=== PATIENT | male | born 1950 | race Caucasian/White ===

== ENCOUNTER 2023-12-12 17:18 | Inpatient (IN) | payer OTHER, MEDICARE, SELFPAY ==
[2023-12-12 12:49] VITALS: BP 149/94
[2023-12-12 13:53] LABS: % Basophils 0.5 % (0-2); % Eosinophils 1.4 % (0-6); % Immature Granulocytes 0.2 % (0-0.5); % Lymphocytes 11.3 % (20.5-51.1); % Monocytes 14.3 % (1.7-9.3); % Neutrophils 72.3 % (42.2-75.2); Absolute Basophils 0.1 10^3/uL (0-0.2); Absolute Eosinophils 0.1 10^3/uL (0-0.7); Absolute Lymphocytes 1.1 10^3/uL (1.2-3.4); Absolute Monocytes 1.4 10^3/uL (0.1-0.6); Absolute Neutrophils 7.1 10^3/uL (1.4-6.5); Hematocrit 39.5 % (39.0-52.0); Mean Corp Hgb Conc. 32.9 g/dL (33.0-37.0); Mean Corpuscular Hgb 27.5 pg (27.0-31.0); Mean Corpuscular Volume 83.5 fL (80.0-94.0); Mean Platelet Volume 8.8 fL (7.4-10.4); Nucleated Red Blood Cells % 0 % (-); Platelet Count 282 10^3/uL (130-400); Red Blood Cell Count 4.73 10^6/uL (4.70-6.10); Red Cell Dist. Width 15.2 % (11.5-14.5); White Blood Cell Count 9.8 10^3/uL (4.8-10.8)
[2023-12-12 14:31] LABS: ALT (SGPT) 20 U/L (0-50); AST (SGOT) 26 U/L (17-59); Albumin 4.5 g/dl (3.5-5.0); Alkaline Phosphatase 90 U/L (38-126); Blood Urea Nitrogen 26 mg/dl (9-20); Calcium 9.3 mg/dl (8.4-10.2); Carbon Dioxide 21 mmol/L (22-30); Chloride 106 mmol/L (98-107); Glucose 145 mg/dl (70-99); Potassium 3.8 mmol/L (3.5-5.1); Sodium 143 mmol/L (135-145); Total Bilirubin 1.2 mg/dl (0.2-1.3); Total Protein 7.2 g/dl (6.3-8.2)
--- NOTE | 2023-12-12 14:36 | ED.GENMED ---
History of Present Illness
General
Chief Complaint: Abdominal Pain
Source: patient
Exam Limitations: none
Time Seen by Provider: 12/12/23 14:05
Nursing documentation reviewed up to this point in time: agreed with
Travel History
Have you had any contact with someone who has COVID-19?: No
Do you have any symptoms of coronavirus? Fever > 100 degrees, chills, cough, shortness of breath, sore throat, loss of taste or smell, muscle aches, or headache?: No
History of Present Illness
History of Present Illness:
Patient is a 73-year-old male with history of scleroderma CAD stents x 6 hypertension hyperlipidemia SC, presents to the ER for evaluation. Patient reports on Sunday 3 days ago he started with vomiting. He vomited once on Sunday but since then he
has had constant diarrhea. He complains of feeling very weak fatigued and dehydrated. Patient is on Xifaxan for bowel issues related to scleroderma but has not taken the past couple days . No other antibx.
Past History
Past History
ED Past Medical History: CAD, GERD, HTN, Hypercholesterolemia, NIDDM, SC and Other (scleroderma, SBO,)
ED Past Surgical History: Cardiac (Stents X 6) and Cholecystectomy
Social History
Tobacco: Non-smoker
Alcohol: None
Drug: None
Personal:
Living: with family
Family History
Family History: CAD
Review of Systems
Review of Systems
Allergies reviewed?: Yes
All Other Systems: ROS reviewed and negative except as documented in HPI and ROS
Constitutional: Reports fatigue
EENT: Reports no symptoms
Respiratory: Reports no symptoms
ABD/GI: Reports diarrhea
: Reports no symptoms
Musculoskeletal: Reports back pain
Skin: Reports no symptoms
Endocrine: Reports no symptoms
Hematologic/Lymphatic: Reports no symptoms
Psychiatric: Reports no symptoms
Phy Exam
General Physical Exam
General Presentation: no apparent distress
General age: appears stated age
General Skin: warm and dry
General Habitus: elderly
General Mental: alert
General Hydration: dry mucous membranes
Cardiovascular Exam
Cardiovascular Exam: tachycardia
Pulmonary Exam
Pulmonary Exam: lungs clear and no respiratory distress
Gastrointestinal Exam
Gastrointestinal Exam: non tender and soft
Neurological Exam
Neurological Exam: alert and oriented x3
Musculoskeletal Exam
Musculoskeletal Exam: full ROM
Skin Exam
Skin Exam: normal color and warm/dry
Course
Orders/Labs/Results
Orders:
Orders
12/12/23 13:38
IV Insert/Care/Rem.- Treatment PRN
12/12/23 13:42
Complete Blood Count/With Diff Urgent
Comprehensive Metabolic Panel Urgent
Lipase Urgent
12/12/23 15:21
Ondansetron Injectable [Zofran] 4 mg .ROUTE .STK-MED ONE
Ondansetron Injectable [Zofran] 4 mg IV NOW STA
12/12/23 15:58
C DIFF [C difficile Antigen & Toxins] Urgent
SEBAS Source: Feces/Stool
Specimen Description:
Stool Culture Urgent
SEBAS Source: Feces/Stool
Specimen Description:
Abnormal Lab Results
12/12/23
13:42
MCHC 32.9 L g/dL
(33.0-37.0)
RDW 15.2 H %
(11.5-14.5)
Absolute Neuts (auto) 7.1 H 10^3/uL
(1.4-6.5)
Absolute Lymphs (auto) 1.1 L 10^3/uL
(1.2-3.4)
Absolute Monos (auto) 1.4 H 10^3/uL
(0.1-0.6)
Lymphocytes % 11.3 L %
(20.5-51.1)
Monocytes % 14.3 H %
(1.7-9.3)
Carbon Dioxide 21 L mmol/L
(22-30)
BUN 26 H mg/dl
(9-20)
Creatinine 1.6 H mg/dL
(0.7-1.3)
Glucose 145 H mg/dl
(70-99)
12/12/23 13:42
12/12/23 13:42
Vital Signs
Initial and Last Documented VS:
Initial Vital Signs
Temp Pulse Resp BP Pulse Ox
98.6 F 110 20 149/94 99
12/12/23 12:49 12/12/23 12:49 12/12/23 12:49 12/12/23 12:49 12/12/23 12:49
Last Documented Vital Signs
Temp Pulse Resp BP Pulse Ox
98.6 F 110 20 149/94 99
12/12/23 12:49 12/12/23 12:49 12/12/23 12:49 12/12/23 12:49 12/12/23 12:49
MDM/Problems Addressed
MDM/Problems Addressed:
Patient is a 71 show male with history of scleroderma CAD SC stents presents to the ER for evaluation. Patient has had several days of constant diarrhea he started out with vomiting but only vomited once. He complains of feeling very weak. On
exam he is obviously dry, dehydrated. He presented initially tachycardic. No white count stable hemoglobin however patient has increased BUN/creatinine with a BUN 26, creatinine 1.6. Patient was given fluids and nausea medicine here in the ER.
Will obtain stool culture C. difficile. Patient is on Xifaxan but has not taken it in the past couple days
*Pulse Oximetry
Patient hypoxic: no
*Critical Care Note
Total Time (30-74mins, 75-104mins- exclusive of procedures): Not Applicable
Data Reviewed
Review of Other/Old Records Reveals: Labs
Source: patient
ED Attending Note
-
Portions of this chart may have been created with voice recognition software.� Occasional wrong word or��sound alike� substitutions may have occurred due to the inherent limitations of voice recognition software.
Discharge Plan
Departure
Patient Disposition: Admit
Date of Disposition: 12/12/23
Time of Disposition: 16:03
Admit to: Med/Surg
Admit to doctor: Ramirez
Presentation/result/management discussed w/ accepting MD/DO: Hospitalist
Patient with high blood pressure during this ER visit?: Yes
Condition: Fair
Covid-19: Not Applicable
Discharge Problem:
Dehydration, Diarrhea, Acute renal insufficiency
Prescriptions:
No Action
losartan 50 MG tablet
50 mg PO HS
Motegrity 2 MG tablet
2 mg PO HS
Hold Instructions: Resume on 04/20/23. Discuss with your rehab director occupational therapist regarding when to resume this medication.
aspirin 81 MG tablet,delayed release (DR/EC)
81 mg PO HS
atorvastatin 80 MG tablet
80 mg PO DAILY
pantoprazole 40 MG tablet,delayed release (DR/EC)
40 mg PO DAILY
nifedipine 30 MG tablet extended release
30 mg PO HS
prednisone 5 mg Tablet
5 mg PO DAILY
glimepiride 2 mg Tablet
2 mg PO DAILY
Domperidone
10 mg PO DAILY
Hold Instructions: Resume on 04/20/23. Discuss with your rehab director occupational therapist regarding when to resume this medication
Rx Instructions:
patient state he gets this from [facility]
pyridostigmine bromide 60 mg tablet
90 mg PO AC
Hold Instructions: Resume on 03/23/23.
Referrals:
Tamara Bell MD [Family Provider] -
Interventions
Interventions:
*Risk Screen - Suicide Last Done: 12/12/23 12:49
*General Assessment Last Done: 12/12/23 12:49
*Neglect/Abuse Screening Last Done: 12/12/23 12:49
ED- Fall Risk Assessment Last Done: 12/12/23 13:59
UX-Tgrofg-Roinxdrxrg Assessment Last Done: 12/12/23 13:52
Discharge Date and Time
Print Language: GUATEMALAN
[2023-12-12 15:06] LABS: Lipase 61 U/L (23-300)
[2023-12-12] MEDS: ZOFRAN 4 MG IV ×2 (15:21→18:28)
[2023-12-12 16:11] VITALS: BP 156/79
--- NOTE | 2023-12-12 16:48 | HPS.HSE ---
Family Physician
-
Family Physician: Tamara Bell
Chief Complaint
-
Diarrhea
History of Present Illness
It all started on Sunday. He threw up once on Sunday. Subsequent to that he started to have diarrhea.
Diarrheal stools are loose and watery. If he drinks it just comes right through him. Even if he does not drink every half an hour he has a loose watery stool. He has chills with it. No fevers recorded at home. He has been feeling exhausted for
the last couple of weeks.
His symptoms crampy abdominal pain now and then.
Since the last 2 weeks when he comes back home after work he feels tired and exhausted.
No new medical diagnoses given. No new medications or any change in medications recently. No recent antibiotics in the last 3 months.
Has a history of scleroderma with no active disease. Not on any treatments. He has changes of the skin at the joints of the hands.
He had an issue with pseudoobstruction for which he was referred to [facility] so saw Dr. Elder and he has been on rifaximin and another mediacation he cant recollect the name for a year now.
He gets rifaximin from [place] as it is expensive here.
Ever since he has been on this new medications ,he has been doing okay without any further pseudoobstruction.
No issues with chronic diarrhea.
No recent travel. No pets at home. No unusual foods consumed.
Medical History
Past Medical History
Past Medical History: Reports CAD (Coronary stents), GERD, HTN and NIDDM
Additional Past Medical History:
Scleroderma
History of SIBO
Past Surgical History: Reports Cholecystectomy
Social History
Tobacco: Non-smoker
Alcohol: None
Drug: None
Employment: Employed
Family History
Family History: Not pertinent
Allergies / Home Medications
Allergies reflects when Allergies were last updated in [employer].
Home Medications with original date entered in [employer]
Allergy/Medication List:
Allergies
Allergy/AdvReac Type Severity Reaction Status Date / Time
No Known Allergies Allergy Verified 12/12/23 12:52
Home Medications
losartan 50 mg tablet 50 mg PO HS Blood pressure 06/19/20
aspirin 81 mg tablet,delayed release 81 mg PO HS Blood clot prevention/tx 06/28/20
atorvastatin 80 mg tablet 80 mg PO DAILY High cholesterol 06/28/20
nifedipine 30 mg tablet,extended release 30 mg PO HS Blood pressure 06/28/20
pantoprazole 40 mg tablet,delayed release 40 mg PO DAILY Gastrointestinal issue 06/28/20
glimepiride 2 mg tablet 2 mg PO DAILY Diabetes 02/08/22
prednisone 5 mg tablet 5 mg PO DAILY SCLERODERMA 02/08/22
pyridostigmine bromide 60 mg tablet 30 mg PO BID@0730,1730 03/19/23
acetaminophen 500 mg tablet (Tylenol Extra Strength) 1,000 mg PO DAILYPRN PRN MILD PAIN 12/12/23
prucalopride 2 mg tablet (Motegrity) 2 mg PO HS 12/12/23
rifaximin 550 mg tablet (Xifaxan) 225 mg PO DAILY 12/12/23
Review of Systems
-
A 12 point ROS was completed and negative except as noted: Yes
Physical Exam
Vital Signs
Vital Signs
Temp Pulse Resp BP Pulse Ox
98.6 F 85 18 156/79 99
12/12/23 12:49 12/12/23 16:11 12/12/23 16:11 12/12/23 16:11 12/12/23 16:11
Physical Exam
General: No Apparent Distress
HEENT: Moist mucous membranes
Respiratory: Clear
Cardiac: S1/S2, Regular Rhythm and Tachycardia
GI: Soft, Non Distended, Normal Bowel Sounds and Tender (Discomfort in all quadrants but no rebound guarding or rigidity.)
Musculoskeletal: No Edema
Neuro: AO x 3
Psych: Calm
Laboratory Results
-
12/12/23 13:42
12/12/23 13:42
Laboratory Results
Total Bilirubin 1.2 mg/dl (0.2-1.3) 12/12/23 13:42
AST 26 U/L (17-59) 12/12/23 13:42
ALT 20 U/L (0-50) 12/12/23 13:42
Alkaline Phosphatase 90 U/L (38-126) 12/12/23 13:42
Lipase 61 U/L (23-300) 12/12/23 13:42
Data Reviewed
-
Lab Data: Labs Reviewed by me
Impression/Plan
-
Acute diarrheal illness of unclear etiology complicated by dehydration.
Patient has history of GI issues including SIBO, intestinal pseudoobstruction? From scleroderma, currently on treatment of his rifaximin plus another unknown medication presents with a week worth of acute diarrheal illness. Multiple episodes of
loose watery stools. Associated chills but no fevers. Not septic.
He had a history of prior Campylobacter diarrhea.
No recent antibiotic exposure.
Doubt this is toxin related gastroenteritis or viral enteritis as it is going on for days now. Rule out bacterial infection or inflammation. Patient also has SIBO on rifaximin which I would continue. Increase the dose to regular treatment dose.
Obtain a CT of the abdomen pelvis with oral contrast
Obtain stool culture including C. difficile, bacterial culture, white count.
Support with IV fluids and symptomatic treatment for nausea.
Consider GI consultation based on initial evaluation.
FLORENCE-suspect secondary to dehydration. Continue with IV fluids and follow creatinine.
Hypertension-continue with his home medication
History of scleroderma-currently not on any treatments
Await medication reconciliation to be completed.
Full code
[2023-12-12] MEDS: NSS 1000 IV (18:05)
[2023-12-12 18:14] VITALS: BP 154/85
[2023-12-12 18:15] VITALS: BMI 20.7
[2023-12-12] MEDS: LOVENOX 40 MG SC (18:26)
--- NOTE | 2023-12-12 20:51 | W.PN.UPDATE ---
Addendum entered and electronically signed by MAILE Villafuerte 12/12/23 21:26:
Pharmacist confirm that there is no 225mg of rifaximin. Spoke to the patient and explained that no 225mg dose and its recommended by the admitting physician to increase the dose to the regular treatment dose of 550mg BID at the mean time. Patient
agreed and the dose was changed back to 550 mg as ordered on admission time.
Original Note:
Update Note
Progress Note Update
Patient requested to change the order of rifaaximin of 550 mg bid to 225 mg as it the dose that he is receiving at home. Order changed per the patient request.
[2023-12-12 21:03] LABS: Urine Sodium 70 mmol/L (30-90)
[2023-12-12] MEDS: XIFAXAN 550 MG PO (22:01)
[2023-12-12] MEDS: ASPIR LOW (ENTERIC COATED) 81 MG PO (22:01)
[2023-12-12] MEDS: PROCARDIA XL (EXTENDED RELEASE) 30 MG PO (22:02)
[2023-12-12 22:30] VITALS: BP 144/71
[2023-12-12 22:32] LABS: Glucose - Point of Care 101 mg/dl (70-99)
[2023-12-13] MEDS: NSS 1000 IV ×3 (02:53→19:38)
[2023-12-13] MEDS: ZOFRAN 4 MG IV (05:41)
[2023-12-13] MEDS: OMNIPAQUE 50 ML PO (06:02)
--- NOTE | 2023-12-13 06:16 | PTCARENOTE ---
Po Contrast for CT started at 6am.
[2023-12-13 06:17] LABS: Hematocrit 35.7 % (39.0-52.0); Hemoglobin 11.9 g/dL (13.0-18.0); Mean Corp Hgb Conc. 33.3 g/dL (33.0-37.0); Mean Corpuscular Hgb 28.1 pg (27.0-31.0); Mean Corpuscular Volume 84.2 fL (80.0-94.0); Mean Platelet Volume 8.9 fL (7.4-10.4); Platelet Count 247 10^3/uL (130-400); Red Blood Cell Count 4.24 10^6/uL (4.70-6.10); Red Cell Dist. Width 15.1 % (11.5-14.5); White Blood Cell Count 8.2 10^3/uL (4.8-10.8)
[2023-12-13 06:40] LABS: Blood Urea Nitrogen 17 mg/dl (9-20); Carbon Dioxide 21 mmol/L (22-30); Chloride 112 mmol/L (98-107); Estimated Creatinine Clearance 58 ml/min; Glucose 127 mg/dl (70-99); Potassium 3.4 mmol/L (3.5-5.1); Sodium 143 mmol/L (135-145); eGFR > 60.00
[2023-12-13 07:00] VITALS: BP 117/64
[2023-12-13] MEDS: XIFAXAN 550 MG PO ×2 (08:19→19:38)
[2023-12-13] MEDS: LIPITOR 80 MG PO (08:19)
[2023-12-13] MEDS: DELTASONE 5 MG PO (08:20)
[2023-12-13] MEDS: PROTONIX 40 MG PO (08:21)
[2023-12-13 08:26] LABS: Glucose - Point of Care 153 mg/dl (70-99)
[2023-12-13] MEDS: MORPHINE SULFATE 1 MG IV ×2 (08:42→15:54)
[2023-12-13] MEDS: NOVOLOG FLEXPEN-LOW RESISTANCE SC ×3 (09:46→16:46)
--- NOTE | 2023-12-13 10:09 | W.PN.HOSP.TC ---
Today's Communication/Plan
-
continue with the rifaximin
Stop pyridostigmine
Follow CT of the abdomen pelvis
Continue with IV fluids
Consult GI
Assessment / Plan
Assessment / Plan
Acute diarrheal illness of unclear etiology complicated by dehydration.
Patient has history of GI issues including SIBO, intestinal pseudoobstruction? From scleroderma, currently on treatment of his rifaximin plus Pyridostigmine presented with a week worth of acute diarrheal illness. Multiple episodes of loose watery
stools. Associated chills but no fevers. Not septic.
He had a history of prior Campylobacter diarrhea.
No recent antibiotic exposure.
Doubt this is toxin related gastroenteritis or viral enteritis as it is going on for days now. Rule out bacterial infection or inflammation. Patient also has SIBO on rifaximin which I would continue. Increase the dose to regular treatment dose
for SIBO.
Obtain a CT of the abdomen pelvis with oral contrast
Obtain stool culture including C. difficile, bacterial culture, white count.
CW IV fluids and symptomatic treatment for nausea.
Consult GI consultation .
Hold Pyridostigmine ( uses it for pseudo obstruction)
FLORENCE-suspect secondary to dehydration. Improved .Continue with IV fluids and follow creatinine.
Hypertension-continue with his home medication
History of scleroderma-currently not on any treatments
Back pain with right leg sciatica-patient now agreeable for pain medication which I would use narcotics.Avoid NSAIDs as his renal function is just recovering.
Full code
total time spent on today's encounter was 52 minutes which included time spent in counseling the patient regarding diagnosis and treatment plan as listed above, goals of care, and symptom management. Case was discussed with nursing staff,
specialists . All labs and imaging personally reviewed by me. Remainder the time spent in detailed review of previous records, lab data, imaging, and other medical provider documentation.
Anticipated Discharge: > 48 hours
Subjective/Interval History
-
Date of Service: December 13, 2023
Feels bit better but is still ongoing diarrheal stools which are still multiple.
Has got chronic back pain and right leg sciatica and he was due to get an epidural this week. He was advised back surgery 2.
Objective Data
-
Labs:
Laboratory Results
12/13/23
06:00
WBC 8.2
Hgb 11.9 L
Hct 35.7 L
Plt Count 247
Sodium 143
Potassium 3.4 L
Chloride 112 H
Carbon Dioxide 21 L
BUN 17
Creatinine 1.1
Glucose 127 H
Calcium 8.0 L
Vital Signs:
Vital Signs
Temp Pulse Resp BP Pulse Ox
97.7 F 82 18 117/64 100
12/13/23 07:00 12/13/23 07:00 12/13/23 07:00 12/13/23 07:00 12/13/23 07:00
I&O
12/12/23 12/13/23 12/14/23
06:59 06:59 06:59
Intake Total 580 / 580
Output Total 225 / 225
Balance 355 / 355
Review of Systems
-
Constitutional: Denies Fever
Respiratory: Denies Trouble Breathing
Cardiac: Denies Chest Pain
Abdomen/GI: Reports Diarrhea; Denies Abdominal Pain, Nausea or Vomiting
Neuro: Denies Dizzy
Physical Exam
-
General: No Apparent Distress
HEENT: Moist Mucous Membranes
Respiratory: Clear to Auscultation
Cardiac: Regular Rhythm and S1/S2
GI: Soft
Neuro: AO x 3
Psych: Calm
Data Reviewed
-
Labs: Labs Reviewed by me
[2023-12-13 12:02] LABS: Glucose - Point of Care 124 mg/dl (70-99)
[2023-12-13 12:02] LABS: Glycohemoglobin (HgbA1c) 6.6 % (4.0-5.6)
--- NOTE | 2023-12-13 12:03 | CON.GI ---
Consultation
-
Date/Time Consultation Requested: 12/13/23 1030
Date/Time Consultation Performed: 12/13/23 1145
Requesting Provider: Dr. Ramirez
Performing Provider: Dr. Alvarez / Martha Rich PA-C
Reason for Consultation: diarrhea
Medical History
Chief Complaint / HPI
Chief Complaint: diarrhea/vomiting
History of Present Illness:
This is a 73 year old male with a past medical history of scleroderma, SIBO, chronic colonic pseudoobstruction, NIDDM who is well-known to our GI practice and follows with Dr. Esparza who presents to the hospital with acute diarrhea that started 4
days ago, 12/08. He states symptoms came on suddenly, he had nausea, vomiting and diarrhea, described as watery stools 'pouring out' 5 times a day. The vomiting subsided after the first day, but he nausea and diarrhea persisted. No abdominal pain,
fever, or black, tarry or bloody stools. No recent travel, sick contacts, or recent antibiotic use. He did eat a tuna sandwich, which was a food he does not usually eat, from a restaurant the night before symptom onset. He has a prior history of a
Campylobacter infection in February 2023 with diffuse colitis, which was treated with azithromycin. He had a colonoscopy with Dr. Esparza in May 2023 which showed sigmoid diverticulosis, and 2 adenomas, but was otherwise unremarkable. He also sees
Dr. Jacome at [facility] and takes a regimen of Motegrity, Mestinon and half a tablet of Xifaxan daily as maintenance. He states this works well for him and he had been feeling well up until 4 days ago. Labs reviewed: no leukocytosis (WBC count 9.8
on admission) and stable hemoglobin (13.0). CT abdomen/pelvis shows mild to moderate diffuse pancolitis without obstruction. Negative C difficile; other stool studies pending.
Past Medical History
Past Medical History: CAD, GERD, HTN, NIDDM and Other (Scleroderma, chronic pseudobstruction, SIBO)
Past Surgical History: Cardiac (stents) and Cholecystectomy
Social History
Tobacco: Non-Smoker
Alcohol: None
Drug: None
Living: Alone
Family History
Family History: Other (no family hx colon CA or polyps)
Allergies / Home Medications
Allergy/AdvReac Type Severity Reaction Status Date / Time
No Known Allergies Allergy Verified 12/12/23 12:52
�Medication �Instructions �Recorded
losartan 50 mg tablet 50 mg PO HS Blood pressure 06/19/20
aspirin 81 mg tablet,delayed 81 mg PO HS Blood clot 06/28/20
release prevention/tx
atorvastatin 80 mg tablet 80 mg PO DAILY High cholesterol 06/28/20
nifedipine 30 mg tablet,extended 30 mg PO HS Blood pressure 06/28/20
release
pantoprazole 40 mg tablet,delayed 40 mg PO DAILY Gastrointestinal 06/28/20
release issue
glimepiride 2 mg tablet 2 mg PO DAILY Diabetes 02/08/22
prednisone 5 mg tablet 5 mg PO DAILY SCLERODERMA 02/08/22
pyridostigmine bromide 60 mg tablet 30 mg PO BID@0730,1730 03/19/23
Gastrointestinal Issue
acetaminophen 500 mg tablet 1,000 mg PO DAILYPRN PRN MILD PAIN 12/12/23
(Tylenol Extra Strength)
prucalopride 2 mg tablet 2 mg PO HS Constipation 12/12/23
(Motegrity)
rifaximin 550 mg tablet (Xifaxan) 225 mg PO DAILY Gastrointestinal 12/12/23
Issue
Review of Systems
-
History Source: Patient
All other systems: A 12 pt ROS was Negative except as stated above in HPI
Vital Signs
Temp Pulse Resp BP Pulse Ox
97.7 F 82 18 117/64 100
12/13/23 07:00 12/13/23 07:00 12/13/23 07:00 12/13/23 07:00 12/13/23 07:00
Physical Exam
Exam
General: Well Developed, Well Nourished and No Apparent Distress
Respiratory: Clear
Cardiac: Regular Rhythm
GI: Soft, Non Tender, Non Distended and Normal Bowel Sounds
Skin: Warm and Dry
Neuro: AO x 3
Psych: Calm
Results
WBC 8.2 10^3/uL (4.8-10.8) 12/13/23 06:00
Hgb 11.9 g/dL (13.0-18.0) L 12/13/23 06:00
Hct 35.7 % (39.0-52.0) L 12/13/23 06:00
MCV 84.2 fL (80.0-94.0) 12/13/23 06:00
Plt Count 247 10^3/uL (130-400) 12/13/23 06:00
Absolute Neuts (auto) 7.1 10^3/uL (1.4-6.5) H 12/12/23 13:42
Sodium 143 mmol/L (135-145) 12/13/23 06:00
Potassium 3.4 mmol/L (3.5-5.1) L 12/13/23 06:00
Chloride 112 mmol/L (98-107) H 12/13/23 06:00
Carbon Dioxide 21 mmol/L (22-30) L 12/13/23 06:00
BUN 17 mg/dl (9-20) 12/13/23 06:00
Creatinine 1.1 mg/dL (0.7-1.3) 12/13/23 06:00
Calcium 8.0 mg/dl (8.4-10.2) L 12/13/23 06:00
Total Bilirubin 1.2 mg/dl (0.2-1.3) 12/12/23:42
AST 26 U/L (17-59) 12/12/23 13:42
ALT 20 U/L (0-50) 12/12/23 13:42
Alkaline Phosphatase 90 U/L (38-126) 12/12/23 13:42
Lipase 61 U/L (23-300) 12/12/23 13:42
Diagnostic Image Results:
CT Abdomen/Pelvis with IV contrast:
1. Mild to moderate diffuse pancolitis, which may be infectious or inflammatory.
2. Chronic findings otherwise appear similar compared to the CT abdomen/pelvis from 04/11/2023, as detailed above.
Prior GI Procedures:
Colonoscopy:
06/15/2023, Dr. Esparza:
-One 10 mm polyp at the hepatic flexure, removed with
a hot snare. Resected and retrieved.
- One diminutive polyp in the descending colon,
removed with a jumbo cold forceps. Resected and
retrieved.
- Diverticulosis in the sigmoid colon.
-Path: tubular adenomas
-Repeat in 3 years for surveillance.
Assessment / Plan
-
This is a 73 year old male with a past medical history of scleroderma, SIBO, chronic colonic pseudoobstruction, NIDDM who is well-known to our GI practice and follows with Dr. Esparza who presents to the hospital with acute diarrhea that started 4
days ago, 12/08. He states symptoms came on suddenly, he had nausea, vomiting and diarrhea, described as watery stools 'pouring out' 5 times a day. The vomiting subsided after the first day, but he nausea and diarrhea persisted. No abdominal pain,
fever, or black, tarry or bloody stools. No recent travel, sick contacts, or recent antibiotic use. He did eat a tuna sandwich, which was a food he does not usually eat, from a restaurant the night before symptom onset. He has a prior history of a
Campylobacter infection in February 2023 with diffuse colitis, which was treated with azithromycin. He had a colonoscopy with Dr. Esparza in May 2023 which showed sigmoid diverticulosis, and 2 adenomas, but was otherwise unremarkable. He also sees
Dr. Jacome at [facility] and takes a regimen of Motegrity, Mestinon and half a tablet of Xifaxan daily as maintenance. He states this works well for him and he had been feeling well up until 4 days ago. Labs reviewed: no leukocytosis (WBC count 9.8
on admission) and stable hemoglobin (13.0). CT abdomen/pelvis shows mild to moderate diffuse pancolitis without obstruction. Negative C difficile; other stool studies pending.
IMPRESSION / PLAN:
Diarrhea, acute with mild-moderate diffuse pancolitis
- Infectious vs inflammatory etiology, suspect more likely to be infectious
- C difficile negative; other stool cultures pending
- will further test for ova and parasites, Giardia, Cryptosporidium, Yersinia and Norovirus
- continue IV fluids
- Clear liquid diet
- Hold Mestinon and Motegrity
- Continue Xifaxan
Other medical problems managed as per hospitalist. We will follow.
-
-
Thank you for consultation and allowing me to participate in the patient's care. Please call the mental health professional GI physician during the after hours with any questions or concerns.
--- NOTE | 2023-12-13 13:24 | CM ---
Reviewed chart, placed a call to patient (as he is on contact precautions), patient answered and stated that he could provide information for assessment. Patient lives alone in a 2 story home with no steps to enter through the garage. He stated that
he is independent with his ADLs, bathing, dressing, and ambulates without device. He denied any DME in his home. He can do all the cooking, cleaning, clinical haematologist and laundry. He drives and can get to his appointments and do all of his own
shopping. 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
He has never had VN services.
He has a prescription plan and uses [facility] on [address] for all of his medications.
Patient's PCP is, Tamara Bell.
patient stated that physically he feels he is at baseline and does not anticipate that he will have any needs at time of discharge.
Plan: Case management will continue to follow and assist with discharge planning. Should be home no needs.
[2023-12-13 15:00] VITALS: BP 139/66
[2023-12-13 16:26] LABS: Glucose - Point of Care 115 mg/dl (70-99)
[2023-12-13] MEDS: LOVENOX 40 MG SC (17:53)
[2023-12-13] MEDS: MORPHINE SULFATE 2 MG IV ×2 (18:06→22:34)
[2023-12-13 21:42] LABS: Glucose - Point of Care 120 mg/dl (70-99)
[2023-12-13] MEDS: ASPIR LOW (ENTERIC COATED) 81 MG PO (22:35)
[2023-12-13] MEDS: PROCARDIA XL (EXTENDED RELEASE) 30 MG PO (22:35)
[2023-12-13 23:06] VITALS: BP 144/72
--- NOTE | 2023-12-14 03:25 | W.PN.UPDATE ---
Update Note
Progress Note Update
RN notified LOTTERY MANAGER, patient is c/o Right knee pain and requesting to see the LOTTERY MANAGER. Patient seen and evaluated, patient stated he is in 10/10 of pain Right knee, unable to describe, reports he has hx of Right sciatica and pain may be from that. Pain is at
the Right knee without radiating, unable to straighten due to pain. No swelling no redness noted, denies any recent falls. Will order lidocaine patch at present, Right knee pain, likely due to sciatica or joint pain from IBS. May need outpatient
eval.
[2023-12-14] MEDS: FLUSH (NSS) 2 FLUSH IV (03:32)
[2023-12-14] MEDS: MORPHINE SULFATE 2 MG IV ×2 (03:32→19:54)
[2023-12-14] MEDS: NSS 1000 IV (05:15)
[2023-12-14] MEDS: LIDOCAINE 4% PATCH 1 PATCH TOPICAL ×2 (05:15→09:51)
[2023-12-14 05:43] LABS: Hematocrit 34.9 % (39.0-52.0); Hemoglobin 11.5 g/dL (13.0-18.0); Mean Corpuscular Hgb 27.1 pg (27.0-31.0); Mean Corpuscular Volume 82.3 fL (80.0-94.0); Mean Platelet Volume 8.8 fL (7.4-10.4); Platelet Count 257 10^3/uL (130-400); Red Blood Cell Count 4.24 10^6/uL (4.70-6.10); Red Cell Dist. Width 14.9 % (11.5-14.5); White Blood Cell Count 9.3 10^3/uL (4.8-10.8)
[2023-12-14 06:10] LABS: Blood Urea Nitrogen 9 mg/dl (9-20); Calcium 8.3 mg/dl (8.4-10.2); Carbon Dioxide 20 mmol/L (22-30); Chloride 110 mmol/L (98-107); Estimated Creatinine Clearance 70 ml/min; Glucose 122 mg/dl (70-99); Potassium 3.6 mmol/L (3.5-5.1); Sodium 139 mmol/L (135-145); eGFR > 60.00
[2023-12-14 07:00] VITALS: BP 127/71
[2023-12-14 08:40] LABS: Glucose - Point of Care 98 mg/dl (70-99)
[2023-12-14] MEDS: NOVOLOG FLEXPEN-LOW RESISTANCE SC ×2 (09:39→18:26)
[2023-12-14] MEDS: XIFAXAN 550 MG PO ×2 (09:52→20:49)
[2023-12-14] MEDS: PROTONIX 40 MG PO (09:52)
[2023-12-14] MEDS: DELTASONE 5 MG PO (09:52)
[2023-12-14] MEDS: LIPITOR 80 MG PO (09:52)
--- NOTE | 2023-12-14 10:50 | W.PN.GI.CBS2 ---
Today's Communication / Plan
-
Symptoms resolved, advance to low residue diet. GI will sign off, outpatient f/u with Dr. Esparza
Assessment / Plan
-
This is a 73 year old male with a past medical history of scleroderma, SIBO, chronic colonic pseudoobstruction, NIDDM who is well-known to our GI practice and follows with Dr. Esparza who presents to the hospital with acute diarrhea that started 4
days ago, 12/08. He states symptoms came on suddenly, he had nausea, vomiting and diarrhea, described as watery stools 'pouring out' 5 times a day. The vomiting subsided after the first day, but he nausea and diarrhea persisted. No abdominal pain,
fever, or black, tarry or bloody stools. No recent travel, sick contacts, or recent antibiotic use. He did eat a tuna sandwich, which was a food he does not usually eat, from a restaurant the night before symptom onset. He has a prior history of a
Campylobacter infection in February 2023 with diffuse colitis, which was treated with azithromycin. He had a colonoscopy with Dr. Esparza in May 2023 which showed sigmoid diverticulosis, and 2 adenomas, but was otherwise unremarkable. He also sees
Dr. Jacome at [place] and takes a regimen of Motegrity, Mestinon and half a tablet of Xifaxan daily as maintenance. He states this works well for him and he had been feeling well up until 4 days ago. Labs reviewed: no leukocytosis (WBC count 9.8
on admission) and stable hemoglobin (13.0).
CT abdomen/pelvis shows mild to moderate diffuse pancolitis without obstruction. Negative C difficile, salmonella/shigella, camplobacter, Ecoli, norovirus, cryptosporidium/giarda all negative. Stool WBC neg.
Diarrhea seems to have resolved, suspect viral gastroenteritis given his rapid improved clinical course. No increase in symptoms with full liquid diet, will advance to low residue diet. As long as he tolerates without worsening symptoms, okay for
discharge from a GI perspective with outpatient f/u with Dr. Esparza. Continue to hold Mestinon and Motegrity, would wait a few more days before reinitiating and his stools are solid/formed again.
Other medical problems managed as per hospitalist.
Subjective
Subjective
Date of Service: December 14, 2023
Patient seen in follow-up today, reports tolerating full liquid diet last night, would like to advance to regular diet this morning. Denies any abdominal pain or episodes of diarrhea, he had 1 yesterday. His only complaint today is knee pain which
started overnight, on the lateral aspect of his knee. Denies any traumatic event.
Objective
Data Reviewed
Laboratory Data:
Laboratory Results
12/14/23 05:25
12/14/23 05:25
Laboratory Results
Total Bilirubin 1.2 mg/dl (0.2-1.3) 12/12/23 13:42
AST 26 U/L (17-59) 12/12/23 13:42
ALT 20 U/L (0-50) 12/12/23 13:42
Alkaline Phosphatase 90 U/L (38-126) 12/12/23 13:42
Lipase 61 U/L (23-300) 12/12/23 13:42
Vital Signs and I&O:
Vital Signs
Temp Pulse Resp BP Pulse Ox
98.3 F 83 17 127/71 99
12/14/23 07:00 12/14/23 07:00 12/14/23 07:00 12/14/23 07:00 12/14/23 07:00
I&O
12/13/23 12/14/23 12/15/23
06:59 06:59 06:59
Intake Total 580 / 580 1679
Output Total 225 / 225
Balance 355 / 355 1679
Physical Exam
Physical Exam
GENERAL: In no acute distress, appears comfortable
HEENT: no scleral icterus, mucous membranes moist, OP clear
RESP: Nonlabored respirations, clear to ausculation, b/l
CV: RRR, S1/S2
ABDOMEN: +BS; soft, non-tender and non-distended; no rebound or guarding
EXT: No LE edema, +TTP on lateral aspect of right knee
SKIN: Dry, warm
NEURO: AAOx3
[2023-12-14 12:01] LABS: Glucose - Point of Care 180 mg/dl (70-99)
--- NOTE | 2023-12-14 12:23 | W.PN.HOSP.TC ---
Today's Communication/Plan
-
-X-ray of right knee
Start on colchicine
Consult Ortho
Continue with rifaximin and continue to hold Pyridostigmine.
Assessment / Plan
Assessment / Plan
Acute diarrheal illness complicated by dehydration.
Hx of SIBO
Hx of chronic intestinal pseudoobstruction? From scleroderma
He had a history of prior Campylobacter diarrhea.
No recent antibiotic exposure.
CT abdomen pelvis shows mild to moderate diffuse pancolitis. Stool culture negative. No white count seen in stools. With increased dose of rifaximin and and holding pyridostigmine has diarrhea is resolving. Unclear etiology of the colitis. With
the current clinical improvement with above treatments I would continue with current dose of rifaximin and continue to hold pyridostigmine. No evidence of bowel obstruction noted on CT abdomen pelvis.
Acute right knee pain-suspect acute arthritis of the knee than sciatica related. In view of dehydration and prior history of pseudogout I suspect this may be acute pseudogout attack. Started on colchicine. Obtain an x-ray. Consult orthopedics
for diagnostic arthrocentesis.
FLORENCE-suspect secondary to dehydration. Resolved .
Hypertension-continue with his home medication
History of scleroderma-currently not on any treatments
Back pain with right leg sciatica- follow with ortho as OP for epidural as planned.
Full code
DW Ortho via TT
total time spent on today's encounter was 52 minutes which included time spent in counseling the patient regarding diagnosis and treatment plan as listed above, goals of care, and symptom management. Case was discussed with nursing staff,
specialists . All labs and imaging personally reviewed by me. Remainder the time spent in detailed review of previous records, lab data, imaging, and other medical provider documentation.
Anticipated Discharge: 24 - 48 hours
Subjective/Interval History
-
Date of Service: December 14, 2023
Complains of right knee acute pain. Does have back pain with right leg sciatica but this pain is focused to the right knee. No trauma. He doesn't remember twisting right knee either.
Remote history of pseudogout.
Improved diarrhea. No abdominal pain. No nausea or vomiting.
Objective Data
-
Labs:
Laboratory Results
12/14/23
05:25
WBC 9.3
Hgb 11.5 L
Hct 34.9 L
Plt Count 257
Sodium 139
Potassium 3.6
Chloride 110 H
Carbon Dioxide 20 L
BUN 9
Creatinine 0.9
Glucose 122 H
Calcium 8.3 L
Vital Signs:
Vital Signs
Temp Pulse Resp BP Pulse Ox
98.3 F 83 17 127/71 99
12/14/23 07:00 12/14/23 07:00 12/14/23 07:00 12/14/23 07:00 12/14/23 07:00
I&O
12/13/23 12/14/23 12/15/23
06:59 06:59 06:59
Intake Total 580 / 580 1680 / 1680
Output Total 225 / 225
Balance 355 / 355 0 / 1680
Review of Systems
-
Constitutional: Denies Fever
Respiratory: Denies Trouble Breathing
Cardiac: Denies Chest Pain
Neuro: Denies Dizzy
Physical Exam
-
General: No Apparent Distress
HEENT: Moist Mucous Membranes
Respiratory: Clear to Auscultation
Cardiac: Regular Rhythm and S1/S2
GI: Soft, Nontender, Nondistended and Normal Bowel Sounds
Musculoskeletal: Other (Right knee with very limited range of motion due to pain. He has lot of tenderness in the lateral joint line area. Right knee seems to be slightly warmer. Not much of knee effusion noted)
Neuro: AO x 3
Psych: Calm
Data Reviewed
-
Labs: Labs Reviewed by me
[2023-12-14] MEDS: COLCHICINE 0.599999999999999978 MG PO ×2 (13:45→20:49)
[2023-12-14] MEDS: NOVOLOG FLEXPEN-LOW RESISTANCE 1 UNITS SC (13:46)
[2023-12-14 15:00] VITALS: BP 137/69
[2023-12-14 16:38] LABS: Glucose - Point of Care 145 mg/dl (70-99)
[2023-12-14] MEDS: NSS IV (16:56)
[2023-12-14] MEDS: LOVENOX 40 MG SC (18:31)
--- NOTE | 2023-12-14 18:44 | CON.ORTHO ---
Consultation
-
Date/Time Consultation Requested: 1145 AM 12/14/2023
Date/Time Consultation Performed: 615 PM 12/14/2023
Requesting Provider: James
Performing Provider: Shahbaz
Reason for Consultation: Right knee pain
Consultation - Orthopedics
History
HPI: 73-year-old male history of scleroderma presented to the [facility] emergency department for diarrhea, emesis and nausea. He was subsequent admitted to the hospital service for pancolitis. During his hospitalization he developed atraumatic
onset of severe right knee pain. Orthopedics was consulted for evaluation and treatment and specifically consideration of right knee aspiration for diagnostic purposes. Patient does report that he has a history of pseudogout. He also follows with
spine service for lumbar radicular symptoms and has undergone injections in the past. He denies any previous right knee pain similar to what he is experiencing. He does report that the knee pain he is experiencing does feel somewhat similar in
intensity however to pseudogout attacks that he had in his hands in the past. Denies any trauma or change in activity recently.
Allergies / Home Medications
Past medical history: Scleroderma, coronary artery disease, GERD, hypertension, diabetes, pseudogout
Past surgical history: Cholecystectomy
Social history: Employed, non-smoker
Family history: Not pertinent
Allergy/AdvReac Type Severity Reaction Status Date / Time
No Known Allergies Allergy Verified 12/12/23 12:52
�Medication �Instructions �Recorded
losartan 50 mg tablet 50 mg PO HS Blood pressure 06/19/20
aspirin 81 mg tablet,delayed 81 mg PO HS Blood clot 06/28/20
release prevention/tx
atorvastatin 80 mg tablet 80 mg PO DAILY High cholesterol 06/28/20
nifedipine 30 mg tablet,extended 30 mg PO HS Blood pressure 06/28/20
release
pantoprazole 40 mg tablet,delayed 40 mg PO DAILY Gastrointestinal 06/28/20
release issue
glimepiride 2 mg tablet 2 mg PO DAILY Diabetes 02/08/22
prednisone 5 mg tablet 5 mg PO DAILY SCLERODERMA 02/08/22
pyridostigmine bromide 60 mg tablet 30 mg PO BID@0730,1730 03/19/23
Gastrointestinal Issue
acetaminophen 500 mg tablet 1,000 mg PO DAILYPRN PRN MILD PAIN 12/12/23
(Tylenol Extra Strength)
prucalopride 2 mg tablet 2 mg PO HS Constipation 12/12/23
(Motegrity)
rifaximin 550 mg tablet (Xifaxan) 225 mg PO DAILY Gastrointestinal 12/12/23
Issue
Vital Signs / Lab Results
Temp Pulse Resp BP Pulse Ox
98.5 F 90 17 137/69 99
12/14/23 15:00 12/14/23 15:00 12/14/23 07:00 12/14/23 15:00 12/14/23 15:00
12/14/23 05:25
12/14/23 05:25
10 point review systems reviewed and negative unless otherwise stated
General: No acute distress at rest, conversant
Musculoskeletal right knee
Skin intact, no erythema, no ecchymotic staining
No significant palpable synovial warmth
There is a moderate palpable knee effusion
There is significant pain with any active or passive range of motion of right knee
Patient is able to achieve complete extension actively but has significant pain with any attempted knee flexion
There is quite significant tenderness palpation along the lateral joint line and to a lesser extent medial joint line
There is no gross instability with ligamentous stress testing
Distal motor and sensation at baseline
Diagnostic studies
X-rays right knee taken today in the hospital and ability by myself show no fracture dislocations. Nonweightbearing views. There is very mild joint space narrowing. Very faint chondrocalcinosis noted
Procedure: Right knee aspiration
Risks and benefits of procedure were discussed at length with patient verbal consent was obtained. Utilizing superolateral approach the knee, skin was marked and cleaned with alcohol. A 20-gauge needle was then introduced in the suprapatellar
pouch and approximately 10 cc of yellow-tinged fluid was aspirated. There was no evidence of particulate or cloudiness to the aspirate fluid. Band-Aid was applied and knee was wrapped with Jase bandage.
Assessment / Plan
73-year-old male history of scleroderma admitted for pancolitis with acute onset atraumatic right knee pain with history of pseudogout. Given the patient's history of pseudogout and atraumatic onset of symptoms, there is a high thick suspicion of
potential pseudogout flare in his right knee particularly in the setting of his dehydration. I was asked to aspirate patient's right knee and explained to him the details of the procedure as well as the rationale behind the aspiration for
diagnostic purposes. This was performed without complication. Would recommend continued pain control anti-inflammatory medications was otherwise medically contraindicated per primary service. We did send the fluid for synovial fluid analysis to
include cell count, Gram stain, cultures, crystals and PCR Lyme testing. Will plan to follow-up these results. No further orthopedic intervention planned.
[2023-12-14 19:32] LABS: Body Fluid Mononuclear 17 %; Body Fluid Polymorphonuclear 83 %
[2023-12-14 19:35] LABS: Body Fluid WBC 5830 /CUMM
[2023-12-14 20:33] LABS: Body Fluid Second Tech JK
[2023-12-14 21:41] LABS: Glucose - Point of Care 138 mg/dl (70-99)
[2023-12-14] MEDS: ASPIR LOW (ENTERIC COATED) 81 MG PO (22:45)
[2023-12-14] MEDS: DILAUDID 0.5 MG IV (22:52)
[2023-12-14 23:00] VITALS: BP 157/82
[2023-12-14] MEDS: PROCARDIA XL (EXTENDED RELEASE) 30 MG PO (23:13)
[2023-12-15] MEDS: DILAUDID 0.5 MG IV ×3 (04:59→14:06)
[2023-12-15] MEDS: NSS IV (05:09)
[2023-12-15] MEDS: MORPHINE SULFATE 2 MG IV (05:18)
--- NOTE | 2023-12-15 05:25 | PTCARENOTE ---
Patient with 10 out of 10 right knee pain. Contacted house provider who provided one time order for Dilaudid 0.5 mg IV x 1. Medication given as per SEP. Patient still remained w/ 10 out of 10 right knee pain. Notified house provider who approved
giving additional PRN dose of Morphine 2 mg IV now. Medication given, patient appears more comfortable.
[2023-12-15 07:45] VITALS: BP 125/77
[2023-12-15 08:05] LABS: Glucose - Point of Care 157 mg/dl (70-99)
[2023-12-15] MEDS: NOVOLOG FLEXPEN-LOW RESISTANCE 1 UNITS SC ×3 (09:36→17:12)
[2023-12-15] MEDS: XIFAXAN 550 MG PO ×2 (09:37→20:11)
[2023-12-15] MEDS: DELTASONE 5 MG PO (09:39)
[2023-12-15] MEDS: PROTONIX 40 MG PO (09:39)
[2023-12-15] MEDS: LIDOCAINE 4% PATCH 1 PATCH TOPICAL (09:39)
[2023-12-15] MEDS: COLCHICINE 0.599999999999999978 MG PO (09:39)
[2023-12-15] MEDS: LIPITOR 80 MG PO (09:39)
[2023-12-15] MEDS: FLUSH (NSS) 2 FLUSH IV ×2 (09:51→14:06)
--- NOTE | 2023-12-15 09:52 | W.PN.HOSP.TC ---
Today's Communication/Plan
-
DC colchicine. Start on Toradol and see the response.
Switch to Dilaudid from morphine for pain control
Follow fluid culture data.
Assessment / Plan
Assessment / Plan
Acute diarrheal illness complicated by dehydration.
Hx of SIBO
Hx of chronic intestinal pseudoobstruction? From scleroderma
He had a history of prior Campylobacter diarrhea.
No recent antibiotic exposure.
CT abdomen pelvis shows mild to moderate diffuse pancolitis. Stool culture negative. No white count seen in stools. With increased dose of rifaximin and and holding pyridostigmine has diarrhea is resolving. Unclear etiology of the colitis. With
the current clinical improvement with above treatments I would continue with current dose of rifaximin and continue to hold pyridostigmine. No evidence of bowel obstruction noted on CT abdomen pelvis.
Acute right knee pain-suspect acute arthritis of the knee than sciatica related. In view of dehydration and prior history of pseudogout I suspect this may be acute pseudogout attack. Started on colchicine.
x-ray shows tricompartment arthritis and also chondrocalcinosis. With acute onset of attack , history of pseudogout and the x-ray findings though you do not see crystals in the fluid itself it could still be pseudogout. Sometimes crystals are
seen in the tissue then in the fluid. Since his renal function has recovered well and he has not responded to colchicine in the past we will start on Toradol. Await culture data and if negative and if continued pain will consider steroid
injection. Switch to Dilaudid from morphine due to intensity of his pain.
FLORENCE-suspect secondary to dehydration. Resolved .
Hypertension-continue with his home medication
History of scleroderma-currently not on any treatments
Back pain with right leg sciatica- follow with ortho as OP for epidural as planned.
Full code
DW son at bedside
DW RN
total time spent on today's encounter was 52 minutes which included time spent in counseling the patient regarding diagnosis and treatment plan as listed above, goals of care, and symptom management. Case was discussed with nursing staff.. All
labs and imaging personally reviewed by me. Remainder the time spent in detailed review of previous records, lab data, imaging, and other medical provider documentation.
Anticipated Discharge: > 48 hours
Subjective/Interval History
-
Date of Service: December 15, 2023
His initial problem diarrhea settled down but now troubled with the right knee pain. More pain today. Again isolated to the right knee. He feels stiff in his joint. He has a history of scleroderma. He has history of Raynaud's.
Colchicine did not help pseudogout attacks in the past.
Objective Data
-
Vital Signs:
Vital Signs
Temp Pulse Resp BP Pulse Ox
98.2 F 121 18 125/77 99
12/15/23 07:45 12/15/23 07:45 12/15/23 07:45 12/15/23 07:45 12/15/23 07:45
I&O
12/14/23 12/15/23 12/16/23
06:59 06:59 06:59
Intake Total 1680 / 1680 510 / 510 240 / 240
Output Total 200 / 200
Balance 1680 / 1680 510 / 510 40 / 40
Review of Systems
-
Constitutional: Denies Fever or Chills
Respiratory: Denies Trouble Breathing
Cardiac: Denies Chest Pain
Abdomen/GI: Denies Nausea, Vomiting or Diarrhea
Neuro: Denies Dizzy
Physical Exam
-
General: No Apparent Distress
HEENT: Moist Mucous Membranes
Respiratory: Non Labored Respirations; Negative Accessory Resp Muscle Use
Cardiac: Regular Rhythm and S1/S2
GI: Soft
Musculoskeletal: Other ( Right knee with allodynia and PROM with min movements)
Neuro: AO x 3
Psych: Calm
Data Reviewed
-
Labs: Labs Reviewed by me
[2023-12-15 11:50] LABS: Glucose - Point of Care 168 mg/dl (70-99)
[2023-12-15] MEDS: TORADOL 15 MG IV ×2 (12:04→17:10)
--- NOTE | 2023-12-15 12:49 | W.PN.UPDATE ---
Update Note
Progress Note Update
Did see patient today and reviewed aspirate fluid results with patient. Results not concerning for infection, no crystals visualized. He does report that he receives corticosteroid injections in his hands for previous pseudogout flares and he did
have questions regarding potential corticosteroid injection for his knee pain. I explained to him that I will discuss this with the primary service to ensure no medical concerns or contraindications from their standpoint regarding ongoing medical
treatment during his hospitalization.
[2023-12-15 15:45] VITALS: BP 135/77
[2023-12-15 16:54] LABS: Glucose - Point of Care 184 mg/dl (70-99)
[2023-12-15] MEDS: LOVENOX 40 MG SC (17:11)
[2023-12-15 21:18] LABS: Glucose - Point of Care 191 mg/dl (70-99)
[2023-12-15] MEDS: PROCARDIA XL (EXTENDED RELEASE) 30 MG PO (21:49)
[2023-12-15] MEDS: ASPIR LOW (ENTERIC COATED) 81 MG PO (21:49)
[2023-12-15 23:00] VITALS: BP 136/75
[2023-12-16] MEDS: TORADOL 15 MG IV ×2 (00:16→06:00)
[2023-12-16 07:00] VITALS: BP 109/71
[2023-12-16 08:00] VITALS: BP 109/71
[2023-12-16 08:12] LABS: Blood Urea Nitrogen 23 mg/dl (9-20); Calcium 8.3 mg/dl (8.4-10.2); Carbon Dioxide 24 mmol/L (22-30); Chloride 104 mmol/L (98-107); Estimated Creatinine Clearance 53 ml/min; Glucose 144 mg/dl (70-99); Potassium 3.8 mmol/L (3.5-5.1); Sodium 139 mmol/L (135-145); eGFR > 60.00
[2023-12-16 08:12] LABS: Glucose - Point of Care 161 mg/dl (70-99)
[2023-12-16] MEDS: XIFAXAN 550 MG PO (08:44)
[2023-12-16] MEDS: DELTASONE 5 MG PO (08:44)
[2023-12-16] MEDS: LIPITOR 80 MG PO (08:44)
[2023-12-16] MEDS: PROTONIX 40 MG PO (08:44)
[2023-12-16] MEDS: LIDOCAINE 4% PATCH 1 PATCH TOPICAL (08:44)
[2023-12-16] MEDS: NOVOLOG FLEXPEN-LOW RESISTANCE SC (08:50)
[2023-12-16] MEDS: FLUSH (NSS) 1 FLUSH IV (08:57)
[2023-12-16] MEDS: ZOFRAN 4 MG IV (08:57)
--- NOTE | 2023-12-16 10:51 | W.PN.HOSP.TC ---
Today's Communication/Plan
-
DC
Assessment / Plan
Assessment / Plan
Acute diarrheal illness complicated by dehydration.
Campylobacterial diarheal illness
Hx of SIBO
Hx of chronic intestinal pseudoobstruction? From scleroderma
He had a history of prior Campylobacter diarrhea.
No recent antibiotic exposure.
CT abdomen pelvis shows mild to moderate diffuse pancolitis.No evidence of bowel obstruction noted on CT abdomen pelvis. With increased dose of rifaximin and and holding pyridostigmine his diarrhea resolved. Initially stool cultures were
negative but then got report yesterday that the stool is positive for Campylobacter. His symptoms have now resolved I suspect rifaximin took care of his infection. Consult ID because of the recurrent Campylobacter bacterial infection in the
setting of SIBO and pseudoobstruction. Will restart his Pyridostigmine for chronic pseudoobstruction.
Acute right knee pain-suspect acute arthritis of the knee than sciatica related. In view of dehydration and prior history of pseudogout I suspect this may be acute pseudogout attack. Started on colchicine.
x-ray shows tricompartment arthritis and also chondrocalcinosis. With acute onset of attack , history of pseudogout and the x-ray findings though you do not see crystals in the fluid itself it could still be pseudogout. Sometimes crystals are
seen in the tissue then in the fluid. Since his renal function has recovered well and he has not responded to colchicine in the past.
Significant improvement with Toradol. His pain is essentially gone and able to ambulate. Fluid cultures from the right knee and negative.
Discussed about short term NSAID use. Advised to keep him hydrated well.
colchicine has not helped him in the past. Would not increase steroids with improvement with NSAIDs. Advised PPI while on NSAIDs.
FLORENCE-suspect secondary to dehydration. Resolved .
Hypertension-continue with his home medication
History of scleroderma-currently not on any treatments
Back pain with right leg sciatica- follow with ortho as OP for epidural as planned.
Full code
DC after seen by ID
Anticipated Discharge: Today
Subjective/Interval History
-
Date of Service: December 16, 2023
Resolved rt knee pain ;able to walk to bathroom now.
No diarrhea.
Keen to go home today.
Objective Data
-
Labs:
Laboratory Results
12/16/23
07:26
Sodium 139
Potassium 3.8
Chloride 104
Carbon Dioxide 24
BUN 23 H
Creatinine 1.2
Glucose 144 H
Calcium 8.3 L
Vital Signs:
Vital Signs
Temp Pulse Resp BP Pulse Ox
98.3 F 106 12 109/71 95
12/16/23 07:00 12/16/23 07:00 12/15/23 23:00 12/16/23 07:00 12/16/23 07:00
I&O
12/15/23 12/16/23 12/17/23
06:59 06:59 06:59
Intake Total 510 / 510 1240 / 1240
Output Total 200 / 200
Balance 510 / 510 1040 / 1040
Review of Systems
-
Constitutional: Denies Fever
Respiratory: Denies Trouble Breathing
Cardiac: Denies Chest Pain
Neuro: Denies Dizzy or Headache
Physical Exam
-
General: No Apparent Distress
Respiratory: Non Labored Respirations; Negative Accessory Resp Muscle Use
GI: Soft
Musculoskeletal: Other (Improved ROM in right knee)
Neuro: AO x 3
Data Reviewed
-
Labs: Labs Reviewed by me (fluid cx)
--- NOTE | 2023-12-16 10:53 | W.PN.UPDATE ---
Update Note
Progress Note Update
Patient was seen by myself this morning. We had a conversation regarding possibility of intra-articular right knee corticosteroid injection in attempt alleviate his acute right knee pain for presumed pseudogout flare. Patient reports that he is
actually feeling significant improvement and really is not complaining much in terms of pain today after receiving Toradol. At this point we mutually decided to not proceed with intra-articular corticosteroid injection. He does have upcoming
appointment with his logistics project manager who normally performs injections and he will plan to have further discussion regarding potential future injections with his logistics project manager on outpatient basis. No further orthopedic intervention planned.
[2023-12-16 11:43] LABS: Glucose - Point of Care 160 mg/dl (70-99)
--- NOTE | 2023-12-16 12:46 | CON.ID ---
Consultation
-
Date/Time Consultation Requested: 12/15/23 14:46
Date/Time Consultation Performed: 12/06/23 12:47
Requesting Provider: Dr Ramirez
Performing Provider: Dr Garcia
Reason for Consultation: recurrent campylobacter GI infections
Chief Complaint / Past History
Chief Complaint
diarrhea
History of Present Illness
Mr Wing is a 73 year old male with history of scleroderma on pred 5 mg daily, colonic pseudoobstruction, SIBO on rifaximin. Presented here 12/11 for watery diarrhea and chills without fevers. + crampy abdominal pain. Diarrhea persisted even
when he didnt eat No travel or pets. No questionable foods. He had a previous positive culture at least once for campylobacter and maybe twice, recall at least one course of azithromycin. No recent higher doses of steroids or injectable
medications.
Since arrival here he has been afebrile, bp stable, wbc 9.8, hgb 11.5, plt 257, no left shift, of note 03/19/23 stool culture campylobacter, again campylobacter 12/12/23; had arthrocentesis of the knee with only 5K wbcs, 83% pmns, no crystals, QTc
428, reports still having intermittent diarrhea and chills. no distension
Past History
Additional Past Medical History:
CAD with h/o prior [place] and multiple stents
History of scleroderma
History of SIBO
History of recurrent pseudo-obstruction
DM2
Essential hypertension
Hyperlipidemia
H/o of cholecystectomy
Benign renal cyst
CKD3a
Past Surgical History: None
Allergy History:
No Known Allergies Allergy (Verified 12/12/23 12:52)
Medications Reviewed: Yes
Social History
Tobacco: Non-Smoker
Alcohol: None
Drug: None
Family History
Family History: Not Pertinent
Review of Systems
Review of Systems
General: Fever and Chills
All systems: All other systems were reviewed and were negative
Vital Signs
Temp Pulse Resp BP Pulse Ox
98.3 F 106 16 109/71 95
12/16/23 07:00 12/16/23 07:00 12/16/23 07:00 12/16/23 07:00 12/16/23 07:00
Physical Exam
Physical Exam
Constitutional: No Acute Distress
Cardiovascular: Regular Rate and S1/S2; Negative Murmur or Rub
Pulmonary: Clear and Symmetric; Negative Wheezes, Rales or Rhonchi
Gastrointestinal: Soft, Non Tender, Non Distended and Normal Bowel Sounds
Skin: Warm and Dry; Negative Rash or Jaundice
Lab / Diagnostic Study Results
12/14/23 05:25
12/16/23 07:26
Abs Immat Gran (auto) 0.0 10^3/uL (0-0.05) 12/12/23 13:42
Absolute Neuts (auto) 7.1 10^3/uL (1.4-6.5) H 12/12/23 13:42
Absolute Lymphs (auto) 1.1 10^3/uL (1.2-3.4) L 12/12/23 13:42
Absolute Monos (auto) 1.4 10^3/uL (0.1-0.6) H 12/12/23 13:42
Absolute Basos (auto) 0.1 10^3/uL (0-0.2) 12/12/23 13:42
Immature Gran % 0.2 % (0-0.5) 12/12/23 13:42
Neutrophils % 72.3 % (42.2-75.2) 12/12/23 13:42
Lymphocytes % 11.3 % (20.5-51.1) L 12/12/23 13:42
Monocytes % 14.3 % (1.7-9.3) H 12/12/23 13:42
Eosinophils % 1.4 % (0-6) 12/12/23 13:42
Basophils % 0.5 % (0-2) 12/12/23 13:42
Microbiology Results
Micro:
12/14/23 18:30 Body Fluid Culture - Preliminary
Synovial Fluid No Growth After 48 Hours
Gram Stain - Preliminary
12/12/23 16:07 Salmonella/Shigella Culture - Final
Feces/Stool No Salmonella, Shigella, Aeromonas or Plesiomonas species
isolated.
Campylobacter Culture - Final
Campylobacter species
Shiga Toxin Test - Final
No E. coli Shiga Toxin 1 or 2 detected.
12/13/23 17:49 - Preliminary
Feces/Stool Culture in Progress
12/13/23 17:48 Cryptosporidium/Giardia - Final
Feces/Stool Negative for Cryptosporidium and/or Giardia Lamblia
antigens.
- Final
Negative for Norovirus GI and GII.
12/12/23 20:34 Stool Leukocytes - Final
Feces/Stool
12/12/23 16:07 C. difficile GDH Antigen & Toxins - Final
Feces/Stool Negative for toxigenic C.difficile
Assessment / Plan
Recurrent Campylobacter vs Reinfection
SIBO
- obtain blood cultures x2
- EKG to reassess qtc
- plan ciprofloxacin 500 mg PO BID x10 days
- hold atorvastatin while on cipro
- follow up with GI - can restart rifaxamin after completion of cipro or may be able to maintain on ciprofloxacin for a period of time, SIBO typically treated with cycling antibiotics
- red flags reviewed and he will call me for follow up in any concerns
Care Review
Plan reviewed with: Physician (Dr Ramirez - azt vs cipro)
[2023-12-16] MEDS: TORADOL IV (13:03)
[2023-12-16] MEDS: NOVOLOG FLEXPEN-LOW RESISTANCE 1 UNITS SC (13:03)
--- NOTE | 2023-12-16 14:42 | W.DS.TRANS ---
DC Summary - [employer]
-
Discharge Instructions:
Discharge Diagnosis/Procedures Campylobacter related to infection. Right knee
possible pseudogout
Diet Low Residue
Additional Diets Low residue for a week and resume regular diet
Activity As tolerated
Driving Restrictions As prior to admission
Bathing Restrictions None
Instructions:
Stand-Alone Forms:
Changes to Home Medications: Yes
Discharge Medications:
DC Medications w/original date entered in [employer]
losartan 50 mg tablet 50 mg PO HS Blood pressure 06/19/20
aspirin 81 mg tablet,delayed release 81 mg PO HS Blood clot prevention/tx 06/28/20
atorvastatin 80 mg tablet 80 mg PO DAILY High cholesterol 06/28/20
nifedipine 30 mg tablet,extended release 30 mg PO HS Blood pressure 06/28/20
pantoprazole 40 mg tablet,delayed release 40 mg PO DAILY Gastrointestinal issue 06/28/20
glimepiride 2 mg tablet 2 mg PO DAILY Diabetes 02/08/22
prednisone 5 mg tablet 5 mg PO DAILY SCLERODERMA 02/08/22
pyridostigmine bromide 60 mg tablet 30 mg PO BID@0730,1730 Gastrointestinal Issue 03/19/23
acetaminophen 500 mg tablet (Tylenol Extra Strength) 1,000 mg PO DAILYPRN PRN MILD PAIN 12/12/23
prucalopride 2 mg tablet (Motegrity) 2 mg PO HS Constipation 12/12/23
rifaximin 550 mg tablet (Xifaxan) 225 mg PO DAILY Gastrointestinal Issue 12/12/23
ciprofloxacin HCl 500 mg tablet 500 mg PO BID #20 tabs 12/16/23
ibuprofen 400 mg tablet 400 mg PO Q6H PRN Pain #20 tabs 12/16/23
pantoprazole 40 mg tablet,delayed release (Protonix) 40 mg PO DAILY #30 tabs 12/16/23
Home Medication Changes
New medication-ciprofloxacin for 10 days, Protonix while on ibuprofen, ibuprofen
Hold medication-rifaximin while he is on ciprofloxacin
Pending Results: No
--- NOTE | 2023-12-16 15:14 | CM ---
Pt for d/c
Has ride home
Discussed IMM
Plan - home no needs
[2023-12-16 15:53] VITALS: BP 114/55
--- NOTE | 2023-12-16 16:30 | W.DCSUMMARY ---
Discharge Summary
Discharge Data
Date of Admission: 12/12/23
Date of Discharge: 12/16/23
-
Pending Results: No
Hospital Course
Primary diagnosis:
Acute diarrheal illness complicated by dehydration.
Campylobacterial diarheal illness
History of small intestinal bacterial overgrowth
Hx of chronic intestinal pseudoobstruction
history of prior Campylobacter diarrhea.
Acute right knee arthritis suspected pseudogout
Acute kidney injury
Secondary diagnosis:
Back pain with right leg sciatica
Hypertension
Scleroderma
Hospital course:
Patient with SIBO, chronic pseudo obstruction on p.o. segment presented with acute diarrheal illness causing dehydration and FLORENCE. While waiting for diagnostic evaluation to be completed he was increased on his rifaximin dose to regular SIBO
treatment does and his diarrhea was stopped. He had a CT which showed pancolitis. Initial stool cultures came back negative but then Lab called saying his Campylobacter is positive. He had a prior history of that in past as well. This occasion
rifaximin seems to have taken care of the diarrhea and did not recur in 2 days. But in view of recurrent Campylobacter stool infection unclear if this is a recurrent infection or reinfection. ID recommended 10 days of ciprofloxacin treatment and
after that he can go back to his chronic rifaximin dose he takes for SIBO. Blood cultures were drawn which are pending at the time of discharge. His QTc was within the normal limit.
While he was in dehydrated state he had an acute episode of right knee arthritis which clinically sounded like pseudogout. He had a tap of the right knee which showed 5800 white count and mostly polymorphs. Cultures were negative. Crystals also
negative. But it was acting like another episode of pseudogout he had in the past. Did not respond to colchicine but he responded nicely to Toradol. So steroid injections were kept on hold.
Added PPI while he is using Ibuprofen for pseudogout .
Consultants on board:
GI - Jia Persaud
Ortho - Jia Sandoval
ID - Tin Anderson
Discharge Plan
-
Patient Disposition: Home (Routine Discharge)
Discharge Diagnosis/Procedures: Campylobacter related to infection. Right knee possible pseudogout
Diet: Low Residue
Additional Diets: Low residue for a week and resume regular diet
Activity: As tolerated
Driving Restrictions: As prior to admission
Bathing Restrictions: None
Referrals:
Tamara Bell MD [Family Provider] - in less than 1 week
Prescriptions:
New
ciprofloxacin HCl 500 mg Tablet
500 mg PO BID Qty: 20 0RF
ibuprofen 400 mg tablet
400 mg PO Q6H PRN (Reason: Pain) Qty: 20 0RF
pantoprazole [Protonix] 40 mg tablet,delayed release (DR/EC)
40 mg PO DAILY Qty: 30 0RF
Rx Instructions:
while taking ibuprofen
Continued
losartan 50 MG tablet
50 mg PO HS
aspirin 81 MG tablet,delayed release (DR/EC)
81 mg PO HS
atorvastatin 80 MG tablet
80 mg PO DAILY
pantoprazole 40 MG tablet,delayed release (DR/EC)
40 mg PO DAILY
nifedipine 30 MG tablet extended release
30 mg PO HS
prednisone 5 mg Tablet
5 mg PO DAILY
glimepiride 2 mg Tablet
2 mg PO DAILY
pyridostigmine bromide 60 mg tablet
30 mg PO BID@0730,1730
Hold Instructions: Resume on 03/23/23.
acetaminophen [Tylenol Extra Strength] 500 mg Tablet
1,000 mg PO DAILYPRN PRN (Reason: MILD PAIN)
Motegrity 2 mg tablet
2 mg PO HS
Held
Xifaxan 550 mg tablet
225 mg PO DAILY
Hold Instructions: Resume on 12/26/23. resume after finishing ciprofloxacin antibiotic
Discharge Orders:
Discharge Patient (As Directed); Ordered 12/16/23
Ordered By: Milton Ramirez
Discharge Date and Time
Discharge Date/Time: 12/16/23 16:07
Print Language: KOSOVAN
[2023-12-18 02:18] LABS: Lyme Disease DNA by PCR Not Detected; Lyme Source Synovial fluid
== END 2023-12-16 16:07 | disposition home or self-care (01) | DRG 392 ==
LOC: 3 WEST ACU 17:18
PROVIDERS: Emergency Medicine; ADMITTING PHYSICIAN Internal Medicine; CONSULT PHYSICIAN Orthopaedic Surgery; CONSULT PHYSICIAN Student in an Organized Health Care Education/Training Program; EMERGENCY PHYSICIAN Emergency Medicine; FAMILY PHYSICIAN Family Medicine; OTHER PHYSICIAN Internal Medicine
DX: A09 Infectious gastroenteritis and colitis, unspecified (principal); N17.9 Acute kidney failure, unspecified; E86.0 Dehydration; A04.5 Campylobacter enteritis; N18.31 Chronic kidney disease, stage 3a; M54.31 Sciatica, right side; K59.81 Ogilvie syndrome; M17.11 Unilateral primary osteoarthritis, right knee; I12.9 Hypertensive chronic kidney disease with stage 1 through stage 4 chronic kidney disease, or unspecified chronic kidney disease; M34.9 Systemic sclerosis, unspecified; E11.9 Type 2 diabetes mellitus without complications; K21.9 Gastro-esophageal reflux disease without esophagitis; I25.10 Atherosclerotic heart disease of native coronary artery without angina pectoris; K63.8219 Small intestinal bacterial overgrowth, unspecified
CPT/HCPCS: 73560; 74176; 80048; 80053; 82570; 82962; 83036; 83690; 84300; 85025; 85027; 87015; 87040; 87045; 87046; 87070; 87077; 87205; 87324; 87328; 87329; 87427; 87449; 87476; 87798; 89051; 89055; 89060; 93005; 96374; 99284

== ENCOUNTER 2023-12-16 23:38 | Inpatient (IN) | payer OTHER, MEDICARE, SELFPAY ==
[2023-12-16 20:32] VITALS: BP 113/82
[2023-12-16 20:43] VITALS: BP 139/82
[2023-12-16 21:08] VITALS: BP 141/78
[2023-12-16 21:09] LABS: % Basophils 0.4 % (0-2); % Eosinophils 0.3 % (0-6); % Immature Granulocytes 0.6 % (0-0.5); % Lymphocytes 6.8 % (20.5-51.1); % Monocytes 13.6 % (1.7-9.3); % Neutrophils 78.3 % (42.2-75.2); Absolute Basophils 0.1 10^3/uL (0-0.2); Absolute Eosinophils 0.1 10^3/uL (0-0.7); Absolute Immature Granulocytes 0.1 10^3/uL (0-0.05); Absolute Lymphocytes 1.1 10^3/uL (1.2-3.4); Absolute Monocytes 2.2 10^3/uL (0.1-0.6); Absolute Neutrophils 12.6 10^3/uL (1.4-6.5); Hematocrit 39.2 % (39.0-52.0); Hemoglobin 12.9 g/dL (13.0-18.0); Mean Corp Hgb Conc. 32.9 g/dL (33.0-37.0); Mean Corpuscular Hgb 27.4 pg (27.0-31.0); Mean Corpuscular Volume 83.4 fL (80.0-94.0); Nucleated Red Blood Cells % 0 % (-); Platelet Count 418 10^3/uL (130-400); Red Cell Dist. Width 14.7 % (11.5-14.5)
[2023-12-16 21:20] LABS: Lactic Acid 1.5 mmol/L (0.7-2.0)
[2023-12-16 21:22] LABS: ALT (SGPT) 33 U/L (0-50); AST (SGOT) 36 U/L (17-59); Albumin 4.2 g/dl (3.5-5.0); Alkaline Phosphatase 89 U/L (38-126); Blood Urea Nitrogen 35 mg/dl (9-20); Calcium 8.9 mg/dl (8.4-10.2); Carbon Dioxide 19 mmol/L (22-30); Chloride 105 mmol/L (98-107); Glucose 177 mg/dl (70-99); Potassium 4.2 mmol/L (3.5-5.1); Sodium 140 mmol/L (135-145); Total Bilirubin 1.1 mg/dl (0.2-1.3); Total Protein 6.9 g/dl (6.3-8.2); eGFR 32.83
--- NOTE | 2023-12-16 22:53 | ED.GENMED ---
History of Present Illness
General
Chief Complaint: Weakness
Source: patient, records and family
Exam Limitations: none
Time Seen by Provider: 12/16/23 20:51
Nursing documentation reviewed up to this point in time: agreed with
Travel History
Have you had any contact with someone who has COVID-19?: No
Do you have any symptoms of coronavirus? Fever > 100 degrees, chills, cough, shortness of breath, sore throat, loss of taste or smell, muscle aches, or headache?: No
History of Present Illness
History of Present Illness:
73-year-old male with history as documented presents to the emergency room for diarrhea, nausea, vomiting and fatigue. Patient was just admitted to this hospital for dehydration and diarrheal illness. He was found to have Campylobacter in his
stool. He has been on rifaximin for treatment of SIBO, on discharge plan was to transition to short course of ciprofloxacin for Campylobacter. Per chart review and per patient he did not have diarrhea in the past 2 days or so of his admission. He
was given IV fluids. He was discharged around 3 PM today. He says that when he returned home he started having profuse watery nonbloody diarrhea. He says he was on the toilet all day. He says that he started to have nausea and has had 2 episodes
of vomiting. He says he began to feel very weak and dizzy. For this reason his son brought him back to the emergency room. He currently lives alone and his son is very concerned about his ability to care for himself at this point given his acute
illness. Patient denies any chest pain. Denies any shortness of breath. He denies any significant abdominal pain. He does have a low-grade fever here and says he has chills. Denies any urinary issues. Denies other complaints.
Past History
Past History
ED Past Medical History: CAD, GERD, HTN, Hypercholesterolemia, NIDDM, [place] and Other (scleroderma, SBO,)
ED Past Surgical History: Cardiac (Stents X 6) and Cholecystectomy
Social History
Tobacco: Non-smoker
Alcohol: None
Drug: None
Personal:
Living: with family
Family History
Family History: CAD
Review of Systems
Review of Systems
All Other Systems: ROS reviewed and negative except as documented in HPI and ROS
Constitutional: Reports fatigue and chills; Denies fever
EENT: Denies sore throat or runny nose
Respiratory: Denies cough or trouble breathing
Cardiac: Denies chest pain or palpitations
ABD/GI: Reports nausea, vomiting and diarrhea; Denies abdominal pain
: Denies flank pain
Musculoskeletal: Denies neck pain or back pain
Neurological: Reports dizzy and weakness (Generalized); Denies headache or numbness
Phy Exam
Physical Exam
Physical Exam:
General: Awake, alert, oriented x3; frail but no acute distress
Head: Normocephalic, atraumatic
Eyes: Conjunctiva normal, sclera anicteric
Throat: Airway intact, mucous membranes dry
Neck: Trachea midline, supple without meningismus
Lungs: Clear to auscultation bilaterally, no wheezing, rales, rhonchi
Heart: Tachycardia with regular rhythm, no murmurs, gallops, or rubs
Abd: Soft, non distended, nontender to deep palpation
Neuro: Cranial nerves grossly intact, speech fluid
Skin: Dry, no rash
Extremities: Warm and well-perfused
Scores
Heart Failure Risk
Heart Failure Risk Score: Not Applicable
Heart Score for Chest Pain Patients
STEMI patient?: Not applicable
Withdrawal Assessment of Alcohol
Withdrawal Assessment Completed?: Not applicable
Course
Orders/Labs/Results
Orders:
Orders
12/16/23
STOOL [C difficile Antigen & Toxins] Urgent
SEBAS Source: Feces/Stool
Specimen Description:
Date Specimen was Collected: 12/16/23
Time Specimen was Collected: 21:16
Stool Culture Urgent
SEBAS Source: Feces/Stool
Specimen Description:
Date Specimen was Collected: 12/16/23
Time Specimen was Collected: 21:17
12/16/23 20:42
Electrocardiogram (*1) Urgent
Reason for Study: Other
Other Reason for Exam: Possible Sepsis
EKG- Treatment ONCE
12/16/23 20:45
Blood Culture Q30M
SEBAS Source: Blood/Venous
Specimen Description:
Comment: FROM 2 SEPARATE SITES
12/16/23 20:55
Complete Blood Count/With Diff Urgent
Comprehensive Metabolic Panel Urgent
Lactic Acid Q4H
Comment: ON ICE, CANCEL 2ND ORDER IF FIRST LACTIC ACID LEVEL <2
Blood Culture Q30M
SEBAS Source: Blood/Venous
Specimen Description:
Comment: FROM 2 SEPARATE SITES
12/16/23 22:46
0.9% Sodium Chloride 1000 ml [Nss] 1,000 ml IV BOLUS
12/16/23 22:47
Ciprofloxacin HCl [Cipro] 500 mg PO ONCE ONE
12/16/23 22:52
Urinalysis Reflex To Culture Urgent
Acetaminophen [Tylenol] 650 mg PO NOW STA
12/16/23 22:56
Ondansetron Injectable [Zofran] 4 mg IV NOW STA
12/16/23 23:29
Admit/Transfer Patient As Directed
Co-Sign Provider:
Level of Care: Inpatient admission
Assign to:: Medical/Surgical
Physician / Group: Randy
Diagnosis: FLORENCE, Campylobacter diarrhea
Reason for Hospitalization: FLORENCE, Campylobacter diarrhea
Expected length of stay greater than two midnights?: Yes
ELOS- Estimated Length of Stay in days: 3
I certify the patient meets the requirements for IP care: Yes
12/16/23 23:31
Code Status As Directed
Resuscitation Status: Full Code
12/17/23 01:32
0.9% Sodium Chloride 1000 ml [Nss] 1,000 ml IV 150 mls/hr
Acetaminophen [Tylenol] 650 mg PO Q4HPRN PRN
Dextrose 50%-Water [Dextrose 50% Syringe] 12.5 grams IV [id number] PRN
Glucagon [GlucaGen] 1 mg IM PRN PRN
Prochlorperazine [Compazine] 5 mg IV Q6HPRN PRN
12/17/23 01:32
Activity As Directed
Activity Level: Ambulate
With Assistance
Bedside Glucose Monitoring As Directed
Frequency: AC&HS
Additional Instructions:: Change to q6h if pt on TPN, tube feeding or not eating
Bladder Scan As Directed
Follow Bladder Retention/Intermittent Cath Algorithm?: Yes
PRN if no void in __ hours: 6
Frequency: Per Retention Algorithm
If Bladder Scan Result >: 400
then:: Straight cath
I/O [Intake/ Output] As Directed
Frequency: Per unit guidelines
Orthostatic Vital Signs As Directed
Orthostatic VS Frequency: BID
Pneumatic Compression Sleeves As Directed
Type: Knee high
Precautions As Directed
Type of Precautions: Contact
Straight Cath As Directed
Frequency: Per Retention Algorithm
Additional Instructions: straight cath as needed per acute urinary retention algorithm for 24 hrs
Additional Instructions: for bladder scan greater than 400 mL
Vital Signs As Directed
Frequency: Per unit guidelines
Weight As Directed
Frequency: Daily
Oxygen Therapy [O2 Therapy] [RESP] Routine
Titrate/Wean O2 to maintain O2 sat greater than (%): 94
Ot Eval And Treat Routine
PT Consult [Pt Eval And Treat] Routine
Activity Level: Ambulate
With Assistance
DX Deep Vein Thrombosis Video Routine
12/17/23 Breakfast
BRAT
Basic Metabolic Panel IN AM
Complete Blood Count/No Diff IN AM
12/17/23 07:30
Insulin Aspart Corrective Low [Novolog Flexpen-Low Resistance] See Protocol SC AC
Pyridostigmine [Mestinon] 30 mg PO BID@0730,1730
12/17/23 08:00
Ciprofloxacin HCl [Cipro] 500 mg PO BID
Prednisone [Deltasone] 5 mg PO DAILY
12/17/23 22:00
Aspirin Low Dose EC [Aspir Low (Enteric Coated)] 81 mg PO HS
Abnormal Lab Results
12/16/23
20:55
WBC 16.0 H 10^3/uL
(4.8-10.8)
Hgb 12.9 L g/dL
(13.0-18.0)
MCHC 32.9 L g/dL
(33.0-37.0)
RDW 14.7 H %
(11.5-14.5)
Plt Count 418 H D 10^3/uL
(130-400)
Abs Immat Gran (auto) 0.1 H 10^3/uL
(0-0.05)
Absolute Neuts (auto) 12.6 H 10^3/uL
(1.4-6.5)
Absolute Lymphs (auto) 1.1 L 10^3/uL
(1.2-3.4)
Absolute Monos (auto) 2.2 H 10^3/uL
(0.1-0.6)
Immature Gran % 0.6 H %
(0-0.5)
Neutrophils % 78.3 H %
(42.2-75.2)
Lymphocytes % 6.8 L %
(20.5-51.1)
Monocytes % 13.6 H %
(1.7-9.3)
Carbon Dioxide 19 L mmol/L
(22-30)
BUN 35 H mg/dl
(9-20)
Creatinine 2.1 H mg/dL
(0.7-1.3)
Glucose 177 H mg/dl
(70-99)
12/16/23 20:55
12/16/23 20:55
Vital Signs
Initial and Last Documented VS:
Initial Vital Signs
Temp Pulse Resp BP Pulse Ox
38.0 C H 130 22 113/82 97
12/16/23 20:32 12/16/23 20:32 12/16/23 20:32 12/16/23 20:32 12/16/23 20:32
Last Documented Vital Signs
Temp Pulse Resp BP Pulse Ox
38.0 C H 105 22 140/60 95
12/16/23 20:32 12/17/23 01:15 12/16/23 20:32 12/17/23 01:00 12/17/23 01:15
MDM/Problems Addressed
Differential Diagnosis Includes:
Dehydration, electrolyte derangement, sepsis
MDM/Problems Addressed:
73-year-old male with known Campylobacter diarrheal illness and recent admission for diarrhea and dehydration returns shortly after discharge after profuse diarrhea and nausea with 2 episodes of vomiting. Now feeling very weak and dizzy. He
arrives to us tachycardic, tachypneic, febrile. Normotensive. Appropriate oxygen saturation. Appears dehydrated on exam. Plan to place an IV check labs including a CBC and CMP, lactate, blood cultures. Send a urinalysis. Will send stool
studies if able. Check an EKG. Provide IV fluids. Tylenol for fever. Will give initial dose of ciprofloxacin as he has not yet had a dose since discharge. Will treat with Zofran for nausea. Reassess after the above.
Labs reviewed: CBC shows leukocytosis 16. CMP shows creatinine of 2.1 which is significantly increased from discharge value this morning, prerenal in the setting of severe diarrhea and vomiting. Will continue with IV fluids. Will plan to admit
for continued treatment. Discussed with hospitalist for admission.
*Pulse Oximetry
Patient hypoxic: no
*EKG
Interpreted by ED Provider?: Yes
Heart Rate: 115
Rate: tachycardiac
Rhythm: sinus
Clarissa: normal axis
Interval: normal interval
QRS Pattern: normal QRS
Ischemia: no ischemia
*Critical Care Note
Total Time (30-74mins, 75-104mins- exclusive of procedures): Not Applicable
Data Reviewed
Review of Other/Old Records Reveals: Labs and Records
Source: patient, records and family (Son)
Patient Management
Discussion with other providers: Hospitalist (Discussed with hospitalist)
Escalation/DeEscalation of care consider admission/obs:
Admission indicated
ED Attending Note
-
Portions of this chart may have been created with voice recognition software.� Occasional wrong word or��sound alike� substitutions may have occurred due to the inherent limitations of voice recognition software.
Discharge Plan
Departure
Patient Disposition: Admit
Date of Disposition: 12/16/23
Time of Disposition: 22:47
Admit to doctor: Randy
Presentation/result/management discussed w/ accepting MD/DO: Hospitalist
Discharge Problem:
Campylobacter diarrhea, FLORENCE (acute kidney injury), Acute dehydration
Interventions
Interventions:
*General Assessment Last Done: 12/16/23 20:32
*Neglect/Abuse Screening Last Done: 12/16/23 20:32
ED- Fall Risk Assessment Last Done: 12/16/23 20:45
*ED COVID-19 Vaccine History Last Done: 12/16/23 20:46
*Nursing Disposition Last Done: 12/17/23 01:42
ED- Cardiac Assessment Last Done: 12/16/23 20:45
ED- Neurological Assessment Last Done: 12/16/23 20:45
ED- Pulmonary Assessment Last Done: 12/16/23 20:45
Discharge Date and Time
Discharge Date/Time: 12/17/23 01:42
[2023-12-16 23:00] VITALS: BP 131/77
[2023-12-16] MEDS: CIPRO 500 MG PO (23:06)
[2023-12-16] MEDS: NSS 1000 IV (23:06)
[2023-12-16] MEDS: ZOFRAN 4 MG IV (23:07)
[2023-12-16] MEDS: TYLENOL 650 MG PO (23:07)
--- NOTE | 2023-12-16 23:34 | HPS.HSE ---
Family Physician
-
Family Physician: Tamara Bell
Chief Complaint
-
Diarrhea / Weakness
History of Present Illness
Patient is a 73y M with PMH significant for scleroderma, SIBO and recent admission for Campylobacter diarrhea who presents to ED complaining of recurrent diarrhea and weakness. Patient was discharged at 3 PM today. He states that he had had no
loose stools for the past 2 days. Upon return home, patient notes that diarrhea returned. He has since had 8 episodes of large volume, watery, non-bloody diarrhea. He has mild crampy abdominal discomfort. He feels incredibly weak and fatigued
and returned to the ED for re-evaluation.
Patient was found to have Campylobacter during his recent admission. He was prescribed Cipro x 10 days on discharge - but received no doses of this yet.
Medical History
Past Medical History
Past Medical History: Reports Other
Additional Past Medical History:
SIBO
ASCVD
GERD
Hypertension
DM-II
Scleroderma
Past Surgical History: Reports Other
Additional Past Surgical History:
Cardiac stent x6
Cholecystectomy
Social History
Unable to obtain full social history at this time due to: Dementia
Tobacco: Non-smoker
Alcohol: None
Drug: None
Personal:
Family History
Family History: Not pertinent
Allergies / Home Medications
Allergies reflects when Allergies were last updated in [facility].
Home Medications with original date entered in [facility]
Allergy/Medication List:
Allergies
Allergy/AdvReac Type Severity Reaction Status Date / Time
No Known Allergies Allergy Verified 12/16/23 20:32
Home Medications
losartan 50 mg tablet 50 mg PO HS Blood pressure 06/19/20
aspirin 81 mg tablet,delayed release 81 mg PO HS Blood clot prevention/tx 06/28/20
atorvastatin 80 mg tablet 80 mg PO DAILY High cholesterol 06/28/20
nifedipine 30 mg tablet,extended release 30 mg PO HS Blood pressure 06/28/20
pantoprazole 40 mg tablet,delayed release 40 mg PO DAILY Gastrointestinal issue 06/28/20
glimepiride 2 mg tablet 2 mg PO DAILY Diabetes 02/08/22
prednisone 5 mg tablet 5 mg PO DAILY SCLERODERMA 02/08/22
pyridostigmine bromide 60 mg tablet 30 mg PO BID@0730,1730 Gastrointestinal Issue 03/19/23
acetaminophen 500 mg tablet (Tylenol Extra Strength) 1,000 mg PO DAILYPRN PRN MILD PAIN 12/12/23
prucalopride 2 mg tablet (Motegrity) 2 mg PO HS Constipation 12/12/23
rifaximin 550 mg tablet (Xifaxan) 225 mg PO DAILY Gastrointestinal Issue 12/12/23
ciprofloxacin HCl 500 mg tablet 500 mg PO BID #20 tabs 12/16/23
ibuprofen 400 mg tablet 400 mg PO Q6H PRN Pain #20 tabs 12/16/23
pantoprazole 40 mg tablet,delayed release (Protonix) 40 mg PO DAILY #30 tabs 12/16/23
Review of Systems
-
History Source: Patient
A 12 point ROS was completed and negative except as noted: Yes
Constitutional: Reports Fatigue; Denies Fever
EENT: Denies Sore Throat
Respiratory: Denies Cough or Trouble Breathing
Cardiac: Denies Chest Pain or Palpitations
Abdomen/GI: Reports Abdominal Pain and Diarrhea; Denies Nausea, Vomiting or Bloody Stools
: Denies Dysuria, Frequency or Flank Pain
Neurological: Reports Dizzy and Weakness; Denies Headache
Psych: Denies Depression or Anxiety
Physical Exam
Vital Signs
Vital Signs
Temp Pulse Resp BP Pulse Ox
100.4 F H 112 22 141/78 94
12/16/23 20:32 12/16/23 22:45 12/16/23 20:32 12/16/23 21:08 12/16/23 22:45
Physical Exam
General: Other (Ill-appearing 73y M in mild distress due to fatigue / diarrhea.)
HEENT: Other (Dry MM.)
Respiratory: Clear; No Wheezes, Rales or Rhonchi
Cardiac: S1/S2 and Regular Rhythm
GI: Soft, Non Tender, Non Distended and Normal Bowel Sounds
Musculoskeletal: No Clubbing, No Cyanosis and No Edema
Neuro: AO x 3
Laboratory Results
-
12/16/23 20:55
12/16/23 20:55
Laboratory Results
Lactic Acid 1.5 mmol/L (0.7-2.0) 12/16/23 20:55
Total Bilirubin 1.1 mg/dl (0.2-1.3) 12/16/23 20:55
AST 36 U/L (17-59) 12/16/23 20:55
ALT 33 U/L (0-50) 12/16/23 20:55
Alkaline Phosphatase 89 U/L (38-126) 12/16/23 20:55
Impression/Plan
-
A/P: Patient is a 73y M with PMH significant for ASCVD, DM-II and recent admission for Campylobacter diarrhea returns to ED complaining of recurrent diarrhea / fatigue.
Campylobacter infection
Profuse Diarrhea secondary to the above
- Admit for further evaluation and treatment.
- Begin Cipro as planned on recent discharge.
- Supportive care including IVFs, etc.
- Hold atorvastatin and rifaxamin while on Cipro.
- Follow for clinical improvement.
[place]
- SCr = 2.1 compared to 1.2 this AM.
- Significant volume losses due to diarrhea.
- IVF support, treat GI distress as noted above, follow for return to baseline renal function.
ASCVD
- Stable. Continue ASA.
DM-II
- Stable. Hold PO medications.
- Follow glucose and cover with SSI as needed.
- A1C on recent admission was 6.6%.
Benign Hypertension
- Stable. Hold PO meds for now given volume losses, etc.
- Follow for changes and resume usual meds if / when appropriate.
Scleroderma
- Stable. On chronic prednisone - continue.
SIBO
- Maintained on Xifaxan. Holding for now while on Cipro.
- Follow-up with GI as outpatient.
- Resume Xifaxan once Cipro course is completed.
DVT Prophylaxis: SCDs
Code Status: Full
[2023-12-17] VITALS (10 sets, daily range): BP systolic 125–147; BP diastolic 60–91; PULSE 83–102; BMI 20.6
[2023-12-17] MEDS: NSS 1000 IV ×4 (01:51→22:31)
[2023-12-17] MEDS: COMPAZINE 5 MG IV ×2 (01:52→08:28)
[2023-12-17 06:21] LABS: Hematocrit 38.8 % (39.0-52.0); Hemoglobin 12.7 g/dL (13.0-18.0); Mean Corp Hgb Conc. 32.7 g/dL (33.0-37.0); Mean Corpuscular Hgb 27.5 pg (27.0-31.0); Mean Corpuscular Volume 84.2 fL (80.0-94.0); Mean Platelet Volume 9.2 fL (7.4-10.4); Platelet Count 351 10^3/uL (130-400); Red Blood Cell Count 4.61 10^6/uL (4.70-6.10); White Blood Cell Count 13.4 10^3/uL (4.8-10.8)
[2023-12-17 06:58] LABS: Blood Urea Nitrogen 38 mg/dl (9-20); Calcium 8.2 mg/dl (8.4-10.2); Carbon Dioxide 16 mmol/L (22-30); Chloride 110 mmol/L (98-107); Estimated Creatinine Clearance 33 ml/min; Glucose 157 mg/dl (70-99); Potassium 4.3 mmol/L (3.5-5.1); Sodium 142 mmol/L (135-145); eGFR 37.02
[2023-12-17] MEDS: DELTASONE 5 MG PO (08:28)
[2023-12-17] MEDS: CIPRO 500 MG PO ×2 (08:28→20:40)
[2023-12-17 08:38] LABS: Glucose - Point of Care 122 mg/dl (70-99)
--- NOTE | 2023-12-17 10:07 | W.PN.HOSP.TC ---
Today's Communication/Plan
-
Continue with IV fluids
Consult ID
Assessment / Plan
Assessment / Plan
A/P: Patient is a 73y M with PMH significant for ASCVD, DM-II and recent admission for Campylobacter diarrhea returns to ED complaining of recurrent diarrhea / fatigue.
Campylobacter infection
Profuse Diarrhea secondary to the above
- Resumed on Cipro as planned on recent discharge.
- Supportive care including IVFs, etc.
- Hold atorvastatin and rifaxamin while on Cipro.
- Hold Pyridostigmine
- Follow for clinical improvement.
Hx of SIBO on low dose Rifaxamin
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
Hx of prior Campylobacter
[place]
- SCr = 2.1 compared to 1.2 this AM.Improving 1.9 today
- Significant volume losses due to diarrhea.
- cw IVF support, treat GI distress as noted above, follow for return to baseline renal function.
acute right knee possible pseudogout during recent admission-currently asymptomatic. Continue with Tylenol but if he needs treatments if it reoccurs then he needs intra-articular steroid injection.
ASCVD
- Stable. Continue ASA.
DM-II
- Stable. Hold PO medications.
- Follow glucose and cover with SSI as needed.
- A1C on recent admission was 6.6%.
Benign Hypertension
- Stable. Hold PO meds for now given volume losses, etc.
- Follow for changes and resume usual meds if / when appropriate.
Scleroderma
- Stable. On chronic prednisone - continue.
DVT Prophylaxis: SCDs
Code Status: Full
Anticipated Discharge: 24 - 48 hours
Subjective/Interval History
-
Date of Service: December 17, 2023
Patient returned back within few hours of discharge with recurrence of diarrhea.
he was feeling chills but no fevers.
He had Rifaximin dose before discharge. After discharge did not take yet ciprofloxacin which was prescribed. He also states he did not go back on Pyridostigmine treatment.
Objective Data
-
Labs:
Laboratory Results
12/17/23
05:55
WBC 13.4 H
Hgb 12.7 L
Hct 38.8 L
Plt Count 351
Sodium 142
Potassium 4.3
Chloride 110 H
Carbon Dioxide 16 L
BUN 38 H
Creatinine 1.9 H
Glucose 157 H
Calcium 8.2 L
Vital Signs:
Vital Signs
Temp Pulse Resp BP Pulse Ox
97.5 F 98 18 147/76 94
12/17/23 08:53 12/17/23 08:53 12/17/23 08:53 12/17/23 08:53 12/17/23 08:53
I&O
12/16/23 12/17/23 12/18/23
06:59 06:59 06:59
Intake Total 990 / 990
Balance 990 / 990
Review of Systems
-
Constitutional: Reports Chills and Weakness; Denies Fever
EENT: Denies Sore Throat
Respiratory: Denies Cough or Trouble Breathing
Cardiac: Denies Chest Pain
Abdomen/GI: Reports Nausea and Diarrhea; Denies Abdominal Pain or Vomiting
Neuro: Denies Dizzy
Physical Exam
-
General: No Apparent Distress
HEENT: Moist Mucous Membranes
Respiratory: Clear to Auscultation
Cardiac: Regular Rhythm, S1/S2 and Tachycardic
GI: Soft, Nondistended and Normal Bowel Sounds; Negative Tender (vague discomfort in all quadrants )
Neuro: AO x 3
Psych: Calm
Data Reviewed
-
Labs: Labs Reviewed by me
[2023-12-17 12:25] LABS: Glucose - Point of Care 148 mg/dl (70-99)
--- NOTE | 2023-12-17 13:15 | W.PN.ID1 ---
Date of Service
Date of Service: December 17, 2023
Today's Communication
continue ciprofloxacin, follow clinically
Assessment / Plan
Recurrent Campylobacter vs Reinfection
SIBO
[place] - improving
- obtain blood cultures x2
- QTc has been acceptable
- agree with holding pyridiostigmine for the moment
- plan ciprofloxacin 500 mg PO BID x10 days
- hold atorvastatin, rifaxamin while on cipro
- can restart rifaxamin after completion of cipro or may be able to maintain on ciprofloxacin for a period of time, SIBO typically treated with cycling antibiotics
Chief Complaint
-: Other (diarrhea campylobacter)
Subjective / Review of Systems
had a large volume stool at home and was readmitted
he had not picked up the ciprofloxacin yet
Tmax 100.4
bp stable
on arrival wbc 16 now 13
hgb 12.7
plt were 418 now 351
cr pm dc was 1.1 then 2.1 now 1.9
lactic acid 1.5
no abdominal pain today
Vital Signs / Physical Exam
Vital Signs
Vital Signs
Temp Pulse Resp BP Pulse Ox
97.5 F 98 18 147/76 94
12/17/23 08:53 12/17/23 08:53 12/17/23 08:53 12/17/23 08:53 12/17/23 08:53
Physical Exam
Constitutional: No Acute Distress and Chronically Ill
Cardiovascular: Regular Rate and S1/S2; Negative Murmur or Rub
Pulmonary: Clear and Symmetric; Negative Wheezes or Rales
Gastrointestinal: Soft, Non Tender, Distended (mildly) and Normal Bowel Sounds
Skin: Warm and Dry; Negative Rash or Jaundice
Objective Data
Lab Data
Lab Results
12/17/23 05:55
12/17/23 05:55
Estimated Creat Clear 33 ml/min 12/17/23 05:55
Lactic Acid Cancelled 12/17/23 00:45
Total Bilirubin 1.1 mg/dl (0.2-1.3) 12/16/23 20:55
AST 36 U/L (17-59) 12/16/23 20:55
ALT 33 U/L (0-50) 12/16/23 20:55
Alkaline Phosphatase 89 U/L (38-126) 12/16/23 20:55
Most recent labs reviewed.
Micro Results:
12/16/23 Unknown C. difficile GDH Antigen & Toxins - Final
Feces/Stool Negative for toxigenic C.difficile
12/16/23 20:55 Blood Culture - Pending
Blood/Venous
12/16/23 Unknown Salmonella/Shigella Culture - Pending
Feces/Stool Campylobacter Culture - Pending
Shiga Toxin Test - Pending
12/16/23 20:55 Blood Culture - Pending
Blood/Venous
--- NOTE | 2023-12-17 15:03 | CM ---
Reviewed the chart notes and spoke with the patient at the bedside. The patient resides alone in a two story home with no steps to enter. The patient reports no DME/VN/SNF in the past. The patient confirmed his pharmacy of choice is the [facility] [address] [place]. CM continues to be available to patient/family and is monitoring medical plan for needs at discharge.
Plan: Discharge plans will depend on the patient's progress.
[2023-12-17] MEDS: MYLICON 80 MG PO (16:05)
[2023-12-17 17:26] LABS: Glucose - Point of Care 139 mg/dl (70-99)
[2023-12-17 19:47] LABS: Urine Albumin Trace (Neg - Trace); Urine Bilirubin Negative (Negative); Urine Character Clear (Clear); Urine Color Yellow; Urine Glucose Negative (Negative); Urine Ketone Negative (Negative); Urine Leukocyte Negative (Negative); Urine Nitrite Negative (Negative); Urine Occult Blood Negative (Negative); Urine Urobilinogen Negative (Neg - 1+)
[2023-12-17] MEDS: ASPIR LOW (ENTERIC COATED) 81 MG PO (20:40)
[2023-12-17 22:10] LABS: Glucose - Point of Care 141 mg/dl (70-99)
[2023-12-18] MEDS: TYLENOL 650 MG PO (00:52)
[2023-12-18] MEDS: NSS 1000 IV (05:27)
[2023-12-18 06:00] VITALS: BMI 21.6
[2023-12-18 06:20] LABS: Hematocrit 27.3 % (39.0-52.0); Mean Corpuscular Hgb 27.4 pg (27.0-31.0); Mean Platelet Volume 9.1 fL (7.4-10.4); Platelet Count 262 10^3/uL (130-400); Red Blood Cell Count 3.29 10^6/uL (4.70-6.10); Red Cell Dist. Width 15.1 % (11.5-14.5); White Blood Cell Count 8.2 10^3/uL (4.8-10.8)
[2023-12-18 07:00] LABS: Blood Urea Nitrogen 25 mg/dl (9-20); Calcium 7.4 mg/dl (8.4-10.2); Carbon Dioxide 17 mmol/L (22-30); Chloride 115 mmol/L (98-107); Estimated Creatinine Clearance 55 ml/min; Glucose 97 mg/dl (70-99); Potassium 3.9 mmol/L (3.5-5.1); Sodium 141 mmol/L (135-145); eGFR > 60.00
[2023-12-18 07:40] VITALS: BP 142/75
[2023-12-18 08:07] LABS: Glucose - Point of Care 107 mg/dl (70-99)
[2023-12-18] MEDS: DELTASONE 5 MG PO (08:34)
[2023-12-18] MEDS: ULTRAM 50 MG PO (08:34)
[2023-12-18] MEDS: CIPRO 500 MG PO (08:34)
--- NOTE | 2023-12-18 10:59 | W.PN.ID1 ---
Date of Service
Date of Service: December 18, 2023
Today's Communication
- plan ciprofloxacin 500 mg PO BID x10 days
- hold atorvastatin, rifaxamin while on cipro
- can restart rifaxamin after completion of cipro or may be able to maintain on ciprofloxacin for a period of time, SIBO typically treated with cycling antibiotics
Assessment / Plan
Campylobacter - Chronic Carriage vs Reinfection
SIBO
Leukocytosis - resolved
[place] - improving
- blood cultures no growth to date
- QTc has been acceptable
- plan ciprofloxacin 500 mg PO BID x10 days
- hold atorvastatin, rifaxamin while on cipro
- can restart rifaxamin after completion of cipro or may be able to maintain on ciprofloxacin for a period of time, SIBO typically treated with cycling antibiotics
Chief Complaint
-: Other (diarrhea campylobacter)
Subjective / Review of Systems
afebrile
bp stable
leukocytosis resolved
cr further improved
repeat stool testing 12/15 pending
still vs loose/liquid bowel movements
'I feel a lot better'
Vital Signs / Physical Exam
Vital Signs
Vital Signs
Temp Pulse Resp BP Pulse Ox
97.2 F 72 16 142/75 100
12/18/23 07:40 12/18/23 07:40 12/18/23 07:40 12/18/23 07:40 12/18/23 07:40
Physical Exam
Constitutional: No Acute Distress
Cardiovascular: Regular Rate and S1/S2; Negative Murmur or Rub
Pulmonary: Clear and Symmetric; Negative Wheezes or Rales
Gastrointestinal: Soft, Non Tender, Non Distended and Normal Bowel Sounds
Skin: Warm and Dry; Negative Rash or Jaundice
Objective Data
Lab Data
Lab Results
12/18/23 05:43
12/18/23 05:43
Estimated Creat Clear 55 ml/min 12/18/23 05:43
Lactic Acid Cancelled 12/17/23 00:45
Total Bilirubin 1.1 mg/dl (0.2-1.3) 12/16/23 20:55
AST 36 U/L (17-59) 12/16/23 20:55
ALT 33 U/L (0-50) 12/16/23 20:55
Alkaline Phosphatase 89 U/L (38-126) 12/16/23 20:55
Most recent labs reviewed.
Micro Results:
12/16/23 20:55 Blood Culture - Preliminary
Blood/Venous No Growth in 24 hours- Final report to follow
12/16/23 20:55 Blood Culture - Preliminary
Blood/Venous No Growth in 24 hours- Final report to follow
12/16/23 Unknown C. difficile GDH Antigen & Toxins - Final
Feces/Stool Negative for toxigenic C.difficile
12/16/23 Unknown Salmonella/Shigella Culture - Pending
Feces/Stool Campylobacter Culture - Pending
Shiga Toxin Test - Pending
--- NOTE | 2023-12-18 12:03 | W.PN.HOSP.TC ---
Today's Communication/Plan
-
DC
Assessment / Plan
Assessment / Plan
A/P: Patient is a 73y M with PMH significant for ASCVD, DM-II and recent admission for Campylobacter diarrhea returns to ED complaining of recurrent diarrhea / fatigue.
Campylobacter infection
Profuse Diarrhea secondary to the above
- Resumed on Cipro as planned on recent discharge.
- Resolving diarrhea
- Hold atorvastatin and rifaxamin while on Cipro.
- Hold Pyridostigmine
Hx of SIBO on low dose Rifaxamin
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
Hx of prior Campylobacter
[place]
- SCr = 2.1 compared to 1.2 this AM.Improving 1.2 today
- Significant volume losses due to diarrhea.
- DC further IV fluids
Anemia -drop in HH noted -suspect sec to dilution. No external bleeding
acute right knee possible pseudogout during recent admission-currently asymptomatic. Continue with Tylenol but if he needs treatments if it reoccurs then he needs intra-articular steroid injection.
ASCVD
- Stable. Continue ASA.
DM-II
- Stable. cw PO medications on dc.
- Follow glucose and cover with SSI as needed.
- A1C on recent admission was 6.6%.
Benign Hypertension
- Stable. cw PO meds on dc
Scleroderma
- Stable. On chronic prednisone - continue.
DVT Prophylaxis: SCDs
Code Status: Full
DC home once he tolerates his lunch
Anticipated Discharge: Today
Subjective/Interval History
-
Date of Service: December 18, 2023
much improved frequency of stools. Also more formed. No nausea vomiting. Tolerating diet. No fever or chills.
Patient has intermittent toe tingling numbness for many months; happens intermittently. Helped by tramadol. Does not take any chronic medication as it is intermittent. He was told it may be neuropathy.
Objective Data
-
Labs:
Laboratory Results
12/18/23
05:43
WBC 8.2
Hgb 9.0 L D
Hct 27.3 L
Plt Count 262 D
Sodium 141
Potassium 3.9
Chloride 115 H
Carbon Dioxide 17 L
BUN 25 H
Creatinine 1.2
Glucose 97
Calcium 7.4 L
Vital Signs:
Vital Signs
Temp Pulse Resp BP Pulse Ox
97.2 F 72 16 142/75 100
12/18/23 07:40 12/18/23 07:40 12/18/23 07:40 12/18/23 07:40 12/18/23 07:40
I&O
12/17/23 12/18/23 12/19/23
06:59 06:59 06:59
Intake Total 990 / 990 3120 / 3120
Output Total 200 / 200
Balance 990 / 990 2920 / 2920
Review of Systems
-
Constitutional: Denies Fever
Respiratory: Denies Trouble Breathing
Cardiac: Denies Chest Pain
Neuro: Denies Dizzy
Physical Exam
-
General: No Apparent Distress
HEENT: Moist Mucous Membranes
Respiratory: Clear to Auscultation
Cardiac: Regular Rhythm and S1/S2
GI: Soft and Nontender
Neuro: AO x 3
Data Reviewed
-
Labs: Labs Reviewed by me
--- NOTE | 2023-12-18 12:14 | W.DS.TRANS ---
DC Summary - [employer]
-
Discharge Instructions:
Discharge Diagnosis/Procedures Campylobacter diarrheal illness;SIBO
Additional Diets Low lactose diet for a week
Activity As tolerated
Driving Restrictions As prior to admission
Bathing Restrictions None
Instructions:
Stand-Alone Forms:
Changes to Home Medications: No
Discharge Medications:
DC Medications w/original date entered in [employer]
losartan 50 mg tablet 50 mg PO HS Blood pressure 06/19/20
aspirin 81 mg tablet,delayed release 81 mg PO HS Blood clot prevention/tx 06/28/20
atorvastatin 80 mg tablet 80 mg PO DAILY High cholesterol 06/28/20
nifedipine 30 mg tablet,extended release 30 mg PO HS Blood pressure 06/28/20
glimepiride 2 mg tablet 2 mg PO DAILY Diabetes 02/08/22
prednisone 5 mg tablet 5 mg PO DAILY SCLERODERMA 02/08/22
pyridostigmine bromide 60 mg tablet 30 mg PO BID@0730,1730 Gastrointestinal Issue 03/19/23
acetaminophen 500 mg tablet (Tylenol Extra Strength) 1,000 mg PO DAILYPRN PRN MILD PAIN 12/12/23
prucalopride 2 mg tablet (Motegrity) 2 mg PO HS Constipation 12/12/23
rifaximin 550 mg tablet (Xifaxan) 225 mg PO DAILY Gastrointestinal Issue 12/12/23
ciprofloxacin HCl 500 mg tablet 500 mg PO BID #20 tabs 12/18/23
pantoprazole 40 mg tablet,delayed release (Protonix) 40 mg PO DAILY #1 tab 12/18/23
Home Medication Changes
Pending Results: No
[2023-12-18 12:31] LABS: Glucose - Point of Care 159 mg/dl (70-99)
[2023-12-18 12:35] VITALS: BP 146/82
--- NOTE | 2023-12-18 13:49 | CM ---
Reviewed the chart notes. Patient discharged to home today with no needs identified. Patient's son provided transportation.
== END 2023-12-18 13:25 | disposition home or self-care (01) | DRG 372 ==
LOC: 2 NORTH 23:38
PROVIDERS: ADMITTING PHYSICIAN Hospitalist; ATTENDING PHYSICIAN Internal Medicine; EMERGENCY PHYSICIAN Emergency Medicine; FAMILY PHYSICIAN Family Medicine
DX: A04.5 Campylobacter enteritis (principal); N17.9 Acute kidney failure, unspecified; K63.8219 Small intestinal bacterial overgrowth, unspecified; I25.10 Atherosclerotic heart disease of native coronary artery without angina pectoris; E11.9 Type 2 diabetes mellitus without complications; I10 Essential (primary) hypertension; M34.9 Systemic sclerosis, unspecified; Z79.52 Long term (current) use of systemic steroids; F03.90 Unspecified dementia, unspecified severity, without behavioral disturbance, psychotic disturbance, mood disturbance, and anxiety
CPT/HCPCS: 80048; 80053; 81003; 82962; 83605; 85025; 85027; 87040; 87045; 87046; 87324; 87427; 87449; 93005; 96361; 96374; 97162; 97166; 99285

== ENCOUNTER 2024-02-28 22:22 | Inpatient (IN) | payer OTHER, MEDICARE, SELFPAY ==
[2024-02-28 17:18] VITALS: BMI 22.8
[2024-02-28 17:20] VITALS: BP 147/88
[2024-02-28] MEDS: ZOFRAN ODT (ORALLY DISINTEGRATING) 4 MG PO (17:29)
[2024-02-28 18:02] LABS: % Basophils 0.3 % (0-2); % Eosinophils 3.6 % (0-6); % Immature Granulocytes 0.4 % (0-0.5); % Lymphocytes 9.7 % (20.5-51.1); % Monocytes 10.7 % (1.7-9.3); % Neutrophils 75.3 % (42.2-75.2); Absolute Basophils 0.1 10^3/uL (0-0.2); Absolute Eosinophils 0.7 10^3/uL (0-0.7); Absolute Immature Granulocytes 0.1 10^3/uL (0-0.05); Absolute Lymphocytes 1.8 10^3/uL (1.2-3.4); Hematocrit 37.2 % (39.0-52.0); Hemoglobin 12.4 g/dL (13.0-18.0); Mean Corp Hgb Conc. 33.3 g/dL (33.0-37.0); Mean Corpuscular Hgb 27.1 pg (27.0-31.0); Mean Corpuscular Volume 81.2 fL (80.0-94.0); Nucleated Red Blood Cells % 0 % (-); Platelet Count 433 10^3/uL (130-400); Red Blood Cell Count 4.58 10^6/uL (4.70-6.10); Red Cell Dist. Width 16.2 % (11.5-14.5); White Blood Cell Count 18.6 10^3/uL (4.8-10.8)
[2024-02-28 18:04] LABS: ALT (SGPT) 17 U/L (0-50); AST (SGOT) 23 U/L (17-59); Albumin 4.9 g/dl (3.5-5.0); Alkaline Phosphatase 100 U/L (38-126); Blood Urea Nitrogen 30 mg/dl (9-20); Calcium 9.8 mg/dl (8.4-10.2); Carbon Dioxide 26 mmol/L (22-30); Chloride 108 mmol/L (98-107); Estimated Creatinine Clearance 53 ml/min; Glucose 198 mg/dl (70-99); Lipase 130 U/L (23-300); Potassium 4.1 mmol/L (3.5-5.1); Sodium 145 mmol/L (135-145); Total Bilirubin 1.1 mg/dl (0.2-1.3); Total Protein 7.6 g/dl (6.3-8.2); eGFR 58.01
[2024-02-28 18:07] VITALS: BP 149/74
[2024-02-28 19:00] VITALS: BP 158/88
--- NOTE | 2024-02-28 19:13 | ED.GENMED ---
History of Present Illness
General
Chief Complaint: Abdominal Symptoms
Source: patient
Exam Limitations: none
Time Seen by Provider: 02/28/24 18:57
Nursing documentation reviewed up to this point in time: agreed with
History of Present Illness
History of Present Illness:
74-year-old male presents for nausea vomiting diarrhea vomiting more than 10 times not tolerating anything by mouth feels fatigued he felt like he was going to pass out, no chest pain or shortness of breath no abdominal pain no blood in his vomit or
stool, has had this previously, says gallbladder removed but no other abdominal surgery suffers from scleroderma does not drink or smoke yes
Prior records reviewed was admitted few months ago with Campylobacter infection fatigue looks like he is diabetic so on steroids, patient tells me he finishes Cipro but is on rifaximin chronically is also on prednisone chronically did not have his
today yet
Past History
Past History
ED Past Medical History: CAD, GERD, HTN, Hypercholesterolemia, NIDDM, PR and Other (scleroderma, SBO,)
ED Past Surgical History: Cardiac (Stents X 6) and Cholecystectomy
Social History
Tobacco: Non-smoker
Alcohol: None
Drug: None
Personal:
Living: with family
Employment: Retired
Family History
Family History: CAD
Review of Systems
Review of Systems
All Other Systems: Not applicable
Constitutional: Reports fatigue; Denies fever
EENT: Reports no symptoms
Respiratory: Reports no symptoms
Cardiac: Reports syncope; Denies chest pain or palpitations
ABD/GI: Reports nausea, vomiting, diarrhea and constipated; Denies abdominal pain, bloody stools or black stools
: Reports no symptoms
Musculoskeletal: Reports no symptoms
Neurological: Reports dizzy and weakness
Endocrine: Reports no symptoms
Hematologic/Lymphatic: Reports no symptoms
Phy Exam
Physical Exam
Physical Exam:
Physical Exam
General: 74 male looks uncomfortable
Neck: Dry lips
Heart: s1/s2 regular rate and rhythm, no murmur. equal radial pulses.
Lungs: no acute respiratory distress. clear bilaterally
Abdomen: Soft not tender
Neuro: alert and oriented. no focal neurological deficits
Skin: no rash
Psychiatric: well kept. interactive and cooperative
Extremities: no edema.
Course
Orders/Labs/Results
Orders:
Orders
02/28/24 17:24
IV Insert/Care/Rem.- Treatment PRN
02/28/24 17:27
Ondansetron Orally Disint [Zofran Odt (Orally Disintegrating)] 4 mg .ROUTE .STK-MED ONE
02/28/24 17:28
Ondansetron Orally Disint [Zofran Odt (Orally Disintegrating)] 4 mg PO NOW STA
02/28/24 17:36
Complete Blood Count/With Diff Urgent
Comprehensive Metabolic Panel Urgent
Cortisol, Random Urgent
Comment: ADD ON
Lipase Urgent
02/28/24 19:08
Pantoprazole [Protonix IV] 40 mg IV NOW STA
02/28/24 19:09
0.9% Sodium Chloride 1000 ml [Nss] 2,000 ml IV BOLUS
02/28/24 19:16
STOOL [C difficile Antigen & Toxins] Urgent
SEBAS Source: Feces/Stool
Specimen Description:
Stool Culture Urgent
SEBAS Source: Feces/Stool
Specimen Description:
02/28/24 19:20
Add On- LAB Urgent
Tests Added?: cortisol
02/28/24 19:21
Electrocardiogram (*1) Urgent
Reason for Study: Syncope
EKG- Treatment ONCE
02/28/24 20:00
COVID-19 Antigen Urgent
Source: Nasal Swab
02/28/24 20:49
Promethazine [Phenergan] 25 mg 0.9% Sodium Chloride 50 ml [Nss] 50 ml IV NOW
02/28/24 20:59
Ondansetron Injectable [Zofran] 4 mg IV NOW STA
02/28/24 21:01
Hydrocortisone Sod Succinate [Solu-Cortef] 50 mg IV NOW STA
Abnormal Lab Results
02/28/24
17:36
WBC 18.6 H 10^3/uL
(4.8-10.8)
RBC 4.58 L 10^6/uL
(4.70-6.10)
Hgb 12.4 L g/dL
(13.0-18.0)
Hct 37.2 L %
(39.0-52.0)
RDW 16.2 H %
(11.5-14.5)
Plt Count 433 H 10^3/uL
(130-400)
Abs Immat Gran (auto) 0.1 H 10^3/uL
(0-0.05)
Absolute Neuts (auto) 14.0 H 10^3/uL
(1.4-6.5)
Absolute Monos (auto) 2.0 H 10^3/uL
(0.1-0.6)
Neutrophils % 75.3 H %
(42.2-75.2)
Lymphocytes % 9.7 L %
(20.5-51.1)
Monocytes % 10.7 H %
(1.7-9.3)
Chloride 108 H mmol/L
(98-107)
BUN 30 H mg/dl
(9-20)
Glucose 198 H mg/dl
(70-99)
02/28/24 17:36
02/28/24 17:36
Vital Signs
Initial and Last Documented VS:
Initial Vital Signs
Temp Pulse Resp BP Pulse Ox
97.6 F 125 28 147/88 92
02/28/24 17:20 02/28/24 17:20 02/28/24 17:20 02/28/24 17:20 02/28/24 17:20
Last Documented Vital Signs
Temp Pulse Resp BP Pulse Ox
98.1 F 108 13 149/74 98
02/28/24 18:00 02/28/24 18:07 02/28/24 18:07 02/28/24 18:07 02/28/24 18:07
*Critical Care Note
Total Time (30-74mins, 75-104mins- exclusive of procedures): 15
Update Note
Update Note:
Update 9 PM patient still feeling nauseous, has not had a steroids today, will give IV hydrocortisone as he takes prednisone at home continue saline hydration antiemetics low threshold to admit
ED Attending Note
-
Portions of this chart may have been created with voice recognition software.� Occasional wrong word or��sound alike� substitutions may have occurred due to the inherent limitations of voice recognition software.
Discharge Plan
Departure
Patient Disposition: Admit
Date of Disposition: 02/28/24
Time of Disposition: 21:03
Admit to: Med/Surg
Presentation/result/management discussed w/ accepting MD/DO: Hospitalist
Patient with high blood pressure during this ER visit?: No
Condition: Fair
Covid-19: Negative COVID-19
Discharge Problem:
Scleroderma, GERD (gastroesophageal reflux disease), Dehydration, Diarrhea, Small intestinal bacterial overgrowth (SIBO), Acute dehydration
Prescriptions:
No Action
losartan 50 MG tablet
50 mg PO HS
aspirin 81 MG tablet,delayed release (DR/EC)
81 mg PO HS
atorvastatin 80 MG tablet
80 mg PO DAILY
nifedipine 30 MG tablet extended release
30 mg PO HS
prednisone 5 mg Tablet
5 mg PO DAILY
glimepiride 2 mg Tablet
2 mg PO DAILY
pyridostigmine bromide 60 mg tablet
30 mg PO BID@0730,1730
acetaminophen [Tylenol Extra Strength] 500 mg Tablet
1,000 mg PO DAILYPRN PRN (Reason: MILD PAIN)
Xifaxan 550 mg tablet
225 mg PO DAILY
Motegrity 2 mg tablet
2 mg PO HS
ciprofloxacin HCl 500 mg Tablet
500 mg PO BID Qty: 20 0RF
Rx Instructions:
take if for 8 more days
pantoprazole [Protonix] 40 mg tablet,delayed release (DR/EC)
40 mg PO DAILY Qty: 1 0RF
Rx Instructions:
as before -not a new medication
Referrals:
UNKNOWN - PT DOES,NOT KNOW [Family Provider] -
Interventions
Interventions:
*Risk Screen - Suicide Last Done: 02/28/24 17:20
*General Assessment Last Done: 02/28/24 17:20
*Neglect/Abuse Screening Last Done: 02/28/24 17:20
*ED COVID-19 Vaccine History Last Done: 02/28/24 17:20
DB-Wmnyyk-Omjcnilzia Assessment Last Done: 02/28/24 18:08
Discharge Date and Time
Print Language: HUNGARIAN
[2024-02-28 20:00] VITALS: BP 159/86
[2024-02-28] MEDS: PROTONIX IV 40 MG IV (20:09)
[2024-02-28] MEDS: NSS 2000 IV (20:09)
[2024-02-28 20:29] LABS: COVID-19 Antigen Negative (Negative)
[2024-02-28 21:00] VITALS: BP 152/80
--- NOTE | 2024-02-28 21:16 | HPS.HSE ---
Addendum entered and electronically signed by Arianna Lema MD 02/29/24 01:03:
obs series with dilated loops of bowel, may be pseudo obstruction related to scleroderma
-currently patient sleeping, if recurrent vomiting will place NGT
-GS consulted
-will also consult GI
-keep NPO
Original Note:
Family Physician
-
Family Physician: NOT KNOW UNKNOWN - PT DOES
Chief Complaint
-
nausea and vomiting
History of Present Illness
Mr. Abdiaziz Wing is a 74 yo man with hx DM2, hypertension, scleroderma, SIBO, hx cholecystectomy, admission 12/20 for Campylobacter diarrhea (treated with Cipro) presents to the ER with nausea/vomiting and diarrhea.
Patient states nausea started last night and since then has vomited about 10 times. Has also had about 10 episodes of diarrhea. No black or bloody stools or vomit. No fevers. When he was in with campylobacter did not have vomiting. Currently
continues to feel very nauseated, difficult to speak. He states no new medications since last admit. No abdominal pain, just nausea.
No LE swelling. No rashes. No chest pain. No shortness of breath. No headache.
He lives alone.
Medical History
Past Medical History
Past Medical History: Reports Other
Additional Past Medical History:
SIBO
ASCVD
GERD
Hypertension
DM-II
Scleroderma
Past Surgical History: Reports Other
Additional Past Surgical History:
Cardiac stent x6
Cholecystectomy
Social History
Unable to obtain full social history at this time due to: Dementia
Tobacco: Non-smoker
Alcohol: None
Drug: None
Personal:
Family History
Family History: Not pertinent
Allergies / Home Medications
Allergies reflects when Allergies were last updated in [employer].
Home Medications with original date entered in [employer]
Allergy/Medication List:
Allergies
Allergy/AdvReac Type Severity Reaction Status Date / Time
No Known Allergies Allergy Verified 12/16/23 20:32
Home Medications
losartan 50 mg tablet 50 mg PO HS Blood pressure 06/19/20
aspirin 81 mg tablet,delayed release 81 mg PO HS Blood clot prevention/tx 06/28/20
atorvastatin 80 mg tablet 80 mg PO DAILY High cholesterol 06/28/20
nifedipine 30 mg tablet,extended release 30 mg PO HS Blood pressure 06/28/20
glimepiride 2 mg tablet 2 mg PO DAILY Diabetes 02/08/22
prednisone 5 mg tablet 5 mg PO DAILY SCLERODERMA 02/08/22
pyridostigmine bromide 60 mg tablet 30 mg PO BID@0730,1730 Gastrointestinal Issue 03/19/23
acetaminophen 500 mg tablet (Tylenol Extra Strength) 1,000 mg PO DAILYPRN PRN MILD PAIN 12/12/23
prucalopride 2 mg tablet (Motegrity) 2 mg PO HS Constipation 12/12/23
rifaximin 550 mg tablet (Xifaxan) 225 mg PO DAILY Gastrointestinal Issue 12/12/23
pantoprazole 40 mg tablet,delayed release (Protonix) 40 mg PO DAILY #1 tab 12/18/23
*awaiting med rec confirmation
Review of Systems
-
History Source: Patient
A 12 point ROS was completed and negative except as noted: Yes
Physical Exam
Vital Signs
Vital Signs
Temp Pulse Resp BP Pulse Ox
98.1 F 108 13 149/74 98
02/28/24 18:00 02/28/24 18:07 02/28/24 18:07 02/28/24 18:07 02/28/24 18:07
Physical Exam
General: Other (patient appears uncomfortable )
HEENT: PERRLA
Respiratory: Clear; No Wheezes
Cardiac: S1/S2 and Regular Rhythm
GI: Soft and Non Tender
Musculoskeletal: No Edema
Skin: Warm and Dry
Neuro: AO x 3
Psych: Calm
Laboratory Results
-
02/28/24 17:36
02/28/24 17:36
Laboratory Results
Total Bilirubin 1.1 mg/dl (0.2-1.3) 02/28/24 17:36
AST 23 U/L (17-59) 02/28/24 17:36
ALT 17 U/L (0-50) 02/28/24 17:36
Alkaline Phosphatase 100 U/L (38-126) 02/28/24 17:36
Lipase 130 U/L (23-300) 02/28/24 17:36
Data Reviewed
-
Diagnostic Radiology: Report Reviewed by me
Lab Data: Labs Reviewed by me
Impression/Plan
-
Mr. Abdiaziz Wing is a 74 yo man with hx DM2, hypertension, scleroderma, SIBO, hx cholecystectomy, admission 12/20 for Campylobacter diarrhea (treated with Cipro) presents to the ER with nausea/vomiting and diarrhea.
Triage VS: T 97.6, P 125, RR 28, BP 147/88, SpO2 92%
LABS: WBC 18.6, Hg 12.4, PLT 433, Na 145, K+ 4.1, Cl 108, Cr 1.3, Glucose 129, T. Bili 1.1, AST 23, ALT 17, Alk Phos 100, Lipase 130, random cortisol 21.3
MAR: hydrocortisone, zofran x 2, protonix IV, Phenergan, 2L Bolus
Nausea/Vomiting/Diarrhea
-obtain obstruction series now
-follow up C. Diff, stool culture, norovirus
-s/p zofran in ER without effect, getting phenergan now
-receiving 2L bolus
-obtain lactate
-admit to tele
-IV Compazine PRN
-EKG being obtained now
Hx chronic colonic pseudo obstruction
-on mestinon and motegrity at home - will hold in setting of diarrhea
-follows with Dr. Esparza
GERD
-IV Protonix
Scleroderma
-DSP ENGINEER Prednisone, patient confirmed 5mg daily
Essential Hypertension
-awaiting med rec
DM
-hold DSP ENGINEER oral anti-hyperglycemics
-ISS low
SIBO
-hold DSP ENGINEER Xifaxan while nauseated
CAD - DSP ENGINEER aspirin
DVT PPx Lovenox subQ
FULL CODE
76 minutes spent on patient admission
[2024-02-28 21:22] LABS: Cortisol, Random 21.3 ug/dl
[2024-02-28] MEDS: PHENERGAN 51 MG IV (21:24)
--- NOTE | 2024-02-28 21:26 | PHANOTE ---
med rec jaja(02/28/24)-Patient states he is too nauseous to answer questions. Medication list compiled from the medical record from May's visit and pharmacy records in [facility].
[2024-02-28] MEDS: ZOFRAN 4 MG IV (21:34)
[2024-02-28] MEDS: SOLU-CORTEF 50 MG IV (23:03)
[2024-02-28 23:11] VITALS: BP 146/74
[2024-02-28 23:46] LABS: Lactic Acid 1.8 mmol/L (0.7-2.0)
[2024-02-29] VITALS (13 sets, daily range): BP systolic 121–160; BP diastolic 60–81; BMI 23.3
[2024-02-29] MEDS: FLUSH (NSS) 1 FLUSH IV (00:04)
[2024-02-29] MEDS: LR 1000 IV ×3 (03:14→18:27)
--- NOTE | 2024-02-29 03:27 | PTCARENOTE ---
Rec'd pt from ED RN. Pt pale, drowsy, but arousable, oriented. Denies pain/nausea at this time. Reports syncopal episode at home with associated fall. NSR on yard caller. Pox 96% on RA. LR hung at 125 ml/hr per MD order. Call reyes within reach.
[2024-02-29] MEDS: ASPIR LOW (ENTERIC COATED) 81 MG PO ×2 (03:45→20:31)
[2024-02-29 07:00] LABS: % Basophils 0.2 % (0-2); % Eosinophils 0.1 % (0-6); % Immature Granulocytes 0.5 % (0-0.5); % Lymphocytes 5.5 % (20.5-51.1); % Monocytes 6.9 % (1.7-9.3); % Neutrophils 86.8 % (42.2-75.2); Absolute Immature Granulocytes 0.1 10^3/uL (0-0.05); Absolute Lymphocytes 0.9 10^3/uL (1.2-3.4); Absolute Monocytes 1.2 10^3/uL (0.1-0.6); Absolute Neutrophils 14.9 10^3/uL (1.4-6.5); Hemoglobin 10.3 g/dL (13.0-18.0); Mean Corp Hgb Conc. 32.2 g/dL (33.0-37.0); Mean Corpuscular Hgb 27.4 pg (27.0-31.0); Mean Corpuscular Volume 85.1 fL (80.0-94.0); Mean Platelet Volume 9.3 fL (7.4-10.4); Nucleated Red Blood Cells % 0 % (-); Platelet Count 289 10^3/uL (130-400); Red Blood Cell Count 3.76 10^6/uL (4.70-6.10); White Blood Cell Count 17.2 10^3/uL (4.8-10.8)
[2024-02-29 07:39] LABS: Blood Urea Nitrogen 25 mg/dl (9-20); Calcium 8.9 mg/dl (8.4-10.2); Carbon Dioxide 21 mmol/L (22-30); Chloride 114 mmol/L (98-107); Estimated Creatinine Clearance 64 ml/min; Glucose 131 mg/dl (70-99); Magnesium 1.4 mg/dl (1.6-2.3); Potassium 4.5 mmol/L (3.5-5.1); Sodium 144 mmol/L (135-145); eGFR > 60.00
[2024-02-29] MEDS: PROTONIX IV 40 MG IV (08:32)
[2024-02-29] MEDS: NSS (PRESERVATIVE FREE) 10 ML IV (08:32)
[2024-02-29] MEDS: DELTASONE 5 MG PO (08:32)
[2024-02-29 08:42] LABS: Glucose - Point of Care 119 mg/dl (70-99)
--- NOTE | 2024-02-29 09:09 | PTCARENOTE ---
Assumed care of patient at beginning of this shift from previous RN. Patient denied nausea and pain on initial assessment; hypoactive bs t/o. No further diarrhea. GI in to see patient and ordered clear liquid diet. Remains telemetry level of care;
NSR on monitor.
[2024-02-29 09:11] LABS: Glycohemoglobin (HgbA1c) 6.3 % (4.0-5.6)
--- NOTE | 2024-02-29 09:26 | CON.GI ---
Addendum entered and electronically signed by Anabell Bowles MD 02/29/24 18:15:
I saw and examined the patient.
The TECHNICIAN HELPER INSTRUMENT or PA's note was reviewed and I agree with the note.
Comment: 73 yo M pmh scleroderma, SIBO, chronic pseudo-obstruction, Campylobacter here with flare with n/v/pain/diarrhea similar to prior episodes.
Pt improving.
Adv diet as tolerated.
Stool studies.
Outpatient follow up Drs. Esparza and Ayaz.
OK dc in am from gi pov if continues to improve.
Original Note:
Consultation
-
Date/Time Consultation Requested: 02/29/24114
Date/Time Consultation Performed: 02/29/24919
Requesting Provider: Arianna Lema MD
Performing Provider: MAILE Stephen, Roxanne Bowles MD
Reason for Consultation: concern for scleraderma with GI symptoms
Medical History
Chief Complaint / HPI
Chief Complaint: nausea/vomiting/diarrhea
History of Present Illness:
This is a 73 year old male with a past medical history of scleroderma, SIBO, chronic colonic pseudoobstruction, NIDDM, prior campylobacter infection who is well-known to our GI practice and follows with Dr. Esparza who presents to the hospital with
recurrent episode of nausea, vomiting, abdominal pain and diarrhea very similar to episodes in past. Pt admits to recent trip in [facility] prior to onset. On admission obstruction series pending but preliminary concern for dilated loops of
bowel with concern pseudoobstruction with scleroderma. In reviewing with patient has been a lifelong disease process with prior treatment in [place] years ago and recently also following with Dr. Elder at [place] with recommendation of Xifaxan
along with Pyridostigmine along with chronic prednisone and Motegrity. He also follows locally with Dr. Esparza.
In reviewing with patient he denies odynophagia, GERD, hematemesis, blood or black stool stools.
Past Medical History
Past Medical History: CAD, GERD, HTN, NIDDM and Other (Scleroderma, chronic pseudobstruction, SIBO)
Past Surgical History: Cardiac (stents) and Cholecystectomy
Social History
Tobacco: Non-Smoker
Alcohol: None
Drug: None
Living: Alone
Employment: Employed
Family History
Family History: Other (no family hx colon CA or polyps)
Allergies / Home Medications
Allergy/AdvReac Type Severity Reaction Status Date / Time
No Known Allergies Allergy Verified 12/16/23 20:32
�Medication �Instructions �Recorded
losartan 50 mg tablet 50 mg PO HS Blood pressure 06/19/20
aspirin 81 mg tablet,delayed 81 mg PO HS Blood clot 06/28/20
release prevention/tx
atorvastatin 80 mg tablet 80 mg PO DAILY High cholesterol 06/28/20
nifedipine 30 mg tablet,extended 30 mg PO HS Blood pressure 06/28/20
release
glimepiride 2 mg tablet 2 mg PO DAILY Diabetes 02/08/22
prednisone 5 mg tablet 5 mg PO DAILY SCLERODERMA 02/08/22
pyridostigmine bromide 60 mg tablet 30 mg PO BID@0730,1730 03/19/23
Gastrointestinal Issue
acetaminophen 500 mg tablet 1,000 mg PO DAILYPRN PRN MILD PAIN 12/12/23
(Tylenol Extra Strength)
prucalopride 2 mg tablet 2 mg PO HS Constipation 12/12/23
(Motegrity)
rifaximin 550 mg tablet (Xifaxan) 225 mg PO DAILY Gastrointestinal 12/12/23
Issue
pantoprazole 40 mg tablet,delayed 40 mg PO DAILY GERD 02/29/24
release (Protonix)
Review of Systems
-
History Source: Patient
Constitutional: Reports Weight Loss (few lbs with vomiting )
EENT: Reports No Symptoms
Respiratory: Reports No Symptoms
Cardiac: Reports No Symptoms
Abdomen/GI: Reports Abdominal Pain, Nausea, Vomiting and Diarrhea
: Reports No Symptoms
Musculoskeletal: Reports Other (current back issues )
Skin: Reports Other (changes of scleraderm in hands )
Neurological: Reports No Symptoms
Endocrine: Reports No Symptoms
Hematologic/Lymphatic: Reports No Symptoms
Vital Signs
Temp Pulse Resp BP Pulse Ox
97.6 F 82 16 126/64 96
02/29/24 07:38 02/29/24 08:00 02/29/24 08:00 02/29/24 08:00 02/29/24 03:19
Physical Exam
Exam
General: Well Developed, Well Nourished and No Apparent Distress
HEENT: Normocephalic and Anicteric
Respiratory: Clear
Cardiac: Regular Rhythm
GI: Soft, Non Tender and Distended (mild )
Skin: Warm, Dry and Other (changes of scleraderma in hands )
Neuro: Awake, Alert and AO x 3
Psych: Calm
Results
WBC 17.2 10^3/uL (4.8-10.8) H 02/29/24 06:20
Hgb 10.3 g/dL (13.0-18.0) L 02/29/24 06:20
Hct 32.0 % (39.0-52.0) L 02/29/24 06:20
MCV 85.1 fL (80.0-94.0) 02/29/24 06:20
Plt Count 289 10^3/uL (130-400) D 02/29/24 06:20
Absolute Neuts (auto) 14.9 10^3/uL (1.4-6.5) H 02/29/24 06:20
Sodium 144 mmol/L (135-145) 02/29/24 06:20
Potassium 4.5 mmol/L (3.5-5.1) 02/29/24 06:20
Chloride 114 mmol/L (98-107) H 02/29/24 06:20
Carbon Dioxide 21 mmol/L (22-30) L 02/29/24 06:20
BUN 25 mg/dl (9-20) H 02/29/24 06:20
Creatinine 1.0 mg/dL (0.7-1.3) 02/29/24 06:20
Calcium 8.9 mg/dl (8.4-10.2) 02/29/24 06:20
Total Bilirubin 1.1 mg/dl (0.2-1.3) 02/28/24 17:36
AST 23 U/L (17-59) 02/28/24 17:36
ALT 17 U/L (0-50) 02/28/24 17:36
Alkaline Phosphatase 100 U/L (38-126) 02/28/24 17:36
Lipase 130 U/L (23-300) 02/28/24 17:36
Diagnostic Image Results:
02/29/24 obstruction series pending
12/13/23 CT Abdomen/Pelvis with IV contrast:
1. Mild to moderate diffuse pancolitis, which may be infectious or inflammatory.
2. Chronic findings otherwise appear similar compared to the CT abdomen/pelvis from 04/11/2023, as detailed above.
2021 SBFT
Appearance of proximal small bowel is consistent with given clinical history of scleroderma. No discrete transition point to suggest mechanical obstruction. The bowel gas pattern is improved dating back to CT of 02/26/2022.
2020 MRE
1. � Mild diffuse dilatation of jejunal small bowel loops and proximal ileal small bowel loops. Mild amount of wall thickening and mucosal hyperenhancement throughout the small bowel. Crowding of the valvula conniventes throughout the jejunum
creating a 'hidebound bowel sign' which is very suggestive of SCLERODERMA. Celiac sprue is an alternative diagnostic possibility. Interval decrease in wall thickening and enhancement in jejunal small bowel loops compared with the prior exam
performed 06/30/2020.
2. � No MRI evidence for small bowel intussusception or small bowel mass to suggest lymphoma.
3. � Moderate bilateral renal cortical volume loss.
4. � 2.9 cm complex cyst in the upper pole of the left kidney containing thin enhancing internal septations which appears unchanged.
5. � Severe atherosclerotic disease in the abdominal aorta.
6. � Mild splenomegaly.
7. � Suspected pancreatic divisum.
Prior GI Procedures:
Colonoscopy:
06/15/2023, Dr. Esparza:
-One 10 mm polyp at the hepatic flexure, removed with
a hot snare. Resected and retrieved.
- One diminutive polyp in the descending colon,
removed with a jumbo cold forceps. Resected and
retrieved.
- Diverticulosis in the sigmoid colon.
-Path: tubular adenomas
-Repeat in 3 years for surveillance.
EGD:� Multiple EGDs in the past, by Dr. Corrigan, reports negative
Assessment / Plan
-
This is a 73 year old male with a past medical history of scleroderma, SIBO, chronic colonic pseudoobstruction, NIDDM, prior campylobacter infection who is well-known to our GI practice and follows with Dr. Esparza who presents to the hospital with
recurrent episode of nausea, vomiting, abdominal pain and diarrhea very similar to episodes in past. Pt admits to recent trip in [facility] prior to onset. On admission obstruction series pending but preliminary concern for dilated loops of
bowel with concern pseudoobstruction with scleroderma. In reviewing with patient has been a lifelong disease process with prior treatment in [place] years ago and recently also following with Dr. Elder at [place] with recommendation of Xifaxan
along with Pyridostigmine along with chronic prednisone and Motegrity. He also follows locally with Dr. Esparza.
Impression:
nausea, vomiting, diarrhea and abdominal pain
-hx prior pseudoobstructions
hx Campylobacter
Hx scleroderma, CIPO-follows with Dr. Jacome at [place]
hx SIBO with chronic Xifaxan
wt loss on admission
other medical problems:
-CAD with prior stent
-HTN
-hyperlipidemia
-NIDDM
-GERD
PLAN:
etiology of symptoms related to recent pseudoobstruction with dysmotility with chronic scleroderma, infectious etiology, SBO vs other
await repeat stool studies to rule out infectious etiology and obstruction series
symptoms campo patient is feeling improved -- I reviewed with surgery as abd imaging pending ok to proceed with clear diet
currently on Prednisone 5mg daily and PPI
will need to resume home regiment with Pyridostigmine, Motegrity and Xifaxan when tolerating diet
recent office follow up with Dr. Elder no note reviewed-- will need follow up as scheduled in 6 months-- sooner if not improving or recurrent episode
-
-
Thank you for consultation and allowing me to participate in the patient's care. Please call the software validation engineer GI physician during the after hours with any questions or concerns.
--- NOTE | 2024-02-29 10:36 | CM ---
Patient seen at bedside. Patient states that this is his 10th visit to . Patient states he lives alone in a 2 story home with 2 steps to enter. Patient stated he is still working and has no DME. Patient PCP is Dr. Tamara Bell and he uses the [facility]
in [place]. Patient stated that he has no needs for discharge at this time. CM will continue to follow for discharge planning needs.
Plan; home with no needs vs home with Vn
--- NOTE | 2024-02-29 10:56 | PTCARENOTE ---
Addendum entered by Susana Latham RN 02/29/24 13:34:
Norovirus negative; enhanced precautions removed.
Original Note:
Cdiff resulted negative; await norovirus result. If norovirus results negative, ok to remove enhanced precautions as per JENNIFER Crowley RN.
[2024-02-29] MEDS: MAGNESIUM SULFATE 100 IV (11:15)
--- NOTE | 2024-02-29 12:46 | CON.GS ---
Addendum entered and electronically signed by Richard Kelsey MD 02/29/24 14:29:
Patient seen and examined in follow-up for consultation this afternoon with surgical OCCUPATIONAL HEALTH PROFESSIONAL.
Agree with documented consultation note consistent with my follow-up evaluation.
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
distention/discomfort. He was admitted overnight with general surgery consultation. Currently states that his presenting symptoms have resolved. No abdominal pain. Nausea better. No vomiting. Less frequent diarrhea.
Medical history also notable for CAD, hypertension, hypercholesterolemia, NIDDM, CKD, previous history of Campylobacter
Past abdominal surgical history only notable for laparoscopic cholecystectomy
AFVSS
NAD AAOx3; comfortably resting in hospital bed
ABD: Softly distended/protuberant but nontender. No rebound rigidity or guarding. Not tensely distended.
Assessment/plan: 74-year-old male with scleroderma and known history of chronic intermittent colonic pseudoobstruction presenting with likely an acute exacerbation of his chronic dysmotility. Improving overnight and into the day today with
conservative management, bowel rest.
Okay for clear liquids.
Subsequent dietary advancement per GI
If was to have recurrent obstructive symptoms with dietary advancement or clinical change would recommend obtaining further radiographic imaging with CT contrast study.
General surgery will sign off, please call if can be of further assistance with care
Original Note:
Consultation
-
Date/Time Consultation Requested: 02/29/24116
Requesting Provider: Torey
Medical History
-
Chief Complaint: Abdominal pain with n/v
History of Present Illness:
Mr Wing is a 74 yo male with a h/o scleroderma, SIBO, chronic colonic pseudoobstruction, NIDDM, and cholecystectomy who follows closely with gastroenterology as an outpatient who presents this admission with nausea, vomiting and diarrhea which
began 2 days ago after a trip to the beach. He vomited multiple times with multiple episodes of nonbloody diarrhea causing him to present for evaluation last night as his symptoms had lasted for >24h. At the time of exam, he notes resolution of
nausea and very little diarrhea this am. He has had clear liquids this am without recurrent symptoms. He notes no abdominal pain throughout this episode and none currently. On exam, his abdomen is non-tender and non-distended.
Past Medical History
Past Medical History: CAD, HTN, Hypercholesterolemia, NIDDM and Other (CKD, SIBO, campylobacter diarrhea tx with cipro in november, scleroderma with colonic psuedoobstruction)
Past Surgical History: Cardiac (stents) and Cholecystectomy
Social History
Tobacco: Non-Smoker
Alcohol: None
Drug: None
Family History
Family History: Reviewed & Not Pertinent
Allergies / Home Medications
Allergy/AdvReac Type Severity Reaction Status Date / Time
No Known Allergies Allergy Verified 12/16/23 20:32
�Medication �Instructions �Recorded �Confirmed �Type
losartan 50 mg tablet 50 mg PO HS Blood pressure 06/19/20 12/16/23 History
aspirin 81 mg tablet,delayed 81 mg PO HS Blood clot 06/28/20 12/16/23 History
release prevention/tx
atorvastatin 80 mg tablet 80 mg PO DAILY High cholesterol 06/28/20 12/16/23 History
nifedipine 30 mg tablet,extended 30 mg PO HS Blood pressure 06/28/20 12/16/23 History
release
glimepiride 2 mg tablet 2 mg PO DAILY Diabetes 02/08/22 12/16/23 History
prednisone 5 mg tablet 5 mg PO DAILY SCLERODERMA 02/08/22 12/16/23 History
pyridostigmine bromide 60 mg tablet 30 mg PO BID@0730,1730 03/19/23 12/16/23 History
Gastrointestinal Issue
acetaminophen 500 mg tablet 1,000 mg PO DAILYPRN PRN MILD PAIN 12/12/23 12/16/23 History
(Tylenol Extra Strength)
prucalopride 2 mg tablet 2 mg PO HS Constipation 12/12/23 12/16/23 History
(Motegrity)
rifaximin 550 mg tablet (Xifaxan) 225 mg PO DAILY Gastrointestinal 12/12/23 12/16/23 History
Issue
pantoprazole 40 mg tablet,delayed 40 mg PO DAILY GERD 02/29/24 History
release (Protonix)
Review of Systems
-
History Source: Patient
All other systems: Negative unless noted
A 10 point review of systems was completed, and was negative except as per HPI.
Physical Exam
Vital Signs
Temp Pulse Resp BP Pulse Ox
98.1 F 74 16 137/69 96
02/29/24 11:00 02/29/24 12:00 02/29/24 12:00 02/29/24 12:00 02/29/24 03:19
02/28/24 02/29/24 03/01/24
06:59 06:59 06:59
Actual Weight 69.6 kg
Body Mass Index (BMI) 23.3
Lab Results
02/29/24 06:20
02/29/24 06:20
WBC 17.2 10^3/uL (4.8-10.8) H 02/29/24 06:20
Hgb 10.3 g/dL (13.0-18.0) L 02/29/24 06:20
Hct 32.0 % (39.0-52.0) L 02/29/24 06:20
Plt Count 289 10^3/uL (130-400) D 02/29/24 06:20
Abs Immat Gran (auto) 0.1 10^3/uL (0-0.05) H 02/29/24 06:20
Neutrophils % 86.8 % (42.2-75.2) H 02/29/24 06:20
Physical Exam
General: Well Developed and Well Nourished
HEENT: Moist Mucous Membranes
Respiratory: Non Labored Respirations
GI: Soft, Non Tender and Non Distended
Skin: Warm and Dry
Neuro: Awake, Alert and AO x 3
Psych: Calm
Data Reviewed
-
Radiology: Image Personally Visualized and interpreted, Report Reviewed by me, Discussed with Physician and Discussed with Patient
Labs: Labs Reviewed by me, Discussed with Physician and Discussed with Patient
Old Records: Reviewed
Assessment / Plan
-
74 yo male with a h/o scleroderma, SIBO, chronic colonic pseudoobstruction, NIDDM, and cholecystectomy who follows closely with gastroenterology as an outpatient who presents this admission with nausea, vomiting and abdominal pain which began 2
days ago. Abdominal XR with dilated loops of small bowel with gas within the distal colon. Since presentation, symptoms have resolved and he is currently tolerating clears. Negative stool studies thus far. Recent tx for Campylobacter which is still
pending.
AFVSS. Leukocytosis on presentation which is trending down off abx, also of noted the patient is on oral steroids which may be contributing. Suspect symptoms/XR findings most consistent with his recurrent colonic pseudoobstruction. He reports this
episode similar to prior episodes. No abdominal pain/tenderness. Diarrhea improved with resolution of n/v. No plans for surgical intervention at this time.
--Diet advancement as per GI
--Medical management as per primary team
[2024-02-29 13:03] LABS: Glucose - Point of Care 126 mg/dl (70-99)
--- NOTE | 2024-02-29 13:35 | PTCARENOTE ---
Patient to be transferred to [facility]; report given to
--- NOTE | 2024-02-29 17:16 | W.PN.HOSP.TC ---
Addendum entered and electronically signed by Mora Cerda MD 02/29/24 19:25:
I saw and evaluated the patient independently. I reviewed the resident�s note and agree with findings and plan as documented by Dr. Nguyen.
GENERAL: well developed, well nourished,male in no apparent distress
HEENT: NC/AT
HEART: regular rate and rhythm, +S1, +S2
LUNGS : clear to auscultation bilaterally
ABDOM: soft, nontender, nondistended, + bowel sounds
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
Partial Small bowel obstruction vs pseudoobstruction from scleroderma--passing gas, moving bowels--advancing diet--if tolerates, home in AM-GI consult appreciated-Surgery consult appreciated
Scleroderma-Continue prednisone
Hypomagnesemia-Serum magnesium-Monitor magnesium
Essential Hypertension-Continue losartan, nifedipine
Hyperlipidemia-Continue atorvastatin
Diabetes mellitus type 2-Continue insulin aspart
GERD-Continue pantoprazole
Full code
DVT prophylaxis Lovenox
Original Note:
Today's Communication/Plan
-
GI consult
Surgery consult
Diarrhea full liquids for lunch. If tolerated, low residue for dinner
Replete magnesium for hypomagnesemia
Continue IV fluids
Assessment / Plan
Assessment / Plan
IMPRESSION: 74-year-old male with known history of scleroderma and resultant GI motility disorder presenting with nausea vomiting and diarrhea.
PLAN:
Small bowel obstruction
-Known history of scleroderma
-History of chronic intermittent colonic pseudoobstruction
-History of SIBO
-Last admission November 2023, diarrhea (Campylobacter) treated with Cipro
-Continue IV fluids
-Continue PPI
-Abdominal x-ray: dilated small bowel loops most consistent with small bowel obstruction
-GI consult appreciated
-Surgery consult appreciated
-Patient has had bowel movement today.
-Full liquids for lunch. If tolerated, low residue for dinner.
Scleroderma
-Continue prednisone
Hypomagnesemia
-Serum magnesium
-Monitor magnesium
Hypertension
-Continue losartan, nifedipine
Hyperlipidemia
-Continue atorvastatin
Diabetes mellitus type 2
-Continue insulin aspart
GERD
-Continue pantoprazole
Full code
DVT prophylaxis Lovenox
Anticipated Discharge: 24 - 48 hours
Subjective/Interval History
-
Date of Service: February 29, 2024
Objective Data
-
Labs:
Laboratory Results
02/29/24
06:20
WBC 17.2 H
Hgb 10.3 L
Hct 32.0 L
Plt Count 289 D
Sodium 144
Potassium 4.5
Chloride 114 H
Carbon Dioxide 21 L
BUN 25 H
Creatinine 1.0
Glucose 131 H
Calcium 8.9
Vital Signs:
Vital Signs
Temp Pulse Resp BP Pulse Ox
99.5 F 83 16 146/74 96
02/29/24 15:20 02/29/24 15:20 02/29/24 15:20 02/29/24 15:20 02/29/24 15:20
I&O
02/28/24 02/29/24 03/01/24
06:59 06:59 06:59
Output Total 725 / 725
Balance -725 / -725
Review of Systems
-
Constitutional: Denies Fever
Respiratory: Denies Trouble Breathing
Cardiac: Denies Chest Pain
Neuro: Denies Dizzy
Physical Exam
-
General: No Apparent Distress
HEENT: Moist Mucous Membranes
Respiratory: Clear to Auscultation
Cardiac: Regular Rhythm and S1/S2
GI: Soft and Nontender
Neuro: AO x 3
[2024-02-29 18:03] LABS: Glucose - Point of Care 136 mg/dl (70-99)
[2024-02-29] MEDS: LOVENOX 40 MG SC (18:27)
[2024-02-29 21:56] LABS: Glucose - Point of Care 134 mg/dl (70-99)
[2024-03-01 02:54] VITALS: BP 138/69
[2024-03-01] MEDS: LR 1000 IV (04:12)
[2024-03-01 06:00] VITALS: BMI 23.3
[2024-03-01 07:30] VITALS: BP 145/83
[2024-03-01 07:31] LABS: Glucose - Point of Care 106 mg/dl (70-99)
[2024-03-01 08:04] LABS: % Basophils 0.3 % (0-2); % Immature Granulocytes 0.2 % (0-0.5); % Lymphocytes 13.4 % (20.5-51.1); % Neutrophils 74.1 % (42.2-75.2); Absolute Eosinophils 0.2 10^3/uL (0-0.7); Absolute Lymphocytes 1.2 10^3/uL (1.2-3.4); Absolute Monocytes 0.9 10^3/uL (0.1-0.6); Absolute Neutrophils 6.8 10^3/uL (1.4-6.5); Hematocrit 29.2 % (39.0-52.0); Hemoglobin 9.5 g/dL (13.0-18.0); Mean Corp Hgb Conc. 32.5 g/dL (33.0-37.0); Mean Corpuscular Hgb 27.6 pg (27.0-31.0); Mean Corpuscular Volume 84.9 fL (80.0-94.0); Mean Platelet Volume 9.4 fL (7.4-10.4); Nucleated Red Blood Cells % 0 % (-); Platelet Count 255 10^3/uL (130-400); Red Blood Cell Count 3.44 10^6/uL (4.70-6.10); Red Cell Dist. Width 15.9 % (11.5-14.5); White Blood Cell Count 9.2 10^3/uL (4.8-10.8)
[2024-03-01] MEDS: PROTONIX IV 40 MG IV (08:22)
[2024-03-01] MEDS: NSS (PRESERVATIVE FREE) 10 ML IV (08:23)
[2024-03-01] MEDS: DELTASONE 5 MG PO (08:24)
[2024-03-01] MEDS: COZAAR 50 MG PO (08:24)
[2024-03-01 08:29] LABS: Blood Urea Nitrogen 22 mg/dl (9-20); Calcium 9.2 mg/dl (8.4-10.2); Carbon Dioxide 22 mmol/L (22-30); Chloride 110 mmol/L (98-107); Estimated Creatinine Clearance 58 ml/min; Glucose 96 mg/dl (70-99); Magnesium 2.1 mg/dl (1.6-2.3); Potassium 4.3 mmol/L (3.5-5.1); Sodium 140 mmol/L (135-145); eGFR > 60.00
--- NOTE | 2024-03-01 09:19 | W.PN.GI.CBS2 ---
Today's Communication / Plan
-
discharge planning gi signing off
Assessment / Plan
-
73 yo M pmh scleroderma, SIBO, chronic pseudo-obstruction, Campylobacter here with flare with n/v/pain/diarrhea similar to prior episodes.
Pt improving.
Tolerating diet.
Stool studies pending.
Outpatient follow up Drs. Esparza and Ayaz.
OK GI POV for d/c d/w hospitalist.
GI will sign off pls call with ?s
Subjective
Subjective
Date of Service: March 01, 2024
tolerated breakfast feeling well
Objective
Data Reviewed
Laboratory Data:
Laboratory Results
03/01/24 07:52
03/01/24 07:52
Laboratory Results
Magnesium 2.1 mg/dl (1.6-2.3) 03/01/24 07:52
Total Bilirubin 1.1 mg/dl (0.2-1.3) 02/28/24 17:36
AST 23 U/L (17-59) 02/28/24 17:36
ALT 17 U/L (0-50) 02/28/24 17:36
Alkaline Phosphatase 100 U/L (38-126) 02/28/24 17:36
Lipase 130 U/L (23-300) 02/28/24 17:36
Vital Signs and I&O:
Vital Signs
Temp Pulse Resp BP Pulse Ox
98.2 F 80 17 145/83 98
03/01/24 07:30 03/01/24 08:24 03/01/24 07:30 03/01/24 08:24 03/01/24 07:30
I&O
02/29/24 03/01/24 03/02/24
06:59 06:59 06:59
Intake Total 300 / 300
Output Total 725 / 725
Balance -425 / -425
Physical Exam
Physical Exam
GI: Non Distended and Non Tender
--- NOTE | 2024-03-01 09:52 | W.PN.HOSP.TC ---
Today's Communication/Plan
-
d/c
Assessment / Plan
Assessment / Plan
Pt is a 74 year old male
Partial Small bowel obstruction vs pseudoobstruction from scleroderma- resolved---passing gas, moving bowels--tolerating diet--apprec GI/surg
Scleroderma-Continue prednisone
Hypomagnesemia-Serum magnesium-Monitor magnesium
Essential Hypertension-Continue losartan, nifedipine
Hyperlipidemia-Continue atorvastatin
Diabetes mellitus type 2-Continue insulin aspart
GERD-Continue pantoprazole
Full code
DVT prophylaxis Lovenox
Anticipated Discharge: Today
Subjective/Interval History
-
Date of Service: March 01, 2024
pt tolerated low residue diet--OK for d/c
Objective Data
-
Labs:
Laboratory Results
03/01/24
07:52
WBC 9.2
Hgb 9.5 L
Hct 29.2 L
Plt Count 255
Sodium 140
Potassium 4.3
Chloride 110 H
Carbon Dioxide 22
BUN 22 H
Creatinine 1.1
Glucose 96
Calcium 9.2
Vital Signs:
max temp for 24 hours
02/29/24
19:15
Temp 99.4 F
Vital Signs
Temp Pulse Resp BP Pulse Ox
98.2 F 80 17 145/83 98
03/01/24 07:30 03/01/24 08:24 03/01/24 07:30 03/01/24 08:24 03/01/24 07:30
I&O
02/29/24 03/01/24 03/02/24
06:59 06:59 06:59
Intake Total 300 / 300
Output Total 725 / 725
Balance -425 / -425
Review of Systems
-
All other systems: Reviewed and negative
Physical Exam
-
General: Well Developed, Well Nourished and No Apparent Distress
HEENT: Normocephalic and Atraumatic
Respiratory: Clear to Auscultation; Negative Wheezes or Rhonchi
Cardiac: Regular Rhythm and S1/S2; Negative Murmur
GI: Soft, Nontender, Nondistended and Normal Bowel Sounds
Musculoskeletal: No Clubbing, No Cyanosis, No Edema and Other (sclerodactyly)
Skin: Warm
Neuro: Awake
Psych: Calm
--- NOTE | 2024-03-01 10:29 | CM ---
Chart reviewed and patient is for discharge to home today, no needs.
Plan; Home today no needs.
[2024-03-01 10:49] VITALS: BP 158/84
--- NOTE | 2024-03-01 12:33 | W.DCSUMMARY ---
Discharge Summary
Discharge Data
Date of Admission: 02/28/24
Date of Discharge: 03/01/24
-
Pending Results: No
Hospital Course
Primary care physician : Not Listed
Principal Discharge diagnosis : Partial small bowel obstruction versus pseudoobstruction from scleroderma
Chronic Discharge diagnosis : Scleroderma, essential hypertension, hyperlipidemia, diabetes mellitus type 2, gastroesophageal reflux disease, hypomagnesemia
Hospital Course : Patient was a 74-year-old male with a history of scleroderma. In November of this year he was admitted for Campylobacter diarrhea and treated with ciprofloxacin. Patient developed nausea starting the night prior to admission with
subsequent vomiting approximately 10 times. He stated he also had 10 episodes of diarrhea but no black, bloody stools. He denied fevers. Obstruction series showed dilated loops of bowel which were either partial small bowel obstruction or
pseudoobstruction. Patient was admitted.
Problem #1: Partial small bowel obstruction versus pseudoobstruction from scleroderma. Patient was admitted and given bowel rest. He was given IV fluids. He started having bowel movements and passing gas. He was seen in consultation by general
surgery and there were no plans for surgery. Diet was advanced. He is tolerating his diet and is stable for discharge home at this time. Patient's white blood cell count was elevated on admission and has normalized at the time of discharge.
Problem #2: All other medical issues. These include Scleroderma, essential hypertension, hyperlipidemia, diabetes mellitus type 2, gastroesophageal reflux disease, hypomagnesemia. These medical issues were stable during his hospitalization.
Medications were continued as able. Magnesium was repleted as needed.
Patient is stable for discharge home at this time. If there are any questions regarding this dictation or his hospital stay, please not hesitate to call. Our office number is [phone].
Important imaging findings :
OBSTRUCTION SERIES IMPRESSION: Findings as above most consistent with small bowel obstruction.
Discharge Plan
-
Patient Disposition: Home (Routine Discharge)
Discharge Diagnosis/Procedures: Partial small bowel obstruction versus pseudoobstruction from scleroderma, hypomagnesemia, essential hypertension, hyperlipidemia, type 2 diabetes mellitus, gastroesophageal reflux disease
Condition: Good
Diet: Low Residue
Additional Diets: advance to usual diet as tolerated
Activity: As tolerated
Driving Restrictions: As prior to admission
Bathing Restrictions: None
Referrals:
UNKNOWN - PT DOES,NOT KNOW [Family Provider] - in less than 1 week
Prescriptions:
Continued
losartan 50 MG tablet
50 mg PO HS
aspirin 81 MG tablet,delayed release (DR/EC)
81 mg PO HS
atorvastatin 80 MG tablet
80 mg PO DAILY
nifedipine 30 MG tablet extended release
30 mg PO HS
prednisone 5 mg Tablet
5 mg PO DAILY
glimepiride 2 mg Tablet
2 mg PO DAILY
pyridostigmine bromide 60 mg tablet
30 mg PO BID@0730,1730
acetaminophen [Tylenol Extra Strength] 500 mg Tablet
1,000 mg PO DAILYPRN PRN (Reason: MILD PAIN)
Xifaxan 550 mg tablet
225 mg PO DAILY
Motegrity 2 mg tablet
2 mg PO HS
pantoprazole [Protonix] 40 mg tablet,delayed release (DR/EC)
40 mg PO DAILY
Rx Instructions:
as before -not a new medication
Discharge Orders:
Discharge Patient (As Directed); Ordered 03/01/24
Ordered By: Mora Cerda
Discharge Date and Time
Discharge Date/Time: 03/01/24 10:57
Print Language: BARBADIAN
== END 2024-03-01 10:57 | disposition home or self-care (01) | DRG 390 ==
LOC: 4 WEST ACU 22:22
PROVIDERS: Student in an Organized Health Care Education/Training Program; ADMITTING PHYSICIAN Student in an Organized Health Care Education/Training Program; ATTENDING PHYSICIAN Internal Medicine; CONSULT PHYSICIAN Internal Medicine Gastroenterology; EMERGENCY PHYSICIAN Emergency Medicine; OTHER PHYSICIAN Surgery
DX: K56.600 Partial intestinal obstruction, unspecified as to cause (principal); M34.9 Systemic sclerosis, unspecified; E11.22 Type 2 diabetes mellitus with diabetic chronic kidney disease; F03.90 Unspecified dementia, unspecified severity, without behavioral disturbance, psychotic disturbance, mood disturbance, and anxiety; I12.9 Hypertensive chronic kidney disease with stage 1 through stage 4 chronic kidney disease, or unspecified chronic kidney disease; N18.9 Chronic kidney disease, unspecified; K63.8219 Small intestinal bacterial overgrowth, unspecified; K21.9 Gastro-esophageal reflux disease without esophagitis; E78.00 Pure hypercholesterolemia, unspecified; I25.10 Atherosclerotic heart disease of native coronary artery without angina pectoris; Z95.5 Presence of coronary angioplasty implant and graft; E83.42 Hypomagnesemia; K57.30 Diverticulosis of large intestine without perforation or abscess without bleeding; E86.0 Dehydration; R19.7 Diarrhea, unspecified; Z79.52 Long term (current) use of systemic steroids; Z79.82 Long term (current) use of aspirin; Z79.84 Long term (current) use of oral hypoglycemic drugs; Z79.899 Other long term (current) drug therapy; Z87.19 Personal history of other diseases of the digestive system; Z86.19 Personal history of other infectious and parasitic diseases; Z90.49 Acquired absence of other specified parts of digestive tract; Z86.010 Personal history of colon polyps
CPT/HCPCS: 74022; 80048; 80053; 82533; 82962; 83036; 83605; 83690; 83735; 85025; 87045; 87046; 87324; 87427; 87449; 87798; 87811; 93005; 96365; 96375; 99285

== ENCOUNTER → 2024-05-23 12:23 | Outpatient (REF) | payer OTHER, SELFPAY | LOC: HWRAD 12:23 | PROVIDERS: ATTENDING PHYSICIAN Internal Medicine Rheumatology; FAMILY PHYSICIAN Family Medicine | DX: L94.0 Localized scleroderma [morphea] (principal) | CPT/HCPCS: 71250 ==

== ENCOUNTER 2024-07-20 20:50 | Emergency (ER) | payer OTHER, SELFPAY ==
[2024-07-20 21:05] VITALS: BP 103/74
[2024-07-20 21:26] LABS: % Basophils 0.3 % (0-2); % Eosinophils 0.6 % (0-6); % Immature Granulocytes 0.3 % (0-0.5); % Lymphocytes 8.4 % (20.5-51.1); % Monocytes 10.7 % (1.7-9.3); % Neutrophils 79.7 % (42.2-75.2); Absolute Basophils 0.1 10^3/uL (0-0.2); Absolute Eosinophils 0.1 10^3/uL (0-0.7); Absolute Lymphocytes 1.3 10^3/uL (1.2-3.4); Absolute Monocytes 1.7 10^3/uL (0.1-0.6); Absolute Neutrophils 12.6 10^3/uL (1.4-6.5); Hematocrit 36.6 % (39.0-52.0); Hemoglobin 11.6 g/dL (13.0-18.0); Mean Corp Hgb Conc. 31.7 g/dL (33.0-37.0); Mean Corpuscular Hgb 24.4 pg (27.0-31.0); Mean Corpuscular Volume 77.1 fL (80.0-94.0); Nucleated Red Blood Cells % 0 % (-); Platelet Count 438 10^3/uL (130-400); Red Blood Cell Count 4.75 10^6/uL (4.70-6.10); Red Cell Dist. Width 17.6 % (11.5-14.5); White Blood Cell Count 15.8 10^3/uL (4.8-10.8)
[2024-07-20 21:45] LABS: ALT (SGPT) 21 U/L (0-50); AST (SGOT) 23 U/L (17-59); Alkaline Phosphatase 103 U/L (38-126); Blood Urea Nitrogen 30 mg/dl (9-20); Calcium 9.4 mg/dl (8.4-10.2); Carbon Dioxide 22 mmol/L (22-30); Chloride 105 mmol/L (98-107); Glucose 192 mg/dl (70-99); Lipase 85 U/L (23-300); Potassium 4.2 mmol/L (3.5-5.1); Sodium 141 mmol/L (135-145); Total Bilirubin 1.2 mg/dl (0.2-1.3); Total Protein 7.7 g/dl (6.3-8.2); eGFR 48.85
[2024-07-20 23:12] VITALS: BP 137/67
[2024-07-20 23:13] VITALS: BMI 22.1
--- NOTE | 2024-07-20 23:13 | ED.GENMED ---
History of Present Illness
General
Chief Complaint: Abdominal Symptoms
Source: patient
Exam Limitations: none
Time Seen by Provider: 07/20/24 22:55
History of Present Illness
History of Present Illness:
This is a 74 year old male that comes in with c/o vomiting and diarrhea. States that he started last night with vomiting and diarrhea and this went throughout the night. Staes that he had a fever of 101 with chills, abd cramping and felt like he
was going to faint. Denies any chest pain, SOB, headache, dizziness, urinary burning.
Past History
Past History
ED Past Medical History: CAD, GERD, HTN, Hypercholesterolemia, NIDDM, MS and Other (scleroderma, SBO,, PNA, Pulmonary fibrosis, Gastroporesis)
ED Past Surgical History: Cardiac (Stents X 6) and Cholecystectomy
Social History
Tobacco: Non-smoker
Alcohol: None
Drug: None
Personal:
Living: with family
Employment: Retired
Family History
Family History: CAD
Review of Systems
Review of Systems
All Other Systems: ROS reviewed and negative except as documented in HPI and ROS
Constitutional: Reports fever and chills
EENT: Reports no symptoms
Respiratory: Reports no symptoms; Denies cough or trouble breathing
Cardiac: Reports no symptoms; Denies chest pain
ABD/GI: Reports abdominal pain, nausea, vomiting and diarrhea
: Reports no symptoms; Denies dysuria, frequency or urgency
Musculoskeletal: Reports no symptoms
Skin: Reports no symptoms
Neurological: Reports no symptoms; Denies dizzy or headache
Psychiatric: Reports no symptoms
Phy Exam
General Physical Exam
General Presentation: no apparent distress
General age: appears stated age
General Skin: warm and dry
General Habitus: elderly
General Mental: alert
General Hydration: dry mucous membranes
ENT Exam
ENT Exam: TM's normal, pharynx normal and neck supple
Eye Exam
Eye Exam: EOMI
Cardiovascular Exam
Cardiovascular Exam: regular rate/rhythm, no edema, no murmur and normal peripheral pulses
Pulmonary Exam
Pulmonary Exam: no respiratory distress, chest non tender, no rhonchi, no wheezing, no cough and other (Very fine crackles at bases)
Gastrointestinal Exam
Gastrointestinal Exam: non tender, soft, no organomegaly, no pulsatile mass, non distended and other (Hypoactive bowel sounds)
Musculoskeletal Exam
Musculoskeletal Exam: full ROM and no edema
Skin Exam
Skin Exam: normal color, warm/dry, no rash and no petechia
Psychiatric Exam
Psychiatric Exam: normal mood/affect
Course
Orders/Labs/Results
Orders:
Orders
07/20/24 21:21
Complete Blood Count/With Diff Urgent
Comprehensive Metabolic Panel Urgent
Lipase Urgent
07/20/24 23:13
0.9% Sodium Chloride 1000 ml [Nss] 1,000 ml IV BOLUS
Ondansetron Injectable [Zofran] 4 mg IV NOW STA
07/20/24 23:19
Dicyclomine HCl [Bentyl] 20 mg IM NOW STA
Abnormal Lab Results
07/20/24
21:21
WBC 15.8 H 10^3/uL
(4.8-10.8)
Hgb 11.6 L g/dL
(13.0-18.0)
Hct 36.6 L %
(39.0-52.0)
MCV 77.1 L fL
(80.0-94.0)
MCH 24.4 L pg
(27.0-31.0)
MCHC 31.7 L g/dL
(33.0-37.0)
RDW 17.6 H %
(11.5-14.5)
Plt Count 438 H 10^3/uL
(130-400)
Absolute Neuts (auto) 12.6 H 10^3/uL
(1.4-6.5)
Absolute Monos (auto) 1.7 H 10^3/uL
(0.1-0.6)
Neutrophils % 79.7 H %
(42.2-75.2)
Lymphocytes % 8.4 L %
(20.5-51.1)
Monocytes % 10.7 H %
(1.7-9.3)
BUN 30 H mg/dl
(9-20)
Creatinine 1.5 H mg/dL
(0.7-1.3)
Glucose 192 H mg/dl
(70-99)
07/20/24 21:21
07/20/24 21:21
Leukocytosis, H/H slightly low. Plt slightly elevated. Dehydration. Hyperglycemia. Lipase normal at 85
Vital Signs
Initial and Last Documented VS:
Initial Vital Signs
Temp Pulse Resp BP Pulse Ox
98.4 F 115 20 103/74 99
07/20/24 21:05 07/20/24 21:05 07/20/24 21:05 07/20/24 21:05 07/20/24 21:05
Last Documented Vital Signs
Temp Pulse Resp BP Pulse Ox
98.4 F 84 15 132/64 99
07/20/24 21:05 07/21/24 01:45 07/20/24 23:15 07/21/24 01:00 07/20/24 23:14
MDM/Problems Addressed
Differential Diagnosis Includes:
Viral GI syndrome. Fever
MDM/Problems Addressed:
This is a 74 year old male that comes in with c/o nausea. vomiting, States that this started last night. States that he has abd cramping.
Will check labs, Give IV fluids Zofran for the nausea and vomiting Bentyl for his cramping. Will recheck.
Back into see patient. Patient was sleeping. Arouse easily and states that he is feeling better. Patient states that he is ready to go home. WIll sent a prescription for Zofran to his pharmacy. Encouraged patient to stay away form milk and milk
products until the diarrhea stops. Patient to return with any concerns.
Chronic conditions affecting care: DM
Acute Exacerbation and/or Progression of Chronic Illness:
NA
*Pulse Oximetry
Patient hypoxic: no
*EKG
Interpreted by ED Provider?: NA
Rate: EKG- N/A
*Tool Profiling Machine Set Up Operator Interpretation
Rate: normal
Heart Rate: 97
Rhythm: sinus
*Critical Care Note
Total Time (30-74mins, 75-104mins- exclusive of procedures): Not Applicable
ED Attending Note
-
Portions of this chart may have been created with voice recognition software.� Occasional wrong word or��sound alike� substitutions may have occurred due to the inherent limitations of voice recognition software.
Discharge Plan
Departure
Patient Disposition: Home (Routine Discharge)
Date of Disposition: 07/21/24
Time of Disposition: 01:56
Patient with high blood pressure during this ER visit?: Yes
Condition: Good
Covid-19: Not Applicable
Discharge Problem:
Nausea vomiting and diarrhea
Instructions: Diarrhea in teens and adults, Nausea and Vomiting, Adult (DC), BLOOD PRESSURE
Prescriptions:
New
ondansetron 4 mg tablet,disintegrating
4 mg PO Q8H PRN (Reason: nausea and vomiting) Qty: 10 0RF
No Action
losartan 50 MG tablet
50 mg PO HS
aspirin 81 MG tablet,delayed release (DR/EC)
81 mg PO HS
atorvastatin 80 MG tablet
80 mg PO DAILY
nifedipine 30 MG tablet extended release
30 mg PO HS
prednisone 5 mg Tablet
5 mg PO DAILY
glimepiride 2 mg Tablet
2 mg PO DAILY
pyridostigmine bromide 60 mg tablet
30 mg PO BID@0730,1730
acetaminophen [Tylenol Extra Strength] 500 mg Tablet
1,000 mg PO DAILYPRN PRN (Reason: MILD PAIN)
Xifaxan 550 mg tablet
225 mg PO DAILY
Motegrity 2 mg tablet
2 mg PO HS
pantoprazole [Protonix] 40 mg tablet,delayed release (DR/EC)
40 mg PO DAILY
Rx Instructions:
as before -not a new medication
Referrals:
Tamara Bell MD [Family Provider] - Follow up in 5-7 days
Activity Restrictions/Additional Instructions:
As discussed, your blood work shows that your white blood cell count is elevated and that you are Dehydrated. This is most likely a viral syndrome. Please stay away from milk and milk products until the diarrhea stops. Please continue with sips of
liquid every 15 min when away to help with hydration. You may also eat Jell-O as this has protein in it. You have had a prescription for Zofran sent to your pharmacy to help with any nausea/vomiting. Please follow up with the family doctor for
recheck. IF YOU HAVE ANY OTHER CONCERNS PLEASE RETURN TO THE EMERGENCY ROOM.
Interventions
Interventions:
*Risk Screen - Suicide Last Done: 07/20/24 23:14
*General Assessment Last Done: 07/20/24 21:05
*Neglect/Abuse Screening Last Done: 07/20/24 23:14
ED- Fall Risk Assessment Last Done: 07/20/24 23:56
*ED COVID-19 Vaccine History Last Done: 07/20/24 23:14
XR-Odrmct-Gnlotqnnzp Assessment Last Done: 07/20/24 23:14
Discharge Date and Time
Print Language: URDU
[2024-07-20 23:14] VITALS: BP 137/67
[2024-07-20] MEDS: NSS 1000 IV (23:15)
[2024-07-20] MEDS: ZOFRAN 4 MG IV (23:20)
[2024-07-20] MEDS: BENTYL 20 MG IM (23:38)
[2024-07-21] VITALS: BP 127/64
[2024-07-21 01:00] VITALS: BP 132/64
== END 2024-07-21 03:05 | disposition home or self-care (01) ==
LOC: EMR 20:50
PROVIDERS: Emergency Medicine; EMERGENCY PHYSICIAN Emergency Medicine; FAMILY PHYSICIAN Family Medicine
DX: R11.2 Nausea with vomiting, unspecified (principal); R19.7 Diarrhea, unspecified; I25.10 Atherosclerotic heart disease of native coronary artery without angina pectoris; K21.9 Gastro-esophageal reflux disease without esophagitis; I10 Essential (primary) hypertension; E78.00 Pure hypercholesterolemia, unspecified; E11.9 Type 2 diabetes mellitus without complications; I25.2 Old myocardial infarction; J84.10 Pulmonary fibrosis, unspecified; Z82.49 Family history of ischemic heart disease and other diseases of the circulatory system; Z90.49 Acquired absence of other specified parts of digestive tract; Z95.5 Presence of coronary angioplasty implant and graft
CPT/HCPCS: 99282; 96374; 96372; 96361; 80053; 83690; 85025

== ENCOUNTER 2024-07-24 12:45 | Inpatient (IN) | payer OTHER, MEDICARE, SELFPAY ==
[2024-07-24] VITALS (14 sets, daily range): BP systolic 113–144; BP diastolic 55–69; BMI 21.8
--- NOTE | 2024-07-24 08:10 | ED.GENMED ---
History of Present Illness
<MAILE Marcano - Last Filed: 07/25/24 15:24>
General
Chief Complaint: Fainting/Passed Out
Source: patient
Exam Limitations: none
Time Seen by Provider: 07/24/24 08:10
Nursing documentation reviewed up to this point in time: agreed with
History of Present Illness
History of Present Illness:
Patient is a 74-year-old male past medical history of scleroderma hypertension hyperlipidemia, small bowel obstruction pulmonary fibrosis, cardiac stents diabetes reflux presents to the ER for evaluation after syncopal episode. Patient reports he
was here several days ago on 07/20 with vomiting and diarrhea he was treated and discharged home. Patient started vomiting again this morning was in the shower felt very nauseous and lightheaded and remembers waking up on the shower floor. He
coiled a shower and called his son. Patient complains of low back pain consistent nausea.
Past History
<MAILE Marcano - Last Filed: 07/25/24 15:24>
Past History
ED Past Medical History: CAD, GERD, HTN, Hypercholesterolemia, NIDDM, HI and Other (scleroderma, SBO,, PNA, Pulmonary fibrosis, Gastroporesis)
ED Past Surgical History: Cardiac (Stents X 6) and Cholecystectomy
Social History
Tobacco: Non-smoker
Alcohol: None
Drug: None
Personal:
Living: with family
Employment: Retired
Family History
Family History: CAD
Phy Exam
<MAILE Marcano - Last Filed: 07/25/24 15:24>
General Physical Exam
General Presentation: no apparent distress
General age: appears older than age
General Skin: warm and dry
General Habitus: elderly
General Mental: alert
General Hydration: dry mucous membranes
Cardiovascular Exam
Cardiovascular Exam: regular rate/rhythm, no murmur and normal peripheral pulses
Pulmonary Exam
Pulmonary Exam: lungs clear and no respiratory distress
Gastrointestinal Exam
Gastrointestinal Exam: non tender and soft
Musculoskeletal Exam
Musculoskeletal Exam: other (Tender throughout the lumbar region left lateral flank with lacy rash)
Skin Exam
Skin Exam: normal color and warm/dry
Course
<MAILE Marcano - Last Filed: 07/25/24 15:24>
Orders/Labs/Results
Orders:
Orders
07/24/24 07:44
Electrocardiogram (*1) Urgent
Reason for Study: Syncope
EKG- Treatment ONCE
07/24/24 08:19
IV Insert/Care/Rem.- Treatment PRN
0.9% Sodium Chloride 1000 ml [Nss] 1,000 ml IV BOLUS
Ondansetron Injectable [Zofran] 4 mg .ROUTE .STK-MED ONE
Ondansetron Injectable [Zofran] 4 mg IV NOW STA
07/24/24 08:[address] Cervical Spine W/o Iv Contr Urgent
Comment:
Reason For Exam: trauma
CT Head W/o Iv Contrast Urgent
Comment:
Reason For Exam: trauma
Cardiac Monitoring- Treatment ONCE
07/24/24 08:34
Complete Blood Count/With Diff Urgent
Comprehensive Metabolic Panel Urgent
07/24/24 09:06
Morphine Sulfate 2 mg IV NOW STA
Ondansetron Injectable [Zofran] 4 mg IV NOW STA
07/24/24 09:10
CT Abd/pel Without Iv Or Oral Urgent
Comment:
Reason For Exam: bruising to left flank + lumbar pain +trauma
07/24/24 Lunch
NPO
Allow oral meds: Yes
Allow clear liquids: No
NPO with Ice Chips: Yes
07/24/24 10:10
Morphine Sulfate 4 mg IV NOW STA
Ondansetron Injectable [Zofran] 4 mg IV NOW STA
07/24/24 12:28
Admit/Transfer Patient As Directed
Co-Sign Provider:
Level of Care: Inpatient admission
Assign to:: Telemetry
Physician / Group: James
Diagnosis: Small bowel obstruction ,syncope
Reason for Telemetry: Syncope
Date to Stop Telemetry: 07/26/24
Time to Stop Telemetry: 11:00
Reason for Hospitalization: see progress note
Expected length of stay greater than two midnights?: Yes
ELOS- Estimated Length of Stay in days: 4
I certify the patient meets the requirements for IP care: Yes
PRN Pain Medication Management As Directed
May give lesser potent ordered pain med per pt: Yes
preference::
Protocol:: Medication orders for pain may be administered in a
manner that supports deferring to patient preference
when the pt is:
- Requesting an ordered lesser potent pain medication.
Least to most potent pain medications are defined
as: acetaminophen < NSAID < tramadol < opioids
(morphine, oxycodone, hydromorphone).
- Requesting a lesser dose of the same medication IF
ORDERED.
- Requesting a less intrusive route of administration
if both routes are prescribed by the provider (PO <
IV).
07/24/24 12:29
Code Status As Directed
Resuscitation Status: Full Code
07/24/24 13:30
0.9% Sodium Chloride 1000 ml [Nss] 1,000 ml IV 125 mls/hr
HYDROmorphone [Dilaudid] 0.5 mg IV Q3HPRN PRN
Hydrocortisone Sod Succinate [Solu-Cortef] 25 mg IV Q12
Pyridostigmine [Mestinon] 30 mg PO BID
07/24/24 13:30
SURGICAL CONSULT Routine
Consulting Provider: Linson,Lior
Was physician already notified: Yes
Reason for consult: SBO
Norovirus by PCR Routine
SEBAS Source: Feces/Stool
Specimen Description:
STOOL [C difficile Antigen & Toxins] Routine
SEBAS Source: Feces/Stool
Specimen Description:
Stool Culture Routine
SEBAS Source: Feces/Stool
Specimen Description:
Stool For WBC Routine
SEBAS Source: Feces/Stool
Specimen Description:
Activity As Directed
Activity Level: As Tolerated
Bladder Scan As Directed
Follow Bladder Retention/Intermittent Cath Algorithm?: Yes
PRN if no void in __ hours: 6
Frequency: Per Retention Algorithm
If Bladder Scan Result >: 400
then:: Straight cath
I&O [Intake/ Output] As Directed
Frequency: q12h
Straight Cath As Directed
Frequency: Per Retention Algorithm
Additional Instructions: straight cath as needed per acute urinary retention algorithm for 24 hrs
Additional Instructions: for bladder scan greater than 400 mL
Pt Eval And Treat Routine
Activity Level: As Tolerated
DX Deep Vein Thrombosis Video Routine
07/24/24 18:00
Enoxaparin Sodium [Lovenox] 30 mg SC QPM
07/24/24 22:00
Aspirin Low Dose EC [Aspir Low (Enteric Coated)] 81 mg PO HS
07/25/24 07:19
Basic Metabolic Panel IN AM
CBC/No Diff [Complete Blood Count/No Diff] IN AM
07/25/24 08:00
Pantoprazole [Protonix IV] 40 mg IV DAILY
07/26/24 11:00
DC Protocol for Telemetry ONCE
Abnormal Lab Results
07/24/24
08:34
WBC 19.0 H 10^3/uL
(4.8-10.8)
RBC 4.22 L 10^6/uL
(4.70-6.10)
Hgb 10.4 L g/dL
(13.0-18.0)
Hct 33.6 L %
(39.0-52.0)
MCV 79.6 L fL
(80.0-94.0)
MCH 24.6 L pg
(27.0-31.0)
MCHC 31.0 L g/dL
(33.0-37.0)
RDW 17.2 H %
(11.5-14.5)
Abs Immat Gran (auto) 0.3 H 10^3/uL
(0-0.05)
Absolute Neuts (auto) 15.7 H 10^3/uL
(1.4-6.5)
Absolute Monos (auto) 1.7 H 10^3/uL
(0.1-0.6)
Immature Gran % 1.6 H %
(0-0.5)
Neutrophils % 82.5 H %
(42.2-75.2)
Lymphocytes % 6.1 L %
(20.5-51.1)
Chloride 97 L mmol/L
(98-107)
Carbon Dioxide 33 H mmol/L
(22-30)
BUN 35 H mg/dl
(9-20)
Creatinine 1.8 H mg/dL
(0.7-1.3)
Glucose 190 H mg/dl
(70-99)
Calcium 10.6 H mg/dl
(8.4-10.2)
07/24/24 08:34
07/24/24 08:34
Vital Signs
Initial and Last Documented VS:
Initial Vital Signs
Temp Resp BP
97.8 F 18 125/59
07/24/24 07:42 07/24/24 07:42 07/24/24 07:42
Last Documented Vital Signs
Temp Pulse Resp BP Pulse Ox
98.3 F 83 18 153/75 94
07/25/24 07:30 07/25/24 07:30 07/25/24 07:30 07/25/24 07:30 07/25/24 08:51
Fuel Handler consulted with Physician
Fuel Handler consulted with physician?: Yes
Name of Physician Consulted: alex
<Darin Levine, DO - Last Filed: 07/24/24 09:11>
Orders/Labs/Results
Orders:
Orders
07/24/24 07:44
Electrocardiogram (*1) Urgent
Reason for Study: Syncope
EKG- Treatment ONCE
07/24/24 08:19
IV Insert/Care/Rem.- Treatment PRN
0.9% Sodium Chloride 1000 ml [Nss] 1,000 ml IV BOLUS
Ondansetron Injectable [Zofran] 4 mg .ROUTE .STK-MED ONE
Ondansetron Injectable [Zofran] 4 mg IV NOW STA
07/24/24 08:[address]
CT Cervical Spine W/o Iv Contr Urgent
Comment:
Reason For Exam: trauma
CT Head W/o Iv Contrast Urgent
Comment:
Reason For Exam: trauma
Cardiac Monitoring- Treatment ONCE
07/24/24 08:34
Complete Blood Count/With Diff Urgent
Comprehensive Metabolic Panel Urgent
07/24/24 09:06
Morphine Sulfate 2 mg IV NOW STA
Ondansetron Injectable [Zofran] 4 mg IV NOW STA
07/24/24 09:10
CT Abd/pel Without Iv Or Oral Urgent
Comment:
Reason For Exam: bruising to left flank + lumbar pain +trauma
07/24/24 Lunch
NPO
Allow oral meds: Yes
Allow clear liquids: No
NPO with Ice Chips: Yes
07/24/24 10:10
Morphine Sulfate 4 mg IV NOW STA
Ondansetron Injectable [Zofran] 4 mg IV NOW STA
07/24/24 12:28
Admit/Transfer Patient As Directed
Co-Sign Provider:
Level of Care: Inpatient admission
Assign to:: Telemetry
Physician / Group: James
Diagnosis: Small bowel obstruction ,syncope
Reason for Telemetry: Syncope
Date to Stop Telemetry: 07/26/24
Time to Stop Telemetry: 11:00
Reason for Hospitalization: see progress note
Expected length of stay greater than two midnights?: Yes
ELOS- Estimated Length of Stay in days: 4
I certify the patient meets the requirements for IP care: Yes
PRN Pain Medication Management As Directed
May give lesser potent ordered pain med per pt: Yes
preference::
Protocol:: Medication orders for pain may be administered in a
manner that supports deferring to patient preference
when the pt is:
- Requesting an ordered lesser potent pain medication.
Least to most potent pain medications are defined
as: acetaminophen < NSAID < tramadol < opioids
(morphine, oxycodone, hydromorphone).
- Requesting a lesser dose of the same medication IF
ORDERED.
- Requesting a less intrusive route of administration
if both routes are prescribed by the provider (PO <
IV).
07/24/24 12:29
Code Status As Directed
Resuscitation Status: Full Code
07/24/24 13:30
0.9% Sodium Chloride 1000 ml [Nss] 1,000 ml IV 125 mls/hr
HYDROmorphone [Dilaudid] 0.5 mg IV Q3HPRN PRN
Hydrocortisone Sod Succinate [Solu-Cortef] 25 mg IV Q12
Pyridostigmine [Mestinon] 30 mg PO BID
07/24/24 13:30
SURGICAL CONSULT Routine
Consulting Provider: Lior Gallo
Was physician already notified: Yes
Reason for consult: SBO
Norovirus by PCR Routine
SEBAS Source: Feces/Stool
Specimen Description:
STOOL [C difficile Antigen & Toxins] Routine
SEBAS Source: Feces/Stool
Specimen Description:
Stool Culture Routine
SEBAS Source: Feces/Stool
Specimen Description:
Stool For WBC Routine
SEBAS Source: Feces/Stool
Specimen Description:
Activity As Directed
Activity Level: As Tolerated
Bladder Scan As Directed
Follow Bladder Retention/Intermittent Cath Algorithm?: Yes
PRN if no void in __ hours: 6
Frequency: Per Retention Algorithm
If Bladder Scan Result >: 400
then:: Straight cath
I&O [Intake/ Output] As Directed
Frequency: q12h
Straight Cath As Directed
Frequency: Per Retention Algorithm
Additional Instructions: straight cath as needed per acute urinary retention algorithm for 24 hrs
Additional Instructions: for bladder scan greater than 400 mL
Pt Eval And Treat Routine
Activity Level: As Tolerated
DX Deep Vein Thrombosis Video Routine
07/24/24 18:00
Enoxaparin Sodium [Lovenox] 30 mg SC QPM
07/24/24 22:00
Aspirin Low Dose EC [Aspir Low (Enteric Coated)] 81 mg PO HS
07/25/24 07:19
Basic Metabolic Panel IN AM
CBC/No Diff [Complete Blood Count/No Diff] IN AM
07/25/24 08:00
Pantoprazole [Protonix IV] 40 mg IV DAILY
07/26/24 11:00
DC Protocol for Telemetry ONCE
Abnormal Lab Results
07/24/24
08:34
WBC 19.0 H 10^3/uL
(4.8-10.8)
RBC 4.22 L 10^6/uL
(4.70-6.10)
Hgb 10.4 L g/dL
(13.0-18.0)
Hct 33.6 L %
(39.0-52.0)
MCV 79.6 L fL
(80.0-94.0)
MCH 24.6 L pg
(27.0-31.0)
MCHC 31.0 L g/dL
(33.0-37.0)
RDW 17.2 H %
(11.5-14.5)
Abs Immat Gran (auto) 0.3 H 10^3/uL
(0-0.05)
Absolute Neuts (auto) 15.7 H 10^3/uL
(1.4-6.5)
Absolute Monos (auto) 1.7 H 10^3/uL
(0.1-0.6)
Immature Gran % 1.6 H %
(0-0.5)
Neutrophils % 82.5 H %
(42.2-75.2)
Lymphocytes % 6.1 L %
(20.5-51.1)
Chloride 97 L mmol/L
(98-107)
Carbon Dioxide 33 H mmol/L
(22-30)
BUN 35 H mg/dl
(9-20)
Creatinine 1.8 H mg/dL
(0.7-1.3)
Glucose 190 H mg/dl
(70-99)
Calcium 10.6 H mg/dl
(8.4-10.2)
07/24/24 08:34
07/24/24 08:34
Vital Signs
Initial and Last Documented VS:
Initial Vital Signs
Temp Resp BP
97.8 F 18 125/59
07/24/24 07:42 07/24/24 07:42 07/24/24 07:42
Last Documented Vital Signs
Temp Pulse Resp BP Pulse Ox
98.3 F 83 18 153/75 94
12/27/24 07:30 07/25/24 07:30 07/25/24 07:30 07/25/24 07:30 07/25/24 08:51
<MAILE Marcano - Last Filed: 07/25/24 15:24>
MDM/Problems Addressed
MDM/Problems Addressed:
Patient is a 74-year-old male who presents to the ER today with nausea vomiting and syncopal episode. Patient was seen here several days ago for nausea and vomiting however started vomiting again this morning and while in the shower passed out. He
presented complaining of low back pain he is not on blood thinners but was unsure if he hit his head. CT head and cervical spine negative. Patient's primary complaint is low back pain and nausea. He was treated with nausea medicine here as well
as fluids. On exam he is tender throughout the lumbar area and had lacy rash to his left flank region. Patient evaluated by Dr. Levine CAT scan was done which does show acute burst fracture of T12 and bowel obstruction. Patient does have
history of valve structure in the past.
Patient does have a history of scleroderma and is dry on exam however his creatinine is increased from 1.5 on July 20 to 1.8 today. In addition his white count remains elevated 19,000 which is still increased from 07/20 of 15.8. Will discuss
with neurosurgery as well as general surgery
<MAILE Marcano - Last Filed: 07/25/24 15:24>
*Radiology
Radiology exam reviewed: radiology read reviewed
*Critical Care Note
Total Time (30-74mins, 75-104mins- exclusive of procedures): Not Applicable
<MAILE Marcano - Last Filed: 07/25/24 15:24>
Patient Management
Discussion with other providers: Other (neuro surg/general surg )
ED Attending Note
<MAILE Marcano - Last Filed: 07/25/24 15:24>
-
Portions of this chart may have been created with voice recognition software.� Occasional wrong word or��sound alike� substitutions may have occurred due to the inherent limitations of voice recognition software.
<Darin Levine, DO - Last Filed: 07/24/24 09:11>
ED Attending Note
Patient seen and examined by attending physician: Yes
ED Attending Note:
I reviewed and agree with history and treatment plan by Ольга Ramirez. My exam reveals 74-year-old male who appears in pain. Mild erythema left flank. Suspect vasovagal syncope. CT abdomen pelvis pending.
Discharge Plan
Departure
Patient Disposition: Admit
Date of Disposition: 07/24/24
Time of Disposition: 10:27
Admit to: Med/Surg
Presentation/result/management discussed w/ accepting MD/DO: Hospitalist
Patient with high blood pressure during this ER visit?: No
Covid-19: Not Applicable
Discharge Problem:
Bowel obstruction, Closed T12 fracture, Acute renal insufficiency, Acute dehydration
Interventions
Interventions:
*Risk Screen - Suicide Last Done: 07/24/24 13:47
*General Assessment Last Done: 07/24/24 07:42
*Neglect/Abuse Screening Last Done: 07/24/24 08:45
ED- Fall Risk Assessment Last Done: 07/24/24 08:45
*ED COVID-19 Vaccine History Last Done: 07/24/24 13:47
*Nursing Disposition Last Done: 07/24/24 12:52
ED- Cardiac Assessment Last Done: 07/24/24 08:45
ED- Neurological Assessment Last Done: 07/24/24 08:45
Discharge Date and Time
Discharge Date/Time: 07/24/24 13:26
[2024-07-24] MEDS: NSS 1000 IV ×3 (08:34→23:27)
[2024-07-24] MEDS: ZOFRAN 4 MG IV ×4 (08:35→15:08)
[2024-07-24 09:01] LABS: ALT (SGPT) 27 U/L (0-50); AST (SGOT) 27 U/L (17-59); Albumin 4.4 g/dl (3.5-5.0); Alkaline Phosphatase 82 U/L (38-126); Blood Urea Nitrogen 35 mg/dl (9-20); Calcium 10.6 mg/dl (8.4-10.2); Carbon Dioxide 33 mmol/L (22-30); Chloride 97 mmol/L (98-107); Estimated Creatinine Clearance 37 ml/min; Glucose 190 mg/dl (70-99); Potassium 4.2 mmol/L (3.5-5.1); Sodium 140 mmol/L (135-145); Total Bilirubin 0.8 mg/dl (0.2-1.3); Total Protein 6.8 g/dl (6.3-8.2); eGFR 39.25
[2024-07-24 09:10] LABS: Hematocrit 33.6 % (39.0-52.0); Hemoglobin 10.4 g/dL (13.0-18.0); Mean Corpuscular Hgb 24.6 pg (27.0-31.0); Mean Corpuscular Volume 79.6 fL (80.0-94.0); Mean Platelet Volume 9.3 fL (7.4-10.4); Platelet Count 348 10^3/uL (130-400); Red Blood Cell Count 4.22 10^6/uL (4.70-6.10); Red Cell Dist. Width 17.2 % (11.5-14.5)
[2024-07-24] MEDS: MORPHINE SULFATE 2 MG IV (09:10)
[2024-07-24] MEDS: MORPHINE SULFATE 4 MG IV (10:13)
[2024-07-24 10:39] LABS: % Basophils 0.3 % (0-2); % Eosinophils 0.4 % (0-6); % Immature Granulocytes 1.6 % (0-0.5); % Lymphocytes 6.1 % (20.5-51.1); % Monocytes 9.1 % (1.7-9.3); % Neutrophils 82.5 % (42.2-75.2); Absolute Basophils 0.1 10^3/uL (0-0.2); Absolute Eosinophils 0.1 10^3/uL (0-0.7); Absolute Immature Granulocytes 0.3 10^3/uL (0-0.05); Absolute Lymphocytes 1.2 10^3/uL (1.2-3.4); Absolute Monocytes 1.7 10^3/uL (0.1-0.6); Absolute Neutrophils 15.7 10^3/uL (1.4-6.5); Nucleated Red Blood Cells % 0 % (-)
--- NOTE | 2024-07-24 12:39 | HPS.HSE ---
Family Physician
-
Family Physician: Tamara Bell
Chief Complaint
-
Acute nausea vomiting diarrhea and syncope
History of Present Illness
Patient states since Sunday he started to have nausea vomiting. He came here to ER 07/20 and was treated symptomatically and discharged home. He could not eat anything or drink much since Sunday. He tried small amounts of food on [place] but
could not eat much.
He has abdominal pain which comes in waves. He had no bowel movement since Sunday then had diarrhea today and he threw up 3 times today. No fever but he was feeling chills.
With his GI symptoms he was feeling dizzy and woozy. He felt at times he might pass out. Today he was in the shower and then he passed out with complete loss of consciousness and found himself on the floor of the shower room. Since the fall he
has excruciating back pain which is localized to the back worse with minimal movement. No radiation to the legs.
He is chronic back pains and vertebral fractures. He had 3 epidural injections in the past. Currently not requiring any pain medication at home for that.
No prior history of syncope. Denies any prior history of arrhythmia. No palpitations.
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 Never needed surgery. He is scleroderma and SIBO and is on rifaximin. He does not think this feels like SIBO.
No recent antibiotics. No recent travel. No contact with sick people.
Medical History
Past Medical History
Past Medical History: Reports Other
Additional Past Medical History:
SIBO
ASCVD
GERD
Hypertension
DM-II
Scleroderma
Past Surgical History: Reports Other
Additional Past Surgical History:
Cardiac stent x6
Cholecystectomy
Social History
Unable to obtain full social history at this time due to: Dementia
Tobacco: Non-smoker
Alcohol: None
Drug: None
Personal:
Family History
Family History: Not pertinent
Allergies / Home Medications
Allergies reflects when Allergies were last updated in [facility].
Home Medications with original date entered in [facility]
Allergy/Medication List:
Allergies
Allergy/AdvReac Type Severity Reaction Status Date / Time
No Known Allergies Allergy Verified 12/16/23 20:32
Home Medications
losartan 50 mg tablet 50 mg PO HS Blood pressure 06/19/20
aspirin 81 mg tablet,delayed release 81 mg PO HS Blood clot prevention/tx 06/28/20
atorvastatin 80 mg tablet 80 mg PO DAILY High cholesterol 06/28/20
nifedipine 30 mg tablet,extended release 30 mg PO HS Blood pressure 06/28/20
glimepiride 2 mg tablet 2 mg PO DAILY Diabetes 02/08/22
prednisone 5 mg tablet 5 mg PO DAILY SCLERODERMA 02/08/22
pyridostigmine bromide 60 mg tablet 30 mg PO BID@0730,1730 Gastrointestinal Issue 03/19/23
acetaminophen 500 mg tablet (Tylenol Extra Strength) 1,000 mg PO DAILYPRN PRN MILD PAIN 12/12/23
prucalopride 2 mg tablet (Motegrity) 2 mg PO HS Constipation 12/12/23
rifaximin 550 mg tablet (Xifaxan) 225 mg PO DAILY Gastrointestinal Issue 12/12/23
pantoprazole 40 mg tablet,delayed release (Protonix) 40 mg PO DAILY #1 tab 12/18/23
*awaiting med rec confirmation
Review of Systems
-
A 12 point ROS was completed and negative except as noted: Yes
Physical Exam
Vital Signs
Vital Signs
Temp Pulse Resp BP Pulse Ox
97.8 F 84 14 135/62 98
07/24/24 07:42 07/24/24 12:15 07/24/24 12:15 07/24/24 12:00 07/24/24 12:00
Physical Exam
General: No Comfortable
HEENT: No Moist mucous membranes
Respiratory: Clear (anteriorly) and Non Labored Respirations; No Accessory Resp Muscle Use
Cardiac: S1/S2 and Regular Rhythm; No Tachycardia
GI: Soft, Non Tender, Normal Bowel Sounds and Distended (mild)
Neuro: AO x 3; No No Motor Deficits (difficult exam due to severe back pain. Distally in ankle power 5/5 ;UE 5/5)
Psych: Calm; No Confused or Agitated
Laboratory Results
-
07/24/24 08:34
07/24/24 08:34
Laboratory Results
Total Bilirubin 0.8 mg/dl (0.2-1.3) 07/24/24 08:34
AST 27 U/L (17-59) 07/24/24 08:34
ALT 27 U/L (0-50) 07/24/24 08:34
Alkaline Phosphatase 82 U/L (38-126) 07/24/24 08:34
Data Reviewed
-
Lab Data: Labs Reviewed by me
Impression/Plan
-
Syncope-suspect secondary to dehydration with ongoing GI symptoms . EKG with sinus rhythm and nonspecific ST-T changes. Not on any steve blocking agents. Last known echo in April 2023 showed EF of 60 to 65% no significant valvular heart
disease. Mild MR was noted. Following telemetry. Is hemodynamically stable currently.
Fall from syncope-patient had a CT of the head and cervical spine without any acute pathology. Abdomen pelvis CT shows- Acute burst fracture of T12 as above. Minimal fracture fragment retropulsion, no associated high-grade narrowing of the canal.
He is in significant pain from the fracture. No sciatica. No lower extremity strength issue. Case was discussed by ER with neurosurgery who recommended continued symptomatic treatment. Start on IV pain regimen and follow. Consult PT
Acute nausea vomiting, abdominal pain and loose stools.-CT suggests small bowel obstruction with transition in the right lower quadrant. He has a history of scleroderma with SIBO-unclear if symptomatology is secondary to SIBO or small bowel
obstruction. Will consult surgery. Keep n.p.o. except for meds. Start on IV fluids and follow. In view of loose stool associate with his symptoms we will check for norovirus, stool culture, C. difficile, WBC.
Scleroderma with SIBO-continue with rifaximin. On chronic prednisone-will switch to stress dose steroids
[place]-suspect secondary to GI volume losses. Start on IV fluids and follow. Check a bladder scan. Hold losartan.
History of CAD status post prior coronary stents-continue with aspirin.
Full code
--- NOTE | 2024-07-24 12:46 | CON.GS ---
Consultation
-
Requesting Provider: James
Performing Provider: Cleo
Reason for Consultation: SBO
Medical History
-
Chief Complaint: Back pain
History of Present Illness:
74M known to our service from multiple prior admits for chronic dysmotility a/w scleroderma and SBO, always managed here non-op in the past and typically has a 2-3 day course. He reports over the past 5 days he has not been able to tolerate PO due
to nausea. He was seen here 4 days ago for vomiting and diarrhea and was MO'ed home. This am he had recurrent vomiting and experienced a fall in the shower possibly due to syncope. Imaging shows acute T12 burst fx. He denies abd pain, c/o severe
lower back pain.
Past Medical History
Past Medical History: Other (CAD, GERD, HTN, Hypercholesterolemia, NIDDM, [place] and Other (scleroderma, SBO,, PNA, Pulmonary fibrosis, Gastroporesis))
Past Surgical History: Other (Cardiac (Stents X 6) and Cholecystectomy)
Social History
Tobacco: Non-Smoker
Alcohol: None
Drug: None
Personal:
Living: With Family
Employment: Retired
Family History
Family History: Reviewed & Noncontributory
Allergies / Home Medications
Allergy/AdvReac Type Severity Reaction Status Date / Time
No Known Allergies Allergy Verified 07/24/24 07:44
�Medication �Instructions �Recorded �Confirmed �Type
losartan 50 mg tablet 50 mg PO HS Blood pressure 06/19/20 07/24/24 History
aspirin 81 mg tablet,delayed 81 mg PO HS Blood clot 06/28/20 07/24/24 History
release prevention/tx
atorvastatin 80 mg tablet 80 mg PO DAILY High cholesterol 06/28/20 07/24/24 History
nifedipine 30 mg tablet,extended 30 mg PO HS Blood pressure 06/28/20 07/24/24 History
release
glimepiride 2 mg tablet 2 mg PO DAILY Diabetes 02/08/22 07/24/24 History
prednisone 5 mg tablet 5 mg PO DAILY SCLERODERMA 02/08/22 07/24/24 History
pyridostigmine bromide 60 mg tablet 30 mg PO BID Gastrointestinal Issue 03/19/23 07/24/24 History
prucalopride 2 mg tablet 2 mg PO HS Constipation 12/12/23 07/24/24 History
(Motegrity)
rifaximin 550 mg tablet (Xifaxan) 225 mg PO DAILY Gastrointestinal 12/12/23 07/24/24 History
Issue
pantoprazole 40 mg tablet,delayed 40 mg PO DAILY GERD 02/29/24 07/24/24 History
release (Protonix)
ondansetron 4 mg disintegrating 4 mg PO Q8H PRN nausea and 07/21/24 07/24/24 Rx
tablet vomiting #10 tabs
Review of Systems
-
A 10 point review of systems was completed, and was negative except as per HPI.
Physical Exam
Vital Signs
Temp Pulse Resp BP Pulse Ox
97.8 F 84 14 135/62 98
07/24/24 07:42 07/24/24 12:15 07/24/24 12:15 07/24/24 12:00 07/24/24 12:00
07/23/24 07/24/24 07/25/24
06:59 06:59 06:59
Actual Weight 70.8 kg
Body Mass Index (BMI) 21.8
Lab Results
07/24/24 08:34
07/24/24 08:34
WBC 19.0 10^3/uL (4.8-10.8) H 07/24/24 08:34
Hgb 10.4 g/dL (13.0-18.0) L 07/24/24 08:34
Hct 33.6 % (39.0-52.0) L 07/24/24 08:34
Plt Count 348 10^3/uL (130-400) D 12/26/24 08:34
Abs Immat Gran (auto) 0.3 10^3/uL (0-0.05) H 07/24/24 08:34
Neutrophils % 82.5 % (42.2-75.2) H 07/24/24 08:34
Physical Exam
General: Other (mild distress)
GI: Soft, Non Tender and Non Distended
Skin: Warm and Dry
Neuro: AO x 3
Psych: Calm
Data Reviewed
-
CT Scan: Image Personally Visualized and interpreted, Report Reviewed by me, Discussed with Physician and Discussed with Patient
Labs: Labs Reviewed by me and Discussed with Patient
Old Records: Reviewed
Assessment / Plan
-
74M with acute T12 burst fx 2/2 fall from standing; known hx of chronic GI dysmotility with recent exacerbation
AFVSS, belly is soft and nt
WBC 19K
CT with dilated sb loops (mild) apparent RLQ transition point at distal ileum, air and stool throughout colon
Agree with admission
NPO/IVF for now
Await Ortho recs re: vertebral fx
PRN anti-emetics
PRN pain meds
DVT ppx
Will follow
[2024-07-24] MEDS: DILAUDID 0.5 MG IV ×2 (14:02→20:55)
[2024-07-24] MEDS: MESTINON 30 MG PO (15:04)
[2024-07-24] MEDS: SOLU-CORTEF 25 MG IV ×2 (15:07→20:46)
--- NOTE | 2024-07-24 15:13 | CON.NS ---
Consultation
-
Date/Time Consultation Performed: 07/24/2024; 15:15
Performing Provider: Elisa
Chief Complaint
History of Present Illness
This is a neurosurgical consultation on a 74-year-old gentleman who presents with small bowel obstruction. He reports approximately 4-day history of nausea, vomiting, diarrhea. He had presented to the emergency room on 07/20 and was treated
symptomatically and discharged home. Patient was in the shower this a.m., and passed out with complete loss of consciousness and found himself on the floor of the shower. He had immediate onset of significant back pain. He has a history of
chronic back pain and vertebral fractures. He had a CT of the abdomen/pelvis, that revealed a T12 fracture. Neurosurgery consulted. Patient is on chronic steroids for history of scleroderma.
Patient seen and examined. Son is at bedside. Patient complains of severe back pain, mechanical in nature. Denies any numbness, tingling, weakness in lower extremities. Has had history of chronic back pain, status post epidural steroid
injections, followed by [facility], which has helped.
Review of Systems
-
10 point review of systems including constitutional, ENT, cardiovascular, respiratory, GI, , endocrinologic, hematologic, neurologic, musculoskeletal, was performed, was negative, except for stated in HPI.
Medication and Allergies
Home Medications
Home Medications
�Medication �Instructions �Recorded
losartan 50 mg tablet 50 mg PO HS Blood pressure 06/19/20
aspirin 81 mg tablet,delayed 81 mg PO HS Blood clot 06/28/20
release prevention/tx
atorvastatin 80 mg tablet 80 mg PO DAILY High cholesterol 06/28/20
nifedipine 30 mg tablet,extended 30 mg PO HS Blood pressure 06/28/20
release
glimepiride 2 mg tablet 2 mg PO DAILY Diabetes 02/08/22
prednisone 5 mg tablet 5 mg PO DAILY SCLERODERMA 02/08/22
pyridostigmine bromide 60 mg tablet 30 mg PO BID Gastrointestinal Issue 03/19/23
prucalopride 2 mg tablet 2 mg PO HS Constipation 12/12/23
(Motegrity)
rifaximin 550 mg tablet (Xifaxan) 225 mg PO DAILY Gastrointestinal 12/12/23
Issue
pantoprazole 40 mg tablet,delayed 40 mg PO DAILY GERD 02/29/24
release (Protonix)
ondansetron 4 mg disintegrating 4 mg PO Q8H PRN nausea and 07/21/24
tablet vomiting #10 tabs
Allergies
Allergies
Allergy/AdvReac Type Severity Reaction Status Date / Time
No Known Allergies Allergy Verified 07/24/24 07:44
Physical Exam
-
Exam:
Awake, alert, mild to moderate distress
Cranial nerves II through XII are grossly intact.
Motor: 5/5 strength bilaterally in lower extremities in all muscle groups.
Scleroderma contractures of upper extremities noted.
Head is normocephalic atraumatic
Neck is supple
Breathing nonlabored
Cardiac: Regular rate
Abdomen is nondistended
Extremities are warm
CT of the abdomen/pelvis performed on 07/24/2024 was reviewed. Images were personally reviewed and interpreted by me. There is evidence of a fracture through the vertebral body of T12. There is approximately 25% height loss. Minimal retropulsion
is seen. No obvious evidence of spinal canal compromise is seen. Fractures do not extend to the posterior column.
Problems
-
Problem Status Onset Code
Acute dehydration E86.0
Acute renal insufficiency N28.9
Closed T12 fracture S22.089A
Bowel obstruction K56.609
Assessment / Plan
-
This is a 74-year-old gentleman on chronic steroids, for scleroderma, who presents with small bowel obstruction, and syncopal fall this a.m. Imaging demonstrates T12 fracture without obvious retropulsion. Patient is neurologically intact in lower
extremities.
Recommend TLSO brace when patient is ambulating/weightbearing.
Pain control, anti-inflammatories, muscle relaxants, topical patches.
Patient will need brace immobilization x 10 to 12 weeks.
Patient should follow-up in the office in approximately 10 to 12 weeks.
Needs AP lateral x-rays to be done just prior.
If pain is refractory to conservative management, consider interventional radiology consultation for kyphoplasty in house.
Patient can go home per my specialty: No
[2024-07-24] MEDS: XIFAXAN PO (15:29)
[2024-07-24] MEDS: NSS (PRESERVATIVE FREE) 10 ML IV (17:36)
[2024-07-24] MEDS: PROTONIX IV 40 MG IV (17:36)
[2024-07-24] MEDS: LOVENOX 30 MG SC (17:37)
[2024-07-24 18:11] LABS: Glucose - Point of Care 147 mg/dl (70-99)
[2024-07-24] MEDS: MESTINON PO ×2 (20:47→20:50)
[2024-07-24] MEDS: ASPIR LOW (ENTERIC COATED) 81 MG PO (23:28)
[2024-07-25 00:08] LABS: Glucose - Point of Care 132 mg/dl (70-99)
[2024-07-25] MEDS: DILAUDID 0.5 MG IV ×5 (01:30→18:13)
[2024-07-25 03:02] VITALS: BP 134/68
[2024-07-25 05:15] LABS: Glucose - Point of Care 96 mg/dl (70-99)
[2024-07-25 07:30] VITALS: BP 153/75
[2024-07-25] MEDS: NSS 1000 IV ×2 (07:41→14:31)
[2024-07-25] MEDS: SOLU-CORTEF 25 MG IV ×2 (09:12→19:45)
[2024-07-25] MEDS: PROTONIX IV 40 MG IV (09:14)
[2024-07-25] MEDS: MESTINON 30 MG PO ×2 (09:25→20:38)
[2024-07-25] MEDS: XIFAXAN 275 MG PO (09:26)
[2024-07-25 09:41] LABS: Hematocrit 29.2 % (39.0-52.0); Hemoglobin 8.8 g/dL (13.0-18.0); Mean Corp Hgb Conc. 30.1 g/dL (33.0-37.0); Mean Corpuscular Hgb 24.5 pg (27.0-31.0); Mean Corpuscular Volume 81.3 fL (80.0-94.0); Mean Platelet Volume 9.5 fL (7.4-10.4); Platelet Count 292 10^3/uL (130-400); Red Blood Cell Count 3.59 10^6/uL (4.70-6.10); Red Cell Dist. Width 17.4 % (11.5-14.5); White Blood Cell Count 10.8 10^3/uL (4.8-10.8)
[2024-07-25 09:51] LABS: Blood Urea Nitrogen 27 mg/dl (9-20); Calcium 8.5 mg/dl (8.4-10.2); Carbon Dioxide 23 mmol/L (22-30); Chloride 108 mmol/L (98-107); Estimated Creatinine Clearance 51 ml/min; Glucose 88 mg/dl (70-99); Potassium 4.3 mmol/L (3.5-5.1); Sodium 141 mmol/L (135-145); eGFR 58.01
[2024-07-25 11:28] LABS: Glycohemoglobin (HgbA1c) 6.3 % (4.0-5.6)
--- NOTE | 2024-07-25 11:38 | W.PN.GS2 ---
Today's Communication / Plan
-
Clears
Assessment / Plan
-
This is a 74-year-old male with a chronic dysmotility secondary to scleroderma and recurrent partial small bowel obstructions that have resolved with nonoperative management here in the setting with a recurrence in the setting of a T12 burst
fracture.
Activity per neurosurgery. Agree with brace.
Okay for clears for now as patient is passing flatus and a little bit less distended than yesterday.
General surgery will continue to follow with serial abdominal exams.
Patient and sons who are at bedside agreeable to plan of care above.
Time Spent
Total Time Spent with Patient (in minutes): 20
Subjective Data
-
Date of Service: July 25, 2024
Interval Events:
No acute events overnight. Slept well. Pain Controlled. Denies Nausea/Vomiting, +bowel function, but no bowel movements. Feels less distended.
Objective Data
-
Intake and Output
07/24/24 07/25/24 07/26/24
06:59 06:59 06:59
Intake Total 1750 / 1750
Output Total 820 / 820
Balance 930 / 930
Intake:
Oral fluids 0 / 0
IV fluids (Total) 1750 / 1750
Output:
Urine, Voided 820 / 820
Vital Signs
Temp Pulse Resp BP Pulse Ox
98.3 F 83 18 153/75 92
07/25/24 07:30 07/25/24 07:30 07/25/24 07:30 07/25/24 07:30 07/25/24 07:30
Lab Results
07/25/24 07:19
07/25/24 07:19
Calcium 8.5 mg/dl (8.4-10.2) D 07/25/24 07:19
Total Bilirubin 0.8 mg/dl (0.2-1.3) 07/24/24 08:34
AST 27 U/L (17-59) 07/24/24 08:34
ALT 27 U/L (0-50) 07/24/24 08:34
Alkaline Phosphatase 82 U/L (38-126) 07/24/24 08:34
Total Protein 6.8 g/dl (6.3-8.2) 07/24/24 08:34
Albumin 4.4 g/dl (3.5-5.0) 07/24/24 08:34
Physical Exam
-
GENERAL/NEURO: Awake, Alert, no distress
CHEST: Unlabored breathing on RA
ABDOMEN: Soft, mildly tender, mildly distended.
[2024-07-25 12:17] LABS: Glucose - Point of Care 136 mg/dl (70-99)
--- NOTE | 2024-07-25 14:56 | W.PN.HOSP.TC ---
Today's Communication/Plan
-
PT/OT
pain control
brace ordered
clears
apprec all consultants
Assessment / Plan
Assessment / Plan
pt is a 74 year old male
SBO--apprec gen surgery--now on clears--cont IVF today
Syncope--suspect secondary to dehydration with ongoing GI symptoms . EKG with sinus rhythm and nonspecific ST-T changes. Not on any steve blocking agents. Last known echo in April 2023 showed EF of 60 to 65% no significant valvular heart
disease. Mild MR was noted
Fall from syncope--patient had a CT of the head and cervical spine without any acute pathology. Abdomen pelvis CT shows- Acute burst fracture of T12 as above. Minimal fracture fragment retropulsion, no associated high-grade narrowing of the canal.
He is in significant pain from the fracture. No sciatica. No lower extremity strength issue--apprec neurosurgery, TLSO brace ordered when patient is ambulating/weightbearing-- cont pain control--PT/OT
Scleroderma with SIBO--continue with rifaximin. On chronic prednisone--will switch to stress dose steroids
[place]--suspect secondary to GI volume losses-- cont IVF-- Holding losartan.
anemia--chronic--lower than baseline--? dilutional--no acute bleeding (11.6 on 07/20--now down to 8.8)
History of CAD status post prior coronary stents-continue with aspirin.
Full code
Anticipated Discharge: > 48 hours
Subjective/Interval History
-
Date of Service: July 25, 2024
pt in pain--working with therapy
Objective Data
-
Labs:
Laboratory Results
07/25/24
07:19
WBC 10.8
Hgb 8.8 L
Hct 29.2 L
Plt Count 292
Sodium 141
Potassium 4.3
Chloride 108 H
Carbon Dioxide 23
BUN 27 H
Creatinine 1.3
Glucose 88
Calcium 8.5 D
Vital Signs:
max temp for 24 hours
07/25/24
07:30
Temp 98.3 F
Vital Signs
Temp Pulse Resp BP Pulse Ox
98.3 F 83 18 153/75 92
07/25/24 07:30 07/25/24 07:30 07/25/24 07:30 07/25/24 07:30 07/25/24 07:30
I&O
07/24/24 07/25/24 07/26/24
06:59 06:59 06:59
Intake Total 1750 / 1750
Output Total 820 / 820
Balance 930 / 930
Review of Systems
-
All other systems: Reviewed and negative
Musculoskeletal: Reports Other (back pain)
Physical Exam
-
General: Well Developed, Well Nourished and Pain
HEENT: Normocephalic and Atraumatic; Negative Oxygen
Respiratory: Clear to Auscultation; Negative Wheezes or Rhonchi
Cardiac: Regular Rhythm and S1/S2; Negative Murmur
GI: Soft, Nontender, Nondistended and Normal Bowel Sounds
Musculoskeletal: No Clubbing, No Cyanosis, No Edema and Other (brace in place)
Neuro: Awake and Alert
Psych: Calm
[2024-07-25 15:00] VITALS: BP 138/68; BP 145/83; PULSE 85; O2SAT 99
--- NOTE | 2024-07-25 16:11 | CM ---
Pt seen bedside. Initial assessment completed.
Pt reports that he lives alone in a 2STH- 3 steps to enter from the garage
Pt is independent, denies DME for ambulating or daily functioning
Pt is currently on 2L O2, pt does not use O2 at home
Pt denies SNF, but did engage in OP therapy for his back
Pt denies VN/PT services in the past
Address, point of contacts and insurance verified
PCP: Dr. Tamara Bell
Pharmacy: [facility]
PT/OT evaluated pt and is recommending acute rehab at this time. Per PT, pt could be a good candidate for [facility].
Discussed rehab recommendation w/ pt. Pt is agreeable to rehab and agreeable for [facility] if they deem him appropriate.
[facility] referral completed in [facility], await determination
Updated hospitalist on the floor
Physiatry assessment pending
Will need auth
Plan: Acute Rehab; [facility] if meets criteria
[2024-07-25 16:45] LABS: Glucose - Point of Care 124 mg/dl (70-99)
[2024-07-25] MEDS: LOVENOX 30 MG SC (18:12)
[2024-07-25 19:00] VITALS: BP 150/61
[2024-07-25] MEDS: ZOFRAN 4 MG IV (19:43)
[2024-07-25] MEDS: TYLENOL 650 MG PO (20:38)
[2024-07-25 21:35] LABS: COVID-19 Antigen Negative (Negative)
[2024-07-25 21:58] LABS: Urine Albumin Trace (Neg - Trace); Urine Bilirubin Negative (Negative); Urine Character Clear (Clear); Urine Color Yellow; Urine Glucose Negative (Negative); Urine Ketone Trace (Negative); Urine Leukocyte Negative (Negative); Urine Nitrite Negative (Negative); Urine Occult Blood Negative (Negative); Urine Urobilinogen Negative (Neg - 1+)
[2024-07-25] MEDS: ASPIR LOW (ENTERIC COATED) 81 MG PO (22:10)
[2024-07-25 23:00] VITALS: BP 142/64
[2024-07-26] VITALS (8 sets, daily range): BP systolic 138–150; BP diastolic 60–77
[2024-07-26 00:19] LABS: Glucose - Point of Care 134 mg/dl (70-99)
--- NOTE | 2024-07-26 01:46 | PTCARENOTE ---
Pt HR noted to be in the 120's at rest at 2015. Pulse ox 84% on RA, pt nauseated and very warm to touch. Rectal temp 102.2. 3L NC applied, sat up to 93%. Zofran given for nausea. 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 Tylenol given and ice packs
provided. Temp down to 99.1 and HR now in the 80's. Pt states he feels much better although does continue with some nausea and back pain. Denies need for pain medication. Sleeping at present
[2024-07-26] MEDS: NSS 1000 IV ×2 (01:53→21:39)
[2024-07-26] MEDS: DILAUDID 0.5 MG IV ×3 (04:26→18:03)
[2024-07-26 07:35] LABS: Glucose - Point of Care 103 mg/dl (70-99)
[2024-07-26] MEDS: NOVOLOG FLEXPEN-LOW RESISTANCE SC ×3 (08:15→17:23)
[2024-07-26 08:22] LABS: Blood Urea Nitrogen 23 mg/dl (9-20); Calcium 7.7 mg/dl (8.4-10.2); Carbon Dioxide 23 mmol/L (22-30); Chloride 108 mmol/L (98-107); Estimated Creatinine Clearance 60 ml/min; Glucose 91 mg/dl (70-99); Magnesium 1.7 mg/dl (1.6-2.3); Potassium 4.1 mmol/L (3.5-5.1); Sodium 139 mmol/L (135-145); eGFR > 60.00
[2024-07-26] MEDS: XIFAXAN 275 MG PO (08:58)
[2024-07-26] MEDS: MESTINON 30 MG PO ×2 (09:00→21:36)
[2024-07-26] MEDS: NSS (PRESERVATIVE FREE) 10 ML IV (09:00)
[2024-07-26] MEDS: PROTONIX IV 40 MG IV (09:01)
[2024-07-26] MEDS: SOLU-CORTEF 25 MG IV ×2 (09:01→21:37)
[2024-07-26 09:05] LABS: Hematocrit 23.6 % (39.0-52.0); Hemoglobin 7.5 g/dL (13.0-18.0); Mean Corp Hgb Conc. 31.8 g/dL (33.0-37.0); Mean Corpuscular Hgb 24.8 pg (27.0-31.0); Mean Corpuscular Volume 78.1 fL (80.0-94.0); Mean Platelet Volume 9.8 fL (7.4-10.4); Platelet Count 211 10^3/uL (130-400); Red Blood Cell Count 3.02 10^6/uL (4.70-6.10); Red Cell Dist. Width 17.5 % (11.5-14.5); White Blood Cell Count 8.3 10^3/uL (4.8-10.8)
[2024-07-26 11:50] LABS: Glucose - Point of Care 149 mg/dl (70-99)
[2024-07-26] MEDS: NSS IV (13:00)
--- NOTE | 2024-07-26 13:39 | W.PN.GS2 ---
Today's Communication / Plan
-
Clear liquids
Assessment / Plan
-
This is a 74-year-old male with a chronic dysmotility secondary to scleroderma and recurrent partial small bowel obstructions that have resolved with nonoperative management here in the setting with a recurrence in the setting of a T12 burst
fracture.
Fever overnight to 102.2 with tachycardia, no leukocytosis
Infectious work up thus far negative
Passing flatus, tolerating clears without nausea but with no vomiting and some persistent distention. Overall, not feeling much improvement.
Activity/brace as per neurosurgery.
Infectious work up as per hospitalist team
Continue clears
General surgery will continue to follow with serial abdominal exams.
Subjective Data
-
Date of Service: July 26, 2024
Patient seen and examined at bedside. Reports a fever overnight and feeling quite washed out. Denies n/v. Passing a little flatus. Not much appetite.
Objective Data
-
Intake and Output
07/25/24 07/26/24 07/27/24
06:59 06:59 06:59
Intake Total 1750 / 1750 480 / 480
Output Total 820 / 820 1225 / 1225
Balance 930 / 930 -745 / -745
Intake:
Oral fluids 0 / 0 480 / 480
IV fluids (Total) 1750 / 1750
Output:
Urine, Voided 820 / 820 1225 / 1225
Vital Signs
Temp Pulse Resp BP Pulse Ox
98.6 F 81 18 150/77 98
07/26/24 11:43 07/26/24 11:43 07/26/24 11:43 07/26/24 11:43 07/26/24 11:43
Lab Results
07/26/24 07:25
07/26/24 07:25
Calcium 7.7 mg/dl (8.4-10.2) L 07/26/24 07:25
Magnesium 1.7 mg/dl (1.6-2.3) 07/26/24 07:25
Total Bilirubin 0.8 mg/dl (0.2-1.3) 07/24/24 08:34
AST 27 U/L (17-59) 07/24/24 08:34
ALT 27 U/L (0-50) 07/24/24 08:34
Alkaline Phosphatase 82 U/L (38-126) 07/24/24 08:34
Total Protein 6.8 g/dl (6.3-8.2) 07/24/24 08:34
Albumin 4.4 g/dl (3.5-5.0) 07/24/24 08:34
Physical Exam
-
GENERAL/NEURO: Awake, Alert, no distress
CHEST: Unlabored breathing on RA
ABDOMEN: Soft, nontender, mildly distended.
--- NOTE | 2024-07-26 14:33 | W.PN.HOSP.TC ---
Today's Communication/Plan
-
transfuse 1 unit pRBC
? need for GI w/u
Assessment / Plan
Assessment / Plan
pt is a 74 year old male
SBO--apprec gen surgery--now on clears--advance diet per surgery
Syncope--suspect secondary to dehydration with ongoing GI symptoms--although symptomatic anemia could contribute--HGB 7.5-- EKG with sinus rhythm and nonspecific ST-T changes. Not on any steve blocking agents. Last known echo in April 2023
showed EF of 60 to 65% no significant valvular heart disease. Mild MR was noted
Fall from syncope--patient had a CT of the head and cervical spine without any acute pathology. Abdomen pelvis CT shows- Acute burst fracture of T12 as above. Minimal fracture fragment retropulsion, no associated high-grade narrowing of the canal.
He is in significant pain from the fracture. No sciatica. No lower extremity strength issue--apprec neurosurgery, TLSO brace ordered when patient is ambulating/weightbearing-- cont pain control--PT/OT
fever--last night--await cultures
Scleroderma with SIBO--continue with rifaximin. On chronic prednisone--will switch to stress dose steroids
[place]--suspect secondary to GI volume losses-- cont IVF-- Holding losartan.
anemia--chronic--lower than baseline--? dilutional--no acute bleeding noted--HGB now down to 7.5--will transfuse 1 unit pRBC today--(11.6 on 07/20)
History of CAD status post prior coronary stents-continue with aspirin.
Full code
Anticipated Discharge: > 48 hours
Subjective/Interval History
-
Date of Service: July 26, 2024
pt feels very weak and fatigued--had fever last night
Objective Data
-
Labs:
Laboratory Results
07/26/24
07:25
WBC 8.3
Hgb 7.5 L
Hct 23.6 L
Plt Count 211 D
Sodium 139
Potassium 4.1
Chloride 108 H
Carbon Dioxide 23
BUN 23 H
Creatinine 1.1
Glucose 91
Calcium 7.7 L
Vital Signs:
max temp for 24 hours
07/25/24
20:30
Temp 102.2 F H
Vital Signs
Temp Pulse Resp BP Pulse Ox
98.6 F 81 18 150/77 98
07/26/24 11:43 07/26/24 11:43 07/26/24 11:43 07/26/24 11:43 07/26/24 11:43
I&O
07/25/24 07/26/24 07/27/24
06:59 06:59 06:59
Intake Total 1750 / 1750 480 / 480
Output Total 820 / 820 1225 / 1225
Balance 930 / 930 -745 / -745
Review of Systems
-
Constitutional: Reports Fatigue
Neuro: Reports Weakness
Physical Exam
-
General: Well Developed, Well Nourished and No Apparent Distress
HEENT: Normocephalic and Atraumatic
Respiratory: Clear to Auscultation; Negative Wheezes or Rhonchi
Cardiac: Regular Rhythm and S1/S2; Negative Murmur
GI: Soft, Nontender, Nondistended and Normal Bowel Sounds
Musculoskeletal: No Clubbing, No Cyanosis and No Edema
Skin: Other (scleroderma skin changes)
Psych: Calm
[2024-07-26 16:15] LABS: Anisocytosis 1+
[2024-07-26 16:16] LABS: Microcytosis 2+
[2024-07-26 16:17] LABS: Hypochromasia 1+; Ovalocytes 1+
[2024-07-26 16:18] LABS: Burr Cells 1+; Normal RBC Morphology No
[2024-07-26 16:33] LABS: Iron < 20 ug/dl (49-181); Total Iron Binding Capacity 278 ug/dl (261-462)
[2024-07-26 16:47] LABS: Glucose - Point of Care 144 mg/dl (70-99)
[2024-07-26 17:11] LABS: Ferritin 45.1 ng/ml (17.9-464.0)
[2024-07-26] MEDS: LOVENOX 30 MG SC (18:04)
[2024-07-26] MEDS: TYLENOL 650 MG PO (18:33)
[2024-07-26 21:21] LABS: Glucose - Point of Care 134 mg/dl (70-99)
[2024-07-26] MEDS: ASPIR LOW (ENTERIC COATED) 81 MG PO (21:37)
[2024-07-27 03:00] VITALS: BP 154/78
[2024-07-27 05:57] LABS: Hematocrit 26.6 % (39.0-52.0); Hemoglobin 8.4 g/dL (13.0-18.0); Mean Corp Hgb Conc. 31.6 g/dL (33.0-37.0); Mean Corpuscular Hgb 25.1 pg (27.0-31.0); Mean Corpuscular Volume 79.4 fL (80.0-94.0); Mean Platelet Volume 9.5 fL (7.4-10.4); Platelet Count 199 10^3/uL (130-400); Red Blood Cell Count 3.35 10^6/uL (4.70-6.10); Red Cell Dist. Width 16.9 % (11.5-14.5); White Blood Cell Count 7.3 10^3/uL (4.8-10.8)
[2024-07-27 06:15] LABS: Blood Urea Nitrogen 17 mg/dl (9-20); Estimated Creatinine Clearance 66 ml/min; Glucose 116 mg/dl (70-99)
[2024-07-27 06:16] LABS: Calcium 7.7 mg/dl (8.4-10.2); Carbon Dioxide 25 mmol/L (22-30); Chloride 105 mmol/L (98-107); Magnesium 1.7 mg/dl (1.6-2.3); Sodium 137 mmol/L (135-145); eGFR > 60.00
[2024-07-27 07:00] VITALS: BP 155/74
[2024-07-27 07:41] LABS: Glucose - Point of Care 113 mg/dl (70-99)
[2024-07-27] MEDS: NOVOLOG FLEXPEN-LOW RESISTANCE SC ×2 (08:13→17:11)
[2024-07-27] MEDS: MESTINON 30 MG PO ×2 (08:30→21:26)
[2024-07-27] MEDS: XIFAXAN 275 MG PO (08:31)
[2024-07-27] MEDS: PROTONIX IV 40 MG IV ×2 (08:32→21:27)
[2024-07-27] MEDS: SOLU-CORTEF 25 MG IV ×2 (08:32→21:29)
[2024-07-27] MEDS: NSS (PRESERVATIVE FREE) 10 ML IV ×2 (08:33→21:27)
--- NOTE | 2024-07-27 10:39 | W.PN.GS2 ---
Today's Communication / Plan
-
PPI
Clears
Assessment / Plan
-
This is a 74-year-old male with a chronic dysmotility secondary to scleroderma and recurrent partial small bowel obstructions that have resolved with nonoperative management here in the setting with a recurrence in the setting of a T12 burst
fracture.
Tmax of 100, VSS
Infectious work up thus far negative
Passing flatus, tolerating clears without nausea but with no vomiting and some persistent distention. Overall, not feeling much improvement. Family at bedside and patient now reporting that captain's assistant his emesis was coffee ground/black colored
h/h stable s/p one unit of blood, suspect acute blood loss anemia secondary to GIB
Activity/brace as per neurosurgery
Recommend GI consult, will d/w with hospitalist
Increased PPI to BID
Continue clears as tolerated
Subjective Data
-
Date of Service: July 27, 2024
Patient seen and examined at bedside with Dr. Arrington. Denies n/v. Notes he generally feels unwell. Denies abdoinal pain. Passing gas but no BM's. Does report that prior to admission when he was vomiting, it was black with coffee ground consistency.
Objective Data
-
Intake and Output
07/26/24 07/27/24 07/28/24
06:59 06:59 06:59
Intake Total 480 / 480 1040 / 1040
Output Total 1225 / 1225 1320 / 1320
Balance -745 / -745 -280 / -280
Intake:
Oral fluids 480 / 480 540 / 540
Blood products 250 / 250
Blood Product Amount Infused ( 250 / 250
mL)
Packed Rbc Leukoreduced Unit 250 / 250
[id number]
Output:
Urine, Voided 1225 / 1225 1320 / 1320
Vital Signs
Temp Pulse Resp BP Pulse Ox
98.1 F 69 18 155/74 99
07/27/24 07:00 07/27/24 07:00 07/27/24 07:00 07/27/24 07:00 07/27/24 07:00
Lab Results
07/27/24 05:34
07/27/24 05:34
Calcium 7.7 mg/dl (8.4-10.2) L 07/27/24 05:34
Magnesium 1.7 mg/dl (1.6-2.3) 07/27/24 05:34
Total Bilirubin 0.8 mg/dl (0.2-1.3) 07/24/24 08:34
AST 27 U/L (17-59) 07/24/24 08:34
ALT 27 U/L (0-50) 07/24/24 08:34
Alkaline Phosphatase 82 U/L (38-126) 07/24/24 08:34
Total Protein 6.8 g/dl (6.3-8.2) 07/24/24 08:34
Albumin 4.4 g/dl (3.5-5.0) 07/24/24 08:34
Physical Exam
-
GENERAL/NEURO: Awake, Alert, no distress
CHEST: Unlabored breathing on RA
ABDOMEN: Soft, nontender, mildly distended.
[2024-07-27 11:00] VITALS: BP 147/74
--- NOTE | 2024-07-27 12:10 | W.PN.HOSP.TC ---
Today's Communication/Plan
-
consult GI
NPO with IVF
Assessment / Plan
Assessment / Plan
pt is a 74 year old male
SBO--apprec gen surgery--now on clears--advance diet per surgery
Syncope--suspect secondary to dehydration with ongoing GI symptoms--although symptomatic anemia could contribute--HGB 7.5-- EKG with sinus rhythm and nonspecific ST-T changes. Not on any steve blocking agents. Last known echo in April 2023
showed EF of 60 to 65% no significant valvular heart disease. Mild MR was noted
Fall from syncope--patient had a CT of the head and cervical spine without any acute pathology. Abdomen pelvis CT shows- Acute burst fracture of T12 as above. Minimal fracture fragment retropulsion, no associated high-grade narrowing of the canal.
He is in significant pain from the fracture. No sciatica. No lower extremity strength issue--apprec neurosurgery, TLSO brace ordered when patient is ambulating/weightbearing-- cont pain control--PT/OT
fever--last night--await cultures
Scleroderma with SIBO--continue with rifaximin. On chronic prednisone--will switch to stress dose steroids
[place]--suspect secondary to GI volume losses-- cont IVF-- Holding losartan.
anemia--chronic--lower than baseline--? dilutional--no acute bleeding noted--HGB down to 7.5 on 07/26/24 --(11.6 on 07/20)--pt admitted to vomiting black coffee ground looking material over the [place] holidays...s/p 1 unit pRBC and HGB up to
8.4--consult GI
History of CAD status post prior coronary stents-continue with aspirin.
Full code
Anticipated Discharge: > 48 hours
Subjective/Interval History
-
Date of Service: July 27, 2024
pt feels crummy (not very specific)
Objective Data
-
Labs:
Laboratory Results
12/29/24
05:34
WBC 7.3
Hgb 8.4 L
Hct 26.6 L
Plt Count 199
Sodium 137
Potassium 4.0
Chloride 105
Carbon Dioxide 25
BUN 17
Creatinine 1.0
Glucose 116 H
Calcium 7.7 L
Vital Signs:
max temp for 24 hours
07/27/24
03:00
Temp 98.2 F
Vital Signs
Temp Pulse Resp BP Pulse Ox
98.1 F 69 18 155/74 99
07/27/24 07:00 07/27/24 07:00 07/27/24 07:00 07/27/24 07:00 07/27/24 07:00
I&O
07/26/24 07/27/24 07/28/24
06:59 06:59 06:59
Intake Total 480 / 480 1040 / 1040
Output Total 1225 / 1225 1320 / 1320
Balance -745 / -745 -280 / -280
Review of Systems
-
All other systems: Reviewed and negative
Physical Exam
-
General: Appears Chronically Ill
HEENT: Normocephalic, Atraumatic and Oxygen
Respiratory: Clear to Auscultation; Negative Wheezes or Rhonchi
Cardiac: Regular Rhythm and S1/S2; Negative Murmur
GI: Soft, Nontender, Nondistended and Normal Bowel Sounds
Musculoskeletal: No Clubbing, No Cyanosis and No Edema
Skin: Other (scleroderma skin changes)
Neuro: Awake
[2024-07-27 12:44] LABS: Glucose - Point of Care 157 mg/dl (70-99)
[2024-07-27] MEDS: NOVOLOG FLEXPEN-LOW RESISTANCE 1 UNITS SC (13:12)
[2024-07-27] MEDS: D5/0.9% SODIUM CHLORIDE 1000 IV (13:14)
--- NOTE | 2024-07-27 14:29 | CON.GI ---
Consultation
-
Date/Time Consultation Requested: 07/27/2024
Date/Time Consultation Performed: 07/27/2024
Requesting Provider: Hospitalist
Performing Provider: Sanjiv JARRETT
Reason for Consultation: SBO/coffee-ground emesis
Medical History
Chief Complaint / HPI
Chief Complaint: Nausea/vomiting/syncope
History of Present Illness:
74-year-old male with history of scleroderma, SIBO, multiple pseudo SBO, coronary artery disease, hypertension, reflux, diabetes is admitted with nausea/vomiting. Patient claims he started having nausea/vomiting since last Sunday. He was
evaluated in ED on 07/20 and was discharged home. And he then could not tolerate any food and started having continuous vomiting on . He was weak and while he was having shower he lost his consciousness and had a fall. At that time
he was having coffee-ground vomitus. CT abdomen/pelvis done during admission showing acute burst fracture of T12. No associated high-grade narrowing of the canal.
Small bowel obstruction with transition in the right lower quadrant .
Past Medical History
Past Medical History: Other (SIBO ASCVD GERD Hypertension DM-II Scleroderma)
Past Surgical History: Other (Cardiac stent x6 Cholecystectomy)
Social History
Tobacco: Non-Smoker
Alcohol: None
Allergies / Home Medications
Allergy/AdvReac Type Severity Reaction Status Date / Time
No Known Allergies Allergy Verified 07/24/24 07:44
�Medication �Instructions �Recorded
losartan 50 mg tablet 50 mg PO HS Blood pressure 06/19/20
aspirin 81 mg tablet,delayed 81 mg PO HS Blood clot 06/28/20
release prevention/tx
atorvastatin 80 mg tablet 80 mg PO DAILY High cholesterol 06/28/20
nifedipine 30 mg tablet,extended 30 mg PO HS Blood pressure 06/28/20
release
glimepiride 2 mg tablet 2 mg PO DAILY Diabetes 02/08/22
prednisone 5 mg tablet 5 mg PO DAILY SCLERODERMA 02/08/22
pyridostigmine bromide 60 mg tablet 30 mg PO BID Gastrointestinal Issue 03/19/23
prucalopride 2 mg tablet 2 mg PO HS Constipation 12/12/23
(Motegrity)
rifaximin 550 mg tablet (Xifaxan) 225 mg PO DAILY Gastrointestinal 12/12/23
Issue
pantoprazole 40 mg tablet,delayed 40 mg PO DAILY GERD 02/29/24
release (Protonix)
ondansetron 4 mg disintegrating 4 mg PO Q8H PRN nausea and 07/21/24
tablet vomiting #10 tabs
Review of Systems
Vital Signs
Temp Pulse Resp BP Pulse Ox
98.1 F 69 18 155/74 99
07/27/24 07:00 07/27/24 07:00 07/27/24 07:00 07/27/24 07:00 07/27/24 07:00
Physical Exam
Exam
General: Comfortable
Respiratory: Clear
Cardiac: S1/S2
GI: Soft, Non Tender and Non Distended
Neuro: AO x 3
Results
WBC 7.3 10^3/uL (4.8-10.8) 07/27/24 05:34
Hgb 8.4 g/dL (13.0-18.0) L 07/27/24 05:34
Hct 26.6 % (39.0-52.0) L 07/27/24 05:34
MCV 79.4 fL (80.0-94.0) L 07/27/24 05:34
Plt Count 199 10^3/uL (130-400) 07/27/24 05:34
Absolute Neuts (auto) 15.7 10^3/uL (1.4-6.5) H 07/24/24 08:34
Sodium 137 mmol/L (135-145) 07/27/24 05:34
Potassium 4.0 mmol/L (3.5-5.1) 12/29/24 05:34
Chloride 105 mmol/L (98-107) 07/27/24 05:34
Carbon Dioxide 25 mmol/L (22-30) 07/27/24 05:34
BUN 17 mg/dl (9-20) 07/27/24 05:34
Creatinine 1.0 mg/dL (0.7-1.3) 07/27/24 05:34
Calcium 7.7 mg/dl (8.4-10.2) L 07/27/24 05:34
Total Bilirubin 0.8 mg/dl (0.2-1.3) 07/24/24 08:34
AST 27 U/L (17-59) 07/24/24 08:34
ALT 27 U/L (0-50) 07/24/24 08:34
Alkaline Phosphatase 82 U/L (38-126) 07/24/24 08:34
Diagnostic Image Results:
CT abdomen/pelvis 07/24/2024 without contrast
IMPRESSION:
1. Acute burst fracture of T12 as above. Minimal fracture fragment retropulsion, no associated high-grade narrowing of the canal.
2. Small bowel obstruction with transition in the right lower quadrant as detailed above.
3. Atherosclerotic changes with severe coronary artery calcification.
4. Diffuse mild wall thickening of the urinary bladder as above. This may be related to underdistention, cystitis is a consideration.
Prior GI Procedures:
EGD: 5 to 6 years back as per patient. No records available to review
Colonoscopy: Dr. Esparza 06/15/2023
Impression: - One 10 mm polyp at the hepatic flexure, removed with
a hot snare. Resected and retrieved. Path-tubular adenoma
- One diminutive polyp in the descending colon,
removed with a michaelo cold forceps. Resected and
retrieved. Path tubular adenoma
- Diverticulosis in the sigmoid colon.
Assessment / Plan
-
74-year-old male with history of scleroderma, SIBO, multiple pseudo bowel obstruction in the past, diabetes admitted with nausea/vomiting for 5 days. Patient also Had an episode of syncope and fall. Patient follows with Dr. Esparza/Dr. Jacome at
[facility] (he was taking rifaximin/Motegrity, pyridostigmine regime)
-- Small bowel obstruction/history of chronic pseudoobstruction with dysmotility.
-- History of scleroderma/ SIBO
--Acute on chronic anemia. Last colonoscopy 2022. As per patient EGD 5 to 6 years back
-- Syncope s/p fall with acute burst fracture T12
-- Fever-last Tmax 100 (07/26). Blood culture negative
plan
GI was consulted for acute on chronic anemia with coffee-ground emesis prior to admission. No vomiting since admission. No dark stool or hematochezia. Passing flatus. Patient was tolerating clear liquid diet.
Hb stable with 1 unit transfusion. Considering his history coffee-ground emesis can be secondary to Margo-Syed tear from intractable vomiting with SBO . Also patients with scleroderma with esophageal dysmotility/reflux results in esophagitis .
currently denies any overt GI bleeding
Continue monitor H&H
Protonix 40 mg IV twice daily
Continue clear liquid diet
Will repeat abdominal x-ray
Will hold off on EGD at this point considering resolving small bowel obstruction at present/ acute T12 fracture with restricted movements/unclear etiology for fever
Timing of EGD to be determined with clinical course
Total Time Spent with Patient (in minutes): 55
-
-
Thank you for consultation and allowing me to participate in the patient's care. Please call the production cost estimator GI physician during the after hours with any questions or concerns.
[2024-07-27 15:00] VITALS: BP 153/75
[2024-07-27 16:35] VITALS: BP 141/75; BP 155/77; O2SAT 92
[2024-07-27] MEDS: DILAUDID 0.5 MG IV (17:08)
[2024-07-27 17:09] LABS: Glucose - Point of Care 93 mg/dl (70-99)
[2024-07-27] MEDS: LOVENOX 30 MG SC (17:11)
[2024-07-27 21:12] LABS: Glucose - Point of Care 191 mg/dl (70-99)
[2024-07-27] MEDS: ASPIR LOW (ENTERIC COATED) 81 MG PO (21:28)
[2024-07-27 23:12] VITALS: BP 156/76
[2024-07-28] MEDS: D5/0.9% SODIUM CHLORIDE 1000 IV (02:06)
[2024-07-28 07:37] VITALS: BP 155/74
[2024-07-28 07:55] LABS: Glucose - Point of Care 138 mg/dl (70-99)
[2024-07-28 08:53] LABS: Hematocrit 28.3 % (39.0-52.0); Hemoglobin 9.1 g/dL (13.0-18.0); Mean Corp Hgb Conc. 32.2 g/dL (33.0-37.0); Mean Corpuscular Hgb 25.3 pg (27.0-31.0); Mean Corpuscular Volume 78.8 fL (80.0-94.0); Mean Platelet Volume 10.1 fL (7.4-10.4); Platelet Count 204 10^3/uL (130-400); Red Blood Cell Count 3.59 10^6/uL (4.70-6.10); White Blood Cell Count 7.4 10^3/uL (4.8-10.8)
[2024-07-28] MEDS: NOVOLOG FLEXPEN-LOW RESISTANCE SC (09:11)
[2024-07-28] MEDS: XIFAXAN 275 MG PO (09:11)
[2024-07-28] MEDS: PROTONIX IV 40 MG IV ×2 (09:12→19:41)
[2024-07-28] MEDS: NSS (PRESERVATIVE FREE) 10 ML IV ×2 (09:13→19:41)
[2024-07-28] MEDS: FLUSH (NSS) 2 FLUSH IV (09:14)
[2024-07-28] MEDS: MESTINON 30 MG PO ×2 (09:20→19:40)
[2024-07-28] MEDS: SOLU-CORTEF 25 MG IV ×2 (09:21→19:41)
[2024-07-28 09:25] LABS: Blood Urea Nitrogen 15 mg/dl (9-20); Calcium 8.2 mg/dl (8.4-10.2); Carbon Dioxide 24 mmol/L (22-30); Chloride 104 mmol/L (98-107); Estimated Creatinine Clearance 66 ml/min; Glucose 112 mg/dl (70-99); Magnesium 1.9 mg/dl (1.6-2.3); Potassium 3.9 mmol/L (3.5-5.1); Sodium 139 mmol/L (135-145); eGFR > 60.00
--- NOTE | 2024-07-28 09:50 | W.PN.GS2 ---
Today's Communication / Plan
-
Okay for low residue diet
Assessment / Plan
-
This is a 74-year-old male with a chronic dysmotility secondary to scleroderma and recurrent partial small bowel obstructions that have resolved with nonoperative management here in the setting with a recurrence in the setting of a T12 burst
fracture. With clinical improvement in his GI symptoms however significant back pain.
Infectious work up thus far negative
Can advance diet, to low res.
GI consulted, No plan for EGD right now appreciate their recommendations.
h/h stable, patient does endorse melena which fits with an upper GI bleed that potentially has resolved.
Increased PPI to BID
General Surgery will continue to follow.
Time Spent
Total Time Spent with Patient (in minutes): 20
Subjective Data
-
Date of Service: July 28, 2024
Interval Events:
No acute events overnight. Slept well. Abdominal pain improved, However his back pain is much worse. denies Nausea/Vomiting, +bowel function. Tolerating diet.
Objective Data
-
Intake and Output
07/27/24 07/28/24 07/29/24
06:59 06:59 06:59
Intake Total 1040 / 1040 1065 / 1065
Output Total 1320 / 1320
Balance -280 / -280 1065 / 1065
Intake:
Oral fluids 540 / 540 240 / 240
IV fluids (Total) 825 / 825
Blood products 250 / 250
Blood Product Amount Infused ( 250 / 250
mL)
Packed Rbc Leukoreduced Unit 250 / 250
[id number]
Output:
Urine, Voided 1320 / 1320
Vital Signs
Temp Pulse Resp BP Pulse Ox
98.7 F 66 20 155/74 95
07/28/24 07:37 07/28/24 07:37 07/28/24 07:37 07/28/24 07:37 07/28/24 09:28
Lab Results
07/28/24 07:22
07/28/24 07:22
Calcium 8.2 mg/dl (8.4-10.2) L 07/28/24 07:22
Magnesium 1.9 mg/dl (1.6-2.3) 07/28/24 07:22
Total Bilirubin 0.8 mg/dl (0.2-1.3) 07/24/24 08:34
AST 27 U/L (17-59) 07/24/24 08:34
ALT 27 U/L (0-50) 07/24/24 08:34
Alkaline Phosphatase 82 U/L (38-126) 07/24/24 08:34
Total Protein 6.8 g/dl (6.3-8.2) 07/24/24 08:34
Albumin 4.4 g/dl (3.5-5.0) 07/24/24 08:34
Physical Exam
-
GENERAL/NEURO: Awake, Alert, no distress
CHEST: Unlabored breathing on RA
ABDOMEN: Soft, Non-Tender, mildly distended
[2024-07-28] MEDS: DILAUDID 0.5 MG IV ×2 (10:36→19:44)
[2024-07-28] MEDS: FLUSH (NSS) 1 FLUSH IV (10:38)
[2024-07-28 11:22] LABS: Glucose - Point of Care 168 mg/dl (70-99)
--- NOTE | 2024-07-28 13:13 | W.PN.GI.CBS2 ---
Addendum entered and electronically signed by Anabell Bowles MD 07/28/24 19:42:
I saw and examined the patient.
The [employer] or PA's note was reviewed and I agree with the note.
Comment: 74 yo F pmh scleroderma, SIBO, psuedo bowel obstruction p/w n/v. However this time he had coffee ground emesis with Hb as low as 7.5 on 07/26 requiring 1U PRBC. EGD was on hold as pt had fever 07/25 (no further fever since then, Tmax
yesterday 100) and with obstruction and T12 fracture. No longer obstructed, tolerating diet, having BM. D/w patient able to turn on his left side, may benefit to wear brace during procedure and will need to keep the head of his bed up above 30
degrees. Reviewed with pt and family friend at bedside EGD r/a/b of procedure risks inc but not limited to bleeding, infection, perforation they are agreeable. If EGD negative, had cscope 2022 with coffee ground emesis do not suspect lower GI
source no need for cscope.
Original Note:
Today's Communication / Plan
-
As per plan
Assessment / Plan
-
74-year-old male with history of scleroderma, SIBO, multiple pseudo bowel obstruction in the past, diabetes admitted with nausea/vomiting for 5 days. Patient also Had an episode of syncope and fall. Patient follows with Dr. Esparza/Dr. Jacome at
[facility] (he was taking rifaximin/Motegrity, pyridostigmine regime)
-- Small bowel obstruction/history of chronic pseudoobstruction with dysmotility.
-- History of scleroderma/ SIBO
--Acute on chronic anemia. Last colonoscopy 2022. As per patient EGD 5 to 6 years back
-- Syncope s/p fall with acute burst fracture T12
-- Fever-last Tmax 100 (07/26). Blood culture negative
plan
GI was consulted for acute on chronic anemia with coffee-ground emesis prior to admission. No vomiting since admission. Patient with dark bowel movement. Continues on PPI twice daily. Hemoglobin improved after 1 unit packed red blood cells.
Hb stable with 1 unit transfusion. Considering his history coffee-ground emesis can be secondary to Margo-Syed tear from intractable vomiting with SBO . Also patients with scleroderma with esophageal dysmotility/reflux results in esophagitis .
currently denies any overt GI bleeding
Protonix 40 mg IV twice daily
Tolerating solid diet
Will hold off on EGD at this point considering resolving small bowel obstruction at present/ acute T12 fracture with restricted movements/unclear etiology for fever
Hold off on EGD unless signs of active bleeding or drop in hemoglobin
Subjective
Subjective
Date of Service: July 28, 2024
Patient with dark soft stool this am. Hgb 9.1 up from 8.4 up from 7.5 after 1 unit packed red blood cells. Tolerating solid diet without any abdominal discomfort. Continues on aspirin 81 mg daily. Lovenox subcu. Continues on pantoprazole 40 mg IV
twice daily.
Objective
Data Reviewed
Laboratory Data:
Laboratory Results
07/28/24 07:22
07/28/24 07:22
Laboratory Results
Magnesium 1.9 mg/dl (1.6-2.3) 07/28/24 07:22
Total Bilirubin 0.8 mg/dl (0.2-1.3) 07/24/24 08:34
AST 27 U/L (17-59) 07/24/24 08:34
ALT 27 U/L (0-50) 07/24/24 08:34
Alkaline Phosphatase 82 U/L (38-126) 07/24/24 08:34
Vital Signs and I&O:
Vital Signs
Temp Pulse Resp BP Pulse Ox
98.7 F 66 20 155/74 95
07/28/24 07:37 07/28/24 07:37 07/28/24 07:37 07/28/24 07:37 07/28/24 09:28
I&O
07/27/24 07/28/24 07/29/24
06:59 06:59 06:59
Intake Total 1040 / 1040 1065 / 1065
Output Total 1320 / 1320
Balance -280 / -280 5 / 1065
Physical Exam
Physical Exam
HEENT: Anicteric
Cardiology: Normal Sinus Rhythm
Pulmonary: Clear (Anterior)
GI: Soft, Non Distended, Non Tender and Normal Bowel Sounds
Neuro: Non Focal
[2024-07-28] MEDS: NOVOLOG FLEXPEN-LOW RESISTANCE 1 UNITS SC ×2 (13:30→17:18)
--- NOTE | 2024-07-28 14:30 | W.PN.HOSP.TC ---
Addendum entered and electronically signed by Mora Cerda MD 07/28/24 16:18:
I saw and evaluated the patient independently. I reviewed the resident�s note and agree with findings and plan as documented by Dr. Forrest.
GENERAL: chronically ill appearing male in no apparent distress
HEENT: NC/AT
HEART: regular rate and rhythm, +S1, +S2
LUNGS : clear to auscultation bilaterally
ABDOM: soft, nontender, nondistended, + bowel sounds
EXT: no cyanosis, clubbing, or edema--skin changes c/w scleroderma
NEUROLOGIC: grossly intact
SBO--apprec gen surgery--advance diet per surgery
Syncope--suspect secondary to dehydration with ongoing GI symptoms--although symptomatic anemia could contribute--HGB 7.5, 8.4, 9.1--given HGB above 9 will NOT transfuse today--trend H&H-- EKG with sinus rhythm and nonspecific ST-T changes. Not on
any steve blocking agents. Last known echo in April 2023 showed EF of 60 to 65% no significant valvular heart disease. Mild MR was noted
Fall from syncope--patient had a CT of the head and cervical spine without any acute pathology. Abdomen pelvis CT shows- Acute burst fracture of T12 as above. Minimal fracture fragment retropulsion, no associated high-grade narrowing of the canal.
He is in significant pain from the fracture. No sciatica. No lower extremity strength issue--apprec neurosurgery, TLSO brace ordered when patient is ambulating/weightbearing-- cont pain control--PT/OT
fever--last night--cultures neg to date
Scleroderma with SIBO--continue with rifaximin. On chronic prednisone--will switch to stress dose steroids--will need to decrease back to outpt doses at d/c
[place]--suspect secondary to GI volume losses-- cont IVF-- Holding losartan.
anemia--chronic--lower than baseline--? dilutional--no acute bleeding noted--HGB down to 7.5 on 07/26/24 --(11.6 on 07/20)--pt admitted to vomiting black coffee ground looking material over the holidays...s/p 1 unit pRBC and HGB up to 8.4,
now 9.1--apprec GI, nothing further from GI standpoint
History of CAD status post prior coronary stents-continue with aspirin.
Full code
Original Note:
Today's Communication/Plan
-
Transfuse 1 pint of blood
Advance to low residue diet
Start working with physical therapy
Assessment / Plan
Assessment / Plan
Impression
Patient is a 74 year old male admitted with small bowel obstruction secondary to chronic dysmotility issues secondary to scleroderma. Patient reports severe back pain secondary to T12 burst fracture and feels very weak and tired. He had black
stools today, his hemoglobin has remained stable and is 9.1 today on July 28, 2024. He has been tolerating clear liquids well.
Assessment/plan
1.Small bowel obstruction secondary to chronic dysmotility from scleroderma
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
Infectious workup until now has been negative
GI consult appreciated who suggested PPI and trending H&H, GI suspect Margo-Syed tear from excessive vomiting and reflux esophagitis in setting of scleroderma
Repeat abdominal x-ray showed no significant dilated air-filled loops of bowel
General surgery recommended to advance diet to low residue
2.Syncope-
-Suspect secondary to dehydration with ongoing GI symptoms and anemia
EKG with sinus rhythm and nonspecific ST-T changes. Not on any steve blocking agents. Last known echo in April 2023 showed EF of 60 to 65% no significant valvular heart disease. Mild MR was noted
3.Fall from syncope
Patient had a CT of the head and cervical spine without any acute pathology.
Abdomen pelvis CT shows- Acute burst fracture of T12 as above. Minimal fracture fragment retropulsion, no associated high-grade narrowing of the canal
Significant pain from the fracture. No sciatica. No lower extremity strength issue
Neurosurgery consult appreciated, TLSO brace ordered when patient is ambulating/weightbearing
Scleroderma with SIBO--continue with rifaximin. On chronic prednisone--will switch to stress dose steroids
FLOR[place]--resolved
Anemia--patient's hemoglobin dropped to 7.5 on July 26, 2024 and 1 pend of blood was transfused. Patient's hemoglobin has been stable since then. Patient feels very weak and tired. Plan to transfuse 1 more point of blood today
History of CAD status post prior coronary stents-continue with aspirin.
PT/OT recommended acute rehab with skilled therapy of 3 or more hours daily due to medical complexity and physical limitations
Full code
DVT prophylaxis-sequential compression devices
Anticipated Discharge: 24 - 48 hours
Subjective/Interval History
-
Date of Service: July 28, 2024
Patient is feeling very weak and tired, reports back pain and had a bowel movement today that was tarry dark in color
Objective Data
-
Labs:
Laboratory Results
07/28/24
07:22
WBC 7.4
Hgb 9.1 L
Hct 28.3 L
Plt Count 204
Sodium 139
Potassium 3.9
Chloride 104
Carbon Dioxide 24
BUN 15
Creatinine 1.0
Glucose 112 H
Calcium 8.2 L
Vital Signs:
Vital Signs
Temp Pulse Resp BP Pulse Ox
98.7 F 66 20 155/74 95
07/28/24 07:37 07/28/24 07:37 07/28/24 07:37 07/28/24 07:37 07/28/24 09:28
I&O
07/27/24 07/28/24 07/29/24
06:59 06:59 06:59
Intake Total 1040 / 1040 1065 / 1065
Output Total 1320 / 1320
Balance -280 / -280 1065 / 1065
Review of Systems
-
All other systems: Reviewed and negative
Physical Exam
-
General: Appears Chronically Ill
HEENT: Normocephalic and Atraumatic
Respiratory: Clear to Auscultation
Cardiac: Regular Rhythm and S1/S2
GI: Soft, Nontender, Nondistended and Normal Bowel Sounds
Musculoskeletal: No Clubbing, No Cyanosis and No Edema
Skin: Warm
Neuro: Awake, Oriented and No Motor Deficits
Psych: Calm
[2024-07-28 15:22] VITALS: BP 146/60
--- NOTE | 2024-07-28 15:43 | CM ---
Patient seen at bedside with physician. Patient continues to hope for [facility] assessment and placement when medically appropriate.
CM will continue to follow for discharge planning needs.
Plan; [facility] pending assessment will need auth
[2024-07-28 15:51] LABS: Glucose - Point of Care 183 mg/dl (70-99)
[2024-07-28] MEDS: LOVENOX 30 MG SC (17:20)
[2024-07-28] MEDS: D5/0.9% SODIUM CHLORIDE IV (17:51)
[2024-07-28 21:38] LABS: Glucose - Point of Care 143 mg/dl (70-99)
[2024-07-28] MEDS: ASPIR LOW (ENTERIC COATED) 81 MG PO (23:07)
[2024-07-28 23:23] VITALS: BP 139/64
[2024-07-29] MEDS: DILAUDID 0.5 MG IV (01:55)
[2024-07-29 07:20] VITALS: BP 154/70
[2024-07-29] MEDS: ZOFRAN 4 MG IV (07:26)
[2024-07-29 07:37] LABS: Glucose - Point of Care 117 mg/dl (70-99)
--- NOTE | 2024-07-29 08:43 | W.PN.HOSP.TC ---
Addendum entered and electronically signed by Mora Cerda MD 07/29/24 18:50:
I saw and evaluated the patient independently. I reviewed the resident�s note and agree with findings and plan as documented by Dr. Forrest.
GENERAL: chronically ill appearing male in no apparent distress
HEENT: NC/AT
HEART: regular rate and rhythm, +S1, +S2
LUNGS : clear to auscultation bilaterally
ABDOM: soft, nontender, nondistended, + bowel sounds
EXT: no cyanosis, clubbing, or edema--skin changes c/w scleroderma
NEUROLOGIC: grossly intact
SBO--apprec gen surgery--advance diet
Syncope--suspect secondary to dehydration with ongoing GI symptoms--although symptomatic anemia could contribute--HGB 7.5, 8.4, 9.1--given HGB above 9 will NOT transfuse --trend H&H-- EKG with sinus rhythm and nonspecific ST-T changes. Not on any
steve blocking agents. Last known echo in April 2023 showed EF of 60 to 65% no significant valvular heart disease. Mild MR was noted
Fall from syncope--patient had a CT of the head and cervical spine without any acute pathology. Abdomen pelvis CT shows- Acute burst fracture of T12 as above. Minimal fracture fragment retropulsion, no associated high-grade narrowing of the canal.
He is in significant pain from the fracture. No sciatica. No lower extremity strength issue--apprec neurosurgery, TLSO brace ordered when patient is ambulating/weightbearing-- cont pain control--PT/OT
fever--resolved--cultures neg to date
Scleroderma with SIBO--continue with rifaximin. On chronic prednisone--will switch to stress dose steroids--will need to decrease back to outpt doses at d/c
[place]--suspect secondary to GI volume losses--resolved--can restart losartan.
anemia of chronic disease---lower than baseline--? dilutional--no acute bleeding noted--HGB down to 7.5 on 07/26/24 --(11.6 on 07/20)--pt admitted to vomiting black coffee ground looking material over the holidays...s/p 1 unit pRBC and HGB
up to 8.4, now 9.1--apprec GI, s/p EGD 07/29/24 with short segment of Pickard's--retained food in stomach--no other significant findings
History of CAD status post prior coronary stents-continue with aspirin.
Full code
hopeful d/c to [facility]--consult PM&R
Original Note:
Today's Communication/Plan
-
Monitor H&H
Physical rehabilitation
Assessment / Plan
Assessment / Plan
Impression
Patient is a 74 year old male admitted with small bowel obstruction secondary to chronic dysmotility issues secondary to scleroderma. Patient reports severe back pain secondary to T12 burst fracture and feels very weak and tired. He had black
stools today, his hemoglobin has remained stable and is 9.1 today on July 28, 2024. He has been tolerating clear liquids well.
Assessment/plan
1.Small bowel obstruction secondary to chronic dysmotility from scleroderma
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
Infectious workup until now has been negative, no leukocytes in stool, norovirus negative, Salmonella Shigella C. difficile testing pending, blood cultures negative
GI consult appreciated -patient's hemoglobin stable, plan to do endoscopy today to assess the source of bleeding
Repeat abdominal x-ray showed no significant dilated air-filled loops of bowel
General surgery recommended to advance diet to low residue which the patient has been tolerating well
Patient's hemoglobin stable around 9 right now
Endoscopy 07/29/24
Impression: - Normal proximal esophagus.
- Small amount of retained fluid in the mid esophagus,
suctioned and cleared.
- [place]-colored mucosa suspicious for short-segment
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
C0-M1 per [place] criteria. Biopsied.
- Otherwise, normal esophagus without any evidence of
esophagitis, jimy-resendez tears or ulcerations
- Multiple, benign appearing gastric polyps.
Endoscopically, consistent with benign fundic gland
polyps and left intact as all were less than 1 cm
- A small amount of food (residue) in the gastric
antrum
- Otherwise, normal stomach on direct and retroflexion
views
- Small amount of retained food/residue in the
examined duodenum up to the third portion
- The examination was otherwise normal.
2.Syncope-
-Suspect secondary to dehydration with ongoing GI symptoms and anemia
EKG with sinus rhythm and nonspecific ST-T changes. Not on any steve blocking agents. Last known echo in April 2023 showed EF of 60 to 65% no significant valvular heart disease. Mild MR was noted
3.Fall from syncope
Patient had a CT of the head and cervical spine without any acute pathology.
Abdomen pelvis CT shows- Acute burst fracture of T12 as above. Minimal fracture fragment retropulsion, no associated high-grade narrowing of the canal
Significant pain from the fracture. No sciatica. No lower extremity strength issue
Neurosurgery consult appreciated, TLSO brace ordered when patient is ambulating/weightbearing
Scleroderma with SIBO--continue with rifaximin. On chronic prednisone--will switch to stress dose steroids
[place]--resolved
Anemia--patient's hemoglobin dropped to 7.5 on July 26, 2024 and 1 pint of blood was transfused. Patient's hemoglobin has been stable since then. Hemoglobin 9.1 07/28/2024 and 9 on 07/29/24
History of CAD status post prior coronary stents-continue with aspirin.
PT/OT recommended acute rehab with skilled therapy of 3 or more hours daily due to medical complexity and physical limitations
OT evaluation done who suggested acute rehab due to physical limitations
Full code
DVT prophylaxis-sequential compression devices
Anticipated Discharge: 24 - 48 hours
Subjective/Interval History
-
Date of Service: July 29, 2024
Patient having back pain, reports 1 bowel movement last night that was brown in color, patient is on low residue diet but n.p.o. since midnight for endoscopy today
Objective Data
-
Labs:
Laboratory Results
07/29/24
07:16
WBC Pending
Hgb Pending
Hct Pending
Plt Count Pending
Sodium Pending
Potassium Pending
Chloride Pending
Carbon Dioxide Pending
BUN Pending
Creatinine Pending
Glucose Pending
Calcium Pending
Vital Signs:
Vital Signs
Temp Pulse Resp BP Pulse Ox
98.1 F 69 22 154/70 99
07/29/24 07:20 07/29/24 07:20 07/29/24 07:20 07/29/24 07:20 07/29/24 07:20
I&O
07/28/24 07/29/24 07/30/24
06:59 06:59 06:59
Intake Total 1065 / 1065 1680 / 1680
Balance 1065 / 1065 1680 / 1680
Review of Systems
-
All other systems: Reviewed and negative
Physical Exam
-
General: Appears Chronically Ill and Other (Appears very weak and tired)
HEENT: Normocephalic and Atraumatic
Respiratory: Clear to Auscultation
Cardiac: Regular Rhythm and S1/S2
GI: Soft, Nontender and Normal Bowel Sounds
Musculoskeletal: No Clubbing, No Cyanosis and No Edema
Skin: Warm and Dry
Neuro: Awake, Oriented and No Motor Deficits
Psych: Calm
[2024-07-29] MEDS: XIFAXAN 275 MG PO (09:00)
[2024-07-29] MEDS: PROTONIX IV 40 MG IV ×2 (09:03→20:18)
[2024-07-29] MEDS: NSS (PRESERVATIVE FREE) 10 ML IV ×2 (09:03→20:18)
[2024-07-29] MEDS: MESTINON 30 MG PO ×2 (09:04→20:16)
[2024-07-29] MEDS: SOLU-CORTEF 25 MG IV ×2 (09:05→20:18)
[2024-07-29] MEDS: NOVOLOG FLEXPEN-LOW RESISTANCE SC ×3 (09:13→16:17)
--- NOTE | 2024-07-29 11:10 | W.PN.GS2 ---
Today's Communication / Plan
-
-- EGD today
-- LRD or puree diet with supplement shakes as tolerated
-- Further management per GI, please call with questions or concerns
Assessment / Plan
-
This is a 74-year-old male with a chronic dysmotility secondary to scleroderma and recurrent partial small bowel obstructions that have resolved with nonoperative management here in the setting with a recurrence in the setting of a T12 burst
fracture. With clinical improvement in his GI symptoms however significant back pain.
No plans or role for surgical intervention. Plan for EGD today. Further care management per GI.
-- EGD today
-- LRD or puree diet with supplement shakes a post-procedure
-- Further management per GI, please call with questions or concerns
-- Outpatient follow-up with motility center
Subjective Data
-
Date of Service: July 29, 2024
Reports bloating yesterday with LRD, currently symptoms have improved. No nausea or vomiting. Continues to pass flatus and loose nonbloody stools. Afebrile.
Objective Data
-
Intake and Output
07/28/24 07/29/24 07/30/24
06:59 06:59 06:59
Intake Total 1065 / 1065 1680 / 1680
Balance 1065 / 1065 1680 / 1680
Intake:
Oral fluids 240 / 240 1080 / 1080
IV fluids (Total) 825 / 825 600 / 600
Other:
Number of approximated MODERATE 2
amounts of urine
Vital Signs
Temp Pulse Resp BP Pulse Ox
98.1 F 69 22 154/70 99
07/29/24 07:20 07/29/24 07:20 07/29/24 07:20 07/29/24 07:20 07/29/24 07:20
Calcium 8.2 mg/dl (8.4-10.2) L 07/28/24 07:22
Magnesium 1.9 mg/dl (1.6-2.3) 07/28/24 07:22
Total Bilirubin 0.8 mg/dl (0.2-1.3) 07/24/24 08:34
AST 27 U/L (17-59) 07/24/24 08:34
ALT 27 U/L (0-50) 07/24/24 08:34
Alkaline Phosphatase 82 U/L (38-126) 07/24/24 08:34
Total Protein 6.8 g/dl (6.3-8.2) 07/24/24 08:34
Albumin 4.4 g/dl (3.5-5.0) 07/24/24 08:34
Physical Exam
-
Gen: NAD
Abd: soft, mild diffuse tenderness, ND, non-peritoneal
[2024-07-29 11:26] LABS: % Basophils 0.4 % (0-2); % Eosinophils 2.3 % (0-6); % Immature Granulocytes 0.5 % (0-0.5); % Lymphocytes 13.7 % (20.5-51.1); % Monocytes 10.4 % (1.7-9.3); % Neutrophils 72.7 % (42.2-75.2); Absolute Eosinophils 0.2 10^3/uL (0-0.7); Absolute Lymphocytes 1.2 10^3/uL (1.2-3.4); Absolute Monocytes 0.9 10^3/uL (0.1-0.6); Absolute Neutrophils 6.2 10^3/uL (1.4-6.5); Hematocrit 30.1 % (39.0-52.0); Mean Corp Hgb Conc. 29.9 g/dL (33.0-37.0); Mean Corpuscular Hgb 24.4 pg (27.0-31.0); Mean Corpuscular Volume 81.6 fL (80.0-94.0); Nucleated Red Blood Cells % 0 % (-); Platelet Count 265 10^3/uL (130-400); Red Blood Cell Count 3.69 10^6/uL (4.70-6.10); Red Cell Dist. Width 17.4 % (11.5-14.5); White Blood Cell Count 8.6 10^3/uL (4.8-10.8)
[2024-07-29 11:49] LABS: Blood Urea Nitrogen 16 mg/dl (9-20); Calcium 8.3 mg/dl (8.4-10.2); Carbon Dioxide 28 mmol/L (22-30); Estimated Creatinine Clearance 60 ml/min; Glucose 112 mg/dl (70-99); Magnesium 1.8 mg/dl (1.6-2.3); Potassium 3.6 mmol/L (3.5-5.1); Sodium 139 mmol/L (135-145); eGFR > 60.00
[2024-07-29 11:54] LABS: Chloride 102 mmol/L (98-107)
[2024-07-29 12:43] LABS: Glucose - Point of Care 141 mg/dl (70-99)
[2024-07-29 14:00] VITALS: BP 134/58; BP_SYST 23
[2024-07-29 14:01] VITALS: BP 134/58
[2024-07-29 14:15] VITALS: BP 138/61
[2024-07-29 15:00] VITALS: BP 143/64
--- NOTE | 2024-07-29 15:16 | CM ---
Patient accepted for Acute Rehab at [facility] NPI# [id number]
Dr Macias NPI# [id number]
TC to [facility]- they do not do the commercial, need to call [facility]
TC to [facility] ([facility]) [phone], spoke with Chayo Blanc
Pended auth # [id number]
Clinicals faxed to [phone]
Plan: [facility] once auth received.
[2024-07-29 15:48] LABS: Glucose - Point of Care 122 mg/dl (70-99)
[2024-07-29] MEDS: LOVENOX 30 MG SC (18:24)
[2024-07-29] MEDS: ASPIR LOW (ENTERIC COATED) 81 MG PO (20:15)
[2024-07-29 23:15] VITALS: BP 145/71
[2024-07-30 00:47] LABS: Glucose - Point of Care 205 mg/dl (70-99)
[2024-07-30 03:10] LABS: Glucose - Point of Care 166 mg/dl (70-99)
[2024-07-30 05:21] LABS: % Basophils 0.3 % (0-2); % Eosinophils 0.8 % (0-6); % Immature Granulocytes 0.4 % (0-0.5); % Lymphocytes 11.3 % (20.5-51.1); % Neutrophils 77.2 % (42.2-75.2); Absolute Eosinophils 0.1 10^3/uL (0-0.7); Absolute Lymphocytes 1.2 10^3/uL (1.2-3.4); Absolute Neutrophils 7.9 10^3/uL (1.4-6.5); Hematocrit 26.1 % (39.0-52.0); Hemoglobin 8.4 g/dL (13.0-18.0); Mean Corp Hgb Conc. 32.2 g/dL (33.0-37.0); Mean Corpuscular Hgb 25.5 pg (27.0-31.0); Mean Corpuscular Volume 79.3 fL (80.0-94.0); Mean Platelet Volume 9.7 fL (7.4-10.4); Nucleated Red Blood Cells % 0 % (-); Platelet Count 247 10^3/uL (130-400); Red Blood Cell Count 3.29 10^6/uL (4.70-6.10); Red Cell Dist. Width 17.5 % (11.5-14.5); White Blood Cell Count 10.2 10^3/uL (4.8-10.8)
[2024-07-30 05:46] LABS: Blood Urea Nitrogen 19 mg/dl (9-20); Calcium 8.3 mg/dl (8.4-10.2); Carbon Dioxide 27 mmol/L (22-30); Chloride 102 mmol/L (98-107); Estimated Creatinine Clearance 55 ml/min; Glucose 127 mg/dl (70-99); Magnesium 1.7 mg/dl (1.6-2.3); Potassium 4.1 mmol/L (3.5-5.1); Sodium 139 mmol/L (135-145); eGFR > 60.00
[2024-07-30 07:28] LABS: Glucose - Point of Care 120 mg/dl (70-99)
[2024-07-30 07:30] VITALS: BP 143/67
[2024-07-30] MEDS: MAGNESIUM SULFATE 50 IV (07:59)
[2024-07-30] MEDS: PROTONIX IV 40 MG IV ×2 (08:00→20:39)
[2024-07-30] MEDS: XIFAXAN 275 MG PO (08:00)
[2024-07-30] MEDS: NSS (PRESERVATIVE FREE) 10 ML IV ×2 (08:00→20:38)
[2024-07-30] MEDS: MESTINON 30 MG PO ×2 (08:01→20:37)
[2024-07-30] MEDS: SOLU-CORTEF 25 MG IV ×2 (08:01→20:38)
[2024-07-30] MEDS: NOVOLOG FLEXPEN-LOW RESISTANCE SC (08:03)
[2024-07-30 11:58] LABS: Glucose - Point of Care 196 mg/dl (70-99)
[2024-07-30] MEDS: NOVOLOG FLEXPEN-LOW RESISTANCE 1 UNITS SC ×2 (12:18→17:22)
[2024-07-30 13:14] VITALS: BP 107/61; PULSE 76
[2024-07-30 15:00] VITALS: BP 140/66
--- NOTE | 2024-07-30 15:39 | W.PN.HOSP.TC ---
Addendum entered and electronically signed by Mora Cerda MD 07/30/24 16:10:
I saw and evaluated the patient independently. I reviewed the resident�s note and agree with findings and plan as documented by Dr. Forrest.
GENERAL: chronically ill appearing male in no apparent distress
HEENT: NC/AT
HEART: regular rate and rhythm, +S1, +S2
LUNGS : clear to auscultation bilaterally
ABDOM: soft, nontender, nondistended, + bowel sounds
EXT: no cyanosis, clubbing, or edema--skin changes c/w scleroderma
NEUROLOGIC: grossly intact
SBO--apprec gen surgery--tolerating diet
Syncope--suspect secondary to dehydration with ongoing GI symptoms--although symptomatic anemia could contribute--HGB 7.5, 8.4, 9.1--given HGB stable will NOT transfuse --trend H&H-- EKG with sinus rhythm and nonspecific ST-T changes. Not on any
steve blocking agents. Last known echo in April 2023 showed EF of 60 to 65% no significant valvular heart disease. Mild MR was noted
Fall from syncope--patient had a CT of the head and cervical spine without any acute pathology. Abdomen pelvis CT shows- Acute burst fracture of T12 as above. Minimal fracture fragment retropulsion, no associated high-grade narrowing of the canal.
He is in significant pain from the fracture. No sciatica. No lower extremity strength issue--apprec neurosurgery, TLSO brace ordered when patient is ambulating/weightbearing-- cont pain control--PT/OT
fever--resolved--cultures neg to date
Scleroderma with SIBO--continue with rifaximin. On chronic prednisone--will switch to stress dose steroids--will need to decrease back to outpt doses at d/c
[place]--suspect secondary to GI volume losses--resolved--can restart losartan.
anemia of chronic disease---lower than baseline--? dilutional--no acute bleeding noted--HGB down to 7.5 on 07/26/24 --(11.6 on 07/20)--pt admitted to vomiting black coffee ground looking material over the holidays...s/p 1 unit pRBC and HGB
up to 8.4, now 9.1--apprec GI, s/p EGD 07/29/24 with short segment of Pickard's--retained food in stomach--no other significant findings
History of CAD status post prior coronary stents-continue with aspirin.
Full code
hopeful d/c to [facility]--await consult PM&R
Original Note:
Today's Communication/Plan
-
Physiatry consult and referral to an acute rehab
Assessment / Plan
Assessment / Plan
Impression
Patient is a 74 year old male admitted with small bowel obstruction secondary to chronic dysmotility issues secondary to scleroderma. Patient reports severe back pain secondary to T12 burst fracture and feels very weak and tired. He had black
stools today, his hemoglobin has remained stable around 8-9. He is currently on low residue diet and tolerating it well
Assessment/plan
1.Small bowel obstruction secondary to chronic dysmotility from scleroderma
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
Infectious workup until now has been negative, no leukocytes in stool, norovirus negative, Campylobacter negative, Salmonella Shigella C. difficile testing pending, blood cultures negative
GI consult appreciated -patient's hemoglobin stable, plan to do endoscopy today to assess the source of bleeding
Repeat abdominal x-ray showed no significant dilated air-filled loops of bowel
General surgery recommended to advance diet to low residue which the patient has been tolerating well
Patient's hemoglobin stable around 9 right now
Endoscopy 07/29/24
Impression: - Normal proximal esophagus.
- Small amount of retained fluid in the mid esophagus,
suctioned and cleared.
- [place]-colored mucosa suspicious for short-segment
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 Biopsied.
- Otherwise, normal esophagus without any evidence of
esophagitis, jimy-resendez tears or ulcerations
- Multiple, benign appearing gastric polyps.
Endoscopically, consistent with benign fundic gland
polyps and left intact as all were less than 1 cm
- A small amount of food (residue) in the gastric
antrum
- Otherwise, normal stomach on direct and retroflexion
views
- Small amount of retained food/residue in the
examined duodenum up to the third portion
- The examination was otherwise normal.
GI suggested outpatient follow-up with the patient and signed off
General Surgery signed off as patient is currently not in obstruction and recommended to continue low residue diet or pur�ed diet.
PT/OT evaluation done who suggested acute rehab, patient to have physiatry consult on , July 31, 2024 for [facility]
2.Syncope-
-Suspect secondary to dehydration with ongoing GI symptoms and anemia
EKG with sinus rhythm and nonspecific ST-T changes. Not on any steve blocking agents. Last known echo in April 2023 showed EF of 60 to 65% no significant valvular heart disease. Mild MR was noted
3.Fall from syncope
Patient had a CT of the head and cervical spine without any acute pathology.
Abdomen pelvis CT shows- Acute burst fracture of T12 as above. Minimal fracture fragment retropulsion, no associated high-grade narrowing of the canal
Significant pain from the fracture. No sciatica. No lower extremity strength issue
Neurosurgery consult appreciated, TLSO brace ordered when patient is ambulating/weightbearing
Scleroderma with SIBO--continue with rifaximin. On chronic prednisone--will switch to stress dose steroids
[place]--resolved
Anemia--patient's hemoglobin dropped to 7.5 on July 26, 2024 and 1 pint of blood was transfused. Patient's hemoglobin has been stable since then. Hemoglobin 9.1 07/28/2024 and 9 on 07/29/24, 8.4 on July 30, 2024
History of CAD status post prior coronary stents-continue with aspirin.
PT/OT recommended acute rehab with skilled therapy of 3 or more hours daily due to medical complexity and physical limitations
OT evaluation done who suggested acute rehab due to physical limitations
Physiatry consult pending
Full code
DVT prophylaxis-sequential compression devices
Anticipated Discharge: 24 - 48 hours
Subjective/Interval History
-
Date of Service: July 30, 2024
No active issues, patient had a bowel movement yesterday couple of hours after endoscopy that was dark slightly blackish in color, no other issues other than feeling a bit tired
Objective Data
-
Labs:
Laboratory Results
07/30/24
04:39
WBC 10.2
Hgb 8.4 L
Hct 26.1 L
Plt Count 247
Sodium 139
Potassium 4.1
Chloride 102
Carbon Dioxide 27
BUN 19
Creatinine 1.2
Glucose 127 H
Calcium 8.3 L
Vital Signs:
Vital Signs
Temp Pulse Resp BP Pulse Ox
98.6 F 84 18 143/67 95
07/30/24 07:30 07/30/24 07:30 07/30/24 07:30 07/30/24 07:30 07/30/24 07:30
I&O
07/29/24 07/30/24 07/31/24
06:59 06:59 06:59
Intake Total 1680 / 1680 600 / 600
Balance 1680 / 1680 600 / 600
Review of Systems
-
All other systems: Reviewed and negative
Physical Exam
-
General: Conversant, Appears Chronically Ill and Other (Complains of back pain)
HEENT: Normocephalic, Atraumatic, Anicteric and Other (Pale)
Respiratory: Clear to Auscultation
Cardiac: Regular Rhythm and S1/S2
GI: Soft, Nontender, Nondistended and Normal Bowel Sounds
Musculoskeletal: No Clubbing, No Cyanosis and No Edema
Skin: Warm
Neuro: Awake, Oriented and No Motor Deficits
Psych: Calm
[2024-07-30 16:50] LABS: Glucose - Point of Care 161 mg/dl (70-99)
[2024-07-30] MEDS: LOVENOX 30 MG SC (17:23)
[2024-07-30] MEDS: ASPIR LOW (ENTERIC COATED) 81 MG PO (20:38)
[2024-07-30 23:00] VITALS: BP 155/75
[2024-07-31 07:30] VITALS: BP 141/74
[2024-07-31] MEDS: NOVOLOG FLEXPEN-LOW RESISTANCE SC ×3 (08:30→17:23)
[2024-07-31 09:47] LABS: % Basophils 0.3 % (0-2); % Eosinophils 1.4 % (0-6); % Immature Granulocytes 0.8 % (0-0.5); % Lymphocytes 13.3 % (20.5-51.1); % Monocytes 9.1 % (1.7-9.3); % Neutrophils 75.1 % (42.2-75.2); Absolute Eosinophils 0.2 10^3/uL (0-0.7); Absolute Immature Granulocytes 0.1 10^3/uL (0-0.05); Absolute Lymphocytes 1.5 10^3/uL (1.2-3.4); Absolute Monocytes 1.1 10^3/uL (0.1-0.6); Absolute Neutrophils 8.6 10^3/uL (1.4-6.5); Hematocrit 28.9 % (39.0-52.0); Mean Corp Hgb Conc. 31.1 g/dL (33.0-37.0); Mean Corpuscular Hgb 25.1 pg (27.0-31.0); Mean Corpuscular Volume 80.5 fL (80.0-94.0); Mean Platelet Volume 9.5 fL (7.4-10.4); Nucleated Red Blood Cells % 0 % (-); Platelet Count 295 10^3/uL (130-400); Red Blood Cell Count 3.59 10^6/uL (4.70-6.10); Red Cell Dist. Width 17.8 % (11.5-14.5); White Blood Cell Count 11.5 10^3/uL (4.8-10.8)
[2024-07-31 10:03] LABS: Blood Urea Nitrogen 21 mg/dl (9-20); Calcium 8.2 mg/dl (8.4-10.2); Carbon Dioxide 26 mmol/L (22-30); Chloride 102 mmol/L (98-107); Estimated Creatinine Clearance 55 ml/min; Glucose 108 mg/dl (70-99); Magnesium 2.1 mg/dl (1.6-2.3); Potassium 3.7 mmol/L (3.5-5.1); Sodium 139 mmol/L (135-145); eGFR > 60.00
--- NOTE | 2024-07-31 10:09 | W.PN.HOSP.TC ---
Addendum entered and electronically signed by Mora Cerda MD 07/31/24 15:13:
I saw and evaluated the patient independently. I reviewed the resident�s note and agree with findings and plan as documented by Dr. Forrest.
GENERAL: chronically ill appearing male in no apparent distress
HEENT: NC/AT
HEART: regular rate and rhythm, +S1, +S2
LUNGS : clear to auscultation bilaterally
ABDOM: soft, nontender, nondistended, + bowel sounds
EXT: no cyanosis, clubbing, or edema--skin changes c/w scleroderma
NEUROLOGIC: grossly intact
SBO--apprec gen surgery--tolerating diet
Syncope--suspect secondary to dehydration with ongoing GI symptoms--although symptomatic anemia could contribute--HGB 7.5, 8.4, 9.1--given HGB stable will NOT transfuse --trend H&H-- EKG with sinus rhythm and nonspecific ST-T changes. Not on any
steve blocking agents. Last known echo in April 2023 showed EF of 60 to 65% no significant valvular heart disease. Mild MR was noted
Fall from syncope--patient had a CT of the head and cervical spine without any acute pathology. Abdomen pelvis CT shows- Acute burst fracture of T12 as above. Minimal fracture fragment retropulsion, no associated high-grade narrowing of the canal.
He is in significant pain from the fracture. No sciatica. No lower extremity strength issue--apprec neurosurgery, TLSO brace ordered when patient is ambulating/weightbearing-- cont pain control--PT/OT
fever--resolved--cultures neg to date
Scleroderma with SIBO--continue with rifaximin. On chronic prednisone--will switch to stress dose steroids--will need to decrease back to outpt doses at d/c
[place]--creat now at baseline--suspect secondary to GI volume losses--resolved--can restart losartan.
anemia of chronic disease---lower than baseline--? dilutional--no acute bleeding noted--HGB down to 7.5 on 07/26/24 --(11.6 on 07/20)--pt admitted to vomiting black coffee ground looking material over the Jo holidays...s/p 1 unit pRBC--apprec
GI, s/p EGD 07/29/24 with short segment of Pickard's--retained food in stomach--no other significant findings
History of CAD status post prior coronary stents-continue with aspirin.
Full code
await consult PM&R--insurance denied acute rehab
Original Note:
Today's Communication/Plan
-
Physiatry consult
Assessment / Plan
Assessment / Plan
Impression
Patient is a 74 year old male admitted with small bowel obstruction secondary to chronic dysmotility issues secondary to scleroderma. Patient reports severe back pain secondary to T12 burst fracture and feels very weak and tired. He had diarrhea
this morning at 5am on 07/31/2024, 3 episodes,dark in color but not blackish, his hemoglobin has remained stable around 8-9. He is currently on low residue diet and tolerating it well
Assessment/plan
1.Small bowel obstruction secondary to chronic dysmotility from scleroderma
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
Infectious workup until now has been negative, no leukocytes in stool, norovirus negative, Campylobacter negative, Salmonella Shigella C. difficile testing pending, blood cultures negative
GI consult appreciated -patient's hemoglobin stable, plan to do endoscopy today to assess the source of bleeding
Repeat abdominal x-ray showed no significant dilated air-filled loops of bowel
General surgery recommended to advance diet to low residue which the patient has been tolerating well
Patient's hemoglobin stable around 9 right now
Endoscopy 07/29/24
Impression: - Normal proximal esophagus.
- Small amount of retained fluid in the mid esophagus,
suctioned and cleared.
- [place]-colored mucosa suspicious for short-segment
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
C0-M1 per [place] criteria. Biopsied.
- Otherwise, normal esophagus without any evidence of
esophagitis, jimy-resendez tears or ulcerations
- Multiple, benign appearing gastric polyps.
Endoscopically, consistent with benign fundic gland
polyps and left intact as all were less than 1 cm
- A small amount of food (residue) in the gastric
antrum
- Otherwise, normal stomach on direct and retroflexion
views
- Small amount of retained food/residue in the
examined duodenum up to the third portion
- The examination was otherwise normal.
GI suggested outpatient follow-up with the patient and signed off
General Surgery signed off as patient is currently not in obstruction and recommended to continue low residue diet or pur�ed diet.
PT/OT evaluation done who suggested acute rehab, patient to have physiatry consult on , July 31, 2024 for [facility]
2.Syncope-
-Suspect secondary to dehydration with ongoing GI symptoms and anemia
EKG with sinus rhythm and nonspecific ST-T changes. Not on any steve blocking agents. Last known echo in April 2023 showed EF of 60 to 65% no significant valvular heart disease. Mild MR was noted
3.Fall from syncope
Patient had a CT of the head and cervical spine without any acute pathology.
Abdomen pelvis CT shows- Acute burst fracture of T12 as above. Minimal fracture fragment retropulsion, no associated high-grade narrowing of the canal
Significant pain from the fracture. No sciatica. No lower extremity strength issue
Neurosurgery consult appreciated, TLSO brace ordered when patient is ambulating/weightbearing
Scleroderma with SIBO--continue with rifaximin. On chronic prednisone--will switch to stress dose steroids
[place]--resolved
Anemia--patient's hemoglobin dropped to 7.5 on July 26, 2024 and 1 pint of blood was transfused. Patient's hemoglobin has been stable since then. Hemoglobin 9.1 07/28/2024 and 9 on 07/29/24, 8.4 on July 30, 2024
History of CAD status post prior coronary stents-continue with aspirin.
PT/OT recommended acute rehab with skilled therapy of 3 or more hours daily due to medical complexity and physical limitations
OT evaluation done who suggested acute rehab due to physical limitations
Physiatry consult pending
Full code
DVT prophylaxis-sequential compression devices
Anticipated Discharge: 24 - 48 hours
Subjective/Interval History
-
Date of Service: July 31, 2024
3 episodes of loose stools/diarrhea at 5 am,dark brown in color
Objective Data
-
Labs:
Laboratory Results
07/31/24
07:26
WBC 11.5 H
Hgb 9.0 L
Hct 28.9 L
Plt Count 295
Sodium 139
Potassium 3.7
Chloride 102
Carbon Dioxide 26
BUN 21 H
Creatinine 1.2
Glucose 108 H
Calcium 8.2 L
Vital Signs:
Vital Signs
Temp Pulse Resp BP Pulse Ox
98.0 F 74 18 141/74 97
07/31/24 07:30 07/31/24 07:30 07/31/24 07:30 07/31/24 07:30 07/31/24 07:30
I&O
07/30/24 07/31/24 08/01/24
06:59 06:59 06:59
Intake Total 600 / 600 1080 / 1080
Balance 600 / 600 1080 / 1080
Review of Systems
-
All other systems: Reviewed and negative
Physical Exam
-
General: Pain (back pain), Appears Chronically Ill and Other (pale,tired feeling weak)
HEENT: Normocephalic, Atraumatic and Moist Mucous Membranes
Respiratory: Clear to Auscultation
Cardiac: Regular Rhythm and S1/S2
GI: Soft, Nontender, Nondistended and Normal Bowel Sounds
Musculoskeletal: No Clubbing, No Cyanosis and No Edema
Skin: Warm and Other (pale)
Neuro: Awake, Oriented and No Motor Deficits
Psych: Calm
[2024-07-31] MEDS: MESTINON 30 MG PO ×2 (10:16→19:48)
[2024-07-31] MEDS: XIFAXAN 275 MG PO (10:17)
[2024-07-31] MEDS: NSS (PRESERVATIVE FREE) 10 ML IV ×2 (10:19→19:50)
[2024-07-31] MEDS: SOLU-CORTEF 25 MG IV ×2 (10:19→19:50)
[2024-07-31] MEDS: PROTONIX IV 40 MG IV ×2 (10:19→19:50)
[2024-07-31 14:16] LABS: Glucose - Point of Care 115 mg/dl (70-99)
[2024-07-31 14:16] LABS: Glucose - Point of Care 163 mg/dl (70-99)
[2024-07-31 14:16] LABS: Glucose - Point of Care 124 mg/dl (70-99)
--- NOTE | 2024-07-31 14:33 | CM ---
Addendum entered by Nicole Grace 08/01/24 16:28:
CM spoke with patient son Dedrick. patient peer to peer was denied and patient family aware; they are reviewing options and will discuss further appeal vs home with VN, or personal care. CM will continue to follow for discharge planning needs.
Plan; pending further appeal
Addendum entered by Nicole Grace 08/01/24 14:22:
Dr. Mays called appeal to [phone] and CM faxed appeal request to [phone]
Addendum entered by Nicole Grace 07/31/24 16:29:
Patient updated and discussion about SNF options reviewed. CM awaiting PM&R consult for appeal.
Original Note:
Patient denied Auth for [facility] and recommendation is for lower level of care such as SNF. CM will go to talk to patient and awaiting PM&R consult. CM will continue to follow for discharge planning needs.
Plan; SNF
[2024-07-31 15:00] VITALS: BP 140/87
[2024-07-31 16:28] VITALS: BP 140/87
[2024-07-31 17:08] LABS: Glucose - Point of Care 138 mg/dl (70-99)
[2024-07-31] MEDS: LOVENOX 30 MG SC (19:47)
[2024-07-31] MEDS: ASPIR LOW (ENTERIC COATED) 81 MG PO (19:49)
[2024-07-31 21:37] LABS: Glucose - Point of Care 173 mg/dl (70-99)
[2024-07-31 23:22] VITALS: BP 122/84
--- NOTE | 2024-08-01 06:56 | W.PN.HOSP.TC ---
Addendum entered and electronically signed by Mora Cerda MD 08/01/24 16:27:
I saw and evaluated the patient independently. I reviewed the resident�s note and agree with findings and plan as documented by Dr. Forrest.
GENERAL: chronically ill appearing male in no apparent distress
HEENT: NC/AT
HEART: regular rate and rhythm, +S1, +S2
LUNGS : clear to auscultation bilaterally
ABDOM: soft, nontender, nondistended, + bowel sounds
EXT: no cyanosis, clubbing, or edema--skin changes c/w scleroderma
NEUROLOGIC: grossly intact
SBO--apprec gen surgery--tolerating diet
Syncope--suspect secondary to dehydration with ongoing GI symptoms--although symptomatic anemia could contribute--HGB 7.5, 8.4, 9.1--given HGB stable will NOT transfuse-- EKG with sinus rhythm and nonspecific ST-T changes. Not on any steve blocking
agents. Last known echo in April 2023 showed EF of 60 to 65% no significant valvular heart disease. Mild MR was noted
Fall from syncope--patient had a CT of the head and cervical spine without any acute pathology. Abdomen pelvis CT shows- Acute burst fracture of P77--Rpsgzle fracture fragment retropulsion, no associated high-grade narrowing of the canal. He is in
significant pain from the fracture. No sciatica. No lower extremity strength issue--apprec neurosurgery, TLSO brace ordered when patient is ambulating/weightbearing-- cont pain control--PT/OT
fever--resolved--cultures neg to date
leukocytosis--WBC starting to rise--up to 12.2--no further diarrhea--check OBS series
Scleroderma with SIBO--continue with rifaximin. On chronic prednisone--will switch to stress dose steroids--will need to decrease back to outpt doses
FLORENCE--creat now at baseline--suspect secondary to GI volume losses--resolved--can restart losartan.
anemia of chronic disease---lower than baseline--? dilutional--no acute bleeding noted--HGB down to 7.5 on 12/28/24 --(11.6 on 07/20)--pt admitted to vomiting black coffee ground looking material over the Jo holidays...s/p 1 unit pRBC--apprec
GI, s/p EGD 07/29/24 with short segment of Pickard's--retained food in stomach--no other significant findings
History of CAD status post prior coronary stents-continue with aspirin.
Full code
apprec PM&R--insurance denied acute rehab--appeal denied as well
Original Note:
Today's Communication/Plan
-
Obstruction series
Monitor blood pressure and WBC count
Assessment / Plan
Assessment / Plan
Impression
Patient is a 74 year old male admitted with small bowel obstruction secondary to chronic dysmotility issues secondary to scleroderma. Patient reports severe back pain secondary to T12 burst fracture and feels very weak and tired. He had diarrhea
this morning at 5am on 07/31/2024, 3 episodes,dark in color but not blackish, his hemoglobin has remained stable around 8-9. He is currently on low residue diet and tolerating it well
Assessment/plan
1.Small bowel obstruction secondary to chronic dysmotility from scleroderma
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
Infectious workup until now has been negative, no leukocytes in stool, norovirus negative, Campylobacter negative, Salmonella Shigella C. difficile testing pending, blood cultures negative
GI consult appreciated -patient's hemoglobin stable, plan to do endoscopy today to assess the source of bleeding
Repeat abdominal x-ray showed no significant dilated air-filled loops of bowel
General surgery recommended to advance diet to low residue which the patient has been tolerating well
Patient's hemoglobin stable around 9 right now
Endoscopy 07/29/24
Impression: - Normal proximal esophagus.
- Small amount of retained fluid in the mid esophagus,
suctioned and cleared.
- [place]-colored mucosa suspicious for short-segment
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 Biopsied.
- Otherwise, normal esophagus without any evidence of
esophagitis, jimy-resendez tears or ulcerations
- Multiple, benign appearing gastric polyps.
Endoscopically, consistent with benign fundic gland
polyps and left intact as all were less than 1 cm
- A small amount of food (residue) in the gastric
antrum
- Otherwise, normal stomach on direct and retroflexion
views
- Small amount of retained food/residue in the
examined duodenum up to the third portion
- The examination was otherwise normal.
GI suggested outpatient follow-up with the patient and signed off
General Surgery signed off as patient is currently not in obstruction and recommended to continue low residue diet or pur�ed diet.
2.Syncope-
-Suspect secondary to dehydration with ongoing GI symptoms and anemia
EKG with sinus rhythm and nonspecific ST-T changes. Not on any steve blocking agents. Last known echo in April 2023 showed EF of 60 to 65% no significant valvular heart disease. Mild MR was noted
3.Fall from syncope
Patient had a CT of the head and cervical spine without any acute pathology.
Abdomen pelvis CT shows- Acute burst fracture of T12 as above. Minimal fracture fragment retropulsion, no associated high-grade narrowing of the canal
Significant pain from the fracture. No sciatica. No lower extremity strength issue
Neurosurgery consult appreciated, TLSO brace ordered when patient is ambulating/weightbearing
Plan is to try ice to the area to break up muscle spasm/decrease inflammation, continue physical therapy with core strengthening and use topical pain medications as the patient does not want to take oral at this time.
4.Anemia--patient's hemoglobin dropped to 7.5 on July 26, 2024 (coffee ground emesis)-and 1 pint of blood was transfused. Patient's hemoglobin has been stable since then. endoscopy negative, Hemoglobin stable around 8-9. No acute concerns on
endoscopy, outpatient GI evaluation and monitoring.
Scleroderma with SIBO--continue with rifaximin. On chronic prednisone--will switch outpatient dose on discharge
FLORENCE--resolved
History of CAD status post prior coronary stents-continue with aspirin.
Essential hypertension-amlodipine 5 mg daily, monitor closely
Hyperlipidemia: Statin
Leukocytosis: Could be related to steroids/1 episode of fever, workup negative, no fever in last 48 hours
PT/OT evaluation done who suggested acute rehab, which was denied and based on physiatry consult by Dr.Van Ko Alcala, plan is to appeal the decision and tried to place the patient in an acute rehab
Full code
DVT prophylaxis-sequential compression devices
Anticipated Discharge: 24 - 48 hours
Subjective/Interval History
-
Date of Service: August 01, 2024
No active issues,patient's condition is static
Complains of nausea and abdominal discomfort
Objective Data
-
Labs:
Laboratory Results
08/01/24
06:00
WBC Pending
Hgb Pending
Hct Pending
Plt Count Pending
Sodium Pending
Potassium Pending
Chloride Pending
Carbon Dioxide Pending
BUN Pending
Creatinine Pending
Glucose Pending
Calcium Pending
Vital Signs:
Vital Signs
Temp Pulse Resp BP Pulse Ox
98.1 F 81 18 122/84 95
07/31/24 23:22 07/31/24 23:22 07/31/24 23:22 07/31/24 23:22 07/31/24 23:22
I&O
07/30/24 07/31/24 08/01/24
06:59 06:59 06:59
Intake Total 600 / 600 1080 / 1080 840 / 840
Balance 600 / 600 1080 / 1080 840 / 840
Review of Systems
-
All other systems: Reviewed and negative
Physical Exam
-
General: Appears Chronically Ill (pale,weak and frail)
HEENT: Normocephalic, Atraumatic and Moist Mucous Membranes
Respiratory: Clear to Auscultation
Cardiac: Regular Rhythm and S1/S2
GI: Soft, Nontender, Nondistended and Normal Bowel Sounds
Musculoskeletal: No Clubbing, No Cyanosis and No Edema
Skin: Warm, Dry and Other (Skin changes consistent with scleroderma)
Neuro: Awake, Oriented and No Motor Deficits
Psych: Calm
[2024-08-01 07:00] VITALS: BP 172/75
[2024-08-01 07:14] LABS: Glucose - Point of Care 110 mg/dl (70-99)
[2024-08-01 08:40] LABS: % Basophils 0.4 % (0-2); % Eosinophils 1.4 % (0-6); % Immature Granulocytes 0.5 % (0-0.5); % Lymphocytes 13.6 % (20.5-51.1); % Monocytes 9.5 % (1.7-9.3); % Neutrophils 74.6 % (42.2-75.2); Absolute Basophils 0.1 10^3/uL (0-0.2); Absolute Eosinophils 0.2 10^3/uL (0-0.7); Absolute Immature Granulocytes 0.1 10^3/uL (0-0.05); Absolute Lymphocytes 1.7 10^3/uL (1.2-3.4); Absolute Monocytes 1.2 10^3/uL (0.1-0.6); Absolute Neutrophils 9.1 10^3/uL (1.4-6.5); Hematocrit 29.2 % (39.0-52.0); Hemoglobin 9.1 g/dL (13.0-18.0); Mean Corp Hgb Conc. 31.2 g/dL (33.0-37.0); Mean Corpuscular Hgb 25.1 pg (27.0-31.0); Mean Corpuscular Volume 80.4 fL (80.0-94.0); Nucleated Red Blood Cells % 0 % (-); Platelet Count 349 10^3/uL (130-400); Red Blood Cell Count 3.63 10^6/uL (4.70-6.10); Red Cell Dist. Width 17.6 % (11.5-14.5); White Blood Cell Count 12.2 10^3/uL (4.8-10.8)
--- NOTE | 2024-08-01 08:45 | CON.MD ---
Consultation - Medical
-
Referring Provider:�Dr. Mora Cerda
Chief Complaint:�T12 burst fracture
�
History of Present Illness:�74-year-old male with PMH (as below) presented to [facility] on 07/24/2024 after syncopal episode trying to take a shower after multiple episodes of vomiting. Syncope thought secondary to dehydration from
vomiting. Found to have a small bowel obstruction likely secondary to chronic dysmotility from scleroderma. And a T12 burst fracture. Seen by neurosurgery recommending TLSO brace. Was kept n.p.o. and given IV fluids. Noted with leukocytosis but
on chronic steroids for scleroderma. On 07/25/2024 he was tachycardic and spiked a fever. He had a negative infectious disease workup. Noted with anemia and given transfusion. Noted previously to have coffee ground emesis with concern for GI
bleed and started on Protonix twice daily. Repeat abdominal x-ray with no significant dilated air-filled loops of bowel. Started on low residue diet but had worsening back pain and black tarry stools. On 07/29 he had an EGD noting a normal
proximal esophagus, salmon-colored mucosa suspicious for short segment Pickard's esophagus which was biopsied. Benign gastric polyps. Suggested to have strict avoidance of NSAIDs and started on a clear liquid diet with a PPI.
Overall he is still having pain. Would be interested in trying something topical. May need medications affect his stomach, cannot take NSAIDs, constipation and obstruction issues have been a problem for him for many years and so he tries avoid
opioids.
�
Past Medical History:�Scleroderma, HTN, HLD, small bowel obstruction, pulmonary fibrosis, ASCVD, type 2 diabetes, GERD, chronic lumbar spine pain
Procedure History:�Cardiac stents x 6, cholecystectomy, 3 at this dural steroid injections 2023 with success
Family History:�None pertinent
�
Social History:�
Functional Level Premorbidly:�Independent with all activities�
Functional Level Currently:�Mod assist upper extremity dressing, max assist lower extremity dressing and toileting. Min assist transfers. Ambulating 60 feet x 2 rolling walker min assist.
�
Tobacco:�Denies�
Alcohol:�Denies�
Drug use:�Denies�
�
Lives with:�Alone
24-hour assistance available:�No
Number of floors:�2
# steps to enter:�2-3
# steps to second floor: Full flight
Potential First floor set up:�Yes
Driving:�Yes
Occupation:�Working
�
�
Allergies:�
Allergy/AdvReac Type Severity Reaction Status Date / Time
No Known Allergies Allergy Verified 07/24/24 07:44
�
Review of Systems:�
Constitutional: (x) abNormal _fatigue
Eye: (x) Normal _
Ear/Nose/Throat: (x) Normal _
Respiratory: (x) Normal _
Cardiovascular: (x) Normal _
Gastrointestinal: (x) abNormal _chronic bowel issues including partial small bowel obstructions
Genitourinary: (x) Normal _
Musculoskeletal: (x) abNormal _back pain
Integumentary: (x) abNormal _decreased mobility of fingers with scleroderma
Neurologic: (x) Normal _
Psychiatric: (x) Normal _
Endocrine: (x) Normal _
Hematologic/Lymphatic: (x) Normal _
Allergic/Immunologic: (x) Normal _
�
Medications:�
Active Current Visit Medication List
Category Date Time Status
0.9% Sodium Chloride [Nss (Preservative Free)] Med 07/29/24 20:00 Active
10 ml IV BID
Acetaminophen [Tylenol] Med 07/25/24 20:22 Active
650 mg PO Q4HPRN PRN
Amlodipine [Norvasc] Med 08/01/24 09:00 Active
5 mg PO DAILY
Aspirin Low Dose EC [Aspir Low (Enteric Coated)] Med 07/24/24 22:00 Active
81 mg PO HS
Dextrose 50%-Water [Dextrose 50% Syringe] Med 07/24/24 13:59 Active
12.5 grams IV [id number] PRN
Enoxaparin Sodium [Lovenox] Med 07/24/24 18:00 Active
30 mg SC QPM
Flush (0.9% Sodium Chloride) [Flush (Nss)] Med 07/24/24 15:00 Active
See Dose Instructions IV PER PROTOCOL
Glucagon [GlucaGen] Med 07/24/24 13:59 Active
1 mg IM PRN PRN
HYDROmorphone [Dilaudid] Med 07/24/24 13:30 Active
0.5 mg IV Q3HPRN PRN
Hydrocortisone Sod Succinate [Solu-Cortef] Med 07/24/24 13:30 Active
25 mg IV Q12
Insulin Aspart Corrective Low [Novolog Flexpen-Low Med 07/26/24 07:30 Active
Resistance]
See Protocol SC AC
Ondansetron Injectable [Zofran] Med 07/24/24 13:58 Active
4 mg IV Q6HPRN PRN
Pantoprazole [Protonix IV] Med 07/27/24 20:00 Active
40 mg IV BID
Pyridostigmine [Mestinon] Med 07/24/24 13:30 Active
30 mg PO BID
Rifaximin [Xifaxan] Med 07/24/24 15:15 Active
275 mg PO DAILY
Vitals:�
Temp Pulse Resp BP Pulse Ox
97.7 F 73 18 172/75 98
08/01/24 07:00 08/01/24 07:00 08/01/24 07:00 08/01/24 07:00 08/01/24 07:00
Height 5 ft 11 in
Actual Weight 70.8 kg
Body Mass Index (BMI) 21.8
�
Physical Exam:�
General Appearance/Observation: Well-developed, well-nourished male in no apparent distress.�
Pain/Comfort Assessment: Mild low back pain
Mood/Affect: Appropriate�
�
Integumentary/Operative Site:�
�� Pressure Ulcer Evaluation: absent over heels.�
�
Eyes: Conjunctiva/Lids: normal���� Pupils: pupils equal round and reactive to light and Accommodation�
Ears/Nose/Throat: oral mucosa moist,� throat clear.������������ Lips/Teeth/Gums: normal�
Neck: No muscle spasm or tenderness�
Cardiovascular: Heart: regular, no murmur�
Pulses: dorsalis pedis 2+ bilaterally�
Respiratory: Respiratory Effort/Chest Expansion: normal������� Auscultation: Clear to auscultation bilaterally�
Gastrointestinal: abdomen not tender, no distension, abdominal bowel sounds present
Genitourinary: No Rosales�
Extremities:�Edema: None�Cyanosis: None�Trophic�changes: None
Neurology Exam:
Orientation: Alert, Oriented to self, Time, Place�
Memory: Intact for recent medical concerns
Comprehension: Intact
Two step command: Intact
Cranial Nerves:
�� CNII:�Pupillary light reflex: Intact���
�� CN III, IV, : Extraocular muscles: Intact�
�� CN VII:�Facial movement: Symmetric
�� CN VIII:�Hearing: Normal
�� CN IX/X:�Speech & swallow: Normal,�Position of Uvula: Midline
�� CN XI:�Shoulder shrug: Symmetric
�� CN XII:�Tongue protrusion: Midline
Sensory:
�� Light touch: Intact in bilateral upper and lower extremities
�
Reflexes:
�� Biceps: 2+ bilaterally
�� Brachioradialis: 2+ bilaterally
�� Triceps: 2+ bilaterally
�� Patellar: 2+ bilaterally
�� Achilles: 2+ bilaterally
�� Babinski: Down going bilaterally
�� Clonus: None
�� Ofe: Negative bilaterally�
Musculoskeletal: Motor: (Manual muscle scale 0-5)�
Muscle SA EF WE EE FF FA HF KE DF EHL PF
Right� 5 5 5 5 4 4 4 5 5 5 5
Left 5 5 5 5 4 4 4 5 5 5 5
�
Tone: Normal in all extremities�
Range of Motion: Passively within functional limits in all extremities except for decreased in a finger flexion position bilateral hands
�
Lab Results
Laboratory Data
08/01/24 07:04
Total Bilirubin 0.8 mg/dl (0.2-1.3) 07/24/24 08:34
AST 27 U/L (17-59) 07/24/24 08:34
ALT 27 U/L (0-50) 07/24/24 08:34
Alkaline Phosphatase 82 U/L (38-126) 07/24/24 08:34
Total Protein 6.8 g/dl (6.3-8.2) 07/24/24 08:34
Albumin 4.4 g/dl (3.5-5.0) 07/24/24 08:34
�
Diagnostic Results:�as per HPI�
�
Assessment
74-year-old male PMH (Scleroderma, HTN, HLD, small bowel obstruction, pulmonary fibrosis, CAD, diabetes, reflux) with 07/24/2024 syncopal episode likely secondary to dehydration secondary to small bowel obstruction which is now resolved, T12 burst
fracture requiring TLSO brace and anemia with concern for GI bleeding on PPI with no active bleeding on endoscopy resulting in ADL and amatory dysfunction.
�
Plan�
PM&R�PT/OT to increase independence with ADLs, improve balance, coordination, endurance, strength, mobility, community reintegration, decreased burden of care on others and family education.�
�
T12 vertebral burst fracture: Current pain seems related to this. No decreased light touch in lower extremities, lower extremity strength is good.� Does not appear to be a neurologic concern in the legs.�
-������� Stop IV Dilaudid patient does not want oral medications at this time. Trial lidocaine patch.
-������� Avoid NSAIDs per endoscopy findings
-������� Try ice to the area to help break up muscle spasm and decrease inflammation.
-������� No heavy lifting
-������� Continue physical therapy to help with core strengthening.
-������� DEXA scan with her primary care provider and consider bisphosphonate if warranted with PCP or endocrinology.
Small bowel obstruction: Thought secondary chronic dysmotility from scleroderma. Appears to have resolved.
-Low residue diet and pyridostigmine/rifaximin
Concern for hematochezia/hematemesis: No concerns on endoscopy. Follow-up with GI as an outpatient. Avoid NSAIDs.
Fall from syncope: Thought secondary to dehydration with FLORENCE resolved.
HTN: Amlodipine 5 mg daily, monitor closely�
HLD: Statin�
ASCVD: Aspirin, not on statin, not on beta-ranjeet�
Diabetes: Insulin sliding scale
Scleroderma: steroids
Anemia: Concern for hematochezia/hematemesis. No acute concerns on endoscopy. Outpatient GI evaluation, continue to monitor.�
Leukocytosis: Likely steroid related. Had a fever with a negative workup.
Psych: Psychology consult.� Monitor mood, adjust medications as needed.�
Skin: monitor for pressure sores/rashes/lesions.�
Pain: acetaminophen as needed.�
Bladder: No retention concerns
GI Prophylaxis: Pantoprazole�
DVT Prophylaxis: Mechanical and Lovenox
Pulmonary: Incentive spirometry�
Safety: Continue to reinforce assistance with all transfers.�
Code Status:� Full code
Dispo�(date/plan/equipment needs): Home with family care.� Social history reviewed.�
Functional and Medical Goals:�Modified Independent with ADL�s, ambulation, transfers�
Discharge Destination:�Acute inpatient rehabilitation
�
Summary of recommendations:
-�Discharge Destination:�Acute inpatient rehabilitation
T12 vertebral burst fracture:
-������� Stop IV Dilaudid patient does not want oral medications at this time. Trial lidocaine patch.
-������� Avoid NSAIDs per endoscopy findings
-������� Try ice to the area to help break up muscle spasm and decrease inflammation.
-������� No heavy lifting
-������� Continue physical therapy to help with core strengthening.
-������� DEXA scan with her primary care provider and consider bisphosphonate if warranted with PCP or endocrinology.
Anemia: Concern for hematochezia/hematemesis. No acute concerns on endoscopy. Outpatient GI evaluation, continue to monitor.�
DVT Prophylaxis: Mechanical and Lovenox
Small bowel obstruction: Thought secondary chronic dysmotility from scleroderma. Appears to have resolved.
-Low residue diet and pyridostigmine/rifaximin
�
Thank you for allowing me to care for your patient. Please contact me with any questions or concerns.
[2024-08-01] MEDS: NOVOLOG FLEXPEN-LOW RESISTANCE SC (09:06)
[2024-08-01 09:13] LABS: Blood Urea Nitrogen 21 mg/dl (9-20); Calcium 8.5 mg/dl (8.4-10.2); Carbon Dioxide 28 mmol/L (22-30); Chloride 102 mmol/L (98-107); Estimated Creatinine Clearance 55 ml/min; Glucose 107 mg/dl (70-99); Magnesium 1.9 mg/dl (1.6-2.3); Potassium 3.8 mmol/L (3.5-5.1); Sodium 139 mmol/L (135-145); eGFR > 60.00
[2024-08-01] MEDS: XIFAXAN 275 MG PO (09:14)
[2024-08-01] MEDS: MESTINON 30 MG PO ×2 (09:14→21:16)
[2024-08-01] MEDS: NORVASC 5 MG PO (09:15)
[2024-08-01] MEDS: SOLU-CORTEF 25 MG IV (09:16)
[2024-08-01] MEDS: PROTONIX IV 40 MG IV ×2 (09:17→21:18)
[2024-08-01] MEDS: NSS (PRESERVATIVE FREE) 10 ML IV ×2 (09:17→21:18)
[2024-08-01 11:22] LABS: Glucose - Point of Care 154 mg/dl (70-99)
[2024-08-01] MEDS: ZOFRAN 4 MG IV (11:33)
[2024-08-01] MEDS: NOVOLOG FLEXPEN-LOW RESISTANCE 1 UNITS SC ×2 (11:37→17:51)
[2024-08-01 15:00] VITALS: BP 138/73
[2024-08-01 16:24] LABS: Glucose - Point of Care 165 mg/dl (70-99)
[2024-08-01 16:27] VITALS: BP 138/73
[2024-08-01] MEDS: LOVENOX 30 MG SC (17:50)
[2024-08-01] MEDS: ASPIR LOW (ENTERIC COATED) 81 MG PO (21:17)
[2024-08-01] MEDS: FLUSH (NSS) 1 FLUSH IV (21:18)
[2024-08-01 23:35] VITALS: BP 151/80
[2024-08-02 06:27] LABS: Glucose - Point of Care 127 mg/dl (70-99)
[2024-08-02 07:00] VITALS: BP 161/73
[2024-08-02 07:26] LABS: Glucose - Point of Care 142 mg/dl (70-99)
--- NOTE | 2024-08-02 08:13 | W.PN.HOSP.TC ---
Addendum entered and electronically signed by Mora Cerda MD 08/02/24 18:06:
I saw and evaluated the patient independently. I reviewed the resident�s note and agree with findings and plan as documented by Dr. Forrest.
GENERAL: chronically ill appearing male in no apparent distress
HEENT: NC/AT
HEART: regular rate and rhythm, +S1, +S2
LUNGS : clear to auscultation bilaterally
ABDOM: soft, nontender, nondistended, + bowel sounds
EXT: no cyanosis, clubbing, or edema--skin changes c/w scleroderma
NEUROLOGIC: grossly intact
SBO--apprec gen surgery--tolerating diet
Syncope--suspect secondary to dehydration with GI symptoms--although symptomatic anemia could contribute- HGB stable will NOT transfuse further-- EKG with sinus rhythm and nonspecific ST-T changes. Not on any steve blocking agents. Last known echo
in April 2023 showed EF of 60 to 65% no significant valvular heart disease. Mild MR was noted
Fall from syncope--patient had a CT of the head and cervical spine without any acute pathology. Abdomen pelvis CT shows- Acute burst fracture of A40--Hhbkejr fracture fragment retropulsion, no associated high-grade narrowing of the canal. He is in
significant pain from the fracture. No sciatica. No lower extremity strength issue--apprec neurosurgery, TLSO brace ordered when patient is ambulating/weightbearing-- cont pain control--PT/OT
fever--resolved--cultures neg to date
leukocytosis--WBC starting to rise--up to 15.8--no further diarrhea--OBS series neg--was on stress dose steroids but back to outpt doses, not febrile, no infectious complaints--if continues to rise, consider heme eval? ID?
Scleroderma with SIBO--continue with rifaximin. On chronic prednisone--will switch to stress dose steroids-- back to outpt doses
[place]--creat now at baseline--suspect secondary to GI volume losses--resolved--can restart losartan.
anemia of chronic disease---lower than baseline--? dilutional--no acute bleeding noted--HGB down to 7.5 on 07/26/24 --(11.6 on 07/20)--pt admitted to vomiting black coffee ground looking material over the holidays...s/p 1 unit pRBC--apprec
GI, s/p EGD 07/29/24 with short segment of Pickard's--retained food in stomach--no other significant findings
History of CAD status post prior coronary stents-continue with aspirin.
Full code
apprec PM&R--insurance denied acute rehab--appeal denied as well--pt and family deciding on options
Original Note:
Today's Communication/Plan
-
Relieve constipation
snf
Assessment / Plan
Assessment / Plan
Impression
Patient is a 74 year old male admitted with small bowel obstruction secondary to chronic dysmotility issues secondary to scleroderma. Patient reports severe back pain secondary to T12 burst fracture and feels very weak and tired. He had diarrhea
this morning at 5am on 07/31/2024, 3 episodes,dark in color but not blackish, his hemoglobin has remained stable around 8-9. He is currently on low residue diet and tolerating it well
Assessment/plan
1.Small bowel obstruction secondary to chronic dysmotility from scleroderma
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
Infectious workup until now has been negative, no leukocytes in stool, norovirus negative, Campylobacter negative, Salmonella Shigella C. difficile testing pending, blood cultures negative
GI consult appreciated -patient's hemoglobin stable, plan to do endoscopy today to assess the source of bleeding
Repeat abdominal x-ray showed no significant dilated air-filled loops of bowel
General surgery recommended to advance diet to low residue which the patient has been tolerating well
Patient's hemoglobin stable around 9 right now
Endoscopy 07/29/24
Impression: - Normal proximal esophagus.
- Small amount of retained fluid in the mid esophagus,
suctioned and cleared.
- [place]-colored mucosa suspicious for short-segment
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 Biopsied.
- Otherwise, normal esophagus without any evidence of
esophagitis, jimy-resendez tears or ulcerations
- Multiple, benign appearing gastric polyps.
Endoscopically, consistent with benign fundic gland
polyps and left intact as all were less than 1 cm
- A small amount of food (residue) in the gastric
antrum
- Otherwise, normal stomach on direct and retroflexion
views
- Small amount of retained food/residue in the
examined duodenum up to the third portion
- The examination was otherwise normal.
GI suggested outpatient follow-up with the patient and signed off
General Surgery signed off as patient is currently not in obstruction and recommended to continue low residue diet or pur�ed diet.
Obstruction series repeated due to rising TLC count,nausea and constipation-came back negative ,give miralax for constipation
2.Syncope-
-Suspect secondary to dehydration with ongoing GI symptoms and anemia
EKG with sinus rhythm and nonspecific ST-T changes. Not on any steve blocking agents. Last known echo in April 2023 showed EF of 60 to 65% no significant valvular heart disease. Mild MR was noted
3.Fall from syncope
Patient had a CT of the head and cervical spine without any acute pathology.
Abdomen pelvis CT shows- Acute burst fracture of T12 as above. Minimal fracture fragment retropulsion, no associated high-grade narrowing of the canal
Significant pain from the fracture. No sciatica. No lower extremity strength issue
Neurosurgery consult appreciated, TLSO brace ordered when patient is ambulating/weightbearing
Plan is to try ice to the area to break up muscle spasm/decrease inflammation, continue physical therapy with core strengthening and use topical pain medications as the patient does not want to take oral at this time.
4.Anemia--patient's hemoglobin dropped to 7.5 on July 26, 2024 (coffee ground emesis)-and 1 pint of blood was transfused. Patient's hemoglobin has been stable since then. endoscopy negative, Hemoglobin stable around 8-9. No acute concerns on
endoscopy, outpatient GI evaluation and monitoring.
Scleroderma with SIBO--continue with rifaximin. On chronic prednisone--will switch outpatient dose on discharge
[place]--resolved
History of CAD status post prior coronary stents-continue with aspirin.
Essential hypertension-amlodipine 5 mg daily, monitor closely
Hyperlipidemia: Statin
Leukocytosis: Could be related to steroids/1 episode of fever, workup negative, no fever in last 48 hours
PT/OT evaluation done who suggested acute rehab, which was denied and based on physiatry consult by Dr.Van Ko Alcala, appealled for acute [id number] is snf discussion
Full code
DVT prophylaxis-sequential compression devices
Anticipated Discharge: 24 - 48 hours
Subjective/Interval History
-
Date of Service: August 02, 2024
Constipation,last bowel movement on
Objective Data
-
Labs:
Laboratory Results
08/02/24
06:00
WBC Pending
Hgb Pending
Hct Pending
Plt Count Pending
Sodium Pending
Potassium Pending
Chloride Pending
Carbon Dioxide Pending
BUN Pending
Creatinine Pending
Glucose Pending
Calcium Pending
Vital Signs:
Vital Signs
Temp Pulse Resp BP Pulse Ox
98.1 F 77 18 151/80 99
08/01/24 23:35 08/01/24 23:35 08/01/24 23:35 08/01/24 23:35 08/01/24 23:35
I&O
08/01/24 08/02/24 08/03/24
06:59 06:59 06:59
Intake Total 840 / 840 800 / 800
Balance 840 / 840 800 / 800
Review of Systems
-
All other systems: Reviewed and negative
Physical Exam
-
General: Appears Chronically Ill (pale and tired)
HEENT: Normocephalic, Atraumatic and Moist Mucous Membranes
Respiratory: Clear to Auscultation
Cardiac: Regular Rhythm, S1/S2 and Tachycardic
GI: Soft, Nontender and Normal Bowel Sounds
Musculoskeletal: No Clubbing, No Cyanosis and No Edema
Skin: Warm, Dry and Other (sclerodermal changes)
Neuro: Awake, Oriented and No Motor Deficits
Psych: Calm
[2024-08-02] MEDS: MIRALAX 17 GRAMS PO (09:03)
[2024-08-02] MEDS: NOVOLOG FLEXPEN-LOW RESISTANCE SC ×2 (09:03→16:58)
[2024-08-02] MEDS: LIDOCAINE 4% PATCH 1 PATCH TOPICAL (09:04)
[2024-08-02] MEDS: NORVASC 5 MG PO (09:05)
[2024-08-02] MEDS: MESTINON 30 MG PO ×2 (09:05→20:31)
[2024-08-02] MEDS: DELTASONE 5 MG PO (09:05)
[2024-08-02] MEDS: LIPITOR 80 MG PO (09:06)
[2024-08-02] MEDS: PROTONIX 40 MG PO (09:06)
[2024-08-02] MEDS: XIFAXAN 275 MG PO (09:07)
[2024-08-02 10:24] VITALS: BP 123/89
[2024-08-02] MEDS: COLACE 100 MG PO (11:24)
[2024-08-02] MEDS: DILAUDID 0.5 MG IV (11:24)
[2024-08-02 11:47] LABS: Glucose - Point of Care 173 mg/dl (70-99)
[2024-08-02] MEDS: NOVOLOG FLEXPEN-LOW RESISTANCE 1 UNITS SC (12:00)
[2024-08-02 12:25] LABS: % Basophils 0.4 % (0-2); % Eosinophils 0.8 % (0-6); % Immature Granulocytes 0.6 % (0-0.5); % Lymphocytes 5.1 % (20.5-51.1); % Monocytes 7.8 % (1.7-9.3); % Neutrophils 85.3 % (42.2-75.2); Absolute Basophils 0.1 10^3/uL (0-0.2); Absolute Eosinophils 0.1 10^3/uL (0-0.7); Absolute Immature Granulocytes 0.1 10^3/uL (0-0.05); Absolute Lymphocytes 0.8 10^3/uL (1.2-3.4); Absolute Monocytes 1.2 10^3/uL (0.1-0.6); Absolute Neutrophils 13.5 10^3/uL (1.4-6.5); Hematocrit 34.5 % (39.0-52.0); Hemoglobin 10.8 g/dL (13.0-18.0); Mean Corp Hgb Conc. 31.3 g/dL (33.0-37.0); Mean Corpuscular Hgb 25.5 pg (27.0-31.0); Mean Corpuscular Volume 81.6 fL (80.0-94.0); Mean Platelet Volume 9.3 fL (7.4-10.4); Nucleated Red Blood Cells % 0 % (-); Platelet Count 440 10^3/uL (130-400); Red Blood Cell Count 4.23 10^6/uL (4.70-6.10); Red Cell Dist. Width 17.9 % (11.5-14.5); White Blood Cell Count 15.8 10^3/uL (4.8-10.8)
--- NOTE | 2024-08-02 13:46 | CM ---
Chart reviewed for d/c planning.
CM spoke w/ son, Dedrick. Dedrick informed CM of appeal that occurred as pt was denied acute rehab admission. Dedrick explained his confusion w/ appeal paperwork and was apparently told misinformation. CM unfortunately could not provide much guidance in
appeal information or next steps as CM has not been following throughout the time of appeal. Dedrick stated pt and family are still deciding on either doing further family appeal or pt going home w/ HH and poss. caregivers. CM inquired if pt and family
are willing to explore SNF instead. Per Dedrick, doesn't want pt to go to SNF and pt expresses he does not want to go to SNF. CM discussed what d/c plan home would look like and that process of HH and caregivers. CM explained home PT would work w/ pt
in the home a few days out of the week and evaluate pt in the home. CM stated if family wants to explore caregivers that will be an out of pocket cost depending on how many hours a day and how many days a week support is needed. Dedrick stated if pt
agrees to go home, he will be ok w/ [facility].
As requested, CM emailed Dedrick caregiver/[employer] information to have.
Per Dedrick, need to follow up w/ hospitalist to get update on pt to have a clear idea what his needs are and what pt's prognosis is looking like.
Plan: Family appears to still be deciding on further appeal vs home w/ HH and caregivers
CM will cont to follow for support and d/c planning
[2024-08-02] MEDS: GLYCERIN SUPPOSITORY ADULT 1 SUPP RECTAL (14:53)
[2024-08-02 15:32] VITALS: BP 162/75
[2024-08-02 16:51] LABS: Glucose - Point of Care 148 mg/dl (70-99)
[2024-08-02] MEDS: LOVENOX 30 MG SC (17:24)
[2024-08-02] MEDS: ASPIR LOW (ENTERIC COATED) 81 MG PO (20:32)
[2024-08-02] MEDS: COZAAR 50 MG PO (20:35)
[2024-08-02] MEDS: TYLENOL 650 MG PO (20:43)
[2024-08-02 21:11] LABS: Glucose - Point of Care 189 mg/dl (70-99)
[2024-08-02 23:55] VITALS: BP 135/68
[2024-08-03 07:00] VITALS: BP 138/79
--- NOTE | 2024-08-03 07:47 | W.PN.HOSP.TC ---
Addendum entered and electronically signed by Mora Cerda MD 08/03/24 14:18:
I saw and evaluated the patient independently. I reviewed the resident�s note and agree with findings and plan as documented by Dr. Forrest.
GENERAL: chronically ill appearing male in no apparent distress
HEENT: NC/AT
HEART: regular rate and rhythm, +S1, +S2
LUNGS : clear to auscultation bilaterally
ABDOM: soft, nontender, nondistended, + bowel sounds
EXT: no cyanosis, clubbing, or edema--skin changes c/w scleroderma
NEUROLOGIC: grossly intact
SBO--resolved--apprec gen surgery--tolerating diet
Syncope--suspect secondary to dehydration with GI symptoms and symptomatic anemia - HGB stable will NOT transfuse further--s/p 1 unit pRBC-- Last known echo in April 2023 showed EF of 60 to 65% no significant valvular heart disease. Mild MR was
noted
Fall from syncope--patient had a CT of the head and cervical spine without any acute pathology. Abdomen/pelvis CT shows- Acute burst fracture of S78--Bxvwefp fracture fragment retropulsion, no associated high-grade narrowing of the canal. He is in
significant pain from the fracture--apprec neurosurgery, TLSO brace ordered when patient is ambulating/weightbearing-- cont pain control--PT/OT
leukocytosis--WBC starting to rise--up to 15.8--no further diarrhea--OBS series neg--was on stress dose steroids but back to outpt doses (unclear if needs higher boost of chronic steroid therapy and this is not infectious?), not febrile, no
infectious complaints--consult ID--? heme consult
Scleroderma with SIBO--continue with rifaximin. On chronic prednisone--was on stress dose steroids-- back to outpt doses
[place]--creat now at baseline--suspect secondary to GI volume losses--resolved-- restarted losartan.
anemia of chronic disease---lower than baseline-HGB down to 7.5 on 07/26/24 --(11.6 on 07/20)--pt admitted to vomiting black coffee ground looking material over the holidays...s/p 1 unit pRBC--apprec GI, s/p EGD 07/29/24 with short segment
of Pickard's--retained food in stomach--no other significant findings
History of CAD status post prior coronary stents-continue with aspirin.
Full code
apprec PM&R--insurance denied acute rehab--Dr. Macias appealed and that was denied too--pt wants to appeal again prior to d/c--he wants to go either to [facility] or home--NOT SNF
Original Note:
Today's Communication/Plan
-
Trend leukocyte count
heme consult tomorrow
Blood culture
urianlysis with reflex to culture
Assessment / Plan
Assessment / Plan
Impression
Patient is a 74 year old male admitted with small bowel obstruction secondary to chronic dysmotility issues secondary to scleroderma. Patient reports severe back pain secondary to T12 burst fracture and feels very weak and tired. He had diarrhea
this morning at 5am on 07/31/2024, 3 episodes,dark in color but not blackish, his hemoglobin has remained stable around 8-9. He is currently on low residue diet and tolerating it well
Assessment/plan
1.Small bowel obstruction secondary to chronic dysmotility from scleroderma
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
Infectious workup until now has been negative, no leukocytes in stool, norovirus negative, Campylobacter negative, Salmonella Shigella C. difficile testing pending, blood cultures negative
GI consult appreciated -patient's hemoglobin stable, plan to do endoscopy today to assess the source of bleeding
Repeat abdominal x-ray showed no significant dilated air-filled loops of bowel
General surgery recommended to advance diet to low residue which the patient has been tolerating well
Patient's hemoglobin stable around 9 right now
Endoscopy 07/29/24
Impression: - Normal proximal esophagus.
- Small amount of retained fluid in the mid esophagus,
suctioned and cleared.
- [place]-colored mucosa suspicious for short-segment
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 Biopsied.
- Otherwise, normal esophagus without any evidence of
esophagitis, jimy-resendez tears or ulcerations
- Multiple, benign appearing gastric polyps.
Endoscopically, consistent with benign fundic gland
polyps and left intact as all were less than 1 cm
- A small amount of food (residue) in the gastric
antrum
- Otherwise, normal stomach on direct and retroflexion
views
- Small amount of retained food/residue in the
examined duodenum up to the third portion
- The examination was otherwise normal.
GI suggested outpatient follow-up with the patient and signed off
General Surgery signed off as patient is currently not in obstruction and recommended to continue low residue diet or pur�ed diet.
Obstruction series repeated due to rising TLC count,nausea and constipation-came back negative ,give miralax for constipation
2. Leukocytosis
Patient has had gradual increasing trend in TLC count up to 15.8 now
Patient's diarrhea resolved on , July 31, 2024
No fever, no source of infection
Patient was on steroids stress dose but now is back on outpatient dose
If leukocytosis continues to progress, consult ID/heme?
TLC count slightly improved today to 13.3
3.Syncope-
-Suspect secondary to dehydration with ongoing GI symptoms and anemia
EKG with sinus rhythm and nonspecific ST-T changes. Not on any steve blocking agents. Last known echo in April 2023 showed EF of 60 to 65% no significant valvular heart disease. Mild MR was noted
4.Fall from syncope
Patient had a CT of the head and cervical spine without any acute pathology.
Abdomen pelvis CT shows- Acute burst fracture of T12 as above. Minimal fracture fragment retropulsion, no associated high-grade narrowing of the canal
Significant pain from the fracture. No sciatica. No lower extremity strength issue
Neurosurgery consult appreciated, TLSO brace ordered when patient is ambulating/weightbearing
Plan is to try ice to the area to break up muscle spasm/decrease inflammation, continue physical therapy with core strengthening and use topical pain medications as the patient does not want to take oral at this time.
5.Anemia--patient's hemoglobin dropped to 7.5 on July 26, 2024 (coffee ground emesis)-and 1 pint of blood was transfused. Patient's hemoglobin has been stable since then. endoscopy negative, Hemoglobin stable around 8-9. No acute concerns on
endoscopy, outpatient GI evaluation and monitoring.
Scleroderma with SIBO--continue with rifaximin. On chronic prednisone--will switch outpatient dose on discharge
[place]--resolved
History of CAD status post prior coronary stents-continue with aspirin.
Essential hypertension-amlodipine 5 mg daily, monitor closely
Hyperlipidemia: Statin
Leukocytosis: Could be related to steroids/1 episode of fever, workup negative, no fever in last 48 hours
PT/OT evaluation done who suggested acute rehab, which was denied and based on physiatry consult by Dr.Van Ko Alcala, appealled for acute [id number] plans to appeal again
Full code
DVT prophylaxis-sequential compression devices
Anticipated Discharge: 24 - 48 hours
Subjective/Interval History
-
Date of Service: August 03, 2024
Patient's condition static, feeling very weak and tired and has chills today
Objective Data
-
Labs:
Laboratory Results
08/02/24 08/03/24
15:54 07:16
WBC Pending
Hgb Pending
Hct Pending
Plt Count Pending
Sodium Cancelled Pending
Potassium Cancelled Pending
Chloride Cancelled Pending
Carbon Dioxide Cancelled Pending
BUN Cancelled Pending
Creatinine Cancelled Pending
Glucose Cancelled Pending
Calcium Cancelled Pending
Total Bilirubin Cancelled
AST Cancelled
ALT Cancelled
Alkaline Phosphatase Cancelled
Vital Signs:
Vital Signs
Temp Pulse Resp BP Pulse Ox
98 F 83 18 135/68 97
08/02/24 23:55 08/02/24 23:55 08/02/24 23:55 08/02/24 23:55 08/02/24 23:55
I&O
08/02/24 08/03/24 08/04/24
06:59 06:59 06:59
Intake Total 800 / 800 720 / 720
Balance 800 / 800 720 / 720
Review of Systems
-
All other systems: Reviewed and negative
Physical Exam
-
General: No Apparent Distress and Appears Chronically Ill
HEENT: Normocephalic and Atraumatic
Respiratory: Clear to Auscultation
Cardiac: Regular Rhythm and S1/S2
GI: Soft, Nontender, Nondistended and Normal Bowel Sounds
Musculoskeletal: No Clubbing, No Cyanosis and No Edema
Neuro: Awake, Oriented and No Motor Deficits
Psych: Calm
[2024-08-03 08:09] LABS: % Basophils 0.5 % (0-2); % Eosinophils 2.2 % (0-6); % Immature Granulocytes 0.5 % (0-0.5); % Lymphocytes 12.8 % (20.5-51.1); % Monocytes 8.6 % (1.7-9.3); % Neutrophils 75.4 % (42.2-75.2); Absolute Basophils 0.1 10^3/uL (0-0.2); Absolute Eosinophils 0.3 10^3/uL (0-0.7); Absolute Immature Granulocytes 0.1 10^3/uL (0-0.05); Absolute Lymphocytes 1.7 10^3/uL (1.2-3.4); Absolute Monocytes 1.1 10^3/uL (0.1-0.6); Hematocrit 33.7 % (39.0-52.0); Hemoglobin 10.5 g/dL (13.0-18.0); Mean Corp Hgb Conc. 31.2 g/dL (33.0-37.0); Mean Corpuscular Hgb 25.4 pg (27.0-31.0); Mean Corpuscular Volume 81.4 fL (80.0-94.0); Mean Platelet Volume 9.3 fL (7.4-10.4); Nucleated Red Blood Cells % 0 % (-); Platelet Count 516 10^3/uL (130-400); Red Blood Cell Count 4.14 10^6/uL (4.70-6.10); Red Cell Dist. Width 17.8 % (11.5-14.5); White Blood Cell Count 13.3 10^3/uL (4.8-10.8)
[2024-08-03 08:18] LABS: Glucose - Point of Care 148 mg/dl (70-99)
[2024-08-03 08:34] LABS: Blood Urea Nitrogen 23 mg/dl (9-20); Calcium 8.8 mg/dl (8.4-10.2); Carbon Dioxide 27 mmol/L (22-30); Chloride 101 mmol/L (98-107); Estimated Creatinine Clearance 47 ml/min; Glucose 139 mg/dl (70-99); Magnesium 1.9 mg/dl (1.6-2.3); Potassium 4.3 mmol/L (3.5-5.1); Sodium 140 mmol/L (135-145); eGFR 53.07
[2024-08-03] MEDS: NOVOLOG FLEXPEN-LOW RESISTANCE SC (10:25)
[2024-08-03] MEDS: LIDOCAINE 4% PATCH 1 PATCH TOPICAL (10:27)
[2024-08-03] MEDS: XIFAXAN 275 MG PO (10:35)
[2024-08-03] MEDS: ZOFRAN 4 MG IV ×2 (10:36→16:37)
[2024-08-03] MEDS: DELTASONE 5 MG PO (10:37)
[2024-08-03] MEDS: LIPITOR 80 MG PO (10:37)
[2024-08-03] MEDS: MESTINON 30 MG PO ×2 (10:37→20:00)
[2024-08-03] MEDS: PROTONIX 40 MG PO (10:37)
[2024-08-03] MEDS: NORVASC 5 MG PO (10:37)
[2024-08-03 12:28] LABS: Glucose - Point of Care 259 mg/dl (70-99)
[2024-08-03] MEDS: NOVOLOG FLEXPEN-LOW RESISTANCE 3 UNITS SC (13:06)
[2024-08-03 14:10] VITALS: PULSE 84; O2SAT 94
[2024-08-03 15:00] VITALS: BP 131/62
[2024-08-03 17:57] LABS: Glucose - Point of Care 161 mg/dl (70-99)
[2024-08-03] MEDS: LOVENOX 30 MG SC (18:38)
[2024-08-03] MEDS: NOVOLOG FLEXPEN-LOW RESISTANCE 1 UNITS SC (18:39)
[2024-08-03] MEDS: DILAUDID 0.5 MG IV (20:00)
[2024-08-03 21:31] LABS: Glucose - Point of Care 148 mg/dl (70-99)
[2024-08-03] MEDS: COZAAR 50 MG PO (21:49)
[2024-08-03] MEDS: ASPIR LOW (ENTERIC COATED) 81 MG PO (21:49)
[2024-08-03 23:00] VITALS: BP 137/71
[2024-08-04 07:35] VITALS: BP 153/72
[2024-08-04 07:35] LABS: Glucose - Point of Care 134 mg/dl (70-99)
--- NOTE | 2024-08-04 07:37 | W.PN.HOSP.TC ---
Addendum entered and electronically signed by Jo-Ann Hawthorne MD 08/04/24 15:16:
I personally performed a history and physical exam of the patient and discussed management with the resident. I reviewed the resident's note and agree with the documented findings and plan of care HPI/CC.
A/P:
# SBO, resolved
apprec gen surgery
tolerating diet
# Syncope, suspect secondary to dehydration with GI symptoms and symptomatic anemia
HGB stable will NOT transfuse further
s/p 1 unit pRBC
Last known echo in April 2023 showed EF of 60 to 65% no significant valvular heart disease. Mild MR was noted
# Fall from syncope
patient had a CT of the head and cervical spine without any acute pathology.
Abdomen/pelvis CT showed acute burst fracture of T12, minimal fracture fragment retropulsion, no associated high-grade narrowing of the canal.
He is in significant pain from the fracture
apprec neurosurgery, TLSO brace ordered when patient is ambulating/weightbearing
cont pain control
PT/OT/PMR recc acute rehab, however this was declined by insurance. PMR appealed and was denied. Family will appeal
# Mild leukocytosis likely 2/2 steroid
ID consulted
pt non-toxic appearing, no fever,
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
s/p stress dose steroid, back to outpt doses
# FLORENCE
SCr 1.4 from baseline 1.2
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
Monitor SCr
# anemia of chronic disease
s/p 1 unit pRBC
apprec GI, s/p EGD 07/29/24 with short segment of Pickard's, retained food in stomach, no other significant findings
# History of CAD status post prior coronary stents-continue with aspirin.
Full code
DVT ppx: Lovenox SQ
Dispo: TBD, [facility] vs [facility]
Original Note:
Today's Communication/Plan
-
ID consult for leukocytosis and chills
Discuss with welfare case worker about disposition of the patient
Assessment / Plan
Assessment / Plan
Impression
Patient is a 74 year old male with scleroderma who presented with small bowel obstruction from dysmotility due to scleroderma, resolved. Patient did have syncope and fall, CT abdomen revealed a T12 burst fracture, neurosurgery consult appreciated,
TLSO brace placed. Patient had black stools with anemia early on, received 1 pint of blood, endoscopy negative for any source of bleed, hemoglobin stable around 9. Patient does have leukocytosis with chills.
Assessment/plan
1.Small bowel obstruction secondary to chronic dysmotility from scleroderma
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
Infectious workup until now has been negative, no leukocytes in stool, norovirus negative, Campylobacter negative, Salmonella Shigella C. difficile testing pending, blood cultures negative
GI consult appreciated -patient's hemoglobin stable, endoscopy done, no bleeder found
Repeat abdominal x-ray showed no significant dilated air-filled loops of bowel
General surgery recommended to advance diet to low residue which the patient has been tolerating okay, but complains of abdominal discomfort with diarrhea following, patient feels better after a bowel movement, diarrhea is not watery but soft
consistency stool that is not black in color or has blood in it
Patient's hemoglobin stable around 9 right now
Endoscopy 07/29/24
Impression: - Normal proximal esophagus.
- Small amount of retained fluid in the mid esophagus,
suctioned and cleared.
- [place]-colored mucosa suspicious for short-segment
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
C0-M1 per [place] criteria. Biopsied.
- Otherwise, normal esophagus without any evidence of
esophagitis, jimy-resendez tears or ulcerations
- Multiple, benign appearing gastric polyps.
Endoscopically, consistent with benign fundic gland
polyps and left intact as all were less than 1 cm
- A small amount of food (residue) in the gastric
antrum
- Otherwise, normal stomach on direct and retroflexion
views
- Small amount of retained food/residue in the
examined duodenum up to the third portion
- The examination was otherwise normal.
GI suggested outpatient follow-up with the patient and signed off
General Surgery signed off as patient is currently not in obstruction and recommended to continue low residue diet or pur�ed diet.
Obstruction series repeated on August 01, 2024 due to rising TLC count,nausea and constipation-came back negative
2. Leukocytosis
Patient has had gradual increasing trend in TLC count which started to trend down again on its own
Patient's diarrhea resolved on , July 31, 2024
No fever, no source of infection
Patient was on steroids stress dose of 25 mg Solu-Cortef, discontinued on August 01, 2024 and is back on outpatient dose of 5 mg daily
Could be related to steroids/1 episode of fever, workup negative, no fever in last 48 hours
Consult ID/heme?
Patient's TLC started to rise on July 31, continued to rise till August 03 and then started to trend down on its own without any interventions-
3.Syncope-
-Suspect secondary to dehydration with ongoing GI symptoms and anemia
EKG with sinus rhythm and nonspecific ST-T changes. Not on any steve blocking agents. Last known echo in April 2023 showed EF of 60 to 65% no significant valvular heart disease. Mild MR was noted
4.Fall from syncope
Patient had a CT of the head and cervical spine without any acute pathology.
Abdomen pelvis CT shows- Acute burst fracture of T12 as above. Minimal fracture fragment retropulsion, no associated high-grade narrowing of the canal
Significant pain from the fracture. No sciatica. No lower extremity strength issue
Neurosurgery consult appreciated, TLSO brace ordered when patient is ambulating/weightbearing
continue physical therapy with core strengthening and use topical pain medications as the patient does not want to take oral at this time.
5.Anemia--patient's hemoglobin dropped to 7.5 on July 26, 2024 (coffee ground emesis)-and 1 pint of blood was transfused. Patient's hemoglobin has been stable since then. endoscopy negative, Hemoglobin stable around 8-9. No acute concerns on
endoscopy, outpatient GI evaluation and monitoring.
Scleroderma with SIBO--continue with rifaximin. On chronic prednisone--will switch outpatient dose on discharge
FLORENCE--resolved
History of CAD status post prior coronary stents-continue with aspirin.
Essential hypertension-amlodipine 5 mg daily, monitor closely
Hyperlipidemia: Statin
PT/OT evaluation done who suggested acute rehab, which was denied and based on physiatry consult by Dr.Van Ko Alcala, appealed for acute [id number] plans to appeal again
Full code
DVT prophylaxis-sequential compression devices
Anticipated Discharge: 24 - 48 hours
Subjective/Interval History
-
Date of Service: August 04, 2024
Patient complains of on and off diarrhea, gives history of having abdominal discomfort after eating food, sometimes feels nauseous and then has diarrhea in 1 to 2 days that helps relieve the symptoms
Objective Data
-
Labs:
Laboratory Results
08/04/24
06:00
WBC Pending
Hgb Pending
Hct Pending
Plt Count Pending
Sodium Pending
Potassium Pending
Chloride Pending
Carbon Dioxide Pending
BUN Pending
Creatinine Pending
Glucose Pending
Calcium Pending
Vital Signs:
Vital Signs
Temp Pulse Resp BP Pulse Ox
97.9 F 73 16 137/71 95
08/03/24 23:00 08/03/24 23:00 08/03/24 23:00 08/03/24 23:00 08/03/24 23:00
I&O
08/03/24 08/04/24 08/05/24
06:59 06:59 06:59
Intake Total 720 / 720 1440 / 1440
Balance 720 / 720 1440 / 1440
Review of Systems
-
All other systems: Reviewed and negative
Physical Exam
-
General: No Apparent Distress and Appears Chronically Ill (Pale, weak and tired)
HEENT: Normocephalic and Atraumatic
Respiratory: Clear to Auscultation
Cardiac: Regular Rhythm and S1/S2
GI: Soft, Nontender, Nondistended and Normal Bowel Sounds
Musculoskeletal: No Clubbing, No Cyanosis and No Edema
Skin: Warm and Other (Skin changes consistent with scleroderma)
Neuro: Nonfocal/Grossly Intact
Psych: Anxious
[2024-08-04 08:43] LABS: % Basophils 0.8 % (0-2); % Immature Granulocytes 0.6 % (0-0.5); % Lymphocytes 14.2 % (20.5-51.1); % Neutrophils 73.4 % (42.2-75.2); Absolute Basophils 0.1 10^3/uL (0-0.2); Absolute Eosinophils 0.2 10^3/uL (0-0.7); Absolute Immature Granulocytes 0.1 10^3/uL (0-0.05); Absolute Lymphocytes 1.6 10^3/uL (1.2-3.4); Absolute Neutrophils 8.2 10^3/uL (1.4-6.5); Hematocrit 35.4 % (39.0-52.0); Hemoglobin 10.8 g/dL (13.0-18.0); Mean Corp Hgb Conc. 30.5 g/dL (33.0-37.0); Mean Corpuscular Hgb 24.9 pg (27.0-31.0); Mean Corpuscular Volume 81.6 fL (80.0-94.0); Mean Platelet Volume 9.1 fL (7.4-10.4); Nucleated Red Blood Cells % 0 % (-); Platelet Count 530 10^3/uL (130-400); Red Blood Cell Count 4.34 10^6/uL (4.70-6.10); Red Cell Dist. Width 17.5 % (11.5-14.5); White Blood Cell Count 11.2 10^3/uL (4.8-10.8)
[2024-08-04] MEDS: PROTONIX 40 MG PO (08:47)
[2024-08-04] MEDS: LIPITOR 80 MG PO (08:47)
[2024-08-04] MEDS: NOVOLOG FLEXPEN-LOW RESISTANCE SC (08:47)
[2024-08-04] MEDS: XIFAXAN 275 MG PO (08:47)
[2024-08-04] MEDS: NORVASC 5 MG PO (08:48)
[2024-08-04] MEDS: MESTINON 30 MG PO ×2 (08:49→19:54)
[2024-08-04] MEDS: LIDOCAINE 4% PATCH 1 PATCH TOPICAL (08:50)
[2024-08-04] MEDS: DELTASONE 5 MG PO (08:50)
[2024-08-04 09:16] LABS: Blood Urea Nitrogen 25 mg/dl (9-20); Calcium 9.1 mg/dl (8.4-10.2); Carbon Dioxide 24 mmol/L (22-30); Chloride 103 mmol/L (98-107); Estimated Creatinine Clearance 47 ml/min; Glucose 147 mg/dl (70-99); Potassium 4.6 mmol/L (3.5-5.1); Sodium 140 mmol/L (135-145); eGFR 53.07
[2024-08-04 09:22] LABS: Urine Albumin Trace (Neg - Trace); Urine Bilirubin Negative (Negative); Urine Character Clear (Clear); Urine Color Yellow; Urine Glucose Negative (Negative); Urine Ketone Negative (Negative); Urine Leukocyte Negative (Negative); Urine Nitrite Negative (Negative); Urine Occult Blood Negative (Negative); Urine Urobilinogen 3+ (Neg - 1+)
[2024-08-04 11:46] LABS: Glucose - Point of Care 196 mg/dl (70-99)
[2024-08-04] MEDS: DILAUDID 0.5 MG IV ×3 (11:58→21:46)
[2024-08-04] MEDS: NOVOLOG FLEXPEN-LOW RESISTANCE 1 UNITS SC ×2 (11:59→18:28)
--- NOTE | 2024-08-04 12:34 | CM ---
Addendum entered by Klaudia Gloria 08/04/24 16:08:
CM received call from daughter in law, spoke with insurance (call reference number [id number]), per HERLINDA, insurance in stating that family cannot conduct family appeal at peer to peer has not been completed. Peer to peer has been previously been completed
and denied. CM will call insurance to provide denial for peer to peer, auth #[id number].
Original Note:
CM reviewed chart, spoke with patients son, Dedrick. Per Dedrick, family is moving forward with the family appeal. Dedrick reports back up plan will be for patient to return home with home therapy services, interested in list of private caregivers and
contact information for [facility]. Dedrick reports they are completing the family appeal today, update to Nas[facility] schneider [employer]. CM will continue to follow for all discharge planning needs.
Plan; family completing family appeal through insurance, awaiting decision from insurance.
[2024-08-04 13:31] VITALS: BP 137/67; PULSE 80; O2SAT 95
[2024-08-04 15:36] VITALS: BP 117/57
--- NOTE | 2024-08-04 16:09 | CON.ID ---
Consultation
-
Date/Time Consultation Requested: 08/04/24 8:34
Date/Time Consultation Performed: 08/04/24 16:09
Requesting Provider: Dr Forrest
Performing Provider: Dr Garcia
Reason for Consultation: leukocytosis, chills
Chief Complaint / Past History
Chief Complaint
Acute nausea vomiting diarrhea and syncope
History of Present Illness
Mr Wing is a 74 year old male with Scleroderma (pred 5 mg PO qday), pulmonary fibrosis, pseudogout and SIBO on rifaximin who presented here 07/24 for about 5 days of persistent nausea, vomiting and poor oral intake progressing to syncope which
prompted him to come to the ER. He was found to have a SBO and a T12 burst fracture. Neurosurgery recommended bracing. He had an isoalted fever 07/25 but has been afebrile for the last 10 days. He was initially kept NPO and later restarted on
low residual diet. When black tarry stools developed he was taken for EGD 07/29 which was suggestive of Barretts esophagus and he was recommended to avoid NSIADs. On arrival wbc initially 19, resolved HD2 to 10, then 1/2 increased to 11.5 and
peaked / at 15.8 now 11.2, hgb 10.8, plt have been increasing over the last 3 days now 530, L shift was notable / and /5 but resolved today, Cr baseline 1.1, on arrival 1.5 peaked at 1.8 today 1.4, a1c 6.3. LFTs last assessed 07/24 at that
time t bili 0.8, ast 27, alt 27, alk phos 82, 08/04 UA 3+urobilinogen but negative pyuria, 07/25 covid ag negative, 08/01 CXR: '1. Mild air distention of small bowel loops in the right side of the midabdomen. 2. No radiographic evidence for
pneumoperitoneum or colonic distention.
3. Previous cholecystectomy. 4. Chronic pancreatitis. 5. Mild inflammatory interstitial pneumonitis and scarring in the lower lobes of both lungs.' 12/26 CT a/p without contrast: SBO, T12 burst fracture, 08/03 single set of blood cultures done -
no growth to date, 07/28 stool culture/c diff/norovirus - negative, 07/25 blood cultures x2 finalized negative. Main complaint to me at this time is right kne pain 'its worse than my back' right knee, not swollen, erythematous or warm; exquisitely
tender to light touch - abrupt onset. Recent steroid taper. ID is consulted to comment on leukocytosis and subjective chills.
Past History
Additional Past Medical History:
Scleroderma, HTN, HLD, small bowel obstruction, pulmonary fibrosis, ASCVD, type 2 diabetes, GERD, chronic lumbar spine pain
Additional Past Surgical History:
Cardiac stents x 6, cholecystectomy, dural steroid injections 2023 with success
Allergy History:
No Known Allergies Allergy (Verified 07/24/24 07:44)
Medications Reviewed: Yes
Social History
Tobacco: Non-Smoker
Alcohol: None
Drug: None
Family History
Family History: Not Pertinent
Review of Systems
Review of Systems
General: Negative Fever or Chills
All systems: All other systems were reviewed and were negative
Vital Signs
Temp Pulse Resp BP Pulse Ox
98.0 F 79 18 117/57 96
08/04/24 15:36 08/04/24 15:36 08/04/24 15:36 08/04/24 15:36 08/04/24 15:36
Physical Exam
Physical Exam
Constitutional: No Acute Distress
Cardiovascular: Regular Rate and S1/S2; Negative Murmur or Rub
Pulmonary: Clear and Symmetric; Negative Wheezes, Rales or Rhonchi
Gastrointestinal: Soft, Non Tender, Non Distended and Normal Bowel Sounds
Musculoskeletal: Other (right knee, not swollen, erythematous or warm; exquisitely tender to light touch - abrupt onset)
Skin: Warm and Dry; Negative Rash or Jaundice
Lab / Diagnostic Study Results
08/04/24 08:10
08/04/24 08:10
Abs Immat Gran (auto) 0.1 10^3/uL (0-0.05) H 08/04/24 08:10
Absolute Neuts (auto) 8.2 10^3/uL (1.4-6.5) H 08/04/24 08:10
Absolute Lymphs (auto) 1.6 10^3/uL (1.2-3.4) 08/04/24 08:10
Absolute Monos (auto) 1.0 10^3/uL (0.1-0.6) H 08/04/24 08:10
Absolute Basos (auto) 0.1 10^3/uL (0-0.2) 08/04/24 08:10
Immature Gran % 0.6 % (0-0.5) H 08/04/24 08:10
Neutrophils % 73.4 % (42.2-75.2) 08/04/24 08:10
Lymphocytes % 14.2 % (20.5-51.1) L 08/04/24 08:10
Monocytes % 9.0 % (1.7-9.3) 08/04/24 08:10
Eosinophils % 2.0 % (0-6) 08/04/24 08:10
Basophils % 0.8 % (0-2) 08/04/24 08:10
Microbiology Results
Micro:
08/03/24 14:43 Blood Culture - Preliminary
Blood/Venous No Growth in 24 hours- Final report to follow
07/28/24 06:33 Salmonella/Shigella Culture - Final
Feces/Stool No Salmonella, Shigella, Aeromonas or Plesiomonas species
isolated.
Campylobacter Culture - Final
No Campylobacter species isolated.
Shiga Toxin Test - Final
No E. coli Shiga Toxin 1 or 2 detected.
07/25/24 22:07 Blood Culture - Final
Blood/Venous No Growth - Final Report
07/25/24 21:24 Blood Culture - Final
Blood/Venous No Growth - Final Report
07/28/24 06:33 Stool Leukocytes - Final
Feces/Stool
07/28/24 06:33 - Final
Feces/Stool Negative for Norovirus GI and GII.
07/25/24 21:17 Influenza Types A & B (PERLA) - Final
Nasal Swab Negative for Influenza A & B, NAAT
Negative results must be combined with clinical observations
and patient history.
Nucleic Acid Amplification test (NAAT)performed on the
[employer] NOW platform.
Assessment / Plan
Reactive Leukocytosis - nearly resolved
Scleroderma
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
- leukocytosis likely due to recent stress dose steroids, hydrocortisone was last administered 08/01, leukocytosis peaked the next day 08/02 and now declining
- 07/25 blood cultures finalized negative, 08/03 single set of blood cultures no growth thus far
- would advise against blood cultures for leukocytosis, would not send further sets
- L shift resolved, patient afebrile for the last 10 days
- ua negative
- 08/01 CXR scarring of the bilateral lower lobes
Suspected Pseudogout Flare
History of Pseudogout
- with abrupt onset of exquisite right knee pain even with gentle touch, in the setting of recent decrease in steroid dose, suspect pseudogout flare, might also explain thrombocytosis - communicated suspicion with hospitalist service and defer to
them for possible workup/treatment
No indication for further workup at this time from ID perspective, do not recommend antibiotics; ID service will no longer actively follow this patient please recall for further questions
[2024-08-04 16:48] LABS: Glucose - Point of Care 163 mg/dl (70-99)
[2024-08-04] MEDS: COLCHICINE 1.2 MG PO (18:29)
[2024-08-04] MEDS: LOVENOX 30 MG SC (18:29)
[2024-08-04] MEDS: COLCHICINE 0.6 MG PO (19:54)
[2024-08-04 21:30] LABS: Glucose - Point of Care 165 mg/dl (70-99)
[2024-08-04] MEDS: ASPIR LOW (ENTERIC COATED) 81 MG PO (22:59)
[2024-08-04] MEDS: COZAAR 50 MG PO (22:59)
[2024-08-04 23:00] VITALS: BP 120/69
[2024-08-05] MEDS: DILAUDID 0.5 MG IV ×3 (04:25→21:45)
[2024-08-05 07:22] VITALS: BP 152/78
[2024-08-05 08:17] LABS: Glucose - Point of Care 160 mg/dl (70-99)
[2024-08-05] MEDS: PROTONIX 40 MG PO (08:18)
[2024-08-05] MEDS: MESTINON 30 MG PO ×2 (08:19→19:13)
[2024-08-05] MEDS: LIPITOR 80 MG PO (08:19)
[2024-08-05] MEDS: XIFAXAN 275 MG PO (08:19)
[2024-08-05] MEDS: DELTASONE 5 MG PO (08:20)
[2024-08-05] MEDS: LIDOCAINE 4% PATCH 1 PATCH TOPICAL (08:20)
[2024-08-05] MEDS: NORVASC 5 MG PO (08:20)
[2024-08-05] MEDS: NOVOLOG FLEXPEN-LOW RESISTANCE 1 UNITS SC ×3 (08:21→18:14)
[2024-08-05 08:22] VITALS: BP 152/78
[2024-08-05 08:59] LABS: % Basophils 0.7 % (0-2); % Immature Granulocytes 0.7 % (0-0.5); % Lymphocytes 10.6 % (20.5-51.1); Absolute Basophils 0.1 10^3/uL (0-0.2); Absolute Eosinophils 0.2 10^3/uL (0-0.7); Absolute Immature Granulocytes 0.1 10^3/uL (0-0.05); Absolute Lymphocytes 1.3 10^3/uL (1.2-3.4); Absolute Monocytes 1.1 10^3/uL (0.1-0.6); Absolute Neutrophils 9.4 10^3/uL (1.4-6.5); Hematocrit 33.4 % (39.0-52.0); Hemoglobin 10.2 g/dL (13.0-18.0); Mean Corp Hgb Conc. 30.5 g/dL (33.0-37.0); Mean Corpuscular Hgb 24.6 pg (27.0-31.0); Mean Corpuscular Volume 80.5 fL (80.0-94.0); Nucleated Red Blood Cells % 0 % (-); Platelet Count 489 10^3/uL (130-400); Red Blood Cell Count 4.15 10^6/uL (4.70-6.10); Red Cell Dist. Width 17.3 % (11.5-14.5); White Blood Cell Count 12.2 10^3/uL (4.8-10.8)
[2024-08-05 09:36] LABS: Blood Urea Nitrogen 25 mg/dl (9-20); Carbon Dioxide 25 mmol/L (22-30); Chloride 102 mmol/L (98-107); Estimated Creatinine Clearance 47 ml/min; Glucose 153 mg/dl (70-99); Potassium 4.5 mmol/L (3.5-5.1); Sodium 137 mmol/L (135-145); eGFR 53.07
[2024-08-05] MEDS: ZOFRAN 4 MG IV (12:10)
[2024-08-05 12:23] LABS: Glucose - Point of Care 199 mg/dl (70-99)
--- NOTE | 2024-08-05 12:35 | W.PN.HOSP.TC ---
Addendum entered and electronically signed by Jo-Ann Hawthorne MD 08/05/24 13:47:
I personally performed a history and physical exam of the patient and discussed management with the resident. I reviewed the resident's note and agree with the documented findings and plan of care HPI/CC.
A/P:
# SBO, resolved
apprec gen surgery
tolerating diet
# Syncope, suspect secondary to dehydration with GI symptoms and symptomatic anemia
HGB stable will NOT transfuse further
s/p 1 unit pRBC
Last known echo in April 2023 showed EF of 60 to 65% no significant valvular heart disease. Mild MR was noted
# Fall from syncope
CT head and cervical spine without any acute pathology.
Abdomen/pelvis CT showed acute burst fracture of T12, minimal fracture fragment retropulsion, no associated high-grade narrowing of the canal.
He is in significant pain from the fracture
apprec neurosurgery, TLSO brace ordered when patient is ambulating/weightbearing
cont pain control
PT/OT/PMR recc acute rehab, however this was declined by insurance. PMR appealed and was denied. Family appealing
# Mild leukocytosis likely 2/2 steroid
ID consulted
pt non-toxic appearing, no fever,
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
s/p stress dose steroid, back to outpt doses
# FLORENCE
SCr 1.4 from baseline 1.2
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
Monitor SCr
# anemia of chronic disease
s/p 1 unit pRBC
apprec GI, s/p EGD 07/29/24 with short segment of Pickard's, retained food in stomach, no other significant findings
# History of CAD status post prior coronary stents-continue with aspirin.
# R knee pain 2/2 ?pseudogout
Pain resolved following colchicine
Full code
DVT ppx: Lovenox SQ
Dispo: TBD, [facility]
Original Note:
Today's Communication/Plan
-
Patient appealed for acute inpatient rehab, if declined, patient to go home on physical therapy
Assessment / Plan
Assessment / Plan
Impression
Patient is a 74 year old male with scleroderma who presented with small bowel obstruction from dysmotility due to scleroderma, resolved. Patient did have syncope and fall, CT abdomen revealed a T12 burst fracture, neurosurgery consult appreciated,
TLSO brace placed. Patient had black stools with anemia early on, received 1 pint of blood, endoscopy negative for any source of bleed, hemoglobin stable around 9.
Assessment/plan
1.Small bowel obstruction secondary to chronic dysmotility from scleroderma
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
Infectious workup until now has been negative, no leukocytes in stool, norovirus negative, Campylobacter negative, Salmonella Shigella C. difficile testing pending, blood cultures negative
GI consult appreciated -patient's hemoglobin stable, endoscopy done, no bleeder found
Repeat abdominal x-ray showed no significant dilated air-filled loops of bowel
General surgery recommended to advance diet to low residue which the patient has been tolerating okay, but complains of abdominal discomfort with diarrhea following, patient feels better after a bowel movement, diarrhea is not watery but soft
consistency stool that is not black in color or has blood in it
Patient's hemoglobin stable around 9 right now
Endoscopy 07/29/24
Impression: - Normal proximal esophagus.
- Small amount of retained fluid in the mid esophagus,
suctioned and cleared.
- [place]-colored mucosa suspicious for short-segment
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
C0-M1 per [place] criteria. Biopsied.
- Otherwise, normal esophagus without any evidence of
esophagitis, jimy-resendez tears or ulcerations
- Multiple, benign appearing gastric polyps.
Endoscopically, consistent with benign fundic gland
polyps and left intact as all were less than 1 cm
- A small amount of food (residue) in the gastric
antrum
- Otherwise, normal stomach on direct and retroflexion
views
- Small amount of retained food/residue in the
examined duodenum up to the third portion
- The examination was otherwise normal.
GI suggested outpatient follow-up with the patient and signed off
General Surgery signed off as patient is currently not in obstruction and recommended to continue low residue diet or pur�ed diet.
Obstruction series repeated on August 01, 2024 due to rising TLC count,nausea and constipation-came back negative
2. Leukocytosis
Patient has had gradual increasing trend in TLC count which started to trend down again on its own
Patient's diarrhea resolved on , July 31, 2024
No fever, no source of infection
Patient was on steroids stress dose of 25 mg Solu-Cortef, discontinued on August 01, 2024 and is back on outpatient dose of 5 mg daily
Could be related to steroids/1 episode of fever, workup negative, no fever in last 48 hours
ID consult appreciated-suspected pseudogout flare in setting of sudden onset of exquisite right knee pain in setting of steroid use that could also explain the thrombocytosis
Based on ID service patient, patient given colchicine 1.2 mg stat and then 0.6 mg after 1 hour. Patient reports significant improvement in pain
Patient's TLC started to rise on July 31, continued to rise till August 03 and then started to trend down on its own without any interventions-
3.Syncope-
-Suspect secondary to dehydration with ongoing GI symptoms and anemia
EKG with sinus rhythm and nonspecific ST-T changes. Not on any steve blocking agents. Last known echo in April 2023 showed EF of 60 to 65% no significant valvular heart disease. Mild MR was noted
4.Fall from syncope
Patient had a CT of the head and cervical spine without any acute pathology.
Abdomen pelvis CT shows- Acute burst fracture of T12 as above. Minimal fracture fragment retropulsion, no associated high-grade narrowing of the canal
Significant pain from the fracture. No sciatica. No lower extremity strength issue
Neurosurgery consult appreciated, TLSO brace ordered when patient is ambulating/weightbearing
continue physical therapy with core strengthening and use topical pain medications as the patient does not want to take oral at this time.
5.Anemia--patient's hemoglobin dropped to 7.5 on July 26, 2024 (coffee ground emesis)-and 1 pint of blood was transfused. Patient's hemoglobin has been stable since then. endoscopy negative, Hemoglobin stable around 8-9. No acute concerns on
endoscopy, outpatient GI evaluation and monitoring.
Scleroderma with SIBO--continue with rifaximin. On chronic prednisone--resumed home doses of prednisone 5 mg daily
FLORENCE--resolved
History of CAD status post prior coronary stents-continue with aspirin.
Essential hypertension-amlodipine 5 mg daily, monitor closely
Hyperlipidemia: Statin
PT/OT evaluation done who suggested acute rehab, which was denied and based on physiatry consult by Dr.Van Ko Alcala, appealed for acute [id number]-[id number] plans to appeal again
Full code
DVT prophylaxis-sequential compression devices
Anticipated Discharge: 24 - 48 hours
Subjective/Interval History
-
Date of Service: August 05, 2024
Patient condition stable, his TLC count is trending down, FLORENCE improving, no further diarrhea episodes. Patient feels weak due to general deconditioning
Objective Data
-
Labs:
Laboratory Results
08/05/24
08:16
WBC 12.2 H
Hgb 10.2 L
Hct 33.4 L
Plt Count 489 H
Sodium 137
Potassium 4.5
Chloride 102
Carbon Dioxide 25
BUN 25 H
Creatinine 1.4 H
Glucose 153 H
Calcium 9.0
Vital Signs:
Vital Signs
Temp Pulse Resp BP Pulse Ox
97.9 F 78 18 152/78 99
08/05/24 07:22 08/05/24 07:22 08/05/24 07:22 08/05/24 07:22 08/05/24 07:22
I&O
08/04/24 08/05/24 08/06/24
06:59 06:59 06:59
Intake Total 1440 / 1440 420 / 420
Output Total 300 / 300
Balance 1440 / 1440 120 / 120
Review of Systems
-
All other systems: Reviewed and negative
Physical Exam
-
General: Appears Chronically Ill (Weak and pale)
HEENT: Normocephalic and Atraumatic
Respiratory: Clear to Auscultation
Cardiac: Regular Rhythm and S1/S2
GI: Soft, Nontender, Nondistended and Normal Bowel Sounds
Musculoskeletal: No Clubbing, No Cyanosis and No Edema
Neuro: Awake, Oriented and No Motor Deficits
Psych: Calm
--- NOTE | 2024-08-05 14:11 | CM ---
CM reviewed chart, spoke with patients insurance, relayed member/family are trying to complete member appeal and are being told peer to peer was not completed- insurance confirmed peer to peer was completed and denial was upheld, CM requesting
denial letter faxed to CM office. CM placed call to patients daughter in law, Beatrice, was able to submit the member appeal- confirmation number [id number], Beatrice reports email will be sent to family once appeal
received. Update to [facility] on family appeal status. CM will continue to follow for all discharge planning needs.
Plan; family appeal submitted for acute rehab
[2024-08-05 15:00] VITALS: BP 146/74
[2024-08-05] MEDS: LOVENOX 30 MG SC (17:08)
[2024-08-05 17:18] LABS: Glucose - Point of Care 177 mg/dl (70-99)
[2024-08-05 21:26] LABS: Glucose - Point of Care 198 mg/dl (70-99)
[2024-08-05 21:40] VITALS: BP 144/68
[2024-08-05] MEDS: ASPIR LOW (ENTERIC COATED) 81 MG PO (21:41)
[2024-08-05] MEDS: COZAAR 50 MG PO (21:41)
[2024-08-05 23:10] VITALS: BP 115/68
[2024-08-06] MEDS: DILAUDID 0.5 MG IV ×3 (03:26→23:42)
[2024-08-06 07:00] VITALS: BP 119/55
[2024-08-06 07:06] LABS: Glucose - Point of Care 158 mg/dl (70-99)
--- NOTE | 2024-08-06 07:33 | W.PN.HOSP.TC ---
Addendum entered and electronically signed by Jo-Ann Hawthorne MD 08/06/24 14:41:
A/P:
# SBO, resolved
tolerating diet
# Syncope, suspect secondary to dehydration with GI symptoms and symptomatic anemia
s/p 1 unit pRBC
Hgb stable
# Fall from syncope
Last known echo in April 2023 showed EF of 60 to 65% no significant valvular heart disease. Mild MR was noted
CT head and cervical spine without any acute pathology.
Abdomen/pelvis CT showed acute burst fracture of T12, minimal fracture fragment retropulsion, no associated high-grade narrowing of the canal.
He is in significant pain from the fracture
apprec neurosurgery, TLSO brace ordered when patient is ambulating/weightbearing
cont pain control
PT/OT/PMR recc acute rehab, however this was declined by insurance. PMR appealed and was denied. Family appealing
# Mild leukocytosis likely 2/2 steroid
ID consulted
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
s/p stress dose steroid, back to outpt doses
# FLORENCE
Serum creatinine now 1.6 from baseline 1.2
Hold prior to admission losartan
Small bolus NSS 250 cc today
Monitor serum creatinine
# anemia of chronic disease
s/p 1 unit pRBC
apprec GI, s/p EGD 07/29/24 with short segment of Pickard's, retained food in stomach, no other significant findings
# History of CAD status post prior coronary stents-continue with aspirin.
# R knee pain 2/2 ?pseudogout
Pain resolved following colchicine
Full code
DVT ppx: Lovenox SQ
Dispo: TBD, [facility]
Original Note:
Today's Communication/Plan
-
Discuss with pillowcase turner the discharge situation
Give fluid
Assessment / Plan
Assessment / Plan
Impression
Patient is a 74 year old male with scleroderma who presented with small bowel obstruction from dysmotility due to scleroderma, resolved. Patient did have syncope and fall, CT abdomen revealed a T12 burst fracture, neurosurgery consult appreciated,
TLSO brace placed. Patient had black stools with anemia early on, received 1 pint of blood, endoscopy negative for any source of bleed, hemoglobin stable around 9.
Assessment/plan
1.Small bowel obstruction secondary to chronic dysmotility from scleroderma
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
Infectious workup until now has been negative, no leukocytes in stool, norovirus negative, Campylobacter negative, Salmonella Shigella C. difficile testing pending, blood cultures negative
GI consult appreciated -patient's hemoglobin stable, endoscopy done, no bleeder found
Repeat abdominal x-ray showed no significant dilated air-filled loops of bowel
General surgery recommended to advance diet to low residue which the patient has been tolerating okay, but complains of abdominal discomfort with diarrhea following, patient feels better after a bowel movement, diarrhea is not watery but soft
consistency stool that is not black in color or has blood in it
Patient's hemoglobin stable around 9 right now
Endoscopy 07/29/24
Impression: - Normal proximal esophagus.
- Small amount of retained fluid in the mid esophagus,
suctioned and cleared.
- [place]-colored mucosa suspicious for short-segment
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
C0-M1 per [place] criteria. Biopsied.
- Otherwise, normal esophagus without any evidence of
esophagitis, jimy-resendez tears or ulcerations
- Multiple, benign appearing gastric polyps.
Endoscopically, consistent with benign fundic gland
polyps and left intact as all were less than 1 cm
- A small amount of food (residue) in the gastric
antrum
- Otherwise, normal stomach on direct and retroflexion
views
- Small amount of retained food/residue in the
examined duodenum up to the third portion
- The examination was otherwise normal.
GI suggested outpatient follow-up with the patient and signed off
General Surgery signed off as patient is currently not in obstruction and recommended to continue low residue diet or pur�ed diet.
Obstruction series repeated on August 01, 2024 due to rising TLC count,nausea and constipation-came back negative
2. Leukocytosis
Patient has had gradual increasing trend in TLC count which started to trend down again on its own
Patient's diarrhea resolved on , July 31, 2024
No fever, no source of infection
Patient was on steroids stress dose of 25 mg Solu-Cortef, discontinued on August 01, 2024 and is back on outpatient dose of 5 mg daily
Could be related to steroids/1 episode of fever, workup negative, no fever in last 48 hours
ID consult appreciated-suspected pseudogout flare in setting of sudden onset of exquisite right knee pain in setting of steroid use that could also explain the thrombocytosis
Patient given colchicine 1.2 mg stat and then 0.6 mg after 1 hour. Patient reports significant improvement in pain
Patient's TLC started to rise on July 31, continued to rise till August 03 and then started to trend down on its own without any interventions-could be due to steroid effect
3.Syncope-
-Suspect secondary to dehydration with ongoing GI symptoms and anemia
EKG with sinus rhythm and nonspecific ST-T changes. Not on any steve blocking agents. Last known echo in April 2023 showed EF of 60 to 65% no significant valvular heart disease. Mild MR was noted
4.Fall from syncope
Patient had a CT of the head and cervical spine without any acute pathology.
Abdomen pelvis CT shows- Acute burst fracture of T12 as above. Minimal fracture fragment retropulsion, no associated high-grade narrowing of the canal
Significant pain from the fracture. No sciatica. No lower extremity strength issue
Neurosurgery consult appreciated, TLSO brace ordered when patient is ambulating/weightbearing
continue physical therapy with core strengthening and use topical pain medications as the patient does not want to take oral at this time.
5.Anemia--patient's hemoglobin dropped to 7.5 on July 26, 2024 (coffee ground emesis)-and 1 pint of blood was transfused. Patient's hemoglobin has been stable since then. endoscopy negative, Hemoglobin stable around 8-9. No acute concerns on
endoscopy, outpatient GI evaluation and monitoring.
Scleroderma with SIBO--continue with rifaximin. On chronic prednisone--resumed home doses of prednisone 5 mg daily
FLORENCE--resolved
History of CAD status post prior coronary stents-continue with aspirin.
Essential hypertension-amlodipine 5 mg daily, monitor closely
Hyperlipidemia: Statin
PT/OT evaluation done who suggested acute rehab, which was denied and based on physiatry consult by Dr.Van Ko Alcala, appealed for acute [id number] plans to appeal again
If not acute rehab,will go home on physical therapy
Full code
DVT prophylaxis-sequential compression devices
Anticipated Discharge: Within 24 hours
Subjective/Interval History
-
Date of Service: August 06, 2024
Patient anxious about his appeal decision,otherwise feeling okay
Objective Data
-
Labs:
Laboratory Results
08/06/24
07:18
WBC Pending
Hgb Pending
Hct Pending
Plt Count Pending
Sodium Pending
Potassium Pending
Chloride Pending
Carbon Dioxide Pending
BUN Pending
Creatinine Pending
Glucose Pending
Calcium Pending
Vital Signs:
Vital Signs
Temp Pulse Resp BP Pulse Ox
98.4 F 89 18 115/68 95
08/05/24 23:10 08/05/24 23:10 08/05/24 23:10 08/05/24 23:10 08/05/24 23:10
I&O
08/05/24 08/06/24 08/07/24
06:59 06:59 06:59
Intake Total 420 / 420 720 / 720
Output Total 300 / 300
Balance 120 / 120 720 / 720
Review of Systems
-
All other systems: Reviewed and negative
Physical Exam
-
General: Appears Chronically Ill (weak,anxious and tired)
HEENT: Normocephalic, Atraumatic and Moist Mucous Membranes
Respiratory: Clear to Auscultation
Cardiac: Regular Rhythm and S1/S2
GI: Soft, Nontender and Normal Bowel Sounds
Musculoskeletal: No Clubbing, No Cyanosis and No Edema
Neuro: Awake, Oriented and No Motor Deficits
Psych: Anxious
[2024-08-06] MEDS: MESTINON 30 MG PO ×2 (08:09→19:50)
[2024-08-06] MEDS: NORVASC 5 MG PO (08:10)
[2024-08-06] MEDS: PROTONIX 40 MG PO (08:10)
[2024-08-06] MEDS: XIFAXAN 275 MG PO (08:10)
[2024-08-06] MEDS: LIDOCAINE 4% PATCH 1 PATCH TOPICAL (08:11)
[2024-08-06] MEDS: LIPITOR 80 MG PO (08:12)
[2024-08-06 08:13] LABS: % Basophils 0.6 % (0-2); % Immature Granulocytes 0.7 % (0-0.5); % Lymphocytes 15.5 % (20.5-51.1); % Monocytes 9.6 % (1.7-9.3); % Neutrophils 71.6 % (42.2-75.2); Absolute Basophils 0.1 10^3/uL (0-0.2); Absolute Eosinophils 0.2 10^3/uL (0-0.7); Absolute Immature Granulocytes 0.1 10^3/uL (0-0.05); Absolute Lymphocytes 1.6 10^3/uL (1.2-3.4); Absolute Neutrophils 7.4 10^3/uL (1.4-6.5); Hematocrit 32.9 % (39.0-52.0); Hemoglobin 10.1 g/dL (13.0-18.0); Mean Corp Hgb Conc. 30.7 g/dL (33.0-37.0); Mean Corpuscular Hgb 25.2 pg (27.0-31.0); Mean Platelet Volume 9.3 fL (7.4-10.4); Nucleated Red Blood Cells % 0 % (-); Platelet Count 561 10^3/uL (130-400); Red Blood Cell Count 4.01 10^6/uL (4.70-6.10); Red Cell Dist. Width 17.1 % (11.5-14.5); White Blood Cell Count 10.4 10^3/uL (4.8-10.8)
[2024-08-06] MEDS: DELTASONE 5 MG PO (08:13)
[2024-08-06 08:41] LABS: Blood Urea Nitrogen 26 mg/dl (9-20); Calcium 8.8 mg/dl (8.4-10.2); Carbon Dioxide 27 mmol/L (22-30); Chloride 102 mmol/L (98-107); Estimated Creatinine Clearance 41 ml/min; Glucose 141 mg/dl (70-99); Magnesium 1.9 mg/dl (1.6-2.3); Potassium 4.3 mmol/L (3.5-5.1); Sodium 139 mmol/L (135-145); eGFR 45.21
[2024-08-06] MEDS: NOVOLOG FLEXPEN-LOW RESISTANCE 1 UNITS SC ×2 (09:00→16:40)
--- NOTE | 2024-08-06 11:10 | CM ---
CM reviewed chart, patient seen bedside, patient would like to wait for decision regarding member appeal, aware that will most likely not be approved, would like to then return home with [facility]. CM will continue to follow for all discharge planning
needs.
Plan; awaiting decision from insurance regarding member appeal, if denied, home [facility].
[2024-08-06 11:54] LABS: Glucose - Point of Care 226 mg/dl (70-99)
[2024-08-06] MEDS: NOVOLOG FLEXPEN-LOW RESISTANCE 2 UNITS SC (12:43)
[2024-08-06] MEDS: NSS 250 IV (13:56)
[2024-08-06 14:30] VITALS: BP 128/73; PULSE 110
--- NOTE | 2024-08-06 14:53 | VNURNOTE ---
Chart reviewed. Liaison aware that [facility] is second choice if [employer] appeal denied. Liaison reached out to son and patient on speakerphone. Discussed [facility] nurse/therapy, visits, schedule and homebound status. Son and patient are agreeable and
understand that visits at home will be 2-3 x per week to assess and teach medical management. Bentley Dedrick emailed list of Homemakers/companions and [facility] contact information. Sonand patient are aware that [facility] will contact them for start of care in 1-2
days after discharge from . [facility] referral completed in [facility].
[2024-08-06 15:05] VITALS: BP 112/62
[2024-08-06 16:39] LABS: Glucose - Point of Care 177 mg/dl (70-99)
[2024-08-06] MEDS: LOVENOX 30 MG SC (16:40)
--- NOTE | 2024-08-06 17:20 | PTCARENOTE ---
08/06- Patient states new abdominal pain throughout abdomen 03/08. He states this occurred shortly after eating his tomato soup, and this pain has occurred the last time he ate tomato soup. He denies nausea/vomiting. Last BM was 2 days ago, but he
still has flatulence. Abd soft but tender to palpation, mildly distended; +BSX4. Skin=warm/pink/dry. Notified Physician. Administered PRN pain medication as ordered. Will continue to monitor.
[2024-08-06] MEDS: ZOFRAN 4 MG IV (19:55)
[2024-08-06 21:33] LABS: Glucose - Point of Care 156 mg/dl (70-99)
[2024-08-06] MEDS: ASPIR LOW (ENTERIC COATED) 81 MG PO (21:49)
[2024-08-06 23:36] VITALS: BP 152/74
[2024-08-07] MEDS: COLACE 100 MG PO (06:04)
[2024-08-07 07:00] VITALS: BP 152/74
[2024-08-07 07:03] LABS: Glucose - Point of Care 139 mg/dl (70-99)
--- NOTE | 2024-08-07 07:57 | W.PN.HOSP.TC ---
Addendum entered and electronically signed by Jo-Ann Hawthorne MD 08/07/24 10:46:
A/P:
# SBO, appears to be intermittent
repeat AXR from 08/06 noted mildly dilated small bowel suggesting distal small bowel obstruction. Also moderate-large amount of feces in the nondilated colon suggesting possible constipation
Change to clears with abd pain, ADAT
Stop opiate
Cont [employer]EL[employer] (pt will bring in)
Start bowel regimen Senokot-S and Miralax , s/p Dulcolax x1
Check for bowel movement
# Syncope, suspect secondary to dehydration with GI symptoms and symptomatic anemia
s/p 1 unit pRBC
Hgb stable
# Fall from syncope
Last known echo in April 2023 showed EF of 60 to 65% no significant valvular heart disease. Mild MR was noted
CT head and cervical spine without any acute pathology.
Abdomen/pelvis CT showed acute burst fracture of T12, minimal fracture fragment retropulsion, no associated high-grade narrowing of the canal.
He is in significant pain from the fracture
apprec neurosurgery, TLSO brace ordered when patient is ambulating/weightbearing
cont pain control
PT/OT/PMR recc acute rehab, however this was declined by insurance. PMR appealed and was denied. Family appealing
# Mild leukocytosis likely 2/2 steroid
ID consulted
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
s/p stress dose steroid, back to outpt doses
# FLORENCE
Serum creatinine now 1.6 from baseline 1.2
Hold prior to admission losartan
Small bolus NSS 250 cc today
Monitor serum creatinine
# anemia of chronic disease
s/p 1 unit pRBC
apprec GI, s/p EGD 07/29/24 with short segment of Pickard's, retained food in stomach, no other significant findings
# History of CAD status post prior coronary stents-continue with aspirin.
# R knee pain 2/2 ?pseudogout
Pain resolved following colchicine
Full code
DVT ppx: Lovenox SQ
Dispo: TBD, [facility]
Original Note:
Today's Communication/Plan
-
Treat constipation
clear liquid diet
Repeat obstruction series tomorrow
consult general surgery
Assessment / Plan
Assessment / Plan
Impression
Patient is a 74 year old male with scleroderma who presented with small bowel obstruction from dysmotility due to scleroderma, resolved. Patient did have syncope and fall, CT abdomen revealed a T12 burst fracture, neurosurgery consult appreciated,
TLSO brace placed. Patient had black stools with anemia early on, received 1 pint of blood, endoscopy negative for any source of bleed, hemoglobin stable around 9.
Assessment/plan
1.Small bowel obstruction secondary to chronic dysmotility from scleroderma
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
Infectious workup until now has been negative, no leukocytes in stool, norovirus negative, Campylobacter negative, Salmonella Shigella C. difficile testing pending, blood cultures negative
GI consult appreciated -patient's hemoglobin stable, endoscopy done, no bleeder found
Repeat abdominal x-ray showed no significant dilated air-filled loops of bowel
General surgery recommended to advance diet to low residue which the patient has been tolerating okay, but complains of abdominal discomfort with diarrhea following, patient feels better after a bowel movement, diarrhea is not watery but soft
consistency stool that is not black in color or has blood in it
Patient's hemoglobin stable around 9 right now
Endoscopy 07/29/24
Impression: - Normal proximal esophagus.
- Small amount of retained fluid in the mid esophagus,
suctioned and cleared.
- [place]-colored mucosa suspicious for short-segment
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
C0-M1 per [place] criteria. Biopsied.
- Otherwise, normal esophagus without any evidence of
esophagitis, jimy-resendez tears or ulcerations
- Multiple, benign appearing gastric polyps.
Endoscopically, consistent with benign fundic gland
polyps and left intact as all were less than 1 cm
- A small amount of food (residue) in the gastric
antrum
- Otherwise, normal stomach on direct and retroflexion
views
- Small amount of retained food/residue in the
examined duodenum up to the third portion
Obstruction series repeated on August 01, 2024 due to rising TLC count,nausea and constipation-came back negative -
The examination was otherwise normal.
08/07/2024
Patient had constipation, obstruction series done, that showed large amount of gas and multiple loops, suggesting distal small bowel obstruction, large amount of soft tissue pieces of in nondilated colon suggesting constipation
Keep patient on clear liquids for now, give bolus fluid, consult general surgery, treat constipation aggressively
2. Leukocytosis
Patient has had gradual increasing trend in TLC count which started to trend down again on its own
Patient's diarrhea resolved on , July 31, 2024
No fever, no source of infection
Patient was on steroids stress dose of 25 mg Solu-Cortef, discontinued on August 01, 2024 and is back on outpatient dose of 5 mg daily
Could be related to steroids/1 episode of fever, workup negative, no fever in last 48 hours
ID consult appreciated-suspected pseudogout flare in setting of sudden onset of exquisite right knee pain in setting of steroid use that could also explain the thrombocytosis
Patient given colchicine 1.2 mg stat and then 0.6 mg after 1 hour. Patient reports significant improvement in pain
Patient's TLC started to rise on July 31, continued to rise till August 03 and then started to trend down on its own without any interventions-could be due to steroid effect
3.Syncope-
-Suspect secondary to dehydration with ongoing GI symptoms and anemia
EKG with sinus rhythm and nonspecific ST-T changes. Not on any steve blocking agents. Last known echo in April 2023 showed EF of 60 to 65% no significant valvular heart disease. Mild MR was noted
4.Fall from syncope
Patient had a CT of the head and cervical spine without any acute pathology.
Abdomen pelvis CT shows- Acute burst fracture of T12 as above. Minimal fracture fragment retropulsion, no associated high-grade narrowing of the canal
Significant pain from the fracture. No sciatica. No lower extremity strength issue
Neurosurgery consult appreciated, TLSO brace ordered when patient is ambulating/weightbearing
continue physical therapy with core strengthening and use topical pain medications as the patient does not want to take oral at this time.
5.Anemia--patient's hemoglobin dropped to 7.5 on July 26, 2024 (coffee ground emesis)-and 1 pint of blood was transfused. Patient's hemoglobin has been stable since then. endoscopy negative, Hemoglobin stable around 8-9. No acute concerns on
endoscopy, outpatient GI evaluation and monitoring.
Scleroderma with SIBO--continue with rifaximin. On chronic prednisone--resumed home doses of prednisone 5 mg daily
FLORENCE--resolved
History of CAD status post prior coronary stents-continue with aspirin.
Essential hypertension-amlodipine 5 mg daily, monitor closely
Hyperlipidemia: Statin
PT/OT evaluation done who suggested acute rehab, which was denied and based on physiatry consult by Dr.Van Ko Alcala, appealed for acute [id number] plans to appeal again
If not acute rehab,will go home on physical therapy
Full code
DVT prophylaxis-sequential compression devices
Anticipated Discharge: 24 - 48 hours
Subjective/Interval History
-
Date of Service: August 07, 2024
Patient complained of constipation yesterday, obstruction series done, distal small bowel obstruction with constipation, patient did not eat anything overnight, feels better than yesterday had small amount of stool output yesterday
Objective Data
-
Labs:
Laboratory Results
08/07/24
07:33
Sodium Pending
Potassium Pending
Chloride Pending
Carbon Dioxide Pending
BUN Pending
Creatinine Pending
Glucose Pending
Calcium Pending
Vital Signs:
Vital Signs
Temp Pulse Resp BP Pulse Ox
98.6 F 87 18 152/74 98
08/06/24 23:36 08/06/24 23:36 08/06/24 23:36 08/06/24 23:36 08/06/24 23:36
I&O
08/06/24 08/07/24 08/08/24
06:59 06:59 06:59
Intake Total 720 / 720 960 / 960
Balance 720 / 720 960 / 960
Review of Systems
-
All other systems: Reviewed and negative
Physical Exam
-
General: Appears Chronically Ill
HEENT: Normocephalic, Atraumatic and Moist Mucous Membranes
Respiratory: Clear to Auscultation
Cardiac: Regular Rhythm and S1/S2
GI: Soft, Nontender and Other (Decreased bowel sounds)
Musculoskeletal: No Clubbing, No Cyanosis and No Edema
Neuro: Awake, Oriented and No Motor Deficits
Psych: Calm
[2024-08-07] MEDS: NOVOLOG FLEXPEN-LOW RESISTANCE SC ×2 (08:15→11:48)
[2024-08-07] MEDS: DULCOLAX 10 MG RECTAL (08:18)
[2024-08-07] MEDS: SENOKOT-S 1 TABLET PO ×2 (08:18→21:06)
[2024-08-07] MEDS: MIRALAX 17 GRAMS PO (08:18)
[2024-08-07] MEDS: LIPITOR 80 MG PO (08:18)
[2024-08-07] MEDS: XIFAXAN 275 MG PO (08:19)
[2024-08-07] MEDS: PROTONIX 40 MG PO (08:19)
[2024-08-07] MEDS: NORVASC 5 MG PO (08:19)
[2024-08-07] MEDS: DELTASONE 5 MG PO (08:19)
[2024-08-07] MEDS: MESTINON 30 MG PO ×2 (08:20→21:06)
[2024-08-07] MEDS: LIDOCAINE 4% PATCH TOPICAL (08:25)
[2024-08-07] MEDS: D5/0.9% SODIUM CHLORIDE 1000 IV (09:09)
[2024-08-07 10:20] LABS: Blood Urea Nitrogen 26 mg/dl (9-20); Calcium 9.1 mg/dl (8.4-10.2); Carbon Dioxide 22 mmol/L (22-30); Chloride 104 mmol/L (98-107); Estimated Creatinine Clearance 47 ml/min; Glucose 122 mg/dl (70-99); Potassium 4.6 mmol/L (3.5-5.1); Sodium 139 mmol/L (135-145); eGFR 53.07
[2024-08-07 11:46] LABS: Glucose - Point of Care 159 mg/dl (70-99)
--- NOTE | 2024-08-07 12:09 | CM ---
CM reviewed chart, patient seen bedside, reports no updates from insurance regarding member appeal. Per chart, general surgery consulted. CM will continue to follow for all discharge planning needs.
Plan; awaiting member appeal for acute rehab vs home with [facility] when stable.
[2024-08-07 15:30] VITALS: BP 147/68
[2024-08-07] MEDS: ZOFRAN 4 MG IV (15:59)
[2024-08-07] MEDS: LOVENOX 30 MG SC (17:05)
[2024-08-07] MEDS: OFIRMEV 100 IV (17:56)
[2024-08-07 18:05] LABS: Glucose - Point of Care 177 mg/dl (70-99)
[2024-08-07] MEDS: NOVOLOG FLEXPEN-LOW RESISTANCE 1 UNITS SC (18:09)
[2024-08-07] MEDS: DILAUDID 0.5 MG IV (20:27)
[2024-08-07] MEDS: ASPIR LOW (ENTERIC COATED) 81 MG PO (21:06)
[2024-08-07] MEDS: NON-FORMULARY ITEM 2 MG PO (21:07)
[2024-08-07 21:28] LABS: Glucose - Point of Care 152 mg/dl (70-99)
[2024-08-07 23:42] VITALS: BP 146/74
[2024-08-08] MEDS: D5/0.9% SODIUM CHLORIDE 1000 IV (01:57)
[2024-08-08] MEDS: DILAUDID 0.5 MG IV ×2 (04:46→21:36)
[2024-08-08 07:05] VITALS: BP 146/78
[2024-08-08 08:43] LABS: % Basophils 0.7 % (0-2); % Eosinophils 2.6 % (0-6); % Immature Granulocytes 0.5 % (0-0.5); % Lymphocytes 15.2 % (20.5-51.1); % Monocytes 9.4 % (1.7-9.3); % Neutrophils 71.6 % (42.2-75.2); Absolute Basophils 0.1 10^3/uL (0-0.2); Absolute Eosinophils 0.2 10^3/uL (0-0.7); Absolute Lymphocytes 1.3 10^3/uL (1.2-3.4); Absolute Monocytes 0.8 10^3/uL (0.1-0.6); Absolute Neutrophils 6.3 10^3/uL (1.4-6.5); Hematocrit 33.5 % (39.0-52.0); Hemoglobin 10.3 g/dL (13.0-18.0); Mean Corp Hgb Conc. 30.7 g/dL (33.0-37.0); Mean Corpuscular Hgb 24.8 pg (27.0-31.0); Mean Corpuscular Volume 80.7 fL (80.0-94.0); Nucleated Red Blood Cells % 0 % (-); Platelet Count 541 10^3/uL (130-400); Red Blood Cell Count 4.15 10^6/uL (4.70-6.10); Red Cell Dist. Width 16.7 % (11.5-14.5); White Blood Cell Count 8.8 10^3/uL (4.8-10.8)
[2024-08-08] MEDS: LIPITOR 80 MG PO (08:44)
[2024-08-08] MEDS: MESTINON 30 MG PO ×2 (08:44→20:20)
[2024-08-08] MEDS: PROTONIX 40 MG PO (08:44)
[2024-08-08] MEDS: COLACE 100 MG PO (08:44)
[2024-08-08] MEDS: DELTASONE 5 MG PO (08:45)
[2024-08-08] MEDS: SENOKOT-S 1 TABLET PO (08:45)
[2024-08-08] MEDS: NORVASC 5 MG PO (08:45)
[2024-08-08] MEDS: XIFAXAN 275 MG PO (08:45)
[2024-08-08] MEDS: NOVOLOG FLEXPEN-LOW RESISTANCE SC ×3 (08:45→17:12)
[2024-08-08] MEDS: MIRALAX 17 GRAMS PO (08:45)
[2024-08-08 08:46] LABS: Glucose - Point of Care 139 mg/dl (70-99)
[2024-08-08] MEDS: LIDOCAINE 4% PATCH TOPICAL (08:50)
[2024-08-08] MEDS: ZOFRAN 4 MG IV ×2 (08:50→19:20)
[2024-08-08 09:10] LABS: Blood Urea Nitrogen 22 mg/dl (9-20); Calcium 8.7 mg/dl (8.4-10.2); Carbon Dioxide 24 mmol/L (22-30); Chloride 104 mmol/L (98-107); Estimated Creatinine Clearance 47 ml/min; Glucose 136 mg/dl (70-99); Magnesium 1.8 mg/dl (1.6-2.3); Potassium 4.1 mmol/L (3.5-5.1); Sodium 139 mmol/L (135-145); eGFR 53.07
[2024-08-08 11:40] LABS: Glucose - Point of Care 158 mg/dl (70-99)
[2024-08-08] MEDS: DILAUDID 0.25 MG IV ×2 (11:50→19:16)
--- NOTE | 2024-08-08 12:00 | PTCARENOTE ---
08/08- Patient reports 05/08 significant sharp stabbing LLQ pains that radiate up the L-side of his abdomen. He continues to be nauseous with a poor appetite as he's been for several days. L-side abdomen is mildly firm to touch, Non-distended,
+BSX4. Last BM was diarrhea this morning. Notified Physician. Continue to monitor.
[2024-08-08] MEDS: OMNIPAQUE 50 ML PO (13:39)
[2024-08-08 15:00] VITALS: BP 168/81
--- NOTE | 2024-08-08 15:08 | W.PN.HOSP.TC ---
Addendum entered and electronically signed by Jo-Ann Hawthorne MD 08/08/24 21:48:
CT AP noted 'Acute uncomplicated diverticulitis of the distal descending colon',
started Zosyn,
increase Dilaudid to [id number]
Addendum entered and electronically signed by Jo-Ann Hawthorne MD 08/08/24 15:28:
I personally performed a history and physical exam of the patient and discussed management with the resident. I reviewed the resident's note and agree with the documented findings and plan of care HPI/CC.
A/P:
# SBO likely due to underlying scleroderma, appears to be intermittent
Follow repeat CT AP 08/08/2024 for more severe abdominal pain which patient felt is different from prior
N.p.o. again, IVF support
Limits narcotic
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
Discussed with general surgery, unfortunately unable to provide further recommendation
# Syncope, suspect secondary to dehydration with GI symptoms and symptomatic anemia
s/p 1 unit pRBC
Hgb stable
# Fall from syncope
Last known echo in April 2023 showed EF of 60 to 65% no significant valvular heart disease. Mild MR was noted
CT head and cervical spine without any acute pathology.
Abdomen/pelvis CT showed acute burst fracture of T12, minimal fracture fragment retropulsion, no associated high-grade narrowing of the canal.
He is in significant pain from the fracture
apprec neurosurgery, TLSO brace ordered when patient is ambulating/weightbearing
cont pain control
PT/OT/PMR recc acute rehab, however this was declined by insurance. PMR appealed and was denied. Family appealing
# Mild leukocytosis likely 2/2 steroid
ID consulted
pt non-toxic appearing, no fever, no Abx except PLATE WASHER rifaximin
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
s/p stress dose steroid, back to outpt doses
# FLORENCE
Serum creatinine now 1.6 from baseline 1.2
Hold prior to admission losartan
Small bolus NSS 250 cc today
Monitor serum creatinine
# anemia of chronic disease
s/p 1 unit pRBC
apprec GI, s/p EGD 07/29/24 with short segment of Pickard's, retained food in stomach, no other significant findings
# History of CAD status post prior coronary stents-continue with aspirin.
# R knee pain 2/2 ?pseudogout
Pain resolved following colchicine
Full code
DVT ppx: Lovenox SQ
Dispo: TBD, [facility]
Original Note:
Today's Communication/Plan
-
CT abdomen with oral contrast
Relief pain
Assessment / Plan
Assessment / Plan
Impression
Patient is a 74 year old male with scleroderma who presented with small bowel obstruction from dysmotility due to scleroderma, resolved. Patient did have syncope and fall, CT abdomen revealed a T12 burst fracture, neurosurgery consult appreciated,
TLSO brace placed. Patient had black stools with anemia early on, received 1 pint of blood, endoscopy negative for any source of bleed, hemoglobin stable around 9.
Assessment/plan
1.Small bowel obstruction secondary to chronic dysmotility from scleroderma
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
Infectious workup until now has been negative, no leukocytes in stool, norovirus negative, Campylobacter negative, Salmonella Shigella C. difficile testing pending, blood cultures negative
GI consult appreciated -patient's hemoglobin stable, endoscopy done, no bleeder found
Repeat abdominal x-ray showed no significant dilated air-filled loops of bowel
General surgery recommended to advance diet to low residue which the patient has been tolerating okay, but complains of abdominal discomfort with diarrhea following, patient feels better after a bowel movement, diarrhea is not watery but soft
consistency stool that is not black in color or has blood in it
Patient's hemoglobin stable around 9 right now
Endoscopy 07/29/24
Impression: - Normal proximal esophagus.
- Small amount of retained fluid in the mid esophagus,
suctioned and cleared.
- Micro-colored mucosa suspicious for short-segment
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
C0-M1 per Lecompte criteria. Biopsied.
- Otherwise, normal esophagus without any evidence of
esophagitis, jimy-resendez tears or ulcerations
- Multiple, benign appearing gastric polyps.
Endoscopically, consistent with benign fundic gland
polyps and left intact as all were less than 1 cm
- A small amount of food (residue) in the gastric
antrum
- Otherwise, normal stomach on direct and retroflexion
views
- Small amount of retained food/residue in the
examined duodenum up to the third portion
Obstruction series repeated on August 01, 2024 due to rising TLC count,nausea and constipation-came back negative -
The examination was otherwise normal.
08/07/2024
Patient had constipation, obstruction series done, that showed large amount of gas and multiple loops, suggesting distal small bowel obstruction, large amount of soft tissue pieces of in nondilated colon suggesting constipation
Keep patient on clear liquids for now, give bolus fluid, consult general surgery, treat constipation aggressively
08/08/2024
Patient had bowel movement yesterday, abdominal x-ray repeated today on August 08, showed no evidence of bowel obstruction
Patient has pain in left lower quadrant
Not relieved by low-dose hydromorphone
Plan to do CT abdomen with oral contrast only, given serum creatinine 1.4
2. Leukocytosis
Patient has had gradual increasing trend in TLC count which started to trend down again on its own
Patient's diarrhea resolved on , July 31, 2024
No fever, no source of infection
Patient was on steroids stress dose of 25 mg Solu-Cortef, discontinued on August 01, 2024 and is back on outpatient dose of 5 mg daily
Could be related to steroids/1 episode of fever, workup negative, no fever in last 48 hours
ID consult appreciated-suspected pseudogout flare in setting of sudden onset of exquisite right knee pain in setting of steroid use that could also explain the thrombocytosis
Patient given colchicine 1.2 mg stat and then 0.6 mg after 1 hour. Patient reports significant improvement in pain
Patient's TLC started to rise on July 31, continued to rise till August 03 and then started to trend down on its own without any interventions-could be due to steroid effect
3.Syncope-
-Suspect secondary to dehydration with ongoing GI symptoms and anemia
EKG with sinus rhythm and nonspecific ST-T changes. Not on any steve blocking agents. Last known echo in April 2023 showed EF of 60 to 65% no significant valvular heart disease. Mild MR was noted
4.Fall from syncope
Patient had a CT of the head and cervical spine without any acute pathology.
Abdomen pelvis CT shows- Acute burst fracture of T12 as above. Minimal fracture fragment retropulsion, no associated high-grade narrowing of the canal
Significant pain from the fracture. No sciatica. No lower extremity strength issue
Neurosurgery consult appreciated, TLSO brace ordered when patient is ambulating/weightbearing
continue physical therapy with core strengthening and use topical pain medications as the patient does not want to take oral at this time.
5.Anemia--patient's hemoglobin dropped to 7.5 on July 26, 2024 (coffee ground emesis)-and 1 pint of blood was transfused. Patient's hemoglobin has been stable since then. endoscopy negative, Hemoglobin stable around 8-9. No acute concerns on
endoscopy, outpatient GI evaluation and monitoring.
Scleroderma with SIBO--continue with rifaximin. On chronic prednisone--resumed home doses of prednisone 5 mg daily
FLORENCE--resolved
History of CAD status post prior coronary stents-continue with aspirin.
Essential hypertension-amlodipine 5 mg daily, monitor closely
Hyperlipidemia: Statin
PT/OT evaluation done who suggested acute rehab, which was denied and based on physiatry consult by Dr.Van Ko Alcala, appealed for acute [id number] plans to appeal again
If not acute rehab,will go home on physical therapy
Full code
DVT prophylaxis-sequential compression devices
Anticipated Discharge: 24 - 48 hours
Subjective/Interval History
-
Date of Service: August 08, 2024
Patient complaining of nausea and consistent left lower quadrant pain that is moderate to severe in intensity
Objective Data
-
Labs:
Laboratory Results
08/08/24
07:10
WBC 8.8
Hgb 10.3 L
Hct 33.5 L
Plt Count 541 H
Sodium 139
Potassium 4.1
Chloride 104
Carbon Dioxide 24
BUN 22 H
Creatinine 1.4 H
Glucose 136 H
Calcium 8.7
Vital Signs:
Vital Signs
Temp Pulse Resp BP Pulse Ox
98.5 F 78 16 146/78 97
08/08/24 07:05 08/08/24 07:05 08/08/24 07:05 08/08/24 07:05 08/08/24 08:45
I&O
08/07/24 08/08/24 08/09/24
06:59 06:59 06:59
Intake Total 960 / 960 1450 / 1450
Balance 960 / 960 1450 / 1450
Review of Systems
-
All other systems: Reviewed and negative
Physical Exam
-
General: Appears Chronically Ill (Side of the stomach for pain)
HEENT: Normocephalic and Atraumatic
Respiratory: Clear to Auscultation
Cardiac: Regular Rhythm and S1/S2
GI: Soft, Normal Bowel Sounds and Tender (And left lower quad)
Musculoskeletal: No Clubbing, No Cyanosis and No Edema
Skin: Other (Scleroderma skin changes)
Neuro: Awake and Oriented
[2024-08-08 16:59] LABS: Glucose - Point of Care 119 mg/dl (70-99)
[2024-08-08] MEDS: LOVENOX SC (17:12)
--- NOTE | 2024-08-08 18:23 | PTCARENOTE ---
08/08- Patient c/o severe 05/08 sharp stabbing pain throughout L and Lower abdomen again at this time. States increased nausea but denies vomiting. States no appetite. Abdomen is still nondistended but firm on L-quadrants. +BSX4. Son and Patient
are now both escalated stating they have not seen an Attending or Specialist Physician for 2 days now. They state Resident 'is nice but does not take initiative. We feel like we're going in circles with her. What's the plan here?' Patient's son
then said, 'I'm sorry, I have the capability of escalating to administration, but all I want to see is my Dad not in pain. He can't just sit in pain for 2 hours.' Dilaudid 0.25mg is ordered Q12, but next dose is not scheduled until 20:00. This
RN is able to validate concerns with therapeutic and validating conversation, assuring patients I will notify Physician immediately. Notified Attending Physician, Resident and GI of new symptoms; following CT results from today's abdominal CT.
Notified of potential escalation.
[2024-08-08] MEDS: ZOSYN 50 IV (20:20)
[2024-08-08] MEDS: ASPIR LOW (ENTERIC COATED) 81 MG PO (21:14)
[2024-08-08] MEDS: NON-FORMULARY ITEM PO ×2 (21:14→21:17)
[2024-08-08 21:56] LABS: Glucose - Point of Care 141 mg/dl (70-99)
[2024-08-08 23:00] VITALS: BP 148/79
[2024-08-09] MEDS: D5/0.9% SODIUM CHLORIDE 1000 IV (00:13)
[2024-08-09] MEDS: ZOSYN 50 IV ×4 (02:25→20:25)
[2024-08-09] MEDS: DILAUDID 0.5 MG IV ×2 (03:15→21:00)
[2024-08-09 07:05] VITALS: BP 163/90
[2024-08-09 07:24] LABS: Glucose - Point of Care 161 mg/dl (70-99)
[2024-08-09 07:39] LABS: % Basophils 0.8 % (0-2); % Immature Granulocytes 0.3 % (0-0.5); % Lymphocytes 13.7 % (20.5-51.1); % Monocytes 10.9 % (1.7-9.3); % Neutrophils 71.3 % (42.2-75.2); Absolute Basophils 0.1 10^3/uL (0-0.2); Absolute Eosinophils 0.3 10^3/uL (0-0.7); Absolute Lymphocytes 1.2 10^3/uL (1.2-3.4); Absolute Neutrophils 6.4 10^3/uL (1.4-6.5); Hematocrit 29.7 % (39.0-52.0); Hemoglobin 9.4 g/dL (13.0-18.0); Mean Corp Hgb Conc. 31.6 g/dL (33.0-37.0); Mean Corpuscular Hgb 24.9 pg (27.0-31.0); Mean Corpuscular Volume 78.6 fL (80.0-94.0); Mean Platelet Volume 8.9 fL (7.4-10.4); Nucleated Red Blood Cells % 0 % (-); Platelet Count 536 10^3/uL (130-400); Red Blood Cell Count 3.78 10^6/uL (4.70-6.10); Red Cell Dist. Width 16.3 % (11.5-14.5)
[2024-08-09 07:59] LABS: Blood Urea Nitrogen 14 mg/dl (9-20); Calcium 8.7 mg/dl (8.4-10.2); Carbon Dioxide 22 mmol/L (22-30); Chloride 104 mmol/L (98-107); Estimated Creatinine Clearance 51 ml/min; Glucose 147 mg/dl (70-99); Magnesium 1.7 mg/dl (1.6-2.3); Sodium 138 mmol/L (135-145); eGFR 58.01
--- NOTE | 2024-08-09 07:59 | PTCARENOTE ---
pt aox3, pt c/o le pain, no c/o sob, chest pain, denies n/v. awaiting md assessment, and testing. pt resting
--- NOTE | 2024-08-09 08:13 | PTCARENOTE ---
pt aox3, reports left abd abd pain, continuous, curently tolerable at 3/10. patient frustrated this morning with pain management aspect of admission, encouraged pt to talk to md this am re:concerns. pt npo, see mar for medical laboratory scientist, resting
[2024-08-09] MEDS: NOVOLOG FLEXPEN-LOW RESISTANCE SC ×2 (08:23→13:07)
[2024-08-09] MEDS: MIRALAX PO (08:25)
[2024-08-09] MEDS: LIDOCAINE 4% PATCH TOPICAL (08:25)
[2024-08-09] MEDS: LIPITOR 80 MG PO (08:26)
[2024-08-09] MEDS: MESTINON PO (08:26)
[2024-08-09] MEDS: DELTASONE 5 MG PO (08:27)
[2024-08-09] MEDS: PROTONIX 40 MG PO (08:27)
[2024-08-09] MEDS: XIFAXAN PO (08:27)
[2024-08-09] MEDS: NORVASC 5 MG PO (08:27)
--- NOTE | 2024-08-09 11:38 | CM ---
Chart reviewed and son has a lot of questions regarding follow up treatment of patient, physician made aware and has met with patient, per son family Peer to Peer in progress, patient with TLSO.
Plan: To follow with progress, patient and son are hoping that patient gets approved for [facility].
--- NOTE | 2024-08-09 12:03 | W.PN.HOSP.TC ---
Today's Communication/Plan
-
clears
back to stress dose steroids
cont abx
PT/OT
Assessment / Plan
Assessment / Plan
pt is a 74 year old male
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
Salmonella Shigella, blood cultures negative
recurrent abdominal pain--CT scan 08/08 showed diverticulitis with enteritis--zosyn started (possible cause of leukocytosis which started last week?)--restart stress dose steroids and stop prednisone--cont IV dilaudid as needed (difficult because pt
needs pain meds BUT has propensity for SBOs)
Syncope--resolved--suspect secondary to dehydration with GI symptoms and symptomatic anemia --s/p 1 unit pRBC--EGD 07/29 with possible Fito's, no ulcers noted
Fall from syncope--patient had a CT of the head and cervical spine without any acute pathology--Acute burst fracture of X74--Ecefjpm fracture fragment retropulsion, no associated high-grade narrowing of the canal--apprec neurosurgery, TLSO brace
ordered when patient is ambulating/weightbearing-- cont pain control--PT/OT
leukocytosis--WBC started to rise--up to 15.8, back to normal on 08/06/24--OBS series neg on 08/01, 08/07 showed distal SBO/constipation, 08/08 CT scan with diverticulitis and enteritis as above--was on stress dose steroids but back to outpt doses and will
place back on stress dose steroids--will likely need taper back to outpt doses when ready --also with pseudogout--apprec ID--relieved with colchicine
Scleroderma with SIBO--continue with rifaximin. On chronic prednisone--was on stress dose steroids--not tolerating outpt doses--back to stress doses
FLORENCE--creat now at baseline--suspect secondary to GI volume losses--resolved--restarted losartan.
anemia of chronic disease---lower than baseline--HGB down to 7.5 on 07/26/24 --(11.6 on 07/20)--pt admitted to vomiting black coffee ground looking material over the holidays...s/p 1 unit pRBC--apprec GI, s/p EGD 07/29/24 with short
segment of Pickard's--retained food in stomach--no other significant findings
History of CAD status post prior coronary stents-continue with aspirin.
Full code
apprec PM&R--insurance denied acute rehab--Dr. Gamino Why appealed and that was denied too--pt wants to appeal again prior to d/c--he wants to go either to [place] or home--NOT SNF
will need to reach out to Dr. Elder/Dr. Fowler on Sunday, if no better would transfer pt to [place].....
spoke with pt and son (by phone) with LION Lopez as witness re: plan
Anticipated Discharge: > 48 hours
Subjective/Interval History
-
Date of Service: August 09, 2024
Patient and son frustrated with lack of definitive plan and worsening abdominal pain
Objective Data
-
Labs:
Laboratory Results
08/09/24
07:14
WBC 9.0
Hgb 9.4 L
Hct 29.7 L
Plt Count 536 H
Sodium 138
Potassium 4.0
Chloride 104
Carbon Dioxide 22
BUN 14
Creatinine 1.3
Glucose 147 H
Calcium 8.7
Vital Signs:
max temp for 24 hours
08/08/24
15:00
Temp 98.6 F
Vital Signs
Temp Pulse Resp BP Pulse Ox
98.2 F 76 20 163/90 96
08/09/24 07:05 01/11/25 07:05 08/09/24 07:05 08/09/24 07:05 08/09/24 07:05
I&O
08/08/24 08/09/24 08/10/24
06:59 06:59 06:59
Intake Total 1450 / 1450 1520 / 1520
Balance 1450 / 1450 1520 / 1520
Review of Systems
-
All other systems: Reviewed and negative
Abdomen/GI: Reports Abdominal Pain
Physical Exam
-
General: Appears Chronically Ill
HEENT: Normocephalic and Atraumatic
Respiratory: Clear to Auscultation; Negative Wheezes or Rhonchi
Cardiac: Regular Rhythm and S1/S2; Negative Murmur
GI: Soft, Nondistended and Tender (LLQ without guarding or rebound); Negative Normal Bowel Sounds (hypoactive bowel sounds)
Musculoskeletal: No Clubbing, No Cyanosis, No Edema and Other (fingers c/w scleroderma)
Neuro: Awake and Alert
Psych: Calm
[2024-08-09 12:18] LABS: Glucose - Point of Care 171 mg/dl (70-99)
--- NOTE | 2024-08-09 14:33 | PTCARENOTE ---
pt feeling a little better this afternoon, feels some relief from left abd pain, feels comfortable and confident with plan established with dr alonso and case dianne (jose carlos) today. felt like he was heard by medical staff and casemgt. pt was oob to
chair with abd brace for over an hour, sipping on clear liqs, tolerating thus far, back to bed, call reyes in reach
[2024-08-09 15:00] VITALS: BP 138/74
[2024-08-09 16:38] LABS: Glucose - Point of Care 159 mg/dl (70-99)
[2024-08-09] MEDS: SOLU-CORTEF 25 MG IV (17:04)
[2024-08-09] MEDS: LOVENOX 30 MG SC (17:05)
[2024-08-09] MEDS: NOVOLOG FLEXPEN-LOW RESISTANCE 1 UNITS SC (17:06)
[2024-08-09] MEDS: D5/0.9% SODIUM CHLORIDE IV (17:10)
[2024-08-09] MEDS: NON-FORMULARY ITEM PO (20:24)
[2024-08-09] MEDS: ASPIR LOW (ENTERIC COATED) 81 MG PO (20:27)
[2024-08-09 21:59] LABS: Glucose - Point of Care 209 mg/dl (70-99)
[2024-08-09 23:00] VITALS: BP 138/74
[2024-08-10] MEDS: SOLU-CORTEF 25 MG IV ×4 (00:57→23:11)
[2024-08-10] MEDS: ZOSYN 50 IV ×4 (01:00→20:31)
[2024-08-10 07:00] VITALS: BP 136/78
[2024-08-10 07:54] LABS: % Basophils 0.6 % (0-2); % Eosinophils 0.2 % (0-6); % Immature Granulocytes 0.2 % (0-0.5); % Lymphocytes 11.6 % (20.5-51.1); % Monocytes 6.4 % (1.7-9.3); Absolute Basophils 0.1 10^3/uL (0-0.2); Absolute Monocytes 0.6 10^3/uL (0.1-0.6); Absolute Neutrophils 7.2 10^3/uL (1.4-6.5); Hematocrit 30.3 % (39.0-52.0); Hemoglobin 9.4 g/dL (13.0-18.0); Mean Corpuscular Hgb 24.7 pg (27.0-31.0); Mean Corpuscular Volume 79.5 fL (80.0-94.0); Mean Platelet Volume 8.7 fL (7.4-10.4); Nucleated Red Blood Cells % 0 % (-); Platelet Count 461 10^3/uL (130-400); Red Blood Cell Count 3.81 10^6/uL (4.70-6.10); Red Cell Dist. Width 16.4 % (11.5-14.5); White Blood Cell Count 8.9 10^3/uL (4.8-10.8)
[2024-08-10 08:08] LABS: Glucose - Point of Care 136 mg/dl (70-99)
[2024-08-10] MEDS: NOVOLOG FLEXPEN-LOW RESISTANCE SC ×2 (08:17→16:25)
[2024-08-10 08:21] LABS: ALT (SGPT) 13 U/L (0-50); AST (SGOT) 16 U/L (17-59); Albumin 3.7 g/dl (3.5-5.0); Alkaline Phosphatase 120 U/L (38-126); Blood Urea Nitrogen 12 mg/dl (9-20); Calcium 8.9 mg/dl (8.4-10.2); Carbon Dioxide 25 mmol/L (22-30); Chloride 102 mmol/L (98-107); Estimated Creatinine Clearance 47 ml/min; Glucose 137 mg/dl (70-99); Magnesium 1.8 mg/dl (1.6-2.3); Potassium 4.1 mmol/L (3.5-5.1); Sodium 139 mmol/L (135-145); Total Bilirubin 0.9 mg/dl (0.2-1.3); Total Protein 6.2 g/dl (6.3-8.2); eGFR 53.07
[2024-08-10 09:07] LABS: Erythrocyte Sed Rate 10 mm/hour (0-20)
[2024-08-10] MEDS: NORVASC 5 MG PO (09:29)
[2024-08-10] MEDS: LIPITOR 80 MG PO (09:29)
[2024-08-10] MEDS: PROTONIX 40 MG PO (09:30)
[2024-08-10] MEDS: XIFAXAN PO (09:32)
[2024-08-10] MEDS: LIDOCAINE 4% PATCH TOPICAL (09:32)
[2024-08-10] MEDS: MIRALAX PO (09:32)
[2024-08-10 11:40] LABS: Glucose - Point of Care 215 mg/dl (70-99)
[2024-08-10] MEDS: NOVOLOG FLEXPEN-LOW RESISTANCE 2 UNITS SC (12:23)
--- NOTE | 2024-08-10 12:49 | W.PN.HOSP.TC ---
Today's Communication/Plan
-
advance diet to FULLS
diarrhea likely due to ABX--no concern for C. diff at this point
Assessment / Plan
Assessment / Plan
pt is a 74 year old male
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
Salmonella Shigella, blood cultures negative
recurrent abdominal pain--CT scan 08/08 showed diverticulitis with enteritis--zosyn started (possible cause of leukocytosis which started last week?)--restart stress dose steroids (seems to be better) and stop prednisone--cont IV dilaudid as needed
(difficult because pt needs pain meds BUT has propensity for SBOs)
Syncope--resolved--suspect secondary to dehydration with GI symptoms and symptomatic anemia --s/p 1 unit pRBC--EGD 07/29 with possible Fito's, no ulcers noted
Fall from syncope--patient had a CT of the head and cervical spine without any acute pathology--Acute burst fracture of B24--Elcmvfc fracture fragment retropulsion, no associated high-grade narrowing of the canal--apprec neurosurgery, TLSO brace
ordered when patient is ambulating/weightbearing-- cont pain control--PT/OT
leukocytosis--WBC started to rise--up to 15.8, back to normal on 08/06/24--OBS series neg on 08/01, 08/07 showed distal SBO/constipation, 08/08 CT scan with diverticulitis and enteritis as above--was on stress dose steroids but back to outpt doses and will
place back on stress dose steroids--will likely need taper back to outpt doses when ready --also with pseudogout--apprec ID--relieved with colchicine
Scleroderma with SIBO--continue with rifaximin. On chronic prednisone--was on stress dose steroids--not tolerating outpt doses--back to stress doses
FLORENCE--creat now at baseline--suspect secondary to GI volume losses--resolved--restarted losartan.
anemia of chronic disease---lower than baseline--HGB down to 7.5 on 07/26/24 --(11.6 on 07/20)--pt admitted to vomiting black coffee ground looking material over the Jo holidays...s/p 1 unit pRBC--apprec GI, s/p EGD 07/29/24 with short
segment of Pickard's--retained food in stomach--no other significant findings
History of CAD status post prior coronary stents-continue with aspirin.
Full code
apprec PM&R--insurance denied acute rehab--Dr. Gamino Why appealed and that was denied too--pt wants to appeal again prior to d/c--he wants to go either to [facility] or home--NOT SNF
will need to reach out to Dr. Elder/Dr. Fowler on Sunday, if no better would transfer pt to [place].....
spoke with pt and son (by phone) with LION Lopez as witness re: plan
pt says at home he doesn't eat lunch--Ok with me to do what he does at home--will increase diet to FULLS
Anticipated Discharge: > 48 hours
Subjective/Interval History
-
Date of Service: August 10, 2024
pain improved now with diarrhea
Objective Data
-
Labs:
Laboratory Results
08/10/24
07:24
WBC 8.9
Hgb 9.4 L
Hct 30.3 L
Plt Count 461 H
Sodium 139
Potassium 4.1
Chloride 102
Carbon Dioxide 25
BUN 12
Creatinine 1.4 H
Glucose 137 H
Calcium 8.9
Total Bilirubin 0.9
AST 16 L
ALT 13
Alkaline Phosphatase 120
Vital Signs:
max temp for 24 hours
08/09/24
15:00
Temp 98.3 F
Vital Signs
Temp Pulse Resp BP Pulse Ox
97.6 F 69 18 136/78 96
08/10/24 07:00 08/10/24 07:00 08/10/24 07:00 08/10/24 07:00 08/10/24 08:00
I&O
08/09/24 08/10/24 08/11/24
06:59 06:59 06:59
Intake Total 1520 / 1520 250 / 250 100 / 100
Balance 1520 / 1520 250 / 250 100 / 100
Review of Systems
-
All other systems: Reviewed and negative
Abdomen/GI: Reports Diarrhea; Denies Abdominal Pain
Physical Exam
-
General: Appears Chronically Ill
HEENT: Normocephalic and Atraumatic
Respiratory: Clear to Auscultation; Negative Wheezes or Rhonchi
Cardiac: Regular Rhythm and S1/S2; Negative Murmur
GI: Soft, Nontender and Nondistended; Negative Normal Bowel Sounds (hyperactive)
Musculoskeletal: No Clubbing, No Cyanosis and No Edema
Neuro: Awake
Psych: Calm
[2024-08-10 15:32] VITALS: BP 125/62
[2024-08-10 16:23] LABS: Glucose - Point of Care 132 mg/dl (70-99)
[2024-08-10] MEDS: LOVENOX 30 MG SC (17:09)
[2024-08-10] MEDS: MELATONIN 5 MG PO (20:31)
[2024-08-10 21:28] LABS: Glucose - Point of Care 221 mg/dl (70-99)
[2024-08-10] MEDS: ASPIR LOW (ENTERIC COATED) 81 MG PO (22:09)
[2024-08-10] MEDS: NON-FORMULARY ITEM PO (22:09)
[2024-08-10 23:06] VITALS: BP 128/63
[2024-08-11] MEDS: ZOSYN 50 IV ×3 (01:07→14:13)
[2024-08-11 07:20] VITALS: BP 129/69
[2024-08-11 07:53] LABS: Glucose - Point of Care 131 mg/dl (70-99)
[2024-08-11] MEDS: NOVOLOG FLEXPEN-LOW RESISTANCE SC ×2 (08:02→12:26)
[2024-08-11] MEDS: LIDOCAINE 4% PATCH TOPICAL (08:02)
[2024-08-11] MEDS: LIPITOR 80 MG PO (08:03)
[2024-08-11] MEDS: MIRALAX PO (08:03)
[2024-08-11] MEDS: NORVASC 5 MG PO (08:03)
[2024-08-11] MEDS: PROTONIX 40 MG PO (08:03)
[2024-08-11] MEDS: SOLU-CORTEF 25 MG IV ×3 (08:03→23:08)
[2024-08-11] MEDS: XIFAXAN PO (08:03)
[2024-08-11 11:39] LABS: Glucose - Point of Care 163 mg/dl (70-99)
--- NOTE | 2024-08-11 12:43 | VNURNOTE ---
[facility] Ded[facility], VN services. He confirmed receipt of email of caregiver agencies. He had CM related questions. Nicole Bran notified.
--- NOTE | 2024-08-11 13:13 | CM ---
Addendum entered by Nicole Grace 08/11/24 16:01:
Amarilis to call patient son with resource information.
Original Note:
Patient seen at bedside with physicians. Patient referred to VN and patient son indicated that he needed additional information regarding private pay pt/ot. CM called to Amarilis Falcon at patient son request and requested call back. CM will
continue to follow for discharge planning needs.
Plan; home with VN to follow and possible additional resources.
[2024-08-11] MEDS: NOVOLOG FLEXPEN-LOW RESISTANCE 1 UNITS SC (14:16)
[2024-08-11 15:25] VITALS: BP 109/68
--- NOTE | 2024-08-11 15:56 | W.PN.HOSP.TC ---
Addendum entered and electronically signed by Mora Cerda MD 08/11/24 19:35:
I saw and evaluated the patient independently. I reviewed the resident�s note and agree with findings and plan as documented by Dr. Nelson.
GENERAL: well developed, well nourished, male in no apparent distress
HEENT: NC/AT
HEART: regular rate and rhythm, +S1, +S2
LUNGS : clear to auscultation bilaterally
ABDOM: soft, nontender, nondistended, + bowel sounds
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
NEUROLOGIC: grossly intact
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
Salmonella Shigella, blood cultures negative
recurrent abdominal pain--CT scan 08/08 showed diverticulitis with enteritis--zosyn started, convert to augmentin--restart stress dose steroids (seems to be better), change to 50 mg prednisone and slow taper back to outpt doses-cont IV dilaudid as
needed (difficult because pt needs pain meds BUT has propensity for SBOs)--advance diet to low residue
Syncope--resolved--suspect secondary to dehydration with GI symptoms and symptomatic anemia --s/p 1 unit pRBC--EGD 07/29 with possible Pickard's, no ulcers noted
Fall from syncope--patient had a CT of the head and cervical spine without any acute pathology--Acute burst fracture of X33--Xbodcqu fracture fragment retropulsion, no associated high-grade narrowing of the canal--apprec neurosurgery, TLSO brace
ordered when patient is ambulating/weightbearing-- cont pain control--PT/OT
leukocytosis--WBC started to rise--up to 15.8, back to normal on 08/06/24--OBS series neg on 08/01, 08/07 showed distal SBO/constipation, 08/08 CT scan with diverticulitis and enteritis as above--was on stress dose steroids but back to outpt doses and will
place back on stress dose steroids--will likely need taper back to outpt doses when ready --also with pseudogout--apprec ID--relieved with colchicine
Scleroderma with SIBO--continue with rifaximin. On chronic prednisone--was on stress dose steroids--not tolerating outpt doses--back to stress doses with slow taper
FLORENCE--creat now at baseline--suspect secondary to GI volume losses--resolved--restarted losartan.
anemia of chronic disease---lower than baseline--HGB down to 7.5 on 07/26/24 --(11.6 on 07/20)--pt admitted to vomiting black coffee ground looking material over the holidays...s/p 1 unit pRBC--apprec GI, s/p EGD 07/29/24 with short
segment of Pickrad's--retained food in stomach--no other significant findings
History of CAD status post prior coronary stents-continue with aspirin.
Full code
apprec PM&R--insurance denied acute rehab--Dr. Macias appealed and that was denied too--pt wants to appeal again prior to d/c--he wants to go either to [facility] or home--NOT SNF
will need to reach out to Dr. Elder/Dr. Fowler--pt MUCH improved and wants to go home, walking around the unit
Original Note:
Today's Communication/Plan
-
Switch to PO Augmentin. start oral stress dose steroids tomorrow. c/w Low Residue diet, can advance tomorrow if tolerated. C/w pain medication as needed for back pain
Assessment / Plan
Assessment / Plan
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
#Diverticulitis w/ Enteritis
- Negative for salmonella, shigella, norovirus, Campylobacter. Blood Cx neg.
- CT shows diverticulitis with enteritis.
- Started on IV Zosyn, but having continuing diarrhea. Will change to PO Augmentin 500/125 for total 14d course & start stress dose steroids tomorrow (prednisone 50mg), finish Hydrocortisone through tonight.
- Will likely need slow taper of stress dose steroids on discharge
#SBO secondary to Scleroderma (resolved nonoperatively)
- Tolerated Full Liquid Diet, start on Low residue and re-evaluate in AM
- C/w Rifaxamin for Scleroderma assoc. SIBO
#H/o fall with T12 Burst fracture w/ minimal fragment retropulsion
#Back Pain
- TLSO brace during weightbearing/ambulation per neuro. Patient ambulating well
- Since resuming stress dose steroids patient's pain is much improved.
- C/w IV dilaudid as needed
- Initially recommending acute rehab, application and two appeals were denied. However, patient ambulating well today and would now prefer VN over acute rehab.
#Syncope (resolved)
#Fall
- CT of the head and cervical spine without any acute pathology. T12 burst fracture as above.
- likely secondary to dehydration from diarrhea/symptomatic anemia. EGD neg. for ulceration/source of bleeding (possible Fito's, but Bx shows no metaplasia). S/p 1 unit PRBCs. Stable, asymptomatic at this time. Ambulating well
#Leukocytosis (resolved) - peaked at 15.8. Found to have diverticulitis/enteritis, also on high dose steroids.
#FLORENCE (resolved?) - elevated creatinine, stable around 1.4, near baseline. Will continue to monitor.
#Hypertension - c/w Amlodipine
#H/o CAD, s/p coronary stenting - c/w Atorvastatin
#Anemia of Chronic Disease - had HGB of 7.5, less than baseline. Ad[facility]. S/p 1U pRBC, s/p EGD showing no bleed will continue to monitor
#Pseudogout (resolved) - s/p Colchicine
Diet - Low Residue
DVT PPx - None.
Code Status - Full code
Anticipated Discharge: Within 24 hours
Subjective/Interval History
-
Feeling much better this morning. His back pain is nearly gone, as is his abdominal pain. He is experiencing some painless, nonbloody diarrhea. Denies nausea/vomiting/fevers.
Objective Data
-
Vital Signs:
Vital Signs
Temp Pulse Resp BP Pulse Ox
97.7 F 74 18 109/68 98
08/11/24 15:25 08/11/24 15:25 08/11/24 15:25 08/11/24 15:25 08/11/24 15:25
I&O
08/10/24 08/11/24 08/12/24
06:59 06:59 06:59
Intake Total 250 / 250 970 / 970
Balance 250 / 250 970 / 970
Review of Systems
-
History Source: Patient
Constitutional: Reports No Symptoms
EENT: Reports No Symptoms Reported
Respiratory: Reports No Symptoms
Cardiac: Reports No Symptoms
Abdomen/GI: Reports Diarrhea
Musculoskeletal: Reports No Symptoms
Skin: Reports No Symptoms
Physical Exam
-
General: Well Developed, Well Nourished, No Apparent Distress, Comfortable and Conversant
HEENT: Normocephalic, Atraumatic, Moist Mucous Membranes and PERRLA
Respiratory: Clear to Auscultation and Non Labored Respirations
Cardiac: Regular Rhythm and S1/S2
GI: Soft, Nontender, Nondistended and Normal Bowel Sounds
Musculoskeletal: No Clubbing, No Cyanosis and No Edema
Neuro: Awake, Alert, Oriented, No Motor Deficits and Nonfocal/Grossly Intact
[2024-08-11 16:28] LABS: Glucose - Point of Care 225 mg/dl (70-99)
[2024-08-11] MEDS: NOVOLOG FLEXPEN-LOW RESISTANCE 2 UNITS SC (17:13)
[2024-08-11] MEDS: LOVENOX 30 MG SC (17:13)
[2024-08-11 21:52] LABS: Glucose - Point of Care 210 mg/dl (70-99)
[2024-08-11] MEDS: AUGMENTIN 500 MG/125 MG 1 TABLET PO (21:56)
[2024-08-11] MEDS: ASPIR LOW (ENTERIC COATED) 81 MG PO (21:57)
[2024-08-11] MEDS: NON-FORMULARY ITEM PO (21:57)
[2024-08-11 23:01] VITALS: BP 140/69
--- NOTE | 2024-08-12 06:43 | W.PN.HOSP.TC ---
Addendum entered and electronically signed by Mora Cerda MD 08/12/24 21:46:
I saw and evaluated the patient independently. I reviewed the resident�s note and agree with findings and plan as documented by Dr. Nelson.
GENERAL: well developed, well nourished, male in no apparent distress
HEENT: NC/AT
HEART: regular rate and rhythm, +S1, +S2
LUNGS : clear to auscultation bilaterally
ABDOM: soft, nontender, nondistended, + bowel sounds
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
NEUROLOGIC: grossly intact
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
blood cultures negative
recurrent abdominal pain--CT scan 08/08 showed diverticulitis with enteritis--Zosyn started, converted to Augmentin--Xifaxan on hold while on Augmentin, can restart after course finished--restarted stress dose steroids and now on 50 mg prednisone and
slow taper back to outpt doses
Syncope--resolved--suspect secondary to dehydration with GI symptoms and symptomatic anemia --s/p 1 unit pRBC--EGD 07/29 with possible Pickard's, no ulcers noted
Fall from syncope--patient had a CT of the head and cervical spine without any acute pathology--Acute burst fracture of Z32--Kiabqgx fracture fragment retropulsion, no associated high-grade narrowing of the canal--apprec neurosurgery, TLSO brace
ordered when patient is ambulating/weightbearing-- cont pain control--PT/OT
leukocytosis--resolving--OBS series neg on 08/01, 08/07 showed distal SBO/constipation, 08/08 CT scan with diverticulitis and enteritis as above-- taper prednisone back to outpt doses when ready --also with pseudogout--apprec ID--relieved with colchicine
Scleroderma with SIBO--continue with rifaximin when off abx. On chronic prednisone--was on stress dose steroids--not tolerating outpt doses--back to stress doses with slow taper
FLORENCE--creat now at baseline--suspect secondary to GI volume losses--resolved--restarted losartan.
anemia of chronic disease---lower than baseline--HGB down to 7.5 on 07/26/24 --(11.6 on 07/20)--pt admitted to vomiting black coffee ground looking material over the Jo holidays...s/p 1 unit pRBC--apprec GI, s/p EGD 07/29/24 with short
segment of Pickard's--retained food in stomach--no other significant findings
History of CAD status post prior coronary stents-continue with aspirin.
Full code
spoke with Dr. Jacome--hold Xifaxan while on other abx--increase Motegrity back to daily
OK for d/c home
Original Note:
Today's Communication/Plan
-
OK to d/c with PO Augmentin (can resume Xifaxan after augmentin course finished), Steroid taper (52-29-59-20x7 days each, staying on 10mg until f/u with rheum), home VN for PT.
Assessment / Plan
Assessment / Plan
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
#Diverticulitis w/ Enteritis
- Negative for salmonella, shigella, norovirus, Campylobacter. Blood Cx neg.
- CT shows diverticulitis with enteritis.
- Started on IV Zosyn, but having continuing diarrhea. On PO Augmentin 500/125 for total 14d course & continue stress dose steroid dosing (prednisone 50mg)
- D/c on slow steroid taper from 50mg (42-06-79-20x7 days each, staying on 10mg) + Augmentin
#SBO secondary to Scleroderma (resolved nonoperatively)
- LRD giving patient constipation. Found out patient switched from Motegrity QD to every other day. Will continue QD on discharge. OK to start Xifaxan after completing Abx course as outpatient.
#H/o fall with T12 Burst fracture w/ minimal fragment retropulsion
#Back Pain
- TLSO brace during weightbearing/ambulation per neuro. Patient ambulating well
- Since resuming stress dose steroids patient's pain is much improved.
- has not needed pain medication since upping stress dose steroids. No need to pain meds on discharge. Will continue with home VN for physical therapy
#Syncope (resolved)
#Fall
- CT of the head and cervical spine without any acute pathology. T12 burst fracture as above.
- likely secondary to dehydration from diarrhea/symptomatic anemia. EGD neg. for ulceration/source of bleeding (possible Fito's visually, but Bx shows no metaplasia). S/p 1 unit PRBCs. Stable, asymptomatic at this time. Ambulating well
#Leukocytosis (resolved) - peaked at 15.8. Found to have diverticulitis/enteritis, also on high dose steroids.
#FLORENCE (resolved?) - elevated creatinine, stable back to 1.3, near baseline
#Hypertension - c/w Amlodipine
#H/o CAD, s/p coronary stenting - c/w Atorvastatin
#Anemia of Chronic Disease - had HGB of 7.5, less than baseline. Admitted to [facility] over holiday. S/p 1U pRBC, s/p EGD showing no bleed will continue to monitor
#Pseudogout (resolved) - s/p Colchicine
Diet - Low Residue
DVT PPx - None.
Code Status - Full code
Anticipated Discharge: Today
Subjective/Interval History
-
Tolerating low residue diet well. Diarrhea resolved on LRD, but now he is feeling constipated. No N/V/Fevers or abdominal pain. He is feeling well otherwise.
Objective Data
-
Labs:
Laboratory Results
08/12/24
06:00
WBC Pending
Hgb Pending
Hct Pending
Plt Count Pending
Sodium Pending
Potassium Pending
Chloride Pending
Carbon Dioxide Pending
BUN Pending
Creatinine Pending
Glucose Pending
Calcium Pending
Total Bilirubin Pending
AST Pending
ALT Pending
Alkaline Phosphatase Pending
Vital Signs:
Vital Signs
Temp Pulse Resp BP Pulse Ox
98.0 F 68 18 140/69 98
08/11/24 23:01 08/11/24 23:01 08/11/24 23:01 08/11/24 23:01 08/11/24 23:01
I&O
08/10/24 08/11/24 08/12/24
06:59 06:59 06:59
Intake Total 250 / 250 970 / 970 1380 / 1380
Balance 250 / 250 970 / 970 1380 / 1380
Review of Systems
-
History Source: Patient
Constitutional: Reports No Symptoms
EENT: Reports No Symptoms Reported
Respiratory: Reports No Symptoms
Cardiac: Reports No Symptoms
Abdomen/GI: Reports Constipated
Genitourinary: Reports No Symptoms
Musculoskeletal: Reports No Symptoms
Skin: Reports No Symptoms
Neuro: Reports No Symptoms
Physical Exam
-
General: Well Developed, Well Nourished, No Apparent Distress and Comfortable
HEENT: Normocephalic, Atraumatic, Moist Mucous Membranes and PERRLA
Respiratory: Clear to Auscultation
Cardiac: Regular Rhythm and S1/S2
GI: Soft, Nontender and Nondistended
Musculoskeletal: No Clubbing, No Cyanosis and No Edema
Neuro: Awake, Alert and Oriented
[2024-08-12 07:42] VITALS: BP 145/79
[2024-08-12 07:47] LABS: Glucose - Point of Care 123 mg/dl (70-99)
[2024-08-12] MEDS: NOVOLOG FLEXPEN-LOW RESISTANCE SC ×2 (07:59→12:02)
[2024-08-12 08:00] LABS: % Basophils 0.5 % (0-2); % Eosinophils 0.4 % (0-6); % Immature Granulocytes 0.4 % (0-0.5); % Lymphocytes 17.9 % (20.5-51.1); % Monocytes 9.5 % (1.7-9.3); % Neutrophils 71.3 % (42.2-75.2); Absolute Basophils 0.1 10^3/uL (0-0.2); Absolute Lymphocytes 1.8 10^3/uL (1.2-3.4); Absolute Neutrophils 7.2 10^3/uL (1.4-6.5); Hematocrit 30.9 % (39.0-52.0); Hemoglobin 9.7 g/dL (13.0-18.0); Mean Corp Hgb Conc. 31.4 g/dL (33.0-37.0); Mean Corpuscular Hgb 24.8 pg (27.0-31.0); Mean Platelet Volume 8.9 fL (7.4-10.4); Nucleated Red Blood Cells % 0 % (-); Platelet Count 422 10^3/uL (130-400); Red Blood Cell Count 3.91 10^6/uL (4.70-6.10); Red Cell Dist. Width 16.6 % (11.5-14.5); White Blood Cell Count 10.2 10^3/uL (4.8-10.8)
[2024-08-12] MEDS: LIDOCAINE 4% PATCH TOPICAL ×2 (08:13→08:18)
[2024-08-12] MEDS: AUGMENTIN 500 MG/125 MG 1 TABLET PO (08:14)
[2024-08-12] MEDS: VISBIOME 1 CAP PO (08:14)
[2024-08-12] MEDS: XIFAXAN 275 MG PO (08:14)
[2024-08-12] MEDS: NORVASC 5 MG PO (08:14)
[2024-08-12] MEDS: PROTONIX 40 MG PO (08:14)
[2024-08-12] MEDS: LIPITOR 80 MG PO (08:15)
[2024-08-12] MEDS: MIRALAX 17 GRAMS PO (08:15)
[2024-08-12] MEDS: DELTASONE 50 MG PO (08:15)
[2024-08-12 08:41] LABS: ALT (SGPT) 14 U/L (0-50); AST (SGOT) 16 U/L (17-59); Albumin 3.8 g/dl (3.5-5.0); Alkaline Phosphatase 114 U/L (38-126); Blood Urea Nitrogen 21 mg/dl (9-20); Calcium 9.2 mg/dl (8.4-10.2); Carbon Dioxide 23 mmol/L (22-30); Chloride 103 mmol/L (98-107); Estimated Creatinine Clearance 51 ml/min; Glucose 118 mg/dl (70-99); Potassium 3.9 mmol/L (3.5-5.1); Sodium 139 mmol/L (135-145); Total Bilirubin 0.6 mg/dl (0.2-1.3); Total Protein 6.2 g/dl (6.3-8.2); eGFR 58.01
[2024-08-12 09:37] VITALS: BP 128/80; PULSE 97; O2SAT 98
[2024-08-12 11:33] LABS: Glucose - Point of Care 158 mg/dl (70-99)
--- NOTE | 2024-08-12 15:35 | CM ---
Patient seen at bedside. Patient for discharge home with [facility] to follow. Patient son aware and Patient completed IMM form. Form placed on chart. Patient family to transport home after 4:30pm. CM will continue to follow for discharge planning needs.
Plan; home with [facility]
[2024-08-12 15:43] VITALS: BP 146/75
[2024-08-12 16:50] LABS: Glucose - Point of Care 193 mg/dl (70-99)
[2024-08-12] MEDS: NOVOLOG FLEXPEN-LOW RESISTANCE 1 UNITS SC (16:50)
--- NOTE | 2024-08-13 19:55 | W.DCSUMMARY ---
Addendum entered and electronically signed by Mora Cerda MD 08/14/24 07:15:
Read, reviewed, and agree. See same day progress note for additional details. Time spent coordinating care, DC planning, review of DC plan of care with resident, transition of care, review of records in EMR, med rec, consults, notes, d/w
consultants, nursing, family, and CM = 45 minutes
I spoke with his payment poster, Dr. Travon Jacome, regarding his hospital course and plan. He was in agreement with this plan.
In addition, after multiple attempts by CM, including a peer to peer appeal by Dr. Macias ([employer]), insurance ultimately denied coverage for acute rehab. Pt was indeed discharged to home in stable condition.
Original Note:
Discharge Summary
Discharge Data
Date of Admission: 07/24/24
Date of Discharge: 08/12/24
Total time spent discharging patient (in min): 45
-
Pending Results: No
Hospital Course
Discharging Physician : Dr. Sunny Nelson, Dr. Mora Cerda
Disposition : Home
Primary care physician : Dr. Jacome
Principal Discharge diagnosis : Diverticulitis with enteritis, SBO likely secondary to underlying scleroderma, syncope, fall from syncope, T12 burst fracture, leukocytosis, FLORENCE, anemia of chronic disease, right knee pain possibly secondary to
pseudogout
Chronic Discharge diagnosis : scleroderma with SIBO
Hospital Course :
Abdiaziz Wing is a 74-year-old man who initially presented to the [facility] emergency department with complaints of vomiting nausea lightheadedness, fall from syncope and new onset low back pain. Initial imaging revealed small bowel
obstruction, acute burst fracture of T12 and above with minimal fracture fragment retropulsion (report below). CT head without IV contrast and CT cervical spine were without evidence of acute traumatic injury. He was kept n.p.o., started on IV
fluids, and surgery was consulted for small bowel obstruction likely secondary to underlying scleroderma. Infectious workup was done which was negative. His back pain was managed with IV pain medication for T12 burst fracture. Neurosurgery was
consulted and a TLSO brace was ordered during ambulation and weightbearing. Initial blood work also revealed an FLORENCE likely secondary to GI volume losses from nausea and vomiting.
His small bowel obstruction was managed nonoperatively with IV fluids, IV pain medication and diet advancement as tolerated and resolved. While awaiting resolution of SBO patient had fever overnight for which blood cultures were drawn which showed
no growth.
Patient had worsening of baseline anemia of chronic disease requiring 1 unit of PRBCs with improvement of hemoglobin. In the setting of patient's acutely worsening anemia combined with admitted history of coffee-ground emesis prior to admission EGD
was done showing no active bleed. A short segment of possible Pickard's esophagus was observed (report below), however this was ruled out by subsequent biopsy which showed no goblet cell metaplasia.
His FLORENCE was managed with IV fluids and cessation of nephrotoxic drugs (losartan).
For his chronic coronary artery disease he was continued on home dose aspirin.
He was given an initial course of stress dose steroids which lasted 8 days. After which he was maintained on his home dose of steroids.
On hospital day 9 he was evaluated by PMNR who recommended he be discharged to an acute inpatient facility for rehabilitation and strengthening. For the next few days he was stable while attempts were made for insurance to approve discharge to
acute rehab facility. During this time he also had a flare of right knee pain and swelling thought to be pseudogout which was treated with colchicine and resolved.
On hospital day 15 he developed new severe abdominal pain which was different from prior for which a CT abdomen and pelvis was ordered revealing acute uncomplicated diverticulitis and enteritis (report below). For this the patient was treated with
IV Zosyn and resumed on stress dose steroids and given IV Dilaudid as needed for pain. On hospital day 18 he developed diarrhea that was bloodless and painless thought to be due to to IV antibiotics, though at this time he reports marked
improvement in pain while on stress dose steroids. He was reevaluated at this time by PT OT and was feeling much stronger than before. He was then transition to oral Augmentin for a 14-day course and began on a low residue diet. While on IV
antibiotics his Xifaxan was held to prevent worsening diarrhea. After shared decision making with the family and patient, decision was made for patient to return home at discharge with follow-up outpatient for physical therapy. He was discharged
on oral Augmentin and a very slow prednisone taper to last 28 days after will remain on 10 mg prednisone until his follow-up with rheumatology. He is okay to resume Xifaxan after finishing Augmentin.
He was discharged on hospital day 20 to home.
Important imaging findings :
CT cervical spine without contrast
No acute fracture or malalignment identified.
CT Head W/o Iv Contrast
1). There is no evidence of acute traumatic injury
2). There is old 4 mm lacunar infarct in the head of the caudate on the left
3).There is focal 4 x 2 cm CSF prominence over the left posterior parietal region which I favor is arachnoid cyst rather than volume loss as the underlying cortex appears intact
4). There is mild diffuse cortical and cerebellar atrophy
CT Abd/pel Without Iv Or Oral
1. Acute burst fracture of T12 as above. Minimal fracture fragment retropulsion, no associated high-grade narrowing of the canal.
2. Small bowel obstruction with transition in the right lower quadrant as detailed above.
3. Atherosclerotic changes with severe coronary artery calcification.
4. Diffuse mild wall thickening of the urinary bladder as above. This may be related to underdistention, cystitis is a consideration.
CR Chest Portable - 1 View
Low lung volumes with bibasilar atelectasis.
CR Abdomen - 1 View
No significantly dilated air-filled loops of bowel are identified. Multiple small calcifications in the medial aspect of the right quadrant, corresponding to pancreatic calcifications on CT scan, likely from chronic pancreatitis. Compression
deformity of T12 vertebral body. Correlating with recent CT of the abdomen and pelvis, this appears to be acute to subacute, new since examination of May 23, 2024.
CR Obstruct Series W/pa Chest
1. Mild air distention of small bowel loops in the right side of the midabdomen.
2. No radiographic evidence for pneumoperitoneum or colonic distention.
3. Previous cholecystectomy.
4. Chronic pancreatitis.
5. Mild inflammatory interstitial pneumonitis and scarring in the lower lobes of both lungs.
CR Knee - Right 1 Or 2 Views
No acute abnormalities. Degenerative osteoarthritis with mild joint space narrowing and degenerative spurring of the patellofemoral joint. Patellar osteophyte.
CR Obstruct Series W/pa Chest
No active cardiopulmonary disease.
There is a large amount of gas in multiple loops of mildly dilated small bowel measuring up to 4 cm in a pattern suggesting distal small bowel obstruction.
There is moderate-large amount of feces in the nondilated colon suggesting possible constipation.
CR Abdomen - 1 View
Increased reticulonodular markings within both lower lungs, similar to previous exams, and likely interstitial fibrosis.
No significantly dilated air-filled loops of bowel.
The amount of stool within the colon appears to be within normal limits.
CT Abd/pel (oral only)
1. Acute uncomplicated diverticulitis of the distal descending colon.
2. Enteritis involving a small bowel segment in the low central abdomen.
3. Stable cystitis versus underdistention.
Important procedure findings :
Upper GI endoscopy
- Normal proximal esophagus.
- Small amount of retained fluid in the mid esophagus, suctioned and cleared.
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 C0-M1 per [place] criteria. Biopsied.
- Otherwise, normal esophagus without any evidence of esophagitis, jimy-resendez tears or ulcerations
- Multiple, benign appearing gastric polyps. Endoscopically, consistent with benign fundic gland polyps and left intact as all were less than 1 cm
- A small amount of food (residue) in the gastric antrum
- Otherwise, normal stomach on direct and retroflexion views
- Small amount of retained food/residue in the examined duodenum up to the third portion
- The examination was otherwise normal.
Discharge Plan
-
Patient Disposition: Home with Home Care
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
Anemia(resolved)
FLORENCE(resolved)
Condition: Fair
Diet: Low Residue
Activity: As tolerated
Driving Restrictions: As prior to admission
Bathing Restrictions: OK to Shower
Referrals:
Luiz Jacome MD [Non-Admitting Privileges] - (will need follow up in 2 months)
Jag Fowler MD [Active] - (call for appointment--hospital follow up)
Tamara Bell MD [Family Provider] - in less than 1 week
Additional Discharge Medication Instructions: Follow steroid taper until you get to 10 mg daily. Stay on that until you see Dr. Fowler in follow up.
Hold the Xifaxan until you finish the antibiotic.
Take Motegrity once a day.
Continue with Amlodipine 5mg
Prescriptions:
New
prednisone 10 mg Tablet
See Rx Instructions .ROUTE .COMPLEX Qty: 120 0RF
Rx Instructions:
Take By Mouth:
50 mg daily x7 days, 40 mg daily x7 days,
30 mg daily x7 days, 20 mg daily x7 days,
stay on 10mg afterwards
prucalopride [Motegrity] 2 mg tablet
2 mg PO DAILY Qty: 30 2RF
amlodipine 5 mg Tablet
5 mg PO DAILY Qty: 30 0RF
amoxicillin-pot clavulanate 500-125 mg Tablet
1 tab PO Q12 5 Days Qty: 10 0RF
Continued
aspirin 81 MG tablet,delayed release (DR/EC)
81 mg PO HS
atorvastatin 80 MG tablet
80 mg PO DAILY
prednisone 5 mg Tablet
5 mg PO DAILY
glimepiride 2 mg Tablet
2 mg PO DAILY
pyridostigmine bromide 60 mg tablet
30 mg PO BID
Xifaxan 550 mg tablet
225 mg PO DAILY
Motegrity 2 mg tablet
2 mg PO HS
pantoprazole [Protonix] 40 mg tablet,delayed release (DR/EC)
40 mg PO DAILY
Rx Instructions:
as before -not a new medication
ondansetron 4 mg tablet,disintegrating
4 mg PO Q8H PRN (Reason: nausea and vomiting) Qty: 10 0RF
Discontinued
losartan 50 MG tablet
50 mg PO HS
nifedipine 30 MG tablet extended release
30 mg PO HS
Discharge Orders:
Discharge Patient (As Directed); Ordered 08/12/24
Ordered By: Sunny Nelson
Discharge Date and Time
Discharge Date/Time: 08/12/24 18:26
Print Language: KISWAHILI
== END 2024-08-12 18:26 | disposition home health service (06) | DRG 552 ==
LOC: 4 WEST ACU 12:45
PROVIDERS: Internal Medicine; Nurse Practitioner; Nurse Practitioner Family; Student in an Organized Health Care Education/Training Program; ADMITTING PHYSICIAN Internal Medicine; ATTENDING PHYSICIAN Internal Medicine; CONSULT PHYSICIAN Internal Medicine Gastroenterology; CONSULT PHYSICIAN Physical Medicine & Rehabilitation; CONSULT PHYSICIAN Student in an Organized Health Care Education/Training Program; CONSULT PHYSICIAN Surgery; EMERGENCY PHYSICIAN Emergency Medicine; FAMILY PHYSICIAN Family Medicine; OTHER PHYSICIAN Neurological Surgery
PROC: 30233N1 Transfusion of Nonautologous Red Blood Cells into Peripheral Vein, Percutaneous Approach (ICD-10-PCS; 2024-07-26)
PROC: 0DB58ZX Excision of Esophagus, Via Natural or Artificial Opening Endoscopic, Diagnostic (ICD-10-PCS; 2024-07-29)
DX: S22.081A Stable burst fracture of T11-T12 vertebra, initial encounter for closed fracture (principal); N17.9 Acute kidney failure, unspecified; D62 Acute posthemorrhagic anemia; K92.0 Hematemesis; K56.690 Other partial intestinal obstruction; E11.9 Type 2 diabetes mellitus without complications; I10 Essential (primary) hypertension; I25.10 Atherosclerotic heart disease of native coronary artery without angina pectoris; E78.00 Pure hypercholesterolemia, unspecified; E86.0 Dehydration; M34.9 Systemic sclerosis, unspecified; K22.70 Barrett's esophagus without dysplasia; K31.7 Polyp of stomach and duodenum; K63.8219 Small intestinal bacterial overgrowth, unspecified; J84.10 Pulmonary fibrosis, unspecified; M11.261 Other chondrocalcinosis, right knee; K57.30 Diverticulosis of large intestine without perforation or abscess without bleeding; F03.90 Unspecified dementia, unspecified severity, without behavioral disturbance, psychotic disturbance, mood disturbance, and anxiety; G89.29 Other chronic pain; W18.2XXA Fall in (into) shower or empty bathtub, initial encounter; I25.2 Old myocardial infarction; Z95.5 Presence of coronary angioplasty implant and graft; Z90.49 Acquired absence of other specified parts of digestive tract; Z79.82 Long term (current) use of aspirin; Z79.84 Long term (current) use of oral hypoglycemic drugs; Z79.52 Long term (current) use of systemic steroids; Z79.899 Other long term (current) drug therapy; Z11.52 Encounter for screening for COVID-19
CPT/HCPCS: 88305; 70450; 71045; 72125; 73560; 74018; 74022; 74176; 80048; 80053; 81003; 82728; 82962; 83036; 83540; 83550; 83735; 85025; 85027; 85652; 86140; 86850; 86900; 86901; 86920; 87040; 87045; 87046; 87077; 87427; 87502; 87798; 87811; 89055; 93005; 96361; 96374; 96375; 96376; 97116; 97163; 97166; 97530; 97535; 99285; P9016

== ENCOUNTER 2024-08-16 22:50 | Inpatient (IN) | payer OTHER, MEDICARE, SELFPAY ==
[2024-08-16] VITALS (10 sets, daily range): BP systolic 130–164; BP diastolic 64–92; BMI 23.7
--- NOTE | 2024-08-16 14:45 | ED.GENMED ---
History of Present Illness
General
Chief Complaint: Breathing Problem
Source: patient, records and family
Time Seen by Provider: 08/16/24 14:28
History of Present Illness
History of Present Illness:
This patient is a 74-year-old male presents emergency department after being discharged just a few days ago after suffering a T12 burst fracture, SBO, diverticulitis. He is currently on antibiotics. He was doing relatively well until yesterday
when he said he started to feel 'sick all over' associated with diarrhea without blood or black stool. This continued throughout the night. He states that yesterday he also felt like his back was numb from the mid to the lower portion of his back.
This has since resolved. He also is reporting that his toes hurt him bilaterally. This morning, his son came at around 730 to take him to get a haircut. He states that since this morning he is having these discrete episodes where he feels like
he cannot breathe lasting a minute or so at a time not associated with diaphoresis, chest pain, cough, sore throat, rhinorrhea, neck pain. He does report recent chills but no fever. He also continues to have a momentary lightheadedness but no
syncope. Patient is typically able to walk on his own but family states that he has had difficulty walking unassisted today and needs assistance. Patient states that he did have an episode of fecal incontinence today, and that he 'could not feel'
his stool coming out.
Past History
Past History
ED Past Medical History: CAD, GERD, HTN, Hypercholesterolemia, NIDDM, [place] and Other (scleroderma, SBO,, PNA, Pulmonary fibrosis, Gastroporesis)
ED Past Surgical History: Cardiac (Stents X 6) and Cholecystectomy
Social History
Tobacco: Non-smoker
Alcohol: None
Drug: None
Personal:
Living: with family
Employment: Retired
Family History
Family History: CAD
Phy Exam
Physical Exam
Physical Exam:
GENERAL: Alert , appears intermittently uncomfortable
EYE: pupils equal and reactive
NECK: Supple, no significant adenopathy.
ENT: o/p clr, mmm.
CARDIAC: Regular rate and rhythm .
LUNGS: Clear breath sounds bilaterally, no acute respiratory distress, no wheezes/rales/rhonchi
ABDOMEN: Soft, without focal tenderness, no r/g
NEUROLOGICAL: Alert and oriented, no focal neuro deficits, nl reflexes, no clonus, motor 5/5, sens itnact, 2+ patellar reflex.
SKIN: Warm and dry, skin intact. toes 2/3 on R and 2nd on L sl pale/discolored, 2+ dp pulses via dopple
MUSCULOSKELETAL: No edema, well perfused.
PSYCH: Normal and appropriate interaction.
Rectal: Sarah SEYMOUR present, rectal tone nl, sens intact
BACK: ttp T12 area, otherwise no skin findings or ttp
Scores
Heart Failure Risk
Heart Failure Risk Score: Not Applicable
Course
Orders/Labs/Results
Orders:
Orders
08/16/24 14:19
Electrocardiogram (*1) Urgent
Reason for Study: Shortness of Breath
EKG- Treatment ONCE
08/16/24 14:56
Cardiac Monitoring- Treatment ONCE
EKG- Treatment ONCE
C DIFF [C difficile Antigen & Toxins] Urgent
SEBAS Source: Feces/Stool
Specimen Description:
Stool Culture Urgent
SEBAS Source: Feces/Stool
Specimen Description:
diazePAM [Valium Injection] 2 mg IV NOW STA
Pulse Ox/cont/shift [RESP] Urgent
Quantity: 1
08/16/24 15:10
MR Lumbar Without Contrast Urgent
Comment:
Reason For Exam: numbness, fecal incont
OK for patient to be off Cardiac Monitoring for MRI: Yes
Recent pill cam endoscopy?: No
MR Thoracic Spine Without Urgent
Comment:
Reason For Exam: fecal incont, numbness (attn T9-T12)
Recent pill cam endoscopy?: No
08/16/24 15:19
COVID-19 Antigen Urgent
Source: Nasal Swab
Complete Blood Count/With Diff Urgent
Comprehensive Metabolic Panel Urgent
Lactic Acid Q4H
Comment: CANCEL 2nd LACTIC ACID IF 1st LACTIC ACID IS LESS THAN 2
Prothrombin Time Urgent
Troponin I Urgent
Blood Culture Q30M
SEBAS Source: Blood/Venous
Specimen Description:
Blood Culture Q30M
SEBAS Source: Blood/Venous
Specimen Description:
Influenza A+B Rapid Molecular Urgent
SEBAS Source: Nasal Swab
Specimen Description:
08/16/24 17:05
0.9% Sodium Chloride 500 ml [Nss] 500 ml IV BOLUS
diazePAM [Valium Injection] 2 mg IV NOW STA
CR Chest - 2 Views Urgent
Comment:
Reason For Exam: sob
08/16/24 18:34
Urinalysis Reflex To Culture Urgent
Date Specimen was Collected: 08/16/24
Time Specimen was Collected: 18:31
08/16/24 18:54
Lactic Acid Q4H
Comment: CANCEL 2nd LACTIC ACID IF 1st LACTIC ACID IS LESS THAN 2
08/16/24 21:03
HYDROmorphone [Dilaudid] 1 mg IV NOW STA
Iohexol [Omnipaque] See Protocol PO NOW STA
Ondansetron Injectable [Zofran] 4 mg IV NOW STA
08/16/24 21:04
CT Abd/pel W Iv And Oral Contr Urgent
Comment:
Reason For Exam: hx diverticulitis, now with pain
08/16/24 22:40
Admit/Transfer Patient As Directed
Co-Sign Provider:
Level of Care: Inpatient admission
Assign to:: Medical/Surgical
Physician / Group: Hospitalist
Diagnosis: Thoracic numbness and diarrhea
Reason for Hospitalization: Thoracic numbness and diarrhea
Expected length of stay greater than two midnights?: Yes
ELOS- Estimated Length of Stay in days: 3
I certify the patient meets the requirements for IP care: Yes
08/16/24 22:41
PRN Pain Medication Management As Directed
May give lesser potent ordered pain med per pt: Yes
preference::
Protocol:: Medication orders for pain may be administered in a
manner that supports deferring to patient preference
when the pt is:
- Requesting an ordered lesser potent pain medication.
Least to most potent pain medications are defined
as: acetaminophen < NSAID < tramadol < opioids
(morphine, oxycodone, hydromorphone).
- Requesting a lesser dose of the same medication IF
ORDERED.
- Requesting a less intrusive route of administration
if both routes are prescribed by the provider (PO <
IV).
08/16/24 22:42
Code Status As Directed
Resuscitation Status: Full Code
08/16/24 23:52
0.9% Sodium Chloride 1000 ml [Nss] 1,000 ml IV 100 mls/hr
Amoxicillin 500 mg/Clav 125 mg [Augmentin 500 mg/125 mg] 1 tablet PO Q12
Bisacodyl [Dulcolax] 10 mg RECTAL [id number] PRN
Docusate W/Senna [Senokot-S] 1 tablet PO BIDPRN PRN
HYDROmorphone [Dilaudid] 0.5 mg IV Q4HPRN PRN
Ondansetron Injectable [Zofran] 4 mg IV Q6HPRN PRN
Ondansetron Orally Disint [Zofran Odt (Orally Disintegrating)] 4 mg PO Q8HPRN PRN
Polyethylene Glycol Powder [Miralax] 17 grams PO DAILYPRN PRN
08/16/24 23:52
STOOL [C difficile Antigen & Toxins] Routine
SEBAS Source: Feces/Stool
Specimen Description:
Stool Culture Routine
SEBAS Source: Feces/Stool
Specimen Description:
Stool For WBC Routine
SEBAS Source: Feces/Stool
Specimen Description:
Activity As Directed
Activity Level: With Assistance
Pneumatic Compression Sleeves As Directed
Type: Knee high
Vital Signs As Directed
Frequency: Per unit guidelines
DX Deep Vein Thrombosis Video Routine
08/17/24 05:46
Complete Blood Count/No Diff IN AM
Comprehensive Metabolic Panel IN AM
TSH IN AM
08/17/24 Breakfast
Regular
At Your Request: Full Participation
08/17/24 08:00
Amlodipine [Norvasc] 5 mg PO DAILY
Atorvastatin [Lipitor] 80 mg PO DAILY
Glimepiride [Amaryl] 2 mg PO DAILY
Pantoprazole [Protonix] 40 mg PO DAILY
Prednisone [Deltasone] 10 mg PO DAILY
Pyridostigmine [Mestinon] 30 mg PO BID
prucalopride [Motegrity] See Dose Instructions PO DAILY
08/17/24 22:00
Aspirin Low Dose EC [Aspir Low (Enteric Coated)] 81 mg PO HS
Abnormal Lab Results
08/16/24
15:19
WBC 17.8 H 10^3/uL
(4.8-10.8)
RBC 4.31 L 10^6/uL
(4.70-6.10)
Hgb 10.9 L g/dL
(13.0-18.0)
Hct 34.8 L %
(39.0-52.0)
MCH 25.3 L pg
(27.0-31.0)
MCHC 31.3 L g/dL
(33.0-37.0)
RDW 16.9 H %
(11.5-14.5)
Plt Count 405 H 10^3/uL
(130-400)
Abs Immat Gran (auto) 0.1 H 10^3/uL
(0-0.05)
Absolute Neuts (auto) 15.7 H 10^3/uL
(1.4-6.5)
Absolute Lymphs (auto) 0.8 L 10^3/uL
(1.2-3.4)
Absolute Monos (auto) 1.0 H 10^3/uL
(0.1-0.6)
Immature Gran % 0.6 H %
(0-0.5)
Neutrophils % 88.4 H %
(42.2-75.2)
Lymphocytes % 4.7 L %
(20.5-51.1)
Carbon Dioxide 20 L mmol/L
(22-30)
BUN 24 H mg/dl
(9-20)
Glucose 131 H mg/dl
(70-99)
Lactic Acid 2.8 H mmol/L
(0.7-2.0)
Alkaline Phosphatase 133 H U/L
(38-126)
08/16/24 15:19
08/16/24 15:19
Vital Signs
Initial and Last Documented VS:
Initial Vital Signs
Temp Pulse Resp BP Pulse Ox
98.1 F 71 20 164/88 85
08/16/24 14:09 08/16/24 14:09 08/16/24 14:09 08/16/24 14:09 08/16/24 14:09
Last Documented Vital Signs
Temp Pulse Resp BP Pulse Ox
98.1 F 75 16 169/82 100
08/17/24 07:45 08/17/24 08:35 08/17/24 07:45 08/17/24 08:35 08/17/24 07:45
*Critical Care Note
Total Time (30-74mins, 75-104mins- exclusive of procedures): 30
Update Note
Update Note:
Patient presents to the Emergency Department with ___diarrhea, fecal incontinence, dyspnea, etc. etc.
Number and Complexity of Problems Addressed at the Encounter
� Chronic conditions affecting care:
� Acute Exacerbation and/or Progression of Chronic Illness:
� Differential Diagnosis includes: But not limited to C. difficile colitis, cauda equina, etc. etc.
Amount and/or Complexity of Data to be Reviewed and Analyzed
� I performed an independent evaluation of and my interpretation is:
EKG:Read by me, normal sinus rhythm, normal rate, normal axis, no acute ischemia
CT:
Xrays:Read by me, NAD
Laboratory Studies:Leukocytosis� In review of records patient has had this in the past but his most recent white blood cell count was within normal limits and that was while he was on steroids, making it less likely that this
leukocytosis noted is related to his steroids. Patient also has a lactic acid elevation.
Other:mri There is approximately 80% subacute compression fracture involving the superior and inferior endplates of T12, similar to that seen on the 08/08/2024 CT examination with 2 mm extension of the posterior body of T12 into
the anterior aspect of the spinal canal. There is no associated impingement upon the conus medullaris which terminates at T12
� Review of other/old records reveals: see below
� Clinical information was obtained by an independent historian: Discharge summary reviewed patient suffered a T12 burst fracture, also noted to have an SBO, diverticulitis., both sons at bedside offer valuable information
� Prescriptions/Medications Considered but not given:
� Further testing considered but not performed:
Risk of Complications and/or Morbidity or Mortality of Patient Management
� Social determinants of health affecting care:
� Discussion with other providers (PCP, Hospitalists, Consultants, etc):
� Escalation of care including admission/observation vs risk of discharge considered:Pulse ox was recorded as 85% on presentation however he has not had any episodes of hypoxia here on room air without respiratory distress, lung
sound abnormalities, etc. He was describing these episodes where he feels like he is short of breath and at that time he would also complain of feeling lightheaded and appeared very anxious� And this would pass within 30 seconds or so. Highly
doubt PE as patient does not have persistent dyspnea, leg swelling, pleuritic chest pain, etc. Patient denies numbness, MRI not consistent with spinal cord impingement/cauda equina or other acute abnormalities. He reports back pain that has
returned as well as abdominal discomfort that is very similar to when he was in the hospital. Of note, patient was diagnosed with diverticulitis at that time and is continuing antibiotics. I will get a repeat CAT scan today to confirm no
progression or new disease given his complaints of pain.
Of note, patient was discharged on steroids. He took the prescribed amount of 50 mg on the day of discharge but then accelerated his taper such that he is taken 20 mg the last few days, and down to 10 mg today. Patient does not appear to be in
adrenal crisis.
Pt had cultures drawn...tiger text sent to hospitalist for admission, continue dpain meds, ivf, observation, etc
ED Attending Note
-
Portions of this chart may have been created with voice recognition software.� Occasional wrong word or��sound alike� substitutions may have occurred due to the inherent limitations of voice recognition software.
Discharge Plan
Departure
Patient Disposition: Admit
Date of Disposition: 08/16/24
Time of Disposition: 22:34
Presentation/result/management discussed w/ accepting MD/DO: Hospitalist
Condition: Fair
Discharge Problem:
Back pain
Interventions
Interventions:
*Risk Screen - Suicide Last Done: 08/16/24 15:44
*General Assessment Last Done: 08/16/24 15:44
*Neglect/Abuse Screening Last Done: 08/16/24 15:44
*ED COVID-19 Vaccine History Last Done: 08/16/24 16:29
ED- Cardiac Assessment Last Done: 08/16/24 14:29
ED- Pulmonary Assessment Last Done: 08/16/24 15:43
[2024-08-16] MEDS: VALIUM INJECTION 2 MG IV ×2 (15:10→17:13)
[2024-08-16 15:36] LABS: % Basophils 0.2 % (0-2); % Eosinophils 0.5 % (0-6); % Immature Granulocytes 0.6 % (0-0.5); % Lymphocytes 4.7 % (20.5-51.1); % Monocytes 5.6 % (1.7-9.3); % Neutrophils 88.4 % (42.2-75.2); Absolute Eosinophils 0.1 10^3/uL (0-0.7); Absolute Immature Granulocytes 0.1 10^3/uL (0-0.05); Absolute Lymphocytes 0.8 10^3/uL (1.2-3.4); Absolute Neutrophils 15.7 10^3/uL (1.4-6.5); Hematocrit 34.8 % (39.0-52.0); Hemoglobin 10.9 g/dL (13.0-18.0); Mean Corp Hgb Conc. 31.3 g/dL (33.0-37.0); Mean Corpuscular Hgb 25.3 pg (27.0-31.0); Mean Corpuscular Volume 80.7 fL (80.0-94.0); Nucleated Red Blood Cells % 0 % (-); Platelet Count 405 10^3/uL (130-400); Red Blood Cell Count 4.31 10^6/uL (4.70-6.10); Red Cell Dist. Width 16.9 % (11.5-14.5); White Blood Cell Count 17.8 10^3/uL (4.8-10.8)
[2024-08-16 15:47] LABS: INR 1.09; PT 14.4 Sec (11.4-14.6)
[2024-08-16 15:48] LABS: Lactic Acid 2.8 mmol/L (0.7-2.0)
[2024-08-16 15:50] LABS: ALT (SGPT) 23 U/L (0-50); AST (SGOT) 20 U/L (17-59); Albumin 4.4 g/dl (3.5-5.0); Alkaline Phosphatase 133 U/L (38-126); Blood Urea Nitrogen 24 mg/dl (9-20); Calcium 9.1 mg/dl (8.4-10.2); Carbon Dioxide 20 mmol/L (22-30); Chloride 105 mmol/L (98-107); Glucose 131 mg/dl (70-99); Sodium 141 mmol/L (135-145); Total Bilirubin 0.6 mg/dl (0.2-1.3); Total Protein 6.9 g/dl (6.3-8.2); eGFR 58.01
[2024-08-16 15:51] LABS: COVID-19 Antigen Negative (Negative)
[2024-08-16 16:02] LABS: Troponin I < 0.012 ng/ml
[2024-08-16] MEDS: NSS 500 IV (17:12)
[2024-08-16 18:42] LABS: Urine Albumin Trace (Neg - Trace); Urine Bilirubin Negative (Negative); Urine Character Clear (Clear); Urine Color Yellow; Urine Glucose Negative (Negative); Urine Ketone Negative (Negative); Urine Leukocyte Negative (Negative); Urine Nitrite Negative (Negative); Urine Occult Blood Negative (Negative); Urine Specific Gravity 1.015 (<1.030); Urine Urobilinogen Negative (Neg - 1+)
[2024-08-16 19:15] LABS: Lactic Acid 1.3 mmol/L (0.7-2.0)
[2024-08-16] MEDS: ZOFRAN 4 MG IV (21:08)
[2024-08-16] MEDS: OMNIPAQUE 50 ML PO (21:08)
[2024-08-16] MEDS: DILAUDID 1 MG IV (21:09)
--- NOTE | 2024-08-16 22:12 | HPS.HSE ---
Family Physician
-
Family Physician: Tamara Bell
Chief Complaint
-
Breathing difficulty and fecal incontinence
History of Present Illness
74-year-old man presents after being discharged a few days ago. His discharge summary on 08/13/24 states the following:
surgery was consulted for small bowel obstruction likely secondary to underlying scleroderma.
Infectious workup was done which was negative.
His back pain was managed with IV pain medication for T12 burst fracture.
Neurosurgery was consulted and a TLSO brace was ordered during ambulation and weightbearing.
Initial blood work also revealed an FLORENCE likely secondary to GI volume losses from nausea and vomiting.
His small bowel obstruction was managed nonoperatively with IV fluids, IV pain medication and diet advancement as tolerated and resolved.
On hospital day 9 he was evaluated by PMNR who recommended he be discharged to an acute inpatient facility for rehabilitation and strengthening.
On hospital day 15 he developed new severe abdominal pain which was different from prior for which a CT abdomen and pelvis was ordered revealing acute uncomplicated diverticulitis and enteritis (report below). For this the patient was treated with
IV Zosyn and resumed on stress dose steroids and given IV Dilaudid as needed for pain.
On hospital day 18 he developed diarrhea that was bloodless and painless thought to be due to to IV antibiotics, though at this time he reports marked improvement in pain while on stress dose steroids. He was reevaluated at this time by PT OT and
was feeling much stronger than before. He was then transition to oral Augmentin for a 14-day course and began on a low residue diet.
He is currently on antibiotics. He was doing relatively well until yesterday when he said he started to feel 'sick all over' and had diarrhea without blood or black stool. This continued throughout the night. Yesterday he also felt like his back
was numb from the mid to the lower portion of his back. This has since resolved. This morning he is having these discrete episodes where he feels like he cannot breathe lasting a minute. Patient states that he did have an episode of fecal
incontinence today, and that he 'could not feel' his stool coming out. At the time of my exam he was taking oral prep for an abdominal CT.
Medical History
Past Medical History
Past Medical History: Reports Other
Additional Past Medical History:
GERD,
essential HTN,
Hypercholesterolemia,
NIDDM,
CO
scleroderma,
SBO,
PNA,
Pulmonary fibrosis,
Gastroparesis
Cardiac (Stents X 6)
Cholecystectomy
CAD with multivessel PCI 2014- Resolute stent LAD, Promus stent x 2 mid/distal RCA, Promus stent x 3 circ with trop 12
Pulmonary fibrosis
Bacterial overgrowth syndrome
pseudo obstruction
salmonella 2022
bowel obstruction 03/22
Past Surgical History: Reports Other
Additional Past Surgical History:
See above
Social History
Tobacco: Non-smoker
Alcohol: None
Family History
Family History: Not pertinent
Allergies / Home Medications
Allergies reflects when Allergies were last updated in [facility].
Home Medications with original date entered in [facility]
Allergy/Medication List:
Allergies
Allergy/AdvReac Type Severity Reaction Status Date / Time
No Known Allergies Allergy Verified 07/24/24 07:44
Home Medications
aspirin 81 mg tablet,delayed release 81 mg PO HS Blood clot prevention/tx 06/28/20
atorvastatin 80 mg tablet 80 mg PO DAILY High cholesterol 06/28/20
glimepiride 2 mg tablet 2 mg PO DAILY Diabetes 02/08/22
pyridostigmine bromide 60 mg tablet 30 mg PO BID Gastrointestinal Issue 03/19/23
pantoprazole 40 mg tablet,delayed release (Protonix) 40 mg PO DAILY GERD 02/29/24
amlodipine 5 mg tablet 5 mg PO DAILY blood pressure #30 tabs 08/12/24
prucalopride 2 mg tablet (Motegrity) 2 mg PO DAILY Constipation #30 tabs 08/12/24
amoxicillin 500 mg-potassium clavulanate 125 mg tablet 1 tab PO Q12H 08/16/24
ondansetron 4 mg disintegrating tablet 4 mg PO Q8HPRN PRN nausea and vomiting 08/16/24
prednisone 10 mg tablet 10 mg PO DAILY 08/16/24
Review of Systems
-
History Source: Patient
A 12 point ROS was completed and negative except as noted: Yes
Physical Exam
Vital Signs
Vital Signs
Temp Pulse Resp BP Pulse Ox
98.1 F 81 11 132/92 98
08/16/24 14:09 08/16/24 21:00 08/16/24 21:00 08/16/24 21:00 08/16/24 21:00
Physical Exam
General: Appears in Distress, Pain and Appears Chronically Ill
HEENT: Ears Appear Normal and Other (large protruding eyes); No Nose Appears Normal
Respiratory: Decreased Breath Sounds
Cardiac: S1/S2 and Regular Rhythm
GI: Soft, Non Tender and Non Distended
Musculoskeletal: No Clubbing, No Cyanosis and No Edema
Skin: Warm and Dry
Neuro: Awake, Alert, Oriented and AO x 3
Psych: Calm
Laboratory Results
-
08/16/24 15:19
08/16/24 15:19
Laboratory Results
PT 14.4 Sec (11.4-14.6) 08/16/24 15:19
INR 1.09 08/16/24 15:19
Lactic Acid 1.3 mmol/L (0.7-2.0) 08/16/24 18:54
Total Bilirubin 0.6 mg/dl (0.2-1.3) 08/16/24 15:19
AST 20 U/L (17-59) 08/16/24 15:19
ALT 23 U/L (0-50) 08/16/24 15:19
Alkaline Phosphatase 133 U/L (38-126) H 08/16/24 15:19
Troponin I < 0.012 ng/ml 08/16/24 15:19
Data Reviewed
-
Lab Data: Labs Reviewed by me
Impression/Plan
-
IMPRESSION:
medically complex 74 man with thoracic pain, numbness and diarrhea.
WBC 17.8
BUN/Creat 24/1.3
PLAN:
1. Thoracic numbness - MRI does not show surgical emergency
Follow symptoms
Consider appropriate consults after CT is performed
2. Diarrhea - acute on chronic with h/o antibiotics - He has had bacterial overgrowth in past
Send stool for c-diff
Stool analyses
CT of abd pending
3. Complex PMH with 18 significant problems
Continue home meds unless CT shows contraindication
4. Failure to stay at home
Consider placement in acute rehab when ready for discharge
5. BUN/Creat > 20, 24/1.3 - this appears close to his baseline, but may represent chronic dehydrated state
Encourage PO fluids as tolerated
Check renal function daily
Full code
VCD for DVTP
[2024-08-17] VITALS (9 sets, daily range): BP systolic 109–169; BP diastolic 73–89; BMI 23.5; BMI 19.5
[2024-08-17] MEDS: AUGMENTIN 500 MG/125 MG 1 TABLET PO (00:15)
[2024-08-17] MEDS: NSS 1000 IV ×3 (00:16→18:18)
[2024-08-17 06:12] LABS: Hematocrit 30.9 % (39.0-52.0); Hemoglobin 9.8 g/dL (13.0-18.0); Mean Corp Hgb Conc. 31.7 g/dL (33.0-37.0); Mean Corpuscular Hgb 25.2 pg (27.0-31.0); Mean Corpuscular Volume 79.4 fL (80.0-94.0); Platelet Count 323 10^3/uL (130-400); Red Blood Cell Count 3.89 10^6/uL (4.70-6.10); Red Cell Dist. Width 16.9 % (11.5-14.5); White Blood Cell Count 14.3 10^3/uL (4.8-10.8)
[2024-08-17 06:20] LABS: ALT (SGPT) 21 U/L (0-50); AST (SGOT) 18 U/L (17-59); Albumin 3.5 g/dl (3.5-5.0); Alkaline Phosphatase 115 U/L (38-126); Blood Urea Nitrogen 18 mg/dl (9-20); Calcium 8.5 mg/dl (8.4-10.2); Carbon Dioxide 23 mmol/L (22-30); Chloride 107 mmol/L (98-107); Estimated Creatinine Clearance 62 ml/min; Glucose 71 mg/dl (70-99); Potassium 3.6 mmol/L (3.5-5.1); Sodium 139 mmol/L (135-145); Total Bilirubin 0.6 mg/dl (0.2-1.3); Total Protein 5.9 g/dl (6.3-8.2); eGFR > 60.00
[2024-08-17] MEDS: AUGMENTIN 500 MG/125 MG PO (08:32)
[2024-08-17] MEDS: MESTINON PO ×2 (08:34→19:45)
[2024-08-17] MEDS: LIPITOR PO (08:34)
[2024-08-17] MEDS: NORVASC 5 MG PO (08:35)
[2024-08-17 08:37] LABS: Glucose - Point of Care 68 mg/dl (70-99)
[2024-08-17] MEDS: PROTONIX 40 MG PO (08:37)
[2024-08-17] MEDS: AMARYL PO (09:02)
[2024-08-17 10:17] LABS: Glucose - Point of Care 84 mg/dl (70-99)
--- NOTE | 2024-08-17 11:22 | W.PN.HOSP.TC ---
Today's Communication/Plan
-
consult GI
stop Abx
Assessment / Plan
Assessment / Plan
pt is a 74 year old male
Thoracic numbness with (history of T12 burst fracture) and numbness to perianal region (cannot feel himself poop)--MRI T/L/S spines do not show surgical emergency--PT/OT--cont to wear brace recommended by neurosurgery last admission
Diarrhea/abdominal pain--had same presentation when steroids were tapered too quickly, placed back on stress doses last admission with plan to send on slow taper--pt did not follow (told me he couldn't tolerate the higher dose so put himself on 20mg
x 3 days) - acute on chronic with h/o antibiotics --Ct scan with resolved diverticulitis/enteritis so will d/c abx--consult GI--has chronic GI issues at baseline
Scleroderma with SIBO--continue with rifaximin--On chronic prednisone--was on stress dose steroids--not tolerating outpt doses--back to stress doses with slow taper last admission--didn't follow once discharged
anemia of chronic disease--received 1 unit pRBC for HGB 7.5 on 07/26/24--HGB 9.8 at baseline--s/p EGD 07/29/24 with short segment of Pickard's--retained food in stomach--no other significant findings
History of CAD status post prior coronary stents-continue with aspirin.
FLORENCE--due to dehydration--creat 1.3 on admission--now 1.0--encourage PO intake
DVT proph
code status--Full code
Anticipated Discharge: > 48 hours
Subjective/Interval History
-
Date of Service: August 17, 2024
pt well known to me from prior hospitalization--did not follow the slow taper of prednisone as instructed (and that we talked about with his son prior to d/c) (put himself on 20mg daily x 3 days) and returns with ongoing GI issues of diarrhea and
abdominal pain
Objective Data
-
Labs:
Laboratory Results
08/17/24
05:46
WBC 14.3 H
Hgb 9.8 L
Hct 30.9 L
Plt Count 323 D
Sodium 139
Potassium 3.6
Chloride 107
Carbon Dioxide 23
BUN 18
Creatinine 1.0
Glucose 71
Calcium 8.5
Total Bilirubin 0.6
AST 18
ALT 21
Alkaline Phosphatase 115
Vital Signs:
max temp for 24 hours
08/12/24
15:43
Temp 98.3 F
Vital Signs
Temp Pulse Resp BP Pulse Ox
98.1 F 75 16 169/82 100
08/17/24 07:45 08/17/24 08:35 08/17/24 07:45 08/17/24 08:35 08/17/24 07:45
Review of Systems
-
All other systems: Reviewed and negative
Abdomen/GI: Reports Abdominal Pain and Diarrhea
Psych: Reports Depressed
Physical Exam
-
General: Appears Chronically Ill
HEENT: Normocephalic and Atraumatic
Respiratory: Clear to Auscultation; Negative Wheezes or Rhonchi
Cardiac: Regular Rhythm and S1/S2; Negative Murmur
GI: Soft, Nontender, Nondistended and Normal Bowel Sounds
Musculoskeletal: No Clubbing, No Cyanosis and No Edema
Neuro: Awake and Alert
--- NOTE | 2024-08-17 14:28 | CON.GI ---
Consultation
-
Date/Time Consultation Requested: 08/17/24 11:12am
Date/Time Consultation Performed: 08/17/24 2:29pm
Requesting Provider: Mora Cerda
Performing Provider: Dimitri Esparza
Reason for Consultation: SIBO
Medical History
Chief Complaint / HPI
Chief Complaint: SIBO
History of Present Illness:
Patient is a 74-year-old male who presents with shortness of breath and change in bowel habits. He also had an episode where he had numbness in the saddle distribution the night before which has subsequently resolved. He was admitted to the [facility]hospital last month with a complicated hospital course involving small bowel obstruction that was managed conservatively, T12 fracture managed with neurosurgery consultation and brace, coffee-ground emesis with endoscopy showing no obvious GI
bleeding, diverticulitis treated with Augmentin after discharge. He was treated with steroids and discharged on a taper but he had concerns about being on high-dose steroids so he tapered the course quickly. He was having diarrhea after discharge
and then this was followed by no bowel movement for several days. He has a history of scleroderma and SIBO and has been followed at [place] with Dr. Jacome. He has been on a chronic regimen of Xifaxan half tablet daily, Motegrity 2 mg daily,
Mestinon 30 mg twice daily. He has been extremely fearful that high-dose steroids would alter his bowel movement pattern and lead to complications. He has a history of small bowel obstruction in the past and has a history of GI dysmotility. GI
has been consulted to help in management of his chronic GI symptoms.
Past Medical History
Past Medical History: CAD, NIDDM and Other (Scleroderma, SIBO, Chronic intestinal pseudoobstruction, pulmonary fibrosis)
Past Surgical History: Cardiac (stents) and Cholecystectomy
Social History
Tobacco: Non-Smoker
Alcohol: None
Family History
Family History: Reviewed & Not Pertinent
Allergies / Home Medications
Allergy/AdvReac Type Severity Reaction Status Date / Time
No Known Allergies Allergy Verified 12/26/24 07:44
�Medication �Instructions �Recorded
aspirin 81 mg tablet,delayed 81 mg PO HS Blood clot 06/28/20
release prevention/tx
atorvastatin 80 mg tablet 80 mg PO DAILY High cholesterol 06/28/20
glimepiride 2 mg tablet 2 mg PO DAILY Diabetes 02/08/22
pyridostigmine bromide 60 mg tablet 30 mg PO BID Gastrointestinal Issue 03/19/23
pantoprazole 40 mg tablet,delayed 40 mg PO DAILY GERD 02/29/24
release (Protonix)
amlodipine 5 mg tablet 5 mg PO DAILY blood pressure #30 08/12/24
tabs
prucalopride 2 mg tablet 2 mg PO DAILY Constipation #30 tabs 08/12/24
(Motegrity)
amoxicillin 500 mg-potassium 1 tab PO Q12H 08/16/24
clavulanate 125 mg tablet
ondansetron 4 mg disintegrating 4 mg PO Q8HPRN PRN nausea and 08/16/24
tablet vomiting
prednisone 10 mg tablet 10 mg PO DAILY 08/16/24
Review of Systems
-
All other systems: A 12 pt ROS was Negative except as stated above in HPI
Vital Signs
Temp Pulse Resp BP Pulse Ox
98.1 F 75 16 169/82 100
08/17/24 07:45 08/17/24 08:35 08/17/24 07:45 08/17/24 08:35 08/17/24 07:45
Physical Exam
Exam
General: No Apparent Distress
HEENT: Normocephalic and Atraumatic
Respiratory: Non Labored Respirations
GI: Soft, Non Tender and Non Distended
Skin: Warm and Dry
Results
WBC 14.3 10^3/uL (4.8-10.8) H 08/17/24 05:46
Hgb 9.8 g/dL (13.0-18.0) L 08/17/24 05:46
Hct 30.9 % (39.0-52.0) L 08/17/24 05:46
MCV 79.4 fL (80.0-94.0) L 08/17/24 05:46
Plt Count 323 10^3/uL (130-400) D 08/17/24 05:46
Absolute Neuts (auto) 15.7 10^3/uL (1.4-6.5) H 08/16/24 15:19
PT 14.4 Sec (11.4-14.6) 08/16/24 15:19
INR 1.09 08/16/24 15:19
Sodium 139 mmol/L (135-145) 08/17/24 05:46
Potassium 3.6 mmol/L (3.5-5.1) 08/17/24 05:46
Chloride 107 mmol/L (98-107) 08/17/24 05:46
Carbon Dioxide 23 mmol/L (22-30) 08/17/24 05:46
BUN 18 mg/dl (9-20) 08/17/24 05:46
Creatinine 1.0 mg/dL (0.7-1.3) 08/17/24 05:46
Calcium 8.5 mg/dl (8.4-10.2) 08/17/24 05:46
Total Bilirubin 0.6 mg/dl (0.2-1.3) 08/17/24 05:46
AST 18 U/L (17-59) 08/17/24 05:46
ALT 21 U/L (0-50) 08/17/24 05:46
Alkaline Phosphatase 115 U/L (38-126) 08/17/24 05:46
Diagnostic Image Results:
Prior GI Procedures:
EGD:
Colonoscopy:
Assessment / Plan
-
Summary: 74yo male presents with SOB, change in bowel habit, back numbness following recent prolonged hospitalization for SBO (managed conservatively), T12 burst fracture (stress steroids, brace, Neurosurgery consult), diverticulitis (on augmentin
after d/c), CGE (negative EGD). Following d/c he was fearful of high dose steorids given his GI hx (SIBO, scleroderma, chronic intestinal pseudoobstruction). He rapidly tapered off steroids, had diarrhea, followed by no BM and no flatus, the felt
numbness in back. CT this admission shows no obstruction and resolution of prior diverticulitis. He sees Dr Jacome at [place] for his SIBO/CIPO and has been maintained on regimen of xifaxan 1/2 tab daily, motegrity 2mg daily, mestinon 30mg BID
08/16/24 CT AP-
Minor diverticulosis without acute diverticulitis. No bowel obstruction.
Moderate distention of the urinary bladder. Left renal cyst.
Esophageal dysmotility versus reflux.
Pre-existing compression fracture of T12 has progressed.
08/08/24 CT AP-
1. Acute uncomplicated diverticulitis of the distal descending colon.
2. Enteritis involving a small bowel segment in the low central abdomen.
3. Stable cystitis versus underdistention.
Impression:
Change in BM
SIBO
CIPO
Scleroderma
T12 fracture
Recent diverticulitis rx augmentin
Recommendations:
Agree with stopping augmentin
Resume xifaxan at 550mg once daily
Continue motegrity 2mg daily and mestinon 30mg BID
Low residue diet
I discussed with pt that if steroids are needed to manage his T12 fracture and back symptoms, he should comply with treatment and we can manage his GI issues concurrently.
-
-
Thank you for consultation and allowing me to participate in the patient's care. Please call the data communications technician GI physician during the after hours with any questions or concerns.
[2024-08-17 14:51] LABS: Glucose - Point of Care 124 mg/dl (70-99)
--- NOTE | 2024-08-17 15:29 | EDRN ---
Patient with stool cultures outstanding. Per previous nurse, patient has not had a bowel movement since this morning. Patient reports formed bowel movement this morning but continuing to report he is 'having diarrhea'. Dr. Esparza (GI) made aware
and would like to keep patient on enhanced precautions until stool cultures are ruled out.
[2024-08-17] MEDS: DILAUDID 0.5 MG IV ×2 (19:45→23:18)
--- NOTE | 2024-08-17 19:46 | EDRN ---
Pt scheduled for Mestninon, attempted to give it to him, pt refusing. Pt states he needs to take it before he eats, it does not work if he takes it after food.
[2024-08-17] MEDS: COLCHICINE 0.6 MG PO (22:21)
[2024-08-17] MEDS: ASPIR LOW (ENTERIC COATED) 81 MG PO (22:21)
--- NOTE | 2024-08-18 00:13 | PTCARENOTE ---
Addendum entered by Stephanie Peterson RN 08/18/24 04:34:
pt rec'd second dose of Colchicine for the pain in his right knee and left foot.
Original Note:
Rec'd pt from ER at 840pm. Pt walked to bed from stretcher. NSSi infusing at 100ml/hr per order. Pt with c/o left foot pain, stating it is from his scleroderma. He stated that he had received Colchicine on his previous admission for it and it
helped. RN reached out to Milly [facility] who reviewed his chart and ordered one time dose on 0.6mg.
2315 pt was complaining of pain in his legs/knees, also pain experienced with his scleroderma. Pt was writhing in bed and moaning loudly. He states it is worse as he is lying in bed. Normally at home he is able to walk around to help it. Dilaudid
prn was not due for 30 minutes. RN contacted Milly [facility] who stated pt could have the dose of Dilaudid at that time to help his pain. At midnight pt was sleeping quietly.
[2024-08-18] MEDS: NSS 1000 IV ×2 (03:52→15:20)
[2024-08-18] MEDS: DILAUDID 0.5 MG IV ×2 (04:10→09:03)
[2024-08-18] MEDS: COLCHICINE 0.6 MG PO (04:31)
[2024-08-18 07:29] VITALS: BP 123/75
--- NOTE | 2024-08-18 09:40 | W.PN.GI.CBS2 ---
Addendum entered and electronically signed by Dimitri Esparza MD 08/18/24 11:38:
I saw and examined the patient.
The SAMPLE PREP TECHNICIAN or PA's note was reviewed and I agree with the note.
Comment: c/o back pain and leg pain/weak this am. No BMs, no flatus. Had dry heaves
ABD soft, non tender
REC:
Change to clear liquids
Pt agreeable to steroids to treat T12 fracture, weaned too quickly at home
Continue xifaxan, mestinon, motegrity
No obstruction on CT. If sx persist, check OBS series
Check stool c diff if diarrhea, but none since admission
Original Note:
Today's Communication / Plan
-
pt still with increased back pain this am and nausea with dry heaves and unable to PO meds this am
sent message to Dr. Cerda to see if steroids can be changed to IV as patient does not feed he can tolerate PO dosing
currently on Xifaxan Daily, Mestinon BID (per patient takes prior to meals) and Motegrity-- samples given as no current meds from home
cont Zofran PRN
Low residue diet as tolerated currently unable to eat with nausea
Assessment / Plan
-
Summary: 74yo male presents with SOB, change in bowel habit, back numbness following recent prolonged hospitalization for SBO (managed conservatively), T12 burst fracture (stress steroids, brace, Neurosurgery consult), diverticulitis (on augmentin
after d/c), CGE (negative EGD). Following d/c he was fearful of high dose steorids given his GI hx (SIBO, scleroderma, chronic intestinal pseudoobstruction). He rapidly tapered off steroids, had diarrhea, followed by no BM and no flatus, the felt
numbness in back. CT this admission shows no obstruction and resolution of prior diverticulitis. He sees Dr Jacome at [place] for his SIBO/CIPO and has been maintained on regimen of xifaxan 1/2 tab daily, motegrity 2mg daily, mestinon 30mg BID
08/16/24 CT AP-
Minor diverticulosis without acute diverticulitis. No bowel obstruction.
Moderate distention of the urinary bladder. Left renal cyst.
Esophageal dysmotility versus reflux.
Pre-existing compression fracture of T12 has progressed.
08/08/24 CT AP-
1. Acute uncomplicated diverticulitis of the distal descending colon.
2. Enteritis involving a small bowel segment in the low central abdomen.
3. Stable cystitis versus underdistention.
Impression:
Change in BM
SIBO
CIPO
Scleroderma with chronic GI issues with motility
T12 fracture
Recent diverticulitis rx Augmentin now off and repeat CT 08/16 with improved findings
esophageal dysmotility vs reflux per CT
Recommendations:
pt still with increased back pain this am and nausea with dry heaves and unable to PO meds this am
sent message to Dr. Cerda to see if steroids can be changed to IV as patient does not feed he can tolerate PO dosing
currently on Xifaxan Daily, Mestinon BID (per patient takes prior to meals) and Motegrity-- samples given as no current meds from home
cont Zofran PRN
Low residue diet as tolerated currently unable to eat with nausea
Subjective
Subjective
Date of Service: August 18, 2024
on low residue diet but unable to eat. Still with nausea and dry heaves this am--still with back pain and some difficulty with movement into leg with pain, denies bloating
Objective
Data Reviewed
Laboratory Data:
Laboratory Results
08/17/24 05:46
08/17/24 05:46
Laboratory Results
PT 14.4 Sec (11.4-14.6) 08/16/24 15:19
INR 1.09 08/16/24 15:19
Total Bilirubin 0.6 mg/dl (0.2-1.3) 08/17/24 05:46
AST 18 U/L (17-59) 08/17/24 05:46
ALT 21 U/L (0-50) 08/17/24 05:46
Alkaline Phosphatase 115 U/L (38-126) 08/17/24 05:46
Vital Signs and I&O:
Vital Signs
Temp Pulse Resp BP Pulse Ox
99 F 93 16 123/75 100
08/18/24 07:29 08/18/24 07:29 08/18/24 07:29 08/18/24 07:29 08/18/24 07:29
I&O
08/17/24 08/18/24 08/19/24
06:59 06:59 06:59
Intake Total 1200 / 1200
Output Total 750 / 750
Balance 450 / 450
Physical Exam
Physical Exam
HEENT: Anicteric and Moist mucous membranes
Cardiology: Normal Sinus Rhythm
Pulmonary: Clear
GI: Soft, Non Distended and Tender (minimal )
Extremities: Other (decreased movement with back pain- some movement in legs with minimal antigravity )
Neuro: Non Focal
--- NOTE | 2024-08-18 09:49 | VNURNOTE ---
Chart reviewed. Patient is current with [facility] nursing. Will continue to follow hospital course and DC plans.
[2024-08-18] MEDS: ZOFRAN 4 MG IV (09:55)
[2024-08-18] MEDS: XIFAXAN 550 MG PO (10:30)
[2024-08-18] MEDS: PROTONIX 40 MG PO (10:30)
[2024-08-18] MEDS: LIPITOR 80 MG PO (10:30)
[2024-08-18] MEDS: DELTASONE 50 MG PO (10:30)
[2024-08-18] MEDS: AMARYL 2 MG PO (10:30)
[2024-08-18] MEDS: NORVASC 5 MG PO (10:30)
[2024-08-18 10:31] VITALS: BMI 19.5
[2024-08-18] MEDS: MESTINON 30 MG PO ×2 (10:31→20:43)
--- NOTE | 2024-08-18 13:22 | W.PN.HOSP.TC ---
Addendum entered and electronically signed by Mora Cerda MD 08/18/24 16:46:
I saw and evaluated the patient independently. I reviewed the resident�s note and agree with findings and plan as documented by Dr. Nelson.
GENERAL: well developed, well nourished, male in no apparent distress
HEENT: NC/AT
HEART: regular rate and rhythm, +S1, +S2
LUNGS : clear to auscultation bilaterally
ABDOM: soft, nontender, nondistended, + bowel sounds
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
NEUROLOGIC: grossly intact
Thoracic numbness with (history of T12 burst fracture) and numbness to perianal region (cannot feel himself poop)--MRI T/L/S spines do not show surgical emergency--PT/OT--cont to wear brace recommended by neurosurgery last admission--cont steroid
taper
Diarrhea/abdominal pain--had same presentation when steroids were tapered too quickly, placed back on stress doses last admission with plan to send on slow taper--pt did not follow (told me he couldn't tolerate the higher dose so put himself on 20mg
x 3 days) - acute on chronic GI issues with h/o antibiotics --Ct scan with resolved diverticulitis/enteritis so will d/c abx--apprec GI
Scleroderma with SIBO--continue with rifaximin--On chronic prednisone--was on stress dose steroids--not tolerating outpt doses--back to stress doses with slow taper last admission--didn't follow the instructions once discharged--will consult rheum
gout--right knee--on colchicine and steroids
anemia of chronic disease--received 1 unit pRBC for HGB 7.5 on 07/26/24--HGB 9.8 at baseline--s/p EGD 07/29/24 with short segment of Pickard's--retained food in stomach--no other significant findings
History of CAD status post prior coronary stents-continue with aspirin.
FLORENCE--due to dehydration--creat 1.3 on admission--now 1.0--encourage PO intake
leukocytosis--resolving--OBS series neg on 08/01, 08/07 showed distal SBO/constipation, 08/08 CT scan with diverticulitis and enteritis as above-- taper prednisone back to outpt doses when ready --also with pseudogout--apprec ID--relieved with colchicine
code status --Full code
spoke with Dr. Jacome last admission prior to his d/c---held Xifaxan while on other abx--increased Motegrity back to daily
Original Note:
Today's Communication/Plan
-
Continue with stress dose steroids. Will speak with Rheum.
Assessment / Plan
Assessment / Plan
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
This Admission:
Patient admitted to stopping his steroid taper at home. His pain returned and became unbearable. He also had an episode of bowel incontinence prior to admission.
#T12 Burst fx, secondary to syncopal fall
#x1 Episode of Fecal incontinence
- Repeat CT of abm/pelvis shows T12 fracture has progressed. MRI Lumbar/Thoracic confirm 2mm extension of post. T12 body, but NO impingement on conus medullaris.
- Continue with TLSO brace. Pain medication requirements significantly reduced/eliminated with proper stress dose steroids. Patient admitted to tapering too quickly at home (having only taken steroids for 3 days, when his taper should have lasted
28d).
- Agreeable to starting proper stress dose steroid regimen. Will call Director Title case monitor to see about alternatives/proper tapering strategy
#SBO secondary to Scleroderma, Chronic - C/w home Xifaxan, Motegrity Pyridostigmine bid. Now on Clear Liquid diet, GI following, appreciate recs.
Chronic from Prior Admission:
#Diverticulitis w/ Enteritis - stable from prior admission. Repeat CT abd/pelvis showes minimal diverticulitis, likely improved due to abx. S/p Augmentin course. No need for additional abx at this time.
#T2DM - c/w glimepiride
#Leukocytosis (resolved) - peaked at 15.8. Found to have diverticulitis/enteritis, also on high dose steroids.
#FLORENCE (resolved?) - elevated creatinine, stable back to 1.3, near baseline
#Hypertension - c/w Amlodipine
#H/o CAD, s/p coronary stenting - c/w Atorvastatin
#Anemia of Chronic Disease - had HGB of 7.5, less than baseline. Admitted to [facility] over holiday. S/p 1U pRBC, s/p EGD showing no bleed will continue to monitor
#Pseudogout (resolved) - s/p Colchicine
Diet - Clear Liquid
DVT PPx - None.
Code Status - Full code
Anticipated Discharge: 24 - 48 hours
Subjective/Interval History
-
Feeling awful and in pain this morning. Was refusing steroids, citing it would cause him diarrhea. He is complaining his R knee is in excruciating pain and that he cannot move his body without being in pain. His back is in severe pain as well,
though he has no symptoms of numbness, tingling or loss of sensation.
Objective Data
-
Vital Signs:
Vital Signs
Temp Pulse Resp BP Pulse Ox
99 F 93 16 123/75 100
08/18/24 07:29 08/18/24 07:29 08/18/24 07:29 08/18/24 10:30 08/18/24 07:29
I&O
08/17/24 08/18/24 08/19/24
06:59 06:59 06:59
Intake Total 1200 / 1200
Output Total 750 / 750
Balance 450 / 450
Review of Systems
-
History Source: Patient
Constitutional: Denies Fever, Night Sweats or Chills
EENT: Reports No Symptoms Reported
Respiratory: Reports No Symptoms
Cardiac: Reports No Symptoms
Abdomen/GI: Reports No Symptoms
Genitourinary: Reports No Symptoms
Musculoskeletal: Reports Joint Pain (R knee, 05/08), Joint Swelling (R knee) and Other (05/08 back pain)
Skin: Reports No Symptoms
Neuro: Reports No Symptoms
Physical Exam
-
General: Well Developed, Well Nourished, Appears in Distress and Pain; Negative Fever or Chills
HEENT: Normocephalic, Atraumatic, Moist Mucous Membranes, Anicteric, Nathalie Conjunctivae, PERRLA, Nose Appears Normal and Ears Appear Normal
Respiratory: Clear to Auscultation and Non Labored Respirations; Negative Wheezes, Rales or Rhonchi
Cardiac: Regular Rhythm and S1/S2; Negative Murmur or Rub
Breast: N/A
GI: Soft, Nontender, Nondistended and Normal Bowel Sounds
Musculoskeletal: No Clubbing, No Cyanosis, No Edema and Other (R knee swollen, severely tender, erythematous and warm to the touch as compared to L knee. Abnormal exam findings limited to the knee joint only, with no involvement of the distal femur
or proximal tibia. ROM not assessed due to pain. )
Neuro: Awake, Alert and Oriented
--- NOTE | 2024-08-18 15:04 | CM ---
Patient seen at bedside, patient reports that he lives alone in a 2ST[address]- 3 steps to enter from the garage. Patient was independent prior to recent hospitalization. Patient has no DME at home. Patient is not on O2 and plan is for discharge home with
[facility]. Patient PCP Dr. Bell and he uses the [facility] in [place]. Patient plan is for discharge in a few days. CM will continue to follow for discharge planning needs.
Plan; home with [facility]
[2024-08-18 15:15] VITALS: BP 133/65
[2024-08-18] MEDS: ASPIR LOW (ENTERIC COATED) 81 MG PO (20:42)
[2024-08-18] MEDS: NON-FORMULARY ITEM 2 MG PO (20:45)
[2024-08-18 23:24] VITALS: BP 123/67
[2024-08-19] MEDS: AMARYL 2 MG PO (07:33)
[2024-08-19] MEDS: MESTINON 30 MG PO ×2 (07:33→20:43)
[2024-08-19] MEDS: PROTONIX 40 MG PO (07:33)
[2024-08-19] MEDS: LIPITOR 80 MG PO (07:33)
[2024-08-19] MEDS: NORVASC 5 MG PO (07:33)
[2024-08-19] MEDS: XIFAXAN 550 MG PO (07:34)
[2024-08-19] MEDS: DELTASONE 50 MG PO (07:34)
[2024-08-19 07:52] VITALS: BP 144/66
[2024-08-19 08:57] LABS: % Basophils 0.1 % (0-2); % Eosinophils 0.1 % (0-6); % Immature Granulocytes 0.7 % (0-0.5); % Lymphocytes 6.9 % (20.5-51.1); % Monocytes 8.6 % (1.7-9.3); % Neutrophils 83.6 % (42.2-75.2); Absolute Immature Granulocytes 0.1 10^3/uL (0-0.05); Absolute Lymphocytes 1.1 10^3/uL (1.2-3.4); Absolute Monocytes 1.4 10^3/uL (0.1-0.6); Absolute Neutrophils 13.6 10^3/uL (1.4-6.5); Hematocrit 32.7 % (39.0-52.0); Mean Corp Hgb Conc. 30.6 g/dL (33.0-37.0); Mean Corpuscular Hgb 24.8 pg (27.0-31.0); Mean Corpuscular Volume 80.9 fL (80.0-94.0); Mean Platelet Volume 9.2 fL (7.4-10.4); Nucleated Red Blood Cells % 0 % (-); Platelet Count 346 10^3/uL (130-400); Red Blood Cell Count 4.04 10^6/uL (4.70-6.10); Red Cell Dist. Width 16.5 % (11.5-14.5); White Blood Cell Count 16.3 10^3/uL (4.8-10.8)
[2024-08-19 09:27] LABS: ALT (SGPT) 14 U/L (0-50); AST (SGOT) 15 U/L (17-59); Albumin 3.8 g/dl (3.5-5.0); Alkaline Phosphatase 104 U/L (38-126); Blood Urea Nitrogen 17 mg/dl (9-20); Calcium 8.7 mg/dl (8.4-10.2); Carbon Dioxide 24 mmol/L (22-30); Chloride 105 mmol/L (98-107); Estimated Creatinine Clearance 49 ml/min; Glucose 100 mg/dl (70-99); Potassium 4.3 mmol/L (3.5-5.1); Sodium 140 mmol/L (135-145); Total Bilirubin 0.7 mg/dl (0.2-1.3); Total Protein 6.1 g/dl (6.3-8.2); eGFR > 60.00
[2024-08-19 11:56] VITALS: BP 135/66; PULSE 79
--- NOTE | 2024-08-19 12:31 | W.PN.HOSP.TC ---
Addendum entered and electronically signed by Jo-Ann Hawthorne MD 08/19/24 14:26:
I saw and evaluated the patient. I reviewed the resident�s note and agree with findings and plan as documented in the resident�s note.
A/P:
# Thoracic numbness with history of T12 burst fracture and numbness to perianal region (cannot feel himself poop)
MRI T/L/S spines did not show surgical emergency
Cont to wear brace recommended by neurosurgery last admission
cont steroid taper
# Diarrhea
# abdominal pain, much resolved
Pt could not tolerate higher dose steroid so he put himself on 20mg x 3 days
back on stress doses, but per discussion with rheum, recc prednisone 30mg, with slow taper 5mg every weekly.
Offered loperamide, pt declined
# Scleroderma with SIBO
continue with rifaximin
steroid as stated above
# gout, right knee
on colchicine and steroids
# anemia of chronic disease
s/p recent EGD 07/29/24 with short segment of Pickard's, no other significant findings
# History of CAD status post prior coronary stents
continue with aspirin.
# FLORENCE due to dehydration, resolved
Cr 1.6 on admission, today at 1.2
code status --Full code
Original Note:
Today's Communication/Plan
-
C/w stress dose steroids. Pending stool studies.
Assessment / Plan
Assessment / Plan
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
This Admission:
Patient admitted to stopping his steroid taper at home. His pain returned and became unbearable. He also had an episode of bowel incontinence prior to admission.
#Loose BM - Has tried Imodium and other medication in the past, does not want them. He cites these bowel movements as a reason for initially not wanting to take his steroid taper. Talked to him about importance of completing the stress dose steroids
and that we can manage his GI symptoms with diet modification and low residue diet. He is agreeable to continue steroids. Pending stool studies to rule out infectious causes.
#T12 Burst fx, secondary to syncopal fall
#x1 Episode of Fecal incontinence
- Repeat CT of abd/pelvis shows T12 fracture has progressed. MRI Lumbar/Thoracic confirm 2mm extension of post. T12 body, but no impingement on conus medullaris.
- Continue with TLSO brace. Pain medication requirements significantly reduced/eliminated with proper stress dose steroids. Patient admitted to tapering too quickly at home (having only taken steroids for 3 days, when his taper should have lasted
28d).
- Will decrease steroids to 30mg, then taper slowly by 5mg Q/week. If infectious workup is negative, can discharge him on this taper and he can follow up with Counselling Psychologist Dr. Fowler for continued management. Dr. Fowler is aware.
#SBO secondary to Scleroderma, Chronic - C/w home Xifaxan, Motegrity Pyridostigmine bid. Now on Low Residue diet, GI following, appreciate recs.
#Leukocytosis - likely secondary to steroid use as patient is currently afebrile, asymptomatic
Chronic from Prior Admission:
#Diverticulitis w/ Enteritis - stable from prior admission. Repeat CT abd/pelvis showes minimal diverticulitis, likely improved due to abx. S/p Augmentin course. No need for additional abx at this time.
#T2DM - c/w glimepiride
#Leukocytosis (resolved) - peaked at 15.8. Found to have diverticulitis/enteritis, also on high dose steroids.
#FLORENCE (resolved) - stable, back to baseline sCr
#Hypertension - c/w Amlodipine
#H/o CAD, s/p coronary stenting - c/w Atorvastatin
#Anemia of Chronic Disease - had HGB of 7.5, less than baseline. Admitted [facility]. S/p 1U pRBC, s/p EGD showing no bleed will continue to monitor
#Pseudogout (resolved) - s/p Colchicine
Diet - Clear Liquid
DVT PPx - None.
Code Status - Full code
Anticipated Discharge: 24 - 48 hours
Subjective/Interval History
-
Has no pain in his back or knee. No sensory changes. No fevers or chills. Had an episode of loose brown stool without mucous or blood. Otherwise feeling well.
Objective Data
-
Labs:
Laboratory Results
08/19/24
07:32
WBC 16.3 H
Hgb 10.0 L
Hct 32.7 L
Plt Count 346
Sodium 140
Potassium 4.3
Chloride 105
Carbon Dioxide 24
BUN 17
Creatinine 1.2
Glucose 100 H
Calcium 8.7
Total Bilirubin 0.7
AST 15 L
ALT 14
Alkaline Phosphatase 104
Vital Signs:
Vital Signs
Temp Pulse Resp BP Pulse Ox
97.9 F 68 18 144/66 100
08/19/24 07:52 08/19/24 07:52 08/19/24 07:52 08/19/24 07:52 08/19/24 07:52
I&O
08/18/24 08/19/24 08/20/24
06:59 06:59 06:59
Intake Total 1200 / 1200 1560 / 1560
Output Total 750 / 750 2125 / 2125
Balance 450 / 450 -565 / -565
Review of Systems
-
History Source: Patient
All other systems: Reviewed and negative
Constitutional: Denies Fever, Fatigue, Night Sweats or Chills
EENT: Reports No Symptoms Reported
Respiratory: Reports No Symptoms
Cardiac: Reports No Symptoms
Abdomen/GI: Reports Diarrhea; Denies Abdominal Pain, Nausea, Vomiting or Bloody Stools
Breast: Reports N/A
Genitourinary: Reports No Symptoms
Musculoskeletal: Reports No Symptoms
Skin: Reports No Symptoms
Neuro: Reports No Symptoms
Physical Exam
-
General: Well Developed, Well Nourished, No Apparent Distress, Comfortable and Conversant; Negative Pain, Fever or Chills
HEENT: Normocephalic, Atraumatic, Moist Mucous Membranes, Anicteric, [place] Conjunctivae and PERRLA
Respiratory: Clear to Auscultation; Negative Wheezes, Rales or Rhonchi
Cardiac: Regular Rhythm and S1/S2; Negative Murmur or Rub
Breast: N/A
GI: Soft, Nontender, Nondistended and Normal Bowel Sounds
Genito-urinary: Deferred by me
Musculoskeletal: No Clubbing, No Cyanosis and No Edema
Neuro: Awake, Alert and Oriented
--- NOTE | 2024-08-19 12:51 | W.DCSUMMARY ---
Documented by User: Sunny Nelson MD, Resident 08/20/24 17:10
Discharge Summary
Discharge Data
Date of Admission: 08/16/24
Date of Discharge: 08/20/24
Total time spent discharging patient (in min): >30 min
-
Pending Results: Yes
Additional Pending Results:
Stool Cultures.
Hospital Course
Discharging Physician : Dr. Sunny Nelson, Dr. Jo-Ann Hawthorne
Disposition : Home
Primary care physician : Tamara Bell
Principal Discharge diagnosis : Back Pain, Diarrhea
Chronic Discharge diagnosis : T12 burst fracture, Scleroderma w/ SIBO, T2Dm, Hypertension, hx of CAD w/ coronary stenting, anemia of chronic disease,
Hospital Course :
Abdiaziz presented to the [facility] for recurrence of severe back pain and an episode of bowel incontinence. He was discharged from the hospital on 08/13/2023 with a slow steroid taper, but tapered himself too quickly citing diarrhea as a reason. His back
pain from the T12 fracture returned with new onset knee pain and an episode of bowel incontinence. MRI of the lumbar and thoracic spine were done which ruled out acute cord compression. There was an attempt to restart him on stress dose steroids but
he refused for several days. His back pain and subsequent R knee pain did not respond well to IV dilaudid or oral dilaudid. After a lengthy discussion, the patient agreed to resume stress dose steroids which rapidly improved his pain. A discussion
was had with the patient's Flag Signalman Dr. Fowler and the decision was made to decrease his steroids to 30mg from 50mg and to initiate a slow taper. GI was consulted for the patient's diarrhea to rule out possible infectious causes. The
patient was deemed medically stable for discharge and suspicion for infectious diarrhea is low so the decision was made to discharge the patient on a slow steroid taper and instructions for close follow up with outpatient Flag Signalman and
Orthopedic doctor were given. The patient will be informed of his stool study results and initiated on appropriate treatment if necessary.
Important imaging findings :
CT Abd/pel W Iv And Oral Contr:
No acute inflammatory process within the abdomen or pelvis. Minor diverticulosis without acute diverticulitis. No bowel obstruction.
Moderate distention of the urinary bladder. No bladder calculus. No renal or ureteral calculus and no obstructive uropathy. Left renal cyst.
Esophageal dysmotility versus reflux.
Pre-existing compression fracture of T12 has progressed.
MR Lumbar Without Contrast:
There is approximately 80% subacute compression fracture involving the superior and inferior endplates of T12, similar to that seen on the 08/08/2024 CT examination with 2 mm extension of the posterior body of T12 into the anterior aspect of the
spinal canal. There is no associated impingement upon the conus medullaris which terminates at T12.
MR Thoracic Spine Without:
There is approximately 80% subacute compression fracture involving the superior and inferior endplates of T12, similar to that seen on the 08/08/2024 CT examination with 2 mm extension of the posterior body of T12 into the anterior aspect of the
spinal canal. There is no associated impingement upon the conus medullaris which terminates at T12
Procedure findings : none
Discharge Plan
-
Patient Disposition: Home (Routine Discharge)
Discharge Diagnosis/Procedures: Back Pain secondary to T12 Burst Fracture
Condition: Fair
Diet: Low Residue
Activity: As tolerated
Driving Restrictions: As prior to admission
Bathing Restrictions: None
Referrals:
Rick Butcher MD [Non-Admitting Privileges] - (Follow up w/ orthopedic)
Jag Fowler MD [Active] - None
Tamara Bell MD [Family Provider] - in less than 1 week
Additional Discharge Medication Instructions: Continue with 30mg Prednisone for seven days, then take 25mg prednisone for seven days, then take 20mg prednisone for seven days or until follow up appointment with Flag Signalman Dr. Fowler
Follow up w/ orthopedic Dr. Butcher for back pain/T12 burst fracture
Prescriptions:
New
Xifaxan 550 mg Tablet
550 mg PO DAILY 30 Days Qty: 30 0RF
prednisone 5 mg tablet
5 mg PO DAILY 21 Days Qty: 21 0RF
Rx Instructions:
Take 30mg for seven days,
25mg for seven days,
20mg for seven days and see Flag Signalman
Continued
aspirin 81 MG tablet,delayed release (DR/EC)
81 mg PO HS
atorvastatin 80 MG tablet
80 mg PO DAILY
glimepiride 2 mg Tablet
2 mg PO DAILY
pyridostigmine bromide 60 mg tablet
30 mg PO BID
pantoprazole [Protonix] 40 mg tablet,delayed release (DR/EC)
40 mg PO DAILY
Rx Instructions:
as before -not a new medication
amlodipine 5 mg Tablet
5 mg PO DAILY Qty: 30 0RF
ondansetron 4 mg tablet,disintegrating
4 mg PO Q8HPRN PRN (Reason: nausea and vomiting)
prucalopride [Motegrity] 2 mg tablet
2 mg PO HS
Discontinued
prednisone 10 mg tablet
10 mg PO DAILY
amoxicillin-pot clavulanate 500-125 mg tablet
1 tab PO Q12H
Discharge Orders:
Discharge Patient (As Directed); Ordered 08/20/24
Ordered By: Sunny Nelson
Discharge Date and Time
Discharge Date/Time: 08/20/24 16:53
Print Language: HEBREW

Documented by User: Jo-Ann Hawthorne MD 08/20/24 17:15
Discharge Summary
Discharge Data
Date of Admission: 08/16/24
Date of Discharge: 08/20/24
Discharge Plan
-
Patient Disposition: Home (Routine Discharge)
Discharge Diagnosis/Procedures: Back Pain secondary to T12 Burst Fracture
Condition: Fair
Diet: Low Residue
Activity: As tolerated
Driving Restrictions: As prior to admission
Bathing Restrictions: None
Referrals:
Rick Butcher MD [Non-Admitting Privileges] - (Follow up w/ orthopedic)
Jag Fowler MD [Active] - None
Tamara Bell MD [Family Provider] - in less than 1 week
Additional Discharge Medication Instructions: Continue with 30mg Prednisone for seven days, then take 25mg prednisone for seven days, then take 20mg prednisone for seven days or until follow up appointment with Flag Signalman Dr. Fowler
Follow up w/ orthopedic Dr. Butcher for back pain/T12 burst fracture
Prescriptions:
New
Xifaxan 550 mg Tablet
550 mg PO DAILY 30 Days Qty: 30 0RF
prednisone 5 mg tablet
5 mg PO DAILY 21 Days Qty: 21 0RF
Rx Instructions:
Take 30mg for seven days,
25mg for seven days,
20mg for seven days and see Flag Signalman
Continued
aspirin 81 MG tablet,delayed release (DR/EC)
81 mg PO HS
atorvastatin 80 MG tablet
80 mg PO DAILY
glimepiride 2 mg Tablet
2 mg PO DAILY
pyridostigmine bromide 60 mg tablet
30 mg PO BID
pantoprazole [Protonix] 40 mg tablet,delayed release (DR/EC)
40 mg PO DAILY
Rx Instructions:
as before -not a new medication
amlodipine 5 mg Tablet
5 mg PO DAILY Qty: 30 0RF
ondansetron 4 mg tablet,disintegrating
4 mg PO Q8HPRN PRN (Reason: nausea and vomiting)
prucalopride [Motegrity] 2 mg tablet
2 mg PO HS
Discontinued
prednisone 10 mg tablet
10 mg PO DAILY
amoxicillin-pot clavulanate 500-125 mg tablet
1 tab PO Q12H
Discharge Orders:
Discharge Patient (As Directed); Ordered 08/20/24
Ordered By: Sunny Nelson
Discharge Date and Time
Discharge Date/Time: 08/20/24 16:53
Print Language: HEBREW
--- NOTE | 2024-08-19 13:03 | W.PN.GI.CBS2 ---
Today's Communication / Plan
-
Low Residual diet as tolerated
Assessment / Plan
-
Summary: 74yo male presents with SOB, change in bowel habit, back numbness following recent prolonged hospitalization for SBO (managed conservatively), T12 burst fracture (stress steroids, brace, Neurosurgery consult), diverticulitis (on augmentin
after d/c), CGE (negative EGD). Following d/c he was fearful of high dose steorids given his GI hx (SIBO, scleroderma, chronic intestinal pseudoobstruction). He rapidly tapered off steroids, had diarrhea, followed by no BM and no flatus, the felt
numbness in back. CT this admission shows no obstruction and resolution of prior diverticulitis. He sees Dr Jacome at [place] for his SIBO/CIPO and has been maintained on regimen of xifaxan 1/2 tab daily, motegrity 2mg daily, mestinon 30mg BID
08/16/24 CT AP-
Minor diverticulosis without acute diverticulitis. No bowel obstruction.
Moderate distention of the urinary bladder. Left renal cyst.
Esophageal dysmotility versus reflux.
Pre-existing compression fracture of T12 has progressed.
08/08/24 CT AP-
1. Acute uncomplicated diverticulitis of the distal descending colon.
2. Enteritis involving a small bowel segment in the low central abdomen.
3. Stable cystitis versus underdistention.
Impression:
Change in BM
SIBO
CIPO
Scleroderma with chronic GI issues with motility
T12 fracture
Recent diverticulitis rx Augmentin now off and repeat CT 08/16 with improved findings
esophageal dysmotility vs reflux per CT
Recommendations:
Patient tolerating liquid diet. Requesting advancing diet to low residual diet. Low residual diet as tolerated
Continue Xifaxan Daily, Mestinon BID (per patient takes prior to meals) and Motegrity-- samples given as no current meds from home
If diarrhea persists will check stool for infection
cont Zofran PRN
Steroids as per medical team
Total Time Spent with Patient (in minutes): 35
Subjective
Subjective
Date of Service: August 19, 2024
Tolerating liquid diet without any issues. Denies any nausea or vomiting. Had loose BM
Objective
Data Reviewed
Laboratory Data:
Laboratory Results
08/19/24 07:32
08/19/24 07:32
Laboratory Results
PT 14.4 Sec (11.4-14.6) 08/16/24 15:19
INR 1.09 08/16/24 15:19
Total Bilirubin 0.7 mg/dl (0.2-1.3) 08/19/24 07:32
AST 15 U/L (17-59) L 08/19/24 07:32
ALT 14 U/L (0-50) 08/19/24 07:32
Alkaline Phosphatase 104 U/L (38-126) 08/19/24 07:32
Vital Signs and I&O:
Vital Signs
Temp Pulse Resp BP Pulse Ox
97.9 F 68 18 144/66 100
08/19/24 07:52 08/19/24 07:52 08/19/24 07:52 08/19/24 07:52 08/19/24 07:52
I&O
08/18/24 08/19/24 08/20/24
06:59 06:59 06:59
Intake Total 1200 / 1200 1560 / 1560
Output Total 750 / 750 2125 / 2125
Balance 450 / 450 -565 / -565
Physical Exam
Physical Exam
GI: Soft, Non Distended and Non Tender
--- NOTE | 2024-08-19 13:45 | CM ---
Chart reviewed and patient did well with physical therapy and plan is to home when stable.
Plan; Home when stable with [facility].
[2024-08-19 15:37] VITALS: BP 161/67
[2024-08-19] MEDS: NON-FORMULARY ITEM 2 MG PO (20:44)
[2024-08-19] MEDS: ASPIR LOW (ENTERIC COATED) 81 MG PO (20:50)
[2024-08-19 23:26] VITALS: BP 134/76
--- NOTE | 2024-08-20 05:01 | DOWNTIME ---
There was a [employer] Downtime on 08/20/2024 from 0100 to 08/20/2023 at 0205 . Downtime documentation of patient's care, including medication administrations, has been reconciled in the electronic record per guidelines. Refer to the
patient's paper chart under the miscellaneous tab to see printed paper medication records and downtime forms.
[2024-08-20 07:03] VITALS: BP 148/73
[2024-08-20 07:59] LABS: % Basophils 0.2 % (0-2); % Eosinophils 0.2 % (0-6); % Immature Granulocytes 0.5 % (0-0.5); % Monocytes 8.9 % (1.7-9.3); % Neutrophils 79.2 % (42.2-75.2); Absolute Immature Granulocytes 0.1 10^3/uL (0-0.05); Absolute Lymphocytes 1.8 10^3/uL (1.2-3.4); Absolute Monocytes 1.5 10^3/uL (0.1-0.6); Absolute Neutrophils 13.2 10^3/uL (1.4-6.5); Hematocrit 31.4 % (39.0-52.0); Mean Corp Hgb Conc. 31.8 g/dL (33.0-37.0); Mean Corpuscular Hgb 25.1 pg (27.0-31.0); Mean Corpuscular Volume 78.9 fL (80.0-94.0); Nucleated Red Blood Cells % 0 % (-); Platelet Count 322 10^3/uL (130-400); Red Blood Cell Count 3.98 10^6/uL (4.70-6.10); Red Cell Dist. Width 16.7 % (11.5-14.5); White Blood Cell Count 16.7 10^3/uL (4.8-10.8)
[2024-08-20] MEDS: MESTINON 30 MG PO (08:07)
[2024-08-20] MEDS: XIFAXAN 550 MG PO (08:07)
[2024-08-20] MEDS: PROTONIX 40 MG PO (08:08)
[2024-08-20] MEDS: LIPITOR 80 MG PO (08:08)
[2024-08-20] MEDS: AMARYL 2 MG PO (08:08)
[2024-08-20] MEDS: DELTASONE 30 MG PO (08:08)
[2024-08-20] MEDS: NORVASC 5 MG PO (08:08)
[2024-08-20 08:23] LABS: ALT (SGPT) 14 U/L (0-50); AST (SGOT) 14 U/L (17-59); Albumin 3.8 g/dl (3.5-5.0); Alkaline Phosphatase 102 U/L (38-126); Blood Urea Nitrogen 28 mg/dl (9-20); Calcium 9.2 mg/dl (8.4-10.2); Carbon Dioxide 25 mmol/L (22-30); Chloride 103 mmol/L (98-107); Estimated Creatinine Clearance 49 ml/min; Glucose 78 mg/dl (70-99); Potassium 4.2 mmol/L (3.5-5.1); Sodium 139 mmol/L (135-145); Total Bilirubin 0.5 mg/dl (0.2-1.3); Total Protein 6.3 g/dl (6.3-8.2); eGFR > 60.00
--- NOTE | 2024-08-20 11:56 | CM ---
CM reviewed chart, patient seen bedside. Patient reports he is hopeful for discharge this evening, family will transport. IMM verbally reviewed with patient, declined copy at this time. CM will continue to follow for all discharge planning needs.
Plan; home with [facility]
--- NOTE | 2024-08-20 12:31 | W.PN.HOSP.TC ---
Addendum entered and electronically signed by Jo-Ann Hawthorne MD 08/20/24 12:47:
I saw and evaluated the patient. I reviewed the resident�s note and agree with findings and plan as documented in the resident�s note.
A/P:
# Thoracic numbness with history of T12 burst fracture and numbness to perianal region (cannot feel himself poop), resolved
MRI T/L/S spines did not show surgical emergency
Cont to wear brace recommended by neurosurgery last admission
cont steroid taper
# Diarrhea
# abdominal pain, much resolved
Pt could not tolerate higher dose steroid so he put himself on 20mg x 3 days
back on stress doses, but per discussion with rheum, recc prednisone 30mg, with slow taper 5mg every weekly.
Offered loperamide, pt declined
follow stool culture for completeness sake
# Scleroderma with SIBO
continue with rifaximin
steroid as stated above
# gout, right knee
on colchicine and steroids
# anemia of chronic disease
s/p recent EGD 07/29/24 with short segment of Pickard's, no other significant findings
# History of CAD status post prior coronary stents
continue with aspirin.
# FLORENCE due to dehydration, resolved
Cr 1.6 on admission, today at 1.2
code status: Full code
Original Note:
Today's Communication/Plan
-
Likely d/c today pending stool studies
Assessment / Plan
Assessment / Plan
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
This Admission:
Patient admitted to stopping his steroid taper at home. His pain returned and became unbearable. He also had an episode of bowel incontinence prior to admission.
#Loose BM - Has tried Imodium and other medication in the past, does not want them. He cites these bowel movements as a reason for initially not wanting to take his steroid taper. Talked to him about importance of completing the stress dose steroids
and that we can manage his GI symptoms with diet modification and low residue diet. He is agreeable to continue steroids. Likely discharge today if stool studies negative.
#T12 Burst fx, secondary to syncopal fall
#x1 Episode of Fecal incontinence
- Repeat CT of abd/pelvis shows T12 fracture has progressed. MRI Lumbar/Thoracic confirm 2mm extension of post. T12 body, but no impingement on conus medullaris.
- Continue with TLSO brace. Pain medication requirements significantly reduced/eliminated with proper stress dose steroids. Follow up OP with ortho Dr. Butcher.
- Doing well on 30mg, then taper slowly by 5mg Q/week. If infectious workup is negative, can discharge him on this taper and he can follow up with Roadability Machine Operator Dr. Fowler for continued management. Dr. Fowler is aware.
#SBO secondary to Scleroderma, Chronic - C/w home Xifaxan, Motegrity Pyridostigmine bid. Tolerating Low Residue .
#Leukocytosis - likely secondary to steroid use as patient is currently afebrile, asymptomatic
Chronic from Prior Admission:
#Diverticulitis w/ Enteritis (resolving) - stable from prior admission. Repeat CT abd/pelvis shows minimal diverticulitis, likely improved due to abx. S/p Augmentin course. No need for additional abx at this time.
#T2DM - c/w glimepiride
#FLORENCE (resolved) - stable, back to baseline sCr
#Hypertension - c/w Amlodipine
#H/o CAD, s/p coronary stenting - c/w Atorvastatin
#Anemia of Chronic Disease - had HGB of 7.5, less than baseline. Admitted to coffee ground emesis over holiday. S/p 1U pRBC, s/p EGD showing no bleed will continue to monitor
#Pseudogout (resolved) - s/p Colchicine
Diet - Clear Liquid
DVT PPx - None.
Code Status - Full code
Anticipated Discharge: Today
Subjective/Interval History
-
had a loose bm this morning, no blood, no pain no straining. Feeling well overall. no back or knee pain. no fevers or chills.
Objective Data
-
Labs:
Laboratory Results
08/20/24
07:21
WBC 16.7 H
Hgb 10.0 L
Hct 31.4 L
Plt Count 322
Sodium 139
Potassium 4.2
Chloride 103
Carbon Dioxide 25
BUN 28 H
Creatinine 1.2
Glucose 78
Calcium 9.2
Total Bilirubin 0.5
AST 14 L
ALT 14
Alkaline Phosphatase 102
Vital Signs:
Vital Signs
Temp Pulse Resp BP Pulse Ox
97.8 F 69 18 148/73 99
08/20/24 07:03 08/20/24 07:03 08/20/24 07:03 08/20/24 08:08 08/20/24 07:03
I&O
08/19/24 08/20/24 08/21/24
06:59 06:59 06:59
Intake Total 1560 / 1560 1440 / 1440
Output Total 2125 / 2125
Balance -565 / -565 1440 / 1440
Review of Systems
-
History Source: Patient
All other systems: Reviewed and negative
Constitutional: Reports No Symptoms
EENT: Reports No Symptoms Reported
Respiratory: Reports No Symptoms
Cardiac: Reports No Symptoms
Abdomen/GI: Reports Diarrhea; Denies Abdominal Pain, Nausea, Vomiting or Constipated
Breast: Reports N/A
Genitourinary: Reports No Symptoms
Musculoskeletal: Reports No Symptoms
Skin: Reports No Symptoms
Neuro: Reports No Symptoms
Physical Exam
-
General: Well Developed, Well Nourished, No Apparent Distress, Comfortable and Conversant
HEENT: Normocephalic, Atraumatic, Moist Mucous Membranes, Anicteric, [place] Conjunctivae, PERRLA, Nose Appears Normal and Ears Appear Normal
Respiratory: Clear to Auscultation
Cardiac: Regular Rhythm and S1/S2
Breast: N/A
GI: Soft, Nontender, Nondistended and Normal Bowel Sounds
Genito-urinary: Deferred by me
Musculoskeletal: No Clubbing, No Cyanosis and No Edema
Neuro: Awake, Alert and Oriented
Psych: Calm
[2024-08-20 15:20] VITALS: BP 155/67
== END 2024-08-20 16:53 | disposition home health service (06) | DRG 552 ==
LOC: 4 WEST ACU 22:50
PROVIDERS: ADMITTING PHYSICIAN Internal Medicine; ATTENDING PHYSICIAN Internal Medicine; CONSULT PHYSICIAN Specialist; EMERGENCY PHYSICIAN Emergency Medicine; FAMILY PHYSICIAN Family Medicine
DX: S22.081A Stable burst fracture of T11-T12 vertebra, initial encounter for closed fracture (principal); N17.9 Acute kidney failure, unspecified; E78.00 Pure hypercholesterolemia, unspecified; I10 Essential (primary) hypertension; E11.43 Type 2 diabetes mellitus with diabetic autonomic (poly)neuropathy; K31.84 Gastroparesis; I25.10 Atherosclerotic heart disease of native coronary artery without angina pectoris; M34.9 Systemic sclerosis, unspecified; D63.8 Anemia in other chronic diseases classified elsewhere; K57.30 Diverticulosis of large intestine without perforation or abscess without bleeding; M1A.0610 Idiopathic chronic gout, right knee, without tophus (tophi); E86.0 Dehydration; K63.8219 Small intestinal bacterial overgrowth, unspecified; J84.10 Pulmonary fibrosis, unspecified; K21.9 Gastro-esophageal reflux disease without esophagitis; W18.39XA Other fall on same level, initial encounter; Z95.5 Presence of coronary angioplasty implant and graft; Z79.82 Long term (current) use of aspirin; Z79.52 Long term (current) use of systemic steroids; Z79.899 Other long term (current) drug therapy; Z11.52 Encounter for screening for COVID-19
CPT/HCPCS: 71046; 72146; 72148; 74177; 80053; 81003; 82962; 83605; 84443; 84484; 85025; 85027; 85610; 87040; 87045; 87046; 87324; 87427; 87449; 87502; 87811; 89055; 93005; 96361; 96374; 96375; 96376; 97163; 99291; Q9967

== ENCOUNTER 2024-08-25 14:06 | Inpatient (IN) | payer OTHER, MEDICARE, SELFPAY ==
[2024-08-25] VITALS (8 sets, daily range): BP systolic 128–164; BP diastolic 72–102; BMI 19.1
--- NOTE | 2024-08-25 09:47 | ED.GENMED ---
History of Present Illness
General
Chief Complaint: Abdominal Symptoms
Source: patient
Exam Limitations: none
Time Seen by Provider: 08/25/24 09:38
History of Present Illness
History of Present Illness:
See MDM
Past History
Past History
ED Past Medical History: CAD, GERD, HTN, Hypercholesterolemia, NIDDM, NC and Other (scleroderma, SBO,, PNA, Pulmonary fibrosis, Gastroporesis)
ED Past Surgical History: Cardiac (Stents X 6) and Cholecystectomy
Social History
Tobacco: Non-smoker
Alcohol: None
Drug: None
Personal:
Living: with family
Employment: Retired
Family History
Family History: CAD
Phy Exam
Physical Exam
Physical Exam:
See MDM
Course
Orders/Labs/Results
Orders:
Orders
08/25/24 09:45
CT Abd/pelvis W Iv Cont Urgent
Comment:
Reason For Exam: upper abd pain, vomiting, diarrhea
0.9% Sodium Chloride 1000 ml [Nss] 1,000 ml IV BOLUS
Famotidine [Pepcid] 20 mg IV NOW STA
HYDROmorphone [Dilaudid] 1 mg IV NOW STA
Ondansetron Injectable [Zofran] 4 mg IV NOW STA
08/25/24 09:46
Electrocardiogram (*1) Urgent
Reason for Study: Abdominal Pain
EKG- Treatment ONCE
08/25/24 10:28
Complete Blood Count/With Diff Urgent
Comprehensive Metabolic Panel Urgent
Lipase Urgent
Abnormal Lab Results
08/25/24
10:28
WBC 26.2 H 10^3/uL
(4.8-10.8)
RBC 4.62 L 10^6/uL
(4.70-6.10)
Hgb 11.5 L g/dL
(13.0-18.0)
Hct 36.1 L %
(39.0-52.0)
MCV 78.1 L fL
(80.0-94.0)
MCH 24.9 L pg
(27.0-31.0)
MCHC 31.9 L g/dL
(33.0-37.0)
RDW 17.3 H %
(11.5-14.5)
Abs Immat Gran (auto) 0.2 H 10^3/uL
(0-0.05)
Absolute Neuts (auto) 22.3 H 10^3/uL
(1.4-6.5)
Absolute Monos (auto) 1.9 H 10^3/uL
(0.1-0.6)
Immature Gran % 0.8 H %
(0-0.5)
Neutrophils % 85.1 H %
(42.2-75.2)
Lymphocytes % 6.4 L %
(20.5-51.1)
BUN 37 H mg/dl
(9-20)
Glucose 107 H mg/dl
(70-99)
Lipase 507 H U/L
(23-300)
08/25/24 10:28
08/25/24 10:28
Vital Signs
Initial and Last Documented VS:
Initial Vital Signs
Temp Pulse Resp BP Pulse Ox
99 F 114 18 132/80 100
08/25/24 09:00 08/25/24 09:00 08/25/24 09:00 08/25/24 09:00 08/25/24 09:00
Last Documented Vital Signs
Temp Pulse Resp BP Pulse Ox
99 F 79 11 140/102 100
08/25/24 09:00 08/25/24 12:12 08/25/24 12:12 08/25/24 12:11 08/25/24 09:00
MDM/Problems Addressed
Differential Diagnosis Includes:
HPI and MDM Narrative:
74-year-old male presenting for evaluation of abdominal pain, nausea, vomiting and diarrhea. Patient was recently admitted for back pain. He had an MRI to rule out cord compression. Patient was started on stress dose steroids for his scleroderma.
It did help with the scleroderma induced pain but patient can no longer tolerate any food or water.
On exam, patient is weak and frail. He is clinically dry. He is epigastric tenderness. Will obtain discussed viral versus drug-induced.
Physical exam
General: Weak, Frail, cachectic
HEENT: protecting airway. Dry mucous membrane
Neck: appears supple
CV: No evidence of cyanosis
Resp: No accessory muscle use
Abd: Non-distended. Epigastric tenderness. No rebound
Extremities: No deformities
Neuro: alert
Psych: Normal affect
Skin: Intact
Problems Addressed including Acute and Chronic Conditions affecting care:
1. Abdominal pain
Acuity: acute
Prognosis: stable
Details: Will obtain CT but potentially it is steroid-induced gastritis
2. Dehydration
Acuity: acute
Prognosis: stable
Details: Will give IV fluids
Updates
CT consistent with likely gastritis. Patient does have elevated lipase. Given his pain and inability to tolerate p.o., will admit
Differential Diagnosis (but not limited to): Steroid induced gastritis, peptic ulcer disease, pancreatitis, small bowel obstruction
Testing considered: Troponin but symptoms not do not appear to be exertional
Drug therapy (if applicable): OTC meds, please see d/c instruction regarding Rx drugs
Amount and/or Complexity of Data Reviewed
Clinical info obtained from: Patient
External data reviewed: N/A
Labs I independently reviewed (but not limited to): Leukocytosis, elevated lipase
Radiology: The CT scan was personally and independently reviewed. In addition, official CT report reviewed.
Pulse Ox: not hypoxic
EKG independently reviewed: Sinus rhythm with PVCs, normal axis, no STEMI
Tufting Machine Operator Single Needle: N/A
Critical Care: N/A
Risk of Complication:
Social Determinants of health: Good social support
Discussed with other providers: Hospitalist
Escalation of Care includes Admit/Obs: Given the pain, elevated lipase and inability tolerate p.o., will admit
Occasional wrong word or 'sound a like' substitutions may have occurred due to the inherent limitations of voice recognition software. Read the chart carefully and recognize, using context, where substitutions have occurred.
*Critical Care Note
Total Time (30-74mins, 75-104mins- exclusive of procedures): Not Applicable
ED Attending Note
-
Portions of this chart may have been created with voice recognition software.� Occasional wrong word or��sound alike� substitutions may have occurred due to the inherent limitations of voice recognition software.
Discharge Plan
Departure
Patient Disposition: Admit
Date of Disposition: 08/25/24
Time of Disposition: 12:44
Admit to: Med/Surg
Presentation/result/management discussed w/ accepting MD/DO: Hospitalist
Discharge Problem:
Pancreatitis, Acute dehydration
Prescriptions:
No Action
aspirin 81 MG tablet,delayed release (DR/EC)
81 mg PO HS
atorvastatin 80 MG tablet
80 mg PO DAILY
glimepiride 2 mg Tablet
2 mg PO DAILY
pyridostigmine bromide 60 mg tablet
30 mg PO BID
pantoprazole [Protonix] 40 mg tablet,delayed release (DR/EC)
40 mg PO DAILY
Rx Instructions:
as before -not a new medication
amlodipine 5 mg Tablet
5 mg PO DAILY Qty: 30 0RF
ondansetron 4 mg tablet,disintegrating
4 mg PO Q8HPRN PRN (Reason: nausea and vomiting)
prucalopride [Motegrity] 2 mg tablet
2 mg PO HS
Xifaxan 550 mg Tablet
550 mg PO DAILY 30 Days Qty: 30 0RF
prednisone 5 mg tablet
5 mg PO DAILY 21 Days Qty: 21 0RF
Rx Instructions:
Take 30mg for seven days,
25mg for seven days,
20mg for seven days and see Cake Winder
Referrals:
Tamara Bell MD [Family Provider] -
Interventions
Interventions:
*Risk Screen - Suicide Last Done: 08/25/24 09:00
*General Assessment Last Done: 08/25/24 11:56
*Neglect/Abuse Screening Last Done: 08/25/24 09:00
ED- Fall Risk Assessment Last Done: 08/25/24 11:56
*ED COVID-19 Vaccine History Last Done: 08/25/24 11:56
EH-Bglamg-Xtclwrkajt Assessment Last Done: 08/25/24 11:56
Discharge Date and Time
Print Language: SLOVAK
[2024-08-25] MEDS: DILAUDID 1 MG IV ×2 (10:35→18:08)
[2024-08-25] MEDS: NSS 1000 IV ×2 (10:35→15:25)
[2024-08-25] MEDS: ZOFRAN 4 MG IV ×2 (10:35→19:00)
[2024-08-25] MEDS: PEPCID 20 MG IV (10:36)
[2024-08-25 10:48] LABS: ALT (SGPT) 26 U/L (0-50); AST (SGOT) 24 U/L (17-59); Albumin 4.4 g/dl (3.5-5.0); Alkaline Phosphatase 75 U/L (38-126); Blood Urea Nitrogen 37 mg/dl (9-20); Carbon Dioxide 24 mmol/L (22-30); Chloride 106 mmol/L (98-107); Glucose 107 mg/dl (70-99); Lipase 507 U/L (23-300); Potassium 3.9 mmol/L (3.5-5.1); Sodium 142 mmol/L (135-145); Total Bilirubin 0.7 mg/dl (0.2-1.3); Total Protein 6.8 g/dl (6.3-8.2); eGFR > 60.00
[2024-08-25 11:18] LABS: % Basophils 0.2 % (0-2); % Eosinophils 0.2 % (0-6); % Immature Granulocytes 0.8 % (0-0.5); % Lymphocytes 6.4 % (20.5-51.1); % Monocytes 7.3 % (1.7-9.3); % Neutrophils 85.1 % (42.2-75.2); Absolute Eosinophils 0.1 10^3/uL (0-0.7); Absolute Immature Granulocytes 0.2 10^3/uL (0-0.05); Absolute Lymphocytes 1.7 10^3/uL (1.2-3.4); Absolute Monocytes 1.9 10^3/uL (0.1-0.6); Absolute Neutrophils 22.3 10^3/uL (1.4-6.5); Hematocrit 36.1 % (39.0-52.0); Hemoglobin 11.5 g/dL (13.0-18.0); Mean Corp Hgb Conc. 31.9 g/dL (33.0-37.0); Mean Corpuscular Hgb 24.9 pg (27.0-31.0); Mean Corpuscular Volume 78.1 fL (80.0-94.0); Mean Platelet Volume 9.2 fL (7.4-10.4); Nucleated Red Blood Cells % 0 % (-); Platelet Count 357 10^3/uL (130-400); Red Blood Cell Count 4.62 10^6/uL (4.70-6.10); Red Cell Dist. Width 17.3 % (11.5-14.5); White Blood Cell Count 26.2 10^3/uL (4.8-10.8)
--- NOTE | 2024-08-25 14:06 | HPS.HSE ---
Addendum entered and electronically signed by Jo-Ann Hawthorne MD 08/25/24 14:48:
I personally performed a history and physical exam of the patient and discussed management with the resident. I reviewed the resident's note and agree with the documented findings and plan of care HPI/CC.
A/P:
# Acute Gastritis, likely secondary to steroid use
# Nausea/Vomiting likely due to above and insetting of chronic scleroderma and pancreatitis
CT Abd/Pelvis demonstrated gastritis & esophagitis
Lipase mildly elevated at 500s, hence felt less likely acute pancreatitis.
Will keep NPO as patient is not comfortable attempting to eat at this time
c/w IV dilaudid for pain, avoid NSAIDs due to gastritis.
IVFs 100ccs/hr, IV zofran as needed for nausea.
Start IV Protonix BID.
Will accelerate prednisone taper from 30mg to 25mg now, pending discussion with Certified Scrum Master.
GI consult
# Leukocytosis likely 2/2 steroid
he is non-toxic appearing and afebrile.
# T12 Burst fracture
no new back pain or neurologic symptoms at this point.
# Scleroderma w/ chronic SIBO - Continue home medications as tolerated
# Hx of SBO
# Suspected Pulmonary fibrosis - saturating well, will monitor to keep O2 sats >88%
# ASCVD/Hx of DC s/p Stenting - hold aspirin in setting of gastritis
# Hypertension - C/w home amlodipine
# Hyperlipidemia - c/w Atorvastatin
# DMT2 - c/w home glimepiride
DVT PPx - Lovenox SC
Code Status - Full Code
�
Original Note:
Family Physician
-
Family Physician: Tamara Bell
Chief Complaint
-
Abdominal Pain, Nausea. Vomiting
History of Present Illness
Abdiaziz Wing is a 74 year old male with a past medical history of scleroderma with complications of chronic SBO, SIBO, suspected pulmonary fibrosis, subacute T12 burst fracture, chronic pancreatitis, CAD, History of DC s/p cardiac stenting,
hypertension, hyperlipidemia, DMT2 who presented to the [facility] for complaints of abdominal pain, nausea and vomiting.
Patient was discharged from on 08/20/24. He states that since discharge he remained constipated until yesterday morning (08/24/2024). In the morning he had a large, painless, nonbloody bowel movement. He felt well and continued to eat throughout
the day, having chicken and rice to keep to his low residue diet. However, in the evening on Sunday he began to feel nauseous and had an episode of NBNB vomiting. He could feel himself becoming 'sick' and brought himself to the ED. He reports to
fevers, chills, no sick contacts, no medication changes. He was taking 30mg prednisone taper as directed on discharge, as well as protonix daily.
While in the ED he received a 1L bolus of NS as well as Zofran & Dilaudid.
Medical History
Past Medical History
Past Medical History: Reports GERD, HTN and Hypercholesterolemia
Additional Past Medical History:
Rest see HPI
Past Surgical History: Reports Other
Additional Past Surgical History:
Cholecystectomy, Cardiac Catheter PCI of LCX, CARLOS ALBERTO placement proximal LAD, RCA (2014)
Social History
Tobacco: Non-smoker
Alcohol: None
Drug: None
Family History
Family History: Not pertinent
Allergies / Home Medications
Allergies reflects when Allergies were last updated in [facility].
Home Medications with original date entered in [facility]
Allergy/Medication List:
Allergies
Allergy/AdvReac Type Severity Reaction Status Date / Time
No Known Allergies Allergy Verified 08/25/24 09:00
Home Medications
aspirin 81 mg tablet,delayed release 81 mg PO HS Blood clot prevention/tx 06/28/20
atorvastatin 80 mg tablet 80 mg PO DAILY High cholesterol 06/28/20
glimepiride 2 mg tablet 2 mg PO DAILY Diabetes 02/08/22
pyridostigmine bromide 60 mg tablet 30 mg PO BID Neurological Condition 03/19/23
pantoprazole 40 mg tablet,delayed release (Protonix) 40 mg PO DAILY GERD 02/29/24
amlodipine 5 mg tablet 5 mg PO DAILY blood pressure #30 tabs 08/12/24
prucalopride 2 mg tablet (Motegrity) 2 mg PO HS Constipation 08/18/24
prednisone 5 mg tablet 0 mg PO DAILY Anti-Inflammatory 08/25/24
rifaximin 550 mg tablet (Xifaxan) 275 mg PO DAILY Gastrointestinal issue 08/25/24
Review of Systems
-
History Source: Patient
A 12 point ROS was completed and negative except as noted: Yes
Constitutional: Reports Weight Loss; Denies Fever, Night Sweats or Chills
EENT: Denies Sore Throat or Runny Nose
Respiratory: Denies Cough, Hemoptysis or Trouble Breathing
Cardiac: Denies Chest Pain, Diaphoresis or Palpitations
Abdomen/GI: Reports Abdominal Pain, Nausea, Vomiting and Diarrhea; Denies Bloody Stools
: Denies Frequency or Urgency
Musculoskeletal: Denies Joint Pain, Joint Swelling or Muscle Pain
Skin: Reports No Symptoms
Neurological: Denies Headache, Weakness or Numbness
Endocrine: Denies Polyuria or Polydipsia
Hematologic/Lymphatic: Denies Bleeding or Bruising
Psych: Reports See HPI
Physical Exam
Vital Signs
Vital Signs
Temp Pulse Resp BP Pulse Ox
99 F 79 11 140/102 100
08/25/24 09:00 08/25/24 12:12 08/25/24 12:12 08/25/24 12:11 08/25/24 09:00
Physical Exam
General: Well Developed, Well Nourished, Conversant, Pain and Appears Chronically Ill; No Respiratory Distress
HEENT: NormoCephalic, Anicteric, Moist mucous membranes, PERRLA and [place] Conjunctivae
Respiratory: Clear; No Wheezes, Rales or Rhonchi
Cardiac: S1/S2 and Regular Rhythm; No Tachycardia, Murmur or Rub
Breast: N/A
GI: Soft, Non Tender, Non Distended, Normal Bowel Sounds and Other (s/p 1mg Dilaudid)
Genito-urinary: Deferred by me
Musculoskeletal: No Clubbing, No Cyanosis and No Edema
Skin: Warm and Dry
Neuro: AO x 3 and Nonfocal/grossly intact
Laboratory Results
-
08/25/24 10:28
08/25/24 10:
Laboratory Results
Total Bilirubin 0.7 mg/dl (0.2-1.3) 08/25/24 10:
AST 24 U/L (17-59) 08/25/24 10:
ALT 26 U/L (0-50) 08/25/24 10:
Alkaline Phosphatase 75 U/L (38-126) 08/25/24 10:
Lipase 507 U/L (23-300) H 08/25/24 10:28
Impression/Plan
-
74 year old male with PMHx of scleroderma with complications of chronic SBO, SIBO, suspected pulmonary fibrosis, subacute T12 burst fracture, chronic pancreatitis, CAD, History of DC s/p cardiac stenting, hypertension, hyperlipidemia, DMT2
#Acute Gastritis, likely iatrogenic secondary to steroid use
#Nausea/Vomiting
- CT Abd/Pelvis demonstrated gastritis & esophagitis, Lipase mildly elevated into 500s, less suggestive of acute pancreatitis.
- Will keep NPO as patient is not comfortable attempting to eat at this time
- c/w IV dilaudid for pain, avoid NSAIDs due to gastritis. Will c/w IVFs 100ccs/hr, IV zofran as needed for nausea. Start IV Protonix BID.
- will accelerate prednisone taper from 30mg to 25mg now, pending discussion with Certified Scrum Master. patient states he is very sensitive to steroids, he may need a much lower stress dose.
- GI consult
#Leukocytosis - Leukocytosis interpretation is unhelpful considering steroid use, however he is afebrile. No clear source of infection.
#T12 Burst fracture - has no back pain or neurologic symptoms at this point. Will continue to monitor. patient currently on pain meds for severe abdominal pain.
#Scleroderma w/ chronic SIBO - Continue home medications as tolerated
#Hx of SBO
#Suspected Pulmonary fibrosis - saturating well, will monitor to keep O2 sats >88%
#ASCVD/Hx of DC s/p Stenting - hold aspirin in setting of gastritis
#Hypertension - C/w home amlodipine
#Hyperlipidemia - c/w Atorvastatin
#DMT2 - c/w home glimepiride
Diet - NPO
DVT PPx - Lovenox SC
Code Status - Full Code
[2024-08-25 14:49] LABS: Triglycerides 169 mg/dl (10-149)
--- NOTE | 2024-08-25 16:00 | CON.GI ---
Consultation
-
Date/Time Consultation Requested: 08/25/2024, 3:10pm
Date/Time Consultation Performed: 08/25/2024, 4pm
Requesting Provider: Dr. Nelson
Performing Provider: Dr. Bowles
Reason for Consultation: n/v
Medical History
Chief Complaint / HPI
Chief Complaint: n/v/constipation/diarrhea
History of Present Illness:
Mr. Wing is well-known to our practice with history of scleroderma and SIBO and follows with Dr. Esparza outpatient. He was most recently admitted July 20 with vomiting and diarrhea as well as a fall. He underwent upper endoscopy at that
time as below. He had a prolonged hospital course and was discharged August 13. He was then readmitted August 17 with shortness of breath and change in bowel habits and numbness. He was discharged again August 20. Patient now is presenting
with nausea and vomiting in the setting of constipation. He had a large bowel movement yesterday after being constipated. He started feeling nauseous yesterday as well and had episode of vomiting. He underwent a CT scan which showed mild
thickening in the stomach consistent with gastritis, fluid-filled esophagus consistent with esophagitis and possible esophageal dysmotility, diverticulosis, chronic moderate compression fracture of the T12 vertebral body. He is currently on
steroids due to her T12 burst fracture.
Admitted now after being constipated x3 days then had subsequent diarrhea multiple episodes 4-6 BM/overnight. nausea/vomiting mutiple times
Past Medical History
Past Medical History: Other (SIBO ASCVD GERD Hypertension DM-II Scleroderma suspected pulm fibrosis subacute T12 burst fx chronic panc CAD IA)
Past Surgical History: Other (Cardiac stent x6 Cholecystectomy)
Social History
Tobacco: Non-Smoker
Alcohol: None
Family History
Family History: Reviewed & Not Pertinent
Allergies / Home Medications
Allergy/AdvReac Type Severity Reaction Status Date / Time
No Known Allergies Allergy Verified 08/25/24 09:00
�Medication �Instructions �Recorded
aspirin 81 mg tablet,delayed 81 mg PO HS Blood clot 06/28/20
release prevention/tx
atorvastatin 80 mg tablet 80 mg PO DAILY High cholesterol 06/28/20
glimepiride 2 mg tablet 2 mg PO DAILY Diabetes 02/08/22
pyridostigmine bromide 60 mg tablet 30 mg PO BID Neurological Condition 03/19/23
pantoprazole 40 mg tablet,delayed 40 mg PO DAILY GERD 02/29/24
release (Protonix)
amlodipine 5 mg tablet 5 mg PO DAILY blood pressure #30 08/12/24
tabs
prucalopride 2 mg tablet 2 mg PO HS Constipation 08/18/24
(Motegrity)
prednisone 5 mg tablet 0 mg PO DAILY Anti-Inflammatory 08/25/24
rifaximin 550 mg tablet (Xifaxan) 275 mg PO DAILY Gastrointestinal 08/25/24
issue
Review of Systems
-
All other systems: A 12 pt ROS was Negative except as stated above in HPI
Vital Signs
Temp Pulse Resp BP Pulse Ox
97.6 F 67 18 164/77 98
08/25/24 15:24 08/25/24 15:24 08/25/24 15:24 08/25/24 15:24 08/25/24 15:24
Physical Exam
Exam
General: Well Developed
HEENT: Normocephalic and Other (eyes protruding)
Respiratory: Clear
Cardiac: HJR
GI: Non Tender and Non Distended
Musculoskeletal: No Clubbing
Skin: Warm
Neuro: AO x 3
Hematologic/Lymphatic: No Lymphadenopathy
Psych: Calm
Results
WBC 26.2 10^3/uL (4.8-10.8) H 08/25/24 10:28
Hgb 11.5 g/dL (13.0-18.0) L 08/25/24 10:28
Hct 36.1 % (39.0-52.0) L 08/25/24 10:28
MCV 78.1 fL (80.0-94.0) L 08/25/24 10:28
Plt Count 357 10^3/uL (130-400) 08/25/24 10:28
Absolute Neuts (auto) 22.3 10^3/uL (1.4-6.5) H 08/25/24 10:28
Sodium 142 mmol/L (135-145) 08/25/24 10:
Potassium 3.9 mmol/L (3.5-5.1) 08/25/24 10:28
Chloride 106 mmol/L (98-107) 08/25/24 10:28
Carbon Dioxide 24 mmol/L (22-30) 08/25/24 10:28
BUN 37 mg/dl (9-20) H 08/25/24 10:28
Creatinine 1.2 mg/dL (0.7-1.3) 08/25/24 10:
Calcium 9.0 mg/dl (8.4-10.2) 08/25/24 10:28
Total Bilirubin 0.7 mg/dl (0.2-1.3) 08/25/24 10:28
AST 24 U/L (17-59) 08/25/24 10:28
ALT 26 U/L (0-50) 08/25/24 10:28
Alkaline Phosphatase 75 U/L (38-126) 08/25/24 10:28
Lipase 507 U/L (23-300) H 08/25/24 10:28
Diagnostic Image Results:
Prior GI Procedures:
EGD: Dr. Alonzo 07/29/2024 normal esophagus, fluid in the mid esophagus, irregular Z-line biopsies taken, gastric polyps, small amount of food in the stomach, small amount of food residual in the duodenum. Pathology showed no intestinal metaplasia
at the GE junction biopsies.
Colonoscopy:
Assessment / Plan
-
74-year-old male with history of scleroderma, SIBO, multiple pseudo bowel obstruction in the past - follows with Dr. Esparza/Dr. Jacome at [facility] (he was taking rifaximin/Motegrity, pyridostigmine regime).
-- Small bowel obstruction/history of chronic pseudoobstruction with dysmotility.
-- History of scleroderma/ SIBO
CT negative for obstruction
Suspect was constipation with overflow +/-dysmotiltiy
Pt also on steroids for his T12 fracture
Recommendations:
- increase xifaxan to 550 tid
- continue mestinon 30 mg bid
- hold motegrity 2 mg for now
- clears tomorrow if continues to do well
- stool studies low suspicion for infection
- minimize narcotics
- I d/w Dr. Esparza who reached out to Dr. Jacome who was able to push up patient appt to 09/12 at 12pm - please rely to patient tomorrow
-
-
Thank you for consultation and allowing me to participate in the patient's care. Please call the store consultant GI physician during the after hours with any questions or concerns.
[2024-08-25] MEDS: LOVENOX 40 MG SC (17:55)
[2024-08-25] MEDS: MESTINON PO (20:40)
[2024-08-25] MEDS: NSS (PRESERVATIVE FREE) 10 ML IV (20:43)
[2024-08-25] MEDS: PROTONIX IV 40 MG IV (20:44)
--- NOTE | 2024-08-25 22:35 | PTCARENOTE ---
Pt refusing scheduled PO meds 2/2 nausea. OOB to BR w/min assist. States back brace not necessary for short distance. Offers no complaints. #20 RAC w/NSS at 100 mL/hr. Call reyes within reach able to make needs known.
[2024-08-26] MEDS: NSS 1000 IV (01:32)
--- NOTE | 2024-08-26 06:17 | W.PN.HOSP.TC ---
Addendum entered and electronically signed by Mora Cerda MD 08/26/24 15:20:
I saw and evaluated the patient independently. I reviewed the resident�s note and agree with findings and plan as documented by Dr. Nelson.
GENERAL: well developed, well nourished, male in no apparent distress
HEENT: NC/AT
HEART: regular rate and rhythm, +S1, +S2
LUNGS : clear to auscultation bilaterally
ABDOM: soft, nontender, nondistended, + bowel sounds
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
NEUROLOGIC: grossly intact
Acute Gastritis, likely iatrogenic secondary to steroid use with associated nausea/vomiting-- CT Abd/Pelvis demonstrated gastritis & esophagitis, Lipase mildly elevated into 500s, less suggestive of acute pancreatitis--c/w IV dilaudid for pain,
continue to avoid NSAIDs due to gastritis. D/c IVF-- IV Zofran prn for nausea. c/w IV Protonix BID-- Discussed with patient's Rheum, agreed to reduce steroid use as much as possible in this patient; start prednisone 20 today, taper back to 5 within
a week if tolerated-- GI following; hold Motegrity, minimize narcotic pain medication. Suggested TID Xifaxan, however pt reports significant intolerance at that dose, agreed w/ GI to take BID until appt w/ Dr. Jacome to review meds, or if he
develops multiple days of diarrhea---tolerated low residue diet--OK for d/c
Leukocytosis - Leukocytosis interpretation is unhelpful considering steroid use, however he is afebrile. No clear source of infection.
T12 Burst fracture - has no back pain or neurologic symptoms at this point. Will continue to monitor. Will add lidocaine patch prn.
Scleroderma w/ chronic SIBO and hx SBO - Continue home medications as tolerated
Suspected Pulmonary fibrosis - saturating well, will monitor to keep O2 sats >88%
ASCVD/Hx of [place] s/p Stenting - hold aspirin in setting of gastritis
Essential Hypertension - C/w home amlodipine
Hyperlipidemia - c/w Atorvastatin
DMT2 - c/w home glimepiride
Hx gout--no acute issues
anemia of chronic disease--no need for transfusion this admission
History of CAD status post prior coronary stents-continue with aspirin.
code status --Full code
Original Note:
Today's Communication/Plan
-
CLD, then low residue. If tolerating, can be discharged with new steroid taper and appt with Dr. Jacome.
Assessment / Plan
Assessment / Plan
74 year old male with PMHx of scleroderma with complications of chronic SBO, SIBO, suspected pulmonary fibrosis, subacute T12 burst fracture, chronic pancreatitis, CAD, History of [place] s/p cardiac stenting, hypertension, hyperlipidemia, DMT2
#Acute Gastritis, likely iatrogenic secondary to steroid use
#Nausea/Vomiting
- CT Abd/Pelvis demonstrated gastritis & esophagitis, Lipase mildly elevated into 500s, less suggestive of acute pancreatitis.
- c/w IV dilaudid for pain, will drop to 0.5, continue to avoid NSAIDs due to gastritis. D/c IVF --> CLD. IV zofran prn for nausea. c/w IV Protonix BID.
- Discussed with patient's Rheum, agreed to reduce steroid use as much as possible in this patient; start prednisone 20 today, taper back to 5 within a week if tolerated.
- GI following; hold motegrity, minimize narcotic pain medication. Suggested TID Xifaxan, however pt reports significant intolerance at that dose, agreed w/ GI to take BID until appt w/ Dr. Jacome to review meds, or if he develops multiple days of
diarrhea.
- Advance to CLD for brkfst, if tolerating, will do Low residue for lunch w/ possible discharge in afternoon.
#Leukocytosis - Leukocytosis interpretation is unhelpful considering steroid use, however he is afebrile. No clear source of infection.
#T12 Burst fracture - has no back pain or neurologic symptoms at this point. Will continue to monitor. Will add lidocaine patch prn.
#Scleroderma w/ chronic SIBO - Continue home medications as tolerated
#Hx of SBO
#Suspected Pulmonary fibrosis - saturating well, will monitor to keep O2 sats >88%
#ASCVD/Hx of [place] s/p Stenting - hold aspirin in setting of gastritis
#Hypertension - C/w home amlodipine
#Hyperlipidemia - c/w Atorvastatin
#DMT2 - c/w home glimepiride
Diet - NPO
DVT PPx - Lovenox SC
Code Status - Full Code
Anticipated Discharge: 24 - 48 hours
Subjective/Interval History
-
No new nausea or vomiting. Abdominal pain resolved.
Objective Data
-
Labs:
Laboratory Results
08/26/24
06:00
WBC Pending
Hgb Pending
Hct Pending
Plt Count Pending
Sodium Pending
Potassium Pending
Chloride Pending
Carbon Dioxide Pending
BUN Pending
Creatinine Pending
Glucose Pending
Calcium Pending
Total Bilirubin Pending
AST Pending
ALT Pending
Alkaline Phosphatase Pending
Vital Signs:
Vital Signs
Temp Pulse Resp BP Pulse Ox
97.8 F 70 16 128/75 98
08/25/24 23:15 08/25/24 23:15 08/25/24 23:15 08/25/24 23:15 08/26/24 02:10
I&O
08/24/24 08/25/24 08/26/24
06:59 06:59 06:59
Intake Total 1200 / 1200
Balance 1200 / 1200
Review of Systems
-
History Source: Patient
All other systems: Reviewed and negative
Constitutional: Reports No Symptoms
EENT: Reports No Symptoms Reported
Respiratory: Reports No Symptoms
Cardiac: Reports No Symptoms
Abdomen/GI: Reports No Symptoms
Breast: Reports N/A
Genitourinary: Reports No Symptoms
Musculoskeletal: Reports No Symptoms
Neuro: Reports No Symptoms
Physical Exam
-
General: Well Developed, Well Nourished, No Apparent Distress, Comfortable and Appears Chronically Ill
HEENT: Normocephalic, Atraumatic, Moist Mucous Membranes, Anicteric, [place] Conjunctivae, PERRLA, Nose Appears Normal and Ears Appear Normal
Respiratory: Clear to Auscultation; Negative Wheezes, Rales or Rhonchi
Cardiac: Regular Rhythm and S1/S2; Negative Murmur or Rub
Breast: N/A
GI: Soft, Nontender, Nondistended and Normal Bowel Sounds (hypoactive bowel sounds)
Genito-urinary: Deferred by me
Musculoskeletal: No Clubbing, No Cyanosis and No Edema
Neuro: AO x 3 and Nonfocal/Grossly Intact
[2024-08-26 07:50] VITALS: BP 142/75
--- NOTE | 2024-08-26 08:09 | W.PN.GI.CBS2 ---
Today's Communication / Plan
-
Advance diet to low-fiber, low-residue diet this AM. Notes marked improvement of symptoms and felt to be steroid related. If able to have a BM would still send stool studies, but doubt infectious etiology. Has close follow-up as an outpatient with
Dr. Jacome. GI team will sign-off, please recontact if any other questions or concerns.
Assessment / Plan
-
74-year-old male with history of scleroderma, SIBO, multiple pseudo bowel obstruction in the past - follows with Dr. Esparza/Dr. Jacome at [facility] (he was taking rifaximin/Motegrity, pyridostigmine regime).
-- Small bowel obstruction/history of chronic pseudoobstruction with dysmotility.
-- History of scleroderma/ SIBO
CT negative for obstruction
Suspect was constipation with overflow +/-dysmotiltiy
Pt also on steroids for his T12 fracture
Recommendations:
- Advance diet to low-residue, low-fiber diet as tolerated. If tolerating, may be discharged later today
- Suspect his prior symptoms may have been steroid-related given timing of symptoms and likely contributing to his leukocytosis
- If able to have a BM, would still send stool studies but does not need to delay discharge
- Favor increased Rifaxmin to 550 mg TiD for 2 weeks and then can de-escalate back to his regular dose (takes every other day)
- Continue mestinon 30 mg bid
- Hold motegrity 2 mg for now, may restart after discharge
- Minimize narcotics
- Had close outpatient f/u with Dr. Jacome who was able to push up patient appt to 09/12 at 12pm at [facility]
- Rest of care per primary team
Discussed with internal medicine this AM. GI team will sign-off, please recontact with any questions or concerns.
Subjective
Subjective
Date of Service: August 26, 2024
- No acute events overnight
Feeling better this afternoon, no further abdominal pain or nausea/vomiting. No further loose stools or diarrhea this AM. Furthermore, hoping to go home today. Discussed with patient regarding his sooner f/u with Dr. Jacome at [facility] on 09/12. He
believes his previous symptoms were due to steroids.
Objective
Data Reviewed
Laboratory Data:
Laboratory Results
Total Bilirubin 0.7 mg/dl (0.2-1.3) 08/25/24 10:28
AST 24 U/L (17-59) 08/25/24 10:28
ALT 26 U/L (0-50) 08/25/24 10:28
Alkaline Phosphatase 75 U/L (38-126) 08/25/24 10:28
Lipase 507 U/L (23-300) H 08/25/24 10:28
Vital Signs and I&O:
Vital Signs
Temp Pulse Resp BP Pulse Ox
98.1 F 70 16 142/75 98
08/26/24 07:50 08/26/24 07:50 08/26/24 07:50 08/26/24 07:50 08/26/24 07:50
I&O
08/25/24 08/26/24 08/27/24
06:59 06:59 06:59
Intake Total 1200 / 1200
Balance 1200 / 1200
Physical Exam
Physical Exam
HEENT: Anicteric and Moist mucous membranes
Cardiology: Normal Sinus Rhythm
Pulmonary: Clear and Other (Normal WOB on room air)
GI: Soft, Non Distended and Non Tender
Extremities: No Edema
Neuro: Non Focal
--- NOTE | 2024-08-26 08:12 | VNURNOTE ---
Chart reviewed. Patient is current with [facility] nursing, PT. Will continue to follow hospital course and DC plans.
[2024-08-26 08:53] LABS: ALT (SGPT) 21 U/L (0-50); AST (SGOT) 18 U/L (17-59); Albumin 3.6 g/dl (3.5-5.0); Alkaline Phosphatase 84 U/L (38-126); Blood Urea Nitrogen 23 mg/dl (9-20); Calcium 8.1 mg/dl (8.4-10.2); Carbon Dioxide 21 mmol/L (22-30); Chloride 108 mmol/L (98-107); Estimated Creatinine Clearance 64 ml/min; Glucose 67 mg/dl (70-99); Potassium 4.1 mmol/L (3.5-5.1); Sodium 139 mmol/L (135-145); Total Bilirubin 0.8 mg/dl (0.2-1.3); Total Protein 5.7 g/dl (6.3-8.2); eGFR > 60.00
[2024-08-26] MEDS: CARAFATE 1 GRAM PO ×2 (08:53→11:50)
[2024-08-26 09:12] LABS: % Basophils 0.1 % (0-2); % Eosinophils 1.7 % (0-6); % Immature Granulocytes 0.7 % (0-0.5); % Lymphocytes 9.8 % (20.5-51.1); % Monocytes 6.3 % (1.7-9.3); % Neutrophils 81.4 % (42.2-75.2); Absolute Eosinophils 0.3 10^3/uL (0-0.7); Absolute Immature Granulocytes 0.1 10^3/uL (0-0.05); Absolute Lymphocytes 1.5 10^3/uL (1.2-3.4); Absolute Neutrophils 12.6 10^3/uL (1.4-6.5); Hematocrit 33.8 % (39.0-52.0); Hemoglobin 10.8 g/dL (13.0-18.0); Mean Corpuscular Hgb 25.1 pg (27.0-31.0); Mean Corpuscular Volume 78.6 fL (80.0-94.0); Mean Platelet Volume 9.6 fL (7.4-10.4); Nucleated Red Blood Cells % 0 % (-); Platelet Count 233 10^3/uL (130-400); Red Cell Dist. Width 17.2 % (11.5-14.5); White Blood Cell Count 15.5 10^3/uL (4.8-10.8)
[2024-08-26 10:36] VITALS: BMI 19.1
--- NOTE | 2024-08-26 12:35 | PTCARENOTE ---
pt aaox3. states no nausea or pain. wanting to eat. lunch ordered.
[2024-08-26] MEDS: MESTINON 30 MG PO (13:23)
[2024-08-26] MEDS: DELTASONE 20 MG PO (13:23)
[2024-08-26] MEDS: PROTONIX IV 40 MG IV (13:23)
[2024-08-26] MEDS: NSS (PRESERVATIVE FREE) 10 ML IV (13:23)
--- NOTE | 2024-08-26 13:55 | VNURNOTE ---
[facility] liaison spoke with patient at bedside. He is declining further VN visits stating he is planning on returning to work after DC. He will no longer be homebound. Patient is aware that if status changes and he becomes homebound again, he can
reach out to PCP to re-order [facility]. Liaison updated [facility] Intake and director of casework services.
--- NOTE | 2024-08-26 14:23 | W.DCSUMMARY ---
Addendum entered and electronically signed by Mora Cerda MD 08/26/24 20:16:
Read, reviewed, and agree. See same day progress note for additional details. Time spent coordinating care, DC planning, review of DC plan of care with resident, transition of care, review of records in EMR, med rec, consults, notes, d/w
consultants, nursing, family, and CM = 38 minutes
Original Note:
Discharge Summary
Discharge Data
Date of Admission: 08/25/24
Date of Discharge: 08/26/24
Total time spent discharging patient (in min): >30m
-
Pending Results: No
Hospital Course
Discharging Physician : Dr. Yasmany Nelson, Dr. Mora Cerda
Disposition : Home
Primary care physician : Tamara Bell
Principal Discharge diagnosis : Acute Gastritis, Nausea, Vomiting
Chronic Discharge diagnosis : T12 burst fracture, Scleroderma w/ chronic SIBO, history of SBO, Suspected pulmonary fibrosis, ASCVD with history of [place] s/p stenting, hypertension, hyperlipidemia, DMT2
Hospital Course :
Abdiaziz Wing presented to [facility] for a bout of diarrhea, nausea and NBNB vomiting which followed a several day period of constipation w/o bowel movements. In the ED he was given dilaudid for pain, Zofran for nausea and IV fluids. A CT of the
abdomen was ordered (full impression below) which demonstrated acute gastroenteritis and esophagitis. Labs demonstrated elevated Lipase into the 500s. He was kept NPO and admitted for fluid resuscitation and supportive care.
Given his lipase levels and CT findings, the episode of nausea and vomiting was felt to be the result of stress dose steroids, rather than pancreatitis. He was seen by GI who recommended he increase his Xifaxan dose and to hold his motegrity. Care
was coordinated with the patient's Community Relations Coordinator Dr. Fowler and his steroid dose was decreased to 20mg with a one week taper back to his home dose of 5mg.
All other chronic medical conditions were managed with home medications and without acute complications.
He was deemed medically stable fr discharge following tolerance of clear liquid diet for breakfast and a low residue lunch. His follow up appointment with Dr. Jacome was moved up to 09/12/24.
Important imaging findings :
CT Abd/pelvis W Iv Cont:
There is mild gastric wall thickening along the gastric antrum with areas of mild wall thickening in the small bowel favored to represent gastroenteritis.
Fluid-filled esophagus with mild circumferential wall thickening and enhancement of the distal esophagus. This likely represents and an element of esophagitis and possible esophageal dysmotility.
Colonic diverticulosis.
Chronic moderate compression fracture of the T12 vertebral body.
Procedure findings : none
Discharge Plan
-
Patient Disposition: Home with Home Care
Discharge Diagnosis/Procedures: Acute Gastritis
Condition: Good
Diet: Low Residue
Activity: As tolerated
Driving Restrictions: As prior to admission
Bathing Restrictions: None
Referrals:
Tamara Bell MD [Family Provider] - in less than 1 week
Additional Discharge Medication Instructions: PREDNISONE TAPER
20mg x2 days
15mg x2 days
10mg x2 days
Resume 5mg home
If tolerated, take 550mg Rifaximin TWICE PER DAY for 2 weeks then reduce to regular home dosing
Prescriptions:
New
prednisone 5 mg tablet
5 mg PO DIRECTED 30 Days Qty: 30 0RF
Rx Instructions:
Take 20mg x2 days, 15mg x2 days, 10mg x2 days, then resume 5mg daily
Continued
aspirin 81 MG tablet,delayed release (DR/EC)
81 mg PO HS
atorvastatin 80 MG tablet
80 mg PO DAILY
glimepiride 2 mg Tablet
2 mg PO DAILY
pyridostigmine bromide 60 mg tablet
30 mg PO BID
pantoprazole [Protonix] 40 mg tablet,delayed release (DR/EC)
40 mg PO DAILY
amlodipine 5 mg Tablet
5 mg PO DAILY Qty: 30 0RF
prucalopride [Motegrity] 2 mg tablet
2 mg PO HS
Xifaxan 550 mg tablet
275 mg PO DAILY
Discontinued
prednisone 5 mg tablet
0 mg PO DAILY
Rx Instructions:
Take 30mg for seven days [last dose 08/26]; 25mg for seven days,
20mg for seven days and see Community Relations Coordinator
Discharge Date and Time
Print Language: WELSH
--- NOTE | 2024-08-26 15:08 | CM ---
Addendum entered by Nicole Grace 08/26/24 15:11:
Patient previously stated that he lives alone in a [address]- 3 steps to enter from the garage. Patient was independent prior to recent hospitalization. Patient has no DME at home. Patient PCP Dr. Bell and he uses the [facility] in [place]. CM will continue to
follow for discharge planning needs.
Original Note:
Patient seen at bedside with physician. Patient states that he will be discharged home with no needs for VN as he plans to return to work. Previous to admission patient was current with [facility]. Patient confirmed no changes in living arrangements and
plan is for discharge home today. CM will continue to follow for discharge planning needs.
Plan; home with no VN at patient request.
[2024-08-26 15:43] VITALS: BP 129/63
== END 2024-08-26 16:33 | disposition home health service (06) | DRG 392 ==
LOC: 1 ACUTE 14:06
PROVIDERS: ADMITTING PHYSICIAN Internal Medicine; ATTENDING PHYSICIAN Internal Medicine; EMERGENCY PHYSICIAN Student in an Organized Health Care Education/Training Program; FAMILY PHYSICIAN Family Medicine; OTHER PHYSICIAN Internal Medicine Gastroenterology
DX: K29.00 Acute gastritis without bleeding (principal); R64 Cachexia; Z68.1 Body mass index [BMI] 19.9 or less, adult; M48.54XA Collapsed vertebra, not elsewhere classified, thoracic region, initial encounter for fracture; E86.0 Dehydration; T38.0X5A Adverse effect of glucocorticoids and synthetic analogues, initial encounter; M34.9 Systemic sclerosis, unspecified; E78.00 Pure hypercholesterolemia, unspecified; I10 Essential (primary) hypertension; I25.10 Atherosclerotic heart disease of native coronary artery without angina pectoris; E11.9 Type 2 diabetes mellitus without complications; D63.8 Anemia in other chronic diseases classified elsewhere; J84.10 Pulmonary fibrosis, unspecified; K21.00 Gastro-esophageal reflux disease with esophagitis, without bleeding; K57.30 Diverticulosis of large intestine without perforation or abscess without bleeding; I25.2 Old myocardial infarction; Z95.5 Presence of coronary angioplasty implant and graft; Z79.84 Long term (current) use of oral hypoglycemic drugs; Z79.82 Long term (current) use of aspirin; Z79.52 Long term (current) use of systemic steroids; Z79.899 Other long term (current) drug therapy
CPT/HCPCS: 74177; 80053; 83690; 84478; 85025; 93005; 96361; 96374; 96375; 99285; Q9967

== ENCOUNTER 2024-09-15 11:32 | Emergency (ER) | payer OTHER, SELFPAY ==
[2024-09-15 11:41] VITALS: BP 144/84
[2024-09-15] MEDS: NSS 1000 IV (14:00)
[2024-09-15] MEDS: ZOFRAN 4 MG IV (14:00)
[2024-09-15 14:01] LABS: % Basophils 0.2 % (0-2); % Eosinophils 0.9 % (0-6); % Immature Granulocytes 0.6 % (0-0.5); % Lymphocytes 4.9 % (20.5-51.1); % Monocytes 7.8 % (1.7-9.3); % Neutrophils 85.6 % (42.2-75.2); Absolute Eosinophils 0.1 10^3/uL (0-0.7); Absolute Immature Granulocytes 0.1 10^3/uL (0-0.05); Absolute Lymphocytes 0.5 10^3/uL (1.2-3.4); Absolute Monocytes 0.8 10^3/uL (0.1-0.6); Absolute Neutrophils 8.3 10^3/uL (1.4-6.5); Hemoglobin 9.6 g/dL (13.0-18.0); Mean Corpuscular Hgb 25.2 pg (27.0-31.0); Mean Corpuscular Volume 78.7 fL (80.0-94.0); Mean Platelet Volume 9.7 fL (7.4-10.4); Nucleated Red Blood Cells % 0 % (-); Platelet Count 294 10^3/uL (130-400); Red Blood Cell Count 3.81 10^6/uL (4.70-6.10); White Blood Cell Count 9.8 10^3/uL (4.8-10.8)
[2024-09-15 14:15] LABS: ALT (SGPT) 43 U/L (0-50); AST (SGOT) 42 U/L (17-59); Albumin 3.6 g/dl (3.5-5.0); Alkaline Phosphatase 69 U/L (38-126); Blood Urea Nitrogen 24 mg/dl (9-20); Calcium 7.4 mg/dl (8.4-10.2); Carbon Dioxide 23 mmol/L (22-30); Chloride 105 mmol/L (98-107); Glucose 112 mg/dl (70-99); Lactic Acid 2.2 mmol/L (0.7-2.0); Lipase 156 U/L (23-300); Potassium 4.1 mmol/L (3.5-5.1); Sodium 139 mmol/L (135-145); eGFR 53.07
[2024-09-15 14:39] VITALS: BP 126/65
--- NOTE | 2024-09-15 15:09 | ED.GENMED ---
History of Present Illness
General
Chief Complaint: Abdominal Symptoms
Source: patient
Exam Limitations: none
Time Seen by Provider: 09/15/24 13:15
Nursing documentation reviewed up to this point in time: agreed with
History of Present Illness
History of Present Illness:
pt is a 74 y/o M with h/o HTN, HLD, scleroderma on prednisone
pancreatitis
chronic abdominal issues, history of small bowel obstruction, history of pancreatitis, history of chronic vomiting postprandial
Has been seen by multiple specialist including GI Dr. Esparza here as well as a doctor at [facility]. He has had endoscopy as recently as which concluded that the patient could have a short segment of Pickard's esophagus but
otherwise benign looking polyps in his stomach and some retained food, he has been on PPI for long time. Patient says despite multiple evaluations and workups and medications they cannot figure out why he vomits he eats. Patient says if he eats a
meal he will ultimately throw it up at some point. It is usually not regurgitation but several hours later. He can tolerate liquids and oral medications. Patient has been very frustrated by this as he has lost a total of about 25 pounds in the
last year. He continues to try to go to work but he does feel weak at times. He comes in today requesting IV fluids because he feels dehydrated. He does not wish to stay in the hospital because he is hopeless that he there will be any progress as
far as a diagnosis. He has not had a fever but did feel chills and he has had that for some time, that comes and goes. He has never had a temperature when he takes his temperature while he is having the chills. Patient denies any significant
diarrhea, black stool, vomiting blood, chest pain or shortness of breath, syncope.Patient has a history of scleroderma and is on prednisone daily and was just hospitalized where they thought that he tapered his steroids too quickly. He
has been able to tolerate his prednisone is down to 5 mg a day and he is not having any diarrhea
He also does not have any abdominal pain
Past History
Past History
ED Past Medical History: CAD, GERD, HTN, Hypercholesterolemia, NIDDM, SC and Other (scleroderma, SBO,, PNA, Pulmonary fibrosis, Gastroporesis)
ED Past Surgical History: Cardiac (Stents X 6) and Cholecystectomy
Social History
Tobacco: Non-smoker
Alcohol: None
Drug: None
Personal:
Living: with family
Employment: Retired
Family History
Family History: CAD
Review of Systems
Review of Systems
Allergies reviewed?: Yes
All Other Systems: Not applicable
Phy Exam
Physical Exam
Physical Exam:
GENERAL: Alert , in no apparent distress sunken cheekbones
EYE: pupils equal and reactive
NECK: Supple
ENT: o/p clr, dry mouth.
CARDIAC: Regular rate and rhythm .
LUNGS: Clear breath sounds bilaterally, no acute respiratory distress, no wheezes/rales/rhonchi
ABDOMEN: Soft, nondistended without focal tenderness, no r/g, no cvat, normal bowel sounds
NEUROLOGICAL: Alert and oriented, no focal neuro deficits
SKIN: Warm and dry, skin intact. Pale
MUSCULOSKELETAL: No edema, well perfused. neg winnie's sign
PSYCH: Normal and appropriate interaction.
Course
Orders/Labs/Results
Orders:
Orders
09/15/24 13:05
IV Insert/Care/Rem.- Treatment PRN
09/15/24 13:45
0.9% Sodium Chloride 1000 ml [Nss] 1,000 ml IV BOLUS
Ondansetron Injectable [Zofran] 4 mg IV NOW STA
09/15/24 13:48
Complete Blood Count/With Diff Urgent
Comprehensive Metabolic Panel Urgent
Lactate Level [Lactic Acid] Urgent
Lipase Urgent
09/15/24 15:21
0.9% Sodium Chloride 500 ml [Nss] 500 ml IV BOLUS
09/15/24 15:29
Lactic Acid Urgent
Abnormal Lab Results
09/15/24
13:48
RBC 3.81 L 10^6/uL
(4.70-6.10)
Hgb 9.6 L g/dL
(13.0-18.0)
Hct 30.0 L %
(39.0-52.0)
MCV 78.7 L fL
(80.0-94.0)
MCH 25.2 L pg
(27.0-31.0)
MCHC 32.0 L g/dL
(33.0-37.0)
RDW 18.0 H %
(11.5-14.5)
Abs Immat Gran (auto) 0.1 H 10^3/uL
(0-0.05)
Absolute Neuts (auto) 8.3 H 10^3/uL
(1.4-6.5)
Absolute Lymphs (auto) 0.5 L 10^3/uL
(1.2-3.4)
Absolute Monos (auto) 0.8 H 10^3/uL
(0.1-0.6)
Immature Gran % 0.6 H %
(0-0.5)
Neutrophils % 85.6 H %
(42.2-75.2)
Lymphocytes % 4.9 L %
(20.5-51.1)
BUN 24 H mg/dl
(9-20)
Creatinine 1.4 H mg/dL
(0.7-1.3)
Glucose 112 H mg/dl
(70-99)
Lactic Acid 2.2 H mmol/L
(0.7-2.0)
Calcium 7.4 L mg/dl
(8.4-10.2)
Total Protein 6.0 L g/dl
(6.3-8.2)
09/15/24 13:48
09/15/24 13:48
Vital Signs
Initial and Last Documented VS:
Initial Vital Signs
Temp Pulse Resp BP Pulse Ox
37.1 C 113 18 144/84 97
09/15/24 11:41 09/15/24 11:41 09/15/24 11:41 09/15/24 11:41 09/15/24 11:41
Last Documented Vital Signs
Temp Pulse Resp BP Pulse Ox
37.1 C 84 18 126/65 98
09/15/24 11:41 09/15/24 14:39 09/15/24 14:39 09/15/24 14:39 09/15/24 14:39
MDM/Problems Addressed
Differential Diagnosis Includes:
Dysphagia, small bowel obstruction, gastritis, malignancy
MDM/Problems Addressed:
74-year-old with chronic vomiting after solids over the last year causing weight loss and weakness presents for feeling dehydrated after he vomited several times yesterday because he tried to eat solids 3 times.
this has been worked up with imaging, recent endoscopy, ct scanse tc
he says he ahsn't started any sort of treatment that has helped so he is pretty apatehtic about being int [facility]
he has had multiple GI doctors for evaluation who haven't found cause
he has lost weight over the past several months
and for the past 3 weeks he seems to be shaking sometimes in the morning
he takes his temp but no fever
he does take steroids daily for scleroderma and hasn't missed doses
was on higher regimen and slowly tapered down to 5
pt hasn't seen his business analysis specialist recently and i feel that he should
but for today's visit he has some dry mouth and looks chroincally frail
abdomen notender
nondistended
normal bowel sounds
passing gas
has had SBO before but this is unlikely this time
stable anemia
cr is 1.4 which is higer than recent but has been as high beforfe
lactate was 2.2 but down to 1.7 after ivf and zofran
pt feels much better and wantes to go home
*Critical Care Note
Total Time (30-74mins, 75-104mins- exclusive of procedures): Not Applicable
ED Attending Note
-
Portions of this chart may have been created with voice recognition software.� Occasional wrong word or��sound alike� substitutions may have occurred due to the inherent limitations of voice recognition software.
Discharge Plan
Departure
Patient Disposition: Home (Routine Discharge)
Date of Disposition: 09/15/24
Time of Disposition: 15:59
Patient with high blood pressure during this ER visit?: No
Condition: Fair
Covid-19: Not Applicable
Discharge Problem:
Vomiting, Dehydration
Instructions: Nausea and Vomiting, Adult (DC)
Prescriptions:
No Action
aspirin 81 MG tablet,delayed release (DR/EC)
81 mg PO HS
atorvastatin 80 MG tablet
80 mg PO DAILY
glimepiride 2 mg Tablet
2 mg PO DAILY
pyridostigmine bromide 60 mg tablet
30 mg PO BID
pantoprazole [Protonix] 40 mg tablet,delayed release (DR/EC)
40 mg PO DAILY
amlodipine 5 mg Tablet
5 mg PO DAILY Qty: 30 0RF
prucalopride [Motegrity] 2 mg tablet
2 mg PO HS
Xifaxan 550 mg tablet
275 mg PO DAILY
prednisone 5 mg tablet
5 mg PO DIRECTED 30 Days Qty: 30 0RF
Rx Instructions:
Take 20mg x2 days, 15mg x2 days, 10mg x2 days, then resume 5mg daily
famotidine [Pepcid] 20 mg tablet
20 mg PO DAILY Qty: 30 0RF
Referrals:
Tamara Bell MD [Family Provider] - Follow up in 2-3 days
Activity Restrictions/Additional Instructions:
You are dehydrated, given IV fluids. Your kidney function is slightly elevated but no higher than it has been previously. I would have a low threshold to return to the hospital if you continue to vomit or feel dehydrated or get any abdominal pain
or distention. You could have another bowel obstruction develop. Return to the ER for any concerns otherwise follow-up with your GI doctor as planned. Make sure that you are taking your prednisone daily.
Interventions
Interventions:
*Risk Screen - Suicide Last Done: 09/15/24 14:02
*General Assessment Last Done: 09/15/24 14:02
*Neglect/Abuse Screening Last Done: 09/15/24 14:02
ED- Fall Risk Assessment Last Done: 09/15/24 14:02
*ED COVID-19 Vaccine History Last Done: 09/15/24 12:47
*Nursing Disposition Last Done: 09/15/24 17:08
GK-Xuclcz-Tyqkrsccgu Assessment Last Done: 09/15/24 14:02
Discharge Date and Time
Discharge Date/Time: 09/15/24 17:08
Print Language: SCOTTISH
[2024-09-15] MEDS: NSS 500 IV (15:26)
[2024-09-15 15:51] LABS: Lactic Acid 1.7 mmol/L (0.7-2.0)
== END 2024-09-15 17:08 | disposition home or self-care (01) ==
LOC: EMR 11:32
PROVIDERS: Emergency Medicine; Physician Assistant; EMERGENCY PHYSICIAN Emergency Medicine; FAMILY PHYSICIAN Family Medicine
DX: E86.0 Dehydration (principal); R11.10 Vomiting, unspecified; I10 Essential (primary) hypertension; E78.00 Pure hypercholesterolemia, unspecified; K21.9 Gastro-esophageal reflux disease without esophagitis; I25.10 Atherosclerotic heart disease of native coronary artery without angina pectoris; D64.9 Anemia, unspecified; M34.9 Systemic sclerosis, unspecified; E11.9 Type 2 diabetes mellitus without complications; Z90.49 Acquired absence of other specified parts of digestive tract; Z95.5 Presence of coronary angioplasty implant and graft; Z79.52 Long term (current) use of systemic steroids
CPT/HCPCS: 96374; 96361; 99284; 80053; 83605; 83690; 85025

== ENCOUNTER 2024-09-16 06:05 | Emergency (ER) | payer OTHER, SELFPAY ==
[2024-09-16 06:08] VITALS: BP 160/108
[2024-09-16 07:54] VITALS: BMI 19.6
[2024-09-16 08:12] VITALS: BP 140/75
[2024-09-16] MEDS: ZOFRAN 4 MG IV (08:19)
[2024-09-16] MEDS: NSS 1000 IV (08:19)
--- NOTE | 2024-09-16 08:20 | ED.GENMED ---
History of Present Illness
General
Chief Complaint: Abdominal Pain
Source: patient and records
Exam Limitations: none
Time Seen by Provider: 09/16/24 08:06
Nursing documentation reviewed up to this point in time: agreed with
History of Present Illness
History of Present Illness:
74-year-old male with a past medical history of hypertension, hyperlipidemia, CAD, GERD, gastroparesis, scleroderma, pulmonary fibrosis who presents to the emergency department for evaluation of nausea, vomiting, abdominal pain. Patient was notably
here yesterday for similar symptoms was seen and treated symptomatically and discharged. He has history of recurrent symptoms over the past few months; he says that symptoms have been attributed to scleroderma and gastroparesis; he has been
following with Dr. Elder at [facility] has also been seen by Dr. Esparza here at [place]. Last endoscopy was in June showed Pickard's esophagus. He says that he felt better after discharge yesterday but went home and started vomiting again
and this morning vomited once and had 'a bad taste in my mouth which always means I am going to vomit again.' He came back to the emergency room. He says he has also had some lower abdominal pain today but he is not sure whether this is related to
the vomiting or if it is due to constipation as he says he has not had a bowel movement about 4 days. He denies any fever but says he has had shakiness/chills this morning. He denies any URI symptoms. Denies any UTI symptoms. He denies any other
complaints. He has tried Reglan for his symptoms which she was prescribed by his GI doctor but he says this did not help. Last dose was this morning prior to coming to the emergency room. Surgical history notable for prior cholecystectomy.
Past History
Past History
ED Past Medical History: CAD, GERD, HTN, Hypercholesterolemia, NIDDM, [place] and Other (scleroderma, SBO,, PNA, Pulmonary fibrosis, Gastroporesis)
ED Past Surgical History: Cardiac (Stents X 6) and Cholecystectomy
Social History
Tobacco: Non-smoker
Alcohol: None
Drug: None
Personal:
Living: with family
Employment: Retired
Family History
Family History: CAD
Review of Systems
Review of Systems
All Other Systems: ROS reviewed and negative except as documented in HPI and ROS
Constitutional: Reports chills; Denies fever
EENT: Denies sore throat or runny nose
Respiratory: Denies cough or trouble breathing
Cardiac: Denies chest pain
ABD/GI: Reports abdominal pain, nausea, vomiting and constipated
: Denies dysuria, frequency or flank pain
Musculoskeletal: Reports back pain (Chronic from T12 fracture); Denies neck pain
Neurological: Denies headache
Phy Exam
Physical Exam
Physical Exam:
General: Awake, alert, oriented x3; no acute distress
Head: Normocephalic, atraumatic
Eyes: Conjunctiva normal, EOMI
Throat: Airway intact, dry mucous membranes
Neck: Trachea midline, supple without meningismus
Lungs: Clear to auscultation bilaterally, no wheezing, rales, rhonchi
Heart: Tachycardia with regular rhythm, no murmurs, gallops, or rubs
Abd: Soft, non distended, tender to palpation across lower abdomen
Neuro: No gross deficit
Extremities: Warm and well-perfused with no edema
Scores
Heart Failure Risk
Heart Failure Risk Score: Not Applicable
Heart Score for Chest Pain Patients
STEMI patient?: Not applicable
Withdrawal Assessment of Alcohol
Withdrawal Assessment Completed?: Not applicable
Course
Orders/Labs/Results
Orders:
Orders
09/16/24 08:07
Lipase Urgent
Ondansetron Injectable [Zofran] 4 mg IV NOW STA
09/16/24 08:08
CT Abd/pelvis W Iv Cont Urgent
Comment:
Reason For Exam: lower abd pain, intractable vomiting
0.9% Sodium Chloride 1000 ml [Nss] 1,000 ml IV BOLUS
09/16/24 08:09
Electrocardiogram (*1) Urgent
Reason for Study: QTc Monitoring
EKG- Treatment ONCE
Complete Blood Count/With Diff Urgent
Comprehensive Metabolic Panel Urgent
Lactate Level [Lactic Acid] Urgent
09/16/24 09:58
Encourage PO Hydration-Treatme ONCE
09/16/24 10:00
Famotidine [Pepcid] 20 mg IV NOW STA
09/16/24 11:07
Urinalysis Reflex To Culture Urgent
Date Specimen was Collected: 09/16/24
Time Specimen was Collected: 08:13
Abnormal Lab Results
09/16/24
08:09
RBC 4.22 L 10^6/uL
(4.70-6.10)
Hgb 10.6 L g/dL
(13.0-18.0)
Hct 33.6 L %
(39.0-52.0)
MCV 79.6 L fL
(80.0-94.0)
MCH 25.1 L pg
(27.0-31.0)
MCHC 31.5 L g/dL
(33.0-37.0)
RDW 18.0 H %
(11.5-14.5)
Abs Immat Gran (auto) 0.1 H 10^3/uL
(0-0.05)
Absolute Neuts (auto) 8.1 H 10^3/uL
(1.4-6.5)
Absolute Lymphs (auto) 0.7 L 10^3/uL
(1.2-3.4)
Immature Gran % 0.6 H %
(0-0.5)
Neutrophils % 83.0 H %
(42.2-75.2)
Lymphocytes % 7.4 L %
(20.5-51.1)
BUN 28 H mg/dl
(9-20)
Creatinine 1.6 H mg/dL
(0.7-1.3)
Calcium 7.1 L mg/dl
(8.4-10.2)
09/16/24 08:09
09/16/24 08:09
Vital Signs
Pulse: 95
Resp Rate: 18
Initial and Last Documented VS:
Initial Vital Signs
Temp Pulse Resp BP Pulse Ox
36.7 C 124 28 160/108 98
09/16/24 06:08 09/16/24 06:08 09/16/24 06:08 09/16/24 06:08 09/16/24 06:08
Last Documented Vital Signs
Temp Pulse Resp BP Pulse Ox
36.7 C 95 28 130/50 98
09/16/24 06:08 09/16/24 10:04 09/16/24 06:08 09/16/24 10:02 09/16/24 09:28
MDM/Problems Addressed
Differential Diagnosis Includes:
GERD, gastroparesis, bowel obstruction, constipation, gastroenteritis
MDM/Problems Addressed:
74-year-old male presents for evaluation of recurrent nausea and vomiting now associated with some lower abdominal pain; seen yesterday for similar. Hypertensive, tachycardic, mild tachypnea. Physical exam as above. Place an IV send labs
including a CBC and a CMP, lipase. Check urinalysis. Will check CT of the abdomen pelvis. Will treat with fluids, Zofran. Check EKG. Reassess after the above.
Labs reviewed: CBC shows stable anemia, CMP shows FLORENCE with a creatinine of 1.6 from a baseline of less than 1. Was given IV fluids here. His CT of the abdomen pelvis shows gastritis but no other acute pathology. He is already on a PPI reasonable
to add an H2 ranjeet. He is feeling much better after symptomatic treatment here. Spoke to the patient given this is his second visit to the ER about potential admission he says he is feeling better and would rather go home. Will trial p.o. and
reassess if he is tolerating p.o. will plan to discharge with GI follow-up as an outpatient.
Patient tolerating p.o. feeling well with stable vitals. Stable for discharge.
Chronic conditions affecting care:
Scleroderma, gastroparesis
Acute Exacerbation and/or Progression of Chronic Illness:
Acutely hypertensive
Acute Exacerbation and/or Progression of Chronic Illness: HTN
*Radiology
Radiology exam reviewed: radiology read reviewed
*Pulse Oximetry
Patient hypoxic: no
*Critical Care Note
Total Time (30-74mins, 75-104mins- exclusive of procedures): Not Applicable
Data Reviewed
Review of Other/Old Records Reveals: Labs, Records, Radiology Studies, Testing and Discharge Summary
Source: patient and records
Patient Management
Escalation/DeEscalation of care consider admission/obs:
Considered admission�shared decision making he was discharged as above
ED Attending Note
-
Portions of this chart may have been created with voice recognition software.� Occasional wrong word or��sound alike� substitutions may have occurred due to the inherent limitations of voice recognition software.
Discharge Plan
Departure
Patient Disposition: Home (Routine Discharge)
Date of Disposition: 09/16/24
Time of Disposition: 11:19
Patient with high blood pressure during this ER visit?: Yes
Discharge Problem:
Gastritis, Acute dehydration, FLORENCE (acute kidney injury)
Instructions: Nausea and Vomiting, Adult (DC), Gastritis (DC), Dehydration in adults - ED discharge instructions
Prescriptions:
New
famotidine [Pepcid] 20 mg tablet
20 mg PO DAILY Qty: 30 0RF
No Action
aspirin 81 MG tablet,delayed release (DR/EC)
81 mg PO HS
atorvastatin 80 MG tablet
80 mg PO DAILY
glimepiride 2 mg Tablet
2 mg PO DAILY
pyridostigmine bromide 60 mg tablet
30 mg PO BID
pantoprazole [Protonix] 40 mg tablet,delayed release (DR/EC)
40 mg PO DAILY
amlodipine 5 mg Tablet
5 mg PO DAILY Qty: 30 0RF
prucalopride [Motegrity] 2 mg tablet
2 mg PO HS
Xifaxan 550 mg tablet
275 mg PO DAILY
prednisone 5 mg tablet
5 mg PO DIRECTED 30 Days Qty: 30 0RF
Rx Instructions:
Take 20mg x2 days, 15mg x2 days, 10mg x2 days, then resume 5mg daily
Referrals:
Tamara Bell MD [Family Provider] -
Activity Restrictions/Additional Instructions:
You should follow-up with your copy messenger as we discussed to follow-up on your emergency room visit today. You should call today or tomorrow morning to make the first available appointment. You should make sure that you are drinking plenty
of fluids and stick to a bland diet. We talked about potentially keeping in the hospital given that this was her second visit; you are feeling better with ER treatment and decided to try and go home. If you feel your symptoms are not manageable at
home you should return to the emergency room. If you develop any new symptoms that are concerning to you return to the emergency room to be reassessed immediately.
Thank you for visiting the Emergency Department at [facility].
1. Please schedule a follow up appointment as directed. Call first thing tomorrow morning to make an appointment.
2. If indicated, please take your medications as instructed and indicated on discharge paperwork.
3. If any of your symptoms do not improve, or persist, or become more severe within 6-12 hours, please return to the emergency department for further care.
4. Please return to the emergency department if you develop a headache, neck pain/stiffness, fever greater than 100.4F, chest pain, shortness of breath, persistent nausea, vomiting, slurred speech, difficulty walking, numbness/tingling, weakness,
signs of infection or any other symptoms that are worrisome to you.
Please call [phone] if you have any questions.
Interventions
Interventions:
*Risk Screen - Suicide Last Done: 09/16/24 06:08
*General Assessment Last Done: 09/16/24 07:54
*Neglect/Abuse Screening Last Done: 09/16/24 06:08
ED- Fall Risk Assessment Last Done: 09/16/24 07:54
*ED COVID-19 Vaccine History Last Done: 09/16/24 07:54
DM-Uhlopg-Xdsjiqykqs Assessment Last Done: 09/16/24 07:54
Discharge Date and Time
Print Language: YI
[2024-09-16 08:22] LABS: % Basophils 0.3 % (0-2); % Eosinophils 2.2 % (0-6); % Immature Granulocytes 0.6 % (0-0.5); % Lymphocytes 7.4 % (20.5-51.1); % Monocytes 6.5 % (1.7-9.3); Absolute Eosinophils 0.2 10^3/uL (0-0.7); Absolute Immature Granulocytes 0.1 10^3/uL (0-0.05); Absolute Lymphocytes 0.7 10^3/uL (1.2-3.4); Absolute Monocytes 0.6 10^3/uL (0.1-0.6); Absolute Neutrophils 8.1 10^3/uL (1.4-6.5); Hematocrit 33.6 % (39.0-52.0); Hemoglobin 10.6 g/dL (13.0-18.0); Mean Corp Hgb Conc. 31.5 g/dL (33.0-37.0); Mean Corpuscular Hgb 25.1 pg (27.0-31.0); Mean Corpuscular Volume 79.6 fL (80.0-94.0); Mean Platelet Volume 9.5 fL (7.4-10.4); Nucleated Red Blood Cells % 0 % (-); Platelet Count 314 10^3/uL (130-400); Red Blood Cell Count 4.22 10^6/uL (4.70-6.10); White Blood Cell Count 9.8 10^3/uL (4.8-10.8)
[2024-09-16 08:35] LABS: ALT (SGPT) 46 U/L (0-50); AST (SGOT) 39 U/L (17-59); Albumin 4.1 g/dl (3.5-5.0); Alkaline Phosphatase 61 U/L (38-126); Blood Urea Nitrogen 28 mg/dl (9-20); Calcium 7.1 mg/dl (8.4-10.2); Carbon Dioxide 24 mmol/L (22-30); Chloride 105 mmol/L (98-107); Estimated Creatinine Clearance 37 ml/min; Glucose 99 mg/dl (70-99); Potassium 4.1 mmol/L (3.5-5.1); Sodium 141 mmol/L (135-145); Total Protein 6.7 g/dl (6.3-8.2); eGFR 45.21
[2024-09-16 09:00] VITALS: BP 156/83
[2024-09-16 10:02] VITALS: BP 130/50
[2024-09-16 11:05] VITALS: BP 128/71
[2024-09-16] MEDS: PEPCID 20 MG IV (11:05)
[2024-09-16 11:19] LABS: Urine Albumin 1+ (Neg - Trace); Urine Bilirubin Negative (Negative); Urine Character Clear (Clear); Urine Color Yellow; Urine Glucose Negative (Negative); Urine Ketone Negative (Negative); Urine Leukocyte Negative (Negative); Urine Nitrite Negative (Negative); Urine Occult Blood 1+ (Negative); Urine Urobilinogen Negative (Neg - 1+)
[2024-09-16 11:46] LABS: Urine Red Blood Cell 0-2 /HPF (0-2); Urine White Cell 0-2 /HPF (0-5)
[2024-09-16 11:52] LABS: Urine Urothelial Cell 0-2 /LPF (FEW)
[2024-09-16 12:02] VITALS: BP 125/72
[2024-09-16 14:39] LABS: Lipase 277 U/L (23-300)
== END 2024-09-16 12:24 | disposition home or self-care (01) ==
LOC: EMR 06:05
PROVIDERS: Emergency Medicine; EMERGENCY PHYSICIAN Emergency Medicine; FAMILY PHYSICIAN Family Medicine
DX: K29.00 Acute gastritis without bleeding (principal); E86.0 Dehydration; N17.9 Acute kidney failure, unspecified; K59.00 Constipation, unspecified; I10 Essential (primary) hypertension; I25.10 Atherosclerotic heart disease of native coronary artery without angina pectoris; E78.00 Pure hypercholesterolemia, unspecified; J84.10 Pulmonary fibrosis, unspecified; K21.9 Gastro-esophageal reflux disease without esophagitis; E11.43 Type 2 diabetes mellitus with diabetic autonomic (poly)neuropathy; M34.9 Systemic sclerosis, unspecified; K31.84 Gastroparesis; I25.2 Old myocardial infarction; Z95.5 Presence of coronary angioplasty implant and graft; Z87.01 Personal history of pneumonia (recurrent); Z87.19 Personal history of other diseases of the digestive system; Z90.49 Acquired absence of other specified parts of digestive tract; Z79.82 Long term (current) use of aspirin
CPT/HCPCS: 99284; 96375; 96361; 96374; 74177; 80053; 81003; 81015; 83605; 83690; 85025; 93005; Q9967

== ENCOUNTER 2024-09-19 01:50 | Inpatient (IN) | payer OTHER, SELFPAY ==
[2024-09-18 22:09] VITALS: BP 135/95
[2024-09-18 22:24] LABS: % Basophils 0.4 % (0-2); % Immature Granulocytes 0.5 % (0-0.5); % Lymphocytes 8.9 % (20.5-51.1); % Monocytes 8.7 % (1.7-9.3); % Neutrophils 79.5 % (42.2-75.2); Absolute Eosinophils 0.2 10^3/uL (0-0.7); Absolute Lymphocytes 0.7 10^3/uL (1.2-3.4); Absolute Monocytes 0.7 10^3/uL (0.1-0.6); Absolute Neutrophils 6.6 10^3/uL (1.4-6.5); Hematocrit 32.9 % (39.0-52.0); Hemoglobin 10.3 g/dL (13.0-18.0); Mean Corp Hgb Conc. 31.3 g/dL (33.0-37.0); Mean Corpuscular Volume 79.9 fL (80.0-94.0); Mean Platelet Volume 8.9 fL (7.4-10.4); Nucleated Red Blood Cells % 0 % (-); Platelet Count 352 10^3/uL (130-400); Red Blood Cell Count 4.12 10^6/uL (4.70-6.10); Red Cell Dist. Width 18.1 % (11.5-14.5); White Blood Cell Count 8.4 10^3/uL (4.8-10.8)
[2024-09-18 22:37] LABS: Lactic Acid 1.7 mmol/L (0.7-2.0)
[2024-09-18 22:42] LABS: ALT (SGPT) 37 U/L (0-50); AST (SGOT) 35 U/L (17-59); Albumin 3.6 g/dl (3.5-5.0); Alkaline Phosphatase 72 U/L (38-126); Blood Urea Nitrogen 17 mg/dl (9-20); Calcium 6.2 mg/dl (8.4-10.2); Carbon Dioxide 26 mmol/L (22-30); Chloride 101 mmol/L (98-107); Glucose 122 mg/dl (70-99); Lipase 174 U/L (23-300); Potassium 3.9 mmol/L (3.5-5.1); Sodium 138 mmol/L (135-145); Total Bilirubin 1.3 mg/dl (0.2-1.3); Total Protein 6.3 g/dl (6.3-8.2); eGFR 58.01
--- NOTE | 2024-09-18 22:59 | ED.GENMED ---
History of Present Illness
General
Chief Complaint: Abdominal Pain
Time Seen by Provider: 09/18/24 22:39
History of Present Illness
History of Present Illness:
74-year-old male presents to the emergency department for evaluation of lower abdominal pain. Contrary to the nursing documentation this is not his third such visit for pain, rather the 2 previous visits earlier this week were for intractable
vomiting. States that gradually over the course of today he has developed worsening right lower quadrant pain as well as generalized weakness. He has had dry heaves but no significant vomiting today. Generally poor p.o. intake over the past
several days. Has a lengthy history of gastroenterological complaints, has followed up with Dr. Esparza at this hospital as well as tertiary care facilities with no definitive diagnosis although there is a suggestion that his systemic scleroderma may
be contributing. Prior abdominal surgery includes cholecystectomy
Past History
Past History
ED Past Medical History: CAD, GERD, HTN, Hypercholesterolemia, NIDDM, PR and Other (scleroderma, SBO,, PNA, Pulmonary fibrosis, Gastroporesis)
ED Past Surgical History: Cardiac (Stents X 6) and Cholecystectomy
Social History
Tobacco: Non-smoker
Alcohol: None
Drug: None
Personal:
Living: with family
Employment: Retired
Family History
Family History: CAD
Review of Systems
Review of Systems
Allergies reviewed?: Yes
All Other Systems: ROS reviewed and negative except as documented in HPI and ROS
Phy Exam
Physical Exam
Physical Exam:
GEN: Thin and frail appearing
HEENT: Oral mucosa moist, no scleral icterus
Cardiac: Tachycardic, regular
Lung: No respiratory distress, no tachypnea
Abdomen: Soft, nondistended, nonrigid, focal tenderness to the right lower quadrant
MSK: No gross deformity or injuries
Skin: Good color, no pallor or jaundice, no rashes
Neuro: AO x3, moves all extremities freely
Psych: Calm, cooperative
Course
Orders/Labs/Results
Orders:
Orders
09/18/24 22:13
EKG [Electrocardiogram (*1)] Urgent
Reason for Study: Abdominal Pain
EKG- Treatment ONCE
09/18/24 22:16
Complete Blood Count/With Diff Urgent
Comprehensive Metabolic Panel Urgent
Lipase Urgent
Magnesium Urgent
Comment: ADD ON
09/18/24 22:19
Lactate Level [Lactic Acid] Urgent
09/18/24 22:52
Add On- LAB Urgent
Tests Added?: magnesium
09/18/24 22:57
CT Abd/Pel (IV only)-DH only Urgent
Comment:
Reason For Exam: RLQ pain/fever
Urinalysis Reflex To Culture Urgent
Calcium Gluconate 1 gram/100mL [Calcium Gluconate] 1 gram in 100 ml IV ONCE
09/18/24 23:13
Magnesium Sulfate 2 Gram/50 ml [Magnesium Sulfate] 2 gram in 50 ml IV NOW
09/18/24 23:33
HYDROmorphone [Dilaudid] 0.5 mg IV NOW STA
09/18/24 23:46
COVID-19 Antigen Urgent
Source: Nasal Swab
Influenza A+B Rapid Molecular Urgent
SEBAS Source: Nasal Swab
Specimen Description:
09/19/24 01:08
Admit/Transfer Patient As Directed
Co-Sign Provider:
Level of Care: Inpatient admission
Assign to:: Telemetry
Physician / Group: Randy
Diagnosis: Hypomagnesemia, Hypocalcemia, N/V
Reason for Telemetry: Arrhythmia
Date to Stop Telemetry: 09/22/24
Time to Stop Telemetry: 11:00
Reason for Hospitalization: Hypomagnesemia, Hypocalcemia, N/V
Expected length of stay greater than two midnights?: Yes
ELOS- Estimated Length of Stay in days: 3
I certify the patient meets the requirements for IP care: Yes
PRN Pain Medication Management As Directed
May give lesser potent ordered pain med per pt: Yes
preference::
Protocol:: Medication orders for pain may be administered in a
manner that supports deferring to patient preference
when the pt is:
- Requesting an ordered lesser potent pain medication.
Least to most potent pain medications are defined
as: acetaminophen < NSAID < tramadol < opioids
(morphine, oxycodone, hydromorphone).
- Requesting a lesser dose of the same medication IF
ORDERED.
- Requesting a less intrusive route of administration
if both routes are prescribed by the provider (PO <
IV).
09/19/24 01:14
Code Status As Directed
Resuscitation Status: Full Code
09/22/24 11:00
DC Protocol for Telemetry ONCE
Abnormal Lab Results
09/18/24
22:16
RBC 4.12 L 10^6/uL
(4.70-6.10)
Hgb 10.3 L g/dL
(13.0-18.0)
Hct 32.9 L %
(39.0-52.0)
MCV 79.9 L fL
(80.0-94.0)
MCH 25.0 L pg
(27.0-31.0)
MCHC 31.3 L g/dL
(33.0-37.0)
RDW 18.1 H %
(11.5-14.5)
Absolute Neuts (auto) 6.6 H 10^3/uL
(1.4-6.5)
Absolute Lymphs (auto) 0.7 L 10^3/uL
(1.2-3.4)
Absolute Monos (auto) 0.7 H 10^3/uL
(0.1-0.6)
Neutrophils % 79.5 H %
(42.2-75.2)
Lymphocytes % 8.9 L %
(20.5-51.1)
Glucose 122 H mg/dl
(70-99)
Calcium 6.2 L* mg/dl
(8.4-10.2)
Magnesium 0.6 L* mg/dl
(1.6-2.3)
09/18/24 22:16
09/18/24 22:16
Vital Signs
Initial and Last Documented VS:
Initial Vital Signs
Temp Pulse Resp BP Pulse Ox
100.4 F H 118 17 135/95 95
09/18/24 22:09 09/18/24 22:09 09/18/24 22:09 09/18/24 22:09 09/18/24 22:09
Last Documented Vital Signs
Temp Pulse Resp BP Pulse Ox
99.9 F 102 21 141/70 100
09/19/24 00:02 09/19/24 01:00 09/19/24 01:00 09/19/24 01:00 09/19/24 01:00
MDM/Problems Addressed
MDM/Problems Addressed:
No clear discernible cause of patient's abdominal pain noted. He is hypocalcemic and hypomagnesemic which is likely secondary to poor p.o. intake, likely worsened by PPI use. Will admit for further electrolyte repletion
*Critical Care Note
Total Time (30-74mins, 75-104mins- exclusive of procedures): Not Applicable
ED Attending Note
-
Portions of this chart may have been created with voice recognition software.� Occasional wrong word or��sound alike� substitutions may have occurred due to the inherent limitations of voice recognition software.
Discharge Plan
Departure
Patient Disposition: Admit
Date of Disposition: 09/19/24
Time of Disposition: 00:37
Admit to: Med/Surg
Presentation/result/management discussed w/ accepting MD/DO: Hospitalist
Discharge Problem:
Hypomagnesemia, Hypocalcemia
Prescriptions:
No Action
aspirin 81 MG tablet,delayed release (DR/EC)
81 mg PO HS
atorvastatin 80 MG tablet
80 mg PO DAILY
glimepiride 2 mg Tablet
2 mg PO DAILY
pyridostigmine bromide 60 mg tablet
30 mg PO BID
pantoprazole [Protonix] 40 mg tablet,delayed release (DR/EC)
40 mg PO DAILY
amlodipine 5 mg Tablet
5 mg PO DAILY Qty: 30 0RF
prucalopride [Motegrity] 2 mg tablet
2 mg PO HS
Xifaxan 550 mg tablet
275 mg PO DAILY
metoclopramide HCl 5 mg Tablet
5 mg PO TIDPRN PRN (Reason: nausea)
prednisone 5 mg tablet
5 mg PO DAILY
Referrals:
Tamara Bell MD [Family Provider] -
Interventions
Interventions:
*Risk Screen - Suicide Last Done: 09/18/24 22:10
*General Assessment Last Done: 09/18/24 22:10
*Neglect/Abuse Screening Last Done: 09/18/24 22:10
ED- Fall Risk Assessment Last Done: 09/18/24 23:30
*ED COVID-19 Vaccine History Last Done: 09/18/24 22:10
HX-Gsiunn-Qnnrxlafil Assessment Last Done: 09/18/24 23:30
Discharge Date and Time
Print Language: GREEK
[2024-09-18 23:10] LABS: Magnesium 0.6 mg/dl (1.6-2.3)
[2024-09-18 23:33] VITALS: BP 135/66
[2024-09-18] MEDS: DILAUDID 0.5 MG IV (23:37)
[2024-09-18] MEDS: CALCIUM GLUCONATE 100 IV (23:43)
[2024-09-18 23:52] VITALS: BMI 19.4
[2024-09-19] VITALS (11 sets, daily range): BP systolic 114–144; BP diastolic 63–75; PULSE 99–109; BMI 18.4; BMI 18.3
[2024-09-19 00:09] LABS: COVID-19 Antigen Negative (Negative)
[2024-09-19] MEDS: MAGNESIUM SULFATE 50 IV (00:20)
--- NOTE | 2024-09-19 01:19 | HPS.HSE ---
Family Physician
-
Family Physician: Tamara Bell
Chief Complaint
-
N/V, Abd Pain
History of Present Illness
Patient is a 74y M with PMH significant for scleroderma / systemic sclerosis, ASCVD and SIBO who presents to ED complaining of N/V/D and abdominal discomfort. Patient states that his current symptoms have been ongoing since July. He was
hospitalized here in July and again in August for similar symptoms. He was seen in the ED here on 09/15 and 09/16 with persistent symptoms. Today he returns complaining of continued N/V with any attempts at PO intake, mid abdominal pain and 3-4
episodes of loose diarrhea per day. Patient denies any recent change in his medications. He states that symptoms are the same as his previous hospitalizations.
Review of record reveals that he has had similar presentations / symptoms x several years in fact.
He is followed by Dr. Esparza as well as by Dr. Jacome at [facility].
Medical History
Past Medical History
Past Medical History: Reports Other
Additional Past Medical History:
SIBO / CIPO
ASCVD
GERD
Hypertension
DM-II
Scleroderma
Esophageal Dysmotility
Pulmonary Fibrosis
Past Surgical History: Reports Other
Additional Past Surgical History:
Cardiac stent x6
Cholecystectomy
Social History
Unable to obtain full social history at this time due to: Dementia
Tobacco: Non-smoker
Alcohol: None
Drug: None
Personal:
Family History
Family History: Not pertinent
Allergies / Home Medications
Allergies reflects when Allergies were last updated in [employer].
Home Medications with original date entered in [employer]
Allergy/Medication List:
Allergies
Allergy/AdvReac Type Severity Reaction Status Date / Time
No Known Allergies Allergy Verified 09/18/24 22:10
Home Medications
aspirin 81 mg tablet,delayed release 81 mg PO HS Blood clot prevention/tx 06/28/20
atorvastatin 80 mg tablet 80 mg PO DAILY High cholesterol 06/28/20
glimepiride 2 mg tablet 2 mg PO DAILY Diabetes 02/08/22
pyridostigmine bromide 60 mg tablet 30 mg PO BID Neurological Condition 03/19/23
pantoprazole 40 mg tablet,delayed release (Protonix) 40 mg PO DAILY GERD 02/29/24
amlodipine 5 mg tablet 5 mg PO DAILY blood pressure #30 tabs 08/12/24
prucalopride 2 mg tablet (Motegrity) 2 mg PO HS Constipation 08/18/24
rifaximin 550 mg tablet (Xifaxan) 275 mg PO DAILY Gastrointestinal issue 08/25/24
metoclopramide HCl 5 mg tablet 5 mg PO TIDPRN PRN nausea 09/18/24
prednisone 5 mg tablet 5 mg PO DAILY 09/18/24
Review of Systems
-
History Source: Patient
A 12 point ROS was completed and negative except as noted: Yes
Constitutional: Reports Weight Loss (21 pounds since July) and Fatigue; Denies Fever or Chills
EENT: Denies Sore Throat
Respiratory: Denies Cough or Trouble Breathing
Cardiac: Denies Chest Pain or Palpitations
Abdomen/GI: Reports Abdominal Pain, Nausea, Vomiting and Diarrhea; Denies Bloody Stools or Black Stools
: Denies Dysuria, Frequency or Flank Pain
Musculoskeletal: Denies Joint Pain or Edema
Neurological: Denies Dizzy or Headache
Psych: Denies Depression or Anxiety
Physical Exam
Vital Signs
Vital Signs
Temp Pulse Resp BP Pulse Ox
99.9 F 102 21 141/70 100
09/19/24 00:02 09/19/24 01:00 09/19/24 01:00 09/19/24 01:00 09/19/24 01:00
Physical Exam
General: Other (74y M in mild distress due to nausea, abdominal discomfort.)
HEENT: Other (Dry MM. Neck supple.)
Respiratory: Clear; No Wheezes, Rales or Rhonchi
Cardiac: S1/S2, Regular Rhythm and Murmur (II/ MARCO)
GI: Soft, Non Tender, Non Distended and Normal Bowel Sounds
Musculoskeletal: No Edema and Other (sclerodactyly)
Neuro: AO x 3
Laboratory Results
-
09/18/24 22:16
09/18/24 22:16
Laboratory Results
Lactic Acid 1.7 mmol/L (0.7-2.0) 09/18/24 22:19
Total Bilirubin 1.3 mg/dl (0.2-1.3) 09/18/24 22:16
AST 35 U/L (17-59) 09/18/24 22:16
ALT 37 U/L (0-50) 09/18/24 22:16
Alkaline Phosphatase 72 U/L (38-126) 09/18/24 22:16
Lipase 174 U/L (23-300) 09/18/24 22:16
Impression/Plan
-
A/P: Patient is a 74y M with PMH significant for scleroderma, gastroparesis, esophageal dysmotility and SIBO who presents to ED complaining of abdominal pain with N/V/D.
Abdominal Pain
N/V/D
Weight Loss secondary to the above
- Admit for further evaluation and treatment.
- GI re-evaluation for additional recommendations.
- Continue pyridostigmine for now.
- Increase Xifaxan to BID dosing (currently takes [id number])
- Supportive care with IVFs, pain control, antiemetics, etc.
- Patient febrile in ED to 100.4. Check stool studies.
- Observe off of abx for now and follow fever curve, symptoms, cultures, etc.
- Follow for clinical improvement.
Hypomagnesemia
Hypocalcemia
- Likely combination of poor oral intake, GI losses and acid suppression therapy.
- Hold PPI for now. Follow for changes in lytes / diarrhea / etc.
- Replace Mg / Ca IV and follow-up repeat labs.
- Albumin is adequate at present.
- Monitor on telemetry overnight - no evidence of arrhythmia at present.
Scleroderma
- Systemic manifestations. Continue current low-dose prednisone.
ASCVD
- Stable. Continue ASA, statin, etc.
Benign Hypertension
- Stable. Hold amlodipine acutely.
DM-II
- Stable. Hold PO hypoglycemic agents.
- Follow glucose and cover with SSI as needed.
Anemia of Chronic Disease
- Stable. Hgb is at / near known baseline.
- No reported black / bloody stools.
- Follow for any changes.
DVT Prophylaxis: SCDs
Code Status: Full
[2024-09-19] MEDS: LR 1000 IV ×2 (04:54→15:24)
[2024-09-19] MEDS: ZOFRAN 4 MG IV (04:54)
[2024-09-19] MEDS: DILAUDID 0.5 MG IV (04:54)
[2024-09-19] MEDS: PEPCID 20 MG PO (05:01)
[2024-09-19 07:48] LABS: Hematocrit 30.4 % (39.0-52.0); Hemoglobin 9.7 g/dL (13.0-18.0); Mean Corp Hgb Conc. 31.9 g/dL (33.0-37.0); Mean Corpuscular Hgb 25.1 pg (27.0-31.0); Mean Corpuscular Volume 78.6 fL (80.0-94.0); Mean Platelet Volume 9.3 fL (7.4-10.4); Platelet Count 317 10^3/uL (130-400); Red Blood Cell Count 3.87 10^6/uL (4.70-6.10); Red Cell Dist. Width 18.2 % (11.5-14.5)
[2024-09-19 07:56] LABS: Blood Urea Nitrogen 16 mg/dl (9-20); Calcium 6.5 mg/dl (8.4-10.2); Carbon Dioxide 26 mmol/L (22-30); Chloride 99 mmol/L (98-107); Estimated Creatinine Clearance 50 ml/min; Glucose 121 mg/dl (70-99); Magnesium 1.5 mg/dl (1.6-2.3); Phosphorus 3.7 mg/dl (2.5-4.5); Potassium 4.1 mmol/L (3.5-5.1); Sodium 137 mmol/L (135-145); eGFR > 60.00
[2024-09-19 08:15] LABS: TSH Reflex To Free T4 1.06 uIU/ml (0.47-4.68)
--- NOTE | 2024-09-19 08:38 | W.PN.HOSP.TC ---
Addendum entered and electronically signed by Arturo Das DO 09/19/24 13:20:
Asked by nurse to revisit patient due to right lower extremity pain.
On exam he has limited range of motion of the right knee due to severe pain. I do not appreciate a significant knee effusion or significant warmth or redness.
Nevertheless, I am concerned about potential crystalline arthropathy, less likely septic arthritis although he did have a low-grade fever last night.
Consult orthopedics for joint aspiration. Start IV Toradol as needed.
Check knee x-ray. Patient denies falls or trauma.
Looking through previous records he was felt to have pseudogout of the right knee in November of last year. Improved with Toradol. Did not improve with colchicine. Arthrocentesis at the time was negative for septic arthritis. No crystals were noted.
Original Note:
Today's Communication/Plan
-
Resume IV fluids
Add Compazine
GI consult
Assessment / Plan
Assessment / Plan
Gen-AAOx3, mild distress due to nausea, cachectic
HEENT-NC, AT, anicteric, clear oral mm
Neck-supple
CV-reg, no M, +S1/S2
Lungs-clear B/L
Abd-soft, NT, ND
Ext-no edema
Musculoskeletal-no cyanosis, clubbing
Skin-warm and dry
Neuro-grossly non-focal
Psych-calm, cooperative
Intractable vomiting -Suspect underlying scleroderma contributing to most of his GI symptoms. Gastroparesis, gastritis, SIBO, colonic dysmotility can all be caused by scleroderma.
CT abdomen pelvis shows gastric wall thickening, limited evaluation of small bowel pathology due to lack of contrast, diverticuli present without evidence of diverticulitis, several small calcifications in the head of the pancreas, 80% compression
fracture of T12. Subpleural interstitial fibrosis with bronchiectasis at the bases.
Add Compazine to Adilson. Resume IV fluids.
Has been on Motegrity, pyridostigmine, metoclopramide, Xifaxan.
GI consulted.
Fever -without leukocytosis. Looks nontoxic. COVID and influenza negative. Observe for now off antibiotics. Fever could be related to aspiration pneumonitis due to vomiting.
Severe protein/calorie malnutrition -due to underlying scleroderma with GI pathology. Patient admits to 26 pound weight loss, anorexia, intolerance of oral feeds.
Hypomagnesemia -replete intravenously.
Hypocalcemia -should correct with correction of magnesium.
Chronic anemia -suspect due to chronic inflammation due to scleroderma.
DM2 without hyperglycemia -was on glimepiride prior to admission. Hold glimepiride and use aspart corrective scale insulin. Would not resume glimepiride on discharge given high risk for hypoglycemia in setting of poor oral intake, gastroparesis,
as well as hemoglobin A1c less than 7%. Last A1c was in June, 6.3%. Repeat A1c pending.
CAD -with prior stents.
Essential hypertension -stable on amlodipine.
Hyperlipidemia -atorvastatin.
Scleroderma
Pulmonary fibrosis
Esophageal dysmotility
T12 compression fracture -suspect due to osteoporosis.
History of gout
Full code
Anticipated Discharge: > 48 hours
Subjective/Interval History
-
Date of Service: September 19, 2024
Patient seen and examined. Complaining of nausea, dry heaves.
Objective Data
-
Labs:
Laboratory Results
09/18/24 09/19/24
22:16 06:30
WBC 8.4 8.0
Hgb 10.3 L 9.7 L
Hct 32.9 L 30.4 L
Plt Count 352 317
Sodium 138 137
Potassium 3.9 4.1
Chloride 101 99
Carbon Dioxide 26 26
BUN 17 16
Creatinine 1.3 1.1
Glucose 122 H 121 H
Calcium 6.2 L* 6.5 L*
Total Bilirubin 1.3
AST 35
ALT 37
Alkaline Phosphatase 72
Vital Signs:
Vital Signs
Temp Pulse Resp BP Pulse Ox
99.0 F 92 16 114/68 99
09/19/24 07:45 09/19/24 07:45 09/19/24 07:45 09/19/24 07:45 09/19/24 07:45
Review of Systems
-
History Source: Patient
All other systems: Reviewed and negative
[2024-09-19] MEDS: MAGNESIUM SULFATE 100 IV (08:40)
[2024-09-19] MEDS: COMPAZINE 10 MG IV (08:41)
[2024-09-19 08:55] LABS: Glucose - Point of Care 116 mg/dl (70-99)
[2024-09-19] MEDS: NOVOLOG FLEXPEN-LOW RESISTANCE SC ×2 (08:55→12:04)
[2024-09-19] MEDS: HEPARIN 5000 UNITS SC ×2 (08:55→20:03)
[2024-09-19] MEDS: MESTINON PO (09:10)
[2024-09-19] MEDS: DELTASONE PO (09:10)
[2024-09-19] MEDS: NORVASC PO (09:10)
[2024-09-19] MEDS: LIPITOR PO (09:10)
[2024-09-19 10:16] LABS: Glycohemoglobin (HgbA1c) 6.5 % (4.0-5.6)
[2024-09-19 11:40] LABS: Glucose - Point of Care 117 mg/dl (70-99)
--- NOTE | 2024-09-19 11:58 | PTCARENOTE ---
Patient was c/o new Right leg pain and inability to move right leg; Dr. Das notified and came to assess patient; xray ordered.
--- NOTE | 2024-09-19 12:04 | CM ---
Patient seen bedside.
IA completed.
Patient lives with spouse in a [address] with 3 steps to enter.
patient works and drives.
Patient independent prior to admission.
Patient had [facility] in the past and open to have them again if needed.
PCP; Dr Denise Bell
Pharmacy: [facility]
Plan: home with spouse, watch for VN needs.
--- NOTE | 2024-09-19 13:03 | CON.GI ---
Addendum entered and electronically signed by Noelle Santiago MD 09/19/24 14:38:
I saw and examined the patient.
The [employer] [facility] [employer]'s note was reviewed and I agree with the note.
Comment: Mr. Wing is an unfortunate 74-year-old male with past medical history as listed below including scleroderma, SIBO with chronic intestinal dysmotility including gastroparesis related to scleroderma with pseudoobstruction who sees
Isaias and also sees Dr. Jacome at [place] and has been on Xifaxan, Motegrity and Mestinon and recently had a telehealth visit with Dr. Elder 09/12 and was started on Reglan but patient has been unable to take anything by mouth over the past couple
of days including his pills and presented to the ER for also abdominal pain which seems to have started about a week ago in the lower abdomen. He was constipated and had not had a bowel movement for about a week but yesterday he said he had
diarrhea. He has had multiple admissions in the recent past for similar symptoms. He does have nausea has not had any recent vomiting but has had in the past. He has lost about 25 pounds since July.
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
Recent imaging studies have been negative for bowel obstruction also has prior history of SIBO and has been on chronic Xifaxan therapy and also on Motegrity and Mestinon. But recently has been constipated even with this regimen with decreased oral
intake and weight loss. He was recently recommended Reglan will start IV Reglan and may need enemas as needed. He states he was on domperidone in the past. I told him to also supplement with senna or MiraLAX and enemas/supp at home if needed for
constipation. He does have an appointment coming up soon with Dr. Jacome after discharge and may need to consider possible long-term TPN or GJ feeds but given his overall decreased motility unclear if he will be able to tolerate even J-tube feeds.
Original Note:
Consultation
-
Date/Time Consultation Requested: 09/19/24 4198
Date/Time Consultation Performed: 09/19/24 1130
Requesting Provider: Dr. Padilla
Performing Provider: Dr. Santiago/MAILE Vazquez
Reason for Consultation: N/V/D
Medical History
Chief Complaint / HPI
Chief Complaint: n/v/constipation/diarrhea
History of Present Illness:
Mr. Wing is a 74-year-old male well-known to our practice (Dr. Esparza) with history of scleroderma, ASCD, SIBO, T12 fracture managed (Steroids, back brace) diverticulitis, coffee-ground emesis in the past with negative EGD, chronic intestinal
pseudoobstruction, followed by Dr. Jacome at [place] for SIBO/CIPO maintained on regimen of Xifaxan, Motegrity, Mestinon who recently saw Dr. Jacome via telehealth on 09/12/24 and recently placed on Reglan 3 times daily however has been unable to
take any of his medications secondary to severe nausea and vomiting associted multiple episodes of diarrhea. This brought him to the hospital for further evaluation. He was seen in the emergency room on and with persistent symptoms. We
are asked to evaluate for the same. At the present time the patient has been having dry heaves but has not had any vomiting today. He has lost over 20+ pounds in the past month. He was noted to have a fever of 100.4. He denies any melena,
hematochezia. He is maintained on IV fluids at the present time. He appears cachectic, weak with significant muscle wasting. He states he has been unable to take his medications. WBC 8.0, hemoglobin 9.7, hematocrit 30.4, platelets 317, sodium
137, potassium 4.1, BUN 16, creatinine 1.1, glucose 121, calcium 6.5, phosphorus 3.7, magnesium 1.5 increased from 0.6, total bilirubin 1.3, AST 35, ALT 37, alk phos 72, lipase 174, TSH 1.06.
Past Medical History
Past Medical History: Other (SIBO ASCVD GERD Hypertension DM-II Scleroderma suspected pulm fibrosis subacute T12 burst fx chronic panc CAD TX)
Past Surgical History: Other (Cardiac stent x6 Cholecystectomy)
Social History
Tobacco: Non-Smoker
Alcohol: None
Family History
Family History: Reviewed & Not Pertinent
Allergies / Home Medications
Allergy/AdvReac Type Severity Reaction Status Date / Time
No Known Allergies Allergy Verified 09/18/24 22:10
�Medication �Instructions �Recorded
aspirin 81 mg tablet,delayed 81 mg PO HS Blood clot 06/28/20
release prevention/tx
atorvastatin 80 mg tablet 80 mg PO DAILY High cholesterol 06/28/20
glimepiride 2 mg tablet 2 mg PO DAILY Diabetes 02/08/22
pyridostigmine bromide 60 mg tablet 30 mg PO BID Neurological Condition 03/19/23
pantoprazole 40 mg tablet,delayed 40 mg PO DAILY GERD 02/29/24
release (Protonix)
amlodipine 5 mg tablet 5 mg PO DAILY blood pressure #30 08/12/24
tabs
prucalopride 2 mg tablet 2 mg PO HS Constipation 08/18/24
(Motegrity)
rifaximin 550 mg tablet (Xifaxan) 275 mg PO DAILY Gastrointestinal 08/25/24
issue
metoclopramide HCl 5 mg tablet 5 mg PO TIDPRN PRN nausea 09/18/24
prednisone 5 mg tablet 5 mg PO DAILY 09/18/24
Review of Systems
-
All other systems: A 12 pt ROS was Negative except as stated above in HPI
Vital Signs
Temp Pulse Resp BP Pulse Ox
99.7 F 99 18 135/69 94
09/19/24 11:14 09/19/24 11:14 09/19/24 11:14 09/19/24 11:14 09/19/24 11:14
Physical Exam
Exam
General: Other (Cachectic, muscle wasting, chronically ill-appearing)
HEENT: Anicteric
Respiratory: Clear (Anterior)
Cardiac: Regular Rhythm
GI: Soft, Non Distended and Other (Very hypoactive bowel sounds)
Musculoskeletal: No Edema
Skin: Warm and Dry
Neuro: AO x 3
Psych: Calm
Results
WBC 8.0 10^3/uL (4.8-10.8) 09/19/24 06:30
Hgb 9.7 g/dL (13.0-18.0) L 09/19/24 06:30
Hct 30.4 % (39.0-52.0) L 09/19/24 06:30
MCV 78.6 fL (80.0-94.0) L 09/19/24 06:30
Plt Count 317 10^3/uL (130-400) 09/19/24 06:30
Absolute Neuts (auto) 6.6 10^3/uL (1.4-6.5) H 09/18/24 22:16
Sodium 137 mmol/L (135-145) 09/19/24 06:30
Potassium 4.1 mmol/L (3.5-5.1) 09/19/24 06:30
Chloride 99 mmol/L (98-107) 09/19/24 06:30
Carbon Dioxide 26 mmol/L (22-30) 09/19/24 06:30
BUN 16 mg/dl (9-20) 09/19/24 06:30
Creatinine 1.1 mg/dL (0.7-1.3) 09/19/24 06:30
Calcium 6.5 mg/dl (8.4-10.2) L* 09/19/24 06:30
Total Bilirubin 1.3 mg/dl (0.2-1.3) 09/18/24 22:16
AST 35 U/L (17-59) 09/18/24 22:16
ALT 37 U/L (0-50) 09/18/24 22:16
Alkaline Phosphatase 72 U/L (38-126) 09/18/24 22:16
Lipase 174 U/L (23-300) 09/18/24 22:16
Diagnostic Image Results:
CT abdomen pelvis with IV contrast:
1). Gastric wall thickening may be secondary to incomplete distention, however, gastritis is not excluded
2).Evaluation for bowel pathology is limited by the lack of enteric contrast.
If there is persistent clinical concern for bowel pathology, the study could be repeated with enteric contrast
The appendix is not visualized.
Diverticuli are present in the colon with no CT evidence of diverticulitis
3).There are a several small calcifications at the head of the pancreas such as may be seen with chronic pancreatitis.
The pancreas is otherwise normal with no acute pancreatitis
Correlation with patient's amylase and lipase may be useful
4). Nonurgent findings include:
-Atherosclerosis
-Cholecystectomy
-3.5 cm left renal cyst
-9 mm hepatic cyst
-80% compression fracture of T12, stable dating back to 08/08/2024
-Subpleural interstitial fibrosis with bronchiectasis at the bases
Prior GI Procedures:
06/15/2023, Dr. Esparza:
-One 10 mm polyp at the hepatic flexure, removed with
a hot snare. Resected and retrieved.
- One diminutive polyp in the descending colon,
removed with a jumbo cold forceps. Resected and
retrieved.
- Diverticulosis in the sigmoid colon.
-Path: tubular adenomas
-Repeat in 3 years for surveillance.
07/29/24 EGD ([facility]) - Normal proximal esophagus.
- Small amount of retained fluid in the mid esophagus,
suctioned and cleared.
- [place]-colored mucosa suspicious for short-segment
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 Biopsied.
- Otherwise, normal esophagus without any evidence of
esophagitis, jimy-resendez tears or ulcerations
- Multiple, benign appearing gastric polyps.
Endoscopically, consistent with benign fundic gland
polyps and left intact as all were less than 1 cm
- A small amount of food (residue) in the gastric
antrum
- Otherwise, normal stomach on direct and retroflexion
views
- Small amount of retained food/residue in the
examined duodenum up to the third portion
- The examination was otherwise normal.
EGD:� Multiple EGDs in the past, by Dr. Corrigan, reports negative
Assessment / Plan
-
Mr. Wing is a 74-year-old male well-known to our practice (Dr. Esparza) with history of scleroderma, ASCD, SIBO, T12 fracture managed (Steroids, back brace) diverticulitis, coffee-ground emesis in the past with negative EGD, chronic intestinal
pseudoobstruction, followed by Dr. Jacome at [place] for SIBO/CIPO maintained on regimen of Xifaxan, Motegrity, Mestinon who recently saw Dr. Jacome via telehealth on 09/12/24 and recently placed on Reglan 3 times daily however has been unable to
take any of his medications secondary to severe nausea and vomiting with associated episodes of diarrhea. The ER evaluations on 09/15/2024 as well as 09/16/2024. Returns and was admitted on 09/18/2024. Also with mild fever. Inability to take
medications at home as well as oral intake.
Impression:
--N/V
--Diarrhea, improved
--Chronic Intestinal pseudoobstruction with dysmotility
-- History of scleroderma/ SIBO
-- Weight loss
Recommendations:
- Stop prochlorperazine and change to Reglan 10 mg IV TID standing dose. First dose will be given at 4 pm today.
- Of note, patient refused am meds today.
- Since with refusal of oral meds, will change Famotidine to IV BID.
- Stool studies if with BM
- Increased Rifaxmin 550 mg TID
- Continue mestinon 30 mg bid
- Minimize narcotics
- Patient has f/u with Dr. Jacome on 09/26 again.
-
-
Thank you for consultation and allowing me to participate in the patient's care. Please call the [facility] GI physician during the after hours with any questions or concerns.
[2024-09-19] MEDS: REGLAN 10 MG IV ×2 (15:22→22:09)
[2024-09-19] MEDS: TORADOL 15 MG IV (15:22)
[2024-09-19 16:37] LABS: Glucose - Point of Care 245 mg/dl (70-99)
--- NOTE | 2024-09-19 18:10 | CON.ORTHO ---
Consultation - Orthopedics
History
74-year-old male history of scleroderma presented to the emergency department with complaints of nausea vomiting and abdominal discomfort. He was admitted to the hospitalist service for further evaluation and treatment. He began to complain of
significant right knee pain. Orthopedics was consulted for further evaluation and treatment. Patient was actually seen by myself last year with similar complaints. He does report that he has had on and off knee pain although has not really been
this severe since his previous hospitalization. He does follow with a label operator on outpatient basis undergoes periodic injections. Reports that he had an injection several weeks ago in his knee. He is localizing pain to the anterior
anterolateral aspect of the knee. Symptoms are made worse with ambulation and motion but are somewhat present at rest. She reports that pain is somewhat improved this evening compared to this morning. He reports that he has responded well in the
past anti-inflammatory medications. He does have a history of pseudogout.
Allergies / Home Medications
Past medical history: Scleroderma, small bowel obstruction GERD, hypertension, diabetes, pulmonary fibrosis
Past surgical history: Cardiac stent, cholecystectomy
Family history: Not pertinent
Social history: lives at home
Allergy/AdvReac Type Severity Reaction Status Date / Time
No Known Allergies Allergy Verified 09/18/24 22:10
�Medication �Instructions �Recorded
aspirin 81 mg tablet,delayed 81 mg PO HS Blood clot 06/28/20
release prevention/tx
atorvastatin 80 mg tablet 80 mg PO DAILY High cholesterol 06/28/20
glimepiride 2 mg tablet 2 mg PO DAILY Diabetes 02/08/22
pyridostigmine bromide 60 mg tablet 30 mg PO BID Neurological Condition 03/19/23
pantoprazole 40 mg tablet,delayed 40 mg PO DAILY GERD 02/29/24
release (Protonix)
amlodipine 5 mg tablet 5 mg PO DAILY blood pressure #30 08/12/24
tabs
prucalopride 2 mg tablet 2 mg PO HS Constipation 08/18/24
(Motegrity)
rifaximin 550 mg tablet (Xifaxan) 275 mg PO DAILY Gastrointestinal 08/25/24
issue
metoclopramide HCl 5 mg tablet 5 mg PO TIDPRN PRN nausea 09/18/24
prednisone 5 mg tablet 5 mg PO DAILY 09/18/24
Vital Signs / Lab Results
Temp Pulse Resp BP Pulse Ox
99.7 F 111 16 134/65 93
09/19/24 18:05 09/19/24 15:17 09/19/24 15:17 09/19/24 15:17 09/19/24 15:17
09/19/24 06:30
09/19/24 06:30
10 point review systems reviewed and negative unless otherwise stated
General: Pleasant, comfortable at rest
Musculoskeletal right lower extremity
Skin intact, no erythema recommending staining
There is no significant palpable synovial warmth compared to contralateral extremity
There is no palpable knee effusion
Patient is able to strongly straight leg raise
He is able to flex to about 100 degrees limited by discomfort
There is some moderate lateral joint line tenderness palpation
There is more mild medial joint line tenderness palpation
No significant palpable crepitus with knee flexion extension
No gross motor or sensory deficits distally
Diagnostic studies
X-rays right knee taken today independently viewed by myself and radiology report reviewed. There is some evidence of chondrocalcinosis. Radiology report does indicate small suprapatellar joint effusion. There is some mild degenerative changes
noted patellofemoral lateral compartment.
Assessment / Plan
74-year-old male history of scleroderma pseudogout chronic right knee pain with acute exacerbation right knee pain. I had a long discussion the patient regarding potential diagnoses. Although the radiology report does note radiographic evidence of
small joint effusion, there is no clinical evidence of effusion on examination. He was seen in the past for very similar complaints that improved with anti-inflammatory medications. I did discussed with nursing staff and he did receive Toradol
today and he is reporting some improvement in his symptoms. I would recommend continued anti-inflammatory medication. Examination is not consistent with septic joint. Certainly if symptoms were to worsen or patient has more clinical evidence of
effusion, could consider aspiration although this was done last year with similar presentation and this was negative for any signs of infection. Would suspect that this is more likely pseudogout versus other inflammatory arthropathy. Again would
recommend anti-inflammatory medications mobilization with physical therapy and outpatient follow-up with his established provider. Please reach out any questions or concerns.
[2024-09-19] MEDS: NOVOLOG FLEXPEN-LOW RESISTANCE 2 UNITS SC (18:31)
--- NOTE | 2024-09-19 20:00 | PTCARENOTE ---
Patient refused Ortho vitals.
[2024-09-19] MEDS: LR IV (20:02)
[2024-09-19] MEDS: MESTINON 30 MG PO (20:10)
[2024-09-19] MEDS: PEPCID 20 MG IV (20:10)
[2024-09-19] MEDS: NSS (PRESERVATIVE FREE) 8 ML IV (20:11)
[2024-09-19 21:42] LABS: Glucose - Point of Care 117 mg/dl (70-99)
[2024-09-19] MEDS: ASPIR LOW (ENTERIC COATED) 81 MG PO (22:09)
[2024-09-19] MEDS: FLUSH (NSS) 2 FLUSH IV (22:10)
[2024-09-19] MEDS: TYLENOL 650 MG PO (23:07)
[2024-09-20] VITALS (10 sets, daily range): BP systolic 109–136; BP diastolic 51–90; PULSE 81–115; O2SAT 97; BMI 18.3
[2024-09-20 06:27] LABS: Blood Urea Nitrogen 11 mg/dl (9-20); Calcium 6.7 mg/dl (8.4-10.2); Carbon Dioxide 28 mmol/L (22-30); Chloride 102 mmol/L (98-107); Estimated Creatinine Clearance 50 ml/min; Glucose 122 mg/dl (70-99); Magnesium 2.3 mg/dl (1.6-2.3); Potassium 4.5 mmol/L (3.5-5.1); Sodium 136 mmol/L (135-145); eGFR > 60.00
[2024-09-20 07:10] LABS: Glucose - Point of Care 115 mg/dl (70-99)
[2024-09-20] MEDS: NOVOLOG FLEXPEN-LOW RESISTANCE SC (08:05)
[2024-09-20] MEDS: DELTASONE 5 MG PO (08:06)
[2024-09-20] MEDS: LIPITOR PO (08:07)
[2024-09-20] MEDS: MESTINON 30 MG PO ×2 (08:07→19:56)
[2024-09-20] MEDS: NORVASC 5 MG PO (08:08)
[2024-09-20] MEDS: HEPARIN SC (08:09)
[2024-09-20] MEDS: REGLAN 10 MG IV ×3 (08:09→22:11)
[2024-09-20] MEDS: TYLENOL 650 MG PO ×2 (08:19→23:30)
--- NOTE | 2024-09-20 09:20 | W.PN.GI.CBS2 ---
Addendum entered and electronically signed by Noelle Santiago MD 09/20/24 10:04:
Correction to physical he has hypoactive bowel sounds
Original Note:
Today's Communication / Plan
-
Low residue diet
Continue current meds and also resume Motegrity
Assessment / Plan
-
Mr. Wing is a 74-year-old male well-known to our practice (Dr. Esparza) with history of scleroderma, ASCD, SIBO, T12 fracture managed (Steroids, back brace) diverticulitis, coffee-ground emesis in the past with negative EGD, chronic intestinal
pseudoobstruction, followed by Dr. Jacome at [place] for SIBO/CIPO maintained on regimen of Xifaxan, Motegrity, Mestinon who recently saw Dr. Jacome via telehealth on 09/12/24 and recently placed on Reglan 3 times daily however has been unable to
take any of his medications secondary to severe nausea and vomiting with associated episodes of diarrhea. The ER evaluations on 09/15/2024 as well as 09/16/2024. Returns and was admitted on 09/18/2024. Also with mild fever. Inability to take
medications at home as well as oral intake.
Impression:
--N/V
--Diarrhea, improved
--Chronic Intestinal pseudoobstruction with dysmotility
-- History of scleroderma/ SIBO
-- Weight loss
Recommendations:
- on Reglan 10 mg IV TID standing dose.
- Continue famotidine and Protonix
- Increased Rifaximin 550 mg TID
- Continue mestinon 30 mg bid
-Also told patient to bring in Motegrity from home and resume
-He says he gets cramping with senna so discontinued and added MiraLAX twice daily instead
-May need enema if still does not have a bowel movement wants to hold for now
- Minimize narcotics
-Started on low residue diet and if tolerates possible DC in a.m.
- Patient has f/u with Dr. Jacome on 09/26 again.
-Has failure to thrive overall with decreased oral intake for the past 3 to 4 weeks with almost a 25 pound weight loss over the past 1 month. May need long-term parenteral nutrition with TPN versus trial of J-tube feeds(may not tolerate given
diffuse decreased motility from scleroderma) will defer to Dr. Jacome
Subjective
Subjective
Date of Service: September 20, 2024
He is feeling better today with less abdominal distention and less pain, no bowel movement yet but no nausea or vomiting
Objective
Data Reviewed
Laboratory Data:
Laboratory Results
09/19/24 06:30
09/20/24 05:35
Laboratory Results
Phosphorus 3.0 mg/dl (2.5-4.5) 09/20/24 05:35
Magnesium 2.3 mg/dl (1.6-2.3) 09/20/24 05:35
Total Bilirubin 1.3 mg/dl (0.2-1.3) 09/18/24 22:16
AST 35 U/L (17-59) 09/18/24 22:16
ALT 37 U/L (0-50) 09/18/24 22:16
Alkaline Phosphatase 72 U/L (38-126) 09/18/24 22:16
Lipase 174 U/L (23-300) 09/18/24 22:16
Vital Signs and I&O:
Vital Signs
Temp Pulse Resp BP Pulse Ox
99.2 F 83 17 136/61 99
09/20/24 07:11 09/20/24 07:11 09/20/24 07:11 09/20/24 07:11 09/20/24 07:11
I&O
09/19/24 09/20/24 09/21/24
06:59 06:59 06:59
Intake Total 3350 / 3350
Output Total 775 / 775
Balance 257 / 257
Physical Exam
Physical Exam
Cardiology: Normal Sinus Rhythm and Other (Systolic murmur)
Pulmonary: Clear
GI: Soft, Distended (Much less distended), Non Tender and Normal Bowel Sounds
[2024-09-20] MEDS: NSS (PRESERVATIVE FREE) 10 ML IV (10:17)
[2024-09-20] MEDS: PROTONIX IV 40 MG IV (10:18)
[2024-09-20] MEDS: FLUSH (NSS) 2 FLUSH IV ×2 (10:20→16:22)
[2024-09-20 12:18] LABS: Glucose - Point of Care 187 mg/dl (70-99)
[2024-09-20] MEDS: NOVOLOG FLEXPEN-LOW RESISTANCE 1 UNITS SC ×2 (12:18→17:24)
--- NOTE | 2024-09-20 12:39 | W.PN.HOSP.TC ---
Today's Communication/Plan
-
Continue current care
Assessment / Plan
Assessment / Plan
Gen-AAOx3, mild distress due to nausea, cachectic
HEENT-NC, AT, anicteric, clear oral mm
Neck-supple
CV-reg, no M, +S1/S2
Lungs-clear B/L
Abd-soft, NT, ND
Ext-no edema
Musculoskeletal-no cyanosis, clubbing
Skin-warm and dry
Neuro-grossly non-focal
Psych-calm, cooperative
Intractable vomiting -Suspect underlying scleroderma contributing to most of his GI symptoms. Gastroparesis, gastritis, SIBO, colonic dysmotility can all be caused by scleroderma.
CT abdomen pelvis shows gastric wall thickening, limited evaluation of small bowel pathology due to lack of contrast, diverticuli present without evidence of diverticulitis, several small calcifications in the head of the pancreas, 80% compression
fracture of T12. Subpleural interstitial fibrosis with bronchiectasis at the bases.
Add Compazine to Zofran and stagger. Resume IV fluids.
Has been on Motegrity, pyridostigmine, metoclopramide, Xifaxan.
Clinically improved overnight, feels better currently. Continue IV Reglan [id number]. Rifaximin increased to 550mg 3 times daily.
Low residue diet per GI service. Close outpatient follow-up.
Fever -without leukocytosis. Patient looks nontoxic, no evidence of sepsis. Could be related to right knee pseudogout flare. Pain much improved with Toradol, continue for now. No significant knee effusion on exam. Appreciate orthopedics input.
Severe protein/calorie malnutrition -due to underlying scleroderma with GI pathology. Patient admits to 26 pound weight loss, anorexia, intolerance of oral feeds.
Hypomagnesemia -resolved.
Hypocalcemia -still low 6.7. Can check vitamin D, PTH.
Chronic anemia -suspect due to chronic inflammation due to scleroderma.
DM2 without hyperglycemia -was on glimepiride prior to admission. Hold glimepiride and use aspart corrective scale insulin. Would not resume glimepiride on discharge given high risk for hypoglycemia in setting of poor oral intake, gastroparesis,
as well as hemoglobin A1c less than 7%. Hemoglobin A1c currently 6.5%. Glucoses for the most part are controlled in the hospital.
CAD -with prior stents.
Essential hypertension -stable on amlodipine.
Hyperlipidemia -atorvastatin.
Scleroderma
Pulmonary fibrosis
Esophageal dysmotility
T12 compression fracture -suspect due to osteoporosis.
History of gout
Full code
Anticipated Discharge: 24 - 48 hours
Subjective/Interval History
-
Date of Service: September 20, 2024
Patient seen and examined. The right knee pain is significantly improved. Feels that he is ready to start solid food, denies nausea currently.
Objective Data
-
Labs:
Laboratory Results
09/20/24
05:35
Sodium 136
Potassium 4.5
Chloride 102
Carbon Dioxide 28
BUN 11
Creatinine 1.1
Glucose 122 H
Calcium 6.7 L*
Vital Signs:
Vital Signs
Temp Pulse Resp BP Pulse Ox
99.0 F 95 19 115/63 97
09/20/24 11:12 09/20/24 11:12 09/20/24 11:12 09/20/24 11:12 09/20/24 11:12
I&O
09/19/24 09/20/24 09/21/24
06:59 06:59 06:59
Intake Total 3350 / 3350
Output Total 775 / 775
Balance 2575 / 2575
Review of Systems
-
History Source: Patient
All other systems: Reviewed and negative
[2024-09-20 15:22] LABS: Intact PTH 286.7 pg/ml (13.6-85.8)
[2024-09-20 15:26] LABS: Vitamin D, 25-OH*** < 12.8 ng/mL (30-80)
[2024-09-20 17:24] LABS: Glucose - Point of Care 159 mg/dl (70-99)
[2024-09-20 17:25] LABS: Urine Albumin 2+ (Neg - Trace); Urine Bilirubin Negative (Negative); Urine Character Clear (Clear); Urine Color Yellow; Urine Glucose 2+ (Negative); Urine Ketone Negative (Negative); Urine Leukocyte Negative (Negative); Urine Nitrite Negative (Negative); Urine Occult Blood 1+ (Negative); Urine Specific Gravity 1.015 (<1.030); Urine Urobilinogen 2+ (Neg - 1+)
[2024-09-20 17:35] LABS: Urine Squamous Cell 16-20 /LPF (Few)
[2024-09-20 17:36] LABS: Urine Bacteria Few (Negative); Urine Mucus Few; Urine Red Blood Cell 0-2 /HPF (0-2); Urine White Cell 0-2 /HPF (0-5)
[2024-09-20] MEDS: HEPARIN 5000 UNITS SC (19:55)
[2024-09-20 21:28] LABS: Glucose - Point of Care 147 mg/dl (70-99)
[2024-09-20] MEDS: ASPIR LOW (ENTERIC COATED) 81 MG PO (22:10)
[2024-09-20] MEDS: NSS (PRESERVATIVE FREE) 8 ML IV (22:10)
[2024-09-20] MEDS: PEPCID 20 MG IV (22:11)
[2024-09-20] MEDS: FLUSH (NSS) 3 FLUSH IV (22:12)
[2024-09-21 02:57] VITALS: BP 100/61
[2024-09-21 04:35] LABS: Blood Urea Nitrogen 17 mg/dl (9-20); Calcium 7.1 mg/dl (8.4-10.2); Carbon Dioxide 24 mmol/L (22-30); Chloride 104 mmol/L (98-107); Estimated Creatinine Clearance 50 ml/min; Glucose 125 mg/dl (70-99); Magnesium 2.2 mg/dl (1.6-2.3); Phosphorus 2.9 mg/dl (2.5-4.5); Potassium 4.3 mmol/L (3.5-5.1); Sodium 136 mmol/L (135-145); eGFR > 60.00
[2024-09-21 05:25] VITALS: BMI 18.6
[2024-09-21 07:00] VITALS: BP 105/64; BP 107/59; BP 116/62; PULSE 112; PULSE 88
[2024-09-21 07:14] LABS: Glucose - Point of Care 125 mg/dl (70-99)
[2024-09-21 07:56] VITALS: BP 116/63
[2024-09-21] MEDS: NOVOLOG FLEXPEN-LOW RESISTANCE SC (08:15)
[2024-09-21] MEDS: DELTASONE 5 MG PO (08:16)
[2024-09-21] MEDS: HEPARIN 5000 UNITS SC (08:16)
[2024-09-21] MEDS: LIPITOR 80 MG PO (08:16)
[2024-09-21] MEDS: PROTONIX IV 40 MG IV (08:17)
[2024-09-21] MEDS: MESTINON 30 MG PO (08:17)
[2024-09-21] MEDS: NORVASC 5 MG PO (08:18)
[2024-09-21] MEDS: NSS (PRESERVATIVE FREE) 10 ML IV (08:18)
[2024-09-21] MEDS: REGLAN 10 MG IV (08:19)
--- NOTE | 2024-09-21 08:40 | W.PN.GI.CBS2 ---
Today's Communication / Plan
-
Ok for DC
Assessment / Plan
-
Mr. Wing is a 74-year-old male well-known to our practice (Dr. Esparza) with history of scleroderma, ASCD, SIBO, T12 fracture managed (Steroids, back brace) diverticulitis, coffee-ground emesis in the past with negative EGD, chronic intestinal
pseudoobstruction, followed by Dr. Jacome at [facility] for SIBO/CIPO maintained on regimen of Xifaxan, Motegrity, Mestinon who recently saw Dr. Jacome via telehealth on 09/12/24 and recently placed on Reglan 3 times daily however has been unable to
take any of his medications secondary to severe nausea and vomiting with associated episodes of diarrhea. The ER evaluations on 09/15/2024 as well as 09/16/2024. Returns and was admitted on 09/18/2024. Also with mild fever. Inability to take
medications at home as well as oral intake.
Impression:
--N/V
--Diarrhea, improved
--Chronic Intestinal pseudoobstruction with dysmotility
-- History of scleroderma/ SIBO
-- Weight loss
Recommendations:
- on Reglan 10 mg IV TID standing dose.
- Continue famotidine and Protonix
- Increased Rifaximin 550 mg TID
- Continue mestinon 30 mg bid
- Also told patient to restart Motegrity at home
- He says he gets cramping with senna so discontinued and added MiraLAX twice daily instead
- He did have a bowel movement yesterday
- Minimize narcotics
- Started on low residue diet tolerated okay for DC today
- Patient has f/u with Dr. Jacome on 09/26 again.
- Has failure to thrive overall with decreased oral intake for the past 3 to 4 weeks with almost a 25 pound weight loss over the past 1 month. May need long-term parenteral nutrition with TPN versus trial of J-tube feeds(may not tolerate given
diffuse decreased motility from scleroderma) will defer to Dr. Jacome
- Also told patient to drink protein supplements he does have Ensure at home daily if he is unable to tolerate diet
- Vitamin D deficiency will need to start supplements
Subjective
Subjective
Date of Service: September 21, 2024
Feeling much improved, tolerating diet, had a bowel movement yesterday and wants to go home
Objective
Data Reviewed
Laboratory Data:
Laboratory Results
09/19/24 06:30
09/21/24 03:52
Laboratory Results
Phosphorus 2.9 mg/dl (2.5-4.5) 09/21/24 03:52
Magnesium 2.2 mg/dl (1.6-2.3) 09/21/24 03:52
Total Bilirubin 1.3 mg/dl (0.2-1.3) 09/18/24 22:16
AST 35 U/L (17-59) 09/18/24 22:16
ALT 37 U/L (0-50) 09/18/24 22:16
Alkaline Phosphatase 72 U/L (38-126) 09/18/24 22:16
Lipase 174 U/L (23-300) 09/18/24 22:16
Vital Signs and I&O:
Vital Signs
Temp Pulse Resp BP Pulse Ox
97.8 F 88 16 116/63 98
09/21/24 07:56 09/21/24 08:18 09/21/24 07:56 09/21/24 08:18 09/21/24 07:56
I&O
09/20/24 09/21/24 09/22/24
06:59 06:59 06:59
Intake Total 3350 / 3350 890 / 890
Output Total 775 / 775
Balance 2575 / 2575 890 / 890
Physical Exam
Physical Exam
Cardiology: Normal Sinus Rhythm and Murmur (Systolic murmur)
Pulmonary: Clear
GI: Soft, Non Distended, Non Tender and Normal Bowel Sounds
[2024-09-21 11:04] LABS: Glucose - Point of Care 106 mg/dl (70-99)
--- NOTE | 2024-09-21 11:37 | W.PN.HOSP.TC ---
Today's Communication/Plan
-
Start vitamin D
Discharge
Assessment / Plan
Assessment / Plan
Gen-AAOx3, mild distress due to nausea, cachectic
HEENT-NC, AT, anicteric, clear oral mm
Neck-supple
CV-reg, no M, +S1/S2
Lungs-clear B/L
Abd-soft, NT, ND
Ext-no edema
Musculoskeletal-no cyanosis, clubbing
Skin-warm and dry
Neuro-grossly non-focal
Psych-calm, cooperative
Intractable vomiting -Suspect underlying scleroderma contributing to most of his GI symptoms. Gastroparesis, gastritis, SIBO, colonic dysmotility can all be caused by scleroderma.
CT abdomen pelvis shows gastric wall thickening, limited evaluation of small bowel pathology due to lack of contrast, diverticuli present without evidence of diverticulitis, several small calcifications in the head of the pancreas, 80% compression
fracture of T12. Subpleural interstitial fibrosis with bronchiectasis at the bases.
Add Compazine to Zofran and stagger. Resume IV fluids.
Has been on Motegrity, pyridostigmine, metoclopramide, Xifaxan.
Clinically improved overnight, feels better currently. Continue IV Reglan [id number]. Rifaximin increased to 550mg 3 times daily. However, patient hesitant to increase rifaximin dose on discharge as his outpatient GI doctor just decreased
it to once a day. I encouraged him to speak with him on Sunday.
Tolerating low residue diet. GI service okay with discharge.
Fever -without leukocytosis. Patient looks nontoxic, no evidence of sepsis. Could be related to right knee pseudogout flare. Pain much improved with Toradol, continue for now. No significant knee effusion on exam. Appreciate orthopedics input.
Use ibuprofen on discharge as needed. Discussed with patient.
Severe protein/calorie malnutrition -due to underlying scleroderma with GI pathology. Patient admits to 26 pound weight loss, anorexia, intolerance of oral feeds.
Hypomagnesemia -resolved.
Severe vitamin D deficiency -with associated hypocalcemia. Elevated PTH is reactive and due to vitamin D deficiency. 25-hydroxy vitamin D level less than 12.8. Start ergocalciferol 50,000 units every 7 days, recheck vitamin D level in 2 months.
Discussed with patient. Follow-up with PCP.
Chronic anemia -suspect due to chronic inflammation due to scleroderma.
DM2 without hyperglycemia -was on glimepiride prior to admission. Hold glimepiride and use aspart corrective scale insulin. Would not resume glimepiride on discharge given high risk for hypoglycemia in setting of poor oral intake, gastroparesis,
as well as hemoglobin A1c less than 7%. Hemoglobin A1c currently 6.5%. Glucoses for the most part are controlled in the hospital.
CAD -with prior stents.
Essential hypertension -stable on amlodipine.
Hyperlipidemia -atorvastatin.
Scleroderma
Pulmonary fibrosis
Esophageal dysmotility
T12 compression fracture -suspect due to osteoporosis.
History of gout
Full code
Dispo -stable for discharge home today. Outpatient follow-up.
35-minute spent in discharge process.
Anticipated Discharge: Today
Subjective/Interval History
-
Date of Service: September 21, 2024
Patient seen and examined. Feeling much better. No complaints. Requesting discharge.
Objective Data
-
Labs:
Laboratory Results
09/21/24
03:52
Sodium 136
Potassium 4.3
Chloride 104
Carbon Dioxide 24
BUN 17
Creatinine 1.1
Glucose 125 H
Calcium 7.1 L
Vital Signs:
Vital Signs
Temp Pulse Resp BP Pulse Ox
97.8 F 88 16 116/63 98
09/21/24 07:56 09/21/24 08:18 09/21/24 07:56 09/21/24 08:18 09/21/24 07:56
I&O
09/20/24 09/21/24 09/22/24
06:59 06:59 06:59
Intake Total 3350 / 3350 890 / 890
Output Total 775 / 775
Balance 2575 / 2575 890 / 890
Review of Systems
-
History Source: Patient
All other systems: Reviewed and negative
--- NOTE | 2024-09-21 11:44 | W.DS.TRANS ---
DC Summary - Care Advocate
-
Discharge Instructions:
Discharge Diagnosis/Procedures Intestinal pseudo-obstruction with dysmotility,
vitamin D deficiency, right knee pseudogout
flare, scleroderma
Diet Low Residue
Activity As tolerated
Driving Restrictions As prior to admission
Bathing Restrictions None
Instructions:
Stand-Alone Forms:
Changes to Home Medications: No
Discharge Medications:
DC Medications w/original date entered in [employer]
aspirin 81 mg tablet,delayed release 81 mg PO HS Blood clot prevention/tx 06/28/20
atorvastatin 80 mg tablet 80 mg PO DAILY High cholesterol 06/28/20
pyridostigmine bromide 60 mg tablet 30 mg PO BID Neurological Condition 03/19/23
pantoprazole 40 mg tablet,delayed release (Protonix) 40 mg PO DAILY GERD 02/29/24
amlodipine 5 mg tablet 5 mg PO DAILY blood pressure #30 tabs 08/12/24
prucalopride 2 mg tablet (Motegrity) 2 mg PO HS Constipation 08/18/24
prednisone 5 mg tablet 5 mg PO DAILY inflammation 09/18/24
ergocalciferol (vitamin D2) 1,250 mcg (50,000 unit) capsule 50,000 unit PO Q7D #8 caps 09/21/24
metoclopramide HCl 5 mg tablet 10 mg (2 x 5 mg) PO TID #0 tabs 09/21/24
polyethylene glycol 3350 17 gram oral powder packet 17 g PO BID #0 ea 09/21/24
rifaximin 550 mg tablet (Xifaxan) 550 mg PO TID #0 tabs 09/21/24
Home Medication Changes
Pending Results: No
--- NOTE | 2024-09-21 11:52 | CM ---
Reviewed the chart notes and spoke with the patient at the bedside. IMM reviewed. CM continues to be available to patient/family and is monitoring medical plan for needs at discharge.
Plan: Discharge to home today. Patient's son will provide transportation home.
== END 2024-09-21 12:23 | disposition home or self-care (01) | DRG 391 ==
LOC: 2 NORTH 01:50
PROVIDERS: Physician Assistant; ADMITTING PHYSICIAN Hospitalist; ATTENDING PHYSICIAN Hospitalist; CONSULT PHYSICIAN Internal Medicine Gastroenterology; CONSULT PHYSICIAN Orthopaedic Surgery; EMERGENCY PHYSICIAN Student in an Organized Health Care Education/Training Program; FAMILY PHYSICIAN Family Medicine
DX: K59.89 Other specified functional intestinal disorders (principal); E43 Unspecified severe protein-calorie malnutrition; M80.08XA Age-related osteoporosis with current pathological fracture, vertebra(e), initial encounter for fracture; R64 Cachexia; Z68.1 Body mass index [BMI] 19.9 or less, adult; M34.9 Systemic sclerosis, unspecified; I25.10 Atherosclerotic heart disease of native coronary artery without angina pectoris; I10 Essential (primary) hypertension; J84.10 Pulmonary fibrosis, unspecified; D63.8 Anemia in other chronic diseases classified elsewhere; M11.261 Other chondrocalcinosis, right knee; K22.4 Dyskinesia of esophagus; E78.00 Pure hypercholesterolemia, unspecified; F03.90 Unspecified dementia, unspecified severity, without behavioral disturbance, psychotic disturbance, mood disturbance, and anxiety; K21.9 Gastro-esophageal reflux disease without esophagitis; K31.84 Gastroparesis; R62.7 Adult failure to thrive; E11.43 Type 2 diabetes mellitus with diabetic autonomic (poly)neuropathy; Z95.5 Presence of coronary angioplasty implant and graft; Z79.899 Other long term (current) drug therapy; Z79.84 Long term (current) use of oral hypoglycemic drugs; Z79.82 Long term (current) use of aspirin; Z79.52 Long term (current) use of systemic steroids; Z11.52 Encounter for screening for COVID-19
CPT/HCPCS: 73564; 74177; 80048; 80053; 81003; 81015; 82306; 82962; 83036; 83605; 83690; 83735; 83970; 84100; 84443; 85025; 85027; 87502; 87811; 93005; 96365; 96366; 96375; 97110; 97162; 97166; 99285; Q9967

== ENCOUNTER 2024-10-14 10:48 | Emergency (ER) | payer OTHER, SELFPAY ==
[2024-10-14 10:54] VITALS: BP 163/100
[2024-10-14 11:42] VITALS: BP 127/68
[2024-10-14 11:44] VITALS: BP 127/68; BMI 19.4
[2024-10-14 11:54] LABS: Hematocrit 29.2 % (39.0-52.0); Hemoglobin 9.2 g/dL (13.0-18.0); Mean Corp Hgb Conc. 31.5 g/dL (33.0-37.0); Mean Corpuscular Hgb 25.3 pg (27.0-31.0); Mean Corpuscular Volume 80.2 fL (80.0-94.0); Mean Platelet Volume 9.4 fL (7.4-10.4); Platelet Count 331 10^3/uL (130-400); Red Blood Cell Count 3.64 10^6/uL (4.70-6.10); Red Cell Dist. Width 19.1 % (11.5-14.5); White Blood Cell Count 13.1 10^3/uL (4.8-10.8)
[2024-10-14 12:00] VITALS: BP 132/63
[2024-10-14 13:30] LABS: ALT (SGPT) 17 U/L (0-50); AST (SGOT) 20 U/L (17-59); Albumin 4.1 g/dl (3.5-5.0); Alkaline Phosphatase 57 U/L (38-126); Blood Urea Nitrogen 27 mg/dl (9-20); Calcium 7.2 mg/dl (8.4-10.2); Carbon Dioxide 25 mmol/L (22-30); Chloride 103 mmol/L (98-107); Estimated Creatinine Clearance 59 ml/min; Glucose 197 mg/dl (70-99); Magnesium 0.4 mg/dl (1.6-2.3); Phosphorus 3.8 mg/dl (2.5-4.5); Potassium 3.9 mmol/L (3.5-5.1); Sodium 140 mmol/L (135-145); Total Bilirubin 0.6 mg/dl (0.2-1.3); Total Protein 6.5 g/dl (6.3-8.2); eGFR > 60.00
[2024-10-14] MEDS: MAGNESIUM OXIDE 1000 MG PO (14:19)
[2024-10-14] MEDS: MAGNESIUM SULFATE 100 IV (14:19)
[2024-10-14] MEDS: CALCIUM GLUCONATE 100 IV (14:20)
[2024-10-14 17:50] LABS: ALT (SGPT) 16 U/L (0-50); AST (SGOT) 18 U/L (17-59); Albumin 3.8 g/dl (3.5-5.0); Alkaline Phosphatase 73 U/L (38-126); Blood Urea Nitrogen 22 mg/dl (9-20); Calcium 8.4 mg/dl (8.4-10.2); Carbon Dioxide 23 mmol/L (22-30); Chloride 104 mmol/L (98-107); Estimated Creatinine Clearance 59 ml/min; Glucose 114 mg/dl (70-99); Sodium 139 mmol/L (135-145); Total Bilirubin 0.7 mg/dl (0.2-1.3); Total Protein 6.5 g/dl (6.3-8.2); eGFR > 60.00
--- NOTE | 2024-10-14 18:16 | ED.GENMED ---
History of Present Illness
General
Chief Complaint: Abnormal Lab Value
Time Seen by Provider: 10/14/24 11:24
History of Present Illness
History of Present Illness:
74-year-old male presents the emergency department due to low calcium. He has intestinal pseudoobstruction and gastroparesis secondary to systemic scleroderma, has chronic GI absorption problems. Had outpatient labs showing a low calcium I sent to
the ED. He reports he feels mildly fatigued with diffuse muscle cramps but denies any significant abdominal pain
Past History
Past History
ED Past Medical History: CAD, GERD, HTN, Hypercholesterolemia, NIDDM, [place] and Other (scleroderma, SBO,, PNA, Pulmonary fibrosis, Gastroporesis)
ED Past Surgical History: Cardiac (Stents X 6) and Cholecystectomy
Social History
Tobacco: Non-smoker
Alcohol: None
Drug: None
Personal:
Living: with family
Employment: Retired
Family History
Family History: CAD
Review of Systems
Review of Systems
Allergies reviewed?: Yes
All Other Systems: ROS reviewed and negative except as documented in HPI and ROS
Phy Exam
Physical Exam
Physical Exam:
GEN: Well appearing, NAD, WDWN
HEENT: Oral mucosa moist, no scleral icterus
Cardiac: Regular rate
Lung: No respiratory distress, no tachypnea
Abdomen: Soft, grossly nontender
MSK: No gross deformity or injuries
Skin: Good color, no pallor or jaundice, no rashes
Neuro: AO x3, moves all extremities freely
Psych: Calm, cooperative
Course
Orders/Labs/Results
Orders:
Orders
10/14/24 11:30
Electrocardiogram (*1) Urgent
Reason for Study: QTc Monitoring
EKG- Treatment ONCE
10/14/24 11:41
Complete Blood Count/No Diff Urgent
10/14/24 12:57
Comprehensive Metabolic Panel Urgent
Magnesium Urgent
Phosphorus Urgent
10/14/24 13:40
Magnesium Oxide 1,000 mg PO NOW STA
10/14/24 13:54
Magnesium Sulfate 4 Gram/100Ml [Magnesium Sulfate] 4 gram in 100 ml IV NOW
10/14/24 14:00
Calcium Gluconate 2 gram/100mL [Calcium Gluconate] 2 gram in 100 ml IV ONCE
10/14/24 17:19
CMP [Comprehensive Metabolic Panel] Routine
Magnesium Routine
Comment: ADD ON
10/14/24 17:53
Add On- LAB Urgent
Tests Added?: magnesium
Abnormal Lab Results
10/14/24 10/14/24 10/14/24
11:41 12:57 17:19
WBC 13.1 H 10^3/uL
(4.8-10.8)
RBC 3.64 L 10^6/uL
(4.70-6.10)
Hgb 9.2 L g/dL
(13.0-18.0)
Hct 29.2 L %
(39.0-52.0)
MCH 25.3 L pg
(27.0-31.0)
MCHC 31.5 L g/dL
(33.0-37.0)
RDW 19.1 H %
(11.5-14.5)
BUN 27 H mg/dl 22 H mg/dl
(9-20) (9-20)
Glucose 197 H mg/dl 114 H mg/dl
(70-99) (70-99)
Calcium 7.2 L mg/dl
(8.4-10.2)
Magnesium 0.4 L* mg/dl
(1.6-2.3)
10/14/24 11:41
10/14/24 17:19
Vital Signs
Initial and Last Documented VS:
Initial Vital Signs
Temp Pulse Resp BP Pulse Ox
98.6 F 111 16 163/100 100
10/14/24 10:54 10/14/24 10:54 10/14/24 10:54 10/14/24 10:54 10/14/24 10:54
Last Documented Vital Signs
Temp Pulse Resp BP Pulse Ox
98.6 F 85 18 155/84 98
10/14/24 10:54 10/14/24 18:21 10/14/24 18:21 10/14/24 18:21 10/14/24 18:21
MDM/Problems Addressed
MDM/Problems Addressed:
Patient was initially offered admission due to critically low exam however he declined, was treated with IV and p.o. magnesium as well as IV calcium in the emergency department with dramatic improvement in labs. He is counseled on importance of
oral magnesium supplementation to add to his daily regimen. Recommend outpatient labs within the next week to reassess electrolytes
*Critical Care Note
Total Time (30-74mins, 75-104mins- exclusive of procedures): Not Applicable
ED Attending Note
-
Portions of this chart may have been created with voice recognition software.� Occasional wrong word or��sound alike� substitutions may have occurred due to the inherent limitations of voice recognition software.
Discharge Plan
Departure
Patient Disposition: Home (Routine Discharge)
Date of Disposition: 10/14/24
Time of Disposition: 18:16
Patient with high blood pressure during this ER visit?: No
Discharge Problem:
Hypocalcemia, Hypomagnesemia
Instructions: Hypocalcemia (DC), Hypomagnesemia
Prescriptions:
No Action
aspirin 81 MG tablet,delayed release (DR/EC)
81 mg PO HS
atorvastatin 80 MG tablet
80 mg PO DAILY
pyridostigmine bromide 60 mg tablet
30 mg PO BID
pantoprazole [Protonix] 40 mg tablet,delayed release (DR/EC)
40 mg PO DAILY
amlodipine 5 mg Tablet
5 mg PO DAILY Qty: 30 0RF
prucalopride [Motegrity] 2 mg tablet
2 mg PO HS
Xifaxan 550 mg Tablet
550 mg PO TID Qty: 0 0RF
metoclopramide HCl 5 mg Tablet
10 mg PO TID Qty: 0 0RF
prednisone 1 mg Tablet
5 mg PO DAILY
ergocalciferol (vitamin D2) 1,250 mcg (50,000 unit) capsule
50,000 unit PO DESAI
ibuprofen-acetaminophen [Advil Dual Action] 125-250 mg Tablet
1 tab PO Q8HPRN PRN (Reason: mild pain)
Referrals:
Tamara Bell MD [Family Provider] -
Activity Restrictions/Additional Instructions:
Please begin taking a magnesium supplement. These are over the counter. 500mg-1000mg daily. Magnesium citrate and magnesium glycinate are the most bioavailable forms, meaning they will digest the best
Interventions
Interventions:
*Risk Screen - Suicide Last Done: 10/14/24 11:44
*General Assessment Last Done: 10/14/24 11:44
*Neglect/Abuse Screening Last Done: 10/14/24 11:44
*ED- Fall Risk Assessment Last Done: 10/14/24 11:44
*ED COVID-19 Vaccine History Last Done: 10/14/24 11:44
*Nursing Disposition Last Done: 10/14/24 18:28
Discharge Date and Time
Discharge Date/Time: 10/14/24 18:29
Print Language: BELARUSIAN
[2024-10-14 18:21] VITALS: BP 155/84
== END 2024-10-14 18:29 | disposition home or self-care (01) ==
LOC: EMR 10:48
PROVIDERS: Physician Assistant; EMERGENCY PHYSICIAN Emergency Medicine; FAMILY PHYSICIAN Family Medicine
DX: E83.42 Hypomagnesemia (principal); E83.51 Hypocalcemia; R25.2 Cramp and spasm; R53.83 Other fatigue; I25.10 Atherosclerotic heart disease of native coronary artery without angina pectoris; I10 Essential (primary) hypertension; E11.43 Type 2 diabetes mellitus with diabetic autonomic (poly)neuropathy; K31.84 Gastroparesis; M34.9 Systemic sclerosis, unspecified; E78.00 Pure hypercholesterolemia, unspecified; J84.10 Pulmonary fibrosis, unspecified; I25.2 Old myocardial infarction; Z87.01 Personal history of pneumonia (recurrent); Z95.5 Presence of coronary angioplasty implant and graft; Z79.82 Long term (current) use of aspirin; Z90.49 Acquired absence of other specified parts of digestive tract
CPT/HCPCS: 99284; 96365; 96366; 96375; 80053; 83735; 84100; 85027; 93005

== ENCOUNTER 2025-03-08 13:37 | Inpatient (IN) | payer MEDICARE, OTHER, SELFPAY ==
[2025-03-08] VITALS (7 sets, daily range): BP systolic 141–164; BP diastolic 71–86; BMI 23.0; BMI 21.5
--- NOTE | 2025-03-08 10:23 | ED.GENMED ---
History of Present Illness
General
Chief Complaint: Abdominal Symptoms
Source: patient
Exam Limitations: none
Time Seen by Provider: 03/08/25 09:31
Nursing documentation reviewed up to this point in time: agreed with
History of Present Illness
History of Present Illness:
see MDM
Past History
Past History
ED Past Medical History: CAD, GERD, HTN, Hypercholesterolemia, NIDDM, [place] and Other (scleroderma, SBO,, PNA, Pulmonary fibrosis, Gastroporesis)
ED Past Surgical History: Cardiac (Stents X 6) and Cholecystectomy
Social History
Tobacco: Non-smoker
Alcohol: None
Drug: None
Personal:
Living: with family
Employment: Retired
Family History
Family History: CAD
Review of Systems
Review of Systems
Allergies reviewed?: Yes
All Other Systems: Not applicable
Phy Exam
Physical Exam
Physical Exam:
GENERAL: Alert , in no apparent distress
EYE: pupils equal and reactive
NECK: Supple
ENT: o/p clr, DRY mouth
CARDIAC: Regular rate and rhythm .
LUNGS: Clear breath sounds bilaterally, no acute respiratory distress, no wheezes/rales/rhonchi
ABDOMEN: Soft, distended, mildly tender upper epigastric region, no r/g, no cvat, normal bowel sounds
NEUROLOGICAL: Alert and oriented, no focal neuro deficits
SKIN: Warm and dry, dry; scleroderma
MUSCULOSKELETAL: scleroderma contractures of fingers;
no edema
PSYCH: Normal and appropriate interaction.
Course
Orders/Labs/Results
Orders:
Orders
03/08/25 09:42
0.9% Sodium Chloride 1000 ml [Nss] 1,000 ml IV BOLUS
Ondansetron Injectable [Zofran] 4 mg IV NOW STA
03/08/25 09:43
Electrocardiogram (*1) Urgent
Reason for Study: Abdominal Pain
EKG- Treatment ONCE
03/08/25 09:46
CT Abd/Pel (IV only)-DH only Urgent
Comment:
Reason For Exam: abd pain, diarrhea, vomiting, h/o obstruction
03/08/25 10:03
Complete Blood Count/With Diff Urgent
Comprehensive Metabolic Panel Urgent
Lipase Urgent
Magnesium Urgent
03/08/25 12:35
Magnesium Sulfate 1 grams 0.9% Sodium Chloride 100 ml [Nss] 100 ml IV NOW
Pantoprazole [Protonix IV] 40 mg IV NOW STA
03/08/25 12:42
Magnesium Sulfate 4 Gram/100Ml [Magnesium Sulfate] 4 gram in 100 ml IV NOW
03/08/25 13:17
Admit/Transfer Patient As Directed
Co-Sign Provider:
Level of Care: Inpatient admission
Assign to:: Medical/Surgical
Physician / Group: leonardo meyer
Diagnosis: Diarrhea/ enteritis pos abx assoc, abbe, hypomag
Reason for Hospitalization: Diarrhea/ enteritis pos abx assoc, abbe, hypomag
Expected length of stay greater than two midnights?: Yes
ELOS- Estimated Length of Stay in days: 3
I certify the patient meets the requirements for IP care: Yes
Code Status As Directed
Resuscitation Status: Full Code
03/08/25 13:21
PRN Pain Medication Management As Directed
May give lesser potent ordered pain med per pt: Yes
preference::
Protocol:: Medication orders for pain may be administered in a
manner that supports deferring to patient preference
when the pt is:
- Requesting an ordered lesser potent pain medication.
Least to most potent pain medications are defined
as: acetaminophen < NSAID < tramadol < opioids
(morphine, oxycodone, hydromorphone).
- Requesting a lesser dose of the same medication IF
ORDERED.
- Requesting a less intrusive route of administration
if both routes are prescribed by the provider (PO <
IV).
03/08/25 13:26
GASTROINTESTINAL CONSULT Routine
Consulting Provider: Raquel Drake
Was physician already notified: Yes
Reason for consult: Diarrhea, gastroparesis
03/08/25 15:53
C DIFF [C difficile Antigen & Toxins] Urgent
SEBAS Source: Feces/Stool
Specimen Description:
Date Specimen was Collected: 03/08/25
Time Specimen was Collected: 09:45
Stool Culture Urgent
SEBAS Source: Feces/Stool
Specimen Description:
Date Specimen was Collected: 03/08/25
Time Specimen was Collected: 09:46
03/08/25 16:15
0.9% Sodium Chloride 1000 ml [Nss] 1,000 ml IV 80 mls/hr
Ondansetron Injectable [Zofran] 4 mg IV Q6HPRN PRN
Rifaximin [Xifaxan] 550 mg PO TID
03/08/25 16:15
Activity As Directed
Activity Level: As Tolerated
Intake/ Output As Directed
Frequency: Per unit guidelines
Vital Signs As Directed
Frequency: Per unit guidelines
Weight As Directed
Frequency: Daily
DX Deep Vein Thrombosis Video Routine
03/08/25 18:00
Enoxaparin Sodium [Lovenox] 40 mg SC QPM
03/08/25 22:00
Aspirin Low Dose EC [Aspir Low (Enteric Coated)] 81 mg PO HS
03/09/25 06:00
Complete Blood Count/With Diff IN AM
Comprehensive Metabolic Panel IN AM
Magnesium IN AM
03/09/25 08:00
Atorvastatin [Lipitor] 80 mg PO DAILY
Losartan [Cozaar] 50 mg PO DAILY
Metoclopramide [Reglan] 10 mg IV DAILY
Pantoprazole [Protonix IV] 40 mg IV DAILY
Prednisone [Deltasone] 5 mg PO DAILY
03/10/25 06:00
Complete Blood Count/With Diff IN AM
Comprehensive Metabolic Panel IN AM
Magnesium IN AM
03/11/25 06:00
Complete Blood Count/With Diff IN AM
Comprehensive Metabolic Panel IN AM
Magnesium IN AM
Abnormal Lab Results
03/08/25
10:03
WBC 11.1 H 10^3/uL
(4.8-10.8)
MCHC 32.0 L g/dL
(33.0-37.0)
RDW 25.4 H %
(11.5-14.5)
Abs Immat Gran (auto) 0.1 H 10^3/uL
(0-0.05)
Absolute Neuts (auto) 8.4 H 10^3/uL
(1.4-6.5)
Absolute Monos (auto) 1.1 H 10^3/uL
(0.1-0.6)
Neutrophils % 76.0 H %
(42.2-75.2)
Lymphocytes % 11.1 L %
(20.5-51.1)
Monocytes % 10.1 H %
(1.7-9.3)
Chloride 110 H mmol/L
(98-107)
BUN 27 H mg/dl
(9-20)
Creatinine 1.4 H mg/dL
(0.7-1.3)
Glucose 143 H mg/dl
(70-99)
Magnesium 1.2 L mg/dl
(1.6-2.3)
03/08/25 10:03
03/08/25 10:03
Vital Signs
Initial and Last Documented VS:
Initial Vital Signs
Temp Pulse Resp BP Pulse Ox
36.9 C 102 16 155/86 98
03/08/25 09:20 03/08/25 09:20 03/08/25 09:20 03/08/25 09:20 03/08/25 09:20
Last Documented Vital Signs
Temp Pulse Resp BP Pulse Ox
36.6 C 70 18 164/78 95
03/08/25 16:15 03/08/25 16:15 03/08/25 16:15 03/08/25 16:15 03/08/25 16:15
MDM/Problems Addressed
Differential Diagnosis Includes:
see MDM
MDM/Problems Addressed:
Note:
CHIEF COMPLAINT(S)
Diarrhea and abdominal pain.
HISTORY OF PRESENT ILLNESS
The patient, a male with a history of malabsorption and gastroparesis, has been experiencing diarrhea for the past ten uninterrupted days. he had diarrhea spontaneously for a few days before he had a tooth extracted and was placed on amoxicillin (5
days ago). The diarrhea has persisted despite cessation of food intake for the past three to four days. The patient reports that any attempt to eat or drink results in immediate diarrhea, which is described as purely liquid. To manage hydration,
the patient has been consuming meal replacement shakes, which appear to stay down better than other substances. but he ultimately has to run to the bathroom after any oral intake.
The patient also experiences significant abdominal pain described as severe and centralized in the epigastric region, although the pain has decreased since its onset on 3 days ago and has resolved. The pain does not radiate to the back. The patient
denies any vomiting currently but reports a single episode of vomiting which alleviated some discomfort temporarily. There is no reported fever, and the patient notes they rarely experience fevers. The patient denies taking any antiemetic medication
recently and is seeking medical intervention due to deteriorating condition and increasing symptoms.
he has long history of gastroparesis, pseudoSBO, electrolyte abnormalities; he has severe scleroderma
has seen GI
PAST MEDICAL AND SURGICAL HISTORY
The patient has a history of malabsorption and gastroparesis. The patient has had issues with electrolytes, particularly calcium. A history of Clostridium difficile infection was noted approximately two to three years ago. The patient has not had a
mechanical bowel obstruction but has experienced ileus previously. Surgical history includes a cholecystectomy (removal of the gallbladder).
SOCIAL DETERMINANTS AFFECTING HEALTH
The patient reports experiencing significant stress related to their current health condition and expressed difficulty managing symptoms at home.
MEDICATIONS
The patient is currently taking acetaminophen (Tylenol) on a scheduled regimen.
PHYSICAL EXAM
- Abdominal: Pain primarily in the epigastric region, described as generalized and non-radiating. The patient experiences lightheadedness upon sitting.
Nursing notes reviewed and vital signs reviewed.
PLAN
1. Administer intravenous fluids to address dehydration.
2. Administer ondansetron (Zofran) for nausea management through IV.
3. Conduct electrolyte panel to assess hydration status.
4. Consider obtaining a sample for stool analysis if diarrhea persists, to rule out infections.
5. Schedule imaging such as a computed tomography (CT) scan if necessary for further diagnosis.
DIFFERENTIAL DIAGNOSIS
The Differential Diagnosis includes, in no particular order and is not limited to:
1. Viral gastroenteritis
2. Clostridium difficile infection
3. Irritable bowel syndrome
4. Inflammatory bowel disease
5. Partial bowel obstruction
6. Medication-induced diarrhea (e.g., antibiotics)
7. Malabsorption syndrome exacerbation
8. Pancreatic insufficiency
9. Electrolyte imbalance
10. Non-ulcer dyspepsia
CARE-UPDATE
03/08/25 - 12:16
The patients current condition includes low magnesium levels at 1.6, slight dehydration, and elevated renal function. They report persistent nausea and inability to tolerate oral intake despite IV medication. Diagnostic considerations include
gastritis, reflux, ileus, and enteritis. A stool sample is necessary to rule out C. difficile infection. Admission is recommended due to persistent symptoms and weakness, and the patient has consented to this. The treatment plan includes IV Protonix
administration to manage stomach symptoms.
*Pulse Oximetry
SaO2: 96
Oxygen Mode of Delivery: Room air
Patient hypoxic: no (98)
*Critical Care Note
Total Time (30-74mins, 75-104mins- exclusive of procedures): Not Applicable
ED Attending Note
-
Portions of this chart may have been created with voice recognition software.� Occasional wrong word or��sound alike� substitutions may have occurred due to the inherent limitations of voice recognition software.
Discharge Plan
Departure
Patient Disposition: Admit
Date of Disposition: 03/08/25
Time of Disposition: 12:36
Admit to: Med/Surg
Presentation/result/management discussed w/ accepting MD/DO: Hospitalist
Condition: Fair
Discharge Problem:
Dehydration, Enteritis, Gastritis
Interventions
Interventions:
*Risk Screen - Suicide Last Done: 03/08/25 16:15
*General Assessment Last Done: 03/08/25 10:20
*Neglect/Abuse Screening Last Done: 03/08/25 09:20
*ED- Fall Risk Assessment Last Done: 03/08/25 10:20
*ED COVID-19 Vaccine History Last Done: 03/08/25 16:15
*Nursing Disposition Last Done: 03/08/25 16:12
TG-Xjdqkc-Mdwiyeqobo Assessment Last Done: 03/08/25 10:20
Discharge Date and Time
Discharge Date/Time: 03/08/25 16:08
[2025-03-08 10:34] LABS: Hematocrit 41.5 % (39.0-52.0); Hemoglobin 13.3 g/dL (13.0-18.0); Mean Corp Hgb Conc. 32.0 g/dL (33.0-37.0); Mean Corpuscular Volume 84.9 fL (80.0-94.0); Nucleated Red Blood Cells % 0 % (-); Platelet Count 264 10^3/uL (130-400); Red Cell Dist. Width 25.4 % (11.5-14.5)
[2025-03-08 10:38] LABS: ALT (SGPT) 20 U/L (0-50); AST (SGOT) 21 U/L (17-59); Albumin 4.8 g/dl (3.5-5.0); Alkaline Phosphatase 74 U/L (38-126); Blood Urea Nitrogen 27 mg/dl (9-20); Calcium 9.4 mg/dl (8.4-10.2); Carbon Dioxide 23 mmol/L (22-30); Chloride 110 mmol/L (98-107); Estimated Creatinine Clearance 49 ml/min; Glucose 143 mg/dl (70-99); Lipase 71 U/L (23-300); Magnesium 1.2 mg/dl (1.6-2.3); Potassium 4.3 mmol/L (3.5-5.1); Sodium 143 mmol/L (135-145); Total Protein 7.5 g/dl (6.3-8.2); eGFR 52.74
[2025-03-08] MEDS: NSS 1000 IV ×2 (11:28→16:53)
[2025-03-08] MEDS: ZOFRAN 4 MG IV ×2 (11:28→19:36)
[2025-03-08 11:35] LABS: Acanthocytes Slight; Anisocytosis 2+; Normal RBC Morphology No; Ovalocytes 1+
--- NOTE | 2025-03-08 12:52 | HPS.HSE ---
Family Physician
-
Family Physician: Tamara Bell
Chief Complaint
-
Diarrhea x 10 days
History of Present Illness
75-year-old male complaining of diarrhea x 10 days watery in nature. He reports diarrhea is exacerbated with eating or drinking however he has been trying to consume meal replacement shakes Ensure to stay hydrated. During course of diarrhea he was
also on amoxicillin started 5 days ago for a tooth extraction, which exacerbated his diarrhea. His last dose was yesterday 03/07/2025 . The patient reports slight abdominal pain umbilical starting 3 days ago with 1 episode of vomiting on 3
days ago. He typically takes his motility medication Reglan, Mestinon, Motegrity before eating. His normal bowel pattern is formed stool once a day however is having recurrent watery diarrhea. He states the last time he took his medication was 2
days ago. The patient denies fever, chills, chest pain, palpitations, cough, shortness of breath, vomiting, urinary symptoms.
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
CAD times cardiac stents x 6, HTN, DM 2, pulmonary fibrosis
Medical History
Past Medical History
Past Medical History: Reports Other
Additional Past Medical History:
SIBO / CIPO
ASCVD
GERD
Hypertension
DM-II
Scleroderma
Esophageal Dysmotility
Pulmonary Fibrosis
Vitamin D deficiency
Past Surgical History: Reports Other
Additional Past Surgical History:
Cardiac stent x6
Cholecystectomy
Social History
Unable to obtain full social history at this time due to: Dementia
Tobacco: Non-smoker
Alcohol: None
Drug: None
Personal:
Employment: Retired
Family History
Family History: Not pertinent
Allergies / Home Medications
Allergies reflects when Allergies were last updated in [facility].
Home Medications with original date entered in [facility]
Allergy/Medication List:
Allergies
Allergy/AdvReac Type Severity Reaction Status Date / Time
No Known Allergies Allergy Verified 03/08/25 09:19
Home Medications
aspirin 81 mg tablet,delayed release 81 mg PO HS Blood clot prevention/tx 06/28/20
atorvastatin 80 mg tablet 80 mg PO DAILY High cholesterol 06/28/20
pyridostigmine bromide 60 mg tablet 60 mg PO BID Neurological Condition 03/19/23
prucalopride 2 mg tablet (Motegrity) 2 mg PO HS Constipation 08/18/24
rifaximin 550 mg tablet (Xifaxan) 550 mg PO TID #0 tabs 09/21/24
prednisone 1 mg tablet 5 mg PO DAILY 10/14/24
glimepiride 2 mg tablet 2 mg PO DAILY 03/08/25
losartan 50 mg tablet 50 mg PO DAILY 03/08/25
metoclopramide HCl 5 mg tablet 10 mg PO DAILY 03/08/25
nifedipine 30 mg PO DAILY 03/08/25
Review of Systems
-
History Source: Patient
A 12 point ROS was completed and negative except as noted: Yes
Constitutional: Denies Fever or Chills
EENT: Denies Sore Throat or Runny Nose
Respiratory: Denies Cough or Trouble Breathing
Cardiac: Denies Chest Pain, Diaphoresis, Palpitations or Syncope
Abdomen/GI: Reports Abdominal Pain (Umbilical), Nausea (Chronic) and Diarrhea (Watery x 10 days); Denies Constipated, Bloody Stools or Black Stools
: Denies Dysuria, Frequency, Flank Pain, Incontinence, Difficulty Voiding or Urgency
Musculoskeletal: Denies Joint Pain or Edema
Skin: Denies Itching or Rash
Neurological: Denies Dizzy, Headache or Weakness
Endocrine: Reports No Symptoms
Hematologic/Lymphatic: Reports No Symptoms
Psych: Reports Calm
Physical Exam
Vital Signs
Vital Signs
Temp Pulse Resp BP Pulse Ox
98.5 F 77 16 146/82 96
03/08/25 10:20 03/08/25 10:20 03/08/25 10:20 03/08/25 10:20 03/08/25 10:24
Physical Exam
General: Conversant; No Fever, Chills or Sweats
HEENT: NormoCephalic, Anicteric, PERRLA, [address] Conjunctivae, No Ptosis and Other (Dry oral mucosa)
Respiratory: Clear; No Wheezes, Rales or Rhonchi
Cardiac: S1/S2 and Regular Rhythm; No Murmur, Rub, Gallop or Peripheral Edema
Breast: Deferred by me
GI: Soft, Non Distended, Tender (Mild around umbilicus) and No Hepatosplenomegaly
Rectal: Deferred by Provider
Genito-urinary: Deferred by me
Musculoskeletal: No Clubbing, No Cyanosis and No Edema
Skin: Warm and Dry; No Rash
Neuro: AO x 3, No Motor Deficits, Nonfocal/grossly intact, Cranial Nerves Intact and No Sensory Deficits; No Slurred Speech, Facial Droop, Tremors or Sedated
Psych: Calm
Laboratory Results
-
03/08/25 10:03
03/08/25 10:03
Laboratory Results
Total Bilirubin 1.1 mg/dl (0.2-1.3) 03/08/25 10:03
AST 21 U/L (17-59) 03/08/25 10:03
ALT 20 U/L (0-50) 03/08/25 10:03
Alkaline Phosphatase 74 U/L (38-126) 03/08/25 10:03
Lipase 71 U/L (23-300) 03/08/25 10:03
Impression/Plan
-
Impression/plan:
Admit to MedSurg
#Acute diarrhea/enteritis/ileus possible exacerbation by antibiotics
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
Diarrhea x 10 days recent amoxicillin x 5 days for tooth extraction
Patient follows with Dr. Jacome GI at [place]
-Consult GI
-Continue Reglan 10 mg daily IV
- HOLD pyridostigmine, Motegrity 2 mg at bedtime due to diarrhea
- IV Protonix
- IV Zofran
- Check stool studies
CT abdomen pelvis: Probable gastritis change and gastroesophageal reflux. Neoplasm such as lymphoma is less likely although not definitely excluded.
Probable enteritis/ileus.
Questionable cystitis.
#FLORENCE secondary to diarrheal losses
Creat 1.4 baseline 1
-IV NSS 1 L, continue IV NSS 80 cc an hour
#Hypomagnesemia due to diarrheal losses
Mag 1.2
-4 g mag rider
-Check mag in a.m.
#Scleroderma
- Continue prednisone 5 mg daily
-Follows with Dr. Meza
#History of small intestinal bacterial overgrowth
#Severe protein calorie malnutrition history�BMI 23
#CAD times cardiac stents x 6
- Continue aspirin 81 mg daily, atorvastatin 80 mg daily, losartan 50 mg daily
# HTN
BP 146/82, continue losartan 50 mg daily, nifedipine 30 mg daily with hold parameters
#DM 2
A1c 6.01 October 2024
Accu-Cheks with SSI
- Hold glimepiride
#Pulmonary fibrosis
#Right knee pseudogout hx
#Severe vitamin D deficiency with hypocalcemia
Currently no longer on vitamin D, calcium 9.4
DVT prophylaxis
Subcu Lovenox
Full code
[2025-03-08] MEDS: PROTONIX IV 40 MG IV (13:06)
[2025-03-08] MEDS: MAGNESIUM SULFATE 100 IV (13:07)
--- NOTE | 2025-03-08 13:51 | W.PN.UPDATE ---
Update Note
Progress Note Update
This is an addendum to H&P written by Josee Sanchez on 03/08/2025. �Patient seen and examined independently with MAINTENANCE WORKER.
75-year-old male past medical history of chronic intestinal pseudoobstruction, dysmotility, scleroderma, small intestinal bacterial overgrowth, esophageal dysmotility, pseudogout, vitamin D deficiency, hypomagnesemia, chronic anemia, diabetes,
hypertension, hyperlipidemia, pulmonary fibrosis, T12 compression fracture, presenting with 10 days of dominantly diarrhea with nausea and vomiting and epigastric pain similar to prior episodes of scleroderma flareups. �Diarrhea started before tooth
extraction for which she was placed on amoxicillin which he completed earlier this week.
Vital signs normal.
Labs show leukocytosis. �Magnesium 1.2. �Creatinine 1.4.
CT abdomen pelvis showed probable gastritis/GERD. �Probable enteritis/ileus. �Questionable cystitis.
Patient with symptoms of acute gastritis/gastroparesis/scleroderma flare possibly with component of antibiotic associated diarrhea. �Patient also with FLORENCE likely prerenal. �Also with hypomagnesemia.
Check stool culture, C. difficile. �IV fluids. �Continue IV Reglan. �Continue Protonix. �Will hold Mestinon, Motegrity for now given diarrhea. �GI consulted. �Replete magnesium.
--- NOTE | 2025-03-08 14:28 | CM ---
CM reviewed chart and met with pt bedside in ED, Lives alone in 2 story home, [address].
Independent in ADLs, personal care and ambulation at baseline, still drives and works.
Confirms prescription coverage.
PCP: Tamara Bell
Pharmacy: [phone] in [place]
Anticipate dc home, no needs. CM will continue to follow for all discharge planning needs.
[2025-03-08] MEDS: LOVENOX 40 MG SC (16:59)
[2025-03-08 17:00] LABS: Glucose - Point of Care 94 mg/dl (70-99)
[2025-03-08] MEDS: XIFAXAN 275 MG PO (20:22)
[2025-03-08] MEDS: ASPIR LOW (ENTERIC COATED) 81 MG PO (22:24)
[2025-03-09 00:11] LABS: Glucose - Point of Care 94 mg/dl (70-99)
[2025-03-09] MEDS: NSS 1000 IV (04:42)
[2025-03-09 05:26] VITALS: BMI 21.5
[2025-03-09 06:22] LABS: Glucose - Point of Care 121 mg/dl (70-99)
[2025-03-09 07:00] VITALS: BP 143/71
--- NOTE | 2025-03-09 07:13 | W.PN.HOSP.TC ---
Addendum entered and electronically signed by Erasmo Velasco MD 03/09/25 23:17:
Attending Addendum-
I saw and evaluated the patient. I reviewed the resident�s note and agree with findings and plan as documented in the resident�s note. Sub: tolerating clears ready for more solid food no diarrhea moving bowels No NV fevers chills Full 12 point ROS
reviewed and negative except as documented Exam: Vitals reviewed in chart GEN-NAD heart RRR lungs clear abd soft ND NT pos BS LE no edema
Plan:
#Acute diarrhea/enteritis/ileus possible exacerbation by antibiotics
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
resolved likely from abx
CT abdomen pelvis: Probable gastritis change and gastroesophageal reflux. Neoplasm such as lymphoma is less likely although not definitely excluded.
Probable enteritis/ileus.
Questionable cystitis.
vu PO DC home d/w GI
#FLORENCE secondary to diarrheal losses
-resolved
#Hypomagnesemia due to diarrheal losses
-resolved
#Scleroderma
- Continue prednisone 5 mg daily
-Follows with Dr. Meza
#History of small intestinal bacterial overgrowth
#Severe protein calorie malnutrition history�BMI 23
#CAD times cardiac stents x 6
- Continue aspirin 81 mg daily, atorvastatin 80 mg daily, losartan 50 mg daily
# HTN
continue losartan 50 mg daily, nifedipine 30 mg daily with hold parameters
#DM 2
A1c 6.01 October 2024
Accu-Cheks with SSI
-restart glimepirideon DC
#Pulmonary fibrosis
#Right knee pseudogout hx
#Severe vitamin D deficiency with hypocalcemia
Currently no longer on vitamin D, calcium 9.4
DVT prophylaxis
Subcu Lovenox
Time spent coordinating care, DC planning, review of DC plan of care with resident, transition of care, review of records, med rec/scripts sent electronically, consults, notes, d/w consultants, nursing, family,GI, and CM�31 mins >50% of this time
was devoted to counseling and coordination of care
Original Note:
Today's Communication/Plan
-
Low residue diet
For discharge later today
Assessment / Plan
Assessment / Plan
Acute gastric outlet obstruction
-Resolving.
-Low residue diet
-For subsequent discharge if diet is tolerated
follow-up with Dr. Esparza /Ayaz as outpatient
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
CT abdomen pelvis: Probable gastritis change and gastroesophageal reflux. Neoplasm such as lymphoma is less likely although not definitely excluded.
Probable enteritis/ileus.
Questionable cystitis.
FLORENCE
- Resolved
-Hypomagnesemia Resolved
#Scleroderma
- Continue prednisone 5 mg daily
-Follows with Dr. Meza
#History of small intestinal bacterial overgrowth
#Severe protein calorie malnutrition history�BMI 23
#CAD times cardiac stents x 6
- Continue aspirin 81 mg daily, atorvastatin 80 mg daily, losartan 50 mg daily
# HTN
BP 131/64, Continue patients Amlodipine
#DM 2
A1c 6.01 October 2024
Accu-Cheks with SSI
- Hold glimepiride
#Pulmonary fibrosis
#Right knee pseudogout hx
#Severe vitamin D deficiency with hypocalcemia
Currently no longer on vitamin D, calcium 9.4
Anticipated Discharge: Today
Subjective/Interval History
-
Date of Service: March 09, 2025
Patient seen. No new complains
Last bowel movement was yesterday. No vomiting or abdominal pains.
He is tolerating orally (clear fluids).
Vitals are stable
WBC, neutrophils are on a downward trend. Magnesium is now normal (2.1)
Jet Inspector consult noted with thanks.
Objective Data
-
Labs:
Laboratory Results
03/09/25
07:07
WBC Pending
Hgb Pending
Hct Pending
Plt Count Pending
Sodium Pending
Potassium Pending
Chloride Pending
Carbon Dioxide Pending
BUN Pending
Creatinine Pending
Glucose Pending
Calcium Pending
Total Bilirubin Pending
AST Pending
ALT Pending
Alkaline Phosphatase Pending
Vital Signs:
Vital Signs
Temp Pulse Resp BP Pulse Ox
98.1 F 68 18 155/71 96
03/08/25 23:07 03/08/25 23:07 03/08/25 23:07 03/08/25 23:07 03/08/25 23:07
I&O
03/08/25 03/09/25 03/10/25
06:59 06:59 06:59
Intake Total 960 / 960
Balance 960 / 960
Review of Systems
-
History Source: Patient
Cardiac: Denies Other (HS S1 S2, regular)
Abdomen/GI: Reports No Symptoms
Physical Exam
-
General: No Apparent Distress and Comfortable
Respiratory: Clear to Auscultation
Cardiac: Regular Rhythm and S1/S2
GI: Soft, Nontender, Nondistended, Normal Bowel Sounds and No Hepatosplenomegaly
Neuro: Awake, Alert and Oriented
Psych: Calm
Data Reviewed
-
Labs: Labs Reviewed by me, Discussed with Physician and Discussed with Patient
[2025-03-09 07:44] LABS: Hematocrit 38.3 % (39.0-52.0); Hemoglobin 12.1 g/dL (13.0-18.0); Mean Corp Hgb Conc. 31.6 g/dL (33.0-37.0); Mean Corpuscular Volume 86.1 fL (80.0-94.0); Nucleated Red Blood Cells % 0 % (-); Platelet Count 242 10^3/uL (130-400); Red Cell Dist. Width 25.0 % (11.5-14.5)
[2025-03-09 07:58] LABS: ALT (SGPT) 17 U/L (0-50); AST (SGOT) 18 U/L (17-59); Albumin 4.1 g/dl (3.5-5.0); Alkaline Phosphatase 89 U/L (38-126); Blood Urea Nitrogen 18 mg/dl (9-20); Calcium 8.5 mg/dl (8.4-10.2); Carbon Dioxide 23 mmol/L (22-30); Chloride 114 mmol/L (98-107); Estimated Creatinine Clearance 58 ml/min; Glucose 112 mg/dl (70-99); Magnesium 2.1 mg/dl (1.6-2.3); Potassium 4.3 mmol/L (3.5-5.1); Sodium 143 mmol/L (135-145); Total Protein 6.4 g/dl (6.3-8.2); eGFR > 60.00
[2025-03-09] MEDS: LIPITOR PO ×2 (09:34→09:56)
[2025-03-09] MEDS: XIFAXAN PO ×2 (09:35→09:56)
[2025-03-09] MEDS: DELTASONE PO ×2 (09:35→09:55)
[2025-03-09] MEDS: NSS (PRESERVATIVE FREE) 10 ML IV (09:36)
[2025-03-09] MEDS: PROTONIX IV 40 MG IV (09:36)
[2025-03-09] MEDS: REGLAN 10 MG IV (09:37)
[2025-03-09] MEDS: XIFAXAN 275 MG PO (10:01)
[2025-03-09] MEDS: DELTASONE 5 MG PO (10:01)
[2025-03-09] MEDS: LIPITOR 80 MG PO (10:01)
--- NOTE | 2025-03-09 10:02 | CON.GI ---
Addendum entered and electronically signed by Raquel Drake MD 03/09/25 13:52:
I saw and examined the patient.
The COPY CUTTER's note was reviewed and I agree with the note.
Impression:
Diarrhea/ Nausea/vomiting after abx for dental procedure
Chronic pseudoobstuction with dysmotility
Hx of scleroderma/SIBO
plan
Patient currently asymptomatic. Diarrhea resolved now. Denies any nausea or vomiting. Patient would like to try a low residual diet. Will advance to low residual diet as tolerated
Stool studies negative for C. difficile. Stool culture pending
Continue Reglan/Xifaxan/pantoprazole. Hold off on Motegrity/magnesium/Mestinon - ok to resume after discharge at home if no diarrhea
If tolerating diet and asymptomatic okay to follow-up with Dr. Esparza /Ayaz as outpatient
No further GI recommendation. Will sign off. Please call us back if any questions
Original Note:
Consultation
-
Date/Time Consultation Requested: 03/08/25 1326
Date/Time Consultation Performed: 03/09/25 0945
Requesting Provider: MAILE Philip
Performing Provider: Dr. Drake/MAILE Vazquez
Reason for Consultation: diarrhea/gastroparesis
Medical History
Chief Complaint / HPI
Chief Complaint: n/v/constipation/diarrhea
History of Present Illness:
75 year-old male well-known to our practice (Dr. Esparza) with history of scleroderma, ASCD, SIBO, T12 fracture managed (Steroids, back brace) diverticulitis, coffee-ground emesis in the past with negative EGD, chronic intestinal pseudoobstruction,
followed by Dr. Jacome at [facility] for SIBO/CIPO maintained on regimen of Xifaxan, Motegrity, magnesium, pantoprazole, Mestinon and Reglan presents to the emergency with 10-day history of diarrhea twice a day, 1 day history of nausea and vomiting
after initiation of amoxicillin for dental work. Asked to evaluate for the same. The patient has a longstanding history of intermittent issues associated with his chronic interstitial pseudoobstruction with dysmotility. He states that he was
doing well up until approximately 10 days ago when he started having twice a day diarrhea. He states that on Sunday he started amoxicillin for anticipated dental work. The following day he had his dental work performed and then he could not put
anything into his mouth with immediate movement of his bowels. Prior to that it was only loose bowels/watery bowels twice a day. After initiation of antibiotics as soon as he would put any kind of food into his mouth he would have immediate
defecation. This would include any liquids or Ensure shakes. He stopped using his routine medications. Because of increased defecation. He denies any fevers, chills, melena, hematochezia, chest pains or shortness of breath. His last bowel
movement was in the ER yesterday. He has been n.p.o. except for p.o. meds ever since however would not take his medications this morning without some sort of food. He is willing to take these with some applesauce. Stool is negative for C.
difficile. Stool cultures pending. On arrival WBC 11.1 now down to 9.0, hemoglobin 12.1, hematocrit 38.3, platelets 242, sodium 143, potassium 4.3, BUN 18, creatinine 1.1, glucose 112, total bilirubin 1.0, AST 18, ALT 17, alk phos 89, albumin 4.1.
CT of the abdomen and pelvis with IV contrast only shows mild fluid distention of the distal thoracic esophagus suggesting component of GERD. Redemonstration of diffuse gastric wall thickening similar to prior. Neoplasm such as lymphoma is less
likely although not definitely excluded. Probable enteritis/ileus. Questionable cystitis. The patient did have an EGD 07/29/2024 that showed normal proximal esophagus. Small amount of retained fluid in the midesophagus suctioned cleared.
[place]-colored mucosa suspicious for short segment Pickard's. Otherwise normal esophagus without any evidence of esophagitis, Margo-Resendez tear or ulcers. Multiple benign-appearing gastric polyps. Small amount of food residue in the gastric
antrum otherwise normal stomach. Small amount of food residue in examined duodenum.
Past Medical History
Past Medical History: Other (SIBO ASCVD GERD Hypertension DM-II Scleroderma suspected pulm fibrosis subacute T12 burst fx chronic panc CAD SD)
Past Surgical History: Other (Cardiac stent x6 Cholecystectomy)
Social History
Tobacco: Non-Smoker
Alcohol: None
Family History
Family History: Reviewed & Not Pertinent
Allergies / Home Medications
Allergy/AdvReac Type Severity Reaction Status Date / Time
No Known Allergies Allergy Verified 03/08/25 09:19
�Medication �Instructions �Recorded
aspirin 81 mg tablet,delayed 81 mg PO HS Blood clot 06/28/20
release prevention/tx
atorvastatin 80 mg tablet 80 mg PO DAILY High cholesterol 06/28/20
pyridostigmine bromide 60 mg tablet 30 mg PO BID Neurological Condition 03/19/23
prucalopride 2 mg tablet 2 mg PO HS Constipation 08/18/24
(Motegrity)
amlodipine 5 mg tablet 5 mg PO DAILY Blood Pressure 03/08/25
amoxicillin 500 mg capsule 500 mg PO TID Infection 03/08/25
cholecalciferol (vitamin D3) 125 125 mcg PO DAILY Supplement 03/08/25
mcg (5,000 unit) disintegrating
tablet
glimepiride 2 mg tablet 2 mg PO DAILY Diabetes 03/08/25
ibuprofen 125 mg-acetaminophen 250 2 tab PO Q8H PRN mild pain 03/08/25
mg tablet
magnesium glycinate 100 mg (as 100 mg PO DAILY Supplement 03/08/25
glycinate) tablet
metoclopramide HCl 5 mg tablet 5 mg PO DAILY N/V 03/08/25
pantoprazole 40 mg tablet,delayed 40 mg PO DAILY Gastrointestinal 03/08/25
release Issue
rifaximin 550 mg tablet 275 mg PO DAILY 03/08/25
Review of Systems
-
All other systems: A 12 pt ROS was Negative except as stated above in HPI
Vital Signs
Temp Pulse Resp BP Pulse Ox
98.0 F 71 16 143/71 96
03/09/25 07:00 03/09/25 07:00 03/09/25 07:00 03/09/25 07:00 03/09/25 07:00
Physical Exam
Exam
General: No Apparent Distress
HEENT: Anicteric
Respiratory: Clear (anterior)
Cardiac: Regular Rhythm
GI: Soft, Non Tender, Non Distended and Normal Bowel Sounds
Skin: Warm and Dry
Neuro: AO x 3
Psych: Calm
Results
WBC 9.0 10^3/uL (4.8-10.8) 03/09/25 07:07
Hgb 12.1 g/dL (13.0-18.0) L 03/09/25 07:07
Hct 38.3 % (39.0-52.0) L 03/09/25 07:07
MCV 86.1 fL (80.0-94.0) 03/09/25 07:07
Plt Count 242 10^3/uL (130-400) 03/09/25 07:07
Absolute Neuts (auto) 6.7 10^3/uL (1.4-6.5) H 03/09/25 07:07
Sodium 143 mmol/L (135-145) 03/09/25 07:07
Potassium 4.3 mmol/L (3.5-5.1) 03/09/25 07:07
Chloride 114 mmol/L (98-107) H 03/09/25 07:07
Carbon Dioxide 23 mmol/L (22-30) 03/09/25 07:07
BUN 18 mg/dl (9-20) 03/09/25 07:07
Creatinine 1.1 mg/dL (0.7-1.3) 03/09/25 07:07
Calcium 8.5 mg/dl (8.4-10.2) 03/09/25 07:07
Total Bilirubin 1.0 mg/dl (0.2-1.3) 03/09/25 07:07
AST 18 U/L (17-59) 03/09/25 07:07
ALT 17 U/L (0-50) 03/09/25 07:07
Alkaline Phosphatase 89 U/L (38-126) 03/09/25 07:07
Lipase 71 U/L (23-300) 03/08/25 10:03
Diagnostic Image Results:
CT Abd/Pelvis with IV contrast:
IMPRESSION:
1. Probable gastritis change and gastroesophageal reflux. Neoplasm such as lymphoma is less likely although not definitely excluded.
2. Probable enteritis/ileus.
3. Questionable cystitis.
Prior GI Procedures:
06/15/2023, Dr. Esparza:
-One 10 mm polyp at the hepatic flexure, removed with
a hot snare. Resected and retrieved.
- One diminutive polyp in the descending colon,
removed with a jumbo cold forceps. Resected and
retrieved.
- Diverticulosis in the sigmoid colon.
-Path: tubular adenomas
-Repeat in 3 years for surveillance.
07/29/24 EGD ([facility]) - Normal proximal esophagus.
- Small amount of retained fluid in the mid esophagus,
suctioned and cleared.
- [place]-colored mucosa suspicious for short-segment
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 Biopsied. (negative Barretts)
- Otherwise, normal esophagus without any evidence of
esophagitis, margo-resendez tears or ulcerations
- Multiple, benign appearing gastric polyps.
Endoscopically, consistent with benign fundic gland
polyps and left intact as all were less than 1 cm
- A small amount of food (residue) in the gastric
antrum
- Otherwise, normal stomach on direct and retroflexion
views
- Small amount of retained food/residue in the
examined duodenum up to the third portion
- The examination was otherwise normal.
EGD:� Multiple EGDs in the past, by Dr. Corrigan, reports negative
Assessment / Plan
-
75 year-old male well-known to our practice (Dr. Esparza) with history of scleroderma, ASCD, SIBO, T12 fracture managed (Steroids, back brace) diverticulitis, coffee-ground emesis in the past with negative EGD, chronic intestinal pseudoobstruction,
followed by Dr. Jacome at [facility] for SIBO/CIPO maintained on regimen of Xifaxan, Motegrity, magnesium, pantoprazole, Mestinon and Reglan presents to the emergency with 10-day history of diarrhea twice a day, 1 day history of nausea and vomiting
after initiation of amoxicillin for dental work. Asked to evaluate for the same. The patient did stop his medications approximately 2 days ago because of continuation of symptoms. Had 1 bowel movement in the emergency room negative for C.
difficile. His last bowel movement was in the ER yesterday. He has been n.p.o. except for p.o. meds ever since however would not take his medications this morning without some sort of food. He is willing to take these with some applesauce. Stool
is negative for C. difficile. Stool cultures pending. On arrival WBC 11.1 now down to 9.0, hemoglobin 12.1, hematocrit 38.3, platelets 242, sodium 143, potassium 4.3, BUN 18, creatinine 1.1, glucose 112, total bilirubin 1.0, AST 18, ALT 17, alk
phos 89, albumin 4.1. CT of the abdomen and pelvis with IV contrast only shows mild fluid distention of the distal thoracic esophagus suggesting component of GERD. Redemonstration of diffuse gastric wall thickening similar to prior. Neoplasm such
as lymphoma is less likely although not definitely excluded. Probable enteritis/ileus. Questionable cystitis. The patient did have an EGD 07/29/2024 that showed normal proximal esophagus. Small amount of retained fluid in the midesophagus
suctioned cleared. [place]-colored mucosa suspicious for short segment Pickard's. Otherwise normal esophagus without any evidence of esophagitis, Margo-Resendez tear or ulcers. Multiple benign-appearing gastric polyps. Small amount of food residue
in the gastric antrum otherwise normal stomach. Small amount of food residue in examined duodenum. Was able to gain weight from last hospitalization, from 59kg to 70 kg.
Impression:
Diarrhea
N/V x 1
Chronic pseudoobstuction with dysmotility
Hx of scleroderma/SIBO
Plan:
-Patient without any N/V or BM since yesterday, will start clears. Ok to give pills with applesauce.
-Await stool culture
-Continue Reglan, Xifaxan, Pantoprazole
-Patient had EGD 06/2024.
-Further recommendations to be forthcoming.
-
-
Thank you for consultation and allowing me to participate in the patient's care. Please call the [facility] consultant GI physician during the after hours with any questions or concerns.
[2025-03-09 11:00] LABS: Glycohemoglobin (HgbA1c) 5.3 % (4.0-5.6)
[2025-03-09 12:31] LABS: Glucose - Point of Care 118 mg/dl (70-99)
--- NOTE | 2025-03-09 13:25 | CM ---
CM reviewed chart, patient seen bedside, reports no needs/concerns to CM at this time. Patient denies needs upon discharge. Will continue to follow for all discharge planning needs.
Plan; home no needs anticipated
[2025-03-09 15:47] VITALS: BP 131/64
[2025-03-09 16:50] LABS: Glucose - Point of Care 150 mg/dl (70-99)
[2025-03-09] MEDS: LOVENOX SC (18:05)
[2025-03-09] MEDS: NOVOLOG FLEXPEN-LOW RESISTANCE 1 UNITS SC (18:07)
[2025-03-09] MEDS: NORVASC 5 MG PO (18:08)
--- NOTE | 2025-03-09 23:07 | W.DCSUMMARY ---
Addendum entered and electronically signed by Erasmo Velasco MD 03/11/25 23:37:
Read, reviewed, and agree. See same day progress note for additional details.
Osman Velasco MD
Original Note:
Documented by User: Alecia Siu MD, Resident 03/11/25 16:57
Discharge Summary
Discharge Data
Date of Admission: 03/08/25
Date of Discharge: 03/09/25
-
Pending Results: Yes (Salmonella/Shigella Culture, Campylobacter Culture, Shiga toxin)
Hospital Course
Discharging Physician : Alecia Siu MD, Rod Zimmerman MD
Disposition : Home
Primary care physician : Tamara Bell
Principal Discharge diagnosis : Acute diarrhea/enteritis/ileus possible exacerbation by antibiotics
History of chronic intestinal pseudoobstruction with dysmotility/gastroparesis resolved likely from abx
Acute kidney injury
Chronic Discharge diagnosis : SIBO / CIPO
ASCVD
GERD
Hypertension
DM-II
Scleroderma
Esophageal Dysmotility
Pulmonary Fibrosis
Vitamin D deficiency
Hospital Course : The patient is a 75year old male with a history of malabsorption and gastroparesis who presented to [facility] ED on 03/08/2025 for a 10 day history of uninterrupted diarrhea that worsened following antibiotics (Amoxicillin for tooth
extraction) for 5 days prior to presentation. He also had a single episode of vomiting and, severe, centralized epigastric abdominal pain which had resolved prior to presentation.
Physical examination at the ED revealed dry oral mucosa and skin and mild abdullahi-umbilical tenderness
Investigations done revealed leukocytosis of 11.1, low magnesium levels at 1.6, and elevated renal function.
CT-Abd/P showed gastritis , Probable enteritis/ileus and Questionable cystitis.
He was subsequently admitted for further management.
Gastroenterology was consulted
Following clinical improvement patient was subsequently discharged the next day.
He was instructed to follow up with out patient PCP and [employer] in 1 week
Important imaging findings :
CT Abd/P 03/08/2025-
1. Probable gastritis change and gastroesophageal reflux. Neoplasm such as lymphoma is less likely although not definitely excluded.
2. Probable enteritis/ileus.
3. Questionable cystitis.
Discharge Plan
-
Patient Disposition: Home (Routine Discharge)
Discharge Diagnosis/Procedures: Acute diarrhea/enteritis/ileus possible exacerbation by antibiotics
History of chronic intestinal pseudoobstruction with dysmotility/gastroparesis likely from abx
Acute kidney injury
Condition: Good
Diet: Diabetic, Carb Controlled
Activity: As tolerated
Driving Restrictions: As prior to admission
Bathing Restrictions: None
Referrals:
Dimitri Esparza MD [Active, Gastroenterology] - in one week
Tamara Bell MD [Family Provider, Family Practice] - in less than 1 week
Additional Discharge Medication Instructions: Please continue all your home medication except Glimepiride which you can resume after having discussion with the family doctor
Please follow up with out patient PCP and [employer] in 1 week
Prescriptions:
Continued
aspirin 81 MG tablet,delayed release (DR/EC)
81 mg PO HS
atorvastatin 80 MG tablet
80 mg PO DAILY
pyridostigmine bromide 60 mg tablet
30 mg PO BID
Rx Instructions:
Pt takes medication before breakfast and dinner
prucalopride [Motegrity] 2 mg tablet
2 mg PO HS
metoclopramide HCl 5 mg tablet
5 mg PO DAILY
amlodipine 5 mg tablet
5 mg PO DAILY
pantoprazole 40 mg tablet,delayed release (DR/EC)
40 mg PO DAILY
magnesium glycinate 100 mg Tablet
100 mg PO DAILY
cholecalciferol (vitamin D3) 125 mcg (5,000 unit) Tablet,Disintegrating
125 mcg PO DAILY
ibuprofen-acetaminophen 125-250 mg Tablet
2 tab PO Q8H PRN (Reason: mild pain)
rifaximin 550 mg Tablet
275 mg PO DAILY
Held
glimepiride 2 mg Tablet
2 mg PO DAILY
Hold Instructions: Resume on 03/16/25. Resume after follow up with PCP
Discontinued
amoxicillin 500 mg capsule
500 mg PO TID
Discharge Orders:
Discharge Patient (As Directed); Ordered 03/09/25
Ordered By: Alecia Siu
Discharge Date and Time
Discharge Date/Time: 03/09/25 19:10
Print Language: [place]

Documented by User: Erasmo Velasco MD 03/11/25 23:37
Discharge Summary
Discharge Data
Date of Admission: 03/08/25
Date of Discharge: 03/11/25
Discharge Plan
-
Patient Disposition: Home (Routine Discharge)
Discharge Diagnosis/Procedures: Acute diarrhea/enteritis/ileus possible exacerbation by antibiotics
History of chronic intestinal pseudoobstruction with dysmotility/gastroparesis likely from abx
Acute kidney injury
Condition: Good
Diet: Diabetic, Carb Controlled
Activity: As tolerated
Driving Restrictions: As prior to admission
Bathing Restrictions: None
Referrals:
Dimitri Esparza MD [Active, Gastroenterology] - in one week
Tamara Bell MD [Family Provider, Family Practice] - in less than 1 week
Additional Discharge Medication Instructions: Please continue all your home medication except Glimepiride which you can resume after having discussion with the family doctor
Please follow up with out patient PCP and [employer] in 1 week
Prescriptions:
Continued
aspirin 81 MG tablet,delayed release (DR/EC)
81 mg PO HS
atorvastatin 80 MG tablet
80 mg PO DAILY
pyridostigmine bromide 60 mg tablet
30 mg PO BID
Rx Instructions:
Pt takes medication before breakfast and dinner
prucalopride [Motegrity] 2 mg tablet
2 mg PO HS
metoclopramide HCl 5 mg tablet
5 mg PO DAILY
amlodipine 5 mg tablet
5 mg PO DAILY
pantoprazole 40 mg tablet,delayed release (DR/EC)
40 mg PO DAILY
magnesium glycinate 100 mg Tablet
100 mg PO DAILY
cholecalciferol (vitamin D3) 125 mcg (5,000 unit) Tablet,Disintegrating
125 mcg PO DAILY
ibuprofen-acetaminophen 125-250 mg Tablet
2 tab PO Q8H PRN (Reason: mild pain)
rifaximin 550 mg Tablet
275 mg PO DAILY
Held
glimepiride 2 mg Tablet
2 mg PO DAILY
Hold Instructions: Resume on 03/16/25. Resume after follow up with PCP
Discontinued
amoxicillin 500 mg capsule
500 mg PO TID
Discharge Orders:
Discharge Patient (As Directed); Ordered 03/09/25
Ordered By: Alecia Siu
Discharge Date and Time
Discharge Date/Time: 03/09/25 19:10
Print Language: [place]
== END 2025-03-09 19:10 | disposition home or self-care (01) | DRG 393 ==
LOC: 2 NORTH 13:37
PROVIDERS: Clinical Nurse Specialist Family Health; Physician Assistant; ADMITTING PHYSICIAN Hospitalist; ATTENDING PHYSICIAN Family Medicine; CONSULT PHYSICIAN Internal Medicine Gastroenterology; EMERGENCY PHYSICIAN Emergency Medicine; FAMILY PHYSICIAN Family Medicine
DX: K52.1 Toxic gastroenteritis and colitis (principal); E43 Unspecified severe protein-calorie malnutrition; N17.9 Acute kidney failure, unspecified; K56.7 Ileus, unspecified; T36.8X5A Adverse effect of other systemic antibiotics, initial encounter; E11.43 Type 2 diabetes mellitus with diabetic autonomic (poly)neuropathy; E78.00 Pure hypercholesterolemia, unspecified; I10 Essential (primary) hypertension; I25.10 Atherosclerotic heart disease of native coronary artery without angina pectoris; K21.9 Gastro-esophageal reflux disease without esophagitis; K31.84 Gastroparesis; E86.0 Dehydration; E55.9 Vitamin D deficiency, unspecified; M34.9 Systemic sclerosis, unspecified; J84.10 Pulmonary fibrosis, unspecified; Z68.23 Body mass index [BMI] 23.0-23.9, adult; K22.4 Dyskinesia of esophagus; D64.9 Anemia, unspecified; F03.90 Unspecified dementia, unspecified severity, without behavioral disturbance, psychotic disturbance, mood disturbance, and anxiety; K29.70 Gastritis, unspecified, without bleeding; Z79.82 Long term (current) use of aspirin; Z79.52 Long term (current) use of systemic steroids; Z79.84 Long term (current) use of oral hypoglycemic drugs; Z79.899 Other long term (current) drug therapy; Z90.49 Acquired absence of other specified parts of digestive tract; Z95.5 Presence of coronary angioplasty implant and graft
CPT/HCPCS: 74177; 80053; 82962; 83036; 83690; 83735; 85025; 87045; 87046; 87324; 87427; 87449; 93005; 96365; 96375; 99285; Q9967

== ENCOUNTER → 2025-03-11 14:09 | Outpatient (REF) | payer MEDICARE, OTHER, SELFPAY | LOC: RAD 14:09 | PROVIDERS: ATTENDING PHYSICIAN Internal Medicine Rheumatology; FAMILY PHYSICIAN Family Medicine | DX: M81.0 Age-related osteoporosis without current pathological fracture (principal) | CPT/HCPCS: 77080 ==

== ENCOUNTER 2025-03-31 07:47 | Inpatient (IN) | payer MEDICARE, OTHER, SELFPAY ==
[2025-03-30] VITALS (10 sets, daily range): BP systolic 138–173; BP diastolic 66–94; BMI 21.9; BMI 21.8
--- NOTE | 2025-03-30 15:12 | ED.GENMED ---
History of Present Illness
General
Chief Complaint: Abdominal Symptoms
Time Seen by Provider: 03/30/25 14:46
History of Present Illness
History of Present Illness:
SEE mdm
Past History
Past History
ED Past Medical History: CAD, GERD, HTN, Hypercholesterolemia, NIDDM, NH and Other (scleroderma, SBO,, PNA, Pulmonary fibrosis, Gastroporesis)
ED Past Surgical History: Cardiac (Stents X 6) and Cholecystectomy
Social History
Tobacco: Non-smoker
Alcohol: None
Drug: None
Personal:
Living: with family
Employment: Retired
Family History
Family History: CAD
Phy Exam
Physical Exam
Physical Exam:
GENERAL: Alert , in no apparent distress
EYE: pupils equal and reactive
NECK: Supple
ENT: o/p clr, very dry.
CARDIAC: Regular rate and rhythm .
LUNGS: Clear breath sounds bilaterally, no acute respiratory distress, no wheezes/rales/rhonchi
ABDOMEN: Soft, no significant distension without focal tenderness, no r/g, no cvat, normal bowel sounds
NEUROLOGICAL: Alert and oriented, no focal neuro deficits
SKIN: Warm and dry, skin intact.
MUSCULOSKELETAL: FINGER CONTRACTURES
PSYCH: Normal and appropriate interaction.
Course
Orders/Labs/Results
Orders:
Orders
03/30/25 Dinner
NPO
Allow oral meds: Yes
Allow clear liquids: Sips of Clears
03/30/25 15:12
0.9% Sodium Chloride 1000 ml [Nss] 1,000 ml IV BOLUS
Ondansetron Injectable [Zofran] 4 mg IV NOW STA
03/30/25 15:13
Electrocardiogram (*1) Urgent
Reason for Study: Vertigo / Dizzy
EKG- Treatment ONCE
03/30/25 15:32
Complete Blood Count/With Diff Urgent
Comprehensive Metabolic Panel Urgent
Lipase Urgent
Magnesium Urgent
03/30/25 15:51
HYDROmorphone [Dilaudid] 1 mg IV NOW STA
03/30/25 16:34
0.9% Sodium Chloride 1000 ml [Nss] 1,000 ml IV BOLUS
Ondansetron Injectable [Zofran] 4 mg IV NOW STA
Obstruct Series W/PA Chest [CR Obstruct Series W/pa Chest] Urgent
Comment:
Reason For Exam: CHRONIC OBSTRUCTIONS, VOMITING
03/30/25 16:45
Magnesium Sulfate 1 G/D5w [Magnesium Sulfate] 1 gm in 100 ml IV NOW
03/30/25 18:47
Metoclopramide [Reglan] 10 mg IV NOW STA
03/30/25 19:23
Admit/Transfer Patient As Directed
Co-Sign Provider:
Level of Care: Observation services
Assign to:: Medical/Surgical
Physician / Group: dalila
Diagnosis: intractable nausea
PRN Pain Medication Management As Directed
May give lesser potent ordered pain med per pt: Yes
preference::
Protocol:: Medication orders for pain may be administered in a
manner that supports deferring to patient preference
when the pt is:
- Requesting an ordered lesser potent pain medication.
Least to most potent pain medications are defined
as: acetaminophen < NSAID < tramadol < opioids
(morphine, oxycodone, hydromorphone).
- Requesting a lesser dose of the same medication IF
ORDERED.
- Requesting a less intrusive route of administration
if both routes are prescribed by the provider (PO <
IV).
03/30/25 19:24
Code Status As Directed
Resuscitation Status: Full Code
03/30/25 19:28
Calcium Gluconate 1 gram/100mL [Calcium Gluconate] 1 gram in 100 ml IV ONCE
03/30/25 20:43
0.9% Sodium Chloride 1000 ml [Nss] 1,000 ml IV 125 mls/hr
Acetaminophen [Tylenol] 650 mg PO Q4HPRN PRN
Amlodipine [Norvasc] 2.5 mg PO BID
Insulin Aspart Corrective Low [Novolog Flexpen-Low Resistance] See Protocol SC Q6H
Metoclopramide [Reglan] 5 mg IV Q8H
Ondansetron Injectable [Zofran] 4 mg IV Q6HPRN PRN
Pyridostigmine [Mestinon] 30 mg PO BID
Tramadol HCl [Ultram] 50 mg PO Q6HPRN PRN
03/30/25 20:43
Activity As Directed
Activity Level: With Assistance
Bedside Glucose Monitoring As Directed
Frequency: Q6H
Vital Signs As Directed
Frequency: Per unit guidelines
DX Deep Vein Thrombosis Video Routine
03/30/25 22:00
Aspirin Low Dose EC [Aspir Low (Enteric Coated)] 81 mg PO HS
03/30/25 23:37
BMP [Basic Metabolic Panel] Routine
Magnesium Routine
03/31/25 06:00
Basic Metabolic Panel IN AM
Complete Blood Count/No Diff IN AM
03/31/25 08:00
Atorvastatin [Lipitor] 80 mg PO DAILY
Pantoprazole [Protonix IV] 40 mg IV DAILY
Prednisone [Deltasone] 5 mg PO DAILY
Rifaximin [Xifaxan] 275 mg PO DAILY
03/31/25 18:00
Enoxaparin Sodium [Lovenox] 40 mg SC QPM
Abnormal Lab Results
03/30/25
15:32
WBC 14.0 H 10^3/uL
(4.8-10.8)
MCHC 32.9 L g/dL
(33.0-37.0)
RDW 22.3 H %
(11.5-14.5)
Abs Immat Gran (auto) 0.1 H 10^3/uL
(0-0.05)
Absolute Neuts (auto) 10.7 H 10^3/uL
(1.4-6.5)
Absolute Monos (auto) 1.5 H 10^3/uL
(0.1-0.6)
Neutrophils % 76.1 H %
(42.2-75.2)
Lymphocytes % 11.5 L %
(20.5-51.1)
Monocytes % 10.4 H %
(1.7-9.3)
Chloride 111 H mmol/L
(98-107)
BUN 25 H mg/dl
(9-20)
Creatinine 1.4 H mg/dL
(0.7-1.3)
Glucose 119 H mg/dl
(70-99)
Calcium 7.8 L mg/dl
(8.4-10.2)
Magnesium 1.1 L mg/dl
(1.6-2.3)
03/30/25 15:32
03/30/25 15:32
Vital Signs
Initial and Last Documented VS:
Initial Vital Signs
Temp Pulse Resp BP Pulse Ox
36.5 C 119 18 152/94 98
03/30/25 14:04 03/30/25 14:04 03/30/25 14:04 03/30/25 14:04 03/30/25 14:04
Last Documented Vital Signs
Temp Pulse Resp BP Pulse Ox
36.6 C 77 20 156/66 100
03/30/25 23:00 03/30/25 23:00 03/30/25 23:00 03/30/25 23:00 03/30/25 23:00
MDM/Problems Addressed
Differential Diagnosis Includes:
see MDM
MDM/Problems Addressed:
Note:
CHIEF COMPLAINT(S)
Diarrhea, nausea, vomiting, and abdominal pain for four weeks.
HISTORY OF PRESENT ILLNESS
The patient is a 75-year-old male with h/o severe scleroderma, pseudobstruction/chronic nausea/vomiting/diarrhea, presenting with a four-week history of symptoms consistent with gastrointestinal distress, including diarrhea, nausea, vomiting, and
abdominal pain. The diarrhea has been described as watery and explosive, providing some relief after episodes. The patient notes that the current sickness began abruptly overnight, and they have developed headaches and elevated blood pressure,
symptoms theyve not experienced in the past four weeks. The vomiting has occurred twice in the last 24 hours, with episodes lasting five to ten minutes. The patient reports being unable to maintain oral intake, having not consumed liquids in
approximately 18 hours, contributing to dizziness and headaches.
The patient has a known history of scleroderma and chronic gastrointestinal dysmotility, and they were seen by a Gastrointestinal specialist who suggested these symptoms might be related to the chronic condition. However, they have not experienced
fever during these episodes. There is abdominal pain, noted as mostly a vague discomfort located in the abdomen, which is relieved post-defecation.
The patient is currently taking Reglan (metoclopramide) but in limited doses due to concerns of side effects like its impact on thyroid function. They have expressed willingness to receive Ondansetron (Zofran) intravenously for symptomatic relief.
The patient has previously experienced intestinal obstruction necessitating nasogastric decompression.
PHYSICAL EXAM
- Abdominal examination reveals soft and non-distended abdomen.
- Nursing notes reviewed and vital signs reviewed.
PLAN
- Administer Intravenous Ondansetron (Zofran) for nausea and vomiting.
- Perform an abdominal X-ray to assess for potential bowel obstruction or air-fluid levels, focusing on the clinical benefit to patients gastrointestinal symptoms.
DIFFERENTIAL DIAGNOSIS
The Differential Diagnosis includes, in no particular order and is not limited to:
1. Gastroenteritis
2. Small bowel obstruction
3. Chronic dysmotility due to scleroderma
4. Medication side effect (metoclopramide)
5. Electrolyte imbalance secondary to diarrhea and vomiting
6. Infectious colitis
7. Irritable bowel syndrome
8. Inflammatory bowel disease
9. Peptic ulcer disease
10. Functional gastrointestinal disorders
CHRONIC MEDICAL CONDITIONS SIGNIFICANTLY AFFECTING CARE
Scleroderma with associated chronic gastrointestinal dysmotility.
REVIEW OF SYSTEMS
- Gastrointestinal: Persistent watery diarrhea, nausea, vomiting, and abdominal pain.
- Neurological: Dizziness, headaches.
- Cardiovascular: Elevated blood pressure reported.
SOCIAL DETERMINANTS AFFECTING HEALTH
The conversation does not provide any applicable information directly relating to social determinants.
pt is 75 with h/o scleroderma and dysmotility causing ileus/chronic nausea/vomiting/diarrhea
here with ongoing symptoms since last admission 3 weeks ago but worse the past 2 days, cannot keep anything down and hasn't been drinking in 18 hours, multiple watery stools
no distension of abdomen like previous SBO
he usually has ileus
on exam soft abdomen
dry MM
no relief wtih zofran x 2, then reglan; still dry heaving
appreciate xray indep reviewed by me, air fluid levels present
probably developing SBO
d/w ed attending
will reserve ct at this time as pt has history of many cts before
admit
*Pulse Oximetry
SaO2: 98
Oxygen Mode of Delivery: Room air
Patient hypoxic: no (98)
*Critical Care Note
Total Time (30-74mins, 75-104mins- exclusive of procedures): Not Applicable
ED Attending Note
-
Portions of this chart may have been created with voice recognition software.� Occasional wrong word or��sound alike� substitutions may have occurred due to the inherent limitations of voice recognition software.
Discharge Plan
Departure
Patient Disposition: Admit
Date of Disposition: 03/30/25
Time of Disposition: 18:42
Admit to: Med/Surg
Presentation/result/management discussed w/ accepting MD/DO: Hospitalist
Condition: Fair
Covid-19: Not Applicable
Discharge Problem:
Ileus
Interventions
Interventions:
*Risk Screen - Suicide Last Done: 03/30/25 14:04
*General Assessment Last Done: 03/30/25 15:38
*Neglect/Abuse Screening Last Done: 03/30/25 14:04
*ED- Fall Risk Assessment Last Done: 03/30/25 15:38
*ED COVID-19 Vaccine History Last Done: 03/30/25 15:38
*Nursing Disposition Last Done: 03/30/25 20:43
CE-Kygyuk-Pyofqfzgof Assessment Last Done: 03/30/25 15:38
Discharge Date and Time
Discharge Date/Time: 03/30/25 20:43
[2025-03-30] MEDS: ZOFRAN 4 MG IV ×2 (15:33→16:50)
[2025-03-30] MEDS: NSS 1000 IV ×3 (15:33→21:27)
[2025-03-30 15:45] LABS: Hematocrit 41.7 % (39.0-52.0); Hemoglobin 13.7 g/dL (13.0-18.0); Mean Corp Hgb Conc. 32.9 g/dL (33.0-37.0); Mean Corpuscular Volume 87.6 fL (80.0-94.0); Platelet Count 261 10^3/uL (130-400); Red Cell Dist. Width 22.3 % (11.5-14.5)
[2025-03-30] MEDS: DILAUDID 1 MG IV (15:54)
[2025-03-30 16:22] LABS: ALT (SGPT) 20 U/L (0-50); AST (SGOT) 24 U/L (17-59); Albumin 4.6 g/dl (3.5-5.0); Alkaline Phosphatase 73 U/L (38-126); Blood Urea Nitrogen 25 mg/dl (9-20); Calcium 7.8 mg/dl (8.4-10.2); Carbon Dioxide 23 mmol/L (22-30); Chloride 111 mmol/L (98-107); Estimated Creatinine Clearance 47 ml/min; Glucose 119 mg/dl (70-99); Lipase 81 U/L (23-300); Magnesium 1.1 mg/dl (1.6-2.3); Potassium 4.1 mmol/L (3.5-5.1); Sodium 143 mmol/L (135-145); Total Protein 7.0 g/dl (6.3-8.2); eGFR 52.74
[2025-03-30 16:39] LABS: Anisocytosis 2+; Macrocytosis 2+; Normal RBC Morphology No; Nucleated Red Blood Cells % 0 % (-); Ovalocytes 1+; Tear Drop Red Blood Cells Occasional
[2025-03-30] MEDS: MAGNESIUM SULFATE 100 IV (16:51)
[2025-03-30] MEDS: REGLAN 10 MG IV (18:50)
--- NOTE | 2025-03-30 19:14 | HPS.HSE ---
Family Physician
-
Family Physician: Tamara Bell
Chief Complaint
-
Intractable Nausea
History of Present Illness
This is a 75-year-old with past medical history significant for CAD status post tenting scleroderma, gastroparesis and malabsorption who presents to the emergency department with intractable nausea and dry heaves.
The patient was last admitted in early February for similar symptoms and states that his symptoms and reports that he was generally feeling better of 1 to last night. He said he had some abdominal grumbling the previous evening. When he went to bed
he started having watery diarrhea. He denies any blood. He denies any melena. Continues to have watery diarrhea up until this morning. Daily started having dry heaves and then vomiting. This cycle appears to be typical for him. He reports that
he is passing gas. Reports some mild diffuse abdominal discomfort. Denies any fevers or chills. Denies any shortness of breath.
Denies any known sick contact. During his last admission stool studies were negative for an acute infectious process.
In the emergency department he was afebrile, blood pressure was 167/87 with a pulse of 80 satting 100% on room air. ECG shows a normal sinus rhythm at a rate of 80 and unchanged from prior.
He has a white count of 14, CBC otherwise unremarkable. Electrolytes notable for a magnesium of 1.1 and calcium of 7.8 otherwise BUN/creatinine were fairly stable at 25 and 1.4 with a glucose of 119.
X-ray shows new mild small bowel dilation with air-fluid levels concerning for developing small bowel obstruction versus ileus. There is air in the rectum suggesting that the obstruction is early or partial.
Medical History
Past Medical History
Past Medical History: Reports Other
Additional Past Medical History:
SIBO / CIPO
ASCVD
GERD
Hypertension
DM-II
Scleroderma
Esophageal Dysmotility
Pulmonary Fibrosis
Vitamin D deficiency
Past Surgical History: Reports Other
Additional Past Surgical History:
Cardiac stent x6
Cholecystectomy
Social History
Unable to obtain full social history at this time due to: Dementia
Tobacco: Non-smoker
Alcohol: None
Drug: None
Personal:
Employment: Retired
Family History
Family History: Not pertinent
Allergies / Home Medications
Allergies reflects when Allergies were last updated in [employer].
Home Medications with original date entered in [employer]
Allergy/Medication List:
Allergies
Allergy/AdvReac Type Severity Reaction Status Date / Time
No Known Allergies Allergy Verified 03/08/25 09:19
Home Medications
aspirin 81 mg tablet,delayed release 81 mg PO HS Blood clot prevention/tx 06/28/20
atorvastatin 80 mg tablet 80 mg PO DAILY High cholesterol 06/28/20
pyridostigmine bromide 60 mg tablet 60 mg PO BID Neurological Condition 03/19/23
prucalopride 2 mg tablet (Motegrity) 2 mg PO HS Constipation 08/18/24
rifaximin 550 mg tablet (Xifaxan) 550 mg PO TID #0 tabs 09/21/24
prednisone 1 mg tablet 5 mg PO DAILY 10/14/24
glimepiride 2 mg tablet 2 mg PO DAILY 03/08/25
losartan 50 mg tablet 50 mg PO DAILY 03/08/25
metoclopramide HCl 5 mg tablet 10 mg PO DAILY 03/08/25
nifedipine 30 mg PO DAILY 03/08/25
Review of Systems
-
History Source: Patient
A 12 point ROS was completed and negative except as noted: Yes
Constitutional: Denies Fever or Chills
EENT: Denies Sore Throat or Runny Nose
Respiratory: Denies Cough or Trouble Breathing
Cardiac: Denies Chest Pain, Diaphoresis, Palpitations or Syncope
Abdomen/GI: Reports Abdominal Pain (Umbilical) and Nausea (Chronic); Denies Constipated, Bloody Stools or Black Stools
: Denies Dysuria, Frequency, Flank Pain, Incontinence, Difficulty Voiding or Urgency
Musculoskeletal: Denies Joint Pain or Edema
Skin: Denies Itching or Rash
Neurological: Denies Dizzy, Headache or Weakness
Endocrine: Reports No Symptoms
Hematologic/Lymphatic: Reports No Symptoms
Psych: Reports Calm
Physical Exam
Vital Signs
Vital Signs
Temp Pulse Resp BP Pulse Ox
97.7 F 80 18 167/85 100
03/30/25 14:04 03/30/25 18:47 03/30/25 14:04 03/30/25 18:44 03/30/25 18:45
Physical Exam
General: Conversant; No Fever, Chills or Sweats
HEENT: NormoCephalic, Anicteric, PERRLA, [place] Conjunctivae, No Ptosis and Other (Dry oral mucosa)
Respiratory: Clear; No Wheezes, Rales or Rhonchi
Cardiac: S1/S2 and Regular Rhythm; No Murmur, Rub, Gallop or Peripheral Edema
Breast: Deferred by me
GI: Soft, Non Distended, Normal Bowel Sounds (slightly reduced bs), Tender (Mild around umbilicus) and No Hepatosplenomegaly
Rectal: Deferred by Provider
Genito-urinary: Deferred by me
Musculoskeletal: No Clubbing, No Cyanosis and No Edema
Skin: Warm and Dry; No Rash
Neuro: AO x 3, No Motor Deficits, Nonfocal/grossly intact, Cranial Nerves Intact and No Sensory Deficits; No Slurred Speech, Facial Droop, Tremors or Sedated
Psych: Calm
Laboratory Results
-
03/30/25 15:32
03/30/25 15:32
Laboratory Results
Total Bilirubin 0.8 mg/dl (0.2-1.3) 03/30/25 15:32
AST 24 U/L (17-59) 03/30/25 15:32
ALT 20 U/L (0-50) 09/01/25 15:32
Alkaline Phosphatase 73 U/L (38-126) 03/30/25 15:32
Lipase 81 U/L (23-300) 03/30/25 15:32
Data Reviewed
-
Diagnostic Radiology: Report Reviewed by me
Medical Tests (Nuc Med, Echo, EKG etc): Image Personally Visualized and interpreted
Lab Data: Labs Reviewed by me
Old Records: Reviewed
Impression/Plan
-
IMPRESSION:
75-year-old with past medical history of CAD, scleroderma, gastrointestinal issues with possible gastroparesis, recurrent admissions for ileus and enteritis associated with dehydration and electrolyte abnormalities now presenting with recurrence of
his symptoms and associated hypomagnesemia and mild FLORENCE. X-ray shows possible LE or partial SBO versus ileus. There is gas in the rectum suggesting incomplete obstruction. Patient is passing gas. Continues to have dry heaves despite medications
in the ED.
PLAN:
Nausea vomiting -patient started with diarrhea then nausea and vomiting and now nausea with dry heaves. He has mild dehydration with mild FLORENCE. Partial SBO versus ileus of uncertain etiology but likely secondary to gastric dysmotility o
- admit to med/surg
- NPO for now, ADAT
- IV metoclopromide q 8 hours standing
- prn zofran
- IV hydration with NS, magnesium and calcium supplementation
- minimize narcortic use
- serial examination, hold off on NG tube at this time
- GI consultation
DM II
- hold glimepiride
- sliding scale insulin q 6
Leukocytosis to 14 - No fevers, chills, cough, sob or urianry symptoms. No ongoing diarrhea
- if recurrent diarrhea, obtain stool studies
- monitor for now
DVT PPX - lovenox sq
Code status - full code
[2025-03-30] MEDS: CALCIUM GLUCONATE 100 IV (19:38)
[2025-03-30] MEDS: ASPIR LOW (ENTERIC COATED) 81 MG PO (21:26)
[2025-03-30] MEDS: NORVASC 2.5 MG PO (21:26)
[2025-03-30] MEDS: REGLAN 5 MG IV (21:27)
[2025-03-30] MEDS: MESTINON 30 MG PO (21:27)
[2025-03-30 23:27] LABS: Glucose - Point of Care 99 mg/dl (70-99)
[2025-03-31] LABS: Blood Urea Nitrogen 19 mg/dl (9-20); Calcium 7.6 mg/dl (8.4-10.2); Carbon Dioxide 24 mmol/L (22-30); Chloride 113 mmol/L (98-107); Estimated Creatinine Clearance 59 ml/min; Glucose 95 mg/dl (70-99); Magnesium 1.4 mg/dl (1.6-2.3); Potassium 4.1 mmol/L (3.5-5.1); Sodium 145 mmol/L (135-145); eGFR > 60.00
[2025-03-31] MEDS: REGLAN IV (04:20)
[2025-03-31 06:16] LABS: Glucose - Point of Care 111 mg/dl (70-99)
[2025-03-31 07:00] VITALS: BP 147/45
[2025-03-31 08:55] LABS: Hematocrit 39.7 % (39.0-52.0); Hemoglobin 13.0 g/dL (13.0-18.0); Mean Corp Hgb Conc. 32.7 g/dL (33.0-37.0); Mean Corpuscular Volume 86.9 fL (80.0-94.0); Platelet Count 252 10^3/uL (130-400); Red Cell Dist. Width 22.4 % (11.5-14.5)
--- NOTE | 2025-03-31 09:12 | W.PN.HOSP.TC ---
Today's Communication/Plan
-
f/w GI recommendations
Assessment / Plan
Assessment / Plan
Physical Exam
General: Conversant; not in distress.
HEENT: Normocephalic, Anicteric, PERRLA, [place] Conjunctivae, No Ptosis and Other (Dry oral mucosa)
Respiratory: Clear; No Wheezes, Rales or Rhonchi
Cardiac: S1/S2 and Regular Rhythm; No Murmur, Rub, Gallop or Peripheral Edema
Breast: Deferred by me
GI: Soft, Non Distended, non tender.
Rectal: no rectal bleeding
Genito-urinary: no hematuria
Musculoskeletal: No Clubbing, No Cyanosis and No Edema
Skin: Warm and Dry; No Rash
Neuro: AO x 3, No Motor Deficits, Nonfocal/grossly intact. No Slurred Speech, Facial Droop, Tremors or Sedated
Psych: Calm
A/P:
# Acute SBO
known Gastroparesis, gastritis, SIBO, colonic dysmotility can all be caused by scleroderma.
CT reviewed
now, he is feeling better, no nausea, passing gas
Can start clear liquids
On Reglan
Appreciate GI help
# history of moderate to Severe protein/calorie malnutrition -
#Hypomagnesemia, replace
# Hypocalcemia
#Chronic anemia - stable due to chronic inflammation due to scleroderma.
DM2 without hyperglycemia -was on glimepiride prior to admission.
CAD -with prior stents.
#Essential hypertension -stable on amlodipine.
#Hyperlipidemia -atorvastatin.
#Scleroderma
on chronic prednisone
# Pulmonary fibrosis
# Esophageal dysmotility
#T12 compression fracture -suspect due to osteoporosis.
# History of gout
# Full code
Total time spent to see the patient, examine the patient, review data lab result, discuss treatment plan with patient, nursing staff around 55 minutes
Anticipated Discharge: > 48 hours
Subjective/Interval History
-
Date of Service: March 31, 2025
He feels better, less pain, passing gas
No nausea
Objective Data
-
Labs:
Laboratory Results
03/30/25 03/31/25
23:37 08:19
WBC 11.2 H
Hgb 13.0
Hct 39.7
Plt Count 252
Sodium 145 Pending
Potassium 4.1 Pending
Chloride 113 H Pending
Carbon Dioxide 24 Pending
BUN 19 Pending
Creatinine 1.1 Pending
Glucose 95 Pending
Calcium 7.6 L Pending
Vital Signs:
Vital Signs
Temp Pulse Resp BP Pulse Ox
98.1 F 73 16 147/45 98
03/31/25 07:00 03/31/25 07:00 03/31/25 07:00 03/31/25 07:00 03/31/25 07:00
--- NOTE | 2025-03-31 09:34 | CON.GI ---
Addendum entered and electronically signed by Anabell Bowles MD 03/31/25 14:36:
The patient was seen and examined by me independently in collaboration with the nurse practitioner.
Past medical history/social history/medications/allergies/family history reviewed.
Lab data and imaging data reviewed.
Mr. Wing is a 75-year-old gentleman well-known to our practice for multiple hospitalizations with history of scleroderma, chronic intestinal pseudoobstruction and dysmotility, gastroparesis, SIBO, follows with [facility] for his motility issues
maintained on a regimen of Xifaxan, Motegrity, magnesium, Protonix, Mestinon, Reglan, previously tried domperidone and erythromycin presenting with nausea, vomiting, abdominal pain, diarrhea which is similar to his prior episodes. Of note, he has
had 4 flares in the last month. 2 of these required hospitalizations. At this time, he feels improved and will continue to advance his diet and if he tolerates diet he is okay to be discharged later today from GI point of view. He has upcoming
appointment in May with [facility]. Will hold off on changing his long-term medications but perhaps he would benefit from Remeron with his nausea and vomiting being his main issue.
He also was recently found to have anemia reviewing back as far as 2023. His last colonoscopy was 2022 with a [address] Esparza.. He will make an appointment with Dr. Esparza to set up a colonoscopy, can consider repeat endoscopy this was
done most recently June 2024.
Original Note:
Consultation
-
Date/Time Consultation Requested: 03/31/25 07
Date/Time Consultation Performed: 03/31/25929
Requesting Provider: Samantha Umana MD
Performing Provider: MAILE Stephen, Roxanne Bowles MD
Reason for Consultation: nausea, vomiting, abdominal pain
Medical History
Chief Complaint / HPI
Chief Complaint: n/v/constipation/diarrhea
History of Present Illness:
75 year-old male well-known to our practice (Dr. Esparza) and follow with Dr. Elder at [facility] for last 2 years with history of scleroderma,chronic intestinal pseudoobstruction/dysmotility, gastroparesis, SIBO, ABHIJEET, GERD, TA colon polyps,
ASCVD, pulm fibrosis, prior T12 fracture 06/2024 (Steroids, back brace), NIDDM, chronic pancreatitis with calification on CT, prior phong, diverticulitis, and coffee-ground emesis in the past with negative EGD. With chronic GI issue with
Scleroderma and SIBO pt has been following with Dr. Jacome at [facility] maintained on regimen of Xifaxan, Motegrity, magnesium, pantoprazole, Mestinon and Reglan presents to the emergency with recurrent GI issues. Per chart no admissions from
September with well controlled symptoms but then was admitted in Mid February after initiation of amoxicillin for dental work with diarrhea. He now presents with 4 weeks of recurrent episodes of ongoing GI issues with diarrhea, abdominal pain, nausea,
and vomiting. pt was unable to eat of drink for 18 hours with dizziness and headache leading to admission. In review with patient he will eat and get feeling of stomach gurgling and certain taste in mouth. Then several hours later will get GI
symptoms with pain, nausea, vomiting, and diarrhea. Some episodes as short and pt able to manage at home but need for IV fluid and IV meds to control prolonged episode. 03/30 obs series on admission with New mild small bowel dilatation with
air-fluid levels concerning for developing small bowel obstruction. The air in the rectum suggests this is early or partial. Small bowel ileus not excluded. CT completed 03/08 on last admission with mild fluid distention of the distal thoracic
esophagus suggesting component of GERD. Remonstration of diffuse gastric wall thickening similar to prior. Neoplasm such as lymphoma is less likely although not definitely excluded. Probable enteritis/ileus. Questionable cystitis. The patient
did have an EGD 07/29/2024 that showed normal proximal esophagus. Small amount of retained fluid in the midesophagus suctioned cleared. [place]-colored mucosa suspicious for short segment Pickard's but neg pathology. Otherwise normal esophagus
without any evidence of esophagitis, Margo-Resendez tear or ulcers. Multiple benign-appearing gastric polyps. Small amount of food residue in the gastric antrum otherwise normal stomach. Small amount of food residue in examined duodenum. Pt also
admits to hx ABHIJEET. He has been following with hematology for iron infusion. He was recommended repeat Colonoscopy but not completed yet with last colon 05/2023 with TA polyp, diverticulosis.
At this time pt feeling better. He is asking for increased diet. He admits to recent nausea and vomiting that has now improved. He otherwise denies odynophagia, dysphagia, blood or black in stools.
Past Medical History
Past Medical History: CAD, GERD, NIDDM, SD and Other ( Scleroderma with chronic intestinal pseudoobstruction/dysmotility, gastroparesis, SIBO, esophageal dysmotility, TA colon polyps, chronic pancreatitis with calcification on imaging, pulm
fibrosis subacute T12 burst fx 06/2024,, ASCVD)
Past Surgical History: Other (Cardiac stent x6 Cholecystectomy)
Social History
Tobacco: Non-Smoker
Alcohol: None
Drug: None
Living: Alone
Employment: Employed
Family History
Family History: Other (no family hx colon Ca or polyps)
Allergies / Home Medications
Allergy/AdvReac Type Severity Reaction Status Date / Time
No Known Allergies Allergy Verified 03/30/25 14:06
�Medication �Instructions �Recorded
aspirin 81 mg tablet,delayed 81 mg PO HS Blood clot 06/28/20
release prevention/tx
atorvastatin 80 mg tablet 80 mg PO DAILY High cholesterol 06/28/20
pyridostigmine bromide 60 mg tablet 30 mg PO BID Neurological Condition 03/19/23
prucalopride 2 mg tablet 2 mg PO HS Constipation 08/18/24
(Motegrity)
magnesium glycinate 100 mg (as 100 mg PO DAILYPRN PRN low 03/08/25
glycinate) tablet magnesium
metoclopramide HCl 5 mg tablet 5 mg PO BID N/V 03/08/25
pantoprazole 40 mg tablet,delayed 40 mg PO DAILY Gastrointestinal 03/08/25
release Issue
rifaximin 550 mg tablet 275 mg PO DAILY 03/08/25
amlodipine 2.5 mg tablet 2.5 mg PO BID 03/30/25
glimepiride 2 mg tablet 1 mg PO DAILY 03/30/25
prednisone 5 mg tablet 5 mg PO DAILY 03/30/25
Review of Systems
-
History Source: Patient
Constitutional: Reports Other (pt with wt loss to 130's several months ago now back up to 150's)
EENT: Reports No Symptoms
Respiratory: Reports No Symptoms
Abdomen/GI: Reports Abdominal Pain, Nausea, Vomiting and Diarrhea
: Reports No Symptoms
Musculoskeletal: Reports No Symptoms
Skin: Reports No Symptoms
Neurological: Reports Weakness
Endocrine: Reports No Symptoms
Hematologic/Lymphatic: Reports No Symptoms
Vital Signs
Temp Pulse Resp BP Pulse Ox
98.1 F 73 16 147/45 98
03/31/25 07:00 03/31/25 07:00 03/31/25 07:00 03/31/25 07:00 03/31/25 07:00
Physical Exam
Exam
General: Well Developed and Well Nourished
HEENT: Normocephalic and Anicteric
Respiratory: Clear
Cardiac: Regular Rhythm
GI: Soft, Non Tender and Distended (minimal )
Musculoskeletal: No Clubbing and No Cyanosis
Skin: Warm and Dry
Neuro: Awake, Alert and AO x 3
Psych: Calm
Results
WBC 11.2 10^3/uL (4.8-10.8) H 03/31/25 08:19
Hgb 13.0 g/dL (13.0-18.0) 03/31/25 08:19
Hct 39.7 % (39.0-52.0) 03/31/25 08:19
MCV 86.9 fL (80.0-94.0) 03/31/25 08:19
Plt Count 252 10^3/uL (130-400) 03/31/25 08:19
Absolute Neuts (auto) 10.7 10^3/uL (1.4-6.5) H 03/30/25 15:32
Sodium 145 mmol/L (135-145) 03/30/25 23:37
Potassium 4.1 mmol/L (3.5-5.1) 03/30/25 23:37
Chloride 113 mmol/L (98-107) H 03/30/25 23:37
Carbon Dioxide 24 mmol/L (22-30) 03/30/25 23:37
BUN 19 mg/dl (9-20) 03/30/25 23:37
Creatinine 1.1 mg/dL (0.7-1.3) 03/30/25 23:37
Calcium 7.6 mg/dl (8.4-10.2) L 03/30/25 23:37
Total Bilirubin 0.8 mg/dl (0.2-1.3) 03/30/25 15:32
AST 24 U/L (17-59) 03/30/25 15:32
ALT 20 U/L (0-50) 03/30/25 15:32
Alkaline Phosphatase 73 U/L (38-126) 03/30/25 15:32
Lipase 81 U/L (23-300) 03/30/25 15:32
Diagnostic Image Results:
03/30/25 CR Obstruct Series W/pa Chest
New mild small bowel dilatation with air-fluid levels concerning for developing small bowel obstruction. The air in the rectum suggests this is early or partial. Small bowel ileus not excluded.
No acute disease of the chest.
03/08/25 CT Abd/Pelvis with IV contrast:
IMPRESSION:
1. Probable gastritis change and gastroesophageal reflux. Neoplasm such as lymphoma is less likely although not definitely excluded.
2. Probable enteritis/ileus.
3. Questionable cystitis.
Prior GI Procedures:
06/15/2023, Dr. Esparza:
-One 10 mm polyp at the hepatic flexure, removed with
a hot snare. Resected and retrieved.
- One diminutive polyp in the descending colon,
removed with a jumbo cold forceps. Resected and
retrieved.
- Diverticulosis in the sigmoid colon.
-Path: tubular adenomas
-Repeat in 3 years for surveillance.
07/29/24 EGD ([facility]) - Normal proximal esophagus.
- Small amount of retained fluid in the mid esophagus,
suctioned and cleared.
- [place]-colored mucosa suspicious for short-segment
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
C0-M1 per [place] criteria. Biopsied. (negative Barretts)
- Otherwise, normal esophagus without any evidence of
esophagitis, margo-resendez tears or ulcerations
- Multiple, benign appearing gastric polyps.
Endoscopically, consistent with benign fundic gland
polyps and left intact as all were less than 1 cm
- A small amount of food (residue) in the gastric
antrum
- Otherwise, normal stomach on direct and retroflexion
views
- Small amount of retained food/residue in the
examined duodenum up to the third portion
- The examination was otherwise normal.
path neg
EGD:� Multiple EGDs in the past, by Dr. Corrigan, reports negative
Assessment / Plan
-
75 year-old male well-known to our practice (Dr. Esparza) and follow with Dr. Elder at [facility] for last 2 years with history of scleroderma,chronic intestinal pseudoobstruction/dysmotility, gastroparesis, SIBO, ABHIJEET, GERD, TA colon polyps,
chronic pancreatitis with calcification on imaging, ASCVD, pulm fibrosis, prior T12 fracture 06/2024 managed (Steroids, back brace), NIDDM, prior phong, diverticulitis, and coffee-ground emesis in the past with negative EGD. With chronic GI
issue with Scleroderma and SIBO pt has been following with Dr. Jacome at [facility] maintained on regimen of Xifaxan, Motegrity, magnesium, pantoprazole, Mestinon and Reglan presents to the emergency with recurrent GI issues. Per chart no
admissions from September with well controlled symptoms but then was admitted in Mid February after initiation of amoxicillin for dental work with diarrhea. He now presents with 4 weeks of recurrent episodes of ongoing GI issues with diarrhea, abdominal
pain, nausea, and vomiting. pt was unable to eat of drink for 18 hours with dizziness and headache leading to admission. In review with patient he will eat and get feeling of stomach gurgling and certain taste in mouth. Then several hours later
will have GI symptoms will get GI symptoms with pain, nausea, vomiting, and diarrhea. Some episodes as short and pt able to manage at home but need for IV fluid and IV meds to control prolonged episode. Pt also with recent ABHIJEET with hematology
follow.
03/30 obs series on admission with New mild small bowel dilatation with air-fluid levels concerning for developing small bowel obstruction. The air in the rectum suggests this is early or partial. Small bowel ileus not excluded.
CT a/p 03/08 on last admission with mild fluid distention of the distal thoracic esophagus suggesting component of GERD. Remonstration of diffuse gastric wall thickening similar to prior. Neoplasm such as lymphoma is less likely although not
definitely excluded. Probable enteritis/ileus. Questionable cystitis.
EGD 07/29/2024 that showed normal proximal esophagus. Small amount of retained fluid in the midesophagus suctioned cleared. [place]-colored mucosa suspicious for short segment Pickard's but neg pathology. Otherwise normal esophagus without any
evidence of esophagitis, Margo-Resendez tear or ulcers. Multiple benign-appearing gastric polyps. Small amount of food residue in the gastric antrum otherwise normal stomach. Small amount of food residue in examined duodenum.
colon 05/2023 with TA polyp, diverticulosis- due 3 year follow up
-recurrent episode of nausea, vomiting, abdominal pain and diarrhea with hx chronic scleroderma/dysmotility/chronic intestinal pseudoobstruction/gastroparesis/SIBO
-ABHIJEET with hematology follow
-hypocalcemia/hypomagnesemia
other medical problems:
-EGD with retained fluid and esophageal dysmotility
-GERD
-TA colon polyps
-chronic pancreatitis with calcification on imaging
-ASCVD
- pulm fibrosis
- prior T12 fracture with fall 06/2024 managed with Steroids, back brace
NIDDM-- hbg A1c 5.3 on 03/09/25
-prior phong
-diverticulitis
PLAN:
etiology of recurrent GI symptoms with concern for recurrent pseudo obstruction with Scleroderma vs less likely gastroparesis with recent stable hbg A1C, obstructive process as suggested on imaging on admission, gastroenteritis, vs other
pt already feeling better -- he is asking for trial of fluid liquid diet as been though this multiple times in past and feels can tolerate diet- advance to ADA/low residue as tolerated if tolerating fulls
if intolerant of diet consider CT with oral contrast as abd imaging did question Small bowel obstruction
current medication regiment Xifaxan 275mg BID, prednisone 5mg daily, Mestinon 30mg BID, Reglan 5mg IV Q 8 (home dose Reglan 5mg PO BID), protonix 40mg daily-- currently off Motegrity as not on formulary(resume on discharge)
replete electrolytes -- may need mag supplement on discharge-- Pt has magnesium glycinate listed as PRN on home med list
Pt will need to reschedule heme follow up for ABHIJEET as was due today
he was recommended repeat colonoscopy but was not sure he wanted to proceed
advised to call Dr. Esparza's office to arrange if would like to proceed locally -- may need prolonged prep with chronic GI issues
pt due GI follow up with Dr. Jacome at [facility] in May
-
-
Thank you for consultation and allowing me to participate in the patient's care. Please call the extrusion operator GI physician during the after hours with any questions or concerns.
[2025-03-31] MEDS: NSS (PRESERVATIVE FREE) 10 ML IV (09:36)
[2025-03-31] MEDS: PROTONIX IV 40 MG IV (09:36)
[2025-03-31] MEDS: LIPITOR PO (09:37)
[2025-03-31] MEDS: DELTASONE PO (09:37)
[2025-03-31] MEDS: XIFAXAN PO (09:38)
[2025-03-31] MEDS: NORVASC 2.5 MG PO (09:39)
[2025-03-31] MEDS: MESTINON PO (09:40)
[2025-03-31 09:55] LABS: Blood Urea Nitrogen 16 mg/dl (9-20); Calcium 7.8 mg/dl (8.4-10.2); Carbon Dioxide 20 mmol/L (22-30); Chloride 114 mmol/L (98-107); Estimated Creatinine Clearance 65 ml/min; Glucose 106 mg/dl (70-99); Potassium 3.8 mmol/L (3.5-5.1); Sodium 142 mmol/L (135-145); eGFR > 60.00
[2025-03-31 11:36] LABS: Hepatitis C Antibody Negative (Negative)
[2025-03-31 12:07] LABS: Glucose - Point of Care 129 mg/dl (70-99)
[2025-03-31] MEDS: DELTASONE 5 MG PO (14:33)
[2025-03-31] MEDS: REGLAN 5 MG IV (14:33)
[2025-03-31] MEDS: XIFAXAN 275 MG PO (14:34)
[2025-03-31] MEDS: MESTINON 30 MG PO (14:34)
[2025-03-31] MEDS: LIPITOR 80 MG PO (14:34)
[2025-03-31 15:41] VITALS: BP 143/80
--- NOTE | 2025-03-31 16:00 | CM ---
Patient will d/c today. Patient seen bedside, initial assessment completed. Patient is a 75-year-old with past medical history significant for CAD status post tenting scleroderma, gastroparesis and malabsorption who presents to the emergency
department with intractable nausea and dry heaves.
Patient resides alone in a 2STH, no steps to enter. Patient is independent in all areas. No DME reported. No SNF/HC hx. 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
Address, points of contact and insurance verified
PCP: Tamara Bell
Pharmacy: [facility]
Patient aware of d/c today. IMM verbally reviewed, copy provided, copy on chart
Son will transport patient home
No CM needs at this time
Plan: Home today, no needs
[2025-03-31 16:27] LABS: Glucose - Point of Care 169 mg/dl (70-99)
[2025-03-31] MEDS: NOVOLOG FLEXPEN-LOW RESISTANCE 1 UNITS SC (16:51)
--- NOTE | 2025-04-01 14:13 | W.DCSUMMARY ---
Discharge Summary
Discharge Data
Date of Admission: 03/30/25
Date of Discharge: 03/31/25
-
Pending Results: No
Hospital Course
75 years old male admitted with nausea, vomiting, abdominal pain and diarrhea. Patient described his GI symptoms are similar to prior episodes. Patient had history of scleroderma, chronic intestinal pseudoobstruction, dysmotility, gastroparesis.
Patient was started on intravenous fluid and given intravenous Reglan with bowel rest. Patient was evaluated by GI. His symptoms started to improve and diet was advanced slowly. GI doctor recommended outpatient follow-up with his GI specialist.
Patient remained hemodynamically stable. He tolerated diet. Patient felt better and requested discharge , he was discharged home in a stable condition.
Discharge Plan
-
Patient Disposition: Home (Routine Discharge)
Discharge Diagnosis/Procedures: Episode of nausea, vomiting, abdominal pain, diarrhea
Diet: As tolerated, Low Residue and Diabetic, Carb Controlled
Referrals:
Luiz Jacome MD [Non-Admitting Privileges, Internal Medicine]
Referral Note: follow up as scheduled for May
Maicol Tobias DO [Active, Hematology / Oncology]
Referral Note: reschedule follow up with hematology for follow up for anemia
Dimitri Esparza MD [Active, Gastroenterology]
Referral Note: call office to arrange colonoscopy if wish to proceed for anemia.
Tamara Bell MD [Family Provider, Family Practice]
Prescriptions:
New
metoclopramide HCl [Reglan] 5 mg tablet
5 mg PO QIDPRN PRN (Reason: nausea and vomiting) Qty: 20 0RF
Continued
aspirin 81 MG tablet,delayed release (DR/EC)
81 mg PO HS
atorvastatin 80 MG tablet
80 mg PO DAILY
pyridostigmine bromide 60 mg tablet
30 mg PO BID
prucalopride [Motegrity] 2 mg tablet
2 mg PO HS
pantoprazole 40 mg tablet,delayed release (DR/EC)
40 mg PO DAILY
magnesium glycinate 100 mg Tablet
100 mg PO DAILYPRN PRN (Reason: low magnesium)
rifaximin 550 mg Tablet
275 mg PO DAILY
prednisone 5 mg tablet
5 mg PO DAILY
amlodipine 2.5 mg tablet
2.5 mg PO BID
glimepiride 2 mg tablet
1 mg PO DAILY
Discontinued
metoclopramide HCl 5 mg tablet
5 mg PO BID
Discharge Orders:
Discharge Patient (As Directed); Ordered 03/31/25
Ordered By: Samantha Umana
Discharge Date and Time
Discharge Date/Time: 03/31/25 17:41
Print Language: DANISH
== END 2025-03-31 17:41 | disposition home or self-care (01) | DRG 389 ==
LOC: 4 WEST ACU 07:47
PROVIDERS: Physician Assistant; ADMITTING PHYSICIAN Internal Medicine; ATTENDING PHYSICIAN Internal Medicine; EMERGENCY PHYSICIAN Emergency Medicine; FAMILY PHYSICIAN Family Medicine; OTHER PHYSICIAN Internal Medicine Gastroenterology
DX: K56.609 Unspecified intestinal obstruction, unspecified as to partial versus complete obstruction (principal); K86.1 Other chronic pancreatitis; N17.9 Acute kidney failure, unspecified; K90.9 Intestinal malabsorption, unspecified; E11.43 Type 2 diabetes mellitus with diabetic autonomic (poly)neuropathy; K31.84 Gastroparesis; K29.70 Gastritis, unspecified, without bleeding; M34.9 Systemic sclerosis, unspecified; E83.42 Hypomagnesemia; E83.51 Hypocalcemia; I25.10 Atherosclerotic heart disease of native coronary artery without angina pectoris; J84.10 Pulmonary fibrosis, unspecified; I10 Essential (primary) hypertension; E78.5 Hyperlipidemia, unspecified; K21.9 Gastro-esophageal reflux disease without esophagitis; Z95.5 Presence of coronary angioplasty implant and graft; F03.90 Unspecified dementia, unspecified severity, without behavioral disturbance, psychotic disturbance, mood disturbance, and anxiety; Z79.82 Long term (current) use of aspirin; E78.00 Pure hypercholesterolemia, unspecified; Z79.84 Long term (current) use of oral hypoglycemic drugs; Z79.899 Other long term (current) drug therapy; Z86.0100 Personal history of colon polyps, unspecified; E86.0 Dehydration
CPT/HCPCS: 74022; 80048; 80053; 82962; 83690; 83735; 85025; 85027; 86803; 93005; 96361; 96365; 96375; 96376; 99285

== ENCOUNTER → 2025-04-14 06:50 | Outpatient (REF) | payer MEDICARE, OTHER, SELFPAY | LOC: RSP 06:50 | PROVIDERS: ATTENDING PHYSICIAN Internal Medicine Rheumatology; FAMILY PHYSICIAN Family Medicine | DX: M34.9 Systemic sclerosis, unspecified (principal); M19.90 Unspecified osteoarthritis, unspecified site; J84.9 Interstitial pulmonary disease, unspecified | CPT/HCPCS: 88738; 94010; 94727; 94729 ==

== ENCOUNTER 2025-05-29 07:15 | Emergency (ER) | payer MEDICARE, OTHER, SELFPAY ==
[2025-05-29] VITALS (9 sets, daily range): BP systolic 132–172; BP diastolic 72–88; PULSE 82–96; BMI 22.2
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
[2025-05-29] MEDS: NSS 500 IV (08:24)
[2025-05-29 08:29] LABS: Hematocrit 38.3 % (39.0-52.0); Hemoglobin 12.8 g/dL (13.0-18.0); Mean Corp Hgb Conc. 33.4 g/dL (33.0-37.0); Mean Corpuscular Volume 90.5 fL (80.0-94.0); Nucleated Red Blood Cells % 0 % (-); Platelet Count 263 10^3/uL (130-400); Red Cell Dist. Width 15.7 % (11.5-14.5)
[2025-05-29 08:38] LABS: ALT (SGPT) 20 U/L (0-50); AST (SGOT) 18 U/L (17-59); Albumin 4.3 g/dl (3.5-5.0); Alkaline Phosphatase 99 U/L (38-126); Blood Urea Nitrogen 30 mg/dl (9-20); Calcium 9.0 mg/dl (8.4-10.2); Carbon Dioxide 25 mmol/L (22-30); Chloride 106 mmol/L (98-107); Glucose 155 mg/dl (70-99); Lipase 116 U/L (23-300); Magnesium 1.3 mg/dl (1.6-2.3); Potassium 4.1 mmol/L (3.5-5.1); Sodium 138 mmol/L (135-145); Total Protein 7.0 g/dl (6.3-8.2); eGFR 44.93
[2025-05-29 08:54] LABS: COVID-19 Antigen Negative (Negative)
[2025-05-29] MEDS: MAGNESIUM OXIDE 400 MG PO (10:11)
[2025-05-29 10:33] LABS: Urine Character Slightly Cloudy (Clear)
[2025-05-29 11:16] LABS: Urine Squamous Cell 16-20 /LPF (Few)
[2025-05-29 11:17] LABS: Urine Red Blood Cell 0-2 /HPF (0-2)
[2025-05-29] MEDS: MAGNESIUM SULFATE 102 GRAMS IV (11:33)
== END 2025-05-29 12:53 | disposition home or self-care (01) ==
LOC: EMR 07:15
PROVIDERS: Physician Assistant; EMERGENCY PHYSICIAN Emergency Medicine; FAMILY PHYSICIAN Family Medicine
DX: E61.2 Magnesium deficiency (principal); E86.0 Dehydration; R53.1 Weakness; I25.10 Atherosclerotic heart disease of native coronary artery without angina pectoris; I10 Essential (primary) hypertension; E78.00 Pure hypercholesterolemia, unspecified; E11.9 Type 2 diabetes mellitus without complications; I25.2 Old myocardial infarction; J84.10 Pulmonary fibrosis, unspecified; M34.9 Systemic sclerosis, unspecified; Z82.49 Family history of ischemic heart disease and other diseases of the circulatory system; Z87.01 Personal history of pneumonia (recurrent); Z90.49 Acquired absence of other specified parts of digestive tract; Z95.5 Presence of coronary angioplasty implant and graft
CPT/HCPCS: 99283; 80053; 81003; 81015; 83690; 83735; 84443; 85025; 87502; 87811; 93005

== ENCOUNTER 2025-06-02 16:46 | Inpatient (IN) | payer MEDICARE, OTHER, SELFPAY ==
[2025-06-02] VITALS (14 sets, daily range): BP systolic 132–177; BP diastolic 77–94; PULSE 88–106; BMI 21.8; BMI 21.3
--- NOTE | 2025-06-02 09:40 | ED.GENMED ---
History of Present Illness
<Swetha Dave PA-C - Last Filed: 06/02/25 16:07>
General
Chief Complaint: Abdominal Symptoms
Source: patient and records
Exam Limitations: none
Time Seen by Provider: 06/02/25 09:32
History of Present Illness
History of Present Illness:
75yoM with a history of scleroderma, coronary artery disease, hypertension, hyperlipidemia, type 2 diabetes, chronic intestinal pseudo-obstructions and dysmotility, and gastroparesis presenting for evaluation of vomiting. Patient has been having
heartburn for the past several days. He was seen in the ED on 05/29/2025 for fatigue. He received magnesium replacement and was discharged. Patient ate [employer] for dinner last night. About 1 hour later, he again started to experience
worsening heartburn. Around midnight last night, he started with nausea and vomiting. Patient has vomited about 4-5 times since then. Emesis appeared dark, similar to coffee grounds. He reports feeling extremely fatigued and exhausted. He
states this feels different than his prior obstructions. Last bowel movement was around 5 AM which was reportedly normal.
Past History
<Swetha Dave PA-C - Last Filed: 06/02/25 16:07>
Past History
ED Past Medical History: CAD, GERD, HTN, Hypercholesterolemia, NIDDM, [place] and Other (scleroderma, SBO,, PNA, Pulmonary fibrosis, Gastroporesis)
ED Past Surgical History: Cardiac (Stents X 6) and Cholecystectomy
Social History
Tobacco: Non-smoker
Alcohol: None
Drug: None
Personal:
Living: with family
Employment: Retired
Family History
Family History: CAD
Phy Exam
<Swetha Dave PA-C - Last Filed: 06/02/25 16:07>
General Physical Exam
General Presentation: no apparent distress
General Skin: warm and dry
General Habitus: normal and elderly
General Mental: alert
ENT Exam
ENT Exam: normocephalic
Cardiovascular Exam
Cardiovascular Exam: regular rate/rhythm
Pulmonary Exam
Pulmonary Exam: lungs clear, no respiratory distress, no rales, no crackles, no rhonchi and no wheezing
Gastrointestinal Exam
Gastrointestinal Exam: non tender, soft and non distended
Neurological Exam
Neurological Exam: alert
[place] Coma Scale
Eye Opening: Spontaneous
Verbal Response: Oriented
Motor Response: Obeys Commands
GCS Total Score: 15
Skin Exam
Skin Exam: normal color and warm/dry
Psychiatric Exam
Psychiatric Exam: normal mood/affect
Course
Rehanalt;Swetha Dave PA-C - Last Filed: 06/02/25 16:07>
Orders/Labs/Results
Orders:
Orders
06/02/25 07:31
ECG [Electrocardiogram (*1)] Urgent
Reason for Study: Chest Pain
EKG- Treatment ONCE
06/02/25 09:40
CT Abd/pel W Iv And Oral Contr Urgent
Comment:
Reason For Exam: vomiting, history of SBO
0.9% Sodium Chloride 1000 ml [Nss] 1,000 ml IV BOLUS
Famotidine [Pepcid] 20 mg IV NOW STA
Iohexol [Omnipaque] See Protocol PO NOW STA
Ondansetron Injectable [Zofran] 4 mg IV NOW STA
Pantoprazole [Protonix IV] 40 mg IV NOW STA
06/02/25 11:19
Complete Blood Count/With Diff Urgent
Comprehensive Metabolic Panel Urgent
Lipase Urgent
Magnesium Urgent
Troponin I Urgent
06/02/25 11:49
Magnesium Sulfate 2 Gram/50 ml [Magnesium Sulfate] 2 gram in 50 ml IV NOW
06/02/25 13:47
Hydrocortisone Sod Succinate [Solu-Cortef] 100 mg IV NOW STA
06/02/25 15:38
Admit/Transfer Patient As Directed
Co-Sign Provider:
Level of Care: Inpatient admission
Assign to:: Medical/Surgical
Physician / Group: Hospitalist
Diagnosis: Gastritis
Reason for Hospitalization: Gastritis
Expected length of stay greater than two midnights?: Yes
ELOS- Estimated Length of Stay in days: 2
I certify the patient meets the requirements for IP care: Yes
06/02/25 15:39
PRN Pain Medication Management As Directed
May give lesser potent ordered pain med per pt: Yes
preference::
Protocol:: Medication orders for pain may be administered in a
manner that supports deferring to patient preference
when the pt is:
- Requesting an ordered lesser potent pain medication.
Least to most potent pain medications are defined
as: acetaminophen < NSAID < tramadol < opioids
(morphine, oxycodone, hydromorphone).
- Requesting a lesser dose of the same medication IF
ORDERED.
- Requesting a less intrusive route of administration
if both routes are prescribed by the provider (PO <
IV).
06/02/25 15:52
Code Status As Directed
Resuscitation Status: Full Code
Abnormal Lab Results
06/02/25
11:19
WBC 13.7 H 10^3/uL
(4.8-10.8)
RBC 4.16 L 10^6/uL
(4.70-6.10)
Hgb 12.5 L g/dL
(13.0-18.0)
MCV 94.7 H fL
(80.0-94.0)
MCHC 31.7 L g/dL
(33.0-37.0)
RDW 15.6 H %
(11.5-14.5)
Abs Immat Gran (auto) 0.1 H 10^3/uL
(0-0.05)
Absolute Neuts (auto) 11.0 H 10^3/uL
(1.4-6.5)
Absolute Lymphs (auto) 1.1 L 10^3/uL
(1.2-3.4)
Absolute Monos (auto) 1.3 H 10^3/uL
(0.1-0.6)
Neutrophils % 80.4 H %
(42.2-75.2)
Lymphocytes % 7.9 L %
(20.5-51.1)
BUN 29 H mg/dl
(9-20)
Creatinine 1.4 H mg/dL
(0.7-1.3)
Glucose 131 H mg/dl
(70-99)
Magnesium 1.3 L mg/dl
(1.6-2.3)
06/02/25 11:19
06/02/25 11:19
Vital Signs
Initial and Last Documented VS:
Initial Vital Signs
Temp Pulse BP Pulse Ox
98.0 F 101 165/94 99
06/02/25 07:36 06/02/25 07:36 06/02/25 07:36 06/02/25 07:36
Last Documented Vital Signs
Temp Pulse Resp BP Pulse Ox
98.0 F 108 20 170/92 96
06/02/25 07:36 06/02/25 15:01 06/02/25 14:00 06/02/25 15:01 06/02/25 15:00
<Jag Munguia, DO - Last Filed: 06/02/25 13:49>
Orders/Labs/Results
Orders:
Orders
06/02/25 07:31
ECG [Electrocardiogram (*1)] Urgent
Reason for Study: Chest Pain
EKG- Treatment ONCE
06/02/25 09:40
CT Abd/pel W Iv And Oral Contr Urgent
Comment:
Reason For Exam: vomiting, history of SBO
0.9% Sodium Chloride 1000 ml [Nss] 1,000 ml IV BOLUS
Famotidine [Pepcid] 20 mg IV NOW STA
Iohexol [Omnipaque] See Protocol PO NOW STA
Ondansetron Injectable [Zofran] 4 mg IV NOW STA
Pantoprazole [Protonix IV] 40 mg IV NOW STA
06/02/25 11:19
Complete Blood Count/With Diff Urgent
Comprehensive Metabolic Panel Urgent
Lipase Urgent
Magnesium Urgent
Troponin I Urgent
06/02/25 11:49
Magnesium Sulfate 2 Gram/50 ml [Magnesium Sulfate] 2 gram in 50 ml IV NOW
06/02/25 13:47
Hydrocortisone Sod Succinate [Solu-Cortef] 100 mg IV NOW STA
06/02/25 15:38
Admit/Transfer Patient As Directed
Co-Sign Provider:
Level of Care: Inpatient admission
Assign to:: Medical/Surgical
Physician / Group: Hospitalist
Diagnosis: Gastritis
Reason for Hospitalization: Gastritis
Expected length of stay greater than two midnights?: Yes
ELOS- Estimated Length of Stay in days: 2
I certify the patient meets the requirements for IP care: Yes
06/02/25 15:39
PRN Pain Medication Management As Directed
May give lesser potent ordered pain med per pt: Yes
preference::
Protocol:: Medication orders for pain may be administered in a
manner that supports deferring to patient preference
when the pt is:
- Requesting an ordered lesser potent pain medication.
Least to most potent pain medications are defined
as: acetaminophen < NSAID < tramadol < opioids
(morphine, oxycodone, hydromorphone).
- Requesting a lesser dose of the same medication IF
ORDERED.
- Requesting a less intrusive route of administration
if both routes are prescribed by the provider (PO <
IV).
06/02/25 15:52
Code Status As Directed
Resuscitation Status: Full Code
Abnormal Lab Results
06/02/25
11:19
WBC 13.7 H 10^3/uL
(4.8-10.8)
RBC 4.16 L 10^6/uL
(4.70-6.10)
Hgb 12.5 L g/dL
(13.0-18.0)
MCV 94.7 H fL
(80.0-94.0)
MCHC 31.7 L g/dL
(33.0-37.0)
RDW 15.6 H %
(11.5-14.5)
Abs Immat Gran (auto) 0.1 H 10^3/uL
(0-0.05)
Absolute Neuts (auto) 11.0 H 10^3/uL
(1.4-6.5)
Absolute Lymphs (auto) 1.1 L 10^3/uL
(1.2-3.4)
Absolute Monos (auto) 1.3 H 10^3/uL
(0.1-0.6)
Neutrophils % 80.4 H %
(42.2-75.2)
Lymphocytes % 7.9 L %
(20.5-51.1)
BUN 29 H mg/dl
(9-20)
Creatinine 1.4 H mg/dL
(0.7-1.3)
Glucose 131 H mg/dl
(70-99)
Magnesium 1.3 L mg/dl
(1.6-2.3)
06/02/25 11:19
06/02/25 11:19
Vital Signs
Initial and Last Documented VS:
Initial Vital Signs
Temp Pulse BP Pulse Ox
98.0 F 101 165/94 99
06/02/25 07:36 06/02/25 07:36 06/02/25 07:36 06/02/25 07:36
Last Documented Vital Signs
Temp Pulse Resp BP Pulse Ox
98.0 F 108 20 170/92 96
06/02/25 07:36 06/02/25 15:01 06/02/25 14:00 06/02/25 15:01 06/02/25 15:00
<Swetha Dave PA-C - Last Filed: 06/02/25 16:07>
MDM/Problems Addressed
Differential Diagnosis Includes:
75yoM here with n/v and heartburn. Seen in ED last week for similar symptoms. Worsened after eating fast food last night. Hx of scleroderma. Differential diagnosis includes but is not limited to: gastroenteritis, gastritis, PUD, SBO, dehydration
Initial ED plan: Check abdominal labs, magnesium, troponin/EKG, and CT abdomen with IV/PO contrast. IV Zofran, Protonix, Pepcid, and fluid bolus for symptoms.
<Swetha Dave PA-C - Last Filed: 06/02/25 16:07>
*Pulse Oximetry
SaO2: 99
Oxygen Mode of Delivery: Room air
Patient hypoxic: no
*Critical Care Note
Total Time (30-74mins, 75-104mins- exclusive of procedures): Not Applicable
<Swetha Dave PA-C - Last Filed: 06/02/25 16:07>
Update Note
Update Note:
Magnesium 1.3 which was replaced. Creatinine 1.4, improved from 1.6 at last ED visit. No evidence of obstruction on CT but there is findings suggestive of gastritis. Patient continues to feel ill on reassessment. Stress dose steroids ordered and
patient admitted for further management.
ED Attending Note
<Swetha Dave PA-C - Last Filed: 06/02/25 16:07>
-
Portions of this chart may have been created with voice recognition software.� Occasional wrong word or��sound alike� substitutions may have occurred due to the inherent limitations of voice recognition software.
<Jag Munguia DO - Last Filed: 06/02/25 13:49>
ED Attending Note
Patient seen and examined by attending physician: Yes
I performed the substantive portion of visit, reviewed & personally made and approve the management plan that is documented in note by myself or SHARRI.: Yes
ED Attending Note:
Seen with PA examined independently 75-year-old male scleroderma chronic steroids nausea vomit diarrhea second ER visit was unable to keep steroid down yesterday, labs noted states he feels unwell, CT report noted will give stress dose steroids
continue IV fluids replete electrolytes low threshold to admit
Discharge Plan
Departure
Patient Disposition: Admit
Date of Disposition: 06/02/25
Time of Disposition: 13:46
Presentation/result/management discussed w/ accepting MD/DO: Hospitalist
Discharge Problem:
Nausea and vomiting, Gastritis, Hypomagnesemia
Prescriptions:
No Action
aspirin 81 MG tablet,delayed release (DR/EC)
81 mg PO HS
atorvastatin 80 MG tablet
80 mg PO DAILY
pyridostigmine bromide 60 mg tablet
30 mg PO BID
prucalopride [Motegrity] 2 mg tablet
2 mg PO HS
rifaximin 550 mg Tablet
275 mg PO DAILY
prednisone 5 mg tablet
5 mg PO DAILY
glimepiride 2 mg tablet
1 mg PO DAILY
metoclopramide HCl [Reglan] 5 mg tablet
5 mg PO QIDPRN PRN (Reason: nausea and vomiting) Qty: 20 0RF
amlodipine [Norvasc] 5 mg Tablet
2.5 mg PO DAILY
famotidine [Pepcid] 20 mg Tablet
20 mg PO DAILY
Referrals:
Tamara Bell MD [Family Provider, Family Practice]
Interventions
Interventions:
*Risk Screen - Suicide Last Done: 06/02/25 07:39
*General Assessment Last Done: 06/02/25 09:54
*Neglect/Abuse Screening Last Done: 06/02/25 07:39
*ED- Fall Risk Assessment Last Done: 06/02/25 09:54
*ED COVID-19 Vaccine History Last Done: 06/02/25 09:54
*ED Influenza Vaccine History Last Done: 06/02/25 09:54
XO-[id number]-[id number] Assessment Last Done: 06/02/25 09:55
Discharge Date and Time
Print Language: LATVIAN
[2025-06-02] MEDS: ZOFRAN 4 MG IV (09:47)
[2025-06-02] MEDS: PROTONIX IV 40 MG IV ×2 (09:48→21:26)
[2025-06-02] MEDS: OMNIPAQUE 50 ML PO (09:48)
[2025-06-02] MEDS: NSS 1000 IV ×2 (09:48→21:26)
[2025-06-02] MEDS: PEPCID 20 MG IV (09:49)
[2025-06-02 11:25] LABS: Hematocrit 39.4 % (39.0-52.0); Hemoglobin 12.5 g/dL (13.0-18.0); Mean Corp Hgb Conc. 31.7 g/dL (33.0-37.0); Mean Corpuscular Volume 94.7 fL (80.0-94.0); Nucleated Red Blood Cells % 0 % (-); Platelet Count 260 10^3/uL (130-400); Red Cell Dist. Width 15.6 % (11.5-14.5)
[2025-06-02 11:48] LABS: ALT (SGPT) 19 U/L (0-50); AST (SGOT) 17 U/L (17-59); Albumin 4.3 g/dl (3.5-5.0); Alkaline Phosphatase 82 U/L (38-126); Blood Urea Nitrogen 29 mg/dl (9-20); Calcium 9.9 mg/dl (8.4-10.2); Carbon Dioxide 27 mmol/L (22-30); Chloride 105 mmol/L (98-107); Estimated Creatinine Clearance 46 ml/min; Glucose 131 mg/dl (70-99); Lipase 157 U/L (23-300); Magnesium 1.3 mg/dl (1.6-2.3); Potassium 4.0 mmol/L (3.5-5.1); Sodium 140 mmol/L (135-145); Total Protein 6.8 g/dl (6.3-8.2); eGFR 52.74
[2025-06-02 12:00] LABS: Troponin I < 0.012 ng/ml
[2025-06-02] MEDS: MAGNESIUM SULFATE 50 IV (12:11)
[2025-06-02] MEDS: SOLU-CORTEF 100 MG IV (13:55)
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
--- NOTE | 2025-06-02 20:00 | PTCARENOTE ---
Pt arrived to unit from ED, ambulating with x1 assist. VSS, bed in lowest position with call reyes in reach.
[2025-06-02] MEDS: MESTINON PO (21:19)
[2025-06-02] MEDS: NSS (PRESERVATIVE FREE) 10 ML IV (21:26)
[2025-06-02] MEDS: ASPIR LOW (ENTERIC COATED) 81 MG PO (21:28)
[2025-06-02 21:35] LABS: Glucose - Point of Care 141 mg/dl (70-99)
[2025-06-03] VITALS (7 sets, daily range): BP systolic 126–169; BP diastolic 61–87; PULSE 74–98
[2025-06-03 00:15] LABS: Magnesium 1.8 mg/dl (1.6-2.3)
[2025-06-03] MEDS: NSS 1000 IV (05:30)
[2025-06-03 06:24] LABS: Glucose - Point of Care 108 mg/dl (70-99)
[2025-06-03 08:22] LABS: Hematocrit 34.3 % (39.0-52.0); Hemoglobin 11.5 g/dL (13.0-18.0); Mean Corp Hgb Conc. 33.5 g/dL (33.0-37.0); Mean Corpuscular Volume 93.5 fL (80.0-94.0); Nucleated Red Blood Cells % 0 % (-); Platelet Count 241 10^3/uL (130-400); Red Cell Dist. Width 15.3 % (11.5-14.5)
[2025-06-03] MEDS: XIFAXAN 275 MG PO (08:31)
[2025-06-03] MEDS: LIPITOR 80 MG PO (08:31)
[2025-06-03] MEDS: NSS (PRESERVATIVE FREE) 10 ML IV (08:32)
[2025-06-03] MEDS: NORVASC 2.5 MG PO (08:32)
[2025-06-03] MEDS: PROTONIX IV 40 MG IV (08:32)
[2025-06-03] MEDS: DELTASONE 5 MG PO (08:32)
[2025-06-03] MEDS: MESTINON 30 MG PO ×2 (08:36→21:15)
[2025-06-03 08:56] LABS: ALT (SGPT) 16 U/L (0-50); AST (SGOT) 15 U/L (17-59); Albumin 3.8 g/dl (3.5-5.0); Alkaline Phosphatase 90 U/L (38-126); Blood Urea Nitrogen 23 mg/dl (9-20); Calcium 8.9 mg/dl (8.4-10.2); Carbon Dioxide 31 mmol/L (22-30); Chloride 105 mmol/L (98-107); Estimated Creatinine Clearance 42 ml/min; Glucose 112 mg/dl (70-99); Potassium 4.5 mmol/L (3.5-5.1); Sodium 141 mmol/L (135-145); Total Protein 6.2 g/dl (6.3-8.2); eGFR 48.55
[2025-06-03] MEDS: LR 1000 IV (09:27)
[2025-06-03 11:06] LABS: Glycohemoglobin (HgbA1c) 6.5 % (4.0-5.9)
[2025-06-03 12:13] LABS: Glucose - Point of Care 118 mg/dl (70-99)
--- NOTE | 2025-06-03 12:40 | CM ---
CM reviewed chart, patient seen bedside, initial assessment completed.
Patient is a 75 year old male with a history of scleroderma, coronary artery disease, hypertension, hyperlipidemia, type 2 diabetes, chronic intestinal pseudo-obstructions and dysmotility, and gastroparesis presenting for evaluation of vomiting.
Patient resides independently in a two story home, one step to enter through garage.
Patient is independent with ADLs/IADLs, denies use of DME.
Patient denies VN/SNF hx.
PCP Tamara Bell, Pharmacy [facility], confirms prescription coverage.
Patient denies insecurities at home.
CM will continue to follow.
Plan; home no needs.
--- NOTE | 2025-06-03 13:46 | W.PN.HOSP.TC ---
Today's Communication/Plan
-
monitor hgb
resume po ppi
reg diet - patient feels much better; tolerated fld
Monitor renal function, ivf prn
Assessment / Plan
Assessment / Plan
Physical Exam
General: No Apparent Distress
HEENT: NormoCephalic and Atraumatic
Respiratory: Clear
Cardiac: S1/S2 and Regular Rhythm
GI: Soft, Non Tender, Non Distended and Normal Bowel Sounds
Skin: Warm and Dry
Neuro: Awake, Alert, Oriented and AO x 3
Psych: Calm
#Coffee-ground vomitus
EGD 2023 with evidence of short segment Pickard's esophagus. No bleeding ulcers found
Etiology likely due to gastritis versus peptic ulcer disease versus duodenal ulcers versus reflux esophagitis
Likely Scerloderma 'Flare' as per GI - they will see the patient if hgb drops further or cannot tolerate po regimen for GERD
Resume pantoprazole 40mg daily - will not bid as due to continued hypomagnesemia onit
Monitor CBC
Regular diet
#Hypomagnesemia
Chronic
S/p magnesium repletion in the ER
resume standing po regimen
F/u mag
#FLORENCE
No history of CKD
Likely prerenal due to dehydration
Creatinine baseline 1
Today at 1.4
IV fluids
Check BMP
#Compression fracture of T7
Patient does not complain of any pain now
Will monitor for now
#Scleroderma
Can continue prucalopride, rifaximin
Metoclopramide as needed
#NIDDM
Will hold glimepiride
Will start basal bolus�low
Monitor blood sugars
#Hyperlipidemia
Continue atorvastatin
#CAD s/p stents
Continue atorvastatin
Continue aspirin
#Hypertension
Continue amlodipine
As needed labetalol IV
Diet�clears for now, advance as tolerated
DVT prophylaxis�SCDs
Full code
Anticipated Discharge: 24 - 48 hours
Subjective/Interval History
-
Date of Service: June 03, 2025
No further bouts of coffee-ground emesis
Objective Data
-
Labs:
Laboratory Results
06/03/25
07:43
WBC 10.7
Hgb 11.5 L
Hct 34.3 L
Plt Count 241
Sodium 141
Potassium 4.5
Chloride 105
Carbon Dioxide 31 H
BUN 23 H
Creatinine 1.5 H
Glucose 112 H
Calcium 8.9
Total Bilirubin 1.0
AST 15 L
ALT 16
Alkaline Phosphatase 90
Vital Signs:
Vital Signs
Temp Pulse Resp BP Pulse Ox
97.7 F 92 18 141/78 99
06/03/25 11:00 06/03/25 11:00 06/03/25 11:00 06/03/25 11:00 06/03/25 11:00
I&O
06/02/25 06/03/25 06/04/25
06:59 06:59 06:59
Intake Total 1000 / 1000
Balance 1000 / 1000
Review of Systems
-
History Source: Patient
All other systems: Not reviewed unless documented
Data Reviewed
-
CT Scan: Report Reviewed by me
Labs: Labs Reviewed by me
[2025-06-03 16:45] LABS: Glucose - Point of Care 133 mg/dl (70-99)
[2025-06-03] MEDS: NOVOLOG FLEXPEN-LOW RESISTANCE SC (17:36)
[2025-06-03] MEDS: ASPIR LOW (ENTERIC COATED) 81 MG PO (21:15)
[2025-06-03] MEDS: MAGNESIUM OXIDE 400 MG PO (21:15)
[2025-06-03 21:41] LABS: Glucose - Point of Care 89 mg/dl (70-99)
--- NOTE | 2025-06-03 23:08 | W.PN.UPDATE ---
Update Note
Progress Note Update
Patient stated he takes Amlodipine 5 mg PO in am and Amlodipine 2.5 mg PO at night. RN to update home medication list. Medication orders changed.
[2025-06-03] MEDS: NSS (PRESERVATIVE FREE) IV (23:10)
[2025-06-04 07:30] VITALS: BP 142/77
[2025-06-04 07:41] LABS: Glucose - Point of Care 113 mg/dl (70-99)
[2025-06-04] MEDS: NOVOLOG FLEXPEN-LOW RESISTANCE SC (07:41)
[2025-06-04] MEDS: MAGNESIUM OXIDE 400 MG PO ×2 (07:42→20:03)
[2025-06-04] MEDS: MESTINON 30 MG PO ×2 (07:42→20:03)
[2025-06-04] MEDS: PROTONIX 40 MG PO (07:42)
[2025-06-04] MEDS: LIPITOR 80 MG PO (07:42)
[2025-06-04] MEDS: NORVASC 5 MG PO (07:42)
[2025-06-04] MEDS: XIFAXAN 275 MG PO (07:43)
[2025-06-04] MEDS: DELTASONE 5 MG PO (07:46)
[2025-06-04 10:25] LABS: Hematocrit 35.1 % (39.0-52.0); Hemoglobin 11.9 g/dL (13.0-18.0); Mean Corp Hgb Conc. 33.9 g/dL (33.0-37.0); Mean Corpuscular Volume 92.6 fL (80.0-94.0); Platelet Count 233 10^3/uL (130-400); Red Cell Dist. Width 15.1 % (11.5-14.5)
[2025-06-04 10:49] LABS: ALT (SGPT) 17 U/L (0-50); AST (SGOT) 16 U/L (17-59); Albumin 3.9 g/dl (3.5-5.0); Alkaline Phosphatase 80 U/L (38-126); Blood Urea Nitrogen 24 mg/dl (9-20); Calcium 8.7 mg/dl (8.4-10.2); Carbon Dioxide 29 mmol/L (22-30); Chloride 102 mmol/L (98-107); Estimated Creatinine Clearance 42 ml/min; Glucose 261 mg/dl (70-99); Magnesium 1.9 mg/dl (1.6-2.3); Potassium 3.9 mmol/L (3.5-5.1); Sodium 136 mmol/L (135-145); Total Protein 6.3 g/dl (6.3-8.2); eGFR 48.55
[2025-06-04] MEDS: NOVOLOG FLEXPEN-LOW RESISTANCE 2 UNITS SC (11:47)
[2025-06-04 11:49] LABS: Glucose - Point of Care 239 mg/dl (70-99)
--- NOTE | 2025-06-04 14:10 | W.PN.HOSP.TC ---
Today's Communication/Plan
-
ivf
renal us
pvr
monitor hgb
Assessment / Plan
Assessment / Plan
Physical Exam
General: No Apparent Distress
HEENT: NormoCephalic and Atraumatic
Respiratory: Clear
Cardiac: S1/S2 and Regular Rhythm
GI: Soft, Non Tender, Non Distended and Normal Bowel Sounds
Skin: Warm and Dry
Neuro: Awake, Alert, Oriented and AO x 3
Psych: Calm
#Coffee-ground vomitus
EGD 2023 with evidence of short segment Pickard's esophagus. No bleeding ulcers found
Etiology likely due to gastritis versus peptic ulcer disease versus duodenal ulcers versus reflux esophagitis
Likely Scleroderma 'Flare' as per GI - they will see the patient if hgb drops further or cannot tolerate po regimen for GERD
Resume pantoprazole 40mg daily - will not bid as due to continued hypomagnesemia onit
Monitor CBC
Regular diet
#Hypomagnesemia
Chronic
S/p magnesium repletion in the ER
resume standing po regimen
F/u mag
#FLORENCE
No history of CKD
Likely prerenal due to dehydration
Creatinine baseline 1
Today at 1.4
IV fluids
Check BMP
-Renal US, PVR
#Compression fracture of T7
Patient does not complain of any pain now
Will monitor for now
#Scleroderma
Can continue prucalopride, rifaximin
Metoclopramide as needed
#NIDDM
Will hold glimepiride
Will start basal bolus�low
Monitor blood sugars
#Hyperlipidemia
Continue atorvastatin
#CAD s/p stents
Continue atorvastatin
Continue aspirin
#Hypertension
Continue amlodipine
As needed labetalol IV
Diet�clears for now, advance as tolerated
DVT prophylaxis�SCDs
Full code
Anticipated Discharge: Within 24 hours
Subjective/Interval History
-
Date of Service: June 04, 2025
no further coffee ground emesis
Objective Data
-
Labs:
Laboratory Results
06/04/25
10:06
WBC 9.6
Hgb 11.9 L
Hct 35.1 L
Plt Count 233
Sodium 136
Potassium 3.9
Chloride 102
Carbon Dioxide 29
BUN 24 H
Creatinine 1.5 H
Glucose 261 H
Calcium 8.7
Total Bilirubin 1.0
AST 16 L
ALT 17
Alkaline Phosphatase 80
Vital Signs:
Vital Signs
Temp Pulse Resp BP Pulse Ox
97.3 F 82 16 142/77 98
06/04/25 07:30 06/04/25 07:30 06/04/25 07:30 06/04/25 07:30 06/04/25 07:30
I&O
06/03/25 06/04/25 06/05/25
06:59 06:59 06:59
Intake Total 1000 / 1000 1200 / 1200
Balance 1000 / 1000 1200 / 1200
Review of Systems
-
History Source: Patient
All other systems: Not reviewed unless documented
Data Reviewed
-
CT Scan: Report Reviewed by me
Labs: Labs Reviewed by me
[2025-06-04 15:30] VITALS: BP 156/80
[2025-06-04 15:34] LABS: Glucose - Point of Care 170 mg/dl (70-99)
[2025-06-04] MEDS: NOVOLOG FLEXPEN-LOW RESISTANCE 1 UNITS SC (15:53)
[2025-06-04] MEDS: LR 1000 IV (15:53)
[2025-06-04 16:39] LABS: Glucose - Point of Care 162 mg/dl (70-99)
[2025-06-04] MEDS: NORVASC 2.5 MG PO (21:33)
[2025-06-04] MEDS: ASPIR LOW (ENTERIC COATED) 81 MG PO (21:33)
[2025-06-04 21:34] LABS: Glucose - Point of Care 169 mg/dl (70-99)
[2025-06-04 23:54] VITALS: BP 145/75
[2025-06-05] MEDS: LR 1000 IV (02:54)
[2025-06-05 07:00] VITALS: BP 127/83
[2025-06-05 07:51] LABS: Glucose - Point of Care 119 mg/dl (70-99)
[2025-06-05] MEDS: NOVOLOG FLEXPEN-LOW RESISTANCE SC (08:14)
[2025-06-05 09:37] LABS: Hematocrit 33.6 % (39.0-52.0); Hemoglobin 11.2 g/dL (13.0-18.0); Mean Corp Hgb Conc. 33.3 g/dL (33.0-37.0); Mean Corpuscular Volume 91.1 fL (80.0-94.0); Platelet Count 226 10^3/uL (130-400); Red Cell Dist. Width 15.0 % (11.5-14.5)
[2025-06-05] MEDS: MAGNESIUM OXIDE 400 MG PO (09:47)
[2025-06-05] MEDS: LIPITOR 80 MG PO (09:47)
[2025-06-05] MEDS: MESTINON 30 MG PO (09:47)
[2025-06-05] MEDS: PROTONIX 40 MG PO (09:47)
[2025-06-05] MEDS: NORVASC 5 MG PO (09:47)
[2025-06-05] MEDS: XIFAXAN 275 MG PO (09:48)
[2025-06-05] MEDS: DELTASONE 5 MG PO (09:48)
[2025-06-05 10:29] LABS: Blood Urea Nitrogen 20 mg/dl (9-20); Calcium 8.1 mg/dl (8.4-10.2); Carbon Dioxide 28 mmol/L (22-30); Chloride 103 mmol/L (98-107); Estimated Creatinine Clearance 49 ml/min; Glucose 212 mg/dl (70-99); Potassium 3.8 mmol/L (3.5-5.1); Sodium 136 mmol/L (135-145); eGFR 57.65
[2025-06-05 11:43] LABS: Glucose - Point of Care 334 mg/dl (70-99)
--- NOTE | 2025-06-05 11:44 | CM ---
Chart reviewed and patient to return to home today, no needs.
Plan; Home no needs.
[2025-06-05] MEDS: NOVOLOG FLEXPEN-LOW RESISTANCE 4 UNITS SC (12:14)
--- NOTE | 2025-06-05 13:05 | W.PN.HOSP.TC ---
Addendum entered and electronically signed by Lux Lorenz MD 06/05/25 15:49:
[id number]
Original Note:
Today's Communication/Plan
-
mag oxide bid
ppi daily
flomax
f/u pcp, urology, gi outpt
Assessment / Plan
Assessment / Plan
Physical Exam
General: No Apparent Distress
HEENT: NormoCephalic and Atraumatic
Respiratory: Clear
Cardiac: S1/S2 and Regular Rhythm
GI: Soft, Non Tender, Non Distended and Normal Bowel Sounds
Skin: Warm and Dry
Neuro: Awake, Alert, Oriented and AO x 3
Psych: Calm
#Coffee-ground vomitus, resolved
EGD 2023 with evidence of short segment Pickard's esophagus. No bleeding ulcers found
Etiology likely due to gastritis versus peptic ulcer disease versus duodenal ulcers versus reflux esophagitis
Likely Scleroderma 'Flare' as per GI - they will see the patient if hgb drops further or cannot tolerate po regimen for GERD
Resume pantoprazole 40mg daily - will not bid as due to continued hypomagnesemia on it
Monitor CBC, follow-up in 5 to 7 days
Regular diet
-HgB stable
#Hypomagnesemia
Chronic
S/p magnesium repletion in the ER
resume standing po regimen
F/u mag outpt closely
#FLORENCE, improving
No history of CKD
Likely prerenal due to dehydration
Creatinine baseline 1
Today at 1.4
IV fluids
Check BMP
-Renal US, PVR - unremarkable for obstruction, hydro
-outlet obstruction or neurogenic bladder. - add flomax on dc
-f/u urology outpt
#Compression fracture of T7
Patient does not complain of any pain now
Will monitor for now
#Scleroderma
Can continue prucalopride, rifaximin
Metoclopramide as needed
#NIDDM
Will hold glimepiride
Will start basal bolus�low
Monitor blood sugars
#Hyperlipidemia
Continue atorvastatin
#CAD s/p stents
Continue atorvastatin
Continue aspirin
#Hypertension
Continue amlodipine
As needed labetalol IV
Diet�clears for now, advance as tolerated
DVT prophylaxis�SCDs
Full code
More than 30 minutes spent in discharge including
Final examination of the patient
Summarizing hospital stay
Instructions for continuing care to all relevant caregivers
Preparation of discharge records, prescriptions, and referral forms
Total time spent (in minutes): 37
Anticipated Discharge: Today
Subjective/Interval History
-
Date of Service: June 05, 2025
No acute events overnight, no coffee-ground emesis
Objective Data
-
Labs:
Laboratory Results
06/05/25
09:23
WBC 9.2
Hgb 11.2 L
Hct 33.6 L
Plt Count 226
Sodium 136
Potassium 3.8
Chloride 103
Carbon Dioxide 28
BUN 20
Creatinine 1.3
Glucose 212 H
Calcium 8.1 L
Vital Signs:
Vital Signs
Temp Pulse Resp BP Pulse Ox
97.9 F 69 18 127/83 100
06/05/25 07:00 06/05/25 07:00 06/05/25 07:00 06/05/25 07:00 06/05/25 07:00
I&O
06/04/25 06/05/25 06/06/25
06:59 06:59 06:59
Intake Total 1200 / 1200 1440 / 1440
Balance 1200 / 1200 1440 / 1440
Data Reviewed
-
CT Scan: Report Reviewed by me
Labs: Labs Reviewed by me
--- NOTE | 2025-06-05 13:08 | W.DS.TRANS ---
DC Summary - [employer] [employer]
-
Discharge Instructions:
Discharge Diagnosis/Procedures Coffee-ground vomitus
Scleroderma flare
Hypomagnesemia
Diet Regular
Activity As tolerated
Blood Work cbc and bmp, and magnesium in 5-7 days with pcp
Instructions:
Stand-Alone Forms:
Changes to Home Medications: Yes
Discharge Medications:
DC Medications w/original date entered in [facility]
aspirin 81 mg tablet,delayed release 81 mg PO HS Blood clot prevention/tx 06/28/20
atorvastatin 80 mg tablet 80 mg PO DAILY High cholesterol 06/28/20
pyridostigmine bromide 60 mg tablet 30 mg PO BID Neurological Condition 03/19/23
prucalopride 2 mg tablet (Motegrity) 2 mg PO HS Constipation 08/18/24
rifaximin 550 mg tablet 275 mg PO DAILY Gastrointestinal Issue 03/08/25
glimepiride 2 mg tablet 1 mg PO DAILY Diabetes 03/30/25
prednisone 5 mg tablet 5 mg PO DAILY Autoimmune Disorder 03/30/25
metoclopramide HCl 5 mg tablet (Reglan) 5 mg PO QIDPRN PRN nausea and vomiting #20 tabs 03/31/25
amlodipine 5 mg tablet (Norvasc) 5 mg PO DAILY Blood Pressure 06/02/25
famotidine 20 mg tablet (Pepcid) 20 mg PO DAILY Gastrointestinal Issue 06/02/25
amlodipine 2.5 mg PO HS 06/03/25
magnesium oxide 400 mg (241.3 mg magnesium) tablet 400 mg PO BID 30 days #60 tabs 06/05/25
pantoprazole 40 mg tablet,delayed release 40 mg PO DAILY 30 days #30 tabs 06/05/25
tamsulosin 0.4 mg capsule (Flomax) 0.4 mg PO DAILY #30 caps 06/05/25
Home Medication Changes
pantoprazole 40 mg tablet,delayed release 40 mg PO DAILY 30 days #30 tabs 06/05/25
tamsulosin 0.4 mg capsule (Flomax) 0.4 mg PO DAILY #30 caps 06/05/25
Pending Results: No
[2025-06-05 13:36] LABS: Magnesium 1.6 mg/dl (1.6-2.3)
== END 2025-06-05 14:02 | disposition home or self-care (01) | DRG 378 ==
LOC: 4 WEST ACU 16:46
PROVIDERS: Physician Assistant; Student in an Organized Health Care Education/Training Program; ADMITTING PHYSICIAN Hospitalist; ATTENDING PHYSICIAN Internal Medicine; EMERGENCY PHYSICIAN Emergency Medicine; FAMILY PHYSICIAN Family Medicine
DX: K92.0 Hematemesis (principal); M48.54XA Collapsed vertebra, not elsewhere classified, thoracic region, initial encounter for fracture; N17.9 Acute kidney failure, unspecified; E83.42 Hypomagnesemia; M34.9 Systemic sclerosis, unspecified; E11.43 Type 2 diabetes mellitus with diabetic autonomic (poly)neuropathy; Z79.84 Long term (current) use of oral hypoglycemic drugs; K31.84 Gastroparesis; Z95.5 Presence of coronary angioplasty implant and graft; I25.10 Atherosclerotic heart disease of native coronary artery without angina pectoris; I10 Essential (primary) hypertension; E86.0 Dehydration; Z79.52 Long term (current) use of systemic steroids; K29.71 Gastritis, unspecified, with bleeding
CPT/HCPCS: 74177; 76770; 80048; 80053; 82962; 83036; 83690; 83735; 84484; 85025; 85027; 93005; 96361; 96365; 96375; 99285; Q9967

== ENCOUNTER 2025-07-02 22:20 | Observation (INO) | payer MEDICARE, OTHER, SELFPAY ==
[2025-07-02] VITALS (9 sets, daily range): BP systolic 121–163; BP diastolic 63–85
--- NOTE | 2025-07-02 15:02 | ED.GENMED ---
History of Present Illness
General
Chief Complaint: Abdominal Symptoms
Time Seen by Provider: 07/02/25 14:41
Past History
Past History
ED Past Medical History: CAD, GERD, HTN, Hypercholesterolemia, NIDDM, HI and Other (scleroderma, SBO,, PNA, Pulmonary fibrosis, Gastroporesis)
ED Past Surgical History: Cardiac (Stents X 6) and Cholecystectomy
Social History
Tobacco: Non-smoker
Alcohol: None
Drug: None
Personal:
Living: with family
Employment: Retired
Family History
Family History: CAD
Course
Orders/Labs/Results
Orders:
Orders
07/02/25 13:32
EKG [Electrocardiogram (*1)] Urgent
Reason for Study: Vertigo / Dizzy
EKG- Treatment ONCE
Vital Signs
Initial and Last Documented VS:
Initial Vital Signs
Temp Pulse Resp BP Pulse Ox
99.2 F 118 16 150/85 98
07/02/25 13:29 07/02/25 13:29 07/02/25 13:29 07/02/25 13:29 07/02/25 13:29
Last Documented Vital Signs
Temp Pulse Resp BP Pulse Ox
99.2 F 118 16 150/85 98
07/02/25 13:29 07/02/25 13:29 07/02/25 13:29 07/02/25 13:29 07/02/25 13:29
*Pulse Oximetry
SaO2: 98
Oxygen Mode of Delivery: Room air
ED Attending Note
-
Portions of this chart may have been created with voice recognition software.� Occasional wrong word or��sound alike� substitutions may have occurred due to the inherent limitations of voice recognition software.
Discharge Plan
Departure
Prescriptions:
No Action
aspirin 81 MG tablet,delayed release (DR/EC)
81 mg PO HS
atorvastatin 80 MG tablet
80 mg PO DAILY
pyridostigmine bromide 60 mg tablet
30 mg PO BID
prucalopride [Motegrity] 2 mg tablet
2 mg PO HS
rifaximin 550 mg Tablet
275 mg PO DAILY
prednisone 5 mg tablet
5 mg PO DAILY
glimepiride 2 mg tablet
1 mg PO DAILY
metoclopramide HCl [Reglan] 5 mg tablet
5 mg PO QIDPRN PRN (Reason: nausea and vomiting) Qty: 20 0RF
amlodipine [Norvasc] 5 mg Tablet
5 mg PO DAILY
famotidine [Pepcid] 20 mg Tablet
20 mg PO DAILY
amlodipine tablet
2.5 mg PO HS
magnesium oxide 400 mg (241.3 mg magnesium) Tablet
400 mg PO BID 30 Days Qty: 60 0RF
pantoprazole 40 mg Tablet,Delayed Release (Dr/Ec)
40 mg PO DAILY 30 Days Qty: 30 0RF
tamsulosin [Flomax] 0.4 mg capsule
0.4 mg PO DAILY Qty: 30 0RF
Interventions
Interventions:
*Risk Screen - Suicide Last Done: 07/02/25 13:29
*Neglect/Abuse Screening Last Done: 07/02/25 13:29
Discharge Date and Time
Print Language: CROATIAN
[2025-07-02] MEDS: ZOFRAN 4 MG IV ×2 (15:22→21:35)
[2025-07-02 15:33] LABS: Hematocrit 41.6 % (39.0-52.0); Hemoglobin 13.7 g/dL (13.0-18.0); Mean Corp Hgb Conc. 32.9 g/dL (33.0-37.0); Mean Corpuscular Volume 94.3 fL (80.0-94.0); Nucleated Red Blood Cells % 0 % (-); Platelet Count 230 10^3/uL (130-400); Red Cell Dist. Width 15.3 % (11.5-14.5)
--- NOTE | 2025-07-02 15:37 | ED.GENMED ---
History of Present Illness
<Jag Munguia DO - Last Filed: 07/02/25 17:21>
General
Chief Complaint: Abdominal Symptoms
Time Seen by Provider: 07/02/25 14:41
<Leda Obregon PA-C - Last Filed: 07/02/25 23:26>
General
Source: patient
Exam Limitations: none
Nursing documentation reviewed up to this point in time: agreed with
History of Present Illness
History of Present Illness:
Patient is a 75-year-old male with past medical history of CAD status post 6 cardiac stents, gastroparesis, gastritis, small intestine bacterial overgrowth, colonic disability, scleroderma, esophageal dysmotility, recurrent hypomagnesemia, chronic
anemia, diabetes, hypertension, hyperlipidemia, who presents to the emergency department for evaluation of sudden onset of nausea, vomiting, and diarrhea that started around 1 AM this morning. Patient reports that he went to bed in his usual state
of health. Patient reports at least 8 episodes of nonbloody, nonbilious vomiting. Patient reports that he is now just retching. He also endorses multiple episodes of watery diarrhea. Patient denies any blood in the stool, denies any dark or
tarry stool. Patient denies any abdominal pain. Patient endorses chills and fatigue. Patient denies chest pain or shortness of breath. Patient denies any known sick contacts, denies any recent travel. Patient reports that he is on a chronic
antibiotic for his small intestine bacterial overgrowth but states that he has been on it for 5 years and denies any changes to the antibiotic. Patient denies taking any medication at home for his symptoms.
Past History
<Leda Obregon PA-C - Last Filed: 07/02/25 23:26>
Past History
ED Past Medical History: CAD, GERD, HTN, Hypercholesterolemia, NIDDM, NC and Other (scleroderma, SBO,, PNA, Pulmonary fibrosis, Gastroporesis)
ED Past Surgical History: Cardiac (Stents X 6) and Cholecystectomy
Social History
Tobacco: Non-smoker
Alcohol: None
Drug: None
Personal:
Living: with family
Employment: Retired
Family History
Family History: CAD
Review of Systems
<Leda Obregon PA-C - Last Filed: 07/02/25 23:26>
Review of Systems
Allergies reviewed?: Yes
All Other Systems: ROS reviewed and negative except as documented in HPI and ROS
Constitutional: Reports chills
EENT: Reports no symptoms
Respiratory: Reports no symptoms
Cardiac: Reports no symptoms
ABD/GI: Reports nausea, vomiting and diarrhea
: Reports no symptoms
Musculoskeletal: Reports no symptoms
Skin: Reports no symptoms
Neurological: Reports no symptoms
Endocrine: Reports no symptoms
Hematologic/Lymphatic: Reports no symptoms
Psychiatric: Reports no symptoms
Phy Exam
<Leda Obregon PA-C - Last Filed: 07/02/25 23:26>
General Physical Exam
General Presentation: well appearing and no apparent distress
General Skin: warm and dry
General Habitus: normal
General Mental: alert
General Hydration: dry mucous membranes
ENT Exam
ENT Exam: EOMI, pharynx normal, neck supple and normocephalic
Eye Exam
Eye Exam: PERRL, cornea clear and conjunctiva normal
Cardiovascular Exam
Cardiovascular Exam: regular rate/rhythm, no edema, no murmur and normal peripheral pulses
Pulmonary Exam
Pulmonary Exam: lungs clear, no respiratory distress, no rales, no crackles, no rhonchi, no stridor, no wheezing and no cough
Gastrointestinal Exam
Gastrointestinal Exam: normal bowel sounds, non tender, soft, no organomegaly, no pulsatile mass and non distended
Neurological Exam
Neurological Exam: alert, oriented x3, no motor deficits and speech normal
Musculoskeletal Exam
Musculoskeletal Exam: full ROM and no edema
Skin Exam
Skin Exam: normal color, warm/dry, no rash and no petechia
Psychiatric Exam
Psychiatric Exam: normal mood/affect
Course
<Jag Munguia, DO - Last Filed: 07/02/25 17:21>
Orders/Labs/Results
Orders:
Orders
07/02/25 13:32
EKG [Electrocardiogram (*1)] Urgent
Reason for Study: Vertigo / Dizzy
EKG- Treatment ONCE
07/02/25 15:02
Cardiac Monitoring- Treatment ONCE
IV Insert/Care/Rem.- Treatment PRN
Urinalysis Reflex To Culture Urgent
07/02/25 15:21
Ondansetron Injectable [Zofran] 4 mg .ROUTE .STK-MED ONE
Ondansetron Injectable [Zofran] 4 mg IV NOW STA
07/02/25 15:22
Complete Blood Count/With Diff Urgent
07/02/25 15:36
Add On- LAB Urgent
Tests Added?: magnesium
0.9% Sodium Chloride 1000 ml [Nss] 1,000 ml IV BOLUS
07/02/25 15:37
Acetaminophen [Tylenol] 975 mg PO NOW STA
07/02/25 16:00
Comprehensive Metabolic Panel Urgent
Magnesium Urgent
07/02/25 17:53
Magnesium Sulfate 1 grams 0.9% Sodium Chloride 100 ml [Nss] 100 ml IV NOW
07/02/25 21:28
Ondansetron Injectable [Zofran] 4 mg .ROUTE .STK-MED ONE
Ondansetron Injectable [Zofran] 4 mg IV NOW STA
07/02/25 22:01
Admit/Transfer Patient As Directed
Co-Sign Provider:
Level of Care: Observation services
Assign to:: Telemetry
Physician / Group: Briana
Diagnosis: diarrhea, presyncope
Reason for Telemetry: Syncope
Date to Stop Telemetry: 07/04/25
Time to Stop Telemetry: 11:00
PRN Pain Medication Management As Directed
May give lesser potent ordered pain med per pt: Yes
preference::
Protocol:: Medication orders for pain may be administered in a
manner that supports deferring to patient preference
when the pt is:
- Requesting an ordered lesser potent pain medication.
Least to most potent pain medications are defined
as: acetaminophen < NSAID < tramadol < opioids
(morphine, oxycodone, hydromorphone).
- Requesting a lesser dose of the same medication IF
ORDERED.
- Requesting a less intrusive route of administration
if both routes are prescribed by the provider (PO <
IV).
07/02/25 22:03
Code Status As Directed
Resuscitation Status: Full Code
07/02/25 22:09
C difficile Antigen & Toxins Urgent
SEBAS Source: Feces/Stool
Specimen Description:
Stool Culture Routine
SEBAS Source: Feces/Stool
Specimen Description:
Stool For WBC Routine
SEBAS Source: Feces/Stool
Specimen Description:
07/02/25 22:10
0.9% Sodium Chloride 500 ml [Nss] 500 ml IV BOLUS
Magnesium Sulfate 1 G/D5w [Magnesium Sulfate] 1 gm in 100 ml IV NOW
07/02/25 22:31
COVID-19 Antigen Stat
Source: Nasal Swab
Influenza A+B Rapid Molecular Stat
SEBAS Source: Nasal Swab
Specimen Description:
07/04/25 11:00
DC Protocol for Telemetry ONCE
Abnormal Lab Results
07/02/25 07/02/25
15:22 16:00
WBC 15.4 H 10^3/uL
(4.8-10.8)
RBC 4.41 L 10^6/uL
(4.70-6.10)
MCV 94.3 H fL
(80.0-94.0)
MCH 31.1 H pg
(27.0-31.0)
MCHC 32.9 L g/dL
(33.0-37.0)
RDW 15.3 H %
(11.5-14.5)
Abs Immat Gran (auto) 0.1 H 10^3/uL
(0-0.05)
Absolute Neuts (auto) 14.3 H 10^3/uL
(1.4-6.5)
Absolute Lymphs (auto) 0.3 L 10^3/uL
(1.2-3.4)
Immature Gran % 0.7 H %
(0-0.5)
Neutrophils % 93.0 H %
(42.2-75.2)
Lymphocytes % 2.1 L %
(20.5-51.1)
BUN 27 H mg/dl
(9-20)
Creatinine 1.4 H mg/dL
(0.7-1.3)
Glucose 160 H mg/dl
(70-99)
Magnesium 1.1 L mg/dl
(1.6-2.3)
07/02/25 15:22
07/02/25 16:00
Vital Signs
Initial and Last Documented VS:
Initial Vital Signs
Temp Pulse Resp BP Pulse Ox
99.2 F 118 16 150/85 98
07/02/25 13:29 07/02/25 13:29 07/02/25 13:29 07/02/25 13:29 07/02/25 13:29
Last Documented Vital Signs
Temp Pulse Resp BP Pulse Ox
99.2 F 95 15 137/74 94
07/02/25 13:29 07/02/25 20:59 07/02/25 20:59 07/02/25 21:00 07/02/25 20:30
<Leda Obregon PA-C - Last Filed: 07/02/25 23:26>
Orders/Labs/Results
Orders:
Orders
07/02/25 13:32
EKG [Electrocardiogram (*1)] Urgent
Reason for Study: Vertigo / Dizzy
EKG- Treatment ONCE
07/02/25 15:02
Cardiac Monitoring- Treatment ONCE
IV Insert/Care/Rem.- Treatment PRN
Urinalysis Reflex To Culture Urgent
07/02/25 15:21
Ondansetron Injectable [Zofran] 4 mg .ROUTE .STK-MED ONE
Ondansetron Injectable [Zofran] 4 mg IV NOW STA
07/02/25 15:22
Complete Blood Count/With Diff Urgent
07/02/25 15:36
Add On- LAB Urgent
Tests Added?: magnesium
0.9% Sodium Chloride 1000 ml [Nss] 1,000 ml IV BOLUS
07/02/25 15:37
Acetaminophen [Tylenol] 975 mg PO NOW STA
07/02/25 16:00
Comprehensive Metabolic Panel Urgent
Magnesium Urgent
07/02/25 17:53
Magnesium Sulfate 1 grams 0.9% Sodium Chloride 100 ml [Nss] 100 ml IV NOW
07/02/25 21:28
Ondansetron Injectable [Zofran] 4 mg .ROUTE .STK-MED ONE
Ondansetron Injectable [Zofran] 4 mg IV NOW STA
07/02/25 22:01
Admit/Transfer Patient As Directed
Co-Sign Provider:
Level of Care: Observation services
Assign to:: Telemetry
Physician / Group: Briana
Diagnosis: diarrhea, presyncope
Reason for Telemetry: Syncope
Date to Stop Telemetry: 07/04/25
Time to Stop Telemetry: 11:00
PRN Pain Medication Management As Directed
May give lesser potent ordered pain med per pt: Yes
preference::
Protocol:: Medication orders for pain may be administered in a
manner that supports deferring to patient preference
when the pt is:
- Requesting an ordered lesser potent pain medication.
Least to most potent pain medications are defined
as: acetaminophen < NSAID < tramadol < opioids
(morphine, oxycodone, hydromorphone).
- Requesting a lesser dose of the same medication IF
ORDERED.
- Requesting a less intrusive route of administration
if both routes are prescribed by the provider (PO <
IV).
07/02/25 22:03
Code Status As Directed
Resuscitation Status: Full Code
07/02/25 22:09
C difficile Antigen & Toxins Urgent
SEBAS Source: Feces/Stool
Specimen Description:
Stool Culture Routine
SEBAS Source: Feces/Stool
Specimen Description:
Stool For WBC Routine
SEBAS Source: Feces/Stool
Specimen Description:
07/02/25 22:10
0.9% Sodium Chloride 500 ml [Nss] 500 ml IV BOLUS
Magnesium Sulfate 1 G/D5w [Magnesium Sulfate] 1 gm in 100 ml IV NOW
07/02/25 22:31
COVID-19 Antigen Stat
Source: Nasal Swab
Influenza A+B Rapid Molecular Stat
SEBAS Source: Nasal Swab
Specimen Description:
07/04/25 11:00
DC Protocol for Telemetry ONCE
Abnormal Lab Results
07/02/25 07/02/25
15:22 16:00
WBC 15.4 H 10^3/uL
(4.8-10.8)
RBC 4.41 L 10^6/uL
(4.70-6.10)
MCV 94.3 H fL
(80.0-94.0)
MCH 31.1 H pg
(27.0-31.0)
MCHC 32.9 L g/dL
(33.0-37.0)
RDW 15.3 H %
(11.5-14.5)
Abs Immat Gran (auto) 0.1 H 10^3/uL
(0-0.05)
Absolute Neuts (auto) 14.3 H 10^3/uL
(1.4-6.5)
Absolute Lymphs (auto) 0.3 L 10^3/uL
(1.2-3.4)
Immature Gran % 0.7 H %
(0-0.5)
Neutrophils % 93.0 H %
(42.2-75.2)
Lymphocytes % 2.1 L %
(20.5-51.1)
BUN 27 H mg/dl
(9-20)
Creatinine 1.4 H mg/dL
(0.7-1.3)
Glucose 160 H mg/dl
(70-99)
Magnesium 1.1 L mg/dl
(1.6-2.3)
07/02/25 15:22
07/02/25 16:00
Vital Signs
Initial and Last Documented VS:
Initial Vital Signs
Temp Pulse Resp BP Pulse Ox
99.2 F 118 16 150/85 98
07/02/25 13:29 07/02/25 13:29 07/02/25 13:29 07/02/25 13:29 07/02/25 13:29
Last Documented Vital Signs
Temp Pulse Resp BP Pulse Ox
99.2 F 95 15 137/74 94
07/02/25 13:29 07/02/25 20:59 07/02/25 20:59 07/02/25 21:00 07/02/25 20:30
&;Leda Obregon PA-C - Last Filed: 07/02/25 23:26>
*Pulse Oximetry
SaO2: 96
Oxygen Mode of Delivery: Room air
Patient hypoxic: no
*Critical Care Note
Total Time (30-74mins, 75-104mins- exclusive of procedures): Not Applicable
<Leda Obregon PA-C - Last Filed: 07/02/25 23:26>
Update Note
Update Note:
Patient is a 75-year-old female who presents to the emergency department for evaluation of sudden onset of nausea, vomiting, and diarrhea that started overnight last night. Triage note indicates the patient has abdominal pain which she denies to
me. Patient does report 2 episodes of possible syncope overnight as well. On arrival, patient is moderately hypertensive, afebrile. On examination, the patient does feel warm therefore repeat temperature was obtained and is elevated at 100.5 �F.
Patient does appear dry but is in no acute distress with a benign abdomen. Labs were obtained and are notable for a leukocytosis to 15.4, patient's creatinine is 1.4 which is close to his baseline, patient is hypomagnesemic to 1.1 which the patient
reports he has been struggling with. Patient was given IV fluids, ondansetron, and supplemental magnesium with significant improvement in his symptoms. Patient able to tolerate p.o. I spoke with the patient about admission versus discharge.
Patient states that he would prefer to go home. He reports that he lives alone but his 2 sons live very close to him and can check on him regularly. Patient states that he does not want to be admitted because he does not want to be here for
several days. At this time, there is no indication for admission therefore we will discharge patient to home.
Patient's IV was removed and as he was standing up to get dressed, he started to feel the nausea returning and then also felt like he was going to syncopize. I was called into the patient's room to reevaluate him. Patient states that he does feel
that he should be admitted today. IV was replaced, additional dose of Zofran given, and patient was signed out to the hospitalist without complication.
ED Attending Note
<Jag Munguia DO - Last Filed: 07/02/25 17:21>
ED Attending Note
Patient seen and examined by attending physician: Yes
I performed the substantive portion of visit, reviewed & personally made and approve the management plan that is documented in note by myself or SHARRI.: Yes
ED Attending Note:
Seen with PA examined independently 75-year-old male scleroderma had reflux yesterday nausea vomiting diarrhea fatigue low-grade fever has chronic low magnesium gets IV supplementation after IV fluids and antiemetics states he feels better would
like to go home will replete his potassium, make sure he can tolerate p.o. fluids
<Leda Obregon PA-C - Last Filed: 07/02/25 23:26>
-
Portions of this chart may have been created with voice recognition software.� Occasional wrong word or��sound alike� substitutions may have occurred due to the inherent limitations of voice recognition software.
Discharge Plan
Departure
Patient Disposition: Admit
Date of Disposition: 07/02/25
Time of Disposition: 21:47
Presentation/result/management discussed w/ accepting MD/DO: Hospitalist
Patient with high blood pressure during this ER visit?: No
Condition: Good
Covid-19: Not Applicable
Discharge Problem:
Gastroenteritis, Hypomagnesemia
Interventions
Interventions:
*Risk Screen - Suicide Last Done: 07/02/25 13:29
*General Assessment Last Done: 07/02/25 15:32
*Neglect/Abuse Screening Last Done: 07/02/25 13:29
*ED COVID-19 Vaccine History Last Done: 07/02/25 15:32
*ED Influenza Vaccine History Last Done: 07/02/25 15:32
[facility] Risk Assessment Tool Last Done: 07/02/25 16:41
CK-Ugbtuu-Mctkqllkwq Assessment Last Done: 07/02/25 15:26
[2025-07-02] MEDS: TYLENOL 975 MG PO (15:56)
[2025-07-02] MEDS: NSS 1000 IV (15:57)
[2025-07-02 16:27] LABS: ALT (SGPT) 20 U/L (0-50); AST (SGOT) 21 U/L (17-59); Albumin 4.4 g/dl (3.5-5.0); Alkaline Phosphatase 67 U/L (38-126); Blood Urea Nitrogen 27 mg/dl (9-20); Calcium 8.9 mg/dl (8.4-10.2); Carbon Dioxide 27 mmol/L (22-30); Chloride 103 mmol/L (98-107); Glucose 160 mg/dl (70-99); Magnesium 1.1 mg/dl (1.6-2.3); Potassium 4.4 mmol/L (3.5-5.1); Sodium 137 mmol/L (135-145); Total Protein 6.9 g/dl (6.3-8.2); eGFR 52.74
[2025-07-02] MEDS: MAGNESIUM SULFATE 102 GRAMS IV (18:08)
--- NOTE | 2025-07-02 21:51 | HPS.HSE ---
Family Physician
-
Family Physician: Tamara Bell
Chief Complaint
-
Presyncope
History of Present Illness
This is a 75-year-old with past medical history significant for scleroderma, pulmonary hypertension, delayed gastric emptying, type 2 diabetes, hypertension, CAD status post stenting presents to the emergency department with nausea vomiting diarrhea.
Patient reported sudden onset of nausea vomiting and diarrhea without abdominal pain that started last night. He reported vomiting 7 times. He did report dark vomitus. He reported going to diarrhea over 8 times which caused simultaneously with
the vomit. He denies any melena. Reports no chills at home but low-grade temps on arrival in the emergency department stating need a max temp of 100.5. He lives alone and denies any knowledge of acute contact with ill individuals. He has not
taken any of his medications during the day. Also reports 2 episodes of syncope. After IV hydration in the emergency department patient stood up and wanted to walk home when he had a presyncopal episode in the setting of severe nausea.
Initially in the emergency department her vital signs were stable, blood pressure 137/74 with a pulse of 94 and max temperature of 99.2 satting 94% on room air. ECG showed sinus tachycardia at a rate of 114. Troponin was negative. LFTs were
normal. White count was 15.4 with normal hemoglobin and platelets. Electrolytes BUN/creatinine were normal.
Medical History
Past Medical History
Past Medical History: Reports Other (scleroderma, GERD, pulmonary fibrosis, CAD s/p stents, hypertension, hyperlipidemia, type II DM, intestinal pseudoobstruction's/dysmotility, gastroparesis )
Past Surgical History: Reports Cholecystectomy and Other (Cardiac stents)
Social History
Tobacco: Non-smoker
Alcohol: None
Drug: None
Personal:
Employment: Retired
Family History
Family History: Not pertinent
Allergies / Home Medications
Allergies reflects when Allergies were last updated in [facility].
Home Medications with original date entered in [facility]
Allergy/Medication List:
Allergies
Allergy/AdvReac Type Severity Reaction Status Date / Time
No Known Allergies Allergy Verified 06/02/25 07:39
Home Medications
aspirin 81 mg tablet,delayed release 81 mg PO HS Blood clot prevention/tx 06/28/20
atorvastatin 80 mg tablet 80 mg PO DAILY High cholesterol 06/28/20
pyridostigmine bromide 60 mg tablet 30 mg PO BID Neurological Condition 03/19/23
prucalopride 2 mg tablet (Motegrity) 2 mg PO HS Constipation 08/18/24
rifaximin 550 mg tablet 275 mg PO DAILY Gastrointestinal Issue 03/08/25
glimepiride 2 mg tablet 1 mg PO DAILY Diabetes 03/30/25
prednisone 5 mg tablet 5 mg PO DAILY Autoimmune Disorder 03/30/25
metoclopramide HCl 5 mg tablet (Reglan) 5 mg PO QIDPRN PRN nausea and vomiting #20 tabs 03/31/25
amlodipine 5 mg tablet (Norvasc) 2.5 mg PO DAILY Blood Pressure 06/02/25
famotidine 20 mg tablet (Pepcid) 20 mg PO DAILY Gastrointestinal Issue 06/02/25
Review of Systems
-
Constitutional: Reports No Symptoms
EENT: Reports No Symptoms
Respiratory: Reports No Symptoms
Cardiac: Reports No Symptoms
Abdomen/GI: Reports Nausea, Vomiting and Diarrhea
: Reports No Symptoms
Musculoskeletal: Reports No Symptoms
Skin: Reports No Symptoms
Neurological: Reports No Symptoms
Endocrine: Reports No Symptoms
Hematologic/Lymphatic: Reports No Symptoms
Psych: Reports No Symptoms
Physical Exam
Vital Signs
Vital Signs
Temp Pulse Resp BP Pulse Ox
99.2 F 95 15 137/74 94
07/02/25 13:29 07/02/25 20:59 07/02/25 20:59 07/02/25 21:00 07/02/25 20:30
Physical Exam
General: No Apparent Distress
HEENT: NormoCephalic and Atraumatic
Respiratory: Clear
Cardiac: S1/S2 and Regular Rhythm
GI: Soft, Non Tender, Non Distended and Normal Bowel Sounds
Rectal: Deferred by Provider
Genito-urinary: Deferred by me
Musculoskeletal: No Clubbing, No Cyanosis and No Edema
Skin: Warm and Dry
Neuro: AO x 3 and Nonfocal/grossly intact
Psych: Calm
Laboratory Results
-
07/02/25 15:22
07/02/25 16:00
Laboratory Results
Total Bilirubin 1.0 mg/dl (0.2-1.3) 07/02/25 16:00
AST 21 U/L (17-59) 07/02/25 16:00
ALT 20 U/L (0-50) 07/02/25 16:00
Alkaline Phosphatase 67 U/L (38-126) 07/02/25 16:00
Data Reviewed
-
Medical Tests (Nuc Med, Echo, EKG etc): Image Personally Visualized and interpreted
Lab Data: Labs Reviewed by me
Old Records: Reviewed
Impression/Plan
-
IMPRESSION:
75-year-old with past medical history significant for scleroderma, pulmonary hypertension, hypertension, hyperlipidemia, CAD status post stenting, GERD, type 2 diabetes presenting to the emergency department with episode of nausea vomiting and
diarrhea that started acutely about 1 year ago. Hemodynamically stable in the emergency department and afebrile. Does have leukocytosis otherwise labs are unremarkable. ECG shows sinus tachycardia initially. Given IV fluids and upon discharge
from ED he developed the nausea and then had a presyncopal episode.
PLAN:
Acute gastroenteritis -patient with nausea vomiting diarrhea, no abdominal pain, no fevers or chills, no recent antibiotics but was recently admitted for gastritis in May of this year. Abdominal exam is benign. No further diarrhea currently
in the ED but still nauseous.
� Admit to telemetry observation due to the presyncopal episode
� Continue IV fluids overnight
� Orthostatic vital signs daily
� Stool C. difficile, culture
� Diet as tolerated for now
- For his history of gastritis, continue PPI
- With low-grade cramps, will rule out acute viral infections with a flu or COVID that can lead to GI symptoms.
Presyncopal episode -could be vasovagal in the setting of nausea versus dehydration
� Admit to telemetry observation as above
� Check orthostatics
� Continue IV fluids
� Check echocardiogram
� Hold Norvasc
Scleroderma�
� Continue prednisone 5,
-Continue pyridostigmine
Renal dysfunction -patient's creatinine 1.4 similar to recent baseline ranging from 1-1.5.
� Continue tamsulosin for episode of retention during his last admission
� IV fluids
� Monitor renal function and avoid nephrotoxin
DM II
- sliding scale insulin
- continue glimepiride
DVT prophylaxis�heparin subcu
CODE STATUS�full code
[2025-07-02] MEDS: NSS 500 IV (22:32)
[2025-07-02 22:52] LABS: COVID-19 Antigen Negative (Negative)
[2025-07-03] MEDS: NSS 1000 IV ×2 (00:11→09:15)
[2025-07-03] MEDS: REGLAN 5 MG IV ×4 (01:01→22:06)
[2025-07-03] MEDS: HEPARIN 5000 UNITS SC ×3 (01:01→15:31)
[2025-07-03] MEDS: MAGNESIUM SULFATE 100 IV (01:03)
[2025-07-03 03:10] VITALS: BP 127/53
[2025-07-03 06:45] LABS: Hematocrit 33.8 % (39.0-52.0); Hemoglobin 11.5 g/dL (13.0-18.0); Mean Corp Hgb Conc. 34.0 g/dL (33.0-37.0); Mean Corpuscular Volume 93.4 fL (80.0-94.0); Platelet Count 206 10^3/uL (130-400); Red Cell Dist. Width 15.2 % (11.5-14.5)
[2025-07-03 07:00] VITALS: BP 133/77
[2025-07-03 07:06] LABS: Blood Urea Nitrogen 20 mg/dl (9-20); Calcium 7.9 mg/dl (8.4-10.2); Carbon Dioxide 23 mmol/L (22-30); Chloride 107 mmol/L (98-107); Estimated Creatinine Clearance 61 ml/min; Glucose 118 mg/dl (70-99); Magnesium 1.8 mg/dl (1.6-2.3); Potassium 3.9 mmol/L (3.5-5.1); Sodium 137 mmol/L (135-145); eGFR > 60.00
[2025-07-03] MEDS: PEPCID PO ×2 (08:32→08:56)
[2025-07-03] MEDS: LIPITOR PO ×2 (08:32→08:57)
[2025-07-03] MEDS: MESTINON PO ×4 (08:33→22:22)
[2025-07-03] MEDS: MAGNESIUM OXIDE PO ×2 (08:33→08:56)
[2025-07-03] MEDS: PROTONIX 40 MG PO (08:33)
[2025-07-03] MEDS: FLOMAX PO ×2 (08:34→08:56)
[2025-07-03] MEDS: DELTASONE PO ×2 (08:34→08:56)
[2025-07-03 08:54] LABS: Glucose - Point of Care 137 mg/dl (70-99)
[2025-07-03] MEDS: XIFAXAN PO (08:55)
[2025-07-03] MEDS: AMARYL PO (08:55)
[2025-07-03] MEDS: NOVOLOG FLEXPEN-LOW RESISTANCE SC ×3 (09:01→17:15)
--- NOTE | 2025-07-03 09:07 | PTCARENOTE ---
Pt refusing all AM meds other than protonix due to nausea, PRN reglan administered.
[2025-07-03 11:02] VITALS: BP 120/53
[2025-07-03 12:40] LABS: Urine Character Clear (Clear)
[2025-07-03 13:05] LABS: Glucose - Point of Care 93 mg/dl (70-99)
[2025-07-03 13:17] LABS: Urine Squamous Cell 0-2 /LPF (Few); Urine White Cell 0-2 /HPF (0-5)
[2025-07-03 15:51] VITALS: BP 130/67
[2025-07-03 16:03] VITALS: BMI 22.4
--- NOTE | 2025-07-03 16:05 | CM ---
Met w/ patient at bedside
LAZAR form explained; form signed
Pharmacy verified: [facility] @ [id number], [place]
Lives alone; multilevel home; no steps to enter 13 steps to 2nd floor bed and bath; bath has walk-in shower with seat and grab bar; half bath on 1st floor
PLOF: independent with ambulation, stairs, and ADLs; family lives nearby if he needs assistance
Family will transport home
No SNF or Home Health utilization history
Plan: Discharge to home; Case Management will monitor for needs
--- NOTE | 2025-07-03 16:36 | W.PN.HOSP.TC ---
Today's Communication/Plan
-
Assessment / Plan
Assessment / Plan
NAD, frail, cachetic
Scleral Anicteric
MMM
No JVD
CTABL
RRR, S1/S2
Soft, NT, ND, BS+
Warm, Dry
AAOx3
Calm
Acute gastroenteritis
Follow-up stool studies
IV fluids
Avoid IV antibiotics
PPI
Presyncopal episode
Orthostatics
IV fluid
2D echo
Hold Norvasc
Scleroderma
Continue prednisone
Continue Xifaxan
Continue pyridostigmine
Renal dysfunction
IV fluids
Diabetes type 2
Sliding scale
Glimepiride
Accu-Cheks
Goal blood glucose 140-180
Anticipated Discharge: > 48 hours
Subjective/Interval History
-
Date of Service: July 03, 2025
seen and examined. no new compaints. no acute ovenright events
Objective Data
-
Labs:
Laboratory Results
07/03/25
06:20
WBC 10.6
Hgb 11.5 L
Hct 33.8 L
Plt Count 206
Sodium 137
Potassium 3.9
Chloride 107
Carbon Dioxide 23
BUN 20
Creatinine 1.1
Glucose 118 H
Calcium 7.9 L
Vital Signs:
Vital Signs
Temp Pulse Resp BP Pulse Ox
99.4 F 89 14 130/67 97
07/03/25 15:51 07/03/25 15:51 07/03/25 15:51 07/03/25 15:51 07/03/25 15:51
[2025-07-03] MEDS: D5/0.9% SODIUM CHLORIDE 1000 IV (17:18)
[2025-07-03 17:57] LABS: Glucose - Point of Care 148 mg/dl (70-99)
[2025-07-03] MEDS: ZOFRAN 4 MG IV (18:00)
[2025-07-03 19:17] VITALS: BP 127/65
[2025-07-03] MEDS: ASPIR LOW (ENTERIC COATED) 81 MG PO (22:06)
[2025-07-03] MEDS: MAGNESIUM OXIDE 400 MG PO (22:06)
[2025-07-03 22:10] LABS: Glucose - Point of Care 156 mg/dl (70-99)
[2025-07-03 23:09] VITALS: BP 136/72
[2025-07-04] MEDS: HEPARIN 5000 UNITS SC ×2 (00:17→08:31)
[2025-07-04 03:18] VITALS: BP 118/58
[2025-07-04] MEDS: D5/0.9% SODIUM CHLORIDE 1000 IV (04:32)
[2025-07-04 05:21] VITALS: BMI 21.9
[2025-07-04 07:46] LABS: Glucose - Point of Care 160 mg/dl (70-99)
[2025-07-04 07:49] VITALS: BP 123/67
[2025-07-04 07:53] LABS: Hematocrit 32.4 % (39.0-52.0); Hemoglobin 10.7 g/dL (13.0-18.0); Mean Corp Hgb Conc. 33.0 g/dL (33.0-37.0); Mean Corpuscular Volume 92.3 fL (80.0-94.0); Red Cell Dist. Width 15.0 % (11.5-14.5)
[2025-07-04 07:58] LABS: Platelet Count 169 10^3/uL (130-400)
[2025-07-04 08:27] LABS: Blood Urea Nitrogen 14 mg/dl (9-20); Calcium 6.9 mg/dl (8.4-10.2); Carbon Dioxide 23 mmol/L (22-30); Chloride 109 mmol/L (98-107); Estimated Creatinine Clearance 59 ml/min; Glucose 137 mg/dl (70-99); Potassium 3.8 mmol/L (3.5-5.1); Sodium 136 mmol/L (135-145); eGFR > 60.00
[2025-07-04] MEDS: XIFAXAN 275 MG PO (08:29)
[2025-07-04] MEDS: PROTONIX 40 MG PO (08:29)
[2025-07-04] MEDS: LIPITOR 80 MG PO (08:29)
[2025-07-04] MEDS: MESTINON 30 MG PO (08:31)
[2025-07-04] MEDS: MAGNESIUM OXIDE 400 MG PO (08:31)
[2025-07-04] MEDS: AMARYL 1 MG PO (08:31)
[2025-07-04] MEDS: FLOMAX 0.4 MG PO (08:31)
[2025-07-04] MEDS: PEPCID 20 MG PO (08:31)
[2025-07-04] MEDS: DELTASONE 5 MG PO (08:31)
[2025-07-04] MEDS: NOVOLOG FLEXPEN-LOW RESISTANCE 1 UNITS SC (08:32)
[2025-07-04 09:16] LABS: Albumin 3.3 g/dl (3.5-5.0)
[2025-07-04] MEDS: CALCIUM GLUCONATE 100 IV (10:27)
[2025-07-04] MEDS: FLUSH (NSS) 2 FLUSH IV (10:27)
[2025-07-04 11:18] VITALS: BP 104/65; BP 126/70; BP 127/65; PULSE 97; PULSE 98
--- NOTE | 2025-07-04 11:56 | W.DCSUMMARY ---
Discharge Summary
Discharge Data
Date of Admission: 07/02/25
Date of Discharge: 07/04/25
-
Pending Results: No
Hospital Course
75-year-old with past medical history significant for scleroderma, pulmonary hypertension, delayed gastric emptying, type 2 diabetes, hypertension, CAD status post stenting
Presented with nausea vomiting and diarrhea. Was admitted for acute gastroenteritis. Started on supportive care with intravenous fluids and antiemetics. Symptoms improved and was able to tolerate an advanced diet.
CTAP
IMPRESSION: Findings of interstitial fibrosis within both lower lungs, with mild honeycombing.
Thickened wall of the mid to distal thoracic esophagus, most likely due to scleroderma.
The stomach is not distended, but there appears to be thickening of the wall of the upper to mid stomach, similar to previous CT. This finding is nonspecific, but statistically most commonly seen with gastritis.
Thickened wall of jejunal loops in the left upper quadrant, with slight crowding of the valvulae conniventes. Main differential considerations of enteritis versus findings which can be seen in association with scleroderma. There is no evidence for
bowel obstruction. There is no free intraperitoneal air.
Small calcifications within the pancreas, compatible with benign dystrophic calcifications, possibly from chronic pancreatitis. No CT findings to suggest acute pancreatitis.
Stable compression deformity of T12.
Subtle compression deformity involving the right superior aspect of T7 which is new since examination of February 2025. Please correlate with localized symptoms.
Renal bladder ultrasound
IMPRESSION:
1. Benign simple cyst of the left kidney. Otherwise unremarkable sonographic appearance of the kidneys.
2. Urinary bladder wall thickening and trabeculation suggesting outlet obstruction or neurogenic bladder. Minimal post void residual of 5 mL.
Seen and examined on the day of discharge which was 07/04. No new complaints. No acute overnight events
States feels betgter. Would like an advanced diet and then discharge home
NAD
Scleral Anicteric
MMM
No JVD
CTABL
RRR, S1/S2
Soft, NT, ND, BS+
Warm, Dry
AAOx3
Calm
More than 30 minutes spent in discharge including
Final examination of the patient
Summarizing hospital stay
Instructions for continuing care to all relevant caregivers
Preparation of discharge records, prescriptions, and referral forms
Total time spent (in minutes): 33mins
Discharge Plan
-
Patient Disposition: Home (Routine Discharge)
Discharge Diagnosis/Procedures: acute gastroenteritis
Activity Restrictions/Additional Instructions:
Presented with nausea vomiting and diarrhea. Was admitted for acute gastroenteritis. Started on supportive care with intravenous fluids and antiemetics. Symptoms improved and was able to tolerate an advanced diet.
CTAP
IMPRESSION: Findings of interstitial fibrosis within both lower lungs, with mild honeycombing.
Thickened wall of the mid to distal thoracic esophagus, most likely due to scleroderma.
The stomach is not distended, but there appears to be thickening of the wall of the upper to mid stomach, similar to previous CT. This finding is nonspecific, but statistically most commonly seen with gastritis.
Thickened wall of jejunal loops in the left upper quadrant, with slight crowding of the valvulae conniventes. Main differential considerations of enteritis versus findings which can be seen in association with scleroderma. There is no evidence for
bowel obstruction. There is no free intraperitoneal air.
Small calcifications within the pancreas, compatible with benign dystrophic calcifications, possibly from chronic pancreatitis. No CT findings to suggest acute pancreatitis.
Stable compression deformity of T12.
Subtle compression deformity involving the right superior aspect of T7 which is new since examination of February 2025. Please correlate with localized symptoms.
Renal bladder ultrasound
IMPRESSION:
1. Benign simple cyst of the left kidney. Otherwise unremarkable sonographic appearance of the kidneys.
2. Urinary bladder wall thickening and trabeculation suggesting outlet obstruction or neurogenic bladder. Minimal post void residual of 5 mL.
Referrals:
Tamara Bell MD [Family Provider, [facility]]
Prescriptions:
New
ondansetron 4 mg tablet,disintegrating
4 mg PO Q8H PRN (Reason: nausea and vomiting) 3 Days Qty: 5 0RF
Continued
aspirin 81 MG tablet,delayed release (DR/EC)
81 mg PO HS
atorvastatin 80 MG tablet
80 mg PO DAILY
pyridostigmine bromide 60 mg tablet
30 mg PO BID
prucalopride [Motegrity] 2 mg tablet
2 mg PO HS
rifaximin 550 mg Tablet
275 mg PO DAILY
prednisone 5 mg tablet
5 mg PO DAILY
glimepiride 2 mg tablet
1 mg PO DAILY
metoclopramide HCl [Reglan] 5 mg tablet
5 mg PO QIDPRN PRN (Reason: nausea and vomiting) Qty: 20 0RF
amlodipine [Norvasc] 5 mg Tablet
5 mg PO DAILY
famotidine [Pepcid] 20 mg Tablet
20 mg PO DAILY
amlodipine tablet
2.5 mg PO HS
magnesium oxide 400 mg (241.3 mg magnesium) Tablet
400 mg PO BID 30 Days Qty: 60 0RF
pantoprazole 40 mg Tablet,Delayed Release (Dr/Ec)
40 mg PO DAILY 30 Days Qty: 30 0RF
tamsulosin [Flomax] 0.4 mg capsule
0.4 mg PO DAILY Qty: 30 0RF
Discharge Orders:
Discharge Patient (As Directed); Ordered 07/04/25
Ordered By: Devyn Ashford
Discharge Date and Time
Print Language: PUERTO RICAN
[2025-07-04 12:12] LABS: Glucose - Point of Care 122 mg/dl (70-99)
[2025-07-04] MEDS: NOVOLOG FLEXPEN-LOW RESISTANCE SC (12:20)
[2025-07-04] MEDS: D5/0.9% SODIUM CHLORIDE IV (13:19)
== END 2025-07-04 14:42 | disposition home or self-care (01) ==
LOC: 2 NORTH 22:20
PROVIDERS: Nurse Practitioner; ADMITTING PHYSICIAN Internal Medicine; ATTENDING PHYSICIAN Hospitalist; EMERGENCY PHYSICIAN Emergency Medicine; FAMILY PHYSICIAN Family Medicine
DX: K52.9 Noninfective gastroenteritis and colitis, unspecified (principal); R10.9 Unspecified abdominal pain; I25.10 Atherosclerotic heart disease of native coronary artery without angina pectoris; K31.84 Gastroparesis; E11.43 Type 2 diabetes mellitus with diabetic autonomic (poly)neuropathy; E83.42 Hypomagnesemia; I10 Essential (primary) hypertension; M34.9 Systemic sclerosis, unspecified; R68.83 Chills (without fever); K21.9 Gastro-esophageal reflux disease without esophagitis; E78.00 Pure hypercholesterolemia, unspecified; R53.83 Other fatigue; J84.10 Pulmonary fibrosis, unspecified; R42 Dizziness and giddiness; R55 Syncope and collapse; R00.0 Tachycardia, unspecified; E11.29 Type 2 diabetes mellitus with other diabetic kidney complication; I08.3 Combined rheumatic disorders of mitral, aortic and tricuspid valves; R64 Cachexia; N28.1 Cyst of kidney, acquired; I70.0 Atherosclerosis of aorta; I27.20 Pulmonary hypertension, unspecified; N32.89 Other specified disorders of bladder; M48.54XA Collapsed vertebra, not elsewhere classified, thoracic region, initial encounter for fracture; I25.2 Old myocardial infarction; Z95.5 Presence of coronary angioplasty implant and graft; Z87.19 Personal history of other diseases of the digestive system; Z79.2 Long term (current) use of antibiotics; Z87.01 Personal history of pneumonia (recurrent); Z82.49 Family history of ischemic heart disease and other diseases of the circulatory system; Z90.49 Acquired absence of other specified parts of digestive tract; Z11.52 Encounter for screening for COVID-19; Z60.2 Problems related to living alone; Z79.52 Long term (current) use of systemic steroids; Z79.84 Long term (current) use of oral hypoglycemic drugs; Z79.82 Long term (current) use of aspirin
CPT/HCPCS: 80048; 80053; 81003; 81015; 82040; 82962; 83735; 85025; 85027; 87045; 87046; 87077; 87324; 87427; 87449; 87502; 87811; 89055; 93005; 93306; 96361; 96365; 96375; 96376; 99285; G0378

== ENCOUNTER 2025-07-15 03:09 | Inpatient (IN) | payer MEDICARE, OTHER, SELFPAY ==
[2025-07-14 15:51] VITALS: BP 132/98
[2025-07-14 16:49] LABS: Hematocrit 41.5 % (39.0-52.0); Hemoglobin 13.7 g/dL (13.0-18.0); Mean Corp Hgb Conc. 33.0 g/dL (33.0-37.0); Mean Corpuscular Volume 92.2 fL (80.0-94.0); Nucleated Red Blood Cells % 0 % (-); Platelet Count 449 10^3/uL (130-400); Red Cell Dist. Width 14.6 % (11.5-14.5)
[2025-07-14 17:04] LABS: ALT (SGPT) 22 U/L (0-50); AST (SGOT) 22 U/L (17-59); Albumin 4.7 g/dl (3.5-5.0); Alkaline Phosphatase 90 U/L (38-126); Blood Urea Nitrogen 34 mg/dl (9-20); Calcium 8.9 mg/dl (8.4-10.2); Carbon Dioxide 20 mmol/L (22-30); Chloride 109 mmol/L (98-107); Glucose 145 mg/dl (70-99); Potassium 4.6 mmol/L (3.5-5.1); Sodium 142 mmol/L (135-145); Total Protein 7.7 g/dl (6.3-8.2); eGFR 44.93
[2025-07-14 21:37] VITALS: BP 144/75
[2025-07-14 21:43] VITALS: BMI 21.4
[2025-07-14 22:00] VITALS: BP 141/82
--- NOTE | 2025-07-14 22:13 | ED.GENMED ---
History of Present Illness
<Benson Gordon MD, Resident - Last Filed: 07/15/25 00:32>
General
Chief Complaint: Abdominal Pain
Time Seen by Provider: 07/14/25 22:12
History of Present Illness
History of Present Illness:
75 yo M PMH scleroderma, pulmonary HTN, delayed gastric emptying, T2DM, HTN p/w abdominal pain in epigastric region since yesterday night.
It is of acute onset, no clear trigger associated with vomiting yellow-white saliva, also assocaited with diarrhea.
pain is nonradiating
he also endorses heartburn
he reports no appetites, no clear aggravating/alleviating symptoms
denies feverish endorses chills
no sick contacts, no changes to diet, no recent travel
denies dyspnea. denies headache. denies hematochezia.
He had hematemesis in may 2025, and was admitted for gastroenteritis in in 06/2025, 2 weeks prior with similar symptoms and was treated for gastroenteritis.
Past History
<Benson Gordon MD, Resident - Last Filed: 07/15/25 00:32>
Past History
ED Past Medical History: CAD, GERD, HTN, Hypercholesterolemia, NIDDM, [place] and Other (scleroderma, SBO,, PNA, Pulmonary fibrosis, Gastroporesis)
ED Past Surgical History: Cardiac (Stents X 6) and Cholecystectomy
Social History
Tobacco: Non-smoker
Alcohol: None
Drug: None
Personal:
Living: with family
Employment: Retired
Family History
Family History: CAD
Review of Systems
<Benson Gordon MD, Resident - Last Filed: 07/15/25 00:32>
Review of Systems
Constitutional: Reports chills
EENT: Reports no symptoms
Respiratory: Reports no symptoms
Cardiac: Reports no symptoms
ABD/GI: Reports nausea, vomiting and diarrhea
: Reports no symptoms
Musculoskeletal: Reports no symptoms
Neurological: Reports no symptoms
Phy Exam
<Benson Gordon MD, Resident - Last Filed: 07/15/25 00:32>
Physical Exam
Physical Exam:
VS 140/80s; HR 90s, afebrile
General: dry mucous membranes
CV: systolic murmur on my exam
Pulm: CTAB
GI: focal tenderness in epigastric region, + bowel sounds
MSK: no lower extremity edema
Neuro: AOx3, nonfocal
Course
<Benson Gordon MD, Resident - Last Filed: 07/15/25 00:32>
Orders/Labs/Results
Orders:
Orders
07/14/25 15:54
Electrocardiogram (*1) Urgent
Reason for Study: Abdominal Pain
07/14/25 15:55
EKG- Treatment ONCE
07/14/25 16:31
CMP [Comprehensive Metabolic Panel] Urgent
Complete Blood Count/With Diff Urgent
07/14/25 22:41
0.9% Sodium Chloride 500 ml [Nss] 500 ml IV BOLUS
Ondansetron Injectable [Zofran] 4 mg IV NOW STA
07/14/25 23:01
Abdomen/Pelvis wo Contrast CT [CT Abd/pelvis Wo Iv Cont] Urgent
Comment:
Reason For Exam: abdominal pain
07/14/25 23:09
Lactate Level [Lactic Acid] Urgent
Lipase Urgent
Magnesium Urgent
07/14/25 23:27
Urinalysis Reflex To Culture Routine
07/14/25 23:28
Pantoprazole [Protonix IV] 40 mg IV NOW ONE
07/14/25 23:31
Acetaminophen 1000MG/100Ml [Ofirmev] 1,000 mg in 100 ml IV ONCE
Acetaminophen IV Indication:: ED Narcotic Naive Pt-ONCE
07/14/25 23:32
0.9% Sodium Chloride 1000 ml [Nss] 1,000 ml IV BOLUS
07/14/25 23:34
Blood Culture Routine
SEBAS Source: Blood/Venous
Specimen Description:
Stool Culture Routine
SEBAS Source: Feces/Stool
Specimen Description:
07/14/25 23:53
Magnesium Sulfate 2 Gram/50 ml [Magnesium Sulfate] 2 gram in 50 ml IV NOW
Abnormal Lab Results
07/14/25 07/14/25
16:31 23:09
WBC 17.0 H 10^3/uL
(4.8-10.8)
RBC 4.50 L 10^6/uL
(4.70-6.10)
RDW 14.6 H %
(11.5-14.5)
Plt Count 449 H 10^3/uL
(130-400)
Abs Immat Gran (auto) 0.1 H 10^3/uL
(0-0.05)
Absolute Neuts (auto) 13.9 H 10^3/uL
(1.4-6.5)
Absolute Lymphs (auto) 1.1 L 10^3/uL
(1.2-3.4)
Absolute Monos (auto) 1.6 H 10^3/uL
(0.1-0.6)
Immature Gran % 0.8 H %
(0-0.5)
Neutrophils % 82.1 H %
(42.2-75.2)
Lymphocytes % 6.5 L %
(20.5-51.1)
Monocytes % 9.5 H %
(1.7-9.3)
Chloride 109 H mmol/L
(98-107)
Carbon Dioxide 20 L mmol/L
(22-30)
BUN 34 H mg/dl
(9-20)
Creatinine 1.6 H mg/dL
(0.7-1.3)
Glucose 145 H mg/dl
(70-99)
Magnesium 1.5 L mg/dl
(1.6-2.3)
07/14/25 16:31
07/14/25 16:31
Vital Signs
Initial and Last Documented VS:
Initial Vital Signs
Temp Pulse Resp BP Pulse Ox
98.5 F 115 21 132/98 98
07/14/25 15:51 07/14/25 15:51 07/14/25 15:51 07/14/25 15:51 07/14/25 15:51
Last Documented Vital Signs
Temp Pulse Resp BP Pulse Ox
98.5 F 100 19 141/75 96
07/14/25 15:51 07/14/25 23:00 07/14/25 23:00 07/14/25 23:00 07/14/25 23:00
<Emerald Vasquez MD - Last Filed: 07/15/25 01:23>
Orders/Labs/Results
Orders:
Orders
07/14/25 15:54
Electrocardiogram (*1) Urgent
Reason for Study: Abdominal Pain
07/14/25 15:55
EKG- Treatment ONCE
07/14/25 16:31
CMP [Comprehensive Metabolic Panel] Urgent
Complete Blood Count/With Diff Urgent
07/14/25 22:41
0.9% Sodium Chloride 500 ml [Nss] 500 ml IV BOLUS
Ondansetron Injectable [Zofran] 4 mg IV NOW STA
07/14/25 23:01
Abdomen/Pelvis wo Contrast CT [CT Abd/pelvis Wo Iv Cont] Urgent
Comment:
Reason For Exam: abdominal pain
07/14/25 23:09
Lactate Level [Lactic Acid] Urgent
Lipase Urgent
Magnesium Urgent
07/14/25 23:27
Urinalysis Reflex To Culture Routine
07/14/25 23:28
Pantoprazole [Protonix IV] 40 mg IV NOW ONE
07/14/25 23:31
Acetaminophen 1000MG/100Ml [Ofirmev] 1,000 mg in 100 ml IV ONCE
Acetaminophen IV Indication:: ED Narcotic Naive Pt-ONCE
07/14/25 23:32
0.9% Sodium Chloride 1000 ml [Nss] 1,000 ml IV BOLUS
07/14/25 23:34
Blood Culture Routine
SEBAS Source: Blood/Venous
Specimen Description:
Stool Culture Routine
SEBAS Source: Feces/Stool
Specimen Description:
07/14/25 23:53
Magnesium Sulfate 2 Gram/50 ml [Magnesium Sulfate] 2 gram in 50 ml IV NOW
Abnormal Lab Results
07/14/25 07/14/25
16:31 23:09
WBC 17.0 H 10^3/uL
(4.8-10.8)
RBC 4.50 L 10^6/uL
(4.70-6.10)
RDW 14.6 H %
(11.5-14.5)
Plt Count 449 H 10^3/uL
(130-400)
Abs Immat Gran (auto) 0.1 H 10^3/uL
(0-0.05)
Absolute Neuts (auto) 13.9 H 10^3/uL
(1.4-6.5)
Absolute Lymphs (auto) 1.1 L 10^3/uL
(1.2-3.4)
Absolute Monos (auto) 1.6 H 10^3/uL
(0.1-0.6)
Immature Gran % 0.8 H %
(0-0.5)
Neutrophils % 82.1 H %
(42.2-75.2)
Lymphocytes % 6.5 L %
(20.5-51.1)
Monocytes % 9.5 H %
(1.7-9.3)
Chloride 109 H mmol/L
(98-107)
Carbon Dioxide 20 L mmol/L
(22-30)
BUN 34 H mg/dl
(9-20)
Creatinine 1.6 H mg/dL
(0.7-1.3)
Glucose 145 H mg/dl
(70-99)
Magnesium 1.5 L mg/dl
(1.6-2.3)
07/14/25 16:31
07/14/25 16:31
Vital Signs
Initial and Last Documented VS:
Initial Vital Signs
Temp Pulse Resp BP Pulse Ox
98.5 F 115 21 132/98 98
07/14/25 15:51 07/14/25 15:51 07/14/25 15:51 07/14/25 15:51 07/14/25 15:51
Last Documented Vital Signs
Temp Pulse Resp BP Pulse Ox
98.5 F 100 19 141/75 96
07/14/25 15:51 07/14/25 23:00 07/14/25 23:00 07/14/25 23:00 07/14/25 23:00
<Benson Gordon MD, Resident - Last Filed: 07/15/25 00:32>
MDM/Problems Addressed
Differential Diagnosis Includes:
gastroenteritis, gastroparesis, pancreatitis, scleroderma flare, peptic ulcer disease, GERD, ACS
MDM/Problems Addressed:
WBC leukocytosis
Hgb 13.7 stable
LFTs within nomral limits
Cr 1.6 (baseline appears 1.1)
EKG sinus tachycardia
most likely infectious etiology and dehydration. leukocytosis could be reactive. will workup infectioin
he was admitted for very similar symptoms 2 weeks ago for gastroenteritis.
Tentative plan:
IV NS 500 + 1000 cc bolus
IV ondansetron
IV pantoprazole
- lactate
- lipase
- magnesium (he reports that he was receiving IV mag infusions weekly)
Ordered CT a/p without IV contrast (due to FLORENCE)
- blood cultures
- stool cultures
- UA
- pain control with IV tylenol
<Benson Gordon MD, Resident - Last Filed: 07/15/25 00:32>
*Pulse Oximetry
SaO2: 99
Oxygen Mode of Delivery: Room air
Patient hypoxic: no
*Critical Care Note
Total Time (30-74mins, 75-104mins- exclusive of procedures): Not Applicable
<Benson Gordon MD, Resident - Last Filed: 07/15/25 00:32>
Update Note
Update Note:
Lactate 1.0
Lipase 83
Mg 1.5
repleted with IV magnesium 2g
CT Abdomen pelvis, Impression from prelim [facility] report:
- 'moderate air fluid distension throughout the small bowel to the level of distal ileum. This may be due to enteritis or ilues. Fecalization of small bowel loop left mid abdomen without transition in caliber at the bowel suggesting more focal
inflammation. The fecalization of contents suggests slow transit in this region.
- Colonic diverticulosis, small amount of free fluid
- no free air
- normal appendix
- cholecystectomy
- scattered calcifications throughout pancreas consistentw ith chronic pancreatitis changes
- left renal cyst
- atherosclerosis and coronary artery calcification
- mild atelectasis and subpleural reticulation of imaged lung bases
- small bilateral fat containing inguinal hernias
- degenerative changes spine
- old compression fracture T12'
dispo: plan to admit for gastroenteritis and/or ileus.
ED Attending Note
<Benson Gordon MD, Resident - Last Filed: 07/15/25 00:32>
-
Portions of this chart may have been created with voice recognition software.� Occasional wrong word or��sound alike� substitutions may have occurred due to the inherent limitations of voice recognition software.
<Emerald Vasquez MD - Last Filed: 07/15/25 01:23>
ED Attending Note
Patient seen and examined by attending physician: Yes
I performed a history and physical exam of patient and discussed management with resident, I reviewed resident's note and agree with documented findings and plan of care.: Yes
ED Attending Note:
I have seen and evaluated the patient with a [id number] encounter. I have spoken to the [resident] and involved in the medical history, the physical exam, medical decision making.
Evaluation and management service: agree unless noted differently below.
Results interpretation: agree unless noted differently below.
75-year-old man with history of scleroderma, gastroparesis, CAD presenting to the emergency department with nausea vomiting abdominal pain diarrhea. States it is very similar to his prior gastroenteritis flares. He attributes it to his
scleroderma. No recent travel or antibiotics. No fevers or chills. My evaluation patient is resting comfortably. He does have dry oral mucosa. He does have tenderness to his epigastric region. No rebound or guarding. Concern for
gastroenteritis flare versus pancreatitis versus cholecystitis. Blood work obtained prior to evaluation does show leukocytosis. Patient is afebrile. Will send cultures and a lactate. Will hold off on antibiotics. Will obtain CT scan.
Anticipate admission.
Discharge Plan
Departure
Patient Disposition: Admit
Date of Disposition: 07/15/25
Time of Disposition: 00:30
Admit to: Med/Surg
Presentation/result/management discussed w/ accepting MD/DO: Hospitalist
Condition: Fair
Discharge Problem:
Gastroenteritis
Prescriptions:
No Action
aspirin 81 MG tablet,delayed release (DR/EC)
81 mg PO HS
atorvastatin 80 MG tablet
80 mg PO DAILY
pyridostigmine bromide 60 mg tablet
30 mg PO BID
prucalopride [Motegrity] 2 mg tablet
2 mg PO HS
rifaximin 550 mg Tablet
275 mg PO DAILY
prednisone 5 mg tablet
5 mg PO DAILY
glimepiride 2 mg tablet
1 mg PO DAILY
metoclopramide HCl [Reglan] 5 mg tablet
5 mg PO QIDPRN PRN (Reason: nausea and vomiting) Qty: 20 0RF
amlodipine [Norvasc] 5 mg Tablet
5 mg PO DAILY
famotidine [Pepcid] 20 mg Tablet
20 mg PO DAILY
amlodipine tablet
2.5 mg PO HS
magnesium oxide 400 mg (241.3 mg magnesium) Tablet
400 mg PO BID 30 Days Qty: 60 0RF
pantoprazole 40 mg Tablet,Delayed Release (Dr/Ec)
40 mg PO DAILY 30 Days Qty: 30 0RF
tamsulosin [Flomax] 0.4 mg capsule
0.4 mg PO DAILY Qty: 30 0RF
ondansetron 4 mg tablet,disintegrating
4 mg PO Q8H PRN (Reason: nausea and vomiting) 3 Days Qty: 5 0RF
Referrals:
Tamara Bell MD [Family Provider, Family Practice]
Interventions
Interventions:
*General Assessment Last Done: 07/14/25 15:51
*Neglect/Abuse Screening Last Done: 07/14/25 15:51
*ED COVID-19 Vaccine History Last Done: 07/14/25 21:51
*ED Influenza Vaccine History Last Done: 07/14/25 21:51
[facility] Risk Assessment Tool Last Done: 07/14/25 21:19
*Risk Screen - Suicide (C-SSRS) Last Done: 07/14/25 15:51
HK-Dohuuy-Kviucywynd Assessment Last Done: 07/14/25 21:51
Discharge Date and Time
Print Language: MALTESE
[2025-07-14 23:00] VITALS: BP 141/75
[2025-07-14] MEDS: ZOFRAN 4 MG IV (23:07)
[2025-07-14 23:23] VITALS: BP 142/88
[2025-07-14] MEDS: NSS 500 IV (23:30)
[2025-07-14 23:42] LABS: Lipase 83 U/L (23-300); Magnesium 1.5 mg/dl (1.6-2.3)
[2025-07-15] VITALS (10 sets, daily range): BP systolic 131–155; BP diastolic 57–85; BMI 21.8
[2025-07-15] MEDS: PROTONIX IV 40 MG IV (00:01)
[2025-07-15] MEDS: OFIRMEV 100 IV (00:02)
[2025-07-15] MEDS: MAGNESIUM SULFATE 50 IV (00:30)
[2025-07-15] MEDS: NSS 1000 IV ×3 (00:31→15:35)
--- NOTE | 2025-07-15 03:07 | HPS.HSE ---
Family Physician
-
Family Physician: Tamara Bell
Chief Complaint
-
Abd Pain, N/V
History of Present Illness
Patient is a 75y M with PMH significant for scleroderma / systemic sclerosis, ASCVD and SIBO who presents to ED complaining of N/V and abdominal discomfort. Patient has had multiple recent admissions for similar symptoms. He has a long history
of severe scleroderma with GI involvement and dysmotility. He has been followed at [facility] by Dr. Elder whom he last saw about 3 weeks ago. No changes were made to his management at that time. Patient was last admitted here for similar
symptoms 07/02 - 07/04. He states that he felt well for about 4-5 days and has now had recurrent abdominal pain with N/V for the past 4-5 days. He notes pain in the epigastric region with multiple episodes of non-bloody emesis. No current diarrhea.
No bloody or black stools. No fevers or chills.
Medical History
Past Medical History
Past Medical History: Reports Other
Additional Past Medical History:
SIBO / CIPO
ASCVD
GERD
Hypertension
DM-II
Scleroderma
GI Dysmotility
Pulmonary Fibrosis
Vitamin D deficiency
Past Surgical History: Reports Other
Additional Past Surgical History:
Cardiac stent x6
Cholecystectomy
Social History
Unable to obtain full social history at this time due to: Dementia
Tobacco: Non-smoker
Alcohol: None
Drug: None
Personal:
Employment: Retired
Family History
Family History: Not pertinent
Allergies / Home Medications
Allergies reflects when Allergies were last updated in [employer].
Home Medications with original date entered in [employer]
Allergy/Medication List:
Allergies
Allergy/AdvReac Type Severity Reaction Status Date / Time
No Known Allergies Allergy Verified 06/02/25 07:39
Home Medications
aspirin 81 mg tablet,delayed release 81 mg PO HS Blood clot prevention/tx 06/28/20
atorvastatin 80 mg tablet 80 mg PO DAILY High cholesterol 06/28/20
pyridostigmine bromide 60 mg tablet 30 mg PO BID Neurological Condition 03/19/23
prucalopride 2 mg tablet (Motegrity) 2 mg PO HS Constipation 08/18/24
rifaximin 550 mg tablet 275 mg PO DAILY Gastrointestinal Issue 03/08/25
glimepiride 2 mg tablet 1 mg PO DAILY Diabetes 03/30/25
prednisone 5 mg tablet 5 mg PO DAILY Autoimmune Disorder 03/30/25
metoclopramide HCl 5 mg tablet (Reglan) 5 mg PO QIDPRN PRN nausea and vomiting #20 tabs 03/31/25
amlodipine 5 mg tablet (Norvasc) 5 mg PO DAILY Blood Pressure 06/02/25
famotidine 20 mg tablet (Pepcid) 20 mg PO DAILY Gastrointestinal Issue 06/02/25
amlodipine 2.5 mg PO HS Blood Pressure 06/03/25
magnesium oxide 400 mg (241.3 mg magnesium) tablet 400 mg PO BID 30 days #60 tabs 06/05/25
pantoprazole 40 mg tablet,delayed release 40 mg PO DAILY 30 days #30 tabs 06/05/25
ondansetron 4 mg disintegrating tablet 4 mg PO Q8H PRN nausea and vomiting 3 days #5 tabs 07/02/25
Review of Systems
-
History Source: Patient
A 12 point ROS was completed and negative except as noted: Yes
Constitutional: Reports Fatigue; Denies Fever or Chills
Respiratory: Denies Cough or Trouble Breathing
Cardiac: Reports Other (Lightheaded - no syncope.); Denies Chest Pain or Palpitations
Abdomen/GI: Reports Abdominal Pain, Nausea and Vomiting; Denies Diarrhea, Bloody Stools or Black Stools
: Denies Dysuria or Frequency
Musculoskeletal: Denies Joint Pain or Edema
Neurological: Denies Dizzy or Headache
Psych: Reports Depression; Denies Anxiety
Physical Exam
Vital Signs
Vital Signs
Temp Pulse Resp BP Pulse Ox
98.5 F 90 23 131/67 97
07/14/25 15:51 07/15/25 01:45 07/15/25 01:45 07/15/25 01:00 07/15/25 01:45
Physical Exam
General: Other (Frail 75y M in mild distress due to nausea / abdominal discomfort.)
HEENT: Other (Dry MM. Neck supple.)
Respiratory: Clear; No Wheezes, Rales or Rhonchi
Cardiac: S1/S2 and Regular Rhythm; No Murmur
GI: Soft and Other (Mild epigastric tenderness without rebound / guarding. Pos bowel sounds. )
Musculoskeletal: No Cyanosis, No Edema and Other (Pos sclerodactyly.)
Neuro: AO x 3
Laboratory Results
-
07/14/25 16:31
07/14/25 16:31
Laboratory Results
Lactic Acid 1.0 mmol/L (0.7-2.0) 07/14/25 23:09
Total Bilirubin 1.0 mg/dl (0.2-1.3) 07/14/25 16:31
AST 22 U/L (17-59) 07/14/25 16:31
ALT 22 U/L (0-50) 07/14/25 16:31
Alkaline Phosphatase 90 U/L (38-126) 07/14/25 16:31
Lipase 83 U/L (23-300) 07/14/25 23:09
Impression/Plan
-
A/P: Patient is a 75y M with PMH significant for scleroderma, gastroparesis, GI dysmotility and SIBO who presents to ED complaining of abdominal pain with N/V.
Abdominal Pain
N/V
- Admit for further evaluation and treatment.
- GI re-evaluation for additional recommendations.
- Continue pyridostigmine for now.
- Increase Xifaxan to BID dosing (currently takes daily)
- Supportive care with IVFs, pain control, antiemetics, etc.
- Start Remeron dose daily per prior GI considerations.
- Observe off of abx.
- Follow for clinical improvement.
Hypomagnesemia
- Likely combination of poor oral intake, GI losses and acid suppression therapy.
- Patient states that he has been receiving [employer] riders as an outpatient for the past few weeks.
- Hold PPI for now. Follow for changes in lytes / diarrhea / etc.
- Replace Mg IV and follow-up repeat labs.
Scleroderma
- Systemic manifestations. Continue current low-dose prednisone.
ASCVD
- Stable. Continue ASA, statin, etc.
Benign Hypertension
- Stable. Continue home meds with holding parameters.
DM-II
- Stable. Hold PO hypoglycemic agents.
- Follow glucose and cover with SSI as needed.
DVT Prophylaxis: SCDs
Code Status: Full
[2025-07-15] MEDS: REGLAN 5 MG IV ×3 (04:02→21:00)
[2025-07-15 06:17] LABS: Hematocrit 37.2 % (39.0-52.0); Hemoglobin 12.2 g/dL (13.0-18.0); Mean Corp Hgb Conc. 32.8 g/dL (33.0-37.0); Mean Corpuscular Volume 94.2 fL (80.0-94.0); Platelet Count 366 10^3/uL (130-400); Red Cell Dist. Width 14.6 % (11.5-14.5)
[2025-07-15 06:24] LABS: Blood Urea Nitrogen 28 mg/dl (9-20); Calcium 7.7 mg/dl (8.4-10.2); Carbon Dioxide 18 mmol/L (22-30); Chloride 115 mmol/L (98-107); Estimated Creatinine Clearance 53 ml/min; Glucose 126 mg/dl (70-99); Magnesium 2.1 mg/dl (1.6-2.3); Potassium 4.5 mmol/L (3.5-5.1); Sodium 142 mmol/L (135-145); eGFR > 60.00
[2025-07-15 06:30] LABS: Urine Character Clear (Clear)
[2025-07-15 06:58] LABS: Urine Red Blood Cell 0-2 /HPF (0-2)
[2025-07-15 08:42] LABS: Glycohemoglobin (HgbA1c) 6.0 % (4.0-5.9)
[2025-07-15] MEDS: NORVASC 5 MG PO (09:17)
[2025-07-15] MEDS: LIPITOR 80 MG PO (09:17)
[2025-07-15] MEDS: MESTINON 30 MG PO ×2 (09:18→21:38)
[2025-07-15] MEDS: PEPCID 20 MG PO (09:18)
[2025-07-15] MEDS: DELTASONE 5 MG PO (09:18)
[2025-07-15] MEDS: XIFAXAN 275 MG PO ×2 (09:19→21:37)
--- NOTE | 2025-07-15 10:09 | CON.GI ---
Addendum entered and electronically signed by Dimitri Esparza MD 07/15/25 12:51:
I saw and evaluated the patient. I reviewed the resident�s note and agree with findings and plan as documented in the resident�s note.
75yo male hx scleroderma, chronic intestinal pseudoobstruction, SIBO presents with 4 days n/v/d. He reports mutiple recent trips to the hospital for intermittent symptoms. He follows with Dr Jacome at [place]. His attacks were much worse with
significant abd distention requiring NGT in the past. This has improved recently with current regimen of 1/2 tab xifaxan BID, motegrity, mestinon. He reports crampy abd pain. CT shows dilatation and mild/moderate wall thickening jejunal SB loops
LUQ and small pancreatic calcifications. He reports occasional fatty stools.
REC:
Check stool c diff given his acute diarrhea
If this is a flare up of his SIBO/CIPO symptoms, perhaps increasing his xifaxan dose may help, or perhaps he has developed refractory sx to xifaxan
Check fecal fat after he resumes a normal diet, can be done OP. He may benefit for PERT
Cont supportive care. OK for IV reglan that he is currently on, but would stop it once his n/v resolves and only use prn
I told pt to f/u with me in the office as well as Dr Jacome at [place]. He has been frustrated by his recurrent recent admissions to the hospital
Original Note:
Consultation
-
Date/Time Consultation Requested: 07/15/2025, 3:18 AM
Date/Time Consultation Performed: 07/15/25, 10:13am
Requesting Provider: Melvin Padilla DO
Performing Provider: Kate Blair MD for Dimitri Esparza MD
Reason for Consultation: Dysmotility, Scleroderma
Medical History
Chief Complaint / HPI
Chief Complaint: Dysmotility/scleroderma.
History of Present Illness:
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
Patient reports that his symptoms started with acute epigastric abdominal pain and distention in the night after dinner, and he had multiple episodes of vomiting and diarrhea. His vomitus is nonbilious, nonbloody. His diarrhea is [place] stool
scale 7, greater than 6 episodes, no black or maroon-colored stools. He also states to have noticed abdominal distention with skin discoloration in the left lower quadrant. His abdominal distention is much better than his previous admissions, and
his skin discoloration is completely new. Patient was last admitted in the hospital for similar symptoms between 07/02 through 07/04. His last follow-up visit with Dr. Elder(his GI in [facility]) is 3 weeks ago. H his symptoms started about 4 to 5
days ago but became acutely worse since the night yesterday. He is compliant with his current medication regimen, thinks pallidus treatment has significantly helped with abdominal distention, and denies having fevers, chills, hematuria, dysuria,
chest pain, shortness of breath, syncope or near syncopal episodes.
Upon arrival to the ER, his vital signs are stable, he has leukocytosis with a WBC count of 12.9, hemoglobin of 12.2 with a hematocrit of 37.2, MCV at 94.2, with mild left shift. His CO2 levels are at 18, acidotic, BUN at 28, creatinine at 1.2 with
a hemoglobin of 6%. His corrected calcium is normal at 8.2, total bili is at 1, AST at 22, ALT at 22, alk phos at 90 with a lipase at 83. His CT abdomen showed calcifications in the pancreas, and moderate thickening of the small bowel loops
(jejunum).
Past Medical History
Past Medical History: Other (SIBO, GI dysmotility, ASCVD, GERD, hypertension, type 2 diabetes, pulmonary fibrosis, vitamin D deficiency.)
Past Surgical History: Other (PCI x 6, cholecystectomy.)
Social History
Tobacco: Non-Smoker
Alcohol: None
Drug: None
Personal:
Living: With Family
Employment: Retired
Family History
Family History: Reviewed & Not Pertinent
Allergies / Home Medications
Allergy/AdvReac Type Severity Reaction Status Date / Time
No Known Allergies Allergy Verified 06/02/25 07:39
�Medication �Instructions �Recorded
aspirin 81 mg tablet,delayed 81 mg PO HS Blood clot 06/28/20
release prevention/tx
atorvastatin 80 mg tablet 80 mg PO DAILY High cholesterol 06/28/20
pyridostigmine bromide 60 mg tablet 30 mg PO BID Neurological Condition 03/19/23
prucalopride 2 mg tablet 2 mg PO HS Constipation 08/18/24
(Motegrity)
rifaximin 550 mg tablet 275 mg PO DAILY Gastrointestinal 03/08/25
Issue
glimepiride 2 mg tablet 1 mg PO DAILY Diabetes 03/30/25
prednisone 5 mg tablet 5 mg PO DAILY Autoimmune Disorder 03/30/25
metoclopramide HCl 5 mg tablet 5 mg PO QIDPRN PRN nausea and 03/31/25
(Reglan) vomiting #20 tabs
amlodipine 5 mg tablet (Norvasc) 5 mg PO DAILY Blood Pressure 06/02/25
famotidine 20 mg tablet (Pepcid) 20 mg PO DAILY Gastrointestinal 06/02/25
Issue
amlodipine 2.5 mg PO HS Blood Pressure 06/03/25
magnesium oxide 400 mg (241.3 mg 400 mg PO BID 30 days #60 tabs 06/05/25
magnesium) tablet
pantoprazole 40 mg tablet,delayed 40 mg PO DAILY 30 days #30 tabs 06/05/25
release
ondansetron 4 mg disintegrating 4 mg PO Q8H PRN nausea and 07/02/25
tablet vomiting 3 days #5 tabs
Review of Systems
-
History Source: Patient
Constitutional: Reports Fatigue
EENT: Reports No Symptoms
Respiratory: Reports No Symptoms
Cardiac: Reports No Symptoms
Abdomen/GI: Reports Abdominal Pain, Nausea, Vomiting, Diarrhea and Other (abdominal distension); Denies Constipated, Bloody Stools or Black Stools
: Reports No Symptoms
Musculoskeletal: Reports No Symptoms
Skin: Reports No Symptoms
Neurological: Reports No Symptoms
Endocrine: Reports No Symptoms
Hematologic/Lymphatic: Reports No Symptoms
Vital Signs
Temp Pulse Resp BP Pulse Ox
98.0 F 86 17 147/79 99
07/14/25 23:30 07/15/25 05:30 07/15/25 05:30 07/15/25 04:00 07/15/25 05:30
Physical Exam
Exam
General: No Apparent Distress; Negative Comfortable
Respiratory: Clear; Negative Wheezes, Rales or Rhonchi
Cardiac: S1/S2 and Regular Rhythm; Negative Murmur or Rub
GI: Soft, Non Tender, Normal Bowel Sounds (hyperactive bowel sounds), Distended and Other (tympanic on percussion); Negative Organomegaly
Musculoskeletal: No Clubbing, No Cyanosis, No Edema and Other (contractures in b/l fingers)
Skin: Warm
Neuro: AO x 3
Psych: Calm
Results
WBC 12.9 10^3/uL (4.8-10.8) H 07/15/25 05:49
Hgb 12.2 g/dL (13.0-18.0) L 07/15/25 05:49
Hct 37.2 % (39.0-52.0) L 07/15/25 05:49
MCV 94.2 fL (80.0-94.0) H 07/15/25 05:49
Plt Count 366 10^3/uL (130-400) 07/15/25 05:49
Absolute Neuts (auto) 13.9 10^3/uL (1.4-6.5) H 07/14/25 16:31
Sodium 142 mmol/L (135-145) 07/15/25 05:49
Potassium 4.5 mmol/L (3.5-5.1) 07/15/25 05:49
Chloride 115 mmol/L (98-107) H 07/15/25 05:49
Carbon Dioxide 18 mmol/L (22-30) L 07/15/25 05:49
BUN 28 mg/dl (9-20) H 07/15/25 05:49
Creatinine 1.2 mg/dL (0.7-1.3) 07/15/25 05:49
Calcium 7.7 mg/dl (8.4-10.2) L 07/15/25 05:49
Total Bilirubin 1.0 mg/dl (0.2-1.3) 07/14/25 16:31
AST 22 U/L (17-59) 07/14/25 16:31
ALT 22 U/L (0-50) 07/14/25 16:31
Alkaline Phosphatase 90 U/L (38-126) 07/14/25 16:31
Lipase 83 U/L (23-300) 07/14/25 23:09
Diagnostic Image Results:
Abdomen/pelvis CT-07/15/2025-
Surgically absent gallbladder multiple parenchymal calcifications consistent with chronic pancreatitis chronic diverticulosis no evidence for acute diverticulitis, dilatation and mild to moderate wall thickening of the jejunal small bowel loops in
the left upper quadrant which may be secondary to an enteritis or sequela of the patient's known scleroderma.
Prior GI Procedures:
EGD: 07/29/2024.
Impression: - Normal proximal esophagus.
- Small amount of retained fluid in the mid esophagus,
suctioned and cleared.
- Kite-colored mucosa suspicious for short-segment
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 Biopsied.
- Otherwise, normal esophagus without any evidence of
esophagitis, jimy-resendez tears or ulcerations
- Multiple, benign appearing gastric polyps.
Endoscopically, consistent with benign fundic gland
polyps and left intact as all were less than 1 cm
- A small amount of food (residue) in the gastric
antrum
- Otherwise, normal stomach on direct and retroflexion
views
- Small amount of retained food/residue in the
examined duodenum up to the third portion
- The examination was otherwise normal.
Recommendation: - [facility] patient to [facility] for [facility] care.
- May restart CLD today, then may advance as tolerated
- Trend Hgb with serial CBC
- Pantoprazole 40 mg once daily
- Strict avoidance of all NSAIDs
- Await pathology results.
- Repeat upper endoscopy after studies are complete
for surveillance if biopsies confirm Pickard's
esophagus based on pathology results.
- Recommend outpatient follow-up with his primary
Marketing Operations Assistant after discharge
- Discussed findings and recommendations with both
patient and primary internal medicine team
- GI will sign-off, please call back with any
questions or concerns
Colonoscopy: 06/15/23
Findings:
A 10 mm polyp was found in the hepatic flexure. The polyp was sessile.
The polyp was removed with a hot snare. Resection and retrieval were
complete.
A diminutive polyp was found in the descending colon. The polyp was
sessile. The polyp was removed with a jumbo cold forceps. Resection and
retrieval were complete.
A few small-mouthed diverticula were found in the sigmoid colon.
There is no endoscopic evidence of mass in the cecum.
Impression: - One 10 mm polyp at the hepatic flexure, removed with
a hot snare. Resected and retrieved.
- One diminutive polyp in the descending colon,
removed with a jumbo cold forceps. Resected and
retrieved.
- Diverticulosis in the sigmoid colon.
Recommendation: - Await pathology results.
- Repeat colonoscopy in 3 years for surveillance.
Assessment / Plan
-
Assessment-
75-year-old male with past medical history significant for scleroderma, gastrointestinal dysmotility, SIBO, GERD, ASCVD, pulmonary fibrosis, vitamin D deficiency hypertension, type 2 diabetes presents to the ER for evaluation of nausea vomiting and
abdominal discomfort. He is admitted for evaluation. GI is consulted for additional management of his current bowel regimen.
Problem list-
# acute nausea, vomiting and epigastric discomfort.
# SIBO
# Gastric dysmotility
# History of scleroderma
# ASCVD
# GERD
# Pulmonary fibrosis
# Type 2 diabetes mellitus
Plan-
2/3 criteria met for acute pancreatitis, physical examination findings positive for flank ecchymosis, CT showed parenchymal calcifications of the pancreas -consistent with acute on chronic pancreatitis, lipase at 83.
-continue clear liquid diet, IV Protonix, Zofran and Reglan as needed for nausea.
-Consider obtaining further workup when resuming diet, obtain fecal fat content after resuming diet.
-In the context of acute onset nausea vomiting and abdominal pain with underlying history of SIBO and chronic use of rifaximin will obtain further testing for C. difficile infection.
SIBO-continue rifaximin.
Gastric dysmotility-continue pyridostigmine, prucalopride.
GI will follow with C. difficile studies
-
-
Thank you for consultation and allowing me to participate in the patient's care. Please call the division leader GI physician during the after hours with any questions or concerns.
[2025-07-15] MEDS: HEPARIN 5000 UNITS SC ×2 (10:46→21:00)
[2025-07-15 12:26] LABS: Glucose - Point of Care 119 mg/dl (70-99)
[2025-07-15] MEDS: ZOFRAN 4 MG IV (14:01)
--- NOTE | 2025-07-15 14:05 | W.PN.HOSP.TC ---
Today's Communication/Plan
-
Supportive care
GI eval
Assessment / Plan
Assessment / Plan
75M with scleroderma, SIBO, p/w recurrent N/V/abdominal pain.
Abdominal Pain
N/V
- GI re-evaluation for additional recommendations.
- Continue pyridostigmine for now.
- Increase Xifaxan to BID dosing (currently takes daily)
- Supportive care with IVFs, pain control, antiemetics, etc.
- Start Remeron dose daily per prior GI considerations.
- Observe off of abx.
- Follow for clinical improvement.
Hypomagnesemia
- Likely combination of poor oral intake, GI losses and acid suppression therapy.
Resolved with repletion
Scleroderma
- Systemic manifestations. Continue current low-dose prednisone.
CAD
- Stable. Continue ASA, statin, etc.
Benign Hypertension
- Stable. Continue home meds with holding parameters.
DM-II
- Stable. Hold PO hypoglycemic agents.
- Follow glucose and cover with SSI as needed.
DVT Prophylaxis: SCDs
Code Status: Full
Anticipated Discharge: 24 - 48 hours
Subjective/Interval History
-
Date of Service: July 15, 2025
Patient received some Zofran for nausea which seemed to help a bit
Objective Data
-
Labs:
Laboratory Results
07/15/25
05:49
WBC 12.9 H
Hgb 12.2 L
Hct 37.2 L
Plt Count 366
Sodium 142
Potassium 4.5
Chloride 115 H
Carbon Dioxide 18 L
BUN 28 H
Creatinine 1.2
Glucose 126 H
Calcium 7.7 L
Vital Signs:
Vital Signs
Temp Pulse Resp BP Pulse Ox
98.1 F 84 17 137/72 98
07/15/25 11:37 07/15/25 11:37 07/15/25 05:30 07/15/25 11:37 07/15/25 11:37
I&O
07/14/25 07/15/25 07/16/25
06:59 06:59 06:59
Output Total 700 / 700
Balance -700 / -700
Review of Systems
-
History Source: Patient
All other systems: Reviewed and negative
Physical Exam
-
General: No Apparent Distress
HEENT: Moist Mucous Membranes, Anicteric and PERRLA
Respiratory: Clear to Auscultation and Rales (RLL); Negative Wheezes or Rhonchi
Cardiac: Regular Rhythm and S1/S2; Negative Murmur, Rub or Gallop
GI: Soft, Nondistended, Normal Bowel Sounds and Tender
Musculoskeletal: No Edema
Skin: Warm and Dry; Negative Rash, Ulcers or Lesions
Neuro: Awake and AO x 3
Hematologic / Lymphatic: No Lymphadenopathy
Psych: Calm
Data Reviewed
-
Labs: Labs Reviewed by me and Discussed with Patient
[2025-07-15 17:30] LABS: Glucose - Point of Care 106 mg/dl (70-99)
[2025-07-15 21:00] LABS: Glucose - Point of Care 92 mg/dl (70-99)
[2025-07-15] MEDS: ASPIR LOW (ENTERIC COATED) 81 MG PO ×3 (21:27→21:37)
[2025-07-15] MEDS: NORVASC 2.5 MG PO (21:37)
[2025-07-15] MEDS: REMERON 15 MG PO (22:25)
[2025-07-16 02:46] VITALS: BP 135/67
[2025-07-16 03:31] VITALS: BMI 21.5
[2025-07-16] MEDS: REGLAN 5 MG IV ×3 (04:01→20:34)
[2025-07-16 06:00] LABS: Hematocrit 34.6 % (39.0-52.0); Hemoglobin 11.3 g/dL (13.0-18.0); Mean Corp Hgb Conc. 32.7 g/dL (33.0-37.0); Mean Corpuscular Volume 94.0 fL (80.0-94.0); Platelet Count 341 10^3/uL (130-400); Red Cell Dist. Width 14.4 % (11.5-14.5)
[2025-07-16 06:29] LABS: ALT (SGPT) 18 U/L (0-50); AST (SGOT) 19 U/L (17-59); Albumin 3.8 g/dl (3.5-5.0); Alkaline Phosphatase 79 U/L (38-126); Blood Urea Nitrogen 17 mg/dl (9-20); Calcium 7.3 mg/dl (8.4-10.2); Carbon Dioxide 16 mmol/L (22-30); Chloride 112 mmol/L (98-107); Estimated Creatinine Clearance 53 ml/min; Glucose 105 mg/dl (70-99); Sodium 138 mmol/L (135-145); Total Protein 6.4 g/dl (6.3-8.2); eGFR > 60.00
[2025-07-16 06:33] LABS: Potassium 4.3 mmol/L (3.5-5.1)
[2025-07-16 09:20] VITALS: BP 119/62
[2025-07-16] MEDS: SODIUM BICARBONATE 1150 MEQ IV (09:25)
[2025-07-16] MEDS: PEPCID 20 MG PO (09:26)
[2025-07-16] MEDS: LIPITOR 80 MG PO (09:26)
[2025-07-16] MEDS: NORVASC 5 MG PO (09:27)
[2025-07-16] MEDS: HEPARIN 5000 UNITS SC ×2 (09:34→20:33)
[2025-07-16 09:53] LABS: Glucose - Point of Care 91 mg/dl (70-99)
--- NOTE | 2025-07-16 09:57 | W.PN.HOSP.TC ---
Addendum entered and electronically signed by Lucille Patrick MD 07/16/25 14:54:
cdi: FLORENCE - resolved
Original Note:
Today's Communication/Plan
-
Check stool studies
Advance diet
IV bicarb drip
Assessment / Plan
Assessment / Plan
75M with scleroderma, SIBO, p/w recurrent N/V/abdominal pain.
Abdominal Pain
N/V
- GI re-evaluation for additional recommendations. Consider flareup of SIBO/CIPO.
- Continue pyridostigmine for now.
- Increase Xifaxan to BID dosing (currently takes daily)
- Supportive care with IVFs, pain control, antiemetics, etc.
- Start Remeron dose daily per prior GI considerations.
- Observe off of abx.
Outpatient GI follow-up, fecal fat test after discharge, as he may benefit from pancreatic enzymes
CLD, advance to FLD, ADAT
Diarrhea
Check C. difficile
Check stool culture
Shiga negative, Salmonella/Campylobacter pending
If infectious workup negative, can trial antidiarrheals
NAGMA
Secondary to diarrhea
IVF with bicarb
Recheck in p.m.
Hypomagnesemia
- Likely combination of poor oral intake, GI losses and acid suppression therapy.
Recheck given diarrhea
Scleroderma
- Systemic manifestations. Continue current low-dose prednisone.
CAD
- Stable. Continue ASA, statin, etc.
Benign Hypertension
- Stable. Continue home meds with holding parameters.
DM-II
- Stable. Hold PO hypoglycemic agents.
- Follow glucose and cover with SSI as needed.
DVT Prophylaxis: Hep SQ
Code Status: Full
Anticipated Discharge: 24 - 48 hours
Subjective/Interval History
-
Date of Service: July 16, 2025
Patient reports he had extreme diarrhea overnight, he had some cramping in his abdomen but it resolved with the bowel movements, he did not have vomiting but he was nauseous until he got the Reglan. He wants to try to advance his diet.
Objective Data
-
Labs:
Laboratory Results
07/16/25
05:10
WBC 14.9 H
Hgb 11.3 L
Hct 34.6 L
Plt Count 341
Sodium 138
Potassium 4.3
Chloride 112 H
Carbon Dioxide 16 L
BUN 17
Creatinine 1.2
Glucose 105 H
Calcium 7.3 L
Total Bilirubin 1.2
AST 19
ALT 18
Alkaline Phosphatase 79
Vital Signs:
Vital Signs
Temp Pulse Resp BP Pulse Ox
98.5 F 94 20 135/67 96
07/16/25 02:46 07/16/25 02:46 07/16/25 02:46 07/16/25 02:46 07/16/25 02:46
I&O
07/15/25 07/16/25 07/17/25
06:59 06:59 06:59
Output Total 700 / 700
Balance -700 / -700
Review of Systems
-
History Source: Patient
All other systems: Reviewed and negative
Physical Exam
-
General: No Apparent Distress
HEENT: Moist Mucous Membranes, Anicteric and PERRLA
Respiratory: Clear to Auscultation and Rales (RLL); Negative Wheezes or Rhonchi
Cardiac: Regular Rhythm and S1/S2; Negative Murmur, Rub or Gallop
GI: Soft, Nontender, Nondistended and Normal Bowel Sounds
Musculoskeletal: No Edema
Skin: Warm and Dry; Negative Rash, Ulcers or Lesions
Neuro: Awake and AO x 3
Hematologic / Lymphatic: No Lymphadenopathy
Psych: Calm
Data Reviewed
-
Labs: Labs Reviewed by me, Discussed with Nurse and Discussed with Patient
[2025-07-16] MEDS: MESTINON 30 MG PO ×2 (10:15→20:33)
[2025-07-16] MEDS: XIFAXAN 275 MG PO ×2 (10:16→20:42)
[2025-07-16] MEDS: DELTASONE 5 MG PO (10:16)
[2025-07-16] MEDS: NSS IV (10:23)
[2025-07-16 10:43] LABS: Magnesium 1.8 mg/dl (1.6-2.3)
--- NOTE | 2025-07-16 11:27 | W.PN.GI.CBS2 ---
Addendum entered and electronically signed by Dimitri Esparza MD 07/16/25 16:44:
I saw and evaluated the patient. I reviewed the resident�s note and agree with findings and plan as documented in the resident�s note.
Feels better today. He developed abdominal distention similar to his prior episodes last night then passed stool and sx improved
ABD soft NT, mild distension
REC:
Advance diet
I suggested increasing his rifaxamin from 275mg daily to BID
Perhaps his SIBO regimen has become less effective over the years
If that is ineffective, perhaps increase further or switch to another abx
Check fecal fat r/o pancreatic insufficiency given his CT findings
F/U with me in office. If doing ok overnight can d/c tomorrow
Original Note:
Today's Communication / Plan
-
Advance diet to low residue diet.
Continue current medical management.
Assessment / Plan
-
Assessment-
75-year-old male with past medical history significant for scleroderma, gastrointestinal dysmotility, SIBO, GERD, ASCVD, pulmonary fibrosis, vitamin D deficiency hypertension, type 2 diabetes presents to the ER for evaluation of nausea vomiting and
abdominal discomfort. He is admitted for evaluation. GI is consulted for additional management of his current bowel regimen.
Problem list-
# acute nausea, vomiting and epigastric discomfort.
# SIBO
# Gastric dysmotility
# History of scleroderma
# ASCVD
# GERD
# Pulmonary fibrosis
# Type 2 diabetes mellitus
Plan-
Advance diet to low residue diet, continue rifaximin and to twice daily dosing.
Appreciate primary team management with IV fluids pain control and antiemetics.
Continue Remeron.
Stool cultures-Shiga negative, Salmonella/Campylobacter negative, C. difficile negative.
Gastric dysmotility-continue pyridostigmine, prucalopride.
Outpatient workup for chronic pancreatitis-fecal fat studies and Creon supplementation for chronic pancreatitis.
Subjective
Subjective
Date of Service: July 16, 2025
Patient reports cramping abdominal pain not getting and cyclical episodes although every 15 to 20 minutes, but his abdominal distention has significantly improved and he feels much better. He has some appetite, his nausea subsided and he had a
single episode of loose bowel movement about 2 hours prior to my assessment.
Objective
Data Reviewed
Laboratory Data:
Laboratory Results
07/16/25 05:10
Laboratory Results
Phosphorus 2.9 mg/dl (2.5-4.5) 07/15/25 05:49
Magnesium 1.8 mg/dl (1.6-2.3) 07/16/25 05:10
Total Bilirubin 1.2 mg/dl (0.2-1.3) 07/16/25 05:10
AST 19 U/L (17-59) 07/16/25 05:10
ALT 18 U/L (0-50) 07/16/25 05:10
Alkaline Phosphatase 79 U/L (38-126) 07/16/25 05:10
Lipase 83 U/L (23-300) 07/14/25 23:09
Vital Signs and I&O:
Vital Signs
Temp Pulse Resp BP Pulse Ox
98.5 F 94 20 135/67 96
07/16/25 02:46 07/16/25 02:46 07/16/25 02:46 07/16/25 02:46 07/16/25 02:46
I&O
07/15/25 07/16/25 07/17/25
06:59 06:59 06:59
Output Total 700 / 700
Balance -700 / -700
Physical Exam
Physical Exam
HEENT: Moist mucous membranes
Cardiology: Normal Sinus Rhythm, S1 and S2
Pulmonary: Clear
GI: Soft, Non Distended, Non Tender and Other (Hyperactive bowel sounds.)
Rectal: Other (Liquid, [place] stool scale 7.)
Extremities: No Edema
Neuro: Non Focal
--- NOTE | 2025-07-16 11:40 | PN.CDI ---
CDI
- -
CDI:
Physician Documentation Request
Admit Date: 07/15/25 03:09
Dear Doctor Darnell,
Please review the following and provide your response in the progress notes.
Clinical Indicators:
- Patient admit with abdominal pain
- No documented pmh renal disease
- 4.5L IVF given
Laboratory Tests
07/14/25 07/15/25 07/16/25
16:31 05:49 05:10
Creatinine 1.6 H 1.2 1.2
eGFR 44.93 > 60.00 > 60.00
Please clarify which of the following accurately represents the patient's renal status:
FLORENCE
FLORENCE on CKD 2
Other (please specify)
Criteria for FLORENCE*
1 Increase in serum creatinine by > or = to 0.3 mg/dL (> or = to 26.5 micromol/L) within 48 hours, OR
2 Increase in serum creatinine to > or = to 1.5 times baseline, which is known or presumed to have occurred within 7 days, OR
3 Urine volume < 0.5 nL/kg/hour for six hours
Stages of Chronic Kidney Disease*
Level Description GFR
G1 Normal or High >90
G2 Mildly decreased 60-89
G3a Mildly to moderately decreased 45-59
G3b Moderately to severely decreased 30-44
G4 Severely decreased 15-29
G5 Kidney failure <15
Use of terms such as suspected, likely, concern for, or probable (associated with a specific diagnosis that is being evaluated, monitored, or treated as if it exists) are acceptable and can be coded in the inpatient setting, when documented at the
time of discharge.
Thank you,
Moise Kowalski RN
CDI Specialist
Please use your independent medical judgment in providing your response.
*Source: Kidney Disease: Improving Global Outcomes (KDIGO) 2012
[2025-07-16 11:58] VITALS: BP 130/70
[2025-07-16 12:10] LABS: Glucose - Point of Care 99 mg/dl (70-99)
[2025-07-16 12:56] VITALS: BMI 21.5
[2025-07-16 15:00] VITALS: BP 135/62
--- NOTE | 2025-07-16 16:09 | CM ---
bowling alley manager reviewed patient's chart and met with patient and patient lives alone in a multilevel home, is independent with adl's and ambulation, patient still works, home when stable, no needs.
PCP: Tamara Bell
Pharmacy: [facility] in [place]
Plan; Home alone when stable.
[2025-07-16 16:47] LABS: Glucose - Point of Care 149 mg/dl (70-99)
[2025-07-16 16:49] LABS: ALT (SGPT) 21 U/L (0-50); AST (SGOT) 20 U/L (17-59); Albumin 3.7 g/dl (3.5-5.0); Alkaline Phosphatase 74 U/L (38-126); Blood Urea Nitrogen 16 mg/dl (9-20); Calcium 7.1 mg/dl (8.4-10.2); Carbon Dioxide 24 mmol/L (22-30); Chloride 105 mmol/L (98-107); Estimated Creatinine Clearance 53 ml/min; Glucose 140 mg/dl (70-99); Potassium 4.3 mmol/L (3.5-5.1); Sodium 136 mmol/L (135-145); Total Protein 6.2 g/dl (6.3-8.2); eGFR > 60.00
[2025-07-16 21:37] LABS: Glucose - Point of Care 88 mg/dl (70-99)
[2025-07-16 22:03] VITALS: BP 134/74
[2025-07-16] MEDS: REMERON 15 MG PO (22:04)
[2025-07-16] MEDS: NORVASC 2.5 MG PO (22:04)
[2025-07-17] MEDS: REGLAN 5 MG IV (04:03)
[2025-07-17 05:22] VITALS: BMI 22.0
--- NOTE | 2025-07-17 05:35 | TRANSFER ---
Pt transferred from (LDRP) wheelchair to bed with minimal assistance. Pt AAOx3, VSS, c/o 2/10 lower abdominal pain and denies any nausea. Pt oriented to room and safety precautions. Call reyes within reach.
[2025-07-17 05:43] VITALS: BP 153/80
[2025-07-17 06:57] VITALS: BP 129/73
[2025-07-17 08:06] LABS: Glucose - Point of Care 93 mg/dl (70-99)
[2025-07-17] MEDS: HEPARIN 5000 UNITS SC (08:14)
[2025-07-17] MEDS: NORVASC 5 MG PO (08:16)
[2025-07-17] MEDS: MESTINON 30 MG PO (08:17)
[2025-07-17] MEDS: PEPCID 20 MG PO (08:17)
[2025-07-17] MEDS: LIPITOR 80 MG PO (08:17)
[2025-07-17] MEDS: DELTASONE 5 MG PO (08:18)
[2025-07-17] MEDS: XIFAXAN 275 MG PO (08:19)
[2025-07-17 08:45] LABS: Hematocrit 36.8 % (39.0-52.0); Hemoglobin 12.3 g/dL (13.0-18.0); Mean Corp Hgb Conc. 33.4 g/dL (33.0-37.0); Mean Corpuscular Volume 91.3 fL (80.0-94.0); Platelet Count 316 10^3/uL (130-400); Red Cell Dist. Width 14.2 % (11.5-14.5)
[2025-07-17 09:23] LABS: ALT (SGPT) 21 U/L (0-50); AST (SGOT) 19 U/L (17-59); Albumin 3.9 g/dl (3.5-5.0); Alkaline Phosphatase 82 U/L (38-126); Blood Urea Nitrogen 15 mg/dl (9-20); Calcium 7.5 mg/dl (8.4-10.2); Carbon Dioxide 21 mmol/L (22-30); Chloride 110 mmol/L (98-107); Estimated Creatinine Clearance 55 ml/min; Glucose 94 mg/dl (70-99); Potassium 4.2 mmol/L (3.5-5.1); Sodium 140 mmol/L (135-145); Total Protein 6.6 g/dl (6.3-8.2); eGFR > 60.00
--- NOTE | 2025-07-17 12:51 | W.PN.GI.CBS2 ---
Today's Communication / Plan
-
Ongoing improving symptoms and agree with discharge with close outpatient f/u with GI. Rest of care as outlined below. Will sign-off, please recontact with any questions/concerns.
Assessment / Plan
-
Assessment-
75-year-old male with past medical history significant for scleroderma, gastrointestinal dysmotility, SIBO, GERD, ASCVD, pulmonary fibrosis, vitamin D deficiency hypertension, type 2 diabetes presents to the ER for evaluation of nausea vomiting and
abdominal discomfort. He is admitted for evaluation. GI is consulted for additional management of his current bowel regimen.
Problem list-
# acute nausea, vomiting and epigastric discomfort.
# SIBO
# Gastric dysmotility
# History of scleroderma
# ASCVD
# GERD
# Pulmonary fibrosis
# Type 2 diabetes mellitus
Continues to make steady improvement with less distension and having more formed stools without any worsening symptoms.
Recommendations:
- Low-residue diet as tolerated
- Agree with increasing Xifaxan 275 mg BiD given his known SIBO/CIPO
- Consider obtaining fecal fat and/or pancreatic elastase as outpatient to evaluate for pancreatic insufficiency
- Should continue Remeron and Mestinon as outpatient
- Needs close outpatient w/u with his primary GI, Dr. Esparza, and at [place] with Dr. Jacome
- Rest of care as per primary team
Discussed with primary internal medicine team this afternoon. GI will sign-off, please recontact with any questions/concerns.
Subjective
Subjective
Date of Service: July 17, 2025
- No acute events overnight
Reports feeling better, able to tolerate fish and mashed potatoes overnight. Still with mild distension but notes improving symptoms. No other nausea/vomiting. Understands close f/u with Dr. Esparza and Dr. Jacome as outpatient.
Objective
Data Reviewed
Laboratory Data:
Laboratory Results
07/17/25 08:12
07/17/25 08:12
Laboratory Results
Phosphorus 2.9 mg/dl (2.5-4.5) 07/15/25 05:49
Magnesium 1.8 mg/dl (1.6-2.3) 07/16/25 05:10
Total Bilirubin 0.8 mg/dl (0.2-1.3) 07/17/25 08:12
AST 19 U/L (17-59) 07/17/25 08:12
ALT 21 U/L (0-50) 07/17/25 08:12
Alkaline Phosphatase 82 U/L (38-126) 07/17/25 08:12
Lipase 83 U/L (23-300) 07/14/25 23:09
Vital Signs and I&O:
Vital Signs
Temp Pulse Resp BP Pulse Ox
98 F 92 16 129/70 98
07/17/25 06:57 07/17/25 06:57 07/17/25 06:57 07/17/25 08:16 07/17/25 06:57
Physical Exam
Physical Exam
HEENT: Anicteric and Moist mucous membranes
Pulmonary: Other (Normal WOB on room air)
GI: Soft, Non Distended and Non Tender
Extremities: No Edema
Neuro: Non Focal
--- NOTE | 2025-07-17 12:54 | CM ---
MD entered order for discharge.
Spoke with patient he said he was ready for discharge , Son Abdias will drive hi m home.
Offered Vn he deadlined need.
PALn Home no needs
--- NOTE | 2025-07-17 18:55 | W.DCSUMMARY ---
Discharge Summary
Discharge Data
Date of Admission: 07/15/25
Date of Discharge: 07/17/25
Total time spent discharging patient (in min): 31
-
Pending Results: No
Hospital Course
Attending physician on day of discharge:
Lucille aPtrick MD
Discharge diagnosis:
Gastric dysmotility
Secondary diagnoses:
SIBO
GERD
Scleroderma
Consultations:
GI
Procedures:
None
Hospital course:
75M with scleroderma, SIBO, p/w recurrent N/V/abdominal pain. He was seen by GI, his Xifaxan was increased to twice daily, he was placed on IV Reglan and given IV fluids and as needed IV antiemetics. His diet was gradually advanced. He did have
diarrhea and his stool studies were negative, his diarrhea improved prior to discharge.
Physical exam on discharge:
Gen: NAD
HEENT: PERRLA, EOMI, MMM, neck supple
Cards: RRR, no M/G/R
Resp: fine crackles RLL
GI: soft, NT/ND/NABS
MSK: No edema
Skin: warm and dry, no rash, ulcer or lesions
Heme: No LAD
Psych: Calm
Neuro: AAOx3
Discharge disposition:
home
Discharge Plan
-
Patient Disposition: Home (Routine Discharge)
Discharge Diagnosis/Procedures: Abdominal dysmotility
Diet: Regular
Activity: No restrictions and As tolerated
Referrals:
Dimitri Esparza MD [Active, Gastroenterology] - in four to six weeks
Referral Note: Call to make an appt with Dr. Esparza as outpatient
Tamara Bell MD [Family Provider, [facility]]
Prescriptions:
New
Xifaxan 550 mg Tablet
275 mg PO BID Qty: 0 0RF
Continued
aspirin 81 MG tablet,delayed release (DR/EC)
81 mg PO HS
atorvastatin 80 MG tablet
80 mg PO DAILY
pyridostigmine bromide 60 mg tablet
30 mg PO BID
prucalopride [Motegrity] 2 mg tablet
2 mg PO HS
Patient Comments:
patient buy from another [facility] adn then mailed to his house
prednisone 5 mg tablet
5 mg PO DAILY
glimepiride 2 mg tablet
2 mg PO DAILY
metoclopramide HCl [Reglan] 5 mg tablet
5 mg PO QIDPRN PRN (Reason: nausea and vomiting) Qty: 20 0RF
amlodipine [Norvasc] 5 mg Tablet
7.5 mg PO DAILY
amlodipine [Norvasc] 2.5 mg Tablet
2.5 mg PO HS Qty: 0
pantoprazole 40 mg Tablet,Delayed Release (Dr/Ec)
40 mg PO DAILY 30 Days Qty: 30 0RF
ondansetron 4 mg tablet,disintegrating
4 mg PO Q8H PRN (Reason: nausea and vomiting) 3 Days Qty: 5 0RF
acetaminophen [Tylenol] 325 mg Tablet
650 mg PO Q6HPRN PRN (Reason: mild pain)
Discontinued
rifaximin 550 mg Tablet
275 mg PO DAILY
Patient Comments:
patient buys from another [facility] and then mailed to his house
Discharge Orders:
Discharge Patient (As Directed); Ordered 07/17/25
Ordered By: Lucille Patrick
Discharge Date and Time
Discharge Date/Time: 07/17/25 14:21
Print Language: KOREAN
== END 2025-07-17 14:21 | disposition home or self-care (01) | DRG 394 ==
LOC: 4 EAST ACU 03:09
PROVIDERS: Emergency Medicine; ADMITTING PHYSICIAN Hospitalist; ATTENDING PHYSICIAN Internal Medicine; CONSULT PHYSICIAN Specialist; EMERGENCY PHYSICIAN Student in an Organized Health Care Education/Training Program; FAMILY PHYSICIAN Family Medicine
DX: K63.8219 Small intestinal bacterial overgrowth, unspecified (principal); E87.20 Acidosis, unspecified; N17.9 Acute kidney failure, unspecified; K30 Functional dyspepsia; K52.9 Noninfective gastroenteritis and colitis, unspecified; E83.42 Hypomagnesemia; M34.9 Systemic sclerosis, unspecified; I25.10 Atherosclerotic heart disease of native coronary artery without angina pectoris; Z79.82 Long term (current) use of aspirin; Z79.899 Other long term (current) drug therapy; I10 Essential (primary) hypertension; K31.84 Gastroparesis; E11.43 Type 2 diabetes mellitus with diabetic autonomic (poly)neuropathy; K57.30 Diverticulosis of large intestine without perforation or abscess without bleeding; K63.5 Polyp of colon; K21.9 Gastro-esophageal reflux disease without esophagitis
CPT/HCPCS: 74176; 80048; 80053; 81003; 81015; 82962; 83036; 83605; 83690; 83735; 84100; 84443; 85025; 85027; 87040; 87045; 87046; 87324; 87427; 87449; 93005; 96361; 96374; 96375; 99285